=== PATIENT | male | born 1950 | race Caucasian/White ===

== ENCOUNTER 2017-05-13 05:15 | Inpatient (IN) | END 2017-05-17 19:01 | DRG 308 ==

== ENCOUNTER 2017-05-22 13:55 | Inpatient (IN) | END 2017-05-24 11:30 | disposition home or self-care (01) | DRG 308 ==

== ENCOUNTER 2017-06-13 08:13 | Inpatient (IN) | END 2017-07-04 18:50 | DRG 286 ==

== ENCOUNTER 2017-07-08 19:30 | Inpatient (IN) | END 2017-07-28 16:23 | DRG 219 ==

== ENCOUNTER 2017-07-30 14:30 | Inpatient (IN) | END 2017-08-06 19:40 | DRG 313 ==

== ENCOUNTER 2017-08-07 11:00 | Inpatient (IN) | END 2017-10-28 19:00 | DRG 242 ==

== ENCOUNTER 2018-06-21 20:20 | Inpatient (IN) | payer MEDICARE, MEDICAID ==
[~2018-06-21] VITALS: Ht 175.3 cm; Wt 89.9 kg
[~2018-06-21 20:20] MED LIST: ACET-2047 PO; ALPR0.254 PO; APIX5TAB PO; ASCO500C7 PO; BUDE6HFA INHALATION; DULO30CA45 PO; FER325 PO; HYDR-3671 PO; ISOS10TA2 PO; METO25TA4 PO; MULTI PO; NITR0.4T39 SL; ONDA4TAB95 PO; PANT40TA3 PO; SENN-120 PO
--- NOTE | 2018-06-21 20:50 | ERD ---
ER Documentation Chief Complaint Chief Complaint bib pa from long term for trach problem and abd. labs HPI This is a 68-year-old bilateral BKA patient trach dependent who was sent from the nursing facility because of platelet count of 4 and bleeding from his tracheostomy. The patient is able to shake his head yes and no and answer basic questions he tells me he is not in pain and that he does not feel bad. He says he has not had a cough no blood in his stool no hematuria but has been having some blood discharge from his trach ROS All systems reviewed and are negative except as per history of present illness. Medications Home Meds Reported Medications Ondansetron Hcl* (Ondansetron Hcl*) 4 Mg Tablet, 4 MG PO Q4H PRN for NAUSEA AND OR VOMITING, TAB 11/11/17 Budesonide-Formoterol Fumarate* (Symbicort*) 160-4.5 Hfa.aer.ad, 1 PUFF INHALATION BID, #1 EACH 11/11/17 Sennosides* (Senna Lax*) 8.6 Mg Tablet, 1 TAB PO BID, TAB 11/11/17 Multivitamins* (Theragran*) 1 Tab Tab, 1 TAB PO DAILY, TAB 11/11/17 Metoprolol Tartrate* (Lopressor*) 25 Mg Tablet, 25 MG PO BID, #60 TAB 11/11/17 Isosorbide Dinitrate* (Isosorbide Dinitrate*) 10 Mg Tablet, 10 MG PO TID, TAB 11/11/17 Ascorbic Acid* (Vitamin C*) 500 Mg Capsule.sa, 500 MG PO DAILY, CAP 11/11/17 Pantoprazole* (Protonix*) 40 Mg Tablet.dr, 40 MG PO AC BREAKFAST, TAB 08/07/17 Hydralazine Hcl* (Hydralazine Hcl*) 25 Mg Tab, 25 MG PO Q4 PRN for ELEVATED BLO OD PRESSURE, #60 TAB 08/07/17 Apixaban* (Eliquis*) 5 Mg Tablet, 5 MG PO BID, TAB 08/07/17 Nitroglycerin* (Nitrostat*) 0.4 Mg Tab.subl, 0.4 MG SL Q5MIN PRN for CHEST PAIN, BOTTLE 05/19/17 Duloxetine Hcl* (Cymbalta*) 30 Mg Capsule.dr, 30 MG PO DAILY, CAP 05/19/17 Acetaminophen* (Acetaminophen*) 650 Mg Tablet, 650 MG PO Q6H PRN for MILD TO MODERATE PAIN, #30 TAB 03/18/17 Alprazolam* (Alprazolam*) 0.25 Mg Tablet, 0.25 MG PO TID PRN for ANXIETY, TAB 03/18/17 Ferrous Sulfate* (Ferrous Sulfate*) 325 Mg Tabec, 325 MG PO DAILY, TAB 03/18/17 Allergies Allergies: Coded Allergies: ciprofloxacin (Verified Allergy, Mild, ITCHINESS, RASH , 02/27/18) Penicillins (Verified Allergy, Unknown, 02/27/18) garlic (Verified Allergy, Unknown, 02/27/18) STOMACH UPSET morphine (Verified Allergy, Unknown, 02/27/18) povidone-iodine (Verified Allergy, Unknown, RASH, 02/27/18) soap (Verified Allergy, Unknown, RASH, 02/27/18) PMhx/Soc History of Surgery: Yes Anesthesia Reaction: No Hx Neurological Disorder: No Hx Respiratory Disorders: No Hx Cardiac Disorders: Yes Hx Psychiatric Problems: No Hx Miscellaneous Medical Probl: No Hx Alcohol Use: No Hx Substance Use: No Hx Tobacco Use: Yes FmHx Family History: No coronary disease Physical Exam Vitals Vital Signs Date Temp Pulse Resp B/P (MAP) Pulse Ox O2 O2 Flow FiO2 Time Delivery Rate 06/21/18 71 15 124/64 99 Mechanical 21:35 (84) Ventilator 06/21/18 72 15 152/91 98 Mechanical 21:13 (111) Ventilator 06/21/18 70 15 98 40 20:55 06/21/18 97.3 89 19 152/91 100 20:36 (111) Physical Exam Const: Well-developed, well-nourished Head: Atraumatic, normocephalic Eyes: Normal Conjunctiva, PERRLA, EOMI, normal sclera, no nystagmus ENT: Normal External Ears, Nose and Mouth, moist mucus membranes. Neck: Full range of motion. No meningismus, no lymphadenopathy mild erythema to the skin around the tracheostomy, there is blood in the trach that we suctioned out a few cc. Resp: Clear to auscultation bilaterally, no wheezing, rhonchi, rales Cardio: Regular rate and rhythm, no murmurs, S1 S2 present Abd: Soft, non tender x 4, non distended. Normal bowel sounds, no guarding or rebound, no pulsitile abdominal masses or bruits Skin: No petechiae or rashes, no ecchymosis , no maculopapular rash Back: No midline or flank tenderness Ext: No cyanosis, or edema, FROM x 4, normal inspection, neurovascularly intact x 4 Neur: Awake and alert, STR 5/5 x 4, sensation intact x 4, no focal findings, cerebellum intact Psych: Normal Mood and Affect Result Diagram: 06/21/18210406/21/182104 Results 24 hrs Laboratory Tests Test 06/21/18 21:05 White Blood Count 6.5 10^3/ul Red Blood Count 2.92 10^6/ul Hemoglobin 7.5 g/dl Hematocrit 26.1 % Mean Corpuscular Volume 89.4 fl Mean Corpuscular Hemoglobin 25.7 pg Mean Corpuscular Hemoglobin Concent 28.7 g/dl Red Cell Distribution Width 18.4 % Platelet Count 2 10^3/UL Mean Platelet Volume 9.4 fl Immature Granulocytes % 0.800 % Neutrophils % % Segmented Neutrophils % (Manual) 68 % Band Neutrophils % (Manual) 1 % Lymphocytes % % Lymphocytes % (Manual) 17 % Reactive Lymphocytes % (Manual) 2 % Monocytes % % Monocytes % (Manual) 11 % Eosinophils % % Eosinophils % (Manual) 1 % Basophils % % Nucleated Red Blood Cells % 0.0 /100WBC Immature Granulocytes # 0.050 10^3/ul Neutrophils # 10^3/ul Neutrophils # (Manual) 4.4 10^3/ul Band Neutrophils # 0.0 10^3/ul Lymphocytes (Manual) 1.1 10^3/ul Lymphocytes # 10^3/ul Reactive Lymphocytes # 0.1 10^3/ul Monocytes # 10^3/ul Monocytes # (Manual) 0.7 10^3/ul Eosinophils # 10^3/ul Basophils # 10^3/ul Nucleated Red Blood Cells # 10^3/ul Platelet Estimate SIG DECREASED Giant Platelets 1 % Polychromasia 2+ Anisocytosis 1+ Microcytosis 1+ Prothrombin Time 15.8 Sec Prothrombin Time Ratio 1.2 INR International Normalized Ratio 1.25 Activated Partial Thromboplast Time 39.4 Sec Sodium Level 141 mmol/L Potassium Level 4.5 mmol/L Chloride Level 98 mmol/L Carbon Dioxide Level 33 mmol/L Anion Gap 10 Blood Urea Nitrogen 47 mg/dl Creatinine 0.64 mg/dl Est Glomerular Filtrat Rate mL/min > 60 mL/min Glucose Level 91 mg/dl Calcium Level 9.0 mg/dl Total Bilirubin 1.3 mg/dl Direct Bilirubin 0.00 mg/dl Indirect Bilirubin 1.3 mg/dl Aspartate Amino Transf (AST/SGOT) 43 IU/L Alanine Aminotransferase (ALT/SGPT) 14 IU/L Alkaline Phosphatase 176 IU/L B-Type Natriuretic Peptide 42921 PG/ML Total Protein 8.3 g/dl Albumin 3.4 g/dl Globulin 4.90 g/dl Albumin/Globulin Ratio 0.69 Current Medications Medications Dose Sig/Swathi Start Time Status Last (Trade) Ordered Route PRN Stop Time Admin Dose Reason Admin Furosemide 40 mg ONCE ONCE 06/21/18 DC (Lasix) IV 23:00 06/21/18 23:01 Procedures/MDM Ordering MD: MANFRED EDMONDSON DO Location: E/R Room/Bed: PROCEDURE: XR Chest. CLINICAL INDICATION: shortness of breath TECHNIQUE: Single portable view of the chest was obtained COMPARISON: 04/02/18 FINDINGS: There is moderate cardiomegaly. There is severe pulmonary vascular congestion. There are bilateral perihilar and lower lobe increased interstitial changes. There is a tracheostomy tube and left-sided pacemaker in place. There are moderate bilateral pleural effusions. There is no pneumothorax. RPTAT: AA IMPRESSION: Moderate cardiomegaly with severe pulmonary vascular congestion. .James Jeffers MD, MD Date Time Electronically viewed and signed by .James Jeffers MD, on 06/21/2018 21:43 .S/ CC: MANFRED EDMONDSON DO [id number] Platelets were found to be level of 2 which is critical. He was getting be getting 4 rounds of platelets here with 2 packed red blood cells due to hemoglobin of 7.5. He has a very wet chest x-ray with a BNP of 12,700 give him a dose of Lasix here as well. Spoke with Dr. Mcgee will admit to telemetry. Critical Care Time: 35 minutes Treatments/Evaluations: Close monitoring and treatment of unstable vital signs, cardiorespiratory, and neurologic status, while maintaining tight balance of fluid, respiratory, and cardiac interventions. This time includes discussing the case with the patient and the patient's family. This time does not include all procedures stated elsewhere in this record. This time also includes reviewing old records, labs and radiological studies. This time includes examining and re- examining the patient. Additionally, this time also includes arranging care with admitting and consulting physicians. Departure Diagnosis: Primary Impression: Thrombocytopenia Additional Impressions: Anemia Anemia type: unspecified type Qualified Codes: D64.9 - Anemia, unspecified CHF (congestive heart failure) Heart failure type: unspecified Heart failure chronicity: unspecified Qualified Codes: I50.9 - Heart failure, unspecified Condition: MANFRED Ramey DO Jun 21, 2018 20:50
[2018-06-21] MEDS ORDERED: FUROSEMIDE 40 MG INJ IV ONE (23:00)
[2018-06-21] MEDS ORDERED: NACL 0.9% 3 ML SYG IV SCH (23:30)
[2018-06-21] MEDS ORDERED: ONDANSETRON 4 MG INJ IV PRN ×2 (23:30)
[2018-06-21] MEDS ORDERED: ACETAMINOPHEN 325 MG TAB PO PRN ×2 (23:30)
[2018-06-21] MEDS ORDERED: morphine 2 MG INJ IV PRN (23:30)
[2018-06-22] VITALS (20 sets, daily range): BP systolic 137–167; BP diastolic 63–78; PULSE 60–93; RESP 14–23; Ht 175.3 cm; Wt 89.9 kg
[2018-06-22] MEDS: FAMOTIDINE 20 MG INJ IV SCH ×2 (08:56→21:57)
--- NOTE | 2018-06-22 12:28 | HP ---
Date/Time of Note Date/Time of Note DATE: 06/22/18 TIME: 12:25 Assessment/Plan VTE Prophylaxis Pharmacological prophylaxis: NA/contraindicated Pharm contraindication: blood coag disorder Lines/Catheters [facility] Urinary Cath still in place: Yes Reason Cath still needed: skin wounds contaminated by urine Assessment/Plan Hospital Course 1) thrombocytopenia - transfuse - monitor - consider further workup if problem persists 2) anemia - probably secondary to #1 - transfuse - monitor levels 3) respiratory failure - trach still in place 4) diabetes - monitor blood sugar Result Diagram: 06/21/18210406/21/182104 Results 24hrs Laboratory Tests Test 06/21/18 21:05 06/22/18 07:50 White Blood Count 6.5 # Red Blood Count 2.92 L Hemoglobin 7.5 L Hematocrit 26.1 L Mean Corpuscular Volume 89.4 Mean Corpuscular Hemoglobin 25.7 L Mean Corpuscular Hemoglobin Concent 28.7 L Red Cell Distribution Width 18.4 H Platelet Count 2 #*L Mean Platelet Volume 9.4 Immature Granulocytes % 0.800 H Neutrophils % Segmented Neutrophils % (Manual) 68 Band Neutrophils % (Manual) 1 Lymphocytes % Lymphocytes % (Manual) 17 Reactive Lymphocytes % (Manual) 2 H Monocytes % Monocytes % (Manual) 11 Eosinophils % Eosinophils % (Manual) 1 Basophils % Nucleated Red Blood Cells % 0.0 Immature Granulocytes # 0.050 H Neutrophils # Neutrophils # (Manual) 4.4 Band Neutrophils # 0.0 Lymphocytes (Manual) 1.1 Lymphocytes # Reactive Lymphocytes # 0.1 H Monocytes # Monocytes # (Manual) 0.7 Eosinophils # Basophils # Nucleated Red Blood Cells # Platelet Estimate SIG DECREASED Giant Platelets 1 H Polychromasia 2+ Anisocytosis 1+ Microcytosis 1+ Prothrombin Time 15.8 #H Prothrombin Time Ratio 1.2 INR International Normalized Ratio 1.25 Activated Partial Thromboplast Time 39.4 H Sodium Level 141 Potassium Level 4.5 Chloride Level 98 Carbon Dioxide Level 33 H Anion Gap 10 Blood Urea Nitrogen 47 H Creatinine 0.64 Est Glomerular Filtrat Rate mL/min > 60 Glucose Level 91 Calcium Level 9.0 Total Bilirubin 1.3 Direct Bilirubin 0.00 Indirect Bilirubin 1.3 H Aspartate Amino Transf (AST/SGOT) 43 Alanine Aminotransferase (ALT/SGPT) 14 Alkaline Phosphatase 176 H B-Type Natriuretic Peptide 22091 H Total Protein 8.3 H Albumin 3.4 Globulin 4.90 H Albumin/Globulin Ratio 0.69 Bedside Glucose 111 HPI/ROS Admit Date/Time Admit Date/Time Jun 21, 2018 at 23:06 Hx of Present Illness Patient with coronary artery disease, respiratory failure with trach was transferred from [facility] for abnormal labs and tracheal bleeding. Patient was found to have severely low platelets and so was transferred for treatment and further evaluation of thrombocytopenia. PMH/Family/Social Past Medical History Respiratory failure Medical History: coronary artery disease, diabetes Medications Current Medications Ondansetron HCl (Zofran Inj) 4 mg ER BRIDGE PRN IV NAUSEA/VOMITING; Start 06/21/18 at 23:30; Stop 06/22/18 at 23:29 Acetaminophen (Tylenol Tab) 650 mg ER BRIDGE PRN PO .MILD PAIN 1-3 OR TEMP; Start 06/21/18 at 23:30; Stop 06/22/18 at 23:29 IV Flush (NS 3 ml) 3 ml PER PROTOCOL IV ; Start 06/21/18 at 23:30 Ondansetron HCl (Zofran Inj) 4 mg Q6H PRN IV NAUSEA/VOMITING; Start 06/21/18 at 23:30 Acetaminophen (Tylenol Tab) 650 mg Q6H PRN PO .PAIN 1-3 OR TEMP Last administered on 06/22/18at 10:37; Admin Dose 650 MG; Start 06/21/18 at 23:30 Famotidine (Pepcid Iv) 20 mg Q12 IV Last administered on 06/22/18at 08:56; Admin Dose 20 MG; Start 06/22/18 at 09:00 Hydromorphone HCl (Dilaudid) 1 mg Q6H PRN IV SEVERE PAIN LEVEL 7-10; Start 06/22/18 at 10:00 Clonidine (Catapres) 0.1 mg Q6H PRN GTB ELEVATED BLOOD PRESSURE Last administered on 06/22/18at 10:36; Admin Dose 0.1 MG; Start 06/22/18 at 10:00 Coded Allergies: ciprofloxacin (Verified Allergy, Mild, ITCHINESS, RASH , 02/27/18) Penicillins (Verified Allergy, Unknown, 02/27/18) garlic (Verified Allergy, Unknown, 02/27/18) STOMACH UPSET morphine (Verified Allergy, Unknown, 02/27/18) povidone-iodine (Verified Allergy, Unknown, RASH, 02/27/18) soap (Verified Allergy, Unknown, RASH, 02/27/18) Past Surgical History Past Surgical Hx: other Family History Significant Family History: no pertinent family hx Social History Smoking Status: Unknown if ever smoked Exam/Review of Systems Vital Signs Vitals Vital Signs Date Temp Pulse Resp B/P (MAP) Pulse Ox O2 O2 Flow FiO2 Time Delivery Rate 06/22/18 87 12:16 06/22/18 99.5 10:37 06/22/18 16 99 40 09:00 06/22/18 167/78 Mechanical 07:00 (107) Ventilator Exam Constitutional: well developed Head: normocephalic, atraumatic Neck: supple Respiratory: diminished breath sounds Cardiovascular: regular rate and rhythm Gastrointestinal: soft, non-tender Extremities: normal pulses JACKIE SHAVER Jun 22, 2018 12:28
[2018-06-22] MEDS: HYDROmorphONE 1 MG/ML SYG IV PRN (13:35)
[2018-06-22] MEDS: LORAZEPAM 2 MG INJ IV PRN ×2 (18:39→21:58)
[2018-06-23] VITALS (23 sets, daily range): BP systolic 142–174; BP diastolic 59–80; PULSE 69–113; RESP 14–21
[2018-06-23] MEDS: LORAZEPAM 2 MG INJ IV PRN ×4 (02:04→22:45)
[2018-06-23] MEDS: FAMOTIDINE 20 MG INJ IV SCH (09:02)
[2018-06-23] MEDS ORDERED: FUROSEMIDE 20 MG INJ IV ONE (11:00)
[2018-06-23] MEDS ORDERED: METO-429 PO (12:49)
[2018-06-23] MEDS ORDERED: OMEP40CA6 PO (12:49)
[2018-06-23] MEDS ORDERED: NOVO7030 SC (12:49)
[2018-06-23] MEDS ORDERED: ATOR20TA38 PO (12:49)
[2018-06-23] MEDS ORDERED: HYDR-3672 PO (12:49)
[2018-06-23] MEDS ORDERED: TRAM50TA2 PO (12:49)
[2018-06-23] MEDS ORDERED: GABA400C PO (12:49)
--- NOTE | 2018-06-23 13:07 | PN ---
Date/Time of Note Date/Time of Note DATE: 06/23/18 TIME: 13:02 Assessment/Plan VTE [place]axis [place] [facility] [place] 6 [place] [facility] [place] SCD contraindicated: bilateral amputee Pharmacological prophylaxis: NA/contraindicated Pharm contraindication: bleeding, thrombocytopenia Lines/Catheters [facility] Central line still needed: Yes Urinary Cath still in place: Yes Reason Cath still needed: urinary retention Assessment/Plan Hospital Course Patient is a very lethargic but arousable able to answer basic questions, undergoing platelets transfusion, continues on ventilatory support via trach. Assessment/Plan -Severe thrombocytopenia, patient is undergoing platelet transfusion. Dr. Inman is asked to see patient in hematology consultation. -Anemia -Hx of Atrial flutter. Continue metoprolol, hold Eliquis due to bleeding. -Cardiomyopathy with ejection fraction of 40% -Diabetes mellitus. Continue Lantus and NovoLog. 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 -Hx of Stage III sacral decubitus ulcer Further recommendations based on clinical course. Plan of care discussed with Dr. Villatoro. Result Diagram: 06/23/18 0634 06/23/18 0634 Results 24hrs Laboratory Tests Test 06/22/18 14:26 06/23/18 06:34 06/23/18 08:48 White Blood Count 6.6 4.6 #L Red Blood Count 3.20 L 3.40 L Hemoglobin 8.6 L 9.2 L Hematocrit 28.2 L 30.2 L Mean Corpuscular Volume 88.1 88.8 Mean Corpuscular Hemoglobin 26.9 L 27.1 L Mean Corpuscular 30.5 L 30.5 L Hemoglobin Concent Red Cell Distribution Width 16.8 H 16.7 H Platelet Count 2 *L 1 #*L Mean Platelet Volume Immature Granulocytes % 1.100 H 0.900 H Neutrophils % 76.6 Lymphocytes % 12.6 L Monocytes % 8.0 Eosinophils % 1.2 Basophils % 0.5 Nucleated Red Blood Cells % 0.0 0.0 Immature Granulocytes # 0.070 H 0.040 H Neutrophils # 5.1 Lymphocytes # 0.8 Monocytes # 0.5 Eosinophils # 0.1 Basophils # 0.0 Nucleated Red Blood Cells # 0.0 Sodium Level 142 145 H Potassium Level 4.4 4.3 Chloride Level 102 104 Carbon Dioxide Level 31 32 H Anion Gap 9 9 Blood Urea Nitrogen 35 #H 29 H Creatinine 0.70 0.68 Est Glomerular Filtrat > 60 > 60 Rate mL/min Glucose Level 130 169 Hemoglobin A1c 5.1 Calcium Level 8.8 9.2 Total Bilirubin 1.9 H Direct Bilirubin 0.00 Indirect Bilirubin 1.9 H Aspartate Amino 32 Transf (AST/SGOT) Alanine 16 Aminotransferase (ALT/SGPT) Alkaline Phosphatase 154 H Total Protein 7.5 Albumin 3.1 L Globulin 4.40 H Albumin/Globulin Ratio 0.70 Segmented Neutrophils 78 H % (Manual) Band Neutrophils % (Manual) 3 Lymphocytes % (Manual) 11 L Monocytes % (Manual) 4 Eosinophils % (Manual) 2 Basophils % (Manual) 1 Myelocytes % (Manual) 1 H Neutrophils # (Manual) 3.6 Band Neutrophils # 0.1 Lymphocytes (Manual) 0.5 L Monocytes # (Manual) 0.1 L Basophils # (Manual) 0.0 Myelocytes # 0.0 Platelet Estimate SIG DECREASED Giant Platelets 1 H Polychromasia 1+ Anisocytosis 1+ Microcytosis 1+ Macrocytosis 1+ Lab Scanned Report BLOOD TRANSFUSION Exam/Review of Systems Exam Vitals Vital Signs Date Temp Pulse Resp B/P (MAP) Pulse Ox O2 O2 Flow FiO2 Time Delivery Rate 06/23/18 98.3 69 16 145/59 98 12:47 (87) 06/23/18 30 11:34 06/23/18 Mechanical 04:37 Ventilator Intake and Output 06/22/18 06/22/18 06/23/18 1515:00 23:00 07:00 IntakeIntake Total 888 ml 479 ml OutputOutput Total 1050 ml 400 ml BalanceBalance 888 ml -571 ml -400 ml Constitutional: alert, frail Head: normocephalic Neck: supple, other (trach with bloody secretions) Cardiovascular: regular rate and rhythm Gastrointestinal: soft, non-tender, other (GT) Extremities: other (Bilateral BKA) Neurological: lethargic Results Results 24hrs Laboratory Tests Test 06/22/18 14:26 06/23/18 06:34 06/23/18 08:48 White Blood Count 6.6 4.6 #L Red Blood Count 3.20 L 3.40 L Hemoglobin 8.6 L 9.2 L Hematocrit 28.2 L 30.2 L Mean Corpuscular Volume 88.1 88.8 Mean Corpuscular Hemoglobin 26.9 L 27.1 L Mean Corpuscular 30.5 L 30.5 L Hemoglobin Concent Red Cell Distribution Width 16.8 H 16.7 H Platelet Count 2 *L 1 #*L Mean Platelet Volume Immature Granulocytes % 1.100 H 0.900 H Neutrophils % 76.6 Lymphocytes % 12.6 L Monocytes % 8.0 Eosinophils % 1.2 Basophils % 0.5 Nucleated Red Blood Cells % 0.0 0.0 Immature Granulocytes # 0.070 H 0.040 H Neutrophils # 5.1 Lymphocytes # 0.8 Monocytes # 0.5 Eosinophils # 0.1 Basophils # 0.0 Nucleated Red Blood Cells # 0.0 Sodium Level 142 145 H Potassium Level 4.4 4.3 Chloride Level 102 104 Carbon Dioxide Level 31 32 H Anion Gap 9 9 Blood Urea Nitrogen 35 #H 29 H Creatinine 0.70 0.68 Est Glomerular Filtrat > 60 > 60 Rate mL/min Glucose Level 130 169 Hemoglobin A1c 5.1 Calcium Level 8.8 9.2 Total Bilirubin 1.9 H Direct Bilirubin 0.00 Indirect Bilirubin 1.9 H Aspartate Amino 32 Transf (AST/SGOT) Alanine 16 Aminotransferase (ALT/SGPT) Alkaline Phosphatase 154 H Total Protein 7.5 Albumin 3.1 L Globulin 4.40 H Albumin/Globulin Ratio 0.70 Segmented Neutrophils 78 H % (Manual) Band Neutrophils % (Manual) 3 Lymphocytes % (Manual) 11 L Monocytes % (Manual) 4 Eosinophils % (Manual) 2 Basophils % (Manual) 1 Myelocytes % (Manual) 1 H Neutrophils # (Manual) 3.6 Band Neutrophils # 0.1 Lymphocytes (Manual) 0.5 L Monocytes # (Manual) 0.1 L Basophils # (Manual) 0.0 Myelocytes # 0.0 Platelet Estimate SIG DECREASED Giant Platelets 1 H Polychromasia 1+ Anisocytosis 1+ Microcytosis 1+ Macrocytosis 1+ Lab Scanned Report BLOOD TRANSFUSION Medications Medication Current Medications IV Flush (NS 3 ml) 3 ml PER PROTOCOL IV ; Start 06/21/18 at 23:30 Ondansetron HCl (Zofran Inj) 4 mg Q6H PRN IV NAUSEA/VOMITING; Start 06/21/18 at 23:30 Acetaminophen (Tylenol Tab) 650 mg Q6H PRN PO .PAIN 1-3 OR TEMP Last administered on 06/22/18 10:37; Admin Dose 650 MG; Start 06/21/18 at 23:30 Hydromorphone HCl (Dilaudid) 1 mg Q6H PRN IV SEVERE PAIN LEVEL 7-10 Last administered on 06/22/18 13:35; Admin Dose 1 MG; Start 06/22/18 at 10:00 Clonidine (Catapres) 0.1 mg Q6H PRN GTB ELEVATED BLOOD PRESSURE Last administered on 06/23/18 09:35; Admin Dose 0.1 MG; Start 06/22/18 at 10:00 Lorazepam (Ativan) 1 mg Q4 PRN IV ANXIETY Last administered on 06/23/18 09:35; Admin Dose 1 MG; Start 06/22/18 at 18:30 Pantoprazole (Protonix Iv) 40 mg DAILY@06 IV ; Start 06/24/18 at 06:00 Mupirocin (Bactroban) 1 applic BID TOP ; Start 06/23/18 at 21:00; Stop 07/01/18 at 09:00; Status LIDYA SANCHEZ Jun 23, 2018 13:07
--- NOTE | 2018-06-23 14:18 | CONS ---
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 start steroids dexamethasone 40 mg daily x 4 days then transition to 1 mg/kg daily with slow taper IVIG 1 gm /kg daily x 2 days check fibrinogen and monitor coags if does not have appropriate response to above therapy may need to consider re biopsy of bone marrow transfuse to keep plt > 5K check CBC q 8h keep hgb >7 Consultation Date/Type/Reason Admit Date/Time Jun 21, 2018 at 23:06 Initial Consult Date Date/Time of Note DATE: 06/23/18 TIME: 14:18 24 HR Interval Summary Free Text/Dictation Patient with coronary artery disease, respiratory failure with trach was transferred from [facility] for abnormal labs and tracheal bleeding. Patient was found to have severely low platelets and so was transferred for treatment and further evaluation of thrombocytopenia. Of note his plt count an admission was 2K. He had normal plt count during last admission in the 200K range had Bone marrow biopsy in September 2017 showing no obvious pathology but was suggestive of perhaps peripheral plt destruction + TERESE + Hep C ab but negative pcr negative for Hep B h/o negative antiplt antibodies pt currently has completed plt transfusion Exam/Review of Systems Exam Vitals Vital Signs Date Temp Pulse Resp B/P (MAP) Pulse Ox O2 O2 Flow FiO2 Time Delivery Rate 06/23/18 98.3 69 16 145/59 98 12:47 (87) 06/23/18 30 11:34 06/23/18 Mechanical 04:37 Ventilator Intake and Output 06/22/18 06/22/18 06/23/18 1515:00 23:00 07:00 IntakeIntake Total 888 ml 479 ml OutputOutput Total 1050 ml 400 ml BalanceBalance 888 ml -571 ml -400 ml Constitutional: frail Psych: confusion Head: normocephalic, atraumatic ENMT: nl external ears & nose, nl lips & teeth, nl nasal mucosa & septum Respiratory: normal air movement, diminished breath sounds Gastrointestinal: soft, nl liver, spleen, non-tender Results Result Diagram: 06/23/1834 06/23/18 0634 Results 24hrs Laboratory Tests Test 06/22/18 14:26 06/23/18 06:34 06/23/18 08:48 White Blood Count 6.6 4.6 #L Red Blood Count 3.20 L 3.40 L Hemoglobin 8.6 L 9.2 L Hematocrit 28.2 L 30.2 L Mean Corpuscular Volume 88.1 88.8 Mean Corpuscular Hemoglobin 26.9 L 27.1 L Mean Corpuscular 30.5 L 30.5 L Hemoglobin Concent Red Cell Distribution Width 16.8 H 16.7 H Platelet Count 2 *L 1 #*L Mean Platelet Volume Immature Granulocytes % 1.100 H 0.900 H Neutrophils % 76.6 Lymphocytes % 12.6 L Monocytes % 8.0 Eosinophils % 1.2 Basophils % 0.5 Nucleated Red Blood Cells % 0.0 0.0 Immature Granulocytes # 0.070 H 0.040 H Neutrophils # 5.1 Lymphocytes # 0.8 Monocytes # 0.5 Eosinophils # 0.1 Basophils # 0.0 Nucleated Red Blood Cells # 0.0 Sodium Level 142 145 H Potassium Level 4.4 4.3 Chloride Level 102 104 Carbon Dioxide Level 31 32 H Anion Gap 9 9 Blood Urea Nitrogen 35 #H 29 H Creatinine 0.70 0.68 Est Glomerular Filtrat > 60 > 60 Rate mL/min Glucose Level 130 169 Hemoglobin A1c 5.1 Calcium Level 8.8 9.2 Total Bilirubin 1.9 H Direct Bilirubin 0.00 Indirect Bilirubin 1.9 H Aspartate Amino 32 Transf (AST/SGOT) Alanine 16 Aminotransferase (ALT/SGPT) Alkaline Phosphatase 154 H Total Protein 7.5 Albumin 3.1 L Globulin 4.40 H Albumin/Globulin Ratio 0.70 Segmented Neutrophils 78 H % (Manual) Band Neutrophils % (Manual) 3 Lymphocytes % (Manual) 11 L Monocytes % (Manual) 4 Eosinophils % (Manual) 2 Basophils % (Manual) 1 Myelocytes % (Manual) 1 H Neutrophils # (Manual) 3.6 Band Neutrophils # 0.1 Lymphocytes (Manual) 0.5 L Monocytes # (Manual) 0.1 L Basophils # (Manual) 0.0 Myelocytes # 0.0 Platelet Estimate SIG DECREASED Giant Platelets 1 H Polychromasia 1+ Anisocytosis 1+ Microcytosis 1+ Macrocytosis 1+ Lab Scanned Report BLOOD TRANSFUSION Medications Medication Current Medications IV Flush (NS 3 ml) 3 ml PER PROTOCOL IV ; Start 06/21/18 at 23:30 Ondansetron HCl (Zofran Inj) 4 mg Q6H PRN IV NAUSEA/VOMITING; Start 06/21/18 at 23:30 Acetaminophen (Tylenol Tab) 650 mg Q6H PRN PO .PAIN 1-3 OR TEMP Last administered on 06/22/18at 10:37; Admin Dose 650 MG; Start 06/21/18 at 23:30 Hydromorphone HCl (Dilaudid) 1 mg Q6H PRN IV SEVERE PAIN LEVEL 7-10 Last a dministered on 06/22/18at 13:35; Admin Dose 1 MG; Start 06/22/18 at 10:00 Clonidine (Catapres) 0.1 mg Q6H PRN GTB ELEVATED BLOOD PRESSURE Last administered on 06/23/18at 09:35; Admin Dose 0.1 MG; Start 06/22/18 at 10:00 Lorazepam (Ativan) 1 mg Q4 PRN IV ANXIETY Last administered on 06/23/18at 09:35; Admin Dose 1 MG; Start 06/22/18 at 18:30 Pantoprazole (Protonix Iv) 40 mg DAILY@06 IV ; Start 06/24/18 at 06:00 Mupirocin (Bactroban) 1 applic BID TOP ; Start 06/23/18 at 21:00; Stop 07/01/18 at 09:00 BART MONTOYA Jun 23, 2018 14:18
[2018-06-23] MEDS ORDERED: IMMUNE GLOBULIN (HUMAN) 6 GM INJ IV SCH (15:00)
[2018-06-23] MEDS: DEXAMETHASONE 4 MG TAB PO SCH (15:46)
--- NOTE | 2018-06-23 16:09 | PN ---
DATE: 06/23/2018 ADDENDUM: I called the patient's sister, Georgina, and updated her regarding patient's condition, especially sever e thrombocytopenia. I also explained her differential diagnosis, plan of treatment including steroid s and hemoglobin. All questions answered. Dictated By: NOE MINOR MD AB/NTS Conf#: [id number] DID#: [id number] CC: JACKIE SHAVER MD;*EndCC*
[2018-06-23] MEDS ORDERED: METOPROLOL 5 MG INJ IV PRN (20:00)
[2018-06-23] MEDS ORDERED: hydrALAzine 20 MG INJ IV PRN (20:00)
[2018-06-23] MEDS: ATORVASTATIN 20 MG TAB PO SCH (20:27)
[2018-06-23] MEDS: ISOSORBIDE DINITRATE 10 MG TAB PO SCH (20:28)
[2018-06-23] MEDS: FUROSEMIDE 20 MG INJ IV SCH (20:28)
[2018-06-23] MEDS: [UNRECOGNIZED DRUG - OTHER] IVPB SCH (20:33)
--- NOTE | 2018-06-23 20:35 | CONS ---
DATE OF ADMISSION: 06/21/2018 DATE OF CONSULTATION: 06/23/2018 TYPE OF CONSULTATION: Cardiology. REASON FOR CONSULTATION: Hypertension, history of permanent pacemaker, history of AVR. REQUESTING PHYSICIAN: Roberto Villatoro MD HISTORY OF PRESENT ILLNESS: Mr. 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 Upon arrival, temperature of 98.4, blood pressure 152/91, pulse 89, respiratory rate 18, saturating 100%. The patient's labs were notable for white blood cell count of 6.5, hemoglobin 7.5 and platelet count of 2, sodium 141, potassium 4.5, creatinine 0.64, BUN 47, AST 43, ALT 14, INR 1.25. The patient underwent chest x-ray revealing moderate cardiomegaly and keren re pulmonary vascular congestion. The patient has subsequently been admitted to the floor and since admit to the floor, the patient was given a dose of Lasix, treated with Decadron and has been transfu sed with platelets. PAST MEDICAL HISTORY: As above in HPI. MEDICATIONS CURRENTLY IN HOSPITAL: 1. Protonix 40 mg IV daily. 2. Mupirocin. 3. Decadron 4 mg IV daily. 4. Ativan p.r.n. 5. Dilaudid p.r.n. 6. Clonidine p.r.n. ALLERGIES: 1. PENICILLIN. 2. CIPROFLOXACIN. SOCIAL HISTORY: No current tobacco, EtOH or illicit drug use. FAMILY HISTORY: No history of sudden cardiac or early CAD. REVIEW OF SYSTEMS: As above in HPI. CONSTITUTIONAL: No fevers, chills. PULMONARY: No current shortness of breath. CARDIOVASCULAR: No current signs of chest pain with history of AVR, history of CABG. GASTROINTESTINAL: Dysphagia, status post G-tube. GENITOURINARY: Renal failure. PSYCHIATRIC: Possible psych history. NEUROLOGIC: No documented history of CVA. PHYSICAL EXAMINATION VITAL SIGNS: Temperature of 98.4, blood pressure 164/72, pulse 89, respiratory rate 16, satting 92%. GENERAL: The patient is alert, awake, in no acute distress. NECK: Tracheostomy in place. CHEST: Upper airway transmitted rhonchus sounds. HEART: Regular rate and rhythm. Normal S1, S2, I/ systolic murmur, nondisplaced PMI. ABDOMEN: Positive bowel sounds, soft. EXTREMITIES: No significant pitting edema, 1+ pulses bilaterally posterior tibial. LABORATORIES: Most recently from today, sodium 145, potassium 4.3, creatinine 0.68, BUN 29. White b lood cell count 4.6, hemoglobin 9.2, platelet count of 1. INR of 1.2. IMAGING STUDIES: As above in HPI. No further imaging studies for my review at this time. ELECTROCARDIOGRAM: No electrocardiograms for my review at this time. IMPRESSION: 1. Congestive heart failure by chest x-ray, question systolic versus diastolic, could be diastolic b y most recent echo in 07/2017, acute on chronic. 2. Hypertension, uncontrolled. 3. Dyslipidemia. 4. History of aortic valve replacement with a bioprosthesis in 06/2017. 5. History of coronary artery disease, status post coronary artery bypass graft surgery, receiving L BOBBY to LAD in 06/2017. 6. Thrombocytopenia, severe on steroids, question idiopathic thrombocytopenic purpura. 7. Anemia. 8. Diabetes mellitus. 9. Permanent pacemaker. RECOMMENDATIONS: 1. At this time, we would maintain the patient on telemetry monitoring to follow rhythm and rate con trol closely. 2. We would resume the patient's baseline antihypertensives with hydralazine and metoprolol. 3. We will give patient gentle Lasix diuresis. 4. We will transfuse platelets as you are doing. 5. Continue the patient's steroids. 6. Ongoing hematology evaluation of thrombocytopenia. Follow for any bleeding complications. 7. We will hold on any systemic coagulation in the setting of history of paroxysmal atrial fibrillat ion and flutter given severe thrombocytopenia. 8. We will get a 2D echo to reassess patient's ejection fraction, wall motion or any major valve abn ormalities. Thank you for allowing me to take part in the care of this patient. I will continue to follow him ve ry closely with you with further recommendations to be made as the [facility]. Dictated By: RODGER HEMPHILL/KRYSTAL Conf#: [id number] DID#: [id number] CC: JACKIE SHAVER MD;*EndCC*
[2018-06-23] MEDS: MUPIROCIN 2% 22 GM OINT TOP SCH (20:50)
[2018-06-23] MEDS: HYDROmorphONE 1 MG/ML SYG IV PRN (20:50)
[2018-06-23] MEDS: METOPROLOL 50 MG TAB PO SCH (22:45)
[2018-06-24] VITALS (29 sets, daily range): BP systolic 134–194; BP diastolic 62–91; PULSE 65–108; RESP 14–29
[2018-06-24] MEDS: HYDROmorphONE 1 MG/ML SYG IV PRN ×3 (02:41→21:40)
[2018-06-24] MEDS: LORAZEPAM 2 MG INJ IV PRN ×2 (04:19→08:12)
[2018-06-24] MEDS: FUROSEMIDE 20 MG INJ IV SCH ×2 (06:16→09:14)
[2018-06-24] MEDS: METOPROLOL 50 MG TAB PO SCH ×3 (06:16→21:40)
[2018-06-24] MEDS: PANTOPRAZOLE 40 MG INJ IV SCH (06:33)
[2018-06-24] MEDS: ISOSORBIDE DINITRATE 10 MG TAB PO SCH ×3 (09:14→21:43)
[2018-06-24] MEDS: DEXAMETHASONE 4 MG TAB PO SCH (09:14)
[2018-06-24] MEDS: MUPIROCIN 2% 22 GM OINT TOP SCH ×2 (09:15→23:32)
[2018-06-24] MEDS ORDERED: DIPHENHYDRAMINE 50 MG INJ IV ONE (09:30)
[2018-06-24] MEDS: [UNRECOGNIZED DRUG - OTHER] IVPB SCH (10:12)
--- NOTE | 2018-06-24 14:32 | CONS ---
Consult Date/Type/Reason Admit Date/Time Jun 21, 2018 at 23:06 Initial Consult Date Date/Time of Note DATE: 06/24/18 TIME: 14:29 Subjective NO acute events - BP on high side - pt agitated - plt low - no active bleed - will monitor - pacer on place ROS: per nurse - agitated, no F/C/N/V/D Objective Vitals Vital Signs Date Temp Pulse Resp B/P (MAP) Pulse Ox O2 O2 Flow FiO2 Time Delivery Rate 06/24/18 113 29 100 40 13:55 06/24/18 98.9 152/67 12:00 (95) 06/24/18 Mechanical 07:42 Ventilator Intake and Output 06/23/18 06/23/18 06/24/18 1515:00 23:00 07:00 IntakeIntake Total 0 ml 1608 ml OutputOutput Total 1600 ml 900 ml BalanceBalance -1600 ml 708 ml Exam General: WN/WD/NAD, AOx agitatetd HEENT: Unicetric/atraumatic/EOMI (does not follow commands) NECK: trach Lymph: no lymphadenopathy HEART: regular with no S3, II/ systolic murmur at apex, paced LUNGS: Coarse sounds ABD: soft, NT, ND, +BS : Intact Neuro: non focal SKIN: chronic changes EXT: trace edema, restraints Results/Medications Result Diagram: 06/24/1881806/24/18818 Results 24 hrs Laboratory Tests Test 06/23/18 15:54 06/23/18 20:27 06/24/18 00:27 06/24/18 08:19 Fibrinogen 501.0 #H White Blood Count 6.0 # 5.1 Red Blood Count 3.34 L 3.38 L Hemoglobin 9.0 L 9.0 L Hematocrit 29.5 L 30.3 L Mean Corpuscular 88.3 89.6 Volume Mean Corpuscular 26.9 L 26.6 L Hemoglobin Mean Corpuscular 30.5 L 29.7 L Hemoglobin Concent Red Cell 16.6 H 17.0 H Distribution Width Platelet Count 2 #*L 7 #*L Mean Platelet Volume Immature 0.700 H 0.800 H Granulocytes % Neutrophils % 87.8 H Segmented 92 H Neutrophils % (Manual) Band Neutrophils % 4 (Manual) Lymphocytes % 6.7 L Lymphocytes % 4 L (Manual) Monocytes % 4.5 Eosinophils % 0.0 Basophils % 0.2 Nucleated Red 0.0 0.0 Blood Cells % Immature 0.040 H 0.040 H Granulocytes # Neutrophils # 4.5 Neutrophils # 5.5 (Manual) Band Neutrophils # 0.2 Lymphocytes 0.2 L (Manual) Lymphocytes # 0.3 L Monocytes # 0.2 L Eosinophils # 0.0 Basophils # 0.0 Nucleated Red 0.0 Blood Cells # Platelet Estimate SIG DECREASED Giant Platelets 1 H Polychromasia 3+ Poikilocytosis 2+ Anisocytosis 1+ Microcytosis 1+ Troponin I 0.071 0.053 Sodium Level 144 Potassium Level 4.3 Chloride Level 98 Carbon Dioxide 29 Level Anion Gap 17 #H Blood Urea 29 H Nitrogen Creatinine 0.67 Est Glomerular > 60 Filtrat Rate mL/min Glucose Level 352 #H Calcium Level 9.3 Home Meds Reported Medications Tramadol HCl (Tramadol HCl) 50 Mg Tablet, 50 MG PO Q6H PRN for PAIN LEVEL 7-10, #120 TAB 06/23/18 Hydralazine Hcl* (Hydralazine Hcl*) 50 Mg Tab, 50 MG PO Q8 for hypertension, #90 TAB 06/23/18 Gabapentin* (Neurontin*) 400 Mg Capsule, 400 MG PO Q8, #90 CAP 06/23/18 Insulin Isophan/Regular (Humulin 70/30) 100 Units/Ml Susp, 18 UNIT SC Q8, EA 06/23/18 Omeprazole* (Omeprazole*) 40 Mg Capsule.dr, 40 MG PO DAILY, #30 CAP 06/23/18 Metoprolol Tartrate* (Lopressor*) 50 Mg Tab, 50 MG PO Q8, #60 TAB 06/23/18 Atorvastatin Calcium* (Atorvastatin Calcium*) 20 Mg Tablet, 20 MG PO QHS, #30 TAB 06/23/18 Ondansetron Hcl* (Ondansetron Hcl*) 4 Mg Tablet, 4 MG PO Q4H PRN for NAUSEA AND OR VOMITING, TAB 11/11/17 Budesonide-Formoterol Fumarate* (Symbicort*) 160-4.5 Hfa.aer.ad, 1 PUFF INHALATION BID, #1 EACH 11/11/17 Sennosides* (Senna Lax*) 8.6 Mg Tablet, 1 TAB PO BID, TAB 11/11/17 Multivitamins* (Theragran*) 1 Tab Tab, 1 TAB PO DAILY, TAB 11/11/17 Isosorbide Dinitrate* (Isosorbide Dinitrate*) 10 Mg Tablet, 10 MG PO TID, TAB 11/11/17 Ascorbic Acid* (Vitamin C*) 500 Mg Capsule.sa, 500 MG PO DAILY, CAP 11/11/17 Pantoprazole* (Protonix*) 40 Mg Tablet.dr, 40 MG PO AC BREAKFAST, TAB 08/07/17 Apixaban* (Eliquis*) 5 Mg Tablet, 5 MG PO BID, TAB 08/07/17 Nitroglycerin* (Nitrostat*) 0.4 Mg Tab.subl, 0.4 MG SL Q5MIN PRN for CHEST PAIN, BOTTLE 05/19/17 Duloxetine Hcl* (Cymbalta*) 30 Mg Capsule.dr, 30 MG PO DAILY, CAP 05/19/17 Acetaminophen* (Acetaminophen*) 650 Mg Tablet, 650 MG PO Q6H PRN for MILD TO MODERATE PAIN, #30 TAB 03/18/17 Alprazolam* (Alprazolam*) 0.25 Mg Tablet, 0.25 MG PO TID PRN for ANXIETY, TAB 03/18/17 Ferrous Sulfate* (Ferrous Sulfate*) 325 Mg Tabec, 325 MG PO DAILY, TAB 03/18/17 Medications Current Medications IV Flush (NS 3 ml) 3 ml PER PROTOCOL IV ; Start 06/21/18 at 23:30 Ondansetron HCl (Zofran Inj) 4 mg Q6H PRN IV NAUSEA/VOMITING Last administered on 06/24/18at 08:09; Admin Dose 4 MG; Start 06/21/18 at 23:30 Acetaminophen (Tylenol Tab) 650 mg Q6H PRN PO .PAIN 1-3 OR TEMP Last administered on 06/22/18at 10:37; Admin Dose 650 MG; Start 06/21/18 at 23:30 Hydromorphone HCl (Dilaudid) 1 mg Q6H PRN IV SEVERE PAIN LEVEL 7-10 Last administered on 06/24/18at 02:41; Admin Dose 1 MG; Start 06/22/18 at 10:00 Clonidine (Catapres) 0.1 mg Q6H PRN GTB ELEVATED BLOOD PRESSURE Last administered on 06/23/18 09:35; Admin Dose 0.1 MG; Start 06/22/18 at 10:00 Lorazepam (Ativan) 1 mg Q4 PRN IV ANXIETY Last administered on 06/24/18 08:12; Admin Dose 1 MG; Start 06/22/18 at 18:30 Pantoprazole (Protonix Iv) 40 mg DAILY@06 IV Last administered on 06/24/18 06:33; Admin Dose 40 MG; Start 06/24/18 at 06:00 Mupirocin (Bactroban) 1 applic BID TOP Last administered on 06/24/18 09:15; Admin Dose 1 APPLIC; Start 06/23/18 at 21:00; Stop 07/01/18 at 09:00 Dexamethasone (Decadron) 4 mg DAILY PO Last administered on 06/24/18 09:14; Admin Dose 4 MG; Start 06/23/18 at 15:00; Stop 06/26/18 at 09:01 Atorvastatin Calcium (Lipitor) 20 mg QHS PO Last administered on 06/23/18 20:27; Admin Dose 20 MG; Start 06/23/18 at 21:00 Hydralazine HCl (Apresoline) 50 mg Q8 PO Last administered on 06/24/18 14:06; Admin Dose 50 MG; Start 06/23/18 at 22:00 Isosorbide Dinitrate (Isordil) 10 mg TID PO Last administered on 06/24/18 14:06; Admin Dose 10 MG; Start 06/23/18 at 21:00 Metoprolol Tartrate (Lopressor) 50 mg Q8 PO Last administered on 06/24/18 14:06; Admin Dose 50 MG; Start 06/23/18 at 22:00 Hydralazine HCl (Apresoline) 10 mg Q4H PRN IV HR>110 Hold SBP<100 Last administered on 06/24/18 04:19; Admin Dose 10 MG; Start 06/23/18 at 20:00 Furosemide (Lasix) 20 mg BID DIURETICS IV Last administered on 06/24/18 09:14; Admin Dose 20 MG; Start 06/23/18 at 20:00 Metoprolol Tartrate (Lopressor) 5 mg Q4H PRN IV HR>110 Hold SBP<100; Start 06/23/18 at 20:00 Collagenase (Santyl) 1 applic DAILY TOP ; Start 06/25/18 at 09:00 Assessment/Plan Hospital Course (Demo Recall) 1. Congestive heart failure by chest x-ray, question systolic versus diastolic, could be diastolic by most recent echo in 07/2017, acute on chronic - con't gentle diuresis. 2. Hypertension, uncontrolled - with agitation - con't med rx. 3. Dyslipidemia. 4. History of aortic valve replacement with a bioprosthesis in 06/2017. Stable by exam. 5. History of coronary artery disease, status post coronary artery bypass graft surgery, receiving AHUJA to LAD in 06/2017. 6. Thrombocytopenia, severe on steroids, question idiopathic thrombocytopenic purpura. 7. Anemia. 8. Diabetes mellitus. 9. Permanent pacemaker- no evidence of malfunction now. REGINA TOMAS MD Jun 24, 2018 14:32
--- NOTE | 2018-06-24 16:51 | RADRPT ---
Echocardiogram Report Patient Name: MEKHI CALIXTOPatient ID: [id number] : 1950 (68y 5m)Study Date: 06/24/2018 8:24:00 AM Gender: MAccession #: [id number] Tech: [place] Location: Ref.Physician: RODGER ROBERTSON Height(Cm): BSA: Weight(Kg): Quality: Technically Difficult StudyAccount #: Procedures: Echocardiographic Report: Transthoracic echocardiogram with complete 2D, M-Mode, and doppler examination. Indications: Congestive Heart Failure. Measurements: 2D/M Mode Doppler Measurement Value Normal Range Measurement Value Normal Range LVIDd 2D 3.0 [ 4.2 - 5.8 ] cm AV Mean Timbo 1.7 [ 70.0 - 90.0 ] cm/sec LVIDs 2D 2.4 [ 2.5 - 4.0 ] cm AV Mean PG 15.0 [ 2.0 - 4.0 ] mmHg LVPWd 2D 1.3 [ 0.6 - 1.0 ] cm AV VTI 54.5 cm IVSd 2D 1.4 [ 0.6 - 1.0 ] cm LVOT Mean Timbo 1.1 [ 60.0 - 80.0 ] cm/sec AoR Diam 2D 2.2 [ 2.6 - 3.4 ] cm LVOT Mean PG 5.0 [ 1.0 - 3.0 ] mmHg EDV 2D 33.6 [ 62.0 - 150.0 ] ml LVOT Peak Timbo 1.6 [ 70.0 - 110.0 ] cm/sec ESV 2D 20.0 [ 21.0 - 61.0 ] ml LVOT Peak PG 10.0 [ 2.0 - 6.0 ] mmHg EF 2D 40.5 [ 52.0 - 72.0 ] percent LVOT VTI 30.0 [ 20.0 - 30.0 ] cm LA Dimen 2D 4.5 [ 3.0 - 4.0 ] cm MV Peak Timbo 2.3 [ 60.0 - 130.0 ] cm/sec MV Peak PG 20.0 [ 1.0 - 10.0 ] mmHg MV Mean Timbo 1.6 cm/sec MV Mean PG 11.0 mmHg MV VTI 37.1 cm TR Peak Timbo 4.6 [ 100.0 - 280.0 ] cm/sec TR Peak PG 84.0 mmHg RVSP 92.0 [ 10.0 - 36.0 ] mmHg RA Pressure 8.0 mmHg Findings: Left Ventricle: Normal left ventricular systolic function. Normal left ventricular cavity size. Moderate concentric left ventricular hypertrophy. Ejection fraction is visually estimated at 55 %. Abnormal Diastolic Function. Right Ventricle: Normal right ventricular size. Normal right ventricular systolic function. Linear artifact in right ventricle suggestive of catheter, pacer lead, or ICD lead. Left Atrium: There is mild enlargement of left atrium. Right Atrium: The right atrium is normal in size. Mitral Valve: Mitral valve is not well visualized. Moderate mitral leaflet calcification. Moderate mitral annular calcification. Trace mitral regurgitation. Moderate to severe mitral stenosis. Mitral valve Max Velocity 2.25 m/sec. MaxPG 20.00 mmHg. MeanPG 11.00 mmHg. Aortic Valve: Aortic Valve Bio Prosthesis. Aortic valve Max velocity 2.70 m/sec. Max PG 29.00 mmHg. Mean PG 15.00 mmHg. No aortic regurgitation. Tricuspid Valve: Normal appearance of the tricuspid valve. Estimated peak PA systolic pressure 92 mmHg. Pulmonic Valve: Pulmonic valve not well visualized. Pericardium: Normal pericardium with no significant pericardial effusion. Aorta: Normal aortic root. IVC: Inferior vena cava without respiratory collapse, however, patient on ventilator. Conclusions: Normal left ventricular systolic function. Normal left ventricular cavity size. Moderate concentric left ventricular hypertrophy. Ejection fraction is visually estimated at 55 %. Abnormal Diastolic Function. There is mild enlargement of left atrium. Mitral valve is not well visualized. Moderate mitral leaflet calcification. Moderate mitral annular calcification. Trace mitral regurgitation. Moderate to severe mitral stenosis by gradient. Would recommend additional immages of mitral valve for improved assessment.Mitral valve Max Velocity 2.25 m/sec. MaxPG 20.00 mmHg. MeanPG 11.00 mmHg. Aortic Valve Bio Prosthesis. Aortic valve Max velocity 2.70 m/sec. Max PG 29.00 mmHg. Mean PG 15.00 mmHg. No aortic regurgitation. Normal appearance of the tricuspid valve. Estimated peak PA systolic pressure 92 mmHg. Electronically Signed By: Rodger Robertson 2018-06-24 16:50:30 PDT
--- NOTE | 2018-06-24 18:30 | PN ---
Date/Time of Note Date/Time of Note DATE: 06/24/18 TIME: 18:29 Assessment/Plan VTE Prophylaxis Risk score (from [facility] [place])>0 risk: 7 SCD applied (from [facility] [place]): No SCD contraindicated: bilateral amputee Pharmacological prophylaxis: NA/contraindicated Pharm contraindication: bleeding, thrombocytopenia Lines/Catheters IV Catheter Type (from [email or web address] Mid Line Central line still needed: Yes Urinary Cath still in place: Yes Reason Cath still needed: urinary retention Assessment/Plan Hospital Course Platelets increased to 11K, continue current treatment, pt continues on vent, stable VS. Assessment/Plan -Severe thrombocytopenia, s/p platelet transfusion. Possible ITP, continue steroids, IVIG. Dr. Inman is following in hematology consultation. -Anemia, monitor H&H. -Hx of Atrial flutter. Continue metoprolol, hold Eliquis due to bleeding. -Cardiomyopathy with ejection fraction of 40% -Diabetes mellitus. Continue Lantus and NovoLog. 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 -Hx of Stage III sacral decubitus ulcer Further recommendations based on clinical course. Plan of care discussed with Dr. Villatoro. Result Diagram: 06/24/18 1734 06/24/18 0819 Results 24hrs Laboratory Tests Test 06/23/18 20:27 06/24/18 00:27 06/24/18 08:19 06/24/18 14:42 White Blood Count 6.0 # 5.1 Red Blood Count 3.34 L 3.38 L Hemoglobin 9.0 L 9.0 L Hematocrit 29.5 L 30.3 L Mean Corpuscular 88.3 89.6 Volume Mean Corpuscular 26.9 L 26.6 L Hemoglobin Mean Corpuscular 30.5 L 29.7 L Hemoglobin Concent Red Cell 16.6 H 17.0 H Distribution Width Platelet Count 2 #*L 7 #*L Mean Platelet Volume Immature 0.700 H 0.800 H Granulocytes % Neutrophils % 87.8 H Segmented 92 H Neutrophils % (Manual) Band Neutrophils % 4 (Manual) Lymphocytes % 6.7 L Lymphocytes % 4 L (Manual) Monocytes % 4.5 Eosinophils % 0.0 Basophils % 0.2 Nucleated Red 0.0 0.0 Blood Cells % Immature 0.040 H 0.040 H Granulocytes # Neutrophils # 4.5 Neutrophils # 5.5 (Manual) Band Neutrophils # 0.2 Lymphocytes 0.2 L (Manual) Lymphocytes # 0.3 L Monocytes # 0.2 L Eosinophils # 0.0 Basophils # 0.0 Nucleated Red 0.0 Blood Cells # Platelet Estimate SIG DECREASED Giant Platelets 1 H Polychromasia 3+ Poikilocytosis 2+ Anisocytosis 1+ Microcytosis 1+ Troponin I 0.071 0.053 0.055 Sodium Level 144 Potassium Level 4.3 Chloride Level 98 Carbon Dioxide 29 Level Anion Gap 17 #H Blood Urea 29 H Nitrogen Creatinine 0.67 Est Glomerular > 60 Filtrat Rate mL/min Glucose Level 352 #H Calcium Level 9.3 Test 06/24/18 17:34 Platelet Count 11 #*L Exam/Review of Systems Exam Vitals Vital Signs Date Temp Pulse Resp B/P (MAP) Pulse Ox O2 O2 Flow FiO2 Time Delivery Rate 06/24/18 99.0 74 17 153/77 93 18:00 (102) 06/24/18 30 17:34 06/24/18 Mechanical 07:42 Ventilator Intake and Output 06/23/18 06/23/18 06/24/18 1515:00 23:00 07:00 IntakeIntake Total 0 ml 1608 ml OutputOutput Total 1600 ml 900 ml BalanceBalance -1600 ml 708 ml Exam Constitutional: alert, frail Head: normocephalic Neck: supple, other (trach with bloody secretions) Cardiovascular: regular rate and rhythm Gastrointestinal: soft, non-tender, other (GT) Extremities: other (Bilateral BKA) Neurological: lethargic Results Results 24hrs Laboratory Tests Test 06/23/18 20:27 06/24/18 00:27 06/24/18 08:19 06/24/18 14:42 White Blood Count 6.0 # 5.1 Red Blood Count 3.34 L 3.38 L Hemoglobin 9.0 L 9.0 L Hematocrit 29.5 L 30.3 L Mean Corpuscular 88.3 89.6 Volume Mean Corpuscular 26.9 L 26.6 L Hemoglobin Mean Corpuscular 30.5 L 29.7 L Hemoglobin Concent Red Cell 16.6 H 17.0 H Distribution Width Platelet Count 2 #*L 7 #*L Mean Platelet Volume Immature 0.700 H 0.800 H Granulocytes % Neutrophils % 87.8 H Segmented 92 H Neutrophils % (Manual) Band Neutrophils % 4 (Manual) Lymphocytes % 6.7 L Lymphocytes % 4 L (Manual) Monocytes % 4.5 Eosinophils % 0.0 Basophils % 0.2 Nucleated Red 0.0 0.0 Blood Cells % Immature 0.040 H 0.040 H Granulocytes # Neutrophils # 4.5 Neutrophils # 5.5 (Manual) Band Neutrophils # 0.2 Lymphocytes 0.2 L (Manual) Lymphocytes # 0.3 L Monocytes # 0.2 L Eosinophils # 0.0 Basophils # 0.0 Nucleated Red 0.0 Blood Cells # Platelet Estimate SIG DECREASED Giant Platelets 1 H Polychromasia 3+ Poikilocytosis 2+ Anisocytosis 1+ Microcytosis 1+ Troponin I 0.071 0.053 0.055 Sodium Level 144 Potassium Level 4.3 Chloride Level 98 Carbon Dioxide 29 Level Anion Gap 17 #H Blood Urea 29 H Nitrogen Creatinine 0.67 Est Glomerular > 60 Filtrat Rate mL/min Glucose Level 352 #H Calcium Level 9.3 Test 06/24/18 17:34 Platelet Count 11 #*L Medications Medication Current Medications IV Flush (NS 3 ml) 3 ml PER PROTOCOL IV ; Start 06/21/18 at 23:30 Ondansetron HCl (Zofran Inj) 4 mg Q6H PRN IV NAUSEA/VOMITING Last administered on 06/24/18 08:09; Admin Dose 4 MG; Start 06/21/18 at 23:30 Acetaminophen (Tylenol Tab) 650 mg Q6H PRN PO .PAIN 1-3 OR TEMP Last admini stered on 06/22/18 10:37; Admin Dose 650 MG; Start 06/21/18 at 23:30 Hydromorphone HCl (Dilaudid) 1 mg Q6H PRN IV SEVERE PAIN LEVEL 7-10 Last administered on 06/24/18 14:36; Admin Dose 1 MG; Start 06/22/18 at 10:00 Clonidine (Catapres) 0.1 mg Q6H PRN GTB ELEVATED BLOOD PRESSURE Last administered on 06/23/18 09:35; Admin Dose 0.1 MG; Start 06/22/18 at 10:00 Lorazepam (Ativan) 1 mg Q4 PRN IV ANXIETY Last administered on 06/24/18 08:12; Admin Dose 1 MG; Start 06/22/18 at 18:30 Pantoprazole (Protonix Iv) 40 mg DAILY@06 IV Last administered on 06/24/18 06:33; Admin Dose 40 MG; Start 06/24/18 at 06:00 Mupirocin (Bactroban) 1 applic BID TOP Last administered on 06/24/18 09:15; Admin Dose 1 APPLIC; Start 06/23/18 at 21:00; Stop 07/01/18 at 09:00 Dexamethasone (Decadron) 4 mg DAILY PO Last administered on 06/24/18 09:14; Admin Dose 4 MG; Start 06/23/18 at 15:00; Stop 06/26/18 at 09:01 Atorvastatin Calcium (Lipitor) 20 mg QHS PO Last administered on 06/23/18 20:27; Admin Dose 20 MG; Start 06/23/18 at 21:00 Hydralazine HCl (Apresoline) 50 mg Q8 PO Last administered on 06/24/18 14:06; Admin Dose 50 MG; Start 06/23/18 at 22:00 Isosorbide Dinitrate (Isordil) 10 mg TID PO Last administered on 06/24/18 14:06; Admin Dose 10 MG; Start 06/23/18 at 21:00 Metoprolol Tartrate (Lopressor) 50 mg Q8 PO Last administered on 06/24/18 14:06; Admin Dose 50 MG; Start 06/23/18 at 22:00 Hydralazine HCl (Apresoline) 10 mg Q4H PRN IV HR>110 Hold SBP<100 Last administered on 06/24/18 04:19; Admin Dose 10 MG; Start 06/23/18 at 20:00 Furosemide (Lasix) 20 mg BID DIURETICS IV Last administered on 06/24/18 09:14; Admin Dose 20 MG; Start 06/23/18 at 20:00 Metoprolol Tartrate (Lopressor) 5 mg Q4H PRN IV HR>110 Hold SBP<100; Start 06/23/18 at 20:00 Collagenase (Santyl) 1 applic DAILY TOP ; Start 06/25/18 at 09:00 LIDYA DC Jun 24, 2018 18:29
[2018-06-24] MEDS: ATORVASTATIN 20 MG TAB PO SCH (21:43)
[2018-06-25] VITALS (30 sets, daily range): BP systolic 130–172; BP diastolic 62–108; PULSE 60–86; RESP 14–20
[2018-06-25] MEDS: LORAZEPAM 2 MG INJ IV PRN ×2 (02:00→22:18)
[2018-06-25] MEDS: FUROSEMIDE 20 MG INJ IV SCH ×2 (05:33→17:35)
[2018-06-25] MEDS: PANTOPRAZOLE 40 MG INJ IV SCH (05:33)
[2018-06-25] MEDS: METOPROLOL 50 MG TAB PO SCH ×3 (05:34→22:54)
[2018-06-25] MEDS: HYDROmorphONE 1 MG/ML SYG IV PRN (05:35)
[2018-06-25] MEDS: DEXAMETHASONE 4 MG TAB PO SCH (08:50)
[2018-06-25] MEDS: COLLAGENASE 5 GM (UD JAR) TOP SCH (08:51)
[2018-06-25] MEDS: ISOSORBIDE DINITRATE 10 MG TAB PO SCH ×3 (08:51→22:53)
[2018-06-25] MEDS: MUPIROCIN 2% 22 GM OINT TOP SCH ×2 (08:52→22:54)
[2018-06-25] MEDS ORDERED: INSULIN ASPART [NOVOLOG] 3 ML PEN SC ONE (10:30)
[2018-06-25] MEDS: INSULIN ASPART [NOVOLOG] 3 ML PEN SC SCH ×2 (11:59→17:22)
--- NOTE | 2018-06-25 12:12 | CONS ---
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, plt count 25K today -not in DIC, fibrinogen not low -he had a bone marrow biopsy during a prior admission which showed enlarged plt and was possibly suggestive of peripheral destruction of platelets -he has + TERESE -has h/o negative HIT ab -given profound drop concern for ITP cont dexamethasone 40 mg daily x 4 days then transition to 1 mg/kg daily with slow taper (by 10 mg weekly) IVIG 1 gm /kg daily x 2 days, completed 06/25/18 -if does not have appropriate response to above therapy may need to consider re biopsy of bone marrow -transfuse to keep plt > 5K check CBC q 8h keep hgb >7 Consultation Date/Type/Reason Admit Date/Time Jun 21, 2018 at 23:06 Initial Consult Date Date/Time of Note DATE: 06/25/18 TIME: 12:10 24 HR Interval Summary Free Text/Dictation last platelet transfusion was 06/23 today plt count is 25K completes day 2 out of 2 of IVIG today on day #3 of dexamethasone Exam/Review of Systems Exam Vitals Vital Signs Date Temp Pulse Resp B/P (MAP) Pulse Ox O2 O2 Flow FiO2 Time Delivery Rate 06/25/18 98.0 64 18 130/72 94 Mechanical 11:08 (91) Ventilator 06/25/18 40 05:20 Intake and Output 06/24/18 06/24/18 06/25/18 1515:00 23:00 07:00 IntakeIntake Total 850 ml 980 ml OutputOutput Total 400 ml 450 ml BalanceBalance 450 ml 530 ml Constitutional: frail Psych: confusion Head: normocephalic Eyes: nl conjunctiva, EOMI, nl lids, nl sclera, PERRL Neck: other (trach in place) Neurological: lethargic Results Result Diagram: 06/25/18 0745 06/25/18 0745 Results 24hrs Laboratory Tests Test 06/24/18 14:42 06/24/18 17:34 06/25/18 07:45 06/25/18 11:49 Troponin I 0.055 Platelet Count 11 #*L 25 #*L White Blood Count 5.5 Red Blood Count 2.92 L Hemoglobin 7.8 L Hematocrit 26.7 L Mean Corpuscular 91.4 Volume Mean Corpuscular 26.7 L Hemoglobin Mean Corpuscular 29.2 L Hemoglobin Concent Red Cell 16.8 H Distribution Width Mean Platelet Volume 13.4 #H Immature 0.900 H Granulocytes % Neutrophils % 78.8 H Lymphocytes % 7.6 L Monocytes % 12.5 H Eosinophils % 0.0 Basophils % 0.2 Nucleated Red Blood 0.0 Cells % Immature 0.050 H Granulocytes # Neutrophils # 4.3 Lymphocytes # 0.4 L Monocytes # 0.7 Eosinophils # 0.0 Basophils # 0.0 Nucleated Red Blood 0.0 Cells # Sodium Level 142 Potassium Level 4.7 Chloride Level 102 Carbon Dioxide Level 33 H Anion Gap 7 # Blood Urea Nitrogen 52 H Creatinine 0.90 Est Glomerular > 60 Filtrat Rate mL/min Glucose Level 554 #*H Calcium Level 8.8 Bedside Glucose 477 *H Medications Medication Current Medications IV Flush (NS 3 ml) 3 ml PER PROTOCOL IV ; Start 06/21/18 at 23:30 Ondansetron HCl (Zofran Inj) 4 mg Q6H PRN IV NAUSEA/VOMITING Last administered on 06/24/18 08:09; Admin Dose 4 MG; Start 06/21/18 at 23:30 Acetaminophen (Tylenol Tab) 650 mg Q6H PRN PO .PAIN 1-3 OR TEMP Last administered on 06/22/18 10:37; Admin Dose 650 MG; Start 06/21/18 at 23:30 Hydromorphone HCl (Dilaudid) 1 mg Q6H PRN IV SEVERE PAIN LEVEL 7-10 Last administered on 06/25/18 05:35; Admin Dose 1 MG; Start 06/22/18 at 10:00 Clonidine (Catapres) 0.1 mg Q6H PRN GTB ELEVATED BLOOD PRESSURE Last administered on 06/23/18 09:35; Admin Dose 0.1 MG; Start 06/22/18 at 10:00 Lorazepam (Ativan) 1 mg Q4 PRN IV ANXIETY Last administered on 06/25/18 02:00; Admin Dose 1 MG; Start 06/22/18 at 18:30 Pantoprazole (Protonix Iv) 40 mg DAILY@06 IV Last administered on 06/25/18 05:33; Admin Dose 40 MG; Start 06/24/18 at 06:00 Mupirocin (Bactroban) 1 applic BID TOP Last administered on 06/25/18 08:52; Admin Dose 1 APPLIC; Start 06/23/18 at 21:00; Stop 07/01/18 at 09:00 Dexamethasone (Decadron) 4 mg DAILY PO Last administered on 06/25/18 08:50; Admin Dose 4 MG; Start 06/23/18 at 15:00; Stop 06/26/18 at 09:01 Atorvastatin Calcium (Lipitor) 20 mg QHS PO Last administered on 06/24/18 21:43; Admin Dose 20 MG; Start 06/23/18 at 21:00 Hydralazine HCl (Apresoline) 50 mg Q8 PO Last administered on 06/25/18 05:35; Admin Dose 50 MG; Start 06/23/18 at 22:00 Isosorbide Dinitrate (Isordil) 10 mg TID PO Last administered on 06/25/18 08:51; Admin Dose 10 MG; Start 06/23/18 at 21:00 Metoprolol Tartrate (Lopressor) 50 mg Q8 PO Last administered on 06/25/18 05:34; Admin Dose 50 MG; Start 06/23/18 at 22:00 Hydralazine HCl (Apresoline) 10 mg Q4H PRN IV HR>110 Hold SBP<100 Last administered on 06/24/18 04:19; Admin Dose 10 MG; Start 06/23/18 at 20:00 Furosemide (Lasix) 20 mg BID DIURETICS IV Last administered on 06/25/18 05:33; Admin Dose 20 MG; Start 06/23/18 at 20:00 Metoprolol Tartrate (Lopressor) 5 mg Q4H PRN IV HR>110 Hold SBP<100; Start 06/23/18 at 20:00 Collagenase (Santyl) 1 applic DAILY TOP Last administered on 06/25/18 08:51; Admin Dose 1 APPLIC; Start 06/25/18 at 09:00 Insulin Aspart (Novolog Insulin Pen) NOVOLOG *MODERATE* ALGORITHM WITH MEALS BEDTIME SC Last administered on 06/25/18 11:59; Admin Dose 12 UNIT; Start 06/25/18 at 11:50 BART MONTOYA Jun 25, 2018 12:12
[2018-06-25] MEDS ORDERED: INSULIN ISOPHAN SC SCH (14:00)
--- NOTE | 2018-06-25 14:04 | PN ---
Date/Time of Note Date/Time of Note DATE: 06/25/18 TIME: 13:59 Assessment/Plan VTE Prophylaxis Risk score (from [facility] [place])>0 risk: 9 SCD applied (from [facility] [place]): No SCD contraindicated: bilateral amputee Pharmacological prophylaxis: NA/contraindicated Pharm contraindication: thrombocytopenia Lines/Catheters IV Catheter Type (from [facility] Mid Line Central line still needed: Yes Urinary Cath still in place: Yes Reason Cath still needed: urinary retention Assessment/Plan Hospital Course Patient with episode of hyperglycemia, given regular insulin, resume NPH Q8hr, continue Novolog sliding scale every 6 hours. Pt tolerates GT feeding Diabetasourse. Patient is currently on steroids for ITP, platelets 25,000 today, hemoglobin is 7.8. Assessment/Plan -Severe thrombocytopenia, s/p platelet transfusion. Possible ITP, continue steroids, IVIG. Dr. Inman is following in hematology consultation. -Anemia, monitor H&H. -Hx of Atrial flutter. Continue metoprolol, hold Eliquis due to bleeding. -Cardiomyopathy with ejection fraction of 40% -Diabetes mellitus. Continue Lantus and NovoLog. 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 -Hx of Stage III sacral decubitus ulcer Further recommendations based on clinical course. Plan of care discussed with Dr. Villatoro. Result Diagram: 06/25/18 0745 06/25/18 0745 Results 24hrs Laboratory Tests Test 06/24/18 14:42 06/24/18 17:34 06/25/18 07:45 06/25/18 11:49 Troponin I 0.055 Platelet Count 11 #*L 25 #*L White Blood Count 5.5 Red Blood Count 2.92 L Hemoglobin 7.8 L Hematocrit 26.7 L Mean Corpuscular 91.4 Volume Mean Corpuscular 26.7 L Hemoglobin Mean Corpuscular 29.2 L Hemoglobin Concent Red Cell 16.8 H Distribution Width Mean Platelet Volume 13.4 #H Immature 0.900 H Granulocytes % Neutrophils % 78.8 H Lymphocytes % 7.6 L Monocytes % 12.5 H Eosinophils % 0.0 Basophils % 0.2 Nucleated Red Blood 0.0 Cells % Immature 0.050 H Granulocytes # Neutrophils # 4.3 Lymphocytes # 0.4 L Monocytes # 0.7 Eosinophils # 0.0 Basophils # 0.0 Nucleated Red Blood 0.0 Cells # Sodium Level 142 Potassium Level 4.7 Chloride Level 102 Carbon Dioxide Level 33 H Anion Gap 7 # Blood Urea Nitrogen 52 H Creatinine 0.90 Est Glomerular > 60 Filtrat Rate mL/min Glucose Level 554 #*H Calcium Level 8.8 Bedside Glucose 477 *H Exam/Review of Systems Exam Vitals Vital Signs Date Temp Pulse Resp B/P (MAP) Pulse Ox O2 O2 Flow FiO2 Time Delivery Rate 06/25/18 98.0 64 18 130/72 94 12:00 (91) 06/25/18 30 11:24 06/25/18 Mechanical 11:08 Ventilator Intake and Output 06/24/18 06/24/18 06/25/18 1515:00 23:00 07:00 IntakeIntake Total 850 ml 980 ml OutputOutput Total 400 ml 450 ml BalanceBalance 450 ml 530 ml Exam Constitutional: alert, frail Head: normocephalic Neck: supple, other (trach with bloody secretions) Cardiovascular: regular rate and rhythm Gastrointestinal: soft, non-tender, other (GT) Extremities: other (Bilateral BKA) Neurological: lethargic Results Results 24hrs Laboratory Tests Test 06/24/18 14:42 06/24/18 17:34 06/25/18 07:45 06/25/18 11:49 Troponin I 0.055 Platelet Count 11 #*L 25 #*L White Blood Count 5.5 Red Blood Count 2.92 L Hemoglobin 7.8 L Hematocrit 26.7 L Mean Corpuscular 91.4 Volume Mean Corpuscular 26.7 L Hemoglobin Mean Corpuscular 29.2 L Hemoglobin Concent Red Cell 16.8 H Distribution Width Mean Platelet Volume 13.4 #H Immature 0.900 H Granulocytes % Neutrophils % 78.8 H Lymphocytes % 7.6 L Monocytes % 12.5 H Eosinophils % 0.0 Basophils % 0.2 Nucleated Red Blood 0.0 Cells % Immature 0.050 H Granulocytes # Neutrophils # 4.3 Lymphocytes # 0.4 L Monocytes # 0.7 Eosinophils # 0.0 Basophils # 0.0 Nucleated Red Blood 0.0 Cells # Sodium Level 142 Potassium Level 4.7 Chloride Level 102 Carbon Dioxide Level 33 H Anion Gap 7 # Blood Urea Nitrogen 52 H Creatinine 0.90 Est Glomerular > 60 Filtrat Rate mL/min Glucose Level 554 #*H Calcium Level 8.8 Bedside Glucose 477 *H Medications Medication Current Medications IV Flush (NS 3 ml) 3 ml PER PROTOCOL IV ; Start 06/21/18 at 23:30 Ondansetron HCl (Zofran Inj) 4 mg Q6H PRN IV NAUSEA/VOMITING Last administered on 06/24/18 08:09; Admin Dose 4 MG; Start 06/21/18 at 23:30 Acetaminophen (Tylenol Tab) 650 mg Q6H PRN PO .PAIN 1-3 OR TEMP Last administered on 06/22/18 10:37; Admin Dose 650 MG; Start 06/21/18 at 23:30 Hydromorphone HCl (Dilaudid) 1 mg Q6H PRN IV SEVERE PAIN LEVEL 7-10 Last administered on 06/25/18 05:35; Admin Dose 1 MG; Start 06/22/18 at 10:00 Clonidine (Catapres) 0.1 mg Q6H PRN GTB ELEVATED BLOOD PRESSURE Last administered on 06/23/18 09:35; Admin Dose 0.1 MG; Start 06/22/18 at 10:00 Lorazepam (Ativan) 1 mg Q4 PRN IV ANXIETY Last administered on 06/25/18 02:00; Admin Dose 1 MG; Start 06/22/18 at 18:30 Pantoprazole (Protonix Iv) 40 mg DAILY@06 IV Last administered on 06/25/18 05:33; Admin Dose 40 MG; Start 06/24/18 at 06:00 Mupirocin (Bactroban) 1 applic BID TOP Last administered on 06/25/18 08:52; Admin Dose 1 APPLIC; Start 06/23/18 at 21:00; Stop 07/01/18 at 09:00 Dexamethasone (Decadron) 4 mg DAILY PO Last administered on 06/25/18 08:50; Admin Dose 4 MG; Start 06/23/18 at 15:00; Stop 06/26/18 at 09:01 Atorvastatin Calcium (Lipitor) 20 mg QHS PO Last administered on 06/24/18 21:43; Admin Dose 20 MG; Start 06/23/18 at 21:00 Hydralazine HCl (Apresoline) 50 mg Q8 PO Last administered on 06/25/18 05:35; Admin Dose 50 MG; Start 06/23/18 at 22:00 Isosorbide Dinitrate (Isordil) 10 mg TID PO Last administered on 06/25/18 08:51; Admin Dose 10 MG; Start 06/23/18 at 21:00 Metoprolol Tartrate (Lopressor) 50 mg Q8 PO Last administered on 06/25/18 05:34; Admin Dose 50 MG; Start 06/23/18 at 22:00 Hydralazine HCl (Apresoline) 10 mg Q4H PRN IV HR>110 Hold SBP<100 Last administered on 06/24/18 04:19; Admin Dose 10 MG; Start 06/23/18 at 20:00 Furosemide (Lasix) 20 mg BID DIURETICS IV Last administered on 06/25/18 05:33; Admin Dose 20 MG; Start 06/23/18 at 20:00 Metoprolol Tartrate (Lopressor) 5 mg Q4H PRN IV HR>110 Hold SBP<100; Start 06/23/18 at 20:00 Collagenase (Santyl) 1 applic DAILY TOP Last administered on 06/25/18 08:51; Admin Dose 1 APPLIC; Start 06/25/18 at 09:00 Insulin Aspart (Novolog Insulin Pen) NOVOLOG *MODERATE* ALGORITHM WITH MEALS BEDTIME SC Last administered on 06/25/18 11:59; Admin Dose 12 UNIT; Start 06/25/18 at 11:50 LIDYA DC Jun 25, 2018 14:04
--- NOTE | 2018-06-25 17:47 | CONS ---
Assessment/Plan Assessment/Plan Hospital Course (Demo Recall) IMPRESSION: 1. Congestive heart failure by chest x-ray,diastolic,acute on chronic.-EF 55% by echo thus admit, ? MS. AVR functionaing well 2. Hypertension, uncontrolled. 3. Dyslipidemia. 4. History of aortic valve replacement with a bioprosthesis in 06/2017. 5. History of coronary artery disease, status post coronary artery bypass graft surgery, receiving AHUJA to LAD in 06/2017.-neg trop x 3 6. Thrombocytopenia, severe on steroids, question idiopathic thrombocytopenic purpura. 7. Anemia. 8. Diabetes mellitus. 9. Permanent pacemaker. 10. Possible mitral stenosis by echo but did not have significantly prior. Consider reassessment by echo with improved images Recc: -tele -Continue BB/Hydralazine -Contineu lasix diuresis -Continue statin -Continue steroids and follow platelet count closely -Follow for any bleeding complications -No asa or anticoagulation Consultation Date/Type/Reason Admit Date/Time Jun 21, 2018 at 23:06 Initial Consult Date 06/23/18 Type of Consult Cardiology Reason for Consultation CHF Requesting Provider: NOE MINOR MD Date/Time of Note DATE: 06/25/18 TIME: 17:42 Exam/Review of Systems Vital Signs Vitals Vital Signs Date Temp Pulse Resp B/P (MAP) Pulse Ox O2 O2 Flow FiO2 Time Delivery Rate 06/25/18 61 16:01 06/25/18 98.2 16 131/62 94 16:00 (85) 06/25/18 Mechanical 15:06 Ventilator 06/25/18 30 11:24 Intake and Output 06/24/18 06/24/18 06/25/18 1515:00 23:00 07:00 IntakeIntake Total 850 ml 980 ml OutputOutput Total 400 ml 450 ml BalanceBalance 450 ml 530 ml Exam Exam Review of Systems: CONSTITUTIONAL: No fevers, chills. PULMONARY: trached CARDIOVASCULAR: No chest pain/palpitations GASTROINTESTINAL: No nausea/vomiting. GENITOURINARY: No hematuria/dysuria. MUSCULOSKELETAL: No myagias/arthalgias. PSYCHIATRIC: The patient denies depression. NEUROLOGIC: No weakness Constitutional: other (sleeping) Psych: no complaints Head: normocephalic Neck: other (tyrached) Respiratory: diminished breath sounds (at bases/B) Cardiovascular: regular rate and rhythm Gastrointestinal: soft, non-tender Musculoskeletal: muscle tone (normal) Extremities: edema (none) Neurological: other (No focal deficits) Labs Result Diagram: 06/25/18 0745 06/25/18 0745 Results 24hrs Laboratory Tests Test 06/25/18 07:45 06/25/18 11:49 06/25/18 17:16 White Blood Count 5.5 Red Blood Count 2.92 L Hemoglobin 7.8 L Hematocrit 26.7 L Mean Corpuscular Volume 91.4 Mean Corpuscular Hemoglobin 26.7 L Mean Corpuscular Hemoglobin Concent 29.2 L Red Cell Distribution Width 16.8 H Platelet Count 25 #*L Mean Platelet Volume 13.4 #H Immature Granulocytes % 0.900 H Neutrophils % 78.8 H Lymphocytes % 7.6 L Monocytes % 12.5 H Eosinophils % 0.0 Basophils % 0.2 Nucleated Red Blood Cells % 0.0 Immature Granulocytes # 0.050 H Neutrophils # 4.3 Lymphocytes # 0.4 L Monocytes # 0.7 Eosinophils # 0.0 Basophils # 0.0 Nucleated Red Blood Cells # 0.0 Sodium Level 142 Potassium Level 4.7 Chloride Level 102 Carbon Dioxide Level 33 H Anion Gap 7 # Blood Urea Nitrogen 52 H Creatinine 0.90 Est Glomerular Filtrat Rate mL/min > 60 Glucose Level 554 #*H Calcium Level 8.8 Bedside Glucose 477 *H 302 H Medications Medications Current Medications IV Flush (NS 3 ml) 3 ml PER PROTOCOL IV ; Start 06/21/18 at 23:30 Ondansetron HCl (Zofran Inj) 4 mg Q6H PRN IV NAUSEA/VOMITING Last administered on 06/24/18at 08:09; Admin Dose 4 MG; Start 06/21/18 at 23:30 Acetaminophen (Tylenol Tab) 650 mg Q6H PRN PO .PAIN 1-3 OR TEMP Last administered on 06/22/18at 10:37; Admin Dose 650 MG; Start 06/21/18 at 23:30 Hydromorphone HCl (Dilaudid) 1 mg Q6H PRN IV SEVERE PAIN LEVEL 7-10 Last administered on 06/25/18at 05:35; Admin Dose 1 MG; Start 06/22/18 at 10:00 Clonidine (Catapres) 0.1 mg Q6H PRN GTB ELEVATED BLOOD PRESSURE Last administered on 06/23/18 09:35; Admin Dose 0.1 MG; Start 06/22/18 at 10:00 Lorazepam (Ativan) 1 mg Q4 PRN IV ANXIETY Last administered on 06/25/18 02:00; Admin Dose 1 MG; Start 06/22/18 at 18:30 Pantoprazole (Protonix Iv) 40 mg DAILY@06 IV Last administered on 06/25/18 05:33; Admin Dose 40 MG; Start 06/24/18 at 06:00 Mupirocin (Bactroban) 1 applic BID TOP Last administered on 06/25/18 08:52; Admin Dose 1 APPLIC; Start 06/23/18 at 21:00; Stop 07/01/18 at 09:00 Dexamethasone (Decadron) 4 mg DAILY PO Last administered on 06/25/18 08:50; Admin Dose 4 MG; Start 06/23/18 at 15:00; Stop 06/26/18 at 09:01 Atorvastatin Calcium (Lipitor) 20 mg QHS PO Last administered on 06/24/18 21:43; Admin Dose 20 MG; Start 06/23/18 at 21:00 Hydralazine HCl (Apresoline) 50 mg Q8 PO Last administered on 06/25/18 14:07; Admin Dose 50 MG; Start 06/23/18 at 22:00 Isosorbide Dinitrate (Isordil) 10 mg TID PO Last administered on 06/25/18 14:07; Admin Dose 10 MG; Start 06/23/18 at 21:00 Metoprolol Tartrate (Lopressor) 50 mg Q8 PO Last administered on 06/25/18 14:07; Admin Dose 50 MG; Start 06/23/18 at 22:00 Hydralazine HCl (Apresoline) 10 mg Q4H PRN IV HR>110 Hold SBP<100 Last administered on 06/24/18 04:19; Admin Dose 10 MG; Start 06/23/18 at 20:00 Furosemide (Lasix) 20 mg BID DIURETICS IV Last administered on 06/25/18 05:33; Admin Dose 20 MG; Start 06/23/18 at 20:00 Metoprolol Tartrate (Lopressor) 5 mg Q4H PRN IV HR>110 Hold SBP<100; Start 06/23/18 at 20:00 Collagenase (Santyl) 1 applic DAILY TOP Last administered on 06/25/18at 08:51; Admin Dose 1 APPLIC; Start 06/25/18 at 09:00 Insulin Aspart (Novolog Insulin Pen) NOVOLOG *MODERATE* ALGORITHM WITH MEALS BEDTIME SC Last administered on 06/25/18at 17:22; Admin Dose 10 UNIT; Start 06/25/18 at 11:50 Miscellaneous Information 18 unit Q8 SC ; Start 06/25/18 at 14:00; Status UNV Immune Globulin ml @ 0 mls/hr ONCE IV ; Start 06/25/18 at 18:00; Stop 06/26/18 at 17:59 RODGER MIRELES Jun 25, 2018 17:47
[2018-06-25] MEDS ORDERED: IMMUNE GLOBULIN GAMMA 10 GM IV SCH (18:00)
[2018-06-25] MEDS: IMMUN GLOB G(IGG)/PRO/IGA 0-50 40 GM IV SCH (22:44)
[2018-06-25] MEDS: ATORVASTATIN 20 MG TAB PO SCH (22:53)
[2018-06-25] MEDS: INSULIN ASP PROT/ASPART (70/30) PEN SC SCH (23:21)
[2018-06-25] MEDS: Insulin NOVOLOG SS MODERATE Algorithm(NPO/TPN/ENTERAL FEEDS) SC SCH (23:22)
[2018-06-26] VITALS (30 sets, daily range): BP systolic 118–190; BP diastolic 62–90; PULSE 60–89; RESP 14–26
[2018-06-26] MEDS ORDERED: INSULIN ASPART [NOVOLOG] 3 ML PEN SC SCH
[2018-06-26] MEDS: IMMUN GLOB G(IGG)/PRO/IGA 0-50 40 GM IV SCH (00:38)
[2018-06-26] MEDS: HYDROmorphONE 1 MG/ML SYG IV PRN ×3 (02:22→21:15)
[2018-06-26] MEDS: FUROSEMIDE 20 MG INJ IV SCH ×2 (06:03→18:22)
[2018-06-26] MEDS: LORAZEPAM 2 MG INJ IV PRN (06:03)
[2018-06-26] MEDS: PANTOPRAZOLE 40 MG INJ IV SCH (06:03)
[2018-06-26] MEDS: METOPROLOL 50 MG TAB PO SCH ×3 (06:04→22:11)
[2018-06-26] MEDS: INSULIN ASP PROT/ASPART (70/30) PEN SC SCH ×3 (06:43→22:22)
[2018-06-26] MEDS: Insulin NOVOLOG SS MODERATE Algorithm(NPO/TPN/ENTERAL FEEDS) SC SCH ×3 (06:43→18:27)
[2018-06-26] MEDS: DEXAMETHASONE 4 MG TAB PO SCH (08:47)
[2018-06-26] MEDS: COLLAGENASE 5 GM (UD JAR) TOP SCH (08:47)
[2018-06-26] MEDS: ISOSORBIDE DINITRATE 10 MG TAB PO SCH ×3 (08:48→21:14)
[2018-06-26] MEDS: MUPIROCIN 2% 22 GM OINT TOP SCH ×2 (08:48→22:12)
--- NOTE | 2018-06-26 17:14 | PN ---
Date/Time of Note Date/Time of Note DATE: 06/26/18 TIME: 17:13 Assessment/Plan VTE Prophylaxis Risk score (from [facility] [place])>0 risk: 5 SCD applied (from [facility] [place]): No SCD contraindicated: bilateral amputee Pharmacological prophylaxis: NA/contraindicated Pharm contraindication: thrombocytopenia Lines/Catheters IV Catheter Type (from [facility]): Mid Line Central line still needed: Yes Urinary Cath still in place: Yes Reason Cath still needed: urinary retention Assessment/Plan Hospital Course Patient continues on ventilatory support without distress, awake alert, platelets 33, patient tolerates G-tube feeding well. Blood sugar is better controlled, will increase NPH to 20 units. Assessment/Plan -Severe thrombocytopenia, s/p platelet transfusion. Possible ITP, continue steroids, IVIG. Dr. Inman is following in hematology consultation. -Anemia, monitor H&H. -Hx of Atrial flutter. Continue metoprolol, hold Eliquis due to bleeding. -Cardiomyopathy with ejection fraction of 40% -Diabetes mellitus. Continue Lantus and NovoLog. 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 -Hx of Stage III sacral decubitus ulcer Further recommendations based on clinical course. Plan of care discussed with Dr. Villatoro. Result Diagram: 06/26/18 0725 06/26/18 0725 Results 24hrs Laboratory Tests Test 06/25/18 17:16 06/25/18 22:57 06/25/18 23:00 06/26/18 06:19 Bedside Glucose 302 H 349 H 347 H 237 H Test 06/26/18 07:25 06/26/18 11:55 06/26/18 14:09 White Blood Count 5.3 Red Blood Count 2.99 L Hemoglobin 8.0 L Hematocrit 27.5 L Mean Corpuscular 92.0 Volume Mean Corpuscular 26.8 L Hemoglobin Mean Corpuscular 29.1 L Hemoglobin Concent Red Cell 16.5 H Distribution Width Platelet Count 33 #L Mean Platelet Volume 14.0 H Immature 1.100 H Granulocytes % Neutrophils % 77.7 H Lymphocytes % 11.5 L Monocytes % 8.9 Eosinophils % 0.6 Basophils % 0.2 Nucleated Red Blood 0.0 Cells % Immature 0.060 H Granulocytes # Neutrophils # 4.1 Lymphocytes # 0.6 L Monocytes # 0.5 Eosinophils # 0.0 Basophils # 0.0 Nucleated Red Blood 0.0 Cells # Sodium Level 143 Potassium Level 4.0 Chloride Level 101 Carbon Dioxide Level 36 H Anion Gap 6 Blood Urea Nitrogen 58 H Creatinine 1.06 Est Glomerular > 60 Filtrat Rate mL/min Glucose Level 239 #H Calcium Level 8.8 Bedside Glucose 128 147 Exam/Review of Systems Exam Vitals Vital Signs Date Temp Pulse Resp B/P (MAP) Pulse Ox O2 O2 Flow FiO2 Time Delivery Rate 06/26/18 61 16:30 06/26/18 98.3 22 141/62 99 Mechanical 16:00 (88) Ventilator 06/26/18 35 05:38 Intake and Output 06/25/18 06/25/18 06/26/18 1515:00 23:00 07:00 IntakeIntake Total 850 ml 1160 ml OutputOutput Total 550 ml 900 ml BalanceBalance 300 ml 260 ml Exam Constitutional: alert, frail Head: normocephalic Neck: supple, other (trach with bloody secretions) Cardiovascular: regular rate and rhythm Gastrointestinal: soft, non-tender, other (GT) Extremities: other (Bilateral BKA) Neurological: lethargic Results Results 24hrs Laboratory Tests Test 06/25/18 17:16 06/25/18 22:57 06/25/18 23:00 06/26/18 06:19 Bedside Glucose 302 H 349 H 347 H 237 H Test 06/26/18 07:25 06/26/18 11:55 06/26/18 14:09 White Blood Count 5.3 Red Blood Count 2.99 L Hemoglobin 8.0 L Hematocrit 27.5 L Mean Corpuscular 92.0 Volume Mean Corpuscular 26.8 L Hemoglobin Mean Corpuscular 29.1 L Hemoglobin Concent Red Cell 16.5 H Distribution Width Platelet Count 33 #L Mean Platelet Volume 14.0 H Immature 1.100 H Granulocytes % Neutrophils % 77.7 H Lymphocytes % 11.5 L Monocytes % 8.9 Eosinophils % 0.6 Basophils % 0.2 Nucleated Red Blood 0.0 Cells % Immature 0.060 H Granulocytes # Neutrophils # 4.1 Lymphocytes # 0.6 L Monocytes # 0.5 Eosinophils # 0.0 Basophils # 0.0 Nucleated Red Blood 0.0 Cells # Sodium Level 143 Potassium Level 4.0 Chloride Level 101 Carbon Dioxide Level 36 H Anion Gap 6 Blood Urea Nitrogen 58 H Creatinine 1.06 Est Glomerular > 60 Filtrat Rate mL/min Glucose Level 239 #H Calcium Level 8.8 Bedside Glucose 128 147 Medications Medication Current Medications IV Flush (NS 3 ml) 3 ml PER PROTOCOL IV ; Start 06/21/18 at 23:30 Ondansetron HCl (Zofran Inj) 4 mg Q6H PRN IV NAUSEA/VOMITING Last administered on 06/24/18 08:09; Admin Dose 4 MG; Start 06/21/18 at 23:30 Acetaminophen (Tylenol Tab) 650 mg Q6H PRN PO .PAIN 1-3 OR TEMP Last administered on 06/22/18 10:37; Admin Dose 650 MG; Start 06/21/18 at 23:30 Hydromorphone HCl (Dilaudid) 1 mg Q6H PRN IV SEVERE PAIN LEVEL 7-10 Last administered on 06/26/18 10:59; Admin Dose 1 MG; Start 06/22/18 at 10:00 Clonidine (Catapres) 0.1 mg Q6H PRN GTB ELEVATED BLOOD PRESSURE Last administered on 06/26/18 02:35; Admin Dose 0.1 MG; Start 06/22/18 at 10:00 Lorazepam (Ativan) 1 mg Q4 PRN IV ANXIETY Last administered on 06/26/18 06:03; Admin Dose 1 MG; Start 06/22/18 at 18:30 Pantoprazole (Protonix Iv) 40 mg DAILY@06 IV Last administered on 06/26/18 06:03; Admin Dose 40 MG; Start 06/24/18 at 06:00 Mupirocin (Bactroban) 1 applic BID TOP Last administered on 06/26/18 08:48; Admin Dose 1 APPLIC; Start 06/23/18 at 21:00; Stop 07/01/18 at 09:00 Atorvastatin Calcium (Lipitor) 20 mg QHS PO Last administered on 06/25/18 22:53; Admin Dose 20 MG; Start 06/23/18 at 21:00 Hydralazine HCl (Apresoline) 50 mg Q8 PO Last administered on 06/26/18 14:01; Admin Dose 50 MG; Start 06/23/18 at 22:00 Isosorbide Dinitrate (Isordil) 10 mg TID PO Last administered on 06/26/18 14:00; Admin Dose 10 MG; Start 06/23/18 at 21:00 Metoprolol Tartrate (Lopressor) 50 mg Q8 PO Last administered on 06/26/18 14:01; Admin Dose 50 MG; Start 06/23/18 at 22:00 Hydralazine HCl (Apresoline) 10 mg Q4H PRN IV HR>110 Hold SBP<100 Last administered on 06/24/18 04:19; Admin Dose 10 MG; Start 06/23/18 at 20:00 Furosemide (Lasix) 20 mg BID DIURETICS IV Last administered on 06/26/18 06:03; Admin Dose 20 MG; Start 06/23/18 at 20:00 Metoprolol Tartrate (Lopressor) 5 mg Q4H PRN IV HR>110 Hold SBP<100; Start 06/23/18 at 20:00 Collagenase (Santyl) 1 applic DAILY TOP Last administered on 06/26/18 08:47; Admin Dose 1 APPLIC; Start 06/25/18 at 09:00 Insulin Aspart Prota 70%/Aspart 30% (Novolog Mix (70/ 30) Flexpen) 18 unit Q8 SC Last administered on 06/26/18 14:14; Admin Dose 18 UNIT; Start 06/25/18 at 22:00 Insulin Aspart (Novolog Insulin Pen) (Adult SC Insulin - Moder... Q6 SC Last ad ministered on 06/26/18 06:43; Admin Dose 6 UNIT; Start 06/26/18 at 00:00 LIDYA DC Jun 26, 2018 17:13
--- NOTE | 2018-06-26 18:23 | CONS ---
Assessment/Plan Assessment/Plan Hospital Course (Demo Recall) IMPRESSION: 1. Congestive heart failure by chest x-ray,diastolic,acute on chronic.-EF 55% by echo thus admit, ? MS. AVR functionaing well 2. Hypertension, uncontrolled. 3. Dyslipidemia. 4. History of aortic valve replacement with a bioprosthesis in 06/2017. 5. History of coronary artery disease, status post coronary artery bypass graft surgery, receiving AHUJA to LAD in 06/2017.-neg trop x 3 6. Thrombocytopenia, severe on steroids, question idiopathic thrombocytopenic purpura. 7. Anemia. 8. Diabetes mellitus. 9. Permanent pacemaker. 10. Possible mitral stenosis by echo but did not have significantly prior. Consider reassessment by echo with improved images Recc: -tele -Continue BB/Hydralazine -Contineu lasix diuresis and conisder further increase -Continue statin -Continue steroids and follow platelet count closely -Follow for any bleeding complications -No asa or anticoagulation Consultation Date/Type/Reason Admit Date/Time Jun 21, 2018 at 23:06 Initial Consult Date 06/23/18 Type of Consult Cardiology Reason for Consultation CHF Requesting Provider: NOE MINOR MD Date/Time of Note DATE: 06/26/18 TIME: 18:20 Exam/Review of Systems Vital Signs Vitals Vital Signs Date Temp Pulse Resp B/P (MAP) Pulse Ox O2 O2 Flow FiO2 Time Delivery Rate 06/26/18 98.9 89 18 190/73 97 Mechanical 18:19 (112) Ventilator 06/26/18 35 18:07 Intake and Output 06/25/18 06/25/18 06/26/18 1515:00 23:00 07:00 IntakeIntake Total 850 ml 1160 ml OutputOutput Total 550 ml 900 ml BalanceBalance 300 ml 260 ml Exam Exam Review of Systems: CONSTITUTIONAL: No fevers, chills. PULMONARY: trached CARDIOVASCULAR: No obvious chest pain/palpitations GASTROINTESTINAL: No nausea/vomiting. GENITOURINARY: No hematuria/dysuria. MUSCULOSKELETAL: No myagias/arthalgias. PSYCHIATRIC: The patient denies depression. NEUROLOGIC: No focal deficits Constitutional: alert Psych: no complaints Head: normocephalic ENMT: mucosa pink and moist Neck: supple, jvd (10 cm water) Respiratory: diminished breath sounds (at bases/B) Cardiovascular: regular rate and rhythm Gastrointestinal: non-tender Musculoskeletal: muscle weakness (generalized) Extremities: other (bilateral LE amputation) Neurological: other (No focal deficits) Labs Result Diagram: 06/26/1872406/26/18 0725 Results 24hrs Laboratory Tests Test 06/25/18 22:57 06/25/18 23:00 06/26/18 06:19 06/26/18 07:25 Bedside Glucose 349 H 347 H 237 H White Blood Count 5.3 Red Blood Count 2.99 L Hemoglobin 8.0 L Hematocrit 27.5 L Mean Corpuscular 92.0 Volume Mean Corpuscular 26.8 L Hemoglobin Mean Corpuscular 29.1 L Hemoglobin Concent Red Cell 16.5 H Distribution Width Platelet Count 33 #L Mean Platelet Volume 14.0 H Immature 1.100 H Granulocytes % Neutrophils % 77.7 H Lymphocytes % 11.5 L Monocytes % 8.9 Eosinophils % 0.6 Basophils % 0.2 Nucleated Red Blood 0.0 Cells % Immature 0.060 H Granulocytes # Neutrophils # 4.1 Lymphocytes # 0.6 L Monocytes # 0.5 Eosinophils # 0.0 Basophils # 0.0 Nucleated Red Blood 0.0 Cells # Sodium Level 143 Potassium Level 4.0 Chloride Level 101 Carbon Dioxide Level 36 H Anion Gap 6 Blood Urea Nitrogen 58 H Creatinine 1.06 Est Glomerular > 60 Filtrat Rate mL/min Glucose Level 239 #H Calcium Level 8.8 Test 06/26/18 11:55 06/26/18 14:09 Bedside Glucose 128 147 Medications Medications Current Medications IV Flush (NS 3 ml) 3 ml PER PROTOCOL IV ; Start 06/21/18 at 23:30 Ondansetron HCl (Zofran Inj) 4 mg Q6H PRN IV NAUSEA/VOMITING Last administered on 06/24/18at 08:09; Admin Dose 4 MG; Start 06/21/18 at 23:30 Acetaminophen (Tylenol Tab) 650 mg Q6H PRN PO .PAIN 1-3 OR TEMP Last administered on 06/22/18at 10:37; Admin Dose 650 MG; Start 06/21/18 at 23:30 Hydromorphone HCl (Dilaudid) 1 mg Q6H PRN IV SEVERE PAIN LEVEL 7-10 Last administered on 06/26/18at 10:59; Admin Dose 1 MG; Start 06/22/18 at 10:00 Clonidine (Catapres) 0.1 mg Q6H PRN GTB ELEVATED BLOOD PRESSURE Last administered on 06/26/18 02:35; Admin Dose 0.1 MG; Start 06/22/18 at 10:00 Lorazepam (Ativan) 1 mg Q4 PRN IV ANXIETY Last administered on 06/26/18 06:03; Admin Dose 1 MG; Start 06/22/18 at 18:30 Pantoprazole (Protonix Iv) 40 mg DAILY@06 IV Last administered on 06/26/18 06:03; Admin Dose 40 MG; Start 06/24/18 at 06:00 Mupirocin (Bactroban) 1 applic BID TOP Last administered on 06/26/18 08:48; Admin Dose 1 APPLIC; Start 06/23/18 at 21:00; Stop 07/01/18 at 09:00 Atorvastatin Calcium (Lipitor) 20 mg QHS PO Last administered on 06/25/18 22:53; Admin Dose 20 MG; Start 06/23/18 at 21:00 Hydralazine HCl (Apresoline) 50 mg Q8 PO Last administered on 06/26/18 14:01; Admin Dose 50 MG; Start 06/23/18 at 22:00 Isosorbide Dinitrate (Isordil) 10 mg TID PO Last administered on 06/26/18 14:00; Admin Dose 10 MG; Start 06/23/18 at 21:00 Metoprolol Tartrate (Lopressor) 50 mg Q8 PO Last administered on 06/26/18 14:01; Admin Dose 50 MG; Start 06/23/18 at 22:00 Hydralazine HCl (Apresoline) 10 mg Q4H PRN IV HR>110 Hold SBP<100 Last administered on 06/24/18 04:19; Admin Dose 10 MG; Start 06/23/18 at 20:00 Furosemide (Lasix) 20 mg BID DIURETICS IV Last administered on 06/26/18 06:03; Admin Dose 20 MG; Start 06/23/18 at 20:00 Metoprolol Tartrate (Lopressor) 5 mg Q4H PRN IV HR>110 Hold SBP<100; Start 06/23/18 at 20:00 Collagenase (Santyl) 1 applic DAILY TOP Last administered on 3/28/19at 08:47; Admin Dose 1 APPLIC; Start 06/25/18 at 09:00 Insulin Aspart Prota 70%/Aspart 30% (Novolog Mix (70/ 30) Flexpen) 18 unit Q8 SC Last administered on 06/26/18at 14:14; Admin Dose 18 UNIT; Start 06/25/18 at 22:00 Insulin Aspart (Novolog Insulin Pen) (Adult SC Insulin - Moder... Q6 SC Last administered on 06/26/18at 06:43; Admin Dose 6 UNIT; Start 06/26/18 at 00:00 RODGER MIRELES 28, 2019 18:23
[2018-06-26] MEDS: ATORVASTATIN 20 MG TAB PO SCH (21:14)
[2018-06-27] VITALS (29 sets, daily range): BP systolic 121–199; BP diastolic 59–97; PULSE 60–109; RESP 14–30
[2018-06-27] MEDS: Insulin NOVOLOG SS MODERATE Algorithm(NPO/TPN/ENTERAL FEEDS) SC SCH ×4 (01:00→17:47)
[2018-06-27] MEDS: LORAZEPAM 2 MG INJ IV PRN ×3 (01:19→23:24)
[2018-06-27] MEDS: HYDROmorphONE 1 MG/ML SYG IV PRN ×3 (03:52→17:41)
[2018-06-27] MEDS: FUROSEMIDE 20 MG INJ IV SCH ×2 (06:16→17:44)
[2018-06-27] MEDS: METOPROLOL 50 MG TAB PO SCH ×3 (06:16→21:57)
[2018-06-27] MEDS: INSULIN ASP PROT/ASPART (70/30) PEN SC SCH ×3 (06:31→22:24)
[2018-06-27] MEDS: PANTOPRAZOLE 40 MG INJ IV SCH (06:38)
[2018-06-27] MEDS: ISOSORBIDE DINITRATE 10 MG TAB PO SCH ×3 (08:46→21:54)
[2018-06-27] MEDS: MUPIROCIN 2% 22 GM OINT TOP SCH ×2 (08:46→21:56)
[2018-06-27] MEDS: COLLAGENASE 5 GM (UD JAR) TOP SCH (08:47)
--- NOTE | 2018-06-27 15:27 | CONS ---
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, plt count increasing, at 69K today -not in DIC, fibrinogen not low -he had a bone marrow biopsy during a prior admission which showed enlarged plt and was possibly suggestive of peripheral destruction of platelets -he has + TERESE -has h/o negative HIT ab cont dexamethasone 40 mg daily x 4 days then transition to 1 mg/kg daily (today) with slow taper (by 10 mg weekly) IVIG 1 gm /kg daily x 2 days, completed 06/25/18 -if does not have appropriate response to above therapy may need to consider re biopsy of bone marrow or if plt count drops again -transfuse to keep plt > 5K check CBC q 8h keep hgb >7 Consultation Date/Type/Reason Admit Date/Time Jun 21, 2018 at 23:06 Initial Consult Date Requesting Provider: NOE MINOR MD Date/Time of Note DATE: 06/27/18 TIME: 15:26 24 HR Interval Summary Free Text/Dictation plt count much improved no plt transfusion in several days Exam/Review of Systems Exam Vitals Vital Signs Date Temp Pulse Resp B/P (MAP) Pulse Ox O2 O2 Flow FiO2 Time Delivery Rate 06/27/18 98.2 88 18 163/69 96 14:09 (100) 06/27/18 30 13:00 06/26/18 Mechanical 18:19 Ventilator Intake and Output 06/26/18 06/26/18 06/27/18 1515:00 23:00 07:00 IntakeIntake Total 850 ml 850 ml OutputOutput Total 500 ml 1200 ml BalanceBalance 350 ml -350 ml Constitutional: frail Psych: confusion, depression Neck: other (trach in place) Results Result Diagram: 06/27/18 0627 06/27/18 0627 Results 24hrs Laboratory Tests Test 06/26/18 18:20 06/26/18 22:07 06/27/18 00:36 06/27/18 05:41 Bedside Glucose 262 H 238 H 230 H Lab Scanned BLOOD TRANSFUSIO Report N Test 06/27/18 06:11 06/27/18 06:27 06/27/18 12:19 06/27/18 14:24 Bedside Glucose 199 122 148 White Blood Count 8.7 # Red Blood Count 3.75 #L Hemoglobin 10.0 #L Hematocrit 34.1 #L Mean Corpuscular 90.9 Volume Mean Corpuscular 26.7 L Hemoglobin Mean Corpuscular 29.3 L Hemoglobin Concen t Red Cell 17.0 H Distribution Width Platelet Count 69 #L Mean Platelet 12.4 H Volume Immature 1.700 H Granulocytes % Neutrophils % 71.5 Lymphocytes % 18.1 Monocytes % 8.2 Eosinophils % 0.3 Basophils % 0.2 Nucleated Red 0.8 H Blood Cells % Immature 0.150 H Granulocytes # Neutrophils # 6.2 Lymphocytes # 1.6 Monocytes # 0.7 Eosinophils # 0.0 Basophils # 0.0 Nucleated Red 0.1 H Blood Cells # Sodium Level 146 H Potassium Level 4.4 Chloride Level 96 L Carbon Dioxide 42 *H Level Anion Gap 8 Blood Urea 62 H Nitrogen Creatinine 0.74 Est Glomerular > 60 Filtrat Rate mL/min Glucose Level 189 Calcium Level 9.3 Medications Medication Current Medications IV Flush (NS 3 ml) 3 ml PER PROTOCOL IV ; Start 06/21/18 at 23:30 Ondansetron HCl (Zofran Inj) 4 mg Q6H PRN IV NAUSEA/VOMITING Last administered on 06/24/18 08:09; Admin Dose 4 MG; Start 06/21/18 at 23:30 Acetaminophen (Tylenol Tab) 650 mg Q6H PRN PO .PAIN 1-3 OR TEMP Last administered on 06/22/18 10:37; Admin Dose 650 MG; Start 06/21/18 at 23:30 Hydromorphone HCl (Dilaudid) 1 mg Q6H PRN IV SEVERE PAIN LEVEL 7-10 Last administered on 06/27/18 11:18; Admin Dose 1 MG; Start 06/22/18 at 10:00 Clonidine (Catapres) 0.1 mg Q6H PRN GTB ELEVATED BLOOD PRESSURE Last administered on 06/26/18 02:35; Admin Dose 0.1 MG; Start 06/22/18 at 10:00 Lorazepam (Ativan) 1 mg Q4 PRN IV ANXIETY Last administered on 06/27/18 08:49; Admin Dose 1 MG; Start 06/22/18 at 18:30 Pantoprazole (Protonix Iv) 40 mg DAILY@06 IV Last administered on 06/27/18 06:38; Admin Dose 40 MG; Start 06/24/18 at 06:00 Mupirocin (Bactroban) 1 applic BID TOP Last administered on 06/27/18 08:46; Admin Dose 1 APPLIC; Start 06/23/18 at 21:00; Stop 07/01/18 at 09:00 Atorvastatin Calcium (Lipitor) 20 mg QHS PO Last administered on 06/26/18 21:14; Admin Dose 20 MG; Start 06/23/18 at 21:00 Hydralazine HCl (Apresoline) 50 mg Q8 PO Last administered on 06/27/18 14:21; Admin Dose 50 MG; Start 06/23/18 at 22:00 Isosorbide Dinitrate (Isordil) 10 mg TID PO Last administered on 06/27/18 14:22; Admin Dose 10 MG; Start 06/23/18 at 21:00 Metoprolol Tartrate (Lopressor) 50 mg Q8 PO Last administered on 06/27/18 14:22; Admin Dose 50 MG; Start 06/23/18 at 22:00 Hydralazine HCl (Apresoline) 10 mg Q4H PRN IV HR>110 Hold SBP<100 Last administered on 06/24/18 04:19; Admin Dose 10 MG; Start 06/23/18 at 20:00 Furosemide (Lasix) 20 mg BID DIURETICS IV Last administered on 06/27/18 06:16; Admin Dose 20 MG; Start 06/23/18 at 20:00 Metoprolol Tartrate (Lopressor) 5 mg Q4H PRN IV HR>110 Hold SBP<100; Start 06/23/18 at 20:00 Collagenase (Santyl) 1 applic DAILY TOP Last administered on 06/27/18 08:47; Admin Dose 1 APPLIC; Start 06/25/18 at 09:00 Insulin Aspart (Novolog Insulin Pen) (Adult SC Insulin - Moder... Q6 SC Last administered on 06/27/18 06:32; Admin Dose 4 UNIT; Start 06/26/18 at 00:00 Insulin Aspart Prota 70%/Aspart 30% (Novolog Mix (70/ 30) Flexpen) 20 unit Q8 SC Last administered on 06/27/18 14:32; Admin Dose 20 UNIT; Start 06/26/18 at 22:00 BART MONTOYA Jun 27, 2018 15:27
--- NOTE | 2018-06-27 15:31 | CONS ---
Assessment/Plan Assessment/Plan Hospital Course (Demo Recall) IMPRESSION: 1. Congestive heart failure by chest x-ray,diastolic,acute on chronic.-EF 55% by echo thus admit, ? MS. AVR functionaing well 2. Hypertension, uncontrolled. 3. Dyslipidemia. 4. History of aortic valve replacement with a bioprosthesis in 06/2017. 5. History of coronary artery disease, status post coronary artery bypass graft surgery, receiving AHUJA to LAD in 06/2017.-neg trop x 3 6. Thrombocytopenia, severe on steroids, question idiopathic thrombocytopenic purpura. 7. Anemia. 8. Diabetes mellitus. 9. Permanent pacemaker. 10. Possible mitral stenosis by echo but did not have significantly prior. Consider reassessment by echo with improved images Recc: -tele -Continue BB/Hydralazine with slight increase -Contineu lasix diuresis and consider further increase -Continue statin -Continue steroids and follow platelet count closely -Follow for any bleeding complications -No asa or anticoagulation Consultation Date/Type/Reason Admit Date/Time Jun 21, 2018 at 23:06 Initial Consult Date 06/23/18 Type of Consult Cardiology Reason for Consultation CHF Requesting Provider: NOE MINOR MD Date/Time of Note DATE: 06/27/18 TIME: 15:28 Exam/Review of Systems Vital Signs Vitals Vital Signs Date Temp Pulse Resp B/P (MAP) Pulse Ox O2 O2 Flow FiO2 Time Delivery Rate 06/27/18 98.2 88 18 163/69 96 14:09 (100) 06/27/18 30 13:00 06/26/18 Mechanical 18:19 Ventilator Intake and Output 06/26/18 06/26/18 06/27/18 1515:00 23:00 07:00 IntakeIntake Total 850 ml 850 ml OutputOutput Total 500 ml 1200 ml BalanceBalance 350 ml -350 ml Exam Exam Review of Systems: CONSTITUTIONAL: No fevers, chills. PULMONARY: No sob CARDIOVASCULAR: No chest pain/palpitations GASTROINTESTINAL: No nausea/vomiting. GENITOURINARY: No hematuria/dysuria. MUSCULOSKELETAL: No myagias/arthalgias. PSYCHIATRIC: The patient denies depression. NEUROLOGIC: No weakness Constitutional: alert Psych: no complaints Head: normocephalic ENMT: mucosa pink and moist Neck: supple, jvd (9 cm water) Respiratory: diminished breath sounds Cardiovascular: regular rate and rhythm Gastrointestinal: soft, non-tender Musculoskeletal: muscle tone (normal) Extremities: edema (none) Neurological: other (no focal deficits) Labs Result Diagram: 06/27/1862606/27/18626 Results 24hrs Laboratory Tests Test 06/26/18 18:20 06/26/18 22:07 06/27/18 00:36 06/27/18 05:41 Bedside Glucose 262 H 238 H 230 H Lab Scanned BLOOD TRANSFUSIO Report N Test 06/27/18 06:11 06/27/18 06:27 06/27/18 12:19 06/27/18 14:24 Bedside Glucose 199 122 148 White Blood Count 8.7 # Red Blood Count 3.75 #L Hemoglobin 10.0 #L Hematocrit 34.1 #L Mean Corpuscular 90.9 Volume Mean Corpuscular 26.7 L Hemoglobin Mean Corpuscular 29.3 L Hemoglobin Concen t Red Cell 17.0 H Distribution Width Platelet Count 69 #L Mean Platelet 12.4 H Volume Immature 1.700 H Granulocytes % Neutrophils % 71.5 Lymphocytes % 18.1 Monocytes % 8.2 Eosinophils % 0.3 Basophils % 0.2 Nucleated Red 0.8 H Blood Cells % Immature 0.150 H Granulocytes # Neutrophils # 6.2 Lymphocytes # 1.6 Monocytes # 0.7 Eosinophils # 0.0 Basophils # 0.0 Nucleated Red 0.1 H Blood Cells # Sodium Level 146 H Potassium Level 4.4 Chloride Level 96 L Carbon Dioxide 42 *H Level Anion Gap 8 Blood Urea 62 H Nitrogen Creatinine 0.74 Est Glomerular > 60 Filtrat Rate mL/min Glucose Level 189 Calcium Level 9.3 Medications Medications Current Medications IV Flush (NS 3 ml) 3 ml PER PROTOCOL IV ; Start 06/21/18 at 23:30 Ondansetron HCl (Zofran Inj) 4 mg Q6H PRN IV NAUSEA/VOMITING Last administered on 06/24/18at 08:09; Admin Dose 4 MG; Start 06/21/18 at 23:30 Acetaminophen (Tylenol Tab) 650 mg Q6H PRN PO .PAIN 1-3 OR TEMP Last administered on 06/22/18at 10:37; Admin Dose 650 MG; Start 06/21/18 at 23:30 Hydromorphone HCl (Dilaudid) 1 mg Q6H PRN IV SEVERE PAIN LEVEL 7-10 Last administered on 06/27/18 11:18; Admin Dose 1 MG; Start 06/22/18 at 10:00 Clonidine (Catapres) 0.1 mg Q6H PRN GTB ELEVATED BLOOD PRESSURE Last administered on 06/26/18 02:35; Admin Dose 0.1 MG; Start 06/22/18 at 10:00 Lorazepam (Ativan) 1 mg Q4 PRN IV ANXIETY Last administered on 06/27/18 08:49; Admin Dose 1 MG; Start 06/22/18 at 18:30 Pantoprazole (Protonix Iv) 40 mg DAILY@06 IV Last administered on 06/27/18 06:38; Admin Dose 40 MG; Start 06/24/18 at 06:00 Mupirocin (Bactroban) 1 applic BID TOP Last administered on 06/27/18 08:46; Admin Dose 1 APPLIC; Start 06/23/18 at 21:00; Stop 07/01/18 at 09:00 Atorvastatin Calcium (Lipitor) 20 mg QHS PO Last administered on 06/26/18 21:14; Admin Dose 20 MG; Start 06/23/18 at 21:00 Hydralazine HCl (Apresoline) 50 mg Q8 PO Last administered on 06/27/18 14:21; Admin Dose 50 MG; Start 06/23/18 at 22:00 Isosorbide Dinitrate (Isordil) 10 mg TID PO Last administered on 06/27/18 14:22; Admin Dose 10 MG; Start 06/23/18 at 21:00 Metoprolol Tartrate (Lopressor) 50 mg Q8 PO Last administered on 06/27/18 14:22; Admin Dose 50 MG; Start 06/23/18 at 22:00 Hydralazine HCl (Apresoline) 10 mg Q4H PRN IV HR>110 Hold SBP<100 Last administered on 06/24/18 04:19; Admin Dose 10 MG; Start 06/23/18 at 20:00 Furosemide (Lasix) 20 mg BID DIURETICS IV Last administered on 06/27/18 06:16; Admin Dose 20 MG; Start 06/23/18 at 20:00 Metoprolol Tartrate (Lopressor) 5 mg Q4H PRN IV HR>110 Hold SBP<100; Start 06/23/18 at 20:00 Collagenase (Santyl) 1 applic DAILY TOP Last administered on 06/27/18at 08:47; Admin Dose 1 APPLIC; Start 06/25/18 at 09:00 Insulin Aspart (Novolog Insulin Pen) (Adult SC Insulin - Moder... Q6 SC Last administered on 06/27/18at 06:32; Admin Dose 4 UNIT; Start 06/26/18 at 00:00 Insulin Aspart Prota 70%/Aspart 30% (Novolog Mix (70/ 30) Flexpen) 20 unit Q8 SC Last administered on 06/27/18at 14:32; Admin Dose 20 UNIT; Start 06/26/18 at 22:00 RODGER MIRELES Jun 27, 2018 15:31
--- NOTE | 2018-06-27 16:24 | PDOCDIS ---
Discharge Instructions CONDITION [id number] Patient Condition: [id number] Stable HOME CARE INSTRUCTIONS: [id number] Diet Instructions: [id number] ACTIVITY: [id number] Activity Restrictions: [id number] Slowly Increase Activity Rest between Activity Avoid heavy lifting Do not Drive Do not operate Machinery Do not operate Power Tool Avoid Heavy Housework [id number] Bathing Restrictions: Uubic9m Sponge Bath FOLLOW UP/APPOINTMENTS Follow-up Plan - fu with Primary MD x 1 week - call 911 or go to the nearest hospital if symptoms get worse Plan dw dr Villatoro/staff LES TRENT Jun 27, 2018 16:24
--- NOTE | 2018-06-27 16:32 | DS ---
Date/Time of Note Date/Time of Note DATE: 06/27/18 TIME: 16:26 Discharge Summary Admission/Discharge Info Admit Date/Time Jun 21, 2018 at 23:06 Discharge Date/Time Discharge Diagnosis -Severe thrombocytopenia, s/p platelet transfusion. Possible ITP, continue s teroids, IVIG. Dr. Inman is following in hematology consultation. -Anemia, monitor H&H. -Hx of Atrial flutter. Continue metoprolol, hold Eliquis due to bleeding. -Cardiomyopathy with ejection fraction of 40% -Diabetes mellitus. Continue Lantus and NovoLog. 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 -Hx of Stage III sacral decubitus ulcer Further recommendations based on clinical course. Plan of care discussed with Dr. Villatoro. Patient Condition: Stable Hospital Course Patient is a 68 years old male with coronary artery disease, respiratory failure with trach was transferred from SNF for abnormal labs and tracheal bleeding. Patient was found to have severely low platelets and so was transferred for treatment and further evaluation of thrombocytopenia. [facility] transfer when bed is available.dURING ASSESSMENT- nad, denies any chest pain; shortness of bteath. seems comfortable on supplemental oxygen. Constitutional: nad afebrile, alert, frail Head: normocephalic Neck: supple, other (trach with bloody secretions) Cardiovascular: regular rate and rhythm Gastrointestinal: soft, non-tender, other (GT) Extremities: other (Bilateral BKA) Neurological: alert, responsive. Transfer patient to [facility] when bed is available. Cristino Villatoro Home Meds Reported Medications Tramadol HCl (Tramadol HCl) 50 Mg Tablet, 50 MG PO Q6H PRN for PAIN LEVEL 7-10, #120 TAB 06/23/18 Hydralazine Hcl* (Hydralazine Hcl*) 50 Mg Tab, 50 MG PO Q8 for hypertension, #90 TAB 06/23/18 Gabapentin* (Neurontin*) 400 Mg Capsule, 400 MG PO Q8, #90 CAP 06/23/18 Insulin Isophan/Regular (Humulin 70/30) 100 Units/Ml Susp, 18 UNIT SC Q8, EA 06/23/18 Omeprazole* (Omeprazole*) 40 Mg Capsule.dr, 40 MG PO DAILY, #30 CAP 06/23/18 Metoprolol Tartrate* (Lopressor*) 50 Mg Tab, 50 MG PO Q8, #60 TAB 06/23/18 Atorvastatin Calcium* (Atorvastatin Calcium*) 20 Mg Tablet, 20 MG PO QHS, #30 TAB 06/23/18 Ondansetron Hcl* (Ondansetron Hcl*) 4 Mg Tablet, 4 MG PO Q4H PRN for NAUSEA AND OR VOMITING, TAB 11/11/17 Budesonide-Formoterol Fumarate* (Symbicort*) 160-4.5 Hfa.aer.ad, 1 PUFF INHALATION BID, #1 EACH 11/11/17 Sennosides* (Senna Lax*) 8.6 Mg Tablet, 1 TAB PO BID, TAB 11/11/17 Multivitamins* (Theragran*) 1 Tab Tab, 1 TAB PO DAILY, TAB 11/11/17 Isosorbide Dinitrate* (Isosorbide Dinitrate*) 10 Mg Tablet, 10 MG PO TID, TAB 11/11/17 Ascorbic Acid* (Vitamin C*) 500 Mg Capsule.sa, 500 MG PO DAILY, CAP 11/11/17 Pantoprazole* (Protonix*) 40 Mg Tablet.dr, 40 MG PO AC BREAKFAST, TAB 08/07/17 Apixaban* (Eliquis*) 5 Mg Tablet, 5 MG PO BID, TAB 08/07/17 Nitroglycerin* (Nitrostat*) 0.4 Mg Tab.subl, 0.4 MG SL Q5MIN PRN for CHEST PAIN, BOTTLE 05/19/17 Duloxetine Hcl* (Cymbalta*) 30 Mg Capsule.dr, 30 MG PO DAILY, CAP 05/19/17 Acetaminophen* (Acetaminophen*) 650 Mg Tablet, 650 MG PO Q6H PRN for MILD TO MODERATE PAIN, #30 TAB 03/18/17 Alprazolam* (Alprazolam*) 0.25 Mg Tablet, 0.25 MG PO TID PRN for ANXIETY, TAB 03/18/17 Ferrous Sulfate* (Ferrous Sulfate*) 325 Mg Tabec, 325 MG PO DAILY, TAB 03/18/17 Follow-up Plan - fu with Primary x 1 week - call 911 or go to the nearest hospital if symptoms get worse Plan cristino Villatoro/staff Primary Care Provider Roberto Villatoro MD Time spent on discharge: < 30 minutes Pending Labs Laboratory Tests Test 06/26/18 18:20 06/26/18 22:07 06/27/18 00:36 06/27/18 05:41 Bedside 262 238 230 Glucose mg/dL (70-220) mg/dL (70-220) mg/dL (70-220) Lab Scanned BLOOD TRANSFUS Report ION Test 06/27/18 06:11 06/27/18 06:27 06/27/18 12:19 06/27/18 14:24 Bedside 199 122 148 Glucose mg/dL (70-220) mg/dL (70-220) mg/dL (70-220) White Blood 8.7 Count 10^3/ul (4.8-1 0.8) Red Blood 3.75 Count 10^6/ul (4.70- 6.10) Hemoglobin 10.0 g/dl (14.0-18. 0) Hematocrit 34.1 % (42.0-52.0) Mean 90.9 Corpuscular fl (82.0-101.0 Volume ) Mean 26.7 Corpuscular pg (29.0-33.0) Hemoglobin Mean 29.3 Corpuscular g/dl (32.0-37. Hemoglobin Conc 0) ent Red Cell 17.0 Distribution % (11.5-14.5) Width Platelet Count 69 10^3/UL (140-4 15) Mean Platelet 12.4 Volume fl (7.4-10.4) Immature 1.700 Granulocytes % % (0.001-0.429 ) Neutrophils % 71.5 % (39.0-77.0) Lymphocytes % 18.1 % (15.0-51.0) Monocytes % 8.2 % (0.0-11.0) Eosinophils % 0.3 % (0.0-7.0) Basophils % 0.2 % (0.0-2.0) Nucleated Red 0.8 Blood Cells % /100WBC (0.0-0 .0) Immature 0.150 Granulocytes # 10^3/ul (0.0-0 .031) Neutrophils # 6.2 10^3/ul (1.6-7 .5) Lymphocytes # 1.6 10^3/ul (0.8-2 .9) Monocytes # 0.7 10^3/ul (0.3-0 .9) Eosinophils # 0.0 10^3/ul (0.0-0 .5) Basophils # 0.0 10^3/ul (0.0-0 .1) Nucleated Red 0.1 Blood Cells # 10^3/ul (0.0-0 .0) Sodium Level 146 mmol/L (135-14 4) Potassium 4.4 Level mmol/L (3.5-5. 1) Chloride Level 96 mmol/L (97-110 ) Carbon Dioxide 42 Level mmol/L (21-31) Anion Gap 8 (5-13) Blood Urea 62 Nitrogen mg/dl (7-20) Creatinine 0.74 mg/dl (0.61-1. 24) Est Glomerular > 60 Filtrat mL/min (>60) Rate mL/min Glucose Level 189 mg/dl (70-220) Calcium Level 9.3 mg/dl (8.4-10. 2) LES TRENT Jun 27, 2018 16:32
[2018-06-27] MEDS: ATORVASTATIN 20 MG TAB PO SCH (21:54)
[2018-06-28] VITALS (19 sets, daily range): BP systolic 84–169; BP diastolic 43–84; PULSE 60–82; RESP 14–28
[2018-06-28] MEDS: HYDROmorphONE 1 MG/ML SYG IV PRN ×2 (00:46→14:27)
[2018-06-28] MEDS: Insulin NOVOLOG SS MODERATE Algorithm(NPO/TPN/ENTERAL FEEDS) SC SCH ×3 (06:00→12:03)
[2018-06-28] MEDS: PANTOPRAZOLE 40 MG INJ IV SCH (06:09)
[2018-06-28] MEDS: METOPROLOL 50 MG TAB PO SCH ×2 (06:10→13:23)
[2018-06-28] MEDS: FUROSEMIDE 20 MG INJ IV SCH (06:11)
[2018-06-28] MEDS: INSULIN ASP PROT/ASPART (70/30) PEN SC SCH ×2 (06:29→13:46)
[2018-06-28] MEDS: LORAZEPAM 2 MG INJ IV PRN ×2 (08:53→13:23)
[2018-06-28] MEDS: ISOSORBIDE DINITRATE 10 MG TAB PO SCH ×2 (08:53→13:21)
[2018-06-28] MEDS ORDERED: predniSONE 50 MG TAB PO SCH (09:00)
[2018-06-28] MEDS: COLLAGENASE 5 GM (UD JAR) TOP SCH (09:00)
[2018-06-28] MEDS: MUPIROCIN 2% 22 GM OINT TOP SCH (09:07)
--- NOTE | 2018-06-28 12:16 | CONS ---
Consult Date/Type/Reason Admit Date/Time Jun 21, 2018 at 23:06 Initial Consult Date Requesting Provider: NOE MINOR MD Date/Time of Note DATE: 06/28/18 TIME: 12:14 Subjective NO acute events - pt comfortable - rate controlled now. Stable urine output. ROS: No fever, no chills, no nausea, no vomiting, no diarrhea/constipation - + SOB per nurse Objective Vitals Vital Signs Date Temp Pulse Resp B/P (MAP) Pulse Ox O2 O2 Flow FiO2 Time Delivery Rate 06/28/18 98.9 62 16 102/44 99 10:00 (63) 06/28/18 40 05:00 06/26/18 Mechanical 18:19 Ventilator Intake and Output 06/27/18 06/27/18 06/28/18 1414:59 22:59 06:59 IntakeIntake Total 850 ml 650 ml OutputOutput Total 1300 ml 2100 ml BalanceBalance -450 ml -1450 ml Exam General: WN/WD/NAD, AOx comfortable, agitated when awake HEENT: Unicetric/atraumatic/EOMI (does not follow commands) NECK: trach Lymph: no lymphadenopathy HEART: irregular with no S3, II/ systolic murmur at apex, pacer LUNGS: Coarse sounds ABD: soft, NT, ND, +BS : Intact Neuro: non focal SKIN: chronic changes EXT: trace edema Results/Medications Result Diagram: 06/28/18 0615 06/28/18 0615 Results 24 hrs Laboratory Tests Test 06/27/18 12:19 06/27/18 14:24 06/27/18 17:46 06/27/18 22:15 Bedside Glucose 122 148 74 192 Test 06/28/18 00:46 06/28/18 06:15 06/28/18 12:00 Bedside Glucose 138 147 163 White Blood Count 11.5 #H Red Blood Count 3.98 L Hemoglobin 10.7 L Hematocrit 35.6 L Mean Corpuscular 89.4 Volume Mean Corpuscular 26.9 L Hemoglobin Mean Corpuscular 30.1 L Hemoglobin Concent Red Cell 17.6 H Distribution Width Platelet Count 64 L Mean Platelet Volume 12.1 H Immature 1.400 H Granulocytes % Neutrophils % 78.1 H Lymphocytes % 12.5 L Monocytes % 6.4 Eosinophils % 1.3 Basophils % 0.3 Nucleated Red Blood 0.4 H Cells % Immature 0.160 H Granulocytes # Neutrophils # 9.0 H Lymphocytes # 1.4 Monocytes # 0.7 Eosinophils # 0.2 Basophils # 0.0 Nucleated Red Blood 0.1 H Cells # Sodium Level 143 Potassium Level 4.3 Chloride Level 98 Carbon Dioxide Level 39 H Anion Gap 6 Blood Urea Nitrogen 52 H Creatinine 0.65 Est Glomerular > 60 Filtrat Rate mL/min Glucose Level 159 Calcium Level 9.1 Home Meds Reported Medications Tramadol HCl (Tramadol HCl) 50 Mg Tablet, 50 MG PO Q6H PRN for PAIN LEVEL 7-10, #120 TAB 06/23/18 Hydralazine Hcl* (Hydralazine Hcl*) 50 Mg Tab, 50 MG PO Q8 for hypertension, #90 TAB 06/23/18 Gabapentin* (Neurontin*) 400 Mg Capsule, 400 MG PO Q8, #90 CAP 06/23/18 Insulin Isophan/Regular (Humulin 70/30) 100 Units/Ml Susp, 18 UNIT SC Q8, EA 06/23/18 Omeprazole* (Omeprazole*) 40 Mg Capsule.dr, 40 MG PO DAILY, #30 CAP 06/23/18 Metoprolol Tartrate* (Lopressor*) 50 Mg Tab, 50 MG PO Q8, #60 TAB 06/23/18 Atorvastatin Calcium* (Atorvastatin Calcium*) 20 Mg Tablet, 20 MG PO QHS, #30 TAB 06/23/18 Ondansetron Hcl* (Ondansetron Hcl*) 4 Mg Tablet, 4 MG PO Q4H PRN for NAUSEA AND OR VOMITING, TAB 11/11/17 Budesonide-Formoterol Fumarate* (Symbicort*) 160-4.5 Hfa.aer.ad, 1 PUFF INHALATION BID, #1 EACH 11/11/17 Sennosides* (Senna Lax*) 8.6 Mg Tablet, 1 TAB PO BID, TAB 11/11/17 Multivitamins* (Theragran*) 1 Tab Tab, 1 TAB PO DAILY, TAB 11/11/17 Isosorbide Dinitrate* (Isosorbide Dinitrate*) 10 Mg Tablet, 10 MG PO TID, TAB 11/11/17 Ascorbic Acid* (Vitamin C*) 500 Mg Capsule.sa, 500 MG PO DAILY, CAP 11/11/17 Pantoprazole* (Protonix*) 40 Mg Tablet.dr, 40 MG PO AC BREAKFAST, TAB 08/07/17 Apixaban* (Eliquis*) 5 Mg Tablet, 5 MG PO BID, TAB 08/07/17 Nitroglycerin* (Nitrostat*) 0.4 Mg Tab.subl, 0.4 MG SL Q5MIN PRN for CHEST PAIN, BOTTLE 05/19/17 Duloxetine Hcl* (Cymbalta*) 30 Mg Capsule.dr, 30 MG PO DAILY, CAP 05/19/17 Acetaminophen* (Acetaminophen*) 650 Mg Tablet, 650 MG PO Q6H PRN for MILD TO MODERATE PAIN, #30 TAB 03/18/17 Alprazolam* (Alprazolam*) 0.25 Mg Tablet, 0.25 MG PO TID PRN for ANXIETY, TAB 03/18/17 Ferrous Sulfate* (Ferrous Sulfate*) 325 Mg Tabec, 325 MG PO DAILY, TAB 03/18/17 Medications Current Medications IV Flush (NS 3 ml) 3 ml PER PROTOCOL IV ; Start 06/21/18 at 23:30 Ondansetron HCl (Zofran Inj) 4 mg Q6H PRN IV NAUSEA/VOMITING Last administered on 06/24/18 08:09; Admin Dose 4 MG; Start 06/21/18 at 23:30 Acetaminophen (Tylenol Tab) 650 mg Q6H PRN PO .PAIN 1-3 OR TEMP Last administered on 06/22/18 10:37; Admin Dose 650 MG; Start 06/21/18 at 23:30 Hydromorphone HCl (Dilaudid) 1 mg Q6H PRN IV SEVERE PAIN LEVEL 7-10 Last administered on 06/28/18 00:46; Admin Dose 1 MG; Start 06/22/18 at 10:00 Clonidine (Catapres) 0.1 mg Q6H PRN GTB ELEVATED BLOOD PRESSURE Last administered on 06/26/18 02:35; Admin Dose 0.1 MG; Start 06/22/18 at 10:00 Lorazepam (Ativan) 1 mg Q4 PRN IV ANXIETY Last administered on 06/28/18 08:53; Admin Dose 1 MG; Start 06/22/18 at 18:30 Pantoprazole (Protonix Iv) 40 mg DAILY@06 IV Last administered on 06/28/18 06:09; Admin Dose 40 MG; Start 06/24/18 at 06:00 Mupirocin (Bactroban) 1 applic BID TOP Last administered on 06/28/18 09:07; Admin Dose 1 APPLIC; Start 06/23/18 at 21:00; Stop 07/01/18 at 09:00 Atorvastatin Calcium (Lipitor) 20 mg QHS PO Last administered on 06/27/18 21:54; Admin Dose 20 MG; Start 06/23/18 at 21:00 Isosorbide Dinitrate (Isordil) 10 mg TID PO Last administered on 06/28/18 08:53; Admin Dose 10 MG; Start 06/23/18 at 21:00 Metoprolol Tartrate (Lopressor) 50 mg Q8 PO Last administered on 06/28/18 06:10; Admin Dose 50 MG; Start 06/23/18 at 22:00 Hydralazine HCl (Apresoline) 10 mg Q4H PRN IV HR>110 Hold SBP<100 Last administered on 06/24/18 04:19; Admin Dose 10 MG; Start 06/23/18 at 20:00 Furosemide (Lasix) 20 mg BID DIURETICS IV Last administered on 06/28/18 06:11; Admin Dose 20 MG; Start 06/23/18 at 20:00 Metoprolol Tartrate (Lopressor) 5 mg Q4H PRN IV HR>110 Hold SBP<100; Start 06/23/18 at 20:00 Collagenase (Santyl) 1 applic DAILY TOP Last administered on 06/27/18 08:47; Admin Dose 1 APPLIC; Start 06/25/18 at 09:00 Insulin Aspart (Novolog Insulin Pen) (Adult SC Insulin - Moder... Q6 SC Last administered on 06/28/18 12:03; Admin Dose 2 UNIT; Start 06/26/18 at 00:00 Insulin Aspart Prota 70%/Aspart 30% (Novolog Mix (70/ 30) Flexpen) 20 unit Q8 SC Last administered on 06/28/18 06:29; Admin Dose 20 UNIT; Start 06/26/18 at 22:00 Prednisone (Prednisone) 50 mg DAILY PO Last administered on 06/28/18 08:53; Admin Dose 50 MG; Start 3/30/19 at 09:00 Hydralazine HCl (Apresoline) 75 mg Q8 PO Last administered on 06/28/18at 06:10; Admin Dose 75 MG; Start 06/27/18 at 22:00 Assessment/Plan Hospital Course (Demo Recall) 1. Congestive heart failure by chest x-ray, question systolic versus diastolic, could be diastolic by most recent echo in 07/2017, acute on chronic - con't gentle diuresis. Better fluid satus now. 2. Hypertension, uncontrolled - with agitation - con't med rx. Improved with Rx. 3. Dyslipidemia. 4. History of aortic valve replacement with a bioprosthesis in 06/2017. Stable by exam. 5. History of coronary artery disease, status post coronary artery bypass graft surgery, receiving AHUJA to LAD in 06/2017. NO CP now - on meds. 6. Thrombocytopenia, severe on steroids, question idiopathic thrombocytopenic purpura. 7. Anemia H/H 10.7 stable, 8. Diabetes mellitus 9. Permanent pacemaker- no evidence of malfunction now. REGINA TOMAS MD Jun 28, 2018 12:16
--- NOTE | 2018-06-28 15:39 | CONS ---
[facility] HCIS Consult Follow-up Patient Name: Omer Erazo Unit Number: [id number] Date of : 1950 Patient Status: Discharged Inpatient Attending Doctor: Liberty Fofana Edit: MADAI DYSON DO on 07/01/18 @ 13:54 I saw the patient with SENIOR ARCHITECT/DESIGN MANAGER and greed with her assessment and plan. Assessment/Plan Assessment/Plan Assessment/Plan (Daily) 68 yo admitted with tracheal bleeding found to have profoundly low plt count of 1,000 #thrombocytopenia, suspect ITP, plt count trended up to 64K today -not in DIC, fibrinogen not low -he had a bone marrow biopsy during a prior admission which showed enlarged plt and was possibly suggestive of peripheral destruction of platelets -he has + TERESE -has h/o negative HIT ab -given profound drop concern for ITP cont dexamethasone 40 mg daily x 4 days then transition to 1 mg/kg daily with slow taper (by 10 mg weekly) IVIG 1 gm /kg daily x 2 days, completed 06/25/18 -if does not have appropriate response to above therapy may need to consider re biopsy of bone marrow -transfuse to keep plt > 5K -check CBC q 8h -keep hgb >7 Plan for [facility] transfer today. Patient seen in collaboration with Dr Dyson. Consultation Date/Type/Reason Admit Date/Time Jun 21, 2018 at 23:06 Initial Consult Date Type of Consult Oncology Reason for Consultation Thrombocytopenia Requesting Provider: NOE MINOR MD Date/Time of Note DATE: 06/28/18 TIME: 15:39 24 HR Interval Summary Free Text/Dictation Patient seems comfortable; alert; responsive no new issues reported last night dw staff Subjective hx not possible: pt non-verbal Constitutional: requiring O2 Exam/Review of Systems Exam Vitals Vital Signs Date Temp Pulse Resp B/P (MAP) Pulse Ox O2 O2 Flow FiO2 Time Delivery Rate 06/28/18 98.6 78 19 137/63 98 14:14 (87) 06/28/18 40 05:00 06/26/18 Mechanical 18:19 Ventilator Intake and Output 06/27/18 06/27/18 06/28/18 1515:00 23:00 07:00 IntakeIntake Total 850 ml 650 ml OutputOutput Total 1300 ml 2100 ml BalanceBalance -450 ml -1450 ml Constitutional: alert, well developed, non-verbal Psych: nl mood/affect Head: normocephalic Eyes: nl lids, nl sclera ENMT: nl external ears & nose Neck: supple, other (trach intact) Respiratory: clear to auscultation Cardiovascular: nl pulses, other (s1s2) Gastrointestinal: soft, non-tender, other (gt intact; colostomy intact) Extremities: normal pulses, other (sp BKA) Neurological: other (alert/responsive to touch and when called by name) Lymph: nontender Results Result Diagram: 06/28/18 0615 06/28/18 0615 Results 24hrs Laboratory Tests Test 06/27/18 17:46 06/27/18 22:15 06/28/18 00:46 06/28/18 06:15 Bedside Glucose 74 192 138 147 White Blood Count 11.5 #H Red Blood Count 3.98 L Hemoglobin 10.7 L Hematocrit 35.6 L Mean Corpuscular 89.4 Volume Mean Corpuscular 26.9 L Hemoglobin Mean Corpuscular 30.1 L Hemoglobin Concent Red Cell 17.6 H Distribution Width Platelet Count 64 L Mean Platelet Volume 12.1 H Immature 1.400 H Granulocytes % Neutrophils % 78.1 H Lymphocytes % 12.5 L Monocytes % 6.4 Eosinophils % 1.3 Basophils % 0.3 Nucleated Red Blood 0.4 H Cells % Immature 0.160 H Granulocytes # Neutrophils # 9.0 H Lymphocytes # 1.4 Monocytes # 0.7 Eosinophils # 0.2 Basophils # 0.0 Nucleated Red Blood 0.1 H Cells # Sodium Level 143 Potassium Level 4.3 Chloride Level 98 Carbon Dioxide Level 39 H Anion Gap 6 Blood Urea Nitrogen 52 H Creatinine 0.65 Est Glomerular > 60 Filtrat Rate mL/min Glucose Level 159 Calcium Level 9.1 Test 06/28/18 12:00 Bedside Glucose 163 Medications Medication Current Medications IV Flush (NS 3 ml) 3 ml PER PROTOCOL IV ; Start 06/21/18 at 23:30 Ondansetron HCl (Zofran Inj) 4 mg Q6H PRN IV NAUSEA/VOMITING Last administered on 06/24/18 08:09; Admin Dose 4 MG; Start 06/21/18 at 23:30 Acetaminophen (Tylenol Tab) 650 mg Q6H PRN PO .PAIN 1-3 OR TEMP Last administered on 06/22/18 10:37; Admin Dose 650 MG; Start 06/21/18 at 23:30 Hydromorphone HCl (Dilaudid) 1 mg Q6H PRN IV SEVERE PAIN LEVEL 7-10 Last administered on 06/28/18 14:27; Admin Dose 1 MG; Start 06/22/18 at 10:00 Clonidine (Catapres) 0.1 mg Q6H PRN GTB ELEVATED BLOOD PRESSURE Last administered on 06/26/18 02:35; Admin Dose 0.1 MG; Start 06/22/18 at 10:00 Lorazepam (Ativan) 1 mg Q4 PRN IV ANXIETY Last administered on 06/28/18 13:23; Admin Dose 1 MG; Start 06/22/18 at 18:30 Pantoprazole (Protonix Iv) 40 mg DAILY@06 IV Last administered on 06/28/18 06:09; Admin Dose 40 MG; Start 06/24/18 at 06:00 Mupirocin (Bactroban) 1 applic BID TOP Last administered on 06/28/18 09:07; Admin Dose 1 APPLIC; Start 06/23/18 at 21:00; Stop 07/01/18 at 09:00 Atorvastatin Calcium (Lipitor) 20 mg QHS PO Last administered on 06/27/18 21:54; Admin Dose 20 MG; Start 06/23/18 at 21:00 Isosorbide Dinitrate (Isordil) 10 mg TID PO Last administered on 06/28/18 13:21; Admin Dose 10 MG; Start 06/23/18 at 21:00 Metoprolol Tartrate (Lopressor) 50 mg Q8 PO Last administered on 06/28/18 13:23; Admin Dose 50 MG; Start 06/23/18 at 22:00 Hydralazine HCl (Apresoline) 10 mg Q4H PRN IV HR>110 Hold SBP<100 Last administered on 06/24/18 04:19; Admin Dose 10 MG; Start 06/23/18 at 20:00 Furosemide (Lasix) 20 mg BID DIURETICS IV Last administered on 06/28/18 06:11; Admin Dose 20 MG; Start 06/23/18 at 20:00 Metoprolol Tartrate (Lopressor) 5 mg Q4H PRN IV HR>110 Hold SBP<100; Start at 20:00 Collagenase (Santyl) 1 applic DAILY TOP Last administered on 06/27/18 08:47; Admin Dose 1 APPLIC; Start 06/25/18 at 09:00 Insulin Aspart (Novolog Insulin Pen) (Adult SC Insulin - Moder... Q6 SC Last administered on 06/28/18 12:03; Admin Dose 2 UNIT; Start 06/26/18 at 00:00 Insulin Aspart Prota 70%/Aspart 30% (Novolog Mix (70/ 30) Flexpen) 20 unit Q8 SC Last administered on 06/28/18 13:46; Admin Dose 20 UNIT; Start 06/26/18 at 22:00 Prednisone (Prednisone) 50 mg DAILY PO Last administered on 06/28/18 08:53; Admin Dose 50 MG; Start 06/28/18 at 09:00 Hydralazine HCl (Apresoline) 75 mg Q8 PO Last administered on 06/28/18 13:22; Admin Dose 75 MG; Start 06/27/18 at 22:00 LES TRENT Jun 28, 2018 15:39
--- NOTE | 2018-06-28 18:22 | RADRPT ---
Vent Rate: 101 bpm RR Interval: 0 msec WI Interval: 168 msec QRS Duration: 126 msec QT Interval: 394 msec QTC Interval: 510 msec P-R-T [place]: 29 - 37 - 117 degrees Sinus tachycardia Left bundle branch block Abnormal ECG Electronically Signed By: Vignesh Ba
== END 2018-06-28 18:26 | DRG 813 ==
LOC: E/R 20:20 → TEL 23:06
PROVIDERS: ADMIT Internal Medicine; ATTEND Internal Medicine
PROC: 30233R1 Transfusion of Nonautologous Platelets into Peripheral Vein, Percutaneous Approach (ICD-10-PCS; 2018-06-21)
PROC: 5A1955Z Respiratory Ventilation, Greater than 96 Consecutive Hours (ICD-10-PCS; 2018-06-21)
PROC: 30233N1 Transfusion of Nonautologous Red Blood Cells into Peripheral Vein, Percutaneous Approach (ICD-10-PCS; principal; 2018-06-22)
PROC: 30233R1 Transfusion of Nonautologous Platelets into Peripheral Vein, Percutaneous Approach (ICD-10-PCS; 2018-06-22)
DX: D69.3 Immune thrombocytopenic purpura (principal); L89.154 Pressure ulcer of sacral region, stage 4; I50.33 Acute on chronic diastolic (congestive) heart failure; J96.10 Chronic respiratory failure, unspecified whether with hypoxia or hypercapnia; J95.01 Hemorrhage from tracheostomy stoma; I48.92 Unspecified atrial flutter; I42.9 Cardiomyopathy, unspecified; D62 Acute posthemorrhagic anemia; Z99.81 Dependence on supplemental oxygen; I11.0 Hypertensive heart disease with heart failure; I44.1 Atrioventricular block, second degree; E11.9 Type 2 diabetes mellitus without complications; F32.9 Major depressive disorder, single episode, unspecified; I25.10 Atherosclerotic heart disease of native coronary artery without angina pectoris; E78.5 Hyperlipidemia, unspecified; I34.2 Nonrheumatic mitral (valve) stenosis; D69.6 Thrombocytopenia, unspecified; Z79.4 Long term (current) use of insulin; Z95.2 Presence of prosthetic heart valve; Z95.1 Presence of aortocoronary bypass graft; Z89.512 Acquired absence of left leg below knee; Z89.511 Acquired absence of right leg below knee; Z87.891 Personal history of nicotine dependence
CPT/HCPCS: 36415; 36430; 71045; 80048; 80053; 82962; 83036; 83880; 84484; 85025; 85049; 85384; 85610; 85730; 86850; 86900; 86901; 86920; 87081; 92610; 93005; 93306; 94002; 94003; C9113; J0360; J1170; J1200; J1459; J1815; J1817; J1940; J2060; J2405; J7512; P9016; P9035

== ENCOUNTER 2018-07-19 18:40 | Inpatient (IN) | payer MEDICARE, MEDICAID ==
[~2018-07-19] VITALS: Ht 132.1 cm; Wt 86.3 kg
[2018-07-19] VITALS (8 sets, daily range): BP systolic 122–130; BP diastolic 57–60; PULSE 68–75; RESP 15–18
[~2018-07-19 18:40] MED LIST changes: +ATOR20TA38 PO; +GABA400C PO; -HYDR-3671 PO; +HYDR-3672 PO; +METO-429 PO; -METO25TA4 PO; +NOVO7030 SC; +OMEP40CA6 PO; +TRAM50TA2 PO
[2018-07-19] MEDS ORDERED: NACL 0.9% 3 ML SYG IV SCH (19:30)
[2018-07-19] MEDS ORDERED: ACETAMINOPHEN 325 MG TAB PO PRN ×2 (19:30)
[2018-07-19] MEDS ORDERED: ONDANSETRON 4 MG TAB PO PRN (19:30)
[2018-07-19] MEDS ORDERED: NITROGLYCERIN (SL) 0.4 MG TAB SL PRN (19:30)
[2018-07-19] MEDS ORDERED: ONDANSETRON 4 MG INJ IV PRN (19:30)
[2018-07-19] MEDS: ALPRAZOLAM 0.25 MG TAB PO PRN (23:14)
[2018-07-19] MEDS: ISOSORBIDE DINITRATE 10 MG TAB PO SCH (23:15)
[2018-07-19] MEDS: SENNA TAB PO SCH (23:15)
[2018-07-19] MEDS: ATORVASTATIN 20 MG TAB PO SCH (23:15)
[2018-07-19] MEDS: APIXABAN 5 MG TABLET PO SCH (23:15)
[2018-07-19] MEDS: FAMOTIDINE 20 MG INJ IV SCH (23:15)
[2018-07-19] MEDS: GABAPENTIN 400 MG CAP PO SCH (23:16)
[2018-07-19] MEDS: METOPROLOL 50 MG TAB PO SCH (23:16)
[2018-07-19] MEDS: LORAZEPAM 2 MG INJ IV PRN (23:16)
[2018-07-20] VITALS (26 sets, daily range): BP systolic 95–134; BP diastolic 50–65; PULSE 55–63; RESP 14–20
[2018-07-20] MEDS: morphine 2 MG INJ IV PRN (00:05)
[2018-07-20] MEDS: traMADol 50 MG TAB PO PRN ×2 (00:05→20:20)
[2018-07-20] MEDS ORDERED: PENDING SANTYL ORDER FOR WOUND CARE XX PRN (01:30)
[2018-07-20] MEDS: METOPROLOL 50 MG TAB PO SCH ×3 (06:21→22:40)
[2018-07-20] MEDS: PANTOPRAZOLE (EC) 40 MG TAB PO SCH (06:21)
[2018-07-20] MEDS: GABAPENTIN 400 MG CAP PO SCH ×3 (06:22→22:39)
[2018-07-20] MEDS: SENNA TAB PO SCH ×2 (08:42→20:20)
[2018-07-20] MEDS: FAMOTIDINE 20 MG INJ IV SCH ×2 (08:42→20:20)
[2018-07-20] MEDS: ALPRAZOLAM 0.25 MG TAB PO PRN ×2 (08:42→20:19)
[2018-07-20] MEDS: MULTIVITAMINS THERAPEUTIC TAB PO SCH (08:43)
[2018-07-20] MEDS: FERROUS SULFATE (EC) 325 MG TAB PO SCH (08:43)
[2018-07-20] MEDS: ISOSORBIDE DINITRATE 10 MG TAB PO SCH ×3 (08:43→20:19)
[2018-07-20] MEDS: ASCORBIC ACID 500 MG TAB PO SCH (08:43)
[2018-07-20] MEDS: APIXABAN 5 MG TABLET PO SCH ×2 (08:43→20:19)
[2018-07-20] MEDS: DULOXETINE 30 MG CAP DR PO SCH (08:44)
--- NOTE | 2018-07-20 12:23 | HP ---
Date/Time of Note Date/Time of Note DATE: 07/20/18 TIME: 12:20 Assessment/Plan VTE Prophylaxis Risk score (from [facility])>0 risk: 6 SCD applied (from [facility]): No SCD contraindicated: other Pharmacological prophylaxis: NA/contraindicated Pharm contraindication: bleeding Lines/Catheters IV C[facility]ter Type (from [facility] Mid Line Urinary Cath still in place: No Assessment/Plan Hospital Course 1) thrombocytopenia - to have medical treatment to improve his platelet count 2) respiratory failure - continue ventilator 3) coronary artery disease - stable at this point Result Diagram: 07/20/18 0538 07/20/18 0538 Results 24hrs Laboratory Tests Test 07/20/18 05:38 White Blood Count 5.7 # Red Blood Count 2.61 L Hemoglobin 7.2 L Hematocrit 23.5 L Mean Corpuscular Volume 90.0 Mean Corpuscular Hemoglobin 27.6 L Mean Corpuscular Hemoglobin Concent 30.6 L Red Cell Distribution Width 17.9 H Platelet Count 13 *L Mean Platelet Volume Immature Granulocytes % 0.900 H Neutrophils % 80.5 H Lymphocytes % 11.9 L Monocytes % 6.5 Eosinophils % 0.2 Basophils % 0.0 Nucleated Red Blood Cells % 0.9 H Immature Granulocytes # 0.050 H Neutrophils # 4.6 Lymphocytes # 0.7 L Monocytes # 0.4 Eosinophils # 0.0 Basophils # 0.0 Nucleated Red Blood Cells # 0.1 H Sodium Level 142 Potassium Level 4.4 Chloride Level 103 Carbon Dioxide Level 34 H Anion Gap 5 Blood Urea Nitrogen 86 H Creatinine 0.92 Est Glomerular Filtrat Rate mL/min > 60 Glucose Level 137 Hemoglobin A1c 5.6 Calcium Level 9.2 Total Bilirubin 1.5 H Direct Bilirubin 0.00 Indirect Bilirubin 1.5 H Aspartate Amino Transf (AST/SGOT) 53 H Alanine Aminotransferase (ALT/SGPT) 57 Alkaline Phosphatase 132 H Total Protein 6.6 Albumin 2.7 L Globulin 3.90 H Albumin/Globulin Ratio 0.69 HPI/ROS Admit Date/Time Admit Date/Time Jul 19, 2018 at 18:40 Hx of Present Illness Patient with coronary artery disease, s/p bilateral below knee amputation, respiratory failure was previously at [facility] but then transferred to [facility] for care of his respiratory failure. Patient was noted to have worsening thrombocytopenia and so is transferred back for further treatment of his thrombocytopenia. Patient is asymptomatic at this time. PMH/Family/Social Past Medical History Medical History: coronary artery disease, high cholesterol, hypertension Medications Current Medications IV Flush (NS 3 ml) 3 ml PER PROTOCOL IV ; Start 07/19/18 at 19:30 Ondansetron HCl (Zofran Inj) 4 mg Q6H PRN IV NAUSEA/VOMITING; Start 07/19/18 at 19:30 Acetaminophen (Tylenol Tab) 650 mg Q6H PRN PO .PAIN 1-3 OR TEMP Last administered on 07/20/18 10:01; Admin Dose 650 MG; Start 07/19/18 at 19:30 Morphine Sulfate (morphine) 2 mg Q4H PRN IV .PAIN 8-10 Last administered on 07/20/18 00:05; Admin Dose 2 MG; Start 07/19/18 at 19:30 Famotidine (Pepcid Iv) 20 mg Q12 IV Last administered on 07/20/18 08:42; Admin Dose 20 MG; Start 07/19/18 at 21:00 Acetaminophen (Tylenol Tab) 650 mg Q6H PRN PO MILD TO MODERATE PAIN; Start 07/19/18 at 19:30 Alprazolam (Xanax) 0.25 mg TID PRN PO ANXIETY Last administered on 07/20/18 08:42; Admin Dose 0.25 MG; Start 07/19/18 at 19:30 Apixaban (Eliquis) 5 mg BID PO Last administered on 07/20/18 08:43; Admin Dose 5 MG; Start 07/19/18 at 21:00 Ascorbic Acid (Vitamin C) 500 mg DAILY PO Last administered on 07/20/18 08:43; Admin Dose 500 MG; Start 07/20/18 at 09:00 Atorvastatin Calcium (Lipitor) 20 mg QHS PO Last administered on 07/19/18 23:15; Admin Dose 20 MG; Start 07/19/18 at 21:00 Duloxetine HCl (Cymbalta) 30 mg DAILY PO Last administered on 07/20/18 08:44; Admin Dose 30 MG; Start 07/20/18 at 09:00 Ferrous Sulfate (Ferrous Sulfate (Ec)) 325 mg DAILY PO Last administered on 07/20/18 08:43; Admin Dose 325 MG; Start 07/20/18 at 09:00 Gabapentin (Neurontin) 400 mg Q8 PO Last administered on 07/20/18 06:22; Admin Dose 400 MG; Start 07/19/18 at 22:00 Hydralazine HCl (Apresoline) 50 mg Q8 PO Last administered on 07/20/18 06:22; Admin Dose 50 MG; Start 07/19/18 at 22:00 Isosorbide Dinitrate (Isordil) 10 mg TID PO Last administered on 07/20/18 08:43; Admin Dose 10 MG; Start 07/19/18 at 21:00 Metoprolol Tartrate (Lopressor) 50 mg Q8 PO Last administered on 07/20/18 06:21; Admin Dose 50 MG; Start 07/19/18 at 22:00 Multivitamins Therapeutic (Theragran) 1 tab DAILY PO Last administered on 07/20 08:43; Admin Dose 1 TAB; Start 07/20/18 at 09:00 Nitroglycerin (Nitroglycerin (Sl Tab) 0.4 Mg) 1 tab [id number] PRN SL CHEST PAIN; Start 07/19/18 at 19:30 Ondansetron HCl (Zofran Tab) 4 mg Q4H PRN PO NAUSEA AND/OR VOMITING; Start 07/19/18 at 19:30 Pantoprazole (Protonix Tab) 40 mg AC BREAKFAST PO Last administered on 07/20/18 06:21; Admin Dose 40 MG; Start 07/20/18 at 07:00 Senna (Senokot) 1 tab BID PO Last administered on 07/20/18 08:42; Admin Dose 1 TAB; Start 07/19/18 at 21:00 Tramadol HCl (Ultram) 50 mg Q6H PRN PO PAIN LEVEL 4-7 Last administered on 07/20/18 00:05; Admin Dose 50 MG; Start 07/19/18 at 19:30 Lorazepam (Ativan) 1 mg Q4H PRN IV AGITATION/ANXIETY Last administered on 07/19/18 23:16; Admin Dose 1 MG; Start 07/19/18 at 22:30 Miscellaneous Information (Pending Santyl Order For Wound Care) This patient pedro... PRN PRN XX WOUND CARE; Start 07/20/18 at 01:30 Coded Allergies: ciprofloxacin (Verified Allergy, Mild, ITCHINESS, RASH , 02/27/18) Penicillins (Verified Allergy, Unknown, 02/27/18) garlic (Verified Allergy, Unknown, 02/27/18) STOMACH UPSET morphine (Verified Allergy, Unknown, 02/27/18) povidone-iodine (Verified Allergy, Unknown, RASH, 02/27/18) soap (Verified Allergy, Unknown, RASH, 02/27/18) Past Surgical History Past Surgical Hx: other Family History Significant Family History: no pertinent family hx Social History Smoking Status: Unknown if ever smoked Exam/Review of Systems Vital Signs Vitals Vital Signs Date Temp Pulse Resp B/P (MAP) Pulse Ox O2 O2 Flow FiO2 Time Delivery Rate 07/20/18 60 08:00 07/20/18 98.4 20 95/50 (65) 100 Mechanical 07:50 Ventilator 07/20/18 30 05:38 Intake and Output 07/19/18 07/19/18 07/20/18 1515:00 23:00 07:00 IntakeIntake Total 915 ml BalanceBalance 915 ml Exam Constitutional: well developed Head: normocephalic, atraumatic Neck: supple Respiratory: diminished breath sounds Cardiovascular: regular rate and rhythm Gastrointestinal: soft, non-tender Extremities: normal pulses JACKIE SHAVER Jul 20, 2018 12:23
[2018-07-20] MEDS: INSULIN ASPART [NOVOLOG] 3 ML PEN SC SCH ×2 (17:24→20:48)
[2018-07-20] MEDS: ATORVASTATIN 20 MG TAB PO SCH (20:19)
[2018-07-21] VITALS (25 sets, daily range): BP systolic 111–129; BP diastolic 54–66; PULSE 60–90; RESP 13–20
[2018-07-21] MEDS: INSULIN ASPART [NOVOLOG] 3 ML PEN SC SCH ×6 (02:18→21:40)
[2018-07-21] MEDS: PANTOPRAZOLE (EC) 40 MG TAB PO SCH (06:12)
[2018-07-21] MEDS: METOPROLOL 50 MG TAB PO SCH ×3 (06:12→21:37)
[2018-07-21] MEDS: GABAPENTIN 400 MG CAP PO SCH ×3 (06:12→21:36)
[2018-07-21] MEDS: ASCORBIC ACID 500 MG TAB PO SCH (09:02)
[2018-07-21] MEDS: FAMOTIDINE 20 MG INJ IV SCH (09:02)
[2018-07-21] MEDS: SENNA TAB PO SCH ×2 (09:02→21:36)
[2018-07-21] MEDS: FERROUS SULFATE (EC) 325 MG TAB PO SCH (09:02)
[2018-07-21] MEDS: MULTIVITAMINS THERAPEUTIC TAB PO SCH (09:02)
[2018-07-21] MEDS: DULOXETINE 30 MG CAP DR PO SCH (09:02)
[2018-07-21] MEDS: APIXABAN 5 MG TABLET PO SCH (09:02)
[2018-07-21] MEDS: ISOSORBIDE DINITRATE 10 MG TAB PO SCH ×3 (09:03→21:37)
--- NOTE | 2018-07-21 12:34 | CONS ---
DATE OF ADMISSION: 07/19/2018 DATE OF CONSULTATION: 07/21/2018 TYPE OF CONSULTATION: Cardiology. REASON FOR CONSULTATION: Paroxysmal atrial fibrillation and atrial flutter, hypertension, history of CABG, history of aortic valve replacement. REQUESTING PHYSICIAN: Noe Minor MD HISTORY OF PRESENT ILLNESS: Mr. 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 The patient has made some improvement and was transferred to [facility] , but has now been transferred back to [facility] due to ongoing severe thrombocyto penia. PAST MEDICAL HISTORY: As above in HPI. MEDICATIONS CURRENTLY IN HOSPITAL: 1. Insulin. 2. Vitamin C. 3. Cymbalta. 4. Ferrous sulfate. 5. Multivitamins. 6. Protonix. 7. Ativan p.r.n. 8. Neurontin 400 mg p.o. daily. 9. Hydralazine 50 mg p.o. daily. 10. Lopressor 50 mg q.8. 11. Pepcid 20 mg IV q.12. 12. Eliquis 5 mg p.o. b.i.d. 13. Lipitor 20 mg at bedtime. 14. Isordil 10 mg 3 times daily. 15. Zofran p.r.n. 16. Tylenol p.r.n. 17. Xanax p.r.n. ALLERGIES: 1. PENICILLIN. 2. CIPRO. 3. GARLIC. 4. MORPHINE. SOCIAL HISTORY: No current tobacco, EtOH or illicit drug use. FAMILY HISTORY: No history of sudden cardiac or early CAD. REVIEW OF SYSTEMS: As above in HPI. CONSTITUTIONAL: No fevers, chills. PULMONARY: Chronic respiratory failure, status post tracheostomy. GASTROINTESTINAL: Dysphagia, status post G-tube. GENITOURINARY: No hematuria. MUSCULOSKELETAL: Degenerative joint disease. PSYCHIATRIC: Positive psych history. NEUROLOGIC: No documented history of CVA. ENDOCRINE: Diabetes mellitus. PHYSICAL EXAMINATION: VITAL SIGNS: Temperature of 98.3, blood pressure 111/63, pulse 61, respiration 20, satting 92%. GENERAL: The patient is sleeping, but arousable. NECK: Tracheostomy in place. CHEST: Upper airway transmitted rhonchus sounds. HEART: Regular rate and rhythm. Normal S1, S2, I/ systolic murmur, nondisplaced PMI. ABDOMEN: Positive bowel sounds, soft, positive G-tube. EXTREMITIES: Status post bilateral lower extremity amputation. LABORATORY DATA: Most recently from today reveals a white blood cell count of 5.7, hemoglobin 7.2, p latelet count of 13. Sodium 142, potassium 4.4, creatinine 0.9, BUN 86. AST 53, ALT 57. IMAGING STUDIES: As above in HPI. No further imaging studies for my review at this time. ELECTROCARDIOGRAM: No electrocardiograms for my review at this time. IMPRESSION: 1. Permanent pacemaker with proper function at this time, primarily AV pacing. No signs of dysfunct ion at this time. 2. History of paroxysmal atrial fibrillation and atrial flutter, had been off anticoagulation due to severe thrombocytopenia, has been started on anticoagulation, which was stopped at this time due to severe thrombocytopenia. 3. Hypertension. 4. Dyslipidemia. 5. History of aortic valve replacement, bioprosthesis in 06/2017. 6. History of coronary artery disease, status post coronary artery bypass graft surgery in 06/2017 u sing AHUJA to LAD. 7. 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 8. Diabetes mellitus. 9. Dysphagia, status post G-tube. 10. Chronic respiratory failure, status post tracheostomy. RECOMMENDATIONS: 1. At this time, we would maintain the patient on telemetry monitoring to follow rhythm and rate con trol closely. 2. We would check serial EKGs to assess for significant ongoing changes, an EKG in morning, EKG for any complaints of chest pain or change in rhythm. 3. Continue the patient's baseline beta francheska to control heart rate and blood pressure and continu e the patient's hydralazine for control of blood pressure additionally. 4. Continue the patient's statin at this time and adjust it according to fasting lipid panel. 5. Continue patient's antianginal medication, Isordil and follow for recurrent episodes of chest iris n. 6. We will hold the patient's Eliquis at this time in the setting of severe thrombocytopenia. 7. Ongoing treatment and evaluation of the patient's thrombocytopenia per PMD and alternative consul tations including a hematology consultation. Thank you for allowing me to take part in the care of this patient. I will continue to follow him ve ry closely with you with further recommendations to be made as the [facility] Dictated By: RODGER HEMPHILL/KRYSTAL Conf#: [id number] DID#: [id number] CC: NOE MINOR MD;*EndCC*
--- NOTE | 2018-07-21 13:02 | PN ---
Date/Time of Note Date/Time of Note DATE: 07/21/18 TIME: 13:01 Assessment/Plan VTE Prophylaxis [place] [facility] risk: 4 SCD applied [place] [facility] No SCD contraindicated: other Pharmacological prophylaxis: NA/contraindicated Pharm contraindication: blood coag disorder Lines/Catheters IV [facility] (from [facility] Mid Line Urinary Cath still in place: No Assessment/Plan Hospital Course 1) thrombocytopenia - to have medical treatment to improve his platelet count 2) respiratory failure - continue ventilator 3) coronary artery disease - stable at this point Result Diagram: 07/20/1838 07/20/1838 Results 24hrs Laboratory Tests Test 07/20/18 17:07 07/20/18 20:18 07/21/18 02:12 07/21/18 06:09 Bedside Glucose 238 H 199 179 172 Test 07/21/18 07:40 07/21/18 12:51 Bedside Glucose 193 225 H Subjective 24 Hr Interval Summary Free Text/Dictation Patient has no acute complaints Exam/Review of Systems Exam Vitals Vital Signs Date Temp Pulse Resp B/P (MAP) Pulse Ox O2 O2 Flow FiO2 Time Delivery Rate 07/21/18 65 123/58 12:46 (79) 07/21/18 98.3 20 90 12:08 07/21/18 30 11:15 07/21/18 Mechanical 03:38 Ventilator Intake and Output 07/20/18 07/20/18 07/21/18 1515:00 23:00 07:00 IntakeIntake Total 1230 ml 1330 ml OutputOutput Total 403 ml BalanceBalance 1230 ml 927 ml Constitutional: well developed Head: normocephalic, atraumatic Neck: supple Respiratory: diminished breath sounds Cardiovascular: regular rate and rhythm Gastrointestinal: soft, non-tender Extremities: normal pulses Results Results 24hrs Laboratory Tests Test 07/20/18 17:07 07/20/18 20:18 07/21/18 02:12 07/21/18 06:09 Bedside Glucose 238 H 199 179 172 Test 07/21/18 07:40 07/21/18 12:51 Bedside Glucose 193 225 H Medications Medication Current Medications IV Flush (NS 3 ml) 3 ml PER PROTOCOL IV ; Start 07/19/18 at 19:30 Ondansetron HCl (Zofran Inj) 4 mg Q6H PRN IV NAUSEA/VOMITING; Start 07/19/18 at 19:30 Acetaminophen (Tylenol Tab) 650 mg Q6H PRN PO .PAIN 1-3 OR TEMP Last administered on 07/20/18 10:01; Admin Dose 650 MG; Start 07/19/18 at 19:30 Morphine Sulfate (morphine) 2 mg Q4H PRN IV .PAIN 8-10 Last administered on 00:05; Admin Dose 2 MG; Start 07/19/18 at 19:30 Famotidine (Pepcid Iv) 20 mg Q12 IV Last administered on 07/21/18 09:02; Admin Dose 20 MG; Start 07/19/18 at 21:00 Acetaminophen (Tylenol Tab) 650 mg Q6H PRN PO MILD TO MODERATE PAIN; Start 07/19/18 at 19:30 Alprazolam (Xanax) 0.25 mg TID PRN PO ANXIETY Last administered on 07/20/18 20:19; Admin Dose 0.25 MG; Start 07/19/18 at 19:30 Ascorbic Acid (Vitamin C) 500 mg DAILY PO Last administered on 07/21/18 09:02; Admin Dose 500 MG; Start 07/20/18 at 09:00 Atorvastatin Calcium (Lipitor) 20 mg QHS PO Last administered on 07/20/18 20:1 9; Admin Dose 20 MG; Start 07/19/18 at 21:00 Duloxetine HCl (Cymbalta) 30 mg DAILY PO Last administered on 07/21/18 09:02; Admin Dose 30 MG; Start 07/20/18 at 09:00 Ferrous Sulfate (Ferrous Sulfate (Ec)) 325 mg DAILY PO Last administered on 07/21/18 09:02; Admin Dose 325 MG; Start 07/20/18 at 09:00 Gabapentin (Neurontin) 400 mg Q8 PO Last administered on 07/21/18 06:12; Admin Dose 400 MG; Start 07/19/18 at 22:00 Hydralazine HCl (Apresoline) 50 mg Q8 PO Last administered on 07/21/18 06:12; Admin Dose 50 MG; Start 07/19/18 at 22:00 Isosorbide Dinitrate (Isordil) 10 mg TID PO Last administered on 07/21/18 12:47; Admin Dose 10 MG; Start 07/19/18 at 21:00 Metoprolol Tartrate (Lopressor) 50 mg Q8 PO Last administered on 07/21/18 06:12; Admin Dose 50 MG; Start 07/19/18 at 22:00 Multivitamins Therapeutic (Theragran) 1 tab DAILY PO Last administered on 07/21/18 09:02; Admin Dose 1 TAB; Start 07/20/18 at 09:00 Nitroglycerin (Nitroglycerin (Sl Tab) 0.4 Mg) 1 tab [id number] PRN SL CHEST PAIN; Start 07/19/18 at 19:30 Ondansetron HCl (Zofran Tab) 4 mg Q4H PRN PO NAUSEA AND/OR VOMITING; Start 07/19/18 at 19:30 Pantoprazole (Protonix Tab) 40 mg AC BREAKFAST PO Last administered on 07/21/18 06:12; Admin Dose 40 MG; Start 07/20/18 at 07:00 Senna (Senokot) 1 tab BID PO Last administered on 07/21/18 09:02; Admin Dose 1 TAB; Start 07/19/18 at 21:00 Tramadol HCl (Ultram) 50 mg Q6H PRN PO PAIN LEVEL 4-7 Last administered on 07/20/18 20:20; Admin Dose 50 MG; Start 07/19/18 at 19:30 Lorazepam (Ativan) 1 mg Q4H PRN IV AGITATION/ANXIETY Last administered on 07/19/18 23:16; Admin Dose 1 MG; Start 07/19/18 at 22:30 Miscellaneous Information (Pending [facility] Order For Wound Care) This patient pedro... PRN PRN XX WOUND CARE; Start 07/20/18 at 01:30 Insulin Aspart (Novolog Insulin Pen) NOVOLOG *MODERATE* ALGORI... Q4 SC Last administered on 07/21/18 12:59; Admin Dose 6 UNIT; Start 07/20/18 at 17:00 JACKIE SHAVER Jul 21, 2018 13:02
[2018-07-21] MEDS: ATORVASTATIN 20 MG TAB PO SCH (21:36)
[2018-07-22] VITALS (25 sets, daily range): BP systolic 82–122; BP diastolic 45–58; PULSE 60–106; RESP 12–20
[2018-07-22] MEDS: traMADol 50 MG TAB PO PRN (00:20)
[2018-07-22] MEDS: ALPRAZOLAM 0.25 MG TAB PO PRN (00:20)
[2018-07-22] MEDS: INSULIN ASPART [NOVOLOG] 3 ML PEN SC SCH ×8 (00:34→23:33)
[2018-07-22] MEDS: GABAPENTIN 400 MG CAP PO SCH ×3 (06:02→22:37)
[2018-07-22] MEDS: PANTOPRAZOLE (EC) 40 MG TAB PO SCH (06:02)
[2018-07-22] MEDS: METOPROLOL 50 MG TAB PO SCH ×3 (06:02→22:00)
--- NOTE | 2018-07-22 08:39 | CONS ---
Consult Date/Type/Reason Admit Date/Time Jul 19, 2018 at 18:40 Initial Consult Date Date/Time of Note DATE: 07/22/18 TIME: 08:37 Subjective NO acute events - no bleeding - plts low - oncology follows. ROS: No fever, no chills, no nausea, no vomiting, no diarrhea/constipation - per nurse Objective Vitals Vital Signs Date Temp Pulse Resp B/P (MAP) Pulse Ox O2 O2 Flow FiO2 Time Delivery Rate 07/22/18 98.3 60 20 82/45 (57) 97 07:33 07/22/18 40 05:09 07/21/18 Mechanical 03:38 Ventilator Intake and Output 07/21/18 07/21/18 07/22/18 1515:00 23:00 07:00 IntakeIntake Total 1260 ml 1230 ml BalanceBalance 1260 ml 1230 ml Exam General: WN/WD/NAD, AOx comfortable HEENT: Unicetric/atraumatic/EOMI (follows commands) NECK: JVD elevated, no thyromegaly Lymph: no lymphadenopathy HEART: regular with no S3, II/ systolic murmur at apex, pacer L LUNGS: Coarse sounds ABD: soft, NT, ND, +BS : Intact Neuro: non focal SKIN: chronic changes EXT: amputated Results/Medications Result Diagram: 07/22/18 0540 07/20/18 0538 Results 24 hrs Laboratory Tests Test 07/21/18 12:51 07/21/18 16:53 07/21/18 21:31 07/22/18 00:30 Bedside Glucose 225 H 201 209 217 Test 07/22/18 05:37 07/22/18 05:40 Bedside Glucose 115 White Blood Count 6.7 Red Blood Count 2.70 L Hemoglobin 7.6 L Hematocrit 24.2 L Mean Corpuscular 89.6 Volume Mean Corpuscular 28.1 L Hemoglobin Mean Corpuscular 31.4 L Hemoglobin Concent Red Cell 18.1 H Distribution Width Platelet Count 3 #*L Mean Platelet Volume Immature 0.800 H Granulocytes % Neutrophils % Segmented 66 Neutrophils % (Manual) Band Neutrophils % 16 H (Manual) Lymphocytes % Lymphocytes % 11 L (Manual) Reactive 3 H Lymphocytes % (Manual) Monocytes % Monocytes % 4 (Manual) Eosinophils % Basophils % Nucleated Red 0.3 H Blood Cells % Immature 0.050 H Granulocytes # Neutrophils # Neutrophils # 4.5 (Manual) Band Neutrophils # 1.0 H Lymphocytes 0.7 L (Manual) Lymphocytes # Reactive 0.2 H Lymphocytes # Monocytes # Monocytes # 0.2 L (Manual) Eosinophils # Basophils # Nucleated Red Blood Cells # Platelet Estimate SIG DECREASED Giant Platelets 1 H Polychromasia 1+ Poikilocytosis 1+ Anisocytosis 3+ Microcytosis 3+ Home Meds Reported Medications Tramadol HCl (Tramadol HCl) 50 Mg Tablet, 50 MG PO Q6H PRN for PAIN LEVEL 7-10, #120 TAB 06/23/18 Hydralazine Hcl* (Hydralazine Hcl*) 50 Mg Tab, 50 MG PO Q8 for hypertension, #90 TAB 06/23/18 Gabapentin* (Neurontin*) 400 Mg Capsule, 400 MG PO Q8, #90 CAP 06/23/18 Insulin Isophan/Regular (Humulin 70/30) 100 Units/Ml Susp, 18 UNIT SC Q8, EA 06/23/18 Omeprazole* (Omeprazole*) 40 Mg Capsule.dr, 40 MG PO DAILY, #30 CAP 06/23/18 Metoprolol Tartrate* (Lopressor*) 50 Mg Tab, 50 MG PO Q8, #60 TAB 06/23/18 Atorvastatin Calcium* (Atorvastatin Calcium*) 20 Mg Tablet, 20 MG PO QHS, #30 TAB 06/23/18 Ondansetron Hcl* (Ondansetron Hcl*) 4 Mg Tablet, 4 MG PO Q4H PRN for NAUSEA AND OR VOMITING, TAB 11/11/17 Budesonide-Formoterol Fumarate* (Symbicort*) 160-4.5 Hfa.aer.ad, 1 PUFF INHALATION BID, #1 EACH 11/11/17 Sennosides* (Senna Lax*) 8.6 Mg Tablet, 1 TAB PO BID, TAB 11/11/17 Multivitamins* (Theragran*) 1 Tab Tab, 1 TAB PO DAILY, TAB 11/11/17 Isosorbide Dinitrate* (Isosorbide Dinitrate*) 10 Mg Tablet, 10 MG PO TID, TAB 11/11/17 Ascorbic Acid* (Vitamin C*) 500 Mg Capsule.sa, 500 MG PO DAILY, CAP 11/11/17 Pantoprazole* (Protonix*) 40 Mg Tablet.dr, 40 MG PO AC BREAKFAST, TAB 08/07/17 Apixaban* (Eliquis*) 5 Mg Tablet, 5 MG PO BID, TAB 08/07/17 Nitroglycerin* (Nitrostat*) 0.4 Mg Tab.subl, 0.4 MG SL Q5MIN PRN for CHEST PAIN, BOTTLE 05/19/17 Duloxetine Hcl* (Cymbalta*) 30 Mg Capsule.dr, 30 MG PO DAILY, CAP 05/19/17 Acetaminophen* (Acetaminophen*) 650 Mg Tablet, 650 MG PO Q6H PRN for MILD TO MODERATE PAIN, #30 TAB 03/18/17 Alprazolam* (Alprazolam*) 0.25 Mg Tablet, 0.25 MG PO TID PRN for ANXIETY, TAB 03/18/17 Ferrous Sulfate* (Ferrous Sulfate*) 325 Mg Tabec, 325 MG PO DAILY, TAB 03/18/17 Medications Current Medications IV Flush (NS 3 ml) 3 ml PER PROTOCOL IV ; Start 07/19/18 at 19:30 Ondansetron HCl (Zofran Inj) 4 mg Q6H PRN IV NAUSEA/VOMITING; Start 07/19/18 at 19:30 Acetaminophen (Tylenol Tab) 650 mg Q6H PRN PO .PAIN 1-3 OR TEMP Last administered on 07/20/18at 10:01; Admin Dose 650 MG; Start 07/19/18 at 19:30 Morphine Sulfate (morphine) 2 mg Q4H PRN IV .PAIN 8-10 Last administered on 07/20/18at 00:05; Admin Dose 2 MG; Start 07/19/18 at 19:30 Acetaminophen (Tylenol Tab) 650 mg Q6H PRN PO MILD TO MODERATE PAIN; Start 07/19/18 at 19:30 Alprazolam (Xanax) 0.25 mg TID PRN PO ANXIETY Last administered on 07/22/18at 00:20; Admin Dose 0.25 MG; Start 07/19/18 at 19:30 Ascorbic Acid (Vitamin C) 500 mg DAILY PO Last administered on 07/21/18at 09:02; Admin Dose 500 MG; Start 07/20/18 at 09:00 Atorvastatin Calcium (Lipitor) 20 mg QHS PO Last administered on 07/21/18at 21:36; Admin Dose 20 MG; Start 07/19/18 at 21:00 Duloxetine HCl (Cymbalta) 30 mg DAILY PO Last administered on 07/21/18 09:02; Admin Dose 30 MG; Start 07/20/18 at 09:00 Ferrous Sulfate (Ferrous Sulfate (Ec)) 325 mg DAILY PO Last administered on 07/21/18 09:02; Admin Dose 325 MG; Start 07/20/18 at 09:00 Gabapentin (Neurontin) 400 mg Q8 PO Last administered on 07/22/18 06:02; Admin Dose 400 MG; Start 07/19/18 at 22:00 Hydralazine HCl (Apresoline) 50 mg Q8 PO Last administered on 07/21/18 21:37; Admin Dose 50 MG; Start 07/19/18 at 22:00 Isosorbide Dinitrate (Isordil) 10 mg TID PO Last administered on 07/21/18 21:37; Admin Dose 10 MG; Start 07/19/18 at 21:00 Metoprolol Tartrate (Lopressor) 50 mg Q8 PO Last administered on 07/22/18 06:02; Admin Dose 50 MG; Start 07/19/18 at 22:00 Multivitamins Therapeutic (Theragran) 1 tab DAILY PO Last administered on 07/21/18 09:02; Admin Dose 1 TAB; Start 07/20/18 at 09:00 Nitroglycerin (Nitroglycerin (Sl Tab) 0.4 Mg) 1 tab [id number] PRN SL CHEST PAIN; Start 07/19/18 at 19:30 Ondansetron HCl (Zofran Tab) 4 mg Q4H PRN PO NAUSEA AND/OR VOMITING; Start 07/19/18 at 19:30 Pantoprazole (Protonix Tab) 40 mg AC BREAKFAST PO Last administered on 07/22/18 06:02; Admin Dose 40 MG; Start 07/20/18 at 07:00 Senna (Senokot) 1 tab BID PO Last administered on 07/21/18 21:36; Admin Dose 1 TAB; Start 07/19/18 at 21:00 Tramadol HCl (Ultram) 50 mg Q6H PRN PO PAIN LEVEL 4-7 Last administered on 07/22/18 00:20; Admin Dose 50 MG; Start 07/19/18 at 19:30 Lorazepam (Ativan) 1 mg Q4H PRN IV AGITATION/ANXIETY Last administered on 07/19/18at 23:16; Admin Dose 1 MG; Start 07/19/18 at 22:30 [facility]isc[facility] This patient pedro... PRN PRN XX WOUND CARE; Start 07/20/18 at 01:30 Insulin Aspart (Novolog Insulin Pen) NOVOLOG *MODERATE* ALGORI... Q4 SC Last administered on 07/22/18at 00:34; Admin Dose 4 UNIT; Start 07/20/18 at 17:00 Assessment/Plan Hospital Course (Demo Recall) 1. Permanent pacemaker with proper function at this time, primarily AV pacing. No signs of dysfunction at this time - with good fxn now. 2. History of paroxysmal atrial fibrillation and atrial flutter, had been off anticoagulation due to severe thrombocytopenia, has been started on antico agulation, which was stopped at this time due to severe thrombocytopenia. Off anti-coag now. 3. Hypertension - well controlled. 4. Dyslipidemia. 5. History of aortic valve replacement, bioprosthesis in 06/2017- stable by exam. 6. History of coronary artery disease, status post coronary artery bypass graft surgery in 06/2017 using AHUJA to LAD. On meds. 7. 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 8. Diabetes mellitus. 9. Dysphagia, status post G-tube. 10. Chronic respiratory failure, status post tracheostomy- con;t resp Rx. REGINA TOMAS MD Jul 22, 2018 08:39
[2018-07-22] MEDS: ISOSORBIDE DINITRATE 10 MG TAB PO SCH ×3 (09:00→22:37)
[2018-07-22] MEDS: FERROUS SULFATE (EC) 325 MG TAB PO SCH (09:54)
[2018-07-22] MEDS: SENNA TAB PO SCH ×2 (09:54→22:37)
[2018-07-22] MEDS: ASCORBIC ACID 500 MG TAB PO SCH (09:54)
[2018-07-22] MEDS: MULTIVITAMINS THERAPEUTIC TAB PO SCH (09:54)
[2018-07-22] MEDS: DULOXETINE 30 MG CAP DR PO SCH (09:54)
[2018-07-22] MEDS ORDERED: DEXAMETHASONE 10 MG/ML 1 ML INJ IV ONE (10:00)
--- NOTE | 2018-07-22 10:07 | CONS ---
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 Thank you for the opportunity to participate in this patients care A total of 40 minutes of face to face time was spent speaking with the patient, of which greater than 50% was spent in counseling and coordination of care and the detailed question and answer session. Consultation Date/Type/Reason Admit Date/Time Jul 19, 2018 at 18:40 Date of Consultation: Jul 22, 2018 Type of Consult hematology Reason for Consultation ITP Requesting Provider: NOE MINOR MD Date/Time of Note DATE: 07/22/18 TIME: 09:49 Hx of Present Illness Mr Erazo is a 68 yo male with multiple medical problems including coronary artery disease, respiratory failure with trach with history of ITP. During his last admission to [facility] pt was noted to respond well to steroids. He was transferred to [place] after regaining his counts. Bone marrow biopsy in September 2017 showing no obvious pathology but was suggestive of perhaps peripheral plt destruction. PT again has severe thrombocytopenia now with 3K platelets. HE is also c/o headaches. Last admission also revealed: + TERESE + Hep C ab but negative pcr negative for Hep B h/o negative antiplt antibodies Constitutional: poor po, other (weakness) Eyes: no complaints ENT: no complaints Respiratory: no complaints Cardiovascular: no complaints Gastrointestinal: decreased appetite Genitourinary: no complaints Musculoskeletal: bone/joint pain Skin: no complaints Neurologic: headache Endocrine: no complaints Past Medical History Medical History: coronary artery disease, high cholesterol, hypertension Home Meds Reported Medications Tramadol HCl (Tramadol HCl) 50 Mg Tablet, 50 MG PO Q6H PRN for PAIN LEVEL 7-10, #120 TAB 06/23/18 Hydralazine Hcl* (Hydralazine Hcl*) 50 Mg Tab, 50 MG PO Q8 for hypertension, #90 TAB 06/23/18 Gabapentin* (Neurontin*) 400 Mg Capsule, 400 MG PO Q8, #90 CAP 06/23/18 Insulin Isophan/Regular (Humulin 70/30) 100 Units/Ml Susp, 18 UNIT SC Q8, EA 06/23/18 Omeprazole* (Omeprazole*) 40 Mg Capsule.dr, 40 MG PO DAILY, #30 CAP 06/23/18 Metoprolol Tartrate* (Lopressor*) 50 Mg Tab, 50 MG PO Q8, #60 TAB 06/23/18 Atorvastatin Calcium* (Atorvastatin Calcium*) 20 Mg Tablet, 20 MG PO QHS, #30 TAB 06/23/18 Ondansetron Hcl* (Ondansetron Hcl*) 4 Mg Tablet, 4 MG PO Q4H PRN for NAUSEA AND OR VOMITING, TAB 11/11/17 Budesonide-Formoterol Fumarate* (Symbicort*) 160-4.5 Hfa.aer.ad, 1 PUFF INHALATION BID, #1 EACH 11/11/17 Sennosides* (Senna Lax*) 8.6 Mg Tablet, 1 TAB PO BID, TAB 11/11/17 Multivitamins* (Theragran*) 1 Tab Tab, 1 TAB PO DAILY, TAB 11/11/17 Isosorbide Dinitrate* (Isosorbide Dinitrate*) 10 Mg Tablet, 10 MG PO TID, TAB 11/11/17 Ascorbic Acid* (Vitamin C*) 500 Mg Capsule.sa, 500 MG PO DAILY, CAP 11/11/17 Pantoprazole* (Protonix*) 40 Mg Tablet.dr, 40 MG PO AC BREAKFAST, TAB 08/07/17 Apixaban* (Eliquis*) 5 Mg Tablet, 5 MG PO BID, TAB 08/07/17 Nitroglycerin* (Nitrostat*) 0.4 Mg Tab.subl, 0.4 MG SL Q5MIN PRN for CHEST PAIN, BOTTLE 05/19/17 Duloxetine Hcl* (Cymbalta*) 30 Mg Capsule.dr, 30 MG PO DAILY, CAP 05/19/17 Acetaminophen* (Acetaminophen*) 650 Mg Tablet, 650 MG PO Q6H PRN for MILD TO MODERATE PAIN, #30 TAB 03/18/17 Alprazolam* (Alprazolam*) 0.25 Mg Tablet, 0.25 MG PO TID PRN for ANXIETY, TAB 03/18/17 Ferrous Sulfate* (Ferrous Sulfate*) 325 Mg Tabec, 325 MG PO DAILY, TAB 03/18/17 Medications Current Medications IV Flush (NS 3 ml) 3 ml PER PROTOCOL IV ; Start 07/19/18 at 19:30 Ondansetron HCl (Zofran Inj) 4 mg Q6H PRN IV NAUSEA/VOMITING; Start 07/19/18 at 19:30 Acetaminophen (Tylenol Tab) 650 mg Q6H PRN PO .PAIN 1-3 OR TEMP Last administered on 07/20/18at 10:01; Admin Dose 650 MG; Start 07/19/18 at 19:30 Morphine Sulfate (morphine) 2 mg Q4H PRN IV .PAIN 8-10 Last administered on 07/20/18at 00:05; Admin Dose 2 MG; Start 07/19/18 at 19:30 Acetaminophen (Tylenol Tab) 650 mg Q6H PRN PO MILD TO MODERATE PAIN; Start 07/19/18 at 19:30 Alprazolam (Xanax) 0.25 mg TID PRN PO ANXIETY Last administered on 07/22/18 00:20; Admin Dose 0.25 MG; Start 07/19/18 at 19:30 Ascorbic Acid (Vitamin C) 500 mg DAILY PO Last administered on 07/21/18 09:02; Admin Dose 500 MG; Start 07/20/18 at 09:00 Atorvastatin Calcium (Lipitor) 20 mg QHS PO Last administered on 07/21/18at 21:36; Admin Dose 20 MG; Start 07/19/18 at 21:00 Duloxetine HCl (Cymbalta) 30 mg DAILY PO Last administered on 07/21/18 09:02; Admin Dose 30 MG; Start 07/20/18 at 09:00 Ferrous Sulfate (Ferrous Sulfate (Ec)) 325 mg DAILY PO Last administered on 07/21/18 09:02; Admin Dose 325 MG; Start 07/20/18 at 09:00 Gabapentin (Neurontin) 400 mg Q8 PO Last administered on 07/22/18 06:02; Admin Dose 400 MG; Start 07/19/18 at 22:00 Hydralazine HCl (Apresoline) 50 mg Q8 PO Last administered on 07/21/18 21:37; Admin Dose 50 MG; Start 07/19/18 at 22:00 Isosorbide Dinitrate (Isordil) 10 mg TID PO Last administered on 07/21/18 21:37; Admin Dose 10 MG; Start 07/19/18 at 21:00 Metoprolol Tartrate (Lopressor) 50 mg Q8 PO Last administered on 07/22/18 06:02; Admin Dose 50 MG; Start 07/19/18 at 22:00 Multivitamins Therapeutic (Theragran) 1 tab DAILY PO Last administered on 07/21/18 09:02; Admin Dose 1 TAB; Start 07/20/18 at 09:00 Nitroglycerin (Nitroglycerin (Sl Tab) 0.4 Mg) 1 tab [id number] PRN SL CHEST PAIN; Start 07/19/18 at 19:30 Ondansetron HCl (Zofran Tab) 4 mg Q4H PRN PO NAUSEA AND/OR VOMITING; Start 07/19/18 at 19:30 Pantoprazole (Protonix Tab) 40 mg AC BREAKFAST PO Last administered on 07/22/18 06:02; Admin Dose 40 MG; Start 07/20/18 at 07:00 Senna (Senokot) 1 tab BID PO Last administered on 07/21/18 21:36; Admin Dose 1 TAB; Start 07/19/18 at 21:00 Tramadol HCl (Ultram) 50 mg Q6H PRN PO PAIN LEVEL 4-7 Last administered on 07/22/18 00:20; Admin Dose 50 MG; Start 07/19/18 at 19:30 Lorazepam (Ativan) 1 mg Q4H PRN IV AGITATION/ANXIETY Last administered on 07/19/18at 23:16; Admin Dose 1 MG; Start 07/19/18 at 22:30 [facility] This patient pedro... PRN PRN XX WOUND CARE; Start 07/20/18 at 01:30 Insulin Aspart (Novolog Insulin Pen) NOVOLOG *MODERATE* ALGORI... Q4 SC Last administered on 07/22/18at 00:34; Admin Dose 4 UNIT; Start 07/20/18 at 17:00 Immune Globulin (Carimune Nf) 40 gm DAILY IV ; Start 07/23/18 at 09:00; Status UNV Allergies: Coded Allergies: ciprofloxacin (Verified Allergy, Mild, ITCHINESS, RASH , 02/27/18) Penicillins (Verified Allergy, Unknown, 02/27/18) garlic (Verified Allergy, Unknown, 02/27/18) STOMACH UPSET morphine (Verified Allergy, Unknown, 02/27/18) povidone-iodine (Verified Allergy, Unknown, RASH, 02/27/18) soap (Verified Allergy, Unknown, RASH, 02/27/18) Past Surgical History Past Surgical Hx: other Family History Significant Family History: no pertinent family hx Social History Alcohol Use: none Smoking Status: Unknown if ever smoked Drug Use: none Exam/Review of Systems Exam Vitals Vital Signs Date Temp Pulse Resp B/P (MAP) Pulse Ox O2 O2 Flow FiO2 Time Delivery Rate 07/22/18 98.3 60 20 82/45 (57) 97 07:33 07/22/18 40 05:09 07/21/18 Mechanical 03:38 Ventilator Intake and Output 07/21/18 07/21/18 07/22/18 1414:59 22:59 06:59 IntakeIntake Total 1260 ml 1230 ml BalanceBalance 1260 ml 1230 ml Constitutional: alert, oriented, frail Psych: anxiety Head: normocephalic Eyes: nl conjunctiva ENMT: nl external ears & nose Neck: supple Respiratory: clear to auscultation Cardiovascular: regular rate and rhythm Gastrointestinal: soft Musculoskeletal: nl extremities to inspection Extremities: normal pulses Results Result Diagram: 07/22/18 0540 07/20/18 0538 Results 24hrs Laboratory Tests Test 07/21/18 12:51 07/21/18 16:53 07/21/18 21:31 07/22/18 00:30 Bedside Glucose 225 H 201 209 217 Test 07/22/18 05:37 07/22/18 05:40 07/22/18 08:58 Bedside Glucose 115 196 White Blood Count 6.7 Red Blood Count 2.70 L Hemoglobin 7.6 L Hematocrit 24.2 L Mean Corpuscular 89.6 Volume Mean Corpuscular 28.1 L Hemoglobin Mean Corpuscular 31.4 L Hemoglobin Concent Red Cell 18.1 H Distribution Width Platelet Count 3 #*L Mean Platelet Volume Immature 0.800 H Granulocytes % Neutrophils % Segmented 66 Neutrophils % (Manual) Band Neutrophils % 16 H (Manual) Lymphocytes % Lymphocytes % 11 L (Manual) Reactive 3 H Lymphocytes % (Manual) Monocytes % Monocytes % 4 (Manual) Eosinophils % Basophils % Nucleated Red 0.3 H Blood Cells % Immature 0.050 H Granulocytes # Neutrophils # Neutrophils # 4.5 (Manual) Band Neutrophils # 1.0 H Lymphocytes 0.7 L (Manual) Lymphocytes # Reactive 0.2 H Lymphocytes # Monocytes # Monocytes # 0.2 L (Manual) Eosinophils # Basophils # Nucleated Red Blood Cells # Platelet Estimate SIG DECREASED Giant Platelets 1 H Polychromasia 1+ Poikilocytosis 1+ Anisocytosis 3+ Microcytosis 3+ Medications Medication Current Medications IV Flush (NS 3 ml) 3 ml PER PROTOCOL IV ; Start 07/19/18 at 19:30 Ondansetron HCl (Zofran Inj) 4 mg Q6H PRN IV NAUSEA/VOMITING; Start 07/19/18 at 19:30 Acetaminophen (Tylenol Tab) 650 mg Q6H PRN PO .PAIN 1-3 OR TEMP Last administe red on 07/20/18at 10:01; Admin Dose 650 MG; Start 07/19/18 at 19:30 Morphine Sulfate (morphine) 2 mg Q4H PRN IV .PAIN 8-10 Last administered on 07/20/18at 00:05; Admin Dose 2 MG; Start 07/19/18 at 19:30 Acetaminophen (Tylenol Tab) 650 mg Q6H PRN PO MILD TO MODERATE PAIN; Start 07/19/18 at 19:30 Alprazolam (Xanax) 0.25 mg TID PRN PO ANXIETY Last administered on 07/22/18at 00:20; Admin Dose 0.25 MG; Start 07/19/18 at 19:30 Ascorbic Acid (Vitamin C) 500 mg DAILY PO Last administered on 07/21/18 09:02; Admin Dose 500 MG; Start 07/20/18 at 09:00 Atorvastatin Calcium (Lipitor) 20 mg QHS PO Last administered on 07/21/18at 21:36; Admin Dose 20 MG; Start 07/19/18 at 21:00 Duloxetine HCl (Cymbalta) 30 mg DAILY PO Last administered on 07/21/18 09:02; Admin Dose 30 MG; Start 07/20/18 at 09:00 Ferrous Sulfate (Ferrous Sulfate (Ec)) 325 mg DAILY PO Last administered on 07/21/18 09:02; Admin Dose 325 MG; Start 07/20/18 at 09:00 Gabapentin (Neurontin) 400 mg Q8 PO Last administered on 07/22/18 06:02; Admin Dose 400 MG; Start 07/19/18 at 22:00 Hydralazine HCl (Apresoline) 50 mg Q8 PO Last administered on 07/21/18 21:37; Admin Dose 50 MG; Start 07/19/18 at 22:00 Isosorbide Dinitrate (Isordil) 10 mg TID PO Last administered on 07/21/18 21:37; Admin Dose 10 MG; Start 07/19/18 at 21:00 Metoprolol Tartrate (Lopressor) 50 mg Q8 PO Last administered on 07/22/18 06:02; Admin Dose 50 MG; Start 07/19/18 at 22:00 Multivitamins Therapeutic (Theragran) 1 tab DAILY PO Last administered on 09:02; Admin Dose 1 TAB; Start 07/20/18 at 09:00 Nitroglycerin (Nitroglycerin (Sl Tab) 0.4 Mg) 1 tab [id number] PRN SL CHEST PAIN; Start 07/19/18 at 19:30 Ondansetron HCl (Zofran Tab) 4 mg Q4H PRN PO NAUSEA AND/OR VOMITING; Start 07/19/18 at 19:30 Pantoprazole (Protonix Tab) 40 mg AC BREAKFAST PO Last administered on 07/22/18 06:02; Admin Dose 40 MG; Start 07/20/18 at 07:00 Senna (Senokot) 1 tab BID PO Last administered on 07/21/18 21:36; Admin Dose 1 TAB; Start 07/19/18 at 21:00 Tramadol HCl (Ultram) 50 mg Q6H PRN PO PAIN LEVEL 4-7 Last administered on 07/22/18 00:20; Admin Dose 50 MG; Start 07/19/18 at 19:30 Lorazepam (Ativan) 1 mg Q4H PRN IV AGITATION/ANXIETY Last administered on 07/19/18 23:16; Admin Dose 1 MG; Start 07/19/18 at 22:30 Miscellaneous Information (Pending [facility] Order For Wound Care) This patient pedro... PRN PRN XX WOUND CARE; Start 07/20/18 at 01:30 Insulin Aspart (Novolog Insulin Pen) NOVOLOG *MODERATE* ALGORI... Q4 SC Last administered on 07/22/18at 00:34; Admin Dose 4 UNIT; Start 07/20/18 at 17:00 Immune Globulin (Carimune Nf) 40 gm DAILY IV ; Start 07/23/18 at 09:00; Status UNDANIELA JACKSON M.D. Jul 22, 2018 10:01
[2018-07-22] MEDS ORDERED: SOD CHLORIDE 0.9% 250 ML IV ONE (11:00)
--- NOTE | 2018-07-22 11:39 | CONS ---
Assessment/Plan Assessment/Plan Assessment/Plan (Daily) 1. Metabolic alkalosis due to prerenal azotemia 2. acute prerenal azotemia 3. ITP 4. severe thrombocytopenia 5. accelerated HTN Plan: pt seen and examined in tele floor, s/p Hematology evaluaiton, plan is ot rolo IGG today and IV deametbasone followed up by tapering prednisone Continue Hydralazine 50mg PO Q8 hr and MTP 50mg pO Q 8 hr Thanks for consultation , I will continue to follow up Consultation Date/Type/Reason Admit Date/Time Jul 19, 2018 at 18:40 Date of Consultation: Jul 22, 2018 Type of Consult NEPHROLOGY Reason for Consultation metabolic alkalosis, Prerenal azotemia Requesting Provider: NOE MINOR MD Date/Time of Note DATE: 07/22/18 TIME: 11:37 Hx of Present Illness 68 yo male with multiple medical problems including coronary artery disease, respiratory failure with trach with history of ITP. During his last admission to [facility] pt was noted to respond well to steroids. He was transferred to [facility] after regaining his counts. Bone marrow biopsy in September 2017 showing no obvious pat hology but was suggestive of perhaps peripheral plt destruction. PT again has severe thrombocytopenia now with 3K platelets. HE is also c/o headache On labs he was noted to have alkalosis with HCo3 34 and prerenal azotemia, renal pedro sbeen consulted for it.. Constitutional: poor po, other (headache ) Respiratory: cough Cardiovascular: no complaints Gastrointestinal: no complaints Genitourinary: no complaints Musculoskeletal: no complaints Skin: no complaints Neurologic: no complaints Endocrine: no complaints Lymphatic: no complaints Psychological: no complaints Immunologic: no complaints Past Medical History Medical History: coronary artery disease, high cholesterol, hypertension Home Meds Reported Medications Tramadol HCl (Tramadol HCl) 50 Mg Tablet, 50 MG PO Q6H PRN for PAIN LEVEL 7-10, #120 TAB 06/23/18 Hydralazine Hcl* (Hydralazine Hcl*) 50 Mg Tab, 50 MG PO Q8 for hypertension, #90 TAB 06/23/18 Gabapentin* (Neurontin*) 400 Mg Capsule, 400 MG PO Q8, #90 CAP 06/23/18 Insulin Isophan/Regular (Humulin 70/30) 100 Units/Ml Susp, 18 UNIT SC Q8, EA 06/23/18 Omeprazole* (Omeprazole*) 40 Mg Capsule.dr, 40 MG PO DAILY, #30 CAP 06/23/18 Metoprolol Tartrate* (Lopressor*) 50 Mg Tab, 50 MG PO Q8, #60 TAB 06/23/18 Atorvastatin Calcium* (Atorvastatin Calcium*) 20 Mg Tablet, 20 MG PO QHS, #30 TAB 06/23/18 Ondansetron Hcl* (Ondansetron Hcl*) 4 Mg Tablet, 4 MG PO Q4H PRN for NAUSEA AND OR VOMITING, TAB 11/11/17 Budesonide-Formoterol Fumarate* (Symbicort*) 160-4.5 Hfa.aer.ad, 1 PUFF INHALATION BID, #1 EACH 11/11/17 Sennosides* (Senna Lax*) 8.6 Mg Tablet, 1 TAB PO BID, TAB 11/11/17 Multivitamins* (Theragran*) 1 Tab Tab, 1 TAB PO DAILY, TAB 11/11/17 Isosorbide Dinitrate* (Isosorbide Dinitrate*) 10 Mg Tablet, 10 MG PO TID, TAB 11/11/17 Ascorbic Acid* (Vitamin C*) 500 Mg Capsule.sa, 500 MG PO DAILY, CAP 11/11/17 Pantoprazole* (Protonix*) 40 Mg Tablet.dr, 40 MG PO AC BREAKFAST, TAB 08/07/17 Apixaban* (Eliquis*) 5 Mg Tablet, 5 MG PO BID, TAB 08/07/17 Nitroglycerin* (Nitrostat*) 0.4 Mg Tab.subl, 0.4 MG SL Q5MIN PRN for CHEST PAIN, BOTTLE 05/19/17 Duloxetine Hcl* (Cymbalta*) 30 Mg Capsule.dr, 30 MG PO DAILY, CAP 05/19/17 Acetaminophen* (Acetaminophen*) 650 Mg Tablet, 650 MG PO Q6H PRN for MILD TO MODERATE PAIN, #30 TAB 03/18/17 Alprazolam* (Alprazolam*) 0.25 Mg Tablet, 0.25 MG PO TID PRN for ANXIETY, TAB 03/18/17 Ferrous Sulfate* (Ferrous Sulfate*) 325 Mg Tabec, 325 MG PO DAILY, TAB 03/18/17 Medications Current Medications IV Flush (NS 3 ml) 3 ml PER PROTOCOL IV ; Start 07/19/18 at 19:30 Ondansetron HCl (Zofran Inj) 4 mg Q6H PRN IV NAUSEA/VOMITING; Start 07/19/18 at 19:30 Acetaminophen (Tylenol Tab) 650 mg Q6H PRN PO .PAIN 1-3 OR TEMP Last administered on 07/20/18 10:01; Admin Dose 650 MG; Start 07/19/18 at 19:30 Morphine Sulfate (morphine) 2 mg Q4H PRN IV .PAIN 8-10 Last administered on 07/20/18 00:05; Admin Dose 2 MG; Start 07/19/18 at 19:30 Acetaminophen (Tylenol Tab) 650 mg Q6H PRN PO MILD TO MODERATE PAIN; Start 07/19/18 at 19:30 Alprazolam (Xanax) 0.25 mg TID PRN PO ANXIETY Last administered on 07/22/18 00:20; Admin Dose 0.25 MG; Start 07/19/18 at 19:30 Ascorbic Acid (Vitamin C) 500 mg DAILY PO Last administered on 07/22/18 09:54; Admin Dose 500 MG; Start 07/20/18 at 09:00 Atorvastatin Calcium (Lipitor) 20 mg QHS PO Last administered on 07/21/18 21:36; Admin Dose 20 MG; Start 07/19/18 at 21:00 Duloxetine HCl (Cymbalta) 30 mg DAILY PO Last administered on 07/22/18 09:54; Admin Dose 30 MG; Start 07/20/18 at 09:00 Ferrous Sulfate (Ferrous Sulfate (Ec)) 325 mg DAILY PO Last administered on 07/22/18 09:54; Admin Dose 325 MG; Start 07/20/18 at 09:00 Gabapentin (Neurontin) 400 mg Q8 PO Last administered on 07/22/18 06:02; Admin Dose 400 MG; Start 07/19/18 at 22:00 Hydralazine HCl (Apresoline) 50 mg Q8 PO Last administered on 07/21/18 21:37; Admin Dose 50 MG; Start 07/19/18 at 22:00 Isosorbide Dinitrate (Isordil) 10 mg TID PO Last administered on 07/21/18 21:37; Admin Dose 10 MG; Start 07/19/18 at 21:00 Metoprolol Tartrate (Lopressor) 50 mg Q8 PO Last administered on 07/22/18 06:02; Admin Dose 50 MG; Start 07/19/18 at 22:00 Multivitamins Therapeutic (Theragran) 1 tab DAILY PO Last administered on 07/22/18 09:54; Admin Dose 1 TAB; Start 07/20/18 at 09:00 Nitroglycerin (Nitroglycerin (Sl Tab) 0.4 Mg) 1 tab [id number] PRN SL CHEST PAIN; Start 07/19/18 at 19:30 Ondansetron HCl (Zofran Tab) 4 mg Q4H PRN PO NAUSEA AND/OR VOMITING; Start 07/19/18 at 19:30 Pantoprazole (Protonix Tab) 40 mg AC BREAKFAST PO Last administered on 07/22/18 06:02; Admin Dose 40 MG; Start 07/20/18 at 07:00 Senna (Senokot) 1 tab BID PO Last administered on 07/22/18 09:54; Admin Dose 1 TAB; Start 07/19/18 at 21:00 Tramadol HCl (Ultram) 50 mg Q6H PRN PO PAIN LEVEL 4-7 Last administered on 07/22/18 00:20; Admin Dose 50 MG; Start 07/19/18 at 19:30 Lorazepam (Ativan) 1 mg Q4H PRN IV AGITATION/ANXIETY Last administered on 07/19/18at 23:16; Admin Dose 1 MG; Start 07/19/18 at 22:30 Miscellaneous Information (Pending [facility] Order For Wound Care) This patient pedro... PRN PRN XX WOUND CARE; Start 07/20/18 at 01:30 Insulin Aspart (Novolog Insulin Pen) NOVOLOG *MODERATE* ALGORI... Q4 SC Last administered on 07/22/18at 10:25; Admin Dose 4 UNIT; Start 07/20/18 at 17:00 Acetaminophen (Tylenol Liquid) 650 mg Q24H NGT ; Start 07/22/18 at 12:30; Stop 07/23/18 at 12:31 Diphenhydramine HCl (Benadryl) 25 mg Q24H IV ; Start 07/22/18 at 12:30; Stop 07/23/18 at 12:31 Immune Globulin 200 ml @ 0 mls/hr Q24H IV ; Start 07/22/18 at 13:00; Stop 07/23/18 at 13:01 Dexamethasone 40 mg/Sodium Chloride 54 ml @ 108 mls/hr Q24H IV ; Start 07/22/18 at 12:00; Stop 07/25/18 at 12:29 Sodium Chloride 250 ml @ 250 mls/hr Q1H ONCE IV Last administered on 07/22/18at 11:02; Admin Dose 250 MLS/HR; Start 07/22/18 at 11:00; Stop 07/22/18 at 11:59 Allergies: Coded Allergies: ciprofloxacin (Verified Allergy, Mild, ITCHINESS, RASH , 02/27/18) Penicillins (Verified Allergy, Unknown, 02/27/18) garlic (Verified Allergy, Unknown, 02/27/18) STOMACH UPSET morphine (Verified Allergy, Unknown, 02/27/18) povidone-iodine (Verified Allergy, Unknown, RASH, 02/27/18) soap (Verified Allergy, Unknown, RASH, 02/27/18) Past Surgical History Past Surgical Hx: other Social History Alcohol Use: none Smoking Status: Unknown if ever smoked Drug Use: none Exam/Review of Systems Exam Vitals Vital Signs Date Temp Pulse Resp B/P (MAP) Pulse Ox O2 O2 Flow FiO2 Time Delivery Rate 07/22/18 98.0 68 20 106/57 100 11:31 (73) 07/22/18 40 05:09 07/21/18 Mechanical 03:38 Ventilator Intake and Output 07/21/18 07/21/18 07/22/18 1515:00 23:00 07:00 IntakeIntake Total 1260 ml 1230 ml BalanceBalance 1260 ml 1230 ml Constitutional: alert Psych: no complaints Head: normocephalic Eyes: nl conjunctiva ENMT: nl external ears & nose Neck: supple Respiratory: clear to auscultation, normal air movement, diminished breath sounds Cardiovascular: regular rate and rhythm, nl pulses Gastrointestinal: soft, non-tender Musculoskeletal: nl extremities to inspection, muscle weakness, swelling Extremities: normal pulses 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, nl mental status, nl speech, nl strength Skin: nl turgor Lymph: nl lymph nodes Results Result Diagram: 07/22/18 0540 07/20/18 0538 Results 24hrs Laboratory Tests Test 07/21/18 12:51 07/21/18 16:53 07/21/18 21:31 07/22/18 00:30 Bedside Glucose 225 H 201 209 217 Test 07/22/18 05:37 07/22/18 05:40 07/22/18 08:58 07/22/18 11:14 Bedside Glucose 115 196 White Blood Count 6.7 Pending Red Blood Count 2.70 L Pending Hemoglobin 7.6 L Pending Hematocrit 24.2 L Pending Mean Corpuscular 89.6 Pending Volume Mean Corpuscular 28.1 L Pending Hemoglobin Mean Corpuscular 31.4 L Pending Hemoglobin Concent Red Cell 18.1 H Pending Distribution Width Platelet Count 3 #*L Pending Mean Platelet Pending Volume Immature 0.800 H Granulocytes % Neutrophils % Segmented 66 Neutrophils % (Manual) Band Neutrophils % 16 H (Manual) Lymphocytes % Lymphocytes % 11 L (Manual) Reactive 3 H Lymphocytes % (Manual) Monocytes % Monocytes % 4 (Manual) Eosinophils % Basophils % Nucleated Red 0.3 H Blood Cells % Immature 0.050 H Granulocytes # Neutrophils # Neutrophils # 4.5 (Manual) Band Neutrophils # 1.0 H Lymphocytes 0.7 L (Manual) Lymphocytes # Reactive 0.2 H Lymphocytes # Monocytes # Monocytes # 0.2 L (Manual) Eosinophils # Basophils # Nucleated Red Blood Cells # Platelet Estimate SIG DECREASED Giant Platelets 1 H Polychromasia 1+ Poikilocytosis 1+ Anisocytosis 3+ Microcytosis 3+ Medications Medication Current Medications IV Flush (NS 3 ml) 3 ml PER PROTOCOL IV ; Start 07/19/18 at 19:30 Ondansetron HCl (Zofran Inj) 4 mg Q6H PRN IV NAUSEA/VOMITING; Start 07/19/18 at 19:30 Acetaminophen (Tylenol Tab) 650 mg Q6H PRN PO .PAIN 1-3 OR TEMP Last administered on 07/20/18at 10:01; Admin Dose 650 MG; Start 07/19/18 at 19:30 Morphine Sulfate (morphine) 2 mg Q4H PRN IV .PAIN 8-10 Last administered on 07/20/18at 00:05; Admin Dose 2 MG; Start 07/19/18 at 19:30 Acetaminophen (Tylenol Tab) 650 mg Q6H PRN PO MILD TO MODERATE PAIN; Start 07/19/18 at 19:30 Alprazolam (Xanax) 0.25 mg TID PRN PO ANXIETY Last administered on 07/22/18 00:20; Admin Dose 0.25 MG; Start 07/19/18 at 19:30 Ascorbic Acid (Vitamin C) 500 mg DAILY PO Last administered on 07/22/18 09:54; Admin Dose 500 MG; Start 07/20/18 at 09:00 Atorvastatin Calcium (Lipitor) 20 mg QHS PO Last administered on 07/21/18 21:36; Admin Dose 20 MG; Start 07/19/18 at 21:00 Duloxetine HCl (Cymbalta) 30 mg DAILY PO Last administered on 07/22/18 09:54; Admin Dose 30 MG; Start 07/20/18 at 09:00 Ferrous Sulfate (Ferrous Sulfate (Ec)) 325 mg DAILY PO Last administered on 07/22/18 09:54; Admin Dose 325 MG; Start 07/20/18 at 09:00 Gabapentin (Neurontin) 400 mg Q8 PO Last administered on 07/22/18 06:02; Admin Dose 400 MG; Start 07/19/18 at 22:00 Hydralazine HCl (Apresoline) 50 mg Q8 PO Last administered on 07/21/18 21:37; Admin Dose 50 MG; Start 07/19/18 at 22:00 Isosorbide Dinitrate (Isordil) 10 mg TID PO Last administered on 07/21/18 21:37; Admin Dose 10 MG; Start 07/19/18 at 21:00 Metoprolol Tartrate (Lopressor) 50 mg Q8 PO Last administered on 07/22/18 06:02; Admin Dose 50 MG; Start 07/19/18 at 22:00 Multivitamins Therapeutic (Theragran) 1 tab DAILY PO Last administered on 07/22/18 09:54; Admin Dose 1 TAB; Start 07/20/18 at 09:00 Nitroglycerin (Nitroglycerin (Sl Tab) 0.4 Mg) 1 tab [id number] PRN SL CHEST PAIN; Start 07/19/18 at 19:30 Ondansetron HCl (Zofran Tab) 4 mg Q4H PRN PO NAUSEA AND/OR VOMITING; Start 07/19/18 at 19:30 Pantoprazole (Protonix Tab) 40 mg AC BREAKFAST PO Last administered on 07/22/18 06:02; Admin Dose 40 MG; Start 07/20/18 at 07:00 Senna (Senokot) 1 tab BID PO Last administered on 07/22/18 09:54; Admin Dose 1 TAB; Start 07/19/18 at 21:00 Tramadol HCl (Ultram) 50 mg Q6H PRN PO PAIN LEVEL 4-7 Last administered on 07/22/18at 00:20; Admin Dose 50 MG; Start 07/19/18 at 19:30 Lorazepam (Ativan) 1 mg Q4H PRN IV AGITATION/ANXIETY Last administered on 07/19/18 23:16; Admin Dose 1 MG; Start 07/19/18 at 22:30 Miscellaneous Information (Pending [facility] Order For Wound Care) This patient pedro... PRN PRN XX WOUND CARE; Start 07/20/18 at 01:30 Insulin Aspart (Novolog Insulin Pen) NOVOLOG *MODERATE* ALGORI... Q4 SC Last administered on 07/22/18at 10:25; Admin Dose 4 UNIT; Start 07/20/18 at 17:00 Acetaminophen (Tylenol Liquid) 650 mg Q24H NGT ; Start 07/22/18 at 12:30; Stop 07/23/18 at 12:31 Diphenhydramine HCl (Benadryl) 25 mg Q24H IV ; Start 07/22/18 at 12:30; Stop 07/23/18 at 12:31 Immune Globulin 200 ml @ 0 mls/hr Q24H IV ; Start 07/22/18 at 13:00; Stop 07/23/18 at 13:01 Dexamethasone 40 mg/Sodium Chloride 54 ml @ 108 mls/hr Q24H IV ; Start 07/22/18 at 12:00; Stop 07/25/18 at 12:29 Sodium Chloride 250 ml @ 250 mls/hr Q1H ONCE IV Last administered on 07/22/18at 11:02; Admin Dose 250 MLS/HR; Start 07/22/18 at 11:00; Stop 07/22/18 at 11:59 OCTAVIO BOX MD Jul 22, 2018 11:39
[2018-07-22] MEDS: SOD CHLORIDE 0.9% IV SCH (12:02)
[2018-07-22] MEDS: DEXAMETHASONE IV SCH (12:02)
[2018-07-22] MEDS: LORAZEPAM 2 MG INJ IV PRN (12:55)
[2018-07-22] MEDS ORDERED: IMMUN GLOB G(IGG) 10% 200 ML IV SCH (13:00)
[2018-07-22] MEDS: DIPHENHYDRAMINE 50 MG INJ IV SCH (15:16)
[2018-07-22] MEDS: ACETAMINOPHEN 650MG/20.3ML CUP NGT SCH (15:16)
[2018-07-22] MEDS: ATORVASTATIN 20 MG TAB PO SCH (22:37)
[2018-07-22] MEDS: INSULIN GLARGINE [LANTus] (100 UNITS/ML) SYG SC SCH (22:54)
[2018-07-23] VITALS (26 sets, daily range): BP systolic 90–128; BP diastolic 57–81; PULSE 53–116; RESP 11–26
[2018-07-23] MEDS: INSULIN ASPART [NOVOLOG] 3 ML PEN SC SCH ×8 (02:59→22:55)
[2018-07-23] MEDS: GABAPENTIN 400 MG CAP PO SCH ×3 (06:04→22:12)
[2018-07-23] MEDS: METOPROLOL 50 MG TAB PO SCH ×3 (06:04→22:12)
[2018-07-23] MEDS: PANTOPRAZOLE (EC) 40 MG TAB PO SCH (06:07)
[2018-07-23] MEDS ORDERED: IMMUNE GLOBULIN (HUMAN) 6 GM INJ IV SCH (09:00)
[2018-07-23] MEDS: SENNA TAB PO SCH ×2 (10:49→22:10)
[2018-07-23] MEDS: ASCORBIC ACID 500 MG TAB PO SCH (10:50)
[2018-07-23] MEDS: MULTIVITAMINS THERAPEUTIC TAB PO SCH (10:50)
[2018-07-23] MEDS: DULOXETINE 30 MG CAP DR PO SCH (10:50)
[2018-07-23] MEDS: FERROUS SULFATE (EC) 325 MG TAB PO SCH (10:50)
[2018-07-23] MEDS: ISOSORBIDE DINITRATE 10 MG TAB PO SCH ×3 (10:52→22:11)
--- NOTE | 2018-07-23 12:02 | CONS ---
Assessment/Plan Assessment/Plan Assessment/Plan (Daily) 1. Metabolic alkalosis due to prerenal azotemia 2. acute prerenal azotemia 3. ITP 4. severe thrombocytopenia 5. accelerated HTN Plan: Continue Hydralazine 50mg PO Q8 hr and MTP 50mg pO Q 8 hr BUN/Cr normal, HCo3 improved to 30 will follow up Consultation Date/Type/Reason Admit Date/Time Jul 19, 2018 at 18:40 Initial Consult Date 07/22/18 Type of Consult NEPHROLOGY Requesting Provider: NOE MINOR MD Date/Time of Note DATE: 07/23/18 TIME: 12:02 Exam/Review of Systems Exam Vitals Vital Signs Date Temp Pulse Resp B/P (MAP) Pulse Ox O2 O2 Flow FiO2 Time Delivery Rate 07/23/18 98.0 78 20 128/66 100 11:03 (86) 07/23/18 35 05:47 07/21/18 Mechanical 03:38 Ventilator Intake and Output 07/22/18 07/22/18 07/23/18 1515:00 23:00 07:00 IntakeIntake Total 54 ml 1450 ml BalanceBalance 54 ml 1450 ml Exam Constitutional: alert, awake Respiratory: clear to auscultation, normal air movement, diminished breath sounds Cardiovascular: regular rate and rhythm, nl pulses Gastrointestinal: soft, non-tender Musculoskeletal: nl extremities to inspection, muscle weakness, swelling Extremities: normal pulses 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 intact, nl mental status, nl speech, nl strength Skin: nl turgor Lymph: nl lymph nodes Results Result Diagram: 07/23/18 0543 07/23/18 0543 Results 24hrs Laboratory Tests Test 07/22/18 12:04 07/22/18 13:34 07/22/18 15:27 07/22/18 17:28 Blood Gas Blood arterial Specimen Source Arterial Blood 07/22/2018 1:10: Date Drawn 52 PM Arterial Blood 7.513 H pH (Temp corrected) Arterial Blood 41.4 pCO2 (Temp correct) Arterial Blood 118.2 H pO2 (Temp corrected) Arterial Blood 32.5 H HCO3 Arterial Blood 8.8 H Base Excess Arterial Blood 98.1 H Oxygen Saturatio n Edwardo Test ACCEPTAB Arterial Blood Right Radial Gas Puncture Site Arterial 0.4 Blood Carboxyhem oglobin Arterial Blood 0.4 Methemoglobin Blood Gas A-a O2 119.4 H Differential Oxyhemoglobin 97.3 Percent Blood Gas 37.0 Temperature Blood Gas VENT - AC Modality FiO2 40.0 Blood Gas CM Notified Whom Blood Gas 07/22/2018 1:17: Notified Time 02 PM Bedside Glucose 280 H 283 H 285 H Test 07/22/18 22:20 07/23/18 02:34 07/23/18 05:43 07/23/18 06:00 Bedside Glucose 277 H 344 H 301 H White Blood 4.3 #L Count Red Blood Count 2.77 L Hemoglobin 7.7 L Hematocrit 24.8 L Mean Corpuscular 89.5 Volume Mean Corpuscular 27.8 L Hemoglobin Mean Corpuscular 31.0 L Hemoglobin Mary nt Red Cell 17.3 H Distribution Width Platelet Count 11 #*L Mean Platelet Volume Immature 0.500 H Granulocytes % Neutrophils % Segmented 80 H Neutrophils % (Manual) Band Neutrophils 17 H % (Manual) Lymphocytes % Lymphocytes % 2 L (Manual) Monocytes % Monocytes % 1 (Manual) Eosinophils % Basophils % Nucleated Red 0.0 Blood Cells % Immature 0.020 Granulocytes # Neutrophils # Neutrophils # 3.5 (Manual) Band Neutrophils 0.7 H # Lymphocytes 0.0 L (Manual) Lymphocytes # Monocytes # Monocytes # 0.0 L (Manual) Eosinophils # Basophils # Nucleated Red Blood Cells # Platelet SIG DECREASED Estimate Polychromasia 1+ Anisocytosis 2+ Microcytosis 1+ Sodium Level 137 Potassium Level 4.6 Chloride Level 98 Carbon Dioxide 30 Level Anion Gap 9 Blood Urea 93 H Nitrogen Creatinine 0.89 Est Glomerular > 60 Filtrat Rate mL/min Glucose Level 281 H Calcium Level 7.9 L Medications Medication Current Medications IV Flush (NS 3 ml) 3 ml PER PROTOCOL IV ; Start 07/19/18 at 19:30 Ondansetron HCl (Zofran Inj) 4 mg Q6H PRN IV NAUSEA/VOMITING; Start 07/19/18 at 19:30 Acetaminophen (Tylenol Tab) 650 mg Q6H PRN PO .PAIN 1-3 OR TEMP Last administered on 07/20/18at 10:01; Admin Dose 650 MG; Start 07/19/18 at 19:30 Morphine Sulfate (morphine) 2 mg Q4H PRN IV .PAIN 8-10 Last administered on 07/20/18at 00:05; Admin Dose 2 MG; Start 07/19/18 at 19:30 Acetaminophen (Tylenol Tab) 650 mg Q6H PRN PO MILD TO MODERATE PAIN; Start 07/19/18 at 19:30 Ascorbic Acid (Vitamin C) 500 mg DAILY PO Last administered on 07/23/18 10:50; Admin Dose 500 MG; Start 07/20/18 at 09:00 Atorvastatin Calcium (Lipitor) 20 mg QHS PO Last administered on 07/22/18 22:37; Admin Dose 20 MG; Start 07/19/18 at 21:00 Duloxetine HCl (Cymbalta) 30 mg DAILY PO Last administered on 07/23/18 10:50; Admin Dose 30 MG; Start 07/20/18 at 09:00 Ferrous Sulfate (Ferrous Sulfate (Ec)) 325 mg DAILY PO Last administered on 07/23/18 10:50; Admin Dose 325 MG; Start 07/20/18 at 09:00 Gabapentin (Neurontin) 400 mg Q8 PO Last administered on 07/23/18 06:04; Admin Dose 400 MG; Start 07/19/18 at 22:00 Hydralazine HCl (Apresoline) 50 mg Q8 PO Last administered on 07/23/18 06:04; Admin Dose 50 MG; Start 07/19/18 at 22:00 Isosorbide Dinitrate (Isordil) 10 mg TID PO Last administered on 07/23/18 10:52; Admin Dose 10 MG; Start 07/19/18 at 21:00 Metoprolol Tartrate (Lopressor) 50 mg Q8 PO Last administered on 07/23/18 06:04; Admin Dose 50 MG; Start 07/19/18 at 22:00 Multivitamins Therapeutic (Theragran) 1 tab DAILY PO Last administered on 07/23/18 10:50; Admin Dose 1 TAB; Start 07/20/18 at 09:00 Nitroglycerin (Nitroglycerin (Sl Tab) 0.4 Mg) 1 tab [id number] PRN SL CHEST PAIN; Start 07/19/18 at 19:30 Ondansetron HCl (Zofran Tab) 4 mg Q4H PRN PO NAUSEA AND/OR VOMITING; Start 07/19/18 at 19:30 Pantoprazole (Protonix Tab) 40 mg AC BREAKFAST PO Last administered on 4/24/19at 06:07; Admin Dose 40 MG; Start 07/20/18 at 07:00 Senna (Senokot) 1 tab BID PO Last administered on 07/23/18 10:49; Admin Dose 1 TAB; Start 07/19/18 at 21:00 Tramadol HCl (Ultram) 50 mg Q6H PRN PO PAIN LEVEL 4-7 Last administered on 07/22/18 00:20; Admin Dose 50 MG; Start 07/19/18 at 19:30 Miscellaneous Information (Pending [facility] Order For Wound Care) This patient pedro... PRN PRN XX WOUND CARE; Start 07/20/18 at 01:30 Insulin Aspart (Novolog Insulin Pen) NOVOLOG *MODERATE* ALGORI... Q4 SC Last administered on 07/23/18 11:09; Admin Dose 6 UNIT; Start 07/20/18 at 17:00 Acetaminophen (Tylenol Liquid) 650 mg Q24H NGT Last administered on 07/22/18 15:16; Admin Dose 650 MG; Start 07/22/18 at 12:30; Stop 07/23/18 at 12:31 Diphenhydramine HCl (Benadryl) 25 mg Q24H IV Last administered on 07/22/18 15:16; Admin Dose 25 MG; Start 07/22/18 at 12:30; Stop 07/23/18 at 12:31 Dexamethasone 40 mg/Sodium Chloride 54 ml @ 108 mls/hr Q24H IV Last administered on 07/22/18at 12:02; Admin Dose 108 MLS/HR; Start 07/22/18 at 12:00; Stop 07/25/18 at 12:29 Insulin Glargine (Lantus) 10 units DAILY@2000 SC Last administered on 07/22/18at 22:54; Admin Dose 10 UNITS; Start 07/22/18 at 20:00 Insulin Aspart (Novolog Insulin Pen) 10 unit BID SC Last administered on 07/23/18at 11:08; Admin Dose 10 UNIT; Start 07/22/18 at 14:00 Lorazepam (Ativan) 0.5 mg Q6 PRN IV AGITATION/ANXIETY; Start 07/22/18 at 17:00 Immune Globulin 400 ml @ 0 mls/hr Q24H IV ; Start 07/23/18 at 13:00; Stop 07/23/18 at 13:01 OCTAVIO BOX MD Jul 23, 2018 12:02
[2018-07-23] MEDS ORDERED: IMMUNE GLOBUL G/GLY/IGA AVG 46 400 ML IV SCH (13:00)
[2018-07-23] MEDS ORDERED: IMMUN GLOB 10% IV SCH (13:00)
--- NOTE | 2018-07-23 13:13 | CONS ---
Assessment/Plan Assessment/Plan Hospital Course (Demo Recall) #ITP -diagnosed during the last admission, he had response to steroids and bone marrow bx consistent with peripheral destruction -past labs reveal + TERESE, negative HIT ab -given his platelet count of only 3K , he was started on Dexamethasone 40mg IV x 4 days to be followed by a slow prednisone steroid taper, once dex completed transition to Prednisone 1mg/kg daily with slow taper -will also given IVIG 40 grams x 2 days -if patient does not respond will need to consider a course of Rituxan therapy, or other tx such as promacta or n plate Consultation Date/Type/Reason Admit Date/Time Jul 19, 2018 at 18:40 Initial Consult Date 07/22/18 Requesting Provider: NOE MINOR MD Date/Time of Note DATE: 07/23/18 TIME: 13:13 24 HR Interval Summary Free Text/Dictation plt count up to 11K today Exam/Review of Systems Exam Vitals Vital Signs Date Temp Pulse Resp B/P (MAP) Pulse Ox O2 O2 Flow FiO2 Time Delivery Rate 07/23/18 98 12:45 07/23/18 98.0 20 128/66 100 11:03 (86) 07/23/18 35 05:47 07/21/18 Mechanical 03:38 Ventilator Intake and Output 07/22/18 07/22/18 07/23/18 1515:00 23:00 07:00 IntakeIntake Total 54 ml 1450 ml BalanceBalance 54 ml 1450 ml Results Result Diagram: 07/23/18 0543 07/23/18 0543 Results 24hrs Laboratory Tests Test 07/22/18 13:34 07/22/18 15:27 07/22/18 17:28 07/22/18 22:20 Bedside Glucose 280 H 283 H 285 H 277 H Test 07/23/18 02:34 07/23/18 05:43 07/23/18 06:00 07/23/18 11:01 Bedside Glucose 344 H 301 H 253 H White Blood Count 4.3 #L Red Blood Count 2.77 L Hemoglobin 7.7 L Hematocrit 24.8 L Mean Corpuscular 89.5 Volume Mean Corpuscular 27.8 L Hemoglobin Mean Corpuscular 31.0 L Hemoglobin Concent Red Cell 17.3 H Distribution Width Platelet Count 11 #*L Mean Platelet Volume Immature 0.500 H Granulocytes % Neutrophils % Segmented 80 H Neutrophils % (Manual) Band Neutrophils % 17 H (Manual) Lymphocytes % Lymphocytes % 2 L (Manual) Monocytes % Monocytes % 1 (Manual) Eosinophils % Basophils % Nucleated Red 0.0 Blood Cells % Immature 0.020 Granulocytes # Neutrophils # Neutrophils # 3.5 (Manual) Band Neutrophils # 0.7 H Lymphocytes 0.0 L (Manual) Lymphocytes # Monocytes # Monocytes # 0.0 L (Manual) Eosinophils # Basophils # Nucleated Red Blood Cells # Platelet Estimate SIG DECREASED Polychromasia 1+ Anisocytosis 2+ Microcytosis 1+ Sodium Level 137 Potassium Level 4.6 Chloride Level 98 Carbon Dioxide 30 Level Anion Gap 9 Blood Urea 93 H Nitrogen Creatinine 0.89 Est Glomerular > 60 Filtrat Rate mL/min Glucose Level 281 H Calcium Level 7.9 L Medications Medication Current Medications IV Flush (NS 3 ml) 3 ml PER PROTOCOL IV ; Start 07/19/18 at 19:30 Ondansetron HCl (Zofran Inj) 4 mg Q6H PRN IV NAUSEA/VOMITING; Start 07/19/18 at 19:30 Acetaminophen (Tylenol Tab) 650 mg Q6H PRN PO .PAIN 1-3 OR TEMP Last administered on 07/20/18 10:01; Admin Dose 650 MG; Start 07/19/18 at 19:30 Morphine Sulfate (morphine) 2 mg Q4H PRN IV .PAIN 8-10 Last administered on 07/20/18at 00:05; Admin Dose 2 MG; Start 07/19/18 at 19:30 Acetaminophen (Tylenol Tab) 650 mg Q6H PRN PO MILD TO MODERATE PAIN; Start 07/19/18 at 19:30 Ascorbic Acid (Vitamin C) 500 mg DAILY PO Last administered on 07/23/18 10:50; Admin Dose 500 MG; Start 07/20/18 at 09:00 Atorvastatin Calcium (Lipitor) 20 mg QHS PO Last administered on 07/22/18 22:37; Admin Dose 20 MG; Start 07/19/18 at 21:00 Duloxetine HCl (Cymbalta) 30 mg DAILY PO Last administered on 07/23/18 10:50; Admin Dose 30 MG; Start 07/20/18 at 09:00 Ferrous Sulfate (Ferrous Sulfate (Ec)) 325 mg DAILY PO Last administered on 07/23/18 10:50; Admin Dose 325 MG; Start 07/20/18 at 09:00 Gabapentin (Neurontin) 400 mg Q8 PO Last administered on 07/23/18 06:04; Admin Dose 400 MG; Start 07/19/18 at 22:00 Hydralazine HCl (Apresoline) 50 mg Q8 PO Last administered on 07/23/18 06:04; Admin Dose 50 MG; Start 07/19/18 at 22:00 Isosorbide Dinitrate (Isordil) 10 mg TID PO Last administered on 07/23/18 10:52; Admin Dose 10 MG; Start 07/19/18 at 21:00 Metoprolol Tartrate (Lopressor) 50 mg Q8 PO Last administered on 07/23/18 06:04; Admin Dose 50 MG; Start 07/19/18 at 22:00 Multivitamins Therapeutic (Theragran) 1 tab DAILY PO Last administered on 07/23/18 10:50; Admin Dose 1 TAB; Start 07/20/18 at 09:00 Nitroglycerin (Nitroglycerin (Sl Tab) 0.4 Mg) 1 tab [id number] PRN SL CHEST PAIN; Start 07/19/18 at 19:30 Ondansetron HCl (Zofran Tab) 4 mg Q4H PRN PO NAUSEA AND/OR VOMITING; Start 07/19/18 at 19:30 Pantoprazole (Protonix Tab) 40 mg AC BREAKFAST PO Last administered on 07/23/18 06:07; Admin Dose 40 MG; Start 07/20/18 at 07:00 Senna (Senokot) 1 tab BID PO Last administered on 07/23/18 10:49; Admin Dose 1 TAB; Start 07/19/18 at 21:00 Tramadol HCl (Ultram) 50 mg Q6H PRN PO PAIN LEVEL 4-7 Last administered on 07/22/18 00:20; Admin Dose 50 MG; Start 07/19/18 at 19:30 Miscellaneous Information (Pending [facility] Order For Wound Care) This patient pedro... PRN PRN XX WOUND CARE; Start 07/20/18 at 01:30 Insulin Aspart (Novolog Insulin Pen) NOVOLOG *MODERATE* ALGORI... Q4 SC Last administered on 07/23/18 11:09; Admin Dose 6 UNIT; Start 07/20/18 at 17:00 Dexamethasone 40 mg/Sodium Chloride 54 ml @ 108 mls/hr Q24H IV Last administered on 07/22/18at 12:02; Admin Dose 108 MLS/HR; Start 07/22/18 at 12:00; Stop 07/25/18 at 12:29 Insulin Glargine (Lantus) 10 units DAILY@2000 SC Last administered on 07/22/18at 22:54; Admin Dose 10 UNITS; Start 07/22/18 at 20:00 Insulin Aspart (Novolog Insulin Pen) 10 unit BID SC Last administered on 07/23/18at 11:08; Admin Dose 10 UNIT; Start 07/22/18 at 14:00 Lorazepam (Ativan) 0.5 mg Q6 PRN IV AGITATION/ANXIETY; Start 07/22/18 at 17:00 BART MONTOYA Jul 23, 2018 13:13
[2018-07-23] MEDS: ACETAMINOPHEN 650MG/20.3ML CUP NGT SCH (13:20)
[2018-07-23] MEDS: DIPHENHYDRAMINE 50 MG INJ IV SCH (13:20)
--- NOTE | 2018-07-23 13:57 | CONS ---
DATE OF ADMISSION: 07/19/2018 DATE OF CONSULTATION: TYPE OF CONSULTATION: Pulmonary. REASON FOR CONSULTATION: Ventilator management. Thank you, Dr. Villatoro, for this consultation. HISTORY OF PRESENT ILLNESS: This is a 68-year-old vent-dependent respiratory failure patient transfe rred from [facility] facility for low platelets, anemia and significant thrombocytopenia. PAST MEDICAL HISTORY: Includes ITP, vent-dependent respiratory failure, dysphagia with G-tube, coron laurie artery disease with pacemaker placement. MEDICATIONS: Per chart. ALLERGIES 1. PENICILLIN. 2. CIPRO. 3. MORPHINE. SOCIAL HISTORY: Nonsmoker, no alcohol, no history of drug use. FAMILY HISTORY: Noncontributory. SYSTEMS REVIEW: A 12-point review of systems was negative other than that mentioned above. PHYSICAL EXAMINATION: GENERAL: Chronically ill appearing gentleman, appears comfortable at rest, in no acute distress. VITAL SIGNS: Currently afebrile, pulse is 78, blood pressure 128/66, O2 saturation 96%, FiO2 of 35%. NECK: Supple. Trach site is clean and intact. CARDIAC: S1, S2. No added sounds or murmurs. CHEST: Diminished air entry bilaterally. ABDOMEN: Soft, nontender. No guarding or rebound. EXTREMITIES: No cyanosis, clubbing or edema. NEUROLOGIC: Generalized weakness. LABORATORY DATA: White count 4.6, hemoglobin 7.7, platelets of 11. Chemistry within normal limits. IMPRESSION AND PLAN: 1. Ventilator-dependent respiratory failure. 2. 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 3. Dysphagia with G-tube. PLAN: 1. Continue steroids for immunosuppressive therapy for peripheral platelet destruction. 2. Continue vent support. 3. Tube feeding as tolerated. 4. Cardiac recommendations. Dictated By: AMOS CLEMENTS MD SV/NTS Conf#: [id number] DID#: [id number] CC: NOE VILLATORO MD;*EndCC*
[2018-07-23] MEDS: SOD CHLORIDE 0.9% IV SCH (14:19)
[2018-07-23] MEDS: DEXAMETHASONE IV SCH (14:19)
--- NOTE | 2018-07-23 15:29 | CONS ---
Assessment/Plan Assessment/Plan Hospital Course (Demo Recall) IMPRESSION: 1. Permanent pacemaker with proper function at this time, primarily AV pacing. No signs of dysfunction at this time. 2. History of paroxysmal atrial fibrillation and atrial flutter, had been off anticoagulation due to severe thrombocytopenia, has been started on anticoagulation, which was stopped at this time due to severe thrombocytopenia. 3. Hypertension. 4. Dyslipidemia. 5. History of aortic valve replacement, bioprosthesis in 06/2017. 6. History of coronary artery disease, status post coronary artery bypass graft surgery in 06/2017 using AHUJA to LAD. 7. 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 8. Diabetes mellitus. 9. Dysphagia, status post G-tube. 10. Chronic respiratory failure, status post tracheostomy. Recc: -Tele -Continue BB/hydralazine -Continue isordil -Holding antiplatelet/anticoagulation secondary to severe thrombocytopenia -Continue statin -Follow volume status closely Consultation Date/Type/Reason Admit Date/Time Jul 19, 2018 at 18:40 Initial Consult Date 07/22/18 Type of Consult Cardiology Reason for Consultation CHF Requesting Provider: NOE MINOR MD Date/Time of Note DATE: 07/23/18 TIME: 15:25 Exam/Review of Systems Vital Signs Vitals Vital Signs Date Temp Pulse Resp B/P (MAP) Pulse Ox O2 O2 Flow FiO2 Time Delivery Rate 07/23/18 98 12:45 07/23/18 98.0 20 128/66 100 11:03 (86) 07/23/18 35 05:47 07/21/18 Mechanical 03:38 Ventilator Intake and Output 07/22/18 07/22/18 07/23/18 1515:00 23:00 07:00 IntakeIntake Total 54 ml 1450 ml BalanceBalance 54 ml 1450 ml Exam Exam Review of Systems: CONSTITUTIONAL: No fevers, chills. PULMONARY: No sob CARDIOVASCULAR: No chest pain/palpitations GASTROINTESTINAL: No nausea/vomiting. GENITOURINARY: No hematuria/dysuria. MUSCULOSKELETAL: No myagias/arthalgias. PSYCHIATRIC: The patient denies depression. NEUROLOGIC: lethargic Constitutional: other (sleeping, arousable) Psych: no complaints Head: normocephalic ENMT: mucosa pink and moist Neck: supple, jvd (9 cm water), other (trached) Respiratory: other (upper airway rhocherous sounds) Cardiovascular: regular rate and rhythm Gastrointestinal: soft, non-tender Musculoskeletal: muscle tone (normal) Extremities: edema (none) Labs Result Diagram: 07/23/18 0543 07/23/18 0543 Results 24hrs Laboratory Tests Test 07/22/18 15:27 07/22/18 17:28 07/22/18 22:20 07/23/18 02:34 Bedside Glucose 283 H 285 H 277 H 344 H Test 07/23/18 05:43 07/23/18 06:00 07/23/18 11:01 07/23/18 13:19 White Blood Count 4.3 #L Red Blood Count 2.77 L Hemoglobin 7.7 L Hematocrit 24.8 L Mean Corpuscular 89.5 Volume Mean Corpuscular 27.8 L Hemoglobin Mean Corpuscular 31.0 L Hemoglobin Concent Red Cell 17.3 H Distribution Width Platelet Count 11 #*L Mean Platelet Volume Immature 0.500 H Granulocytes % Neutrophils % Segmented 80 H Neutrophils % (Manual) Band Neutrophils % 17 H (Manual) Lymphocytes % Lymphocytes % 2 L (Manual) Monocytes % Monocytes % 1 (Manual) Eosinophils % Basophils % Nucleated Red 0.0 Blood Cells % Immature 0.020 Granulocytes # Neutrophils # Neutrophils # 3.5 (Manual) Band Neutrophils # 0.7 H Lymphocytes 0.0 L (Manual) Lymphocytes # Monocytes # Monocytes # 0.0 L (Manual) Eosinophils # Basophils # Nucleated Red Blood Cells # Platelet Estimate SIG DECREASED Polychromasia 1+ Anisocytosis 2+ Microcytosis 1+ Sodium Level 137 Potassium Level 4.6 Chloride Level 98 Carbon Dioxide 30 Level Anion Gap 9 Blood Urea 93 H Nitrogen Creatinine 0.89 Est Glomerular > 60 Filtrat Rate mL/min Glucose Level 281 H Calcium Level 7.9 L Bedside Glucose 301 H 253 H 245 H Medications Medications Current Medications IV Flush (NS 3 ml) 3 ml PER PROTOCOL IV ; Start 07/19/18 at 19:30 Ondansetron HCl (Zofran Inj) 4 mg Q6H PRN IV NAUSEA/VOMITING; Start 07/19/18 at 19:30 Acetaminophen (Tylenol Tab) 650 mg Q6H PRN PO .PAIN 1-3 OR TEMP Last administered on 07/20/18at 10:01; Admin Dose 650 MG; Start 07/19/18 at 19:30 Morphine Sulfate (morphine) 2 mg Q4H PRN IV .PAIN 8-10 Last administered on 07/20/18 00:05; Admin Dose 2 MG; Start 07/19/18 at 19:30 Acetaminophen (Tylenol Tab) 650 mg Q6H PRN PO MILD TO MODERATE PAIN; Start 07/19/18 at 19:30 Ascorbic Acid (Vitamin C) 500 mg DAILY PO Last administered on 07/23/18 10:50; Admin Dose 500 MG; Start 07/20/18 at 09:00 Atorvastatin Calcium (Lipitor) 20 mg QHS PO Last administered on 07/22/18 22:37; Admin Dose 20 MG; Start 07/19/18 at 21:00 Duloxetine HCl (Cymbalta) 30 mg DAILY PO Last administered on 07/23/18 10:50; Admin Dose 30 MG; Start 07/20/18 at 09:00 Ferrous Sulfate (Ferrous Sulfate (Ec)) 325 mg DAILY PO Last administered on 07/23/18 10:50; Admin Dose 325 MG; Start 07/20/18 at 09:00 Gabapentin (Neurontin) 400 mg Q8 PO Last administered on 07/23/18 13:21; Admin Dose 400 MG; Start 07/19/18 at 22:00 Hydralazine HCl (Apresoline) 50 mg Q8 PO Last administered on 07/23/18 13:22; Admin Dose 50 MG; Start 07/19/18 at 22:00 Isosorbide Dinitrate (Isordil) 10 mg TID PO Last administered on 07/23/18 13:21; Admin Dose 10 MG; Start 07/19/18 at 21:00 Metoprolol Tartrate (Lopressor) 50 mg Q8 PO Last administered on 07/23/18 13:21; Admin Dose 50 MG; Start 07/19/18 at 22:00 Multivitamins Therapeutic (Theragran) 1 tab DAILY PO Last administered on 07/23/18 10:50; Admin Dose 1 TAB; Start 07/20/18 at 09:00 Nitroglycerin (Nitroglycerin (Sl Tab) 0.4 Mg) 1 tab [id number] PRN SL CHEST PAIN; Start 07/19/18 at 19:30 Ondansetron HCl (Zofran Tab) 4 mg Q4H PRN PO NAUSEA AND/OR VOMITING; Start 07/19/18 at 19:30 Pantoprazole (Protonix Tab) 40 mg AC BREAKFAST PO Last administered on 07/23/18 06:07; Admin Dose 40 MG; Start 07/20/18 at 07:00 Senna (Senokot) 1 tab BID PO Last administered on 07/23/18 10:49; Admin Dose 1 TAB; Start 07/19/18 at 21:00 Tramadol HCl (Ultram) 50 mg Q6H PRN PO PAIN LEVEL 4-7 Last administered on 07/22/18 00:20; Admin Dose 50 MG; Start 07/19/18 at 19:30 Miscellaneous Information (Pending [facility] Order For Wound Care) This patient pedro... PRN PRN XX WOUND CARE; Start 07/20/18 at 01:30 Insulin Aspart (Novolog Insulin Pen) NOVOLOG *MODERATE* ALGORI... Q4 SC Last administered on 07/23/18at 13:55; Admin Dose 6 UNIT; Start 07/20/18 at 17:00 Dexamethasone 40 mg/Sodium Chloride 54 ml @ 108 mls/hr Q24H IV Last administered on 07/23/18 14:19; Admin Dose 108 MLS/HR; Start 07/22/18 at 12:00; Stop 07/25/18 at 12:29 Insulin Glargine (Lantus) 10 units DAILY@2000 SC Last administered on 07/22/18at 22:54; Admin Dose 10 UNITS; Start 07/22/18 at 20:00 Insulin Aspart (Novolog Insulin Pen) 10 unit BID SC Last administered on 07/23/18at 11:08; Admin Dose 10 UNIT; Start 07/22/18 at 14:00 Lorazepam (Ativan) 0.5 mg Q6 PRN IV AGITATION/ANXIETY; Start 07/22/18 at 17:00 Immune Globulin 400 ml @ 0 mls/hr Q24H IV ; Start 07/23/18 at 13:00; Stop at 16:00 RODGER MIRELES Jul 23, 2018 15:29
--- NOTE | 2018-07-23 18:31 | PN ---
Date/Time of Note Date/Time of Note DATE: 07/23/18 TIME: 18:25 Assessment/Plan VTE Prophylaxis Risk score (from [facility])>0 risk: 7 SCD applied (from [facility]): No SCD contraindicated: other Pharmacological prophylaxis: other Pharm contraindication: other Lines/Catheters IV C[facility]ter Type (from [facility] Mid Line Central line still needed: Yes Urinary Cath still in place: No Assessment/Plan Assessment/Plan -Severe thrombocytopenia secondary to ITP; platelets 3 - s/p Decadron and IVIG. Pt continued on Prednisone. - per hematology consultation. -VDRF with tracheostomy on 02/19/18. - per pulmonary - Azotemia - cardiology consult appreciated - monitor renal functions -Hx of Atrial fibrillation and atrial flutter. - unable to tolerate anticoagulation due to severe thrombocytopenia. 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 BS elevated - Continue Lantus and NovoLog. - per Endo consult -Anemia, monitor H&H. - Dysphagia -SP PEG placement on 02/19/18. -Colostomy -Bilateral BKA -Major depressive disorder -Hx of Stage III sacral decubitus ulcer Further recommendations based on clinical course. Plan of care discussed with Dr. Villatoro. Result Diagram: 07/23/1843 07/23/18 0543 Results 24hrs Laboratory Tests Test 07/22/18 22:20 07/23/18 02:34 07/23/18 05:43 07/23/18 06:00 Bedside Glucose 277 H 344 H 301 H White Blood Count 4.3 #L Red Blood Count 2.77 L Hemoglobin 7.7 L Hematocrit 24.8 L Mean Corpuscular 89.5 Volume Mean Corpuscular 27.8 L Hemoglobin Mean Corpuscular 31.0 L Hemoglobin Concent Red Cell 17.3 H Distribution Width Platelet Count 11 #*L Mean Platelet Volume Immature 0.500 H Granulocytes % Neutrophils % Segmented 80 H Neutrophils % (Manual) Band Neutrophils % 17 H (Manual) Lymphocytes % Lymphocytes % 2 L (Manual) Monocytes % Monocytes % 1 (Manual) Eosinophils % Basophils % Nucleated Red 0.0 Blood Cells % Immature 0.020 Granulocytes # Neutrophils # Neutrophils # 3.5 (Manual) Band Neutrophils # 0.7 H Lymphocytes 0.0 L (Manual) Lymphocytes # Monocytes # Monocytes # 0.0 L (Manual) Eosinophils # Basophils # Nucleated Red Blood Cells # Platelet Estimate SIG DECREASED Polychromasia 1+ Anisocytosis 2+ Microcytosis 1+ Sodium Level 137 Potassium Level 4.6 Chloride Level 98 Carbon Dioxide 30 Level Anion Gap 9 Blood Urea 93 H Nitrogen Creatinine 0.89 Est Glomerular > 60 Filtrat Rate mL/min Glucose Level 281 H Calcium Level 7.9 L Test 07/23/18 11:01 07/23/18 13:19 07/23/18 17:48 Bedside Glucose 253 H 245 H 241 H Subjective 24 Hr Interval Summary Free Text/Dictation 07/22/2018 Entry -Afebrile - Hypotensive On IV bolos Subjective hx not possible: pt non-verbal Constitutional: requiring O2 Musculoskeletal: other Exam/Review of Systems Exam Vitals Vital Signs Date Temp Pulse Resp B/P (MAP) Pulse Ox O2 O2 Flow FiO2 Time Delivery Rate 07/23/18 98.2 101 20 105/77 100 17:55 (86) 07/23/18 30 17:44 07/21/18 Mechanical 03:38 Ventilator Intake and Output 07/22/18 07/22/18 07/23/18 1515:00 23:00 07:00 IntakeIntake Total 54 ml 1450 ml BalanceBalance 54 ml 1450 ml Constitutional: alert, non-verbal, frail Psych: nl mood/affect Eyes: nl lids, nl sclera ENMT: nl external ears & nose Neck: non-tender Respiratory: diminished breath sounds Cardiovascular: nl pulses, other (s1s2) Gastrointestinal: soft, non-tender, other (gt intact; colostomy intact) Musculoskeletal: muscle weakness, other (ALHAJI BKA) Neurological: confused Skin: other (decub) Lymph: nontender Results Results 24hrs Laboratory Tests Test 07/22/18 22:20 07/23/18 02:34 07/23/18 05:43 07/23/18 06:00 Bedside Glucose 277 H 344 H 301 H White Blood Count 4.3 #L Red Blood Count 2.77 L Hemoglobin 7.7 L Hematocrit 24.8 L Mean Corpuscular 89.5 Volume Mean Corpuscular 27.8 L Hemoglobin Mean Corpuscular 31.0 L Hemoglobin Concent Red Cell 17.3 H Distribution Width Platelet Count 11 #*L Mean Platelet Volume Immature 0.500 H Granulocytes % Neutrophils % Segmented 80 H Neutrophils % (Manual) Band Neutrophils % 17 H (Manual) Lymphocytes % Lymphocytes % 2 L (Manual) Monocytes % Monocytes % 1 (Manual) Eosinophils % Basophils % Nucleated Red 0.0 Blood Cells % Immature 0.020 Granulocytes # Neutrophils # Neutrophils # 3.5 (Manual) Band Neutrophils # 0.7 H Lymphocytes 0.0 L (Manual) Lymphocytes # Monocytes # Monocytes # 0.0 L (Manual) Eosinophils # Basophils # Nucleated Red Blood Cells # Platelet Estimate SIG DECREASED Polychromasia 1+ Anisocytosis 2+ Microcytosis 1+ Sodium Level 137 Potassium Level 4.6 Chloride Level 98 Carbon Dioxide 30 Level Anion Gap 9 Blood Urea 93 H Nitrogen Creatinine 0.89 Est Glomerular > 60 Filtrat Rate mL/min Glucose Level 281 H Calcium Level 7.9 L Test 07/23/18 11:01 07/23/18 13:19 07/23/18 17:48 Bedside Glucose 253 H 245 H 241 H Medications Medication Current Medications IV Flush (NS 3 ml) 3 ml PER PROTOCOL IV ; Start 07/19/18 at 19:30 Ondansetron HCl (Zofran Inj) 4 mg Q6H PRN IV NAUSEA/VOMITING; Start 07/19/18 at 19:30 Acetaminophen (Tylenol Tab) 650 mg Q6H PRN PO .PAIN 1-3 OR TEMP Last administered on 07/20/18at 10:01; Admin Dose 650 MG; Start 07/19/18 at 19:30 Morphine Sulfate (morphine) 2 mg Q4H PRN IV .PAIN 8-10 Last administered on 07/20/18at 00:05; Admin Dose 2 MG; Start 07/19/18 at 19:30 Acetaminophen (Tylenol Tab) 650 mg Q6H PRN PO MILD TO MODERATE PAIN; Start 07/19/18 at 19:30 Ascorbic Acid (Vitamin C) 500 mg DAILY PO Last administered on 07/23/18at 10:50; Admin Dose 500 MG; Start 07/20/18 at 09:00 Atorvastatin Calcium (Lipitor) 20 mg QHS PO Last administered on 07/22/18at 22:37; Admin Dose 20 MG; Start 07/19/18 at 21:00 Duloxetine HCl (Cymbalta) 30 mg DAILY PO Last administered on 07/23/18 10:50; Admin Dose 30 MG; Start 07/20/18 at 09:00 Ferrous Sulfate (Ferrous Sulfate (Ec)) 325 mg DAILY PO Last administered on 07/23/18 10:50; Admin Dose 325 MG; Start 07/20/18 at 09:00 Gabapentin (Neurontin) 400 mg Q8 PO Last administered on 07/23/18 13:21; Admin Dose 400 MG; Start 07/19/18 at 22:00 Hydralazine HCl (Apresoline) 50 mg Q8 PO Last administered on 07/23/18 13:22; Admin Dose 50 MG; Start 07/19/18 at 22:00 Isosorbide Dinitrate (Isordil) 10 mg TID PO Last administered on 07/23/18 13:21; Admin Dose 10 MG; Start 07/19/18 at 21:00 Metoprolol Tartrate (Lopressor) 50 mg Q8 PO Last administered on 07/23/18 13:21; Admin Dose 50 MG; Start 07/19/18 at 22:00 Multivitamins Therapeutic (Theragran) 1 tab DAILY PO Last administered on 07/23/18 10:50; Admin Dose 1 TAB; Start 07/20/18 at 09:00 Nitroglycerin (Nitroglycerin (Sl Tab) 0.4 Mg) 1 tab [id number] PRN SL CHEST PAIN; Start 07/19/18 at 19:30 Ondansetron HCl (Zofran Tab) 4 mg Q4H PRN PO NAUSEA AND/OR VOMITING; Start at 19:30 Pantoprazole (Protonix Tab) 40 mg AC BREAKFAST PO Last administered on 07/23/18 06:07; Admin Dose 40 MG; Start 07/20/18 at 07:00 Senna (Senokot) 1 tab BID PO Last administered on 07/23/18 10:49; Admin Dose 1 TAB; Start 07/19/18 at 21:00 Tramadol HCl (Ultram) 50 mg Q6H PRN PO PAIN LEVEL 4-7 Last administered on 07/22/18 00:20; Admin Dose 50 MG; Start 07/19/18 at 19:30 [facility] This patient pedro... PRN PRN XX WOUND CARE; Start 07/20/18 at 01:30 Insulin Aspart (Novolog Insulin Pen) NOVOLOG *MODERATE* ALGORI... Q4 SC Last administered on 07/23/18at 18:07; Admin Dose 6 UNIT; Start 07/20/18 at 17:00 Dexamethasone 40 mg/Sodium Chloride 54 ml @ 108 mls/hr Q24H IV Last administered on 07/23/18at 14:19; Admin Dose 108 MLS/HR; Start 07/22/18 at 12:00; Stop 07/25/18 at 12:29 Insulin Glargine (Lantus) 10 units DAILY@2000 SC Last administered on 07/22/18at 22:54; Admin Dose 10 UNITS; Start 07/22/18 at 20:00 Insulin Aspart (Novolog Insulin Pen) 10 unit BID SC Last administered on 07/23/18at 11:08; Admin Dose 10 UNIT; Start 07/22/18 at 14:00 Lorazepam (Ativan) 0.5 mg Q6 PRN IV AGITATION/ANXIETY; Start 07/22/18 at 17:00 Insulin Human NPH (Humulin N) 12 unit DAILY SC ; Start 07/24/18 at 12:00; Stop 07/26/18 at 11:59; Status LES WILLIAMSON Jul 23, 2018 18:31
--- NOTE | 2018-07-23 18:34 | PN ---
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 Pt continued on Prednisone. - per hematology consultation. -VDRF with tracheostomy on 02/19/18. - per pulmonary - Azotemia - cardiology consult appreciated - monitor renal functions -Hx of Atrial fibrillation and atrial flutter. - unable to tolerate anticoagulation due to severe thrombocytopenia. 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 BS elevated - Continue Lantus and NovoLog. - per Endo consult -Anemia, monitor H&H. - Dysphagia -SP PEG placement on 02/19/18. -Colostomy -Bilateral BKA -Major depressive disorder -Hx of Stage III sacral decubitus ulcer Further recommendations based on clinical course. Plan of care discussed with Dr. Villatoro. Result Diagram: 07/23/18 0543 07/23/18 0543 Results 24hrs Laboratory Tests Test 07/22/18 22:20 07/23/18 02:34 07/23/18 05:43 07/23/18 06:00 Bedside Glucose 277 H 344 H 301 H White Blood Count 4.3 #L Red Blood Count 2.77 L Hemoglobin 7.7 L Hematocrit 24.8 L Mean Corpuscular 89.5 Volume Mean Corpuscular 27.8 L Hemoglobin Mean Corpuscular 31.0 L Hemoglobin Concent Red Cell 17.3 H Distribution Width Platelet Count 11 #*L Mean Platelet Volume Immature 0.500 H Granulocytes % Neutrophils % Segmented 80 H Neutrophils % (Manual) Band Neutrophils % 17 H (Manual) Lymphocytes % Lymphocytes % 2 L (Manual) Monocytes % Monocytes % 1 (Manual) Eosinophils % Basophils % Nucleated Red 0.0 Blood Cells % Immature 0.020 Granulocytes # Neutrophils # Neutrophils # 3.5 (Manual) Band Neutrophils # 0.7 H Lymphocytes 0.0 L (Manual) Lymphocytes # Monocytes # Monocytes # 0.0 L (Manual) Eosinophils # Basophils # Nucleated Red Blood Cells # Platelet Estimate SIG DECREASED Polychromasia 1+ Anisocytosis 2+ Microcytosis 1+ Sodium Level 137 Potassium Level 4.6 Chloride Level 98 Carbon Dioxide 30 Level Anion Gap 9 Blood Urea 93 H Nitrogen Creatinine 0.89 Est Glomerular > 60 Filtrat Rate mL/min Glucose Level 281 H Calcium Level 7.9 L Test 07/23/18 11:01 07/23/18 13:19 07/23/18 17:48 Bedside Glucose 253 H 245 H 241 H Subjective 24 Hr Interval Summary Free Text/Dictation - NAD - afebrile -SBP 101 - lethargic - no new events reported last night Subjective hx not possible: pt non-verbal Constitutional: requiring IVF, requiring O2 Exam/Review of Systems Exam Vitals Vital Signs Date Temp Pulse Resp B/P (MAP) Pulse Ox O2 O2 Flow FiO2 Time Delivery Rate 07/23/18 98.2 101 20 105/77 100 17:55 (86) 07/23/18 30 17:44 07/21/18 Mechanical 03:38 Ventilator Intake and Output 07/22/18 07/22/18 07/23/18 1515:00 23:00 07:00 IntakeIntake Total 54 ml 1450 ml BalanceBalance 54 ml 1450 ml Constitutional: alert, non-verbal, frail Psych: nl mood/affect Eyes: nl lids, nl sclera ENMT: nl external ears & nose Neck: non-tender Respiratory: diminished breath sounds Cardiovascular: nl pulses, other (s1s2) Gastrointestinal: soft, non-tender, other (gt intact; colstomy intact) Musculoskeletal: muscle weakness, other (sp George BKA) Extremities: normal pulses Neurological: confused Skin: other (DECUB) Results Results 24hrs Laboratory Tests Test 07/22/18 22:20 07/23/18 02:34 07/23/18 05:43 07/23/18 06:00 Bedside Glucose 277 H 344 H 301 H White Blood Count 4.3 #L Red Blood Count 2.77 L Hemoglobin 7.7 L Hematocrit 24.8 L Mean Corpuscular 89.5 Volume Mean Corpuscular 27.8 L Hemoglobin Mean Corpuscular 31.0 L Hemoglobin Concent Red Cell 17.3 H Distribution Width Platelet Count 11 #*L Mean Platelet Volume Immature 0.500 H Granulocytes % Neutrophils % Segmented 80 H Neutrophils % (Manual) Band Neutrophils % 17 H (Manual) Lymphocytes % Lymphocytes % 2 L (Manual) Monocytes % Monocytes % 1 (Manual) Eosinophils % Basophils % Nucleated Red 0.0 Blood Cells % Immature 0.020 Granulocytes # Neutrophils # Neutrophils # 3.5 (Manual) Band Neutrophils # 0.7 H Lymphocytes 0.0 L (Manual) Lymphocytes # Monocytes # Monocytes # 0.0 L (Manual) Eosinophils # Basophils # Nucleated Red Blood Cells # Platelet Estimate SIG DECREASED Polychromasia 1+ Anisocytosis 2+ Microcytosis 1+ Sodium Level 137 Potassium Level 4.6 Chloride Level 98 Carbon Dioxide 30 Level Anion Gap 9 Blood Urea 93 H Nitrogen Creatinine 0.89 Est Glomerular > 60 Filtrat Rate mL/min Glucose Level 281 H Calcium Level 7.9 L Test 07/23/18 11:01 07/23/18 13:19 07/23/18 17:48 Bedside Glucose 253 H 245 H 241 H Medications Medication Current Medications IV Flush (NS 3 ml) 3 ml PER PROTOCOL IV ; Start 07/19/18 at 19:30 Ondansetron HCl (Zofran Inj) 4 mg Q6H PRN IV NAUSEA/VOMITING; Start 07/19/18 at 19:30 Acetaminophen (Tylenol Tab) 650 mg Q6H PRN PO .PAIN 1-3 OR TEMP Last administered on 07/20/18at 10:01; Admin Dose 650 MG; Start 07/19/18 at 19:30 Morphine Sulfate (morphine) 2 mg Q4H PRN IV .PAIN 8-10 Last administered on 07/20/18at 00:05; Admin Dose 2 MG; Start 07/19/18 at 19:30 Acetaminophen (Tylenol Tab) 650 mg Q6H PRN PO MILD TO MODERATE PAIN; Start 07/19/18 at 19:30 Ascorbic Acid (Vitamin C) 500 mg DAILY PO Last administered on 07/23/18at 10:50; Admin Dose 500 MG; Start 07/20/18 at 09:00 Atorvastatin Calcium (Lipitor) 20 mg QHS PO Last administered on 07/22/18at 22:37; Admin Dose 20 MG; Start 07/19/18 at 21:00 Duloxetine HCl (Cymbalta) 30 mg DAILY PO Last administered on 07/23/18 10:50; Admin Dose 30 MG; Start 07/20/18 at 09:00 Ferrous Sulfate (Ferrous Sulfate (Ec)) 325 mg DAILY PO Last administered on 07/23/18 10:50; Admin Dose 325 MG; Start 07/20/18 at 09:00 Gabapentin (Neurontin) 400 mg Q8 PO Last administered on 07/23/18 13:21; Admin Dose 400 MG; Start 07/19/18 at 22:00 Hydralazine HCl (Apresoline) 50 mg Q8 PO Last administered on 07/23/18 13:22; Admin Dose 50 MG; Start 07/19/18 at 22:00 Isosorbide Dinitrate (Isordil) 10 mg TID PO Last administered on 07/23/18 13:21; Admin Dose 10 MG; Start 07/19/18 at 21:00 Metoprolol Tartrate (Lopressor) 50 mg Q8 PO Last administered on 07/23/18 13:21; Admin Dose 50 MG; Start 07/19/18 at 22:00 Multivitamins Therapeutic (Theragran) 1 tab DAILY PO Last administered on 07/23/18 10:50; Admin Dose 1 TAB; Start 07/20/18 at 09:00 Nitroglycerin (Nitroglycerin (Sl Tab) 0.4 Mg) 1 tab [id number] PRN SL CHEST PAIN; Start 07/19/18 at 19:30 Ondansetron HCl (Zofran Tab) 4 mg Q4H PRN PO NAUSEA AND/OR VOMITING; Start 07/19/18 at 19:30 Pantoprazole (Protonix Tab) 40 mg AC BREAKFAST PO Last administered on 07/23/18 06:07; Admin Dose 40 MG; Start 07/20/18 at 07:00 Senna (Senokot) 1 tab BID PO Last administered on 07/23/18 10:49; Admin Dose 1 TAB; Start 07/19/18 at 21:00 Tramadol HCl (Ultram) 50 mg Q6H PRN PO PAIN LEVEL 4-7 Last administered on 07/22/18 00:20; Admin Dose 50 MG; Start 07/19/18 at 19:30 [facility] This patient pedro... PRN PRN XX WOUND CARE; Start 07/20/18 at 01:30 Insulin Aspart (Novolog Insulin Pen) NOVOLOG *MODERATE* ALGORI... Q4 SC Last administered on 07/23/18at 18:07; Admin Dose 6 UNIT; Start 07/20/18 at 17:00 Dexamethasone 40 mg/Sodium Chloride 54 ml @ 108 mls/hr Q24H IV Last a dministered on 07/23/18at 14:19; Admin Dose 108 MLS/HR; Start 07/22/18 at 12:00; Stop 07/25/18 at 12:29 Insulin Glargine (Lantus) 10 units DAILY@2000 SC Last administered on 07/22/18at 22:54; Admin Dose 10 UNITS; Start 07/22/18 at 20:00 Insulin Aspart (Novolog Insulin Pen) 10 unit BID SC Last administered on 07/23/18at 11:08; Admin Dose 10 UNIT; Start 07/22/18 at 14:00 Lorazepam (Ativan) 0.5 mg Q6 PRN IV AGITATION/ANXIETY; Start 07/22/18 at 17:00 Insulin Human NPH (Humulin N) 12 unit DAILY SC ; Start 07/24/18 at 12:00; Stop 07/26/18 at 11:59; Status LES WILLIAMSON Jul 23, 2018 18:34
--- NOTE | 2018-07-23 18:36 | PN ---
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 - Pt continued on Prednisone. - per hematology consultation. -VDRF with tracheostomy on 02/19/18. - per pulmonary - Azotemia - cardiology consult appreciated - monitor renal functions -Hx of Atrial fibrillation and atrial flutter. - unable to tolerate anticoagulation due to severe thrombocytopenia. 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 BS elevated - Continue Lantus and NovoLog. - per Endo consult -Anemia, monitor H&H. - Dysphagia -SP PEG placement on 02/19/18. -Colostomy -Bilateral BKA -Major depressive disorder -Hx of Stage III sacral decubitus ulcer Further recommendations based on clinical course. Plan of care discussed with Dr. Villatoro. - NAD - afebrile -SBP 101 - lethargic - no new events reported last night Result Diagram: 07/23/18 0543 07/23/18 0543 Results 24hrs Laboratory Tests Test 07/22/18 22:20 07/23/18 02:34 07/23/18 05:43 07/23/18 06:00 Bedside Glucose 277 H 344 H 301 H White Blood Count 4.3 #L Red Blood Count 2.77 L Hemoglobin 7.7 L Hematocrit 24.8 L Mean Corpuscular 89.5 Volume Mean Corpuscular 27.8 L Hemoglobin Mean Corpuscular 31.0 L Hemoglobin Concent Red Cell 17.3 H Distribution Width Platelet Count 11 #*L Mean Platelet Volume Immature 0.500 H Granulocytes % Neutrophils % Segmented 80 H Neutrophils % (Manual) Band Neutrophils % 17 H (Manual) Lymphocytes % Lymphocytes % 2 L (Manual) Monocytes % Monocytes % 1 (Manual) Eosinophils % Basophils % Nucleated Red 0.0 Blood Cells % Immature 0.020 Granulocytes # Neutrophils # Neutrophils # 3.5 (Manual) Band Neutrophils # 0.7 H Lymphocytes 0.0 L (Manual) Lymphocytes # Monocytes # Monocytes # 0.0 L (Manual) Eosinophils # Basophils # Nucleated Red Blood Cells # Platelet Estimate SIG DECREASED Polychromasia 1+ Anisocytosis 2+ Microcytosis 1+ Sodium Level 137 Potassium Level 4.6 Chloride Level 98 Carbon Dioxide 30 Level Anion Gap 9 Blood Urea 93 H Nitrogen Creatinine 0.89 Est Glomerular > 60 Filtrat Rate mL/min Glucose Level 281 H Calcium Level 7.9 L Test 07/23/18 11:01 07/23/18 13:19 07/23/18 17:48 Bedside Glucose 253 H 245 H 241 H Subjective 24 Hr Interval Summary Subjective hx not possible: pt non-verbal Exam/Review of Systems Exam Vitals Vital Signs Date Temp Pulse Resp B/P (MAP) Pulse Ox O2 O2 Flow FiO2 Time Delivery Rate 07/23/18 98.2 101 20 105/77 100 17:55 (86) 07/23/18 30 17:44 07/21/18 Mechanical 03:38 Ventilator Intake and Output 07/22/18 07/22/18 07/23/18 1515:00 23:00 07:00 IntakeIntake Total 54 ml 1450 ml BalanceBalance 54 ml 1450 ml Constitutional: alert, non-verbal, frail Psych: nl mood/affect Eyes: nl lids, nl sclera ENMT: nl external ears & nose Respiratory: diminished breath sounds (bilaterally at bases) Cardiovascular: nl pulses, other (s1s2) Gastrointestinal: soft, non-tender Musculoskeletal: muscle weakness, other (Bilateral BKA) Extremities: edema Neurological: confused Skin: other (decub) Results Results 24hrs Laboratory Tests Test 07/22/18 22:20 07/23/18 02:34 07/23/18 05:43 07/23/18 06:00 Bedside Glucose 277 H 344 H 301 H White Blood Count 4.3 #L Red Blood Count 2.77 L Hemoglobin 7.7 L Hematocrit 24.8 L Mean Corpuscular 89.5 Volume Mean Corpuscular 27.8 L Hemoglobin Mean Corpuscular 31.0 L Hemoglobin Concent Red Cell 17.3 H Distribution Width Platelet Count 11 #*L Mean Platelet Volume Immature 0.500 H Granulocytes % Neutrophils % Segmented 80 H Neutrophils % (Manual) Band Neutrophils % 17 H (Manual) Lymphocytes % Lymphocytes % 2 L (Manual) Monocytes % Monocytes % 1 (Manual) Eosinophils % Basophils % Nucleated Red 0.0 Blood Cells % Immature 0.020 Granulocytes # Neutrophils # Neutrophils # 3.5 (Manual) Band Neutrophils # 0.7 H Lymphocytes 0.0 L (Manual) Lymphocytes # Monocytes # Monocytes # 0.0 L (Manual) Eosinophils # Basophils # Nucleated Red Blood Cells # Platelet Estimate SIG DECREASED Polychromasia 1+ Anisocytosis 2+ Microcytosis 1+ Sodium Level 137 Potassium Level 4.6 Chloride Level 98 Carbon Dioxide 30 Level Anion Gap 9 Blood Urea 93 H Nitrogen Creatinine 0.89 Est Glomerular > 60 Filtrat Rate mL/min Glucose Level 281 H Calcium Level 7.9 L Test 07/23/18 11:01 07/23/18 13:19 07/23/18 17:48 Bedside Glucose 253 H 245 H 241 H Medications Medication Current Medications IV Flush (NS 3 ml) 3 ml PER PROTOCOL IV ; Start 07/19/18 at 19:30 Ondansetron HCl (Zofran Inj) 4 mg Q6H PRN IV NAUSEA/VOMITING; Start 07/19/18 at 19:30 Acetaminophen (Tylenol Tab) 650 mg Q6H PRN PO .PAIN 1-3 OR TEMP Last administered on 07/20/18at 10:01; Admin Dose 650 MG; Start 07/19/18 at 19:30 Morphine Sulfate (morphine) 2 mg Q4H PRN IV .PAIN 8-10 Last administered on 07/20/18at 00:05; Admin Dose 2 MG; Start 07/19/18 at 19:30 Acetaminophen (Tylenol Tab) 650 mg Q6H PRN PO MILD TO MODERATE PAIN; Start 07/19/18 at 19:30 Ascorbic Acid (Vitamin C) 500 mg DAILY PO Last administered on 07/23/18at 10:50; Admin Dose 500 MG; Start 07/20/18 at 09:00 Atorvastatin Calcium (Lipitor) 20 mg QHS PO Last administered on 07/22/18at 22:37; Admin Dose 20 MG; Start 07/19/18 at 21:00 Duloxetine HCl (Cymbalta) 30 mg DAILY PO Last administered on 07/23/18at 10:50; Admin Dose 30 MG; Start 07/20/18 at 09:00 Ferrous Sulfate (Ferrous Sulfate (Ec)) 325 mg DAILY PO Last administered on 07/23/18 10:50; Admin Dose 325 MG; Start 07/20/18 at 09:00 Gabapentin (Neurontin) 400 mg Q8 PO Last administered on 07/23/18 13:21; Admin Dose 400 MG; Start 07/19/18 at 22:00 Hydralazine HCl (Apresoline) 50 mg Q8 PO Last administered on 07/23/18 13:22; Admin Dose 50 MG; Start 07/19/18 at 22:00 Isosorbide Dinitrate (Isordil) 10 mg TID PO Last administered on 07/23/18 13:21; Admin Dose 10 MG; Start 07/19/18 at 21:00 Metoprolol Tartrate (Lopressor) 50 mg Q8 PO Last administered on 07/23/18 13:21; Admin Dose 50 MG; Start 07/19/18 at 22:00 Multivitamins Therapeutic (Theragran) 1 tab DAILY PO Last administered on 07/23/18 10:50; Admin Dose 1 TAB; Start 07/20/18 at 09:00 Nitroglycerin (Nitroglycerin (Sl Tab) 0.4 Mg) 1 tab [id number] PRN SL CHEST PAIN; Start 07/19/18 at 19:30 Ondansetron HCl (Zofran Tab) 4 mg Q4H PRN PO NAUSEA AND/OR VOMITING; Start 07/19/18 at 19:30 Pantoprazole (Protonix Tab) 40 mg AC BREAKFAST PO Last administered on 07/23/18 06:07; Admin Dose 40 MG; Start 07/20/18 at 07:00 Senna (Senokot) 1 tab BID PO Last administered on 07/23/18 10:49; Admin Dose 1 TAB; Start 07/19/18 at 21:00 Tramadol HCl (Ultram) 50 mg Q6H PRN PO PAIN LEVEL 4-7 Last administered on 07/22/18 00:20; Admin Dose 50 MG; Start 07/19/18 at 19:30 Miscellaneous Information (Pending [facility] Order For Wound Care) This patient pedro... PRN PRN XX WOUND CARE; Start 07/20/18 at 01:30 Insulin Aspart (Novolog Insulin Pen) NOVOLOG *MODERATE* ALGORI... Q4 SC Last administered on 07/23/18at 18:07; Admin Dose 6 UNIT; Start 07/20/18 at 17:00 Dexamethasone 40 mg/Sodium Chloride 54 ml @ 108 mls/hr Q24H IV Last administe red on 07/23/18at 14:19; Admin Dose 108 MLS/HR; Start 07/22/18 at 12:00; Stop 07/25/18 at 12:29 Insulin Glargine (Lantus) 10 units DAILY@2000 SC Last administered on 07/22/18at 22:54; Admin Dose 10 UNITS; Start 07/22/18 at 20:00 Insulin Aspart (Novolog Insulin Pen) 10 unit BID SC Last administered on 07/23/18at 11:08; Admin Dose 10 UNIT; Start 07/22/18 at 14:00 Lorazepam (Ativan) 0.5 mg Q6 PRN IV AGITATION/ANXIETY; Start 07/22/18 at 17:00 Insulin Human NPH (Humulin N) 12 unit DAILY SC ; Start 07/24/18 at 12:00; Stop 07/26/18 at 11:59; Status LES WILLIAMSON Jul 23, 2018 18:36
[2018-07-23] MEDS: ATORVASTATIN 20 MG TAB PO SCH (22:11)
[2018-07-23] MEDS: INSULIN GLARGINE [LANTus] (100 UNITS/ML) SYG SC SCH (22:56)
[2018-07-24] VITALS (23 sets, daily range): BP systolic 114–139; BP diastolic 63–89; PULSE 73–109; RESP 12–27
[2018-07-24] MEDS: INSULIN ASPART [NOVOLOG] 3 ML PEN SC SCH ×8 (02:12→22:33)
[2018-07-24] MEDS: GABAPENTIN 400 MG CAP PO SCH ×3 (06:12→22:09)
[2018-07-24] MEDS: PANTOPRAZOLE (EC) 40 MG TAB PO SCH (06:12)
[2018-07-24] MEDS: METOPROLOL 50 MG TAB PO SCH ×3 (06:12→22:13)
[2018-07-24] MEDS: DULOXETINE 30 MG CAP DR PO SCH (08:46)
[2018-07-24] MEDS: ASCORBIC ACID 500 MG TAB PO SCH (08:46)
[2018-07-24] MEDS: ISOSORBIDE DINITRATE 10 MG TAB PO SCH ×3 (08:47→22:11)
[2018-07-24] MEDS: FERROUS SULFATE (EC) 325 MG TAB PO SCH (08:47)
[2018-07-24] MEDS: MULTIVITAMINS THERAPEUTIC TAB PO SCH (08:47)
[2018-07-24] MEDS: SENNA TAB PO SCH ×2 (08:47→22:09)
[2018-07-24] MEDS: morphine 2 MG INJ IV PRN ×2 (08:52→23:31)
--- NOTE | 2018-07-24 10:57 | CONS ---
Assessment/Plan Assessment/Plan Assessment/Plan (Daily) 1. Metabolic alkalosis due to prerenal azotemia 2. acute prerenal azotemia 3. ITP 4. severe thrombocytopenia 5. accelerated HTN Plan: Continue Hydralazine 50mg PO Q8 hr and MTP 50mg pO Q 8 hr BUN/Cr normal, HCo3 improved to 30 will follow up Consultation Date/Type/Reason Admit Date/Time Jul 19, 2018 at 18:40 Initial Consult Date 07/22/18 Type of Consult NEPHROLOGY Requesting Provider: NOE MINOR MD Date/Time of Note DATE: 07/24/18 TIME: 10:57 Exam/Review of Systems Exam Vitals Vital Signs Date Temp Pulse Resp B/P (MAP) Pulse Ox O2 O2 Flow FiO2 Time Delivery Rate 07/24/18 92 17 94 30 09:26 07/24/18 98.6 129/89 07:18 (102) 07/21/18 Mechanical 03:38 Ventilator Intake and Output 07/23/18 07/23/18 07/24/18 1515:00 23:00 07:00 IntakeIntake Total 1530 ml OutputOutput Total 450 ml BalanceBalance 1080 ml Results Result Diagram: 07/23/18 0543 07/23/18 0543 Results 24hrs Laboratory Tests Test 07/23/18 11:01 07/23/18 13:19 07/23/18 17:48 07/23/18 22:08 Bedside Glucose 253 H 245 H 241 H 316 H Test 07/24/18 01:55 07/24/18 06:15 07/24/18 08:56 Bedside Glucose 317 H 266 H 234 H Medications Medication Current Medications IV Flush (NS 3 ml) 3 ml PER PROTOCOL IV ; Start 07/19/18 at 19:30 Ondansetron HCl (Zofran Inj) 4 mg Q6H PRN IV NAUSEA/VOMITING; Start 07/19/18 at 19:30 Acetaminophen (Tylenol Tab) 650 mg Q6H PRN PO .PAIN 1-3 OR TEMP Last administered on 07/20/18at 10:01; Admin Dose 650 MG; Start 07/19/18 at 19:30 Morphine Sulfate (morphine) 2 mg Q4H PRN IV .PAIN 8-10 Last administered on at 08:52; Admin Dose 2 MG; Start 07/19/18 at 19:30 Acetaminophen (Tylenol Tab) 650 mg Q6H PRN PO MILD TO MODERATE PAIN; Start 07/19/18 at 19:30 Ascorbic Acid (Vitamin C) 500 mg DAILY PO Last administered on 07/24/18 08:46; Admin Dose 500 MG; Start 07/20/18 at 09:00 Atorvastatin Calcium (Lipitor) 20 mg QHS PO Last administered on 07/23/18 22:11; Admin Dose 20 MG; Start 07/19/18 at 21:00 Duloxetine HCl (Cymbalta) 30 mg DAILY PO Last administered on 07/24/18 08:46; Admin Dose 30 MG; Start 07/20/18 at 09:00 Ferrous Sulfate (Ferrous Sulfate (Ec)) 325 mg DAILY PO Last administered on 08:47; Admin Dose 325 MG; Start 07/20/18 at 09:00 Gabapentin (Neurontin) 400 mg Q8 PO Last administered on 07/24/18 06:12; Admin Dose 400 MG; Start 07/19/18 at 22:00 Hydralazine HCl (Apresoline) 50 mg Q8 PO Last administered on 07/24/18 06:12; Admin Dose 50 MG; Start 07/19/18 at 22:00 Isosorbide Dinitrate (Isordil) 10 mg TID PO Last administered on 07/24/18 08:47; Admin Dose 10 MG; Start 07/19/18 at 21:00 Metoprolol Tartrate (Lopressor) 50 mg Q8 PO Last administered on 07/24/18 06:12; Admin Dose 50 MG; Start 07/19/18 at 22:00 Multivitamins Therapeutic (Theragran) 1 tab DAILY PO Last administered on 07/24/18 08:47; Admin Dose 1 TAB; Start 07/20/18 at 09:00 Nitroglycerin (Nitroglycerin (Sl Tab) 0.4 Mg) 1 tab [id number] PRN SL CHEST PAIN; Start 07/19/18 at 19:30 Ondansetron HCl (Zofran Tab) 4 mg Q4H PRN PO NAUSEA AND/OR VOMITING; Start 07/19/18 at 19:30 Pantoprazole (Protonix Tab) 40 mg AC BREAKFAST PO Last administered on 4/25/19at 06:12; Admin Dose 40 MG; Start 07/20/18 at 07:00 Senna (Senokot) 1 tab BID PO Last administered on 07/24/18at 08:47; Admin Dose 1 TAB; Start 07/19/18 at 21:00 Tramadol HCl (Ultram) 50 mg Q6H PRN PO PAIN LEVEL 4-7 Last administered on 07/22/18at 00:20; Admin Dose 50 MG; Start 07/19/18 at 19:30 [facility] This patient pedro... PRN PRN XX WOUND CARE; Start 07/20/18 at 01:30 Insulin Aspart (Novolog Insulin Pen) NOVOLOG *MODERATE* ALGORI... Q4 SC Last administered on 07/24/18at 09:07; Admin Dose 6 UNIT; Start 07/20/18 at 17:00 Dexamethasone 40 mg/Sodium Chloride 54 ml @ 108 mls/hr Q24H IV Last administered on 07/23/18at 14:19; Admin Dose 108 MLS/HR; Start 07/22/18 at 12:00; Stop 07/25/18 at 12:29 Insulin Glargine (Lantus) 10 units DAILY@2000 SC Last administered on 07/23/18at 22:56; Admin Dose 10 UNITS; Start 07/22/18 at 20:00 Insulin Aspart (Novolog Insulin Pen) 10 unit BID SC Last administered on 07/24/18at 09:07; Admin Dose 10 UNIT; Start 07/22/18 at 14:00 Lorazepam (Ativan) 0.5 mg Q6 PRN IV AGITATION/ANXIETY; Start 07/22/18 at 17:00 Insulin Human NPH (Humulin N) 12 unit Q24H SC ; Start 07/24/18 at 12:00; Stop 07/25/18 at 12:29 OCTAVIO BOX MD Jul 24, 2018 10:57
--- NOTE | 2018-07-24 11:22 | CONS ---
Consult Date/Type/Reason Admit Date/Time Jul 19, 2018 at 18:40 Initial Consult Date 07/22/18 Type of Consult Pulmonary Requesting Provider: NOE MINOR MD Date/Time of Note DATE: 07/24/18 TIME: 11:21 Subjective Patient comfortable this morning no respiratory distress Objective Vital Signs Date Temp Pulse Resp B/P (MAP) Pulse Ox O2 O2 Flow FiO2 Time Delivery Rate 07/24/18 89 14 95 30 11:18 07/24/18 98.0 114/67 11:12 (83) 07/21/18 Mechanical 03:38 Ventilator Intake and Output 07/23/18 07/23/18 07/24/18 1515:00 23:00 07:00 IntakeIntake Total 1530 ml OutputOutput Total 450 ml BalanceBalance 1080 ml Exam PHYSICAL EXAMINATION: GENERAL: Chronically ill appearing gentleman, appears comfortable at rest, in no acute distress. VITAL SIGNS: NECK: Supple. Trach site is clean and intact. CARDIAC: S1, S2. No added sounds or murmurs. CHEST: Diminished air entry bilaterally. ABDOMEN: Soft, nontender. No guarding or rebound. EXTREMITIES: No cyanosis, clubbing or edema. NEUROLOGIC: Generalized weakness. Vent Setting Ventilator Support Mode: AC Fraction of Inspired Oxygen pe: 30 Positive End Expiratory Pressu: 5.0 Results/Medications Result Diagram: 07/23/18 0543 07/23/18 0543 Results 24 hrs Laboratory Tests Test 07/23/18 13:19 07/23/18 17:48 07/23/18 22:08 07/24/18 01:55 Bedside Glucose 245 H 241 H 316 H 317 H Test 07/24/18 06:15 07/24/18 08:56 Bedside Glucose 266 H 234 H Medications Current Medications IV Flush (NS 3 ml) 3 ml PER PROTOCOL IV ; Start 07/19/18 at 19:30 Ondansetron HCl (Zofran Inj) 4 mg Q6H PRN IV NAUSEA/VOMITING; Start 07/19/18 at 19:30 Acetaminophen (Tylenol Tab) 650 mg Q6H PRN PO .PAIN 1-3 OR TEMP Last administered on 07/20/18at 10:01; Admin Dose 650 MG; Start 07/19/18 at 19:30 Morphine Sulfate (morphine) 2 mg Q4H PRN IV .PAIN 8-10 Last administered on 07/24/18 08:52; Admin Dose 2 MG; Start 07/19/18 at 19:30 Acetaminophen (Tylenol Tab) 650 mg Q6H PRN PO MILD TO MODERATE PAIN; Start 07/19/18 at 19:30 Ascorbic Acid (Vitamin C) 500 mg DAILY PO Last administered on 07/24/18 08:46; Admin Dose 500 MG; Start 07/20/18 at 09:00 Atorvastatin Calcium (Lipitor) 20 mg QHS PO Last administered on 07/23/18 22:11; Admin Dose 20 MG; Start 07/19/18 at 21:00 Duloxetine HCl (Cymbalta) 30 mg DAILY PO Last administered on 07/24/18 08:46; Admin Dose 30 MG; Start 07/20/18 at 09:00 Ferrous Sulfate (Ferrous Sulfate (Ec)) 325 mg DAILY PO Last administered on 07/24/18 08:47; Admin Dose 325 MG; Start 07/20/18 at 09:00 Gabapentin (Neurontin) 400 mg Q8 PO Last administered on 07/24/18 06:12; Admin Dose 400 MG; Start 07/19/18 at 22:00 Hydralazine HCl (Apresoline) 50 mg Q8 PO Last administered on 07/24/18 06:12; Admin Dose 50 MG; Start 07/19/18 at 22:00 Isosorbide Dinitrate (Isordil) 10 mg TID PO Last administered on 07/24/18 08:47; Admin Dose 10 MG; Start 07/19/18 at 21:00 Metoprolol Tartrate (Lopressor) 50 mg Q8 PO Last administered on 07/24/18 06:12; Admin Dose 50 MG; Start 07/19/18 at 22:00 Multivitamins Therapeutic (Theragran) 1 tab DAILY PO Last administered on 07/24/18 08:47; Admin Dose 1 TAB; Start 07/20/18 at 09:00 Nitroglycerin (Nitroglycerin (Sl Tab) 0.4 Mg) 1 tab [id number] PRN SL CHEST PAIN; Start 07/19/18 at 19:30 Ondansetron HCl (Zofran Tab) 4 mg Q4H PRN PO NAUSEA AND/OR VOMITING; Start 07/19/18 at 19:30 Pantoprazole (Protonix Tab) 40 mg AC BREAKFAST PO Last administered on 07/24/18 06:12; Admin Dose 40 MG; Start 07/20/18 at 07:00 Senna (Senokot) 1 tab BID PO Last administered on 07/24/18 08:47; Admin Dose 1 TAB; Start 07/19/18 at 21:00 Tramadol HCl (Ultram) 50 mg Q6H PRN PO PAIN LEVEL 4-7 Last administered on 07/22/18 00:20; Admin Dose 50 MG; Start 07/19/18 at 19:30 [facility]isc[facility] This patient pedro... PRN PRN XX WOUND CARE; Start 07/20/18 at 01:30 Insulin Aspart (Novolog Insulin Pen) NOVOLOG *MODERATE* ALGORI... Q4 SC Last administered on 07/24/18 09:07; Admin Dose 6 UNIT; Start 07/20/18 at 17:00 Dexamethasone 40 mg/Sodium Chloride 54 ml @ 108 mls/hr Q24H IV Last administered on 07/23/18 14:19; Admin Dose 108 MLS/HR; Start 07/22/18 at 12:00; Stop 07/25/18 at 12:29 Insulin Glargine (Lantus) 10 units DAILY@2000 SC Last administered on 07/23/18at 22:56; Admin Dose 10 UNITS; Start 07/22/18 at 20:00 Insulin Aspart (Novolog Insulin Pen) 10 unit BID SC Last administered on 07/24/18 09:07; Admin Dose 10 UNIT; Start 07/22/18 at 14:00 Lorazepam (Ativan) 0.5 mg Q6 PRN IV AGITATION/ANXIETY; Start 07/22/18 at 17:00 Insulin Human NPH (Humulin N) 12 unit Q24H SC ; Start 07/24/18 at 12:00; Stop 07/25/18 at 12:29 Assessment/Plan Hospital Course (Demo Recall) IMPRESSION AND PLAN: 1. Ventilator-dependent respiratory failure. 2. 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 3. Dysphagia with G-tube. 4. Anemia no active GI bleeding PLAN: 1. Continue steroids for immunosuppressive therapy for peripheral platelet destruction. Hematology oncology recommendations 2. Continue vent support. 3. Tube feeding as tolerated. 4. Cardiac recommendations. AMOS CLEMENTS MD, [facility] Jul 24, 2018 11:22
--- NOTE | 2018-07-24 12:22 | CONS ---
Assessment/Plan Assessment/Plan Hospital Course (Demo Recall) IMPRESSION: 1. Permanent pacemaker with proper function at this time, primarily AV pacing. No signs of dysfunction at this time. 2. History of paroxysmal atrial fibrillation and atrial flutter, had been off anticoagulation due to severe thrombocytopenia, has been started on anticoagulation, which was stopped at this time due to severe thrombocytopenia. 3. Hypertension. 4. Dyslipidemia. 5. History of aortic valve replacement, bioprosthesis in 06/2017. 6. History of coronary artery disease, status post coronary artery bypass graft surgery in 06/2017 using AHUJA to LAD. 7. 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 8. Diabetes mellitus. 9. Dysphagia, status post G-tube. 10. Chronic respiratory failure, status post tracheostomy. Recc: -Tele -Continue BB/hydralazine -Continue isordil -Holding antiplatelet/anticoagulation secondary to severe thrombocytopenia -Continue statin -Follow volume status closely Consultation Date/Type/Reason Admit Date/Time Jul 19, 2018 at 18:40 Initial Consult Date 07/22/18 Type of Consult Cardiology Reason for Consultation AF Requesting Provider: NOE MINOR MD Date/Time of Note DATE: 07/24/18 TIME: 12:18 Exam/Review of Systems Vital Signs Vitals Vital Signs Date Temp Pulse Resp B/P (MAP) Pulse Ox O2 O2 Flow FiO2 Time Delivery Rate 07/24/18 89 14 95 30 11:18 07/24/18 98.0 114/67 11:12 (83) 07/21/18 Mechanical 03:38 Ventilator Intake and Output 07/23/18 07/23/18 07/24/18 1515:00 23:00 07:00 IntakeIntake Total 1530 ml OutputOutput Total 450 ml BalanceBalance 1080 ml Exam Exam Review of Systems: CONSTITUTIONAL: No fevers, chills. PULMONARY: No sob CARDIOVASCULAR: No chest pain/palpitations GASTROINTESTINAL: No nausea/vomiting. GENITOURINARY: No hematuria/dysuria. MUSCULOSKELETAL: No myagias/arthalgias. PSYCHIATRIC: The patient denies depression. NEUROLOGIC: No weakness Constitutional: alert Psych: no complaints Head: normocephalic ENMT: mucosa pink and moist Neck: supple, jvd (9 cm water) Respiratory: diminished breath sounds Cardiovascular: regular rate and rhythm Gastrointestinal: soft, non-tender Musculoskeletal: muscle tone (normal) Extremities: edema (none) Labs Result Diagram: 07/23/18 0543 07/23/18 0543 Results 24hrs Laboratory Tests Test 07/23/18 13:19 07/23/18 17:48 07/23/18 22:08 07/24/18 01:55 Bedside Glucose 245 H 241 H 316 H 317 H Test 07/24/18 06:15 07/24/18 08:56 Bedside Glucose 266 H 234 H Medications Medications Current Medications IV Flush (NS 3 ml) 3 ml PER PROTOCOL IV ; Start 07/19/18 at 19:30 Ondansetron HCl (Zofran Inj) 4 mg Q6H PRN IV NAUSEA/VOMITING; Start 07/19/18 at 19:30 Acetaminophen (Tylenol Tab) 650 mg Q6H PRN PO .PAIN 1-3 OR TEMP Last administered on 07/20/18 10:01; Admin Dose 650 MG; Start 07/19/18 at 19:30 Morphine Sulfate (morphine) 2 mg Q4H PRN IV .PAIN 8-10 Last administered on 07/24/18 08:52; Admin Dose 2 MG; Start 07/19/18 at 19:30 Acetaminophen (Tylenol Tab) 650 mg Q6H PRN PO MILD TO MODERATE PAIN; Start 07/19/18 at 19:30 Ascorbic Acid (Vitamin C) 500 mg DAILY PO Last administered on 07/24/18 08:46; Admin Dose 500 MG; Start 07/20/18 at 09:00 Atorvastatin Calcium (Lipitor) 20 mg QHS PO Last administered on 07/23/18 22:11; Admin Dose 20 MG; Start 07/19/18 at 21:00 Duloxetine HCl (Cymbalta) 30 mg DAILY PO Last administered on 07/24/18 08:46; Admin Dose 30 MG; Start 07/20/18 at 09:00 Ferrous Sulfate (Ferrous Sulfate (Ec)) 325 mg DAILY PO Last administered on 07/24/18 08:47; Admin Dose 325 MG; Start 07/20/18 at 09:00 Gabapentin (Neurontin) 400 mg Q8 PO Last administered on 07/24/18 06:12; Admin Dose 400 MG; Start 07/19/18 at 22:00 Hydralazine HCl (Apresoline) 50 mg Q8 PO Last administered on 07/24/18 06:12; Admin Dose 50 MG; Start 07/19/18 at 22:00 Isosorbide Dinitrate (Isordil) 10 mg TID PO Last administered on 07/24/18 08:47; Admin Dose 10 MG; Start 07/19/18 at 21:00 Metoprolol Tartrate (Lopressor) 50 mg Q8 PO Last administered on 07/24/18 06:12; Admin Dose 50 MG; Start 07/19/18 at 22:00 Multivitamins Therapeutic (Theragran) 1 tab DAILY PO Last administered on 07/24/18 08:47; Admin Dose 1 TAB; Start 07/20/18 at 09:00 Nitroglycerin (Nitroglycerin (Sl Tab) 0.4 Mg) 1 tab [id number] PRN SL CHEST PAIN; Start 07/19/18 at 19:30 Ondansetron HCl (Zofran Tab) 4 mg Q4H PRN PO NAUSEA AND/OR VOMITING; Start 07/19/18 at 19:30 Pantoprazole (Protonix Tab) 40 mg AC BREAKFAST PO Last administered on 07/24/18 06:12; Admin Dose 40 MG; Start 07/20/18 at 07:00 Senna (Senokot) 1 tab BID PO Last administered on 07/24/18 08:47; Admin Dose 1 TAB; Start 07/19/18 at 21:00 Tramadol HCl (Ultram) 50 mg Q6H PRN PO PAIN LEVEL 4-7 Last administered on 07/22/18 00:20; Admin Dose 50 MG; Start 07/19/18 at 19:30 Miscellaneous Information (Pending [facility] Order For Wound Care) This patient pedro... PRN PRN XX WOUND CARE; Start 07/20/18 at 01:30 Insulin Aspart (Novolog Insulin Pen) NOVOLOG *MODERATE* ALGORI... Q4 SC Last administered on 07/24/18 09:07; Admin Dose 6 UNIT; Start 07/20/18 at 17:00 Dexamethasone 40 mg/Sodium Chloride 54 ml @ 108 mls/hr Q24H IV Last administered on 07/23/18 14:19; Admin Dose 108 MLS/HR; Start 07/22/18 at 12:00; Stop 07/25/18 at 12:29 Insulin Glargine (Lantus) 10 units DAILY@2000 SC Last administered on 07/23/18at 22:56; Admin Dose 10 UNITS; Start 07/22/18 at 20:00 Insulin Aspart (Novolog Insulin Pen) 10 unit BID SC Last administered on 07/24/18at 09:07; Admin Dose 10 UNIT; Start 07/22/18 at 14:00 Lorazepam (Ativan) 0.5 mg Q6 PRN IV AGITATION/ANXIETY; Start 07/22/18 at 17:00 Insulin Human NPH (Humulin N) 12 unit Q24H SC ; Start 07/24/18 at 12:00; Stop 07/25/18 at 12:29 RODGER MIRELES Jul 24, 2018 12:21
[2018-07-24] MEDS: SOD CHLORIDE 0.9% IV SCH (12:48)
[2018-07-24] MEDS: DEXAMETHASONE IV SCH (12:48)
[2018-07-24] MEDS: NPH, HUMAN INSULIN ISOPHANE 3ML VIAL SC SCH (13:15)
--- NOTE | 2018-07-24 18:11 | CONS ---
Assessment/Plan Assessment/Plan Problems: (1) Diabetes mellitus type 2 with complications Status: Chronic Comment: His blood sugar had risen up with usage of the Decadron. I went ahead and did the protocol using NPH insulin simultaneously with the steroids which is bringing the sugars down nicely. Once the Decadron is done the NPH will be done and go back to his routine protocol which was controlling him quite well. Qualifiers: Qualified Codes: E11.8 - Type 2 diabetes mellitus with unspecified complications; Z79.4 - senior living (current) use of insulin Consultation Date/Type/Reason Admit Date/Time Jul 19, 2018 at 18:40 Date of Consultation: Jul 24, 2018 Type of Consult Endocrine Reason for Consultation Beatties mellitus type II out of control since on high-dose Decadron for ITP Requesting Provider: LES TRENT Date/Time of Note DATE: 07/24/18 TIME: 18:06 Hx of Present Illness 68-year-old single male who has been inpatient at either [facility] or [facility] for over 12 months. He has redeveloped a recurrence of ITP requiring admission [facility] for severe thrombocytopenia without major bleeding disorder. Placed on high- dose dexamethasone which is surrounded sugar control off. I actually saw him yesterday and wrote orders to deal with that as of that time. Patient recalls who I am. Respiratory: no complaints Cardiovascular: chest pain (Post sternotomy chest wall pain) Gastrointestinal: no complaints Endocrine: no complaints Past Medical History Medical History: coronary artery disease, diabetes (Diabetes mellitus type 2), high cholesterol, hypertension, renal disease (History of acute kidney injury presently dehydrated), other (See the problem list) Home Meds Reported Medications Tramadol HCl (Tramadol HCl) 50 Mg Tablet, 50 MG PO Q6H PRN for PAIN LEVEL 7-10, #120 TAB 06/23/18 Hydralazine Hcl* (Hydralazine Hcl*) 50 Mg Tab, 50 MG PO Q8 for hypertension, #90 TAB 06/23/18 Gabapentin* (Neurontin*) 400 Mg Capsule, 400 MG PO Q8, #90 CAP 06/23/18 Insulin Isophan/Regular (Humulin 70/30) 100 Units/Ml Susp, 18 UNIT SC Q8, EA 06/23/18 Omeprazole* (Omeprazole*) 40 Mg Capsule.dr, 40 MG PO DAILY, #30 CAP 06/23/18 Metoprolol Tartrate* (Lopressor*) 50 Mg Tab, 50 MG PO Q8, #60 TAB 06/23/18 Atorvastatin Calcium* (Atorvastatin Calcium*) 20 Mg Tablet, 20 MG PO QHS, #30 TAB 06/23/18 Ondansetron Hcl* (Ondansetron Hcl*) 4 Mg Tablet, 4 MG PO Q4H PRN for NAUSEA AND OR VOMITING, TAB 11/11/17 Budesonide-Formoterol Fumarate* (Symbicort*) 160-4.5 Hfa.aer.ad, 1 PUFF INHALATION BID, #1 EACH 11/11/17 Sennosides* (Senna Lax*) 8.6 Mg Tablet, 1 TAB PO BID, TAB 11/11/17 Multivitamins* (Theragran*) 1 Tab Tab, 1 TAB PO DAILY, TAB 11/11/17 Isosorbide Dinitrate* (Isosorbide Dinitrate*) 10 Mg Tablet, 10 MG PO TID, TAB 11/11/17 Ascorbic Acid* (Vitamin C*) 500 Mg Capsule.sa, 500 MG PO DAILY, CAP 11/11/17 Pantoprazole* (Protonix*) 40 Mg Tablet.dr, 40 MG PO AC BREAKFAST, TAB 08/07/17 Apixaban* (Eliquis*) 5 Mg Tablet, 5 MG PO BID, TAB 08/07/17 Nitroglycerin* (Nitrostat*) 0.4 Mg Tab.subl, 0.4 MG SL Q5MIN PRN for CHEST PAIN, BOTTLE 05/19/17 Duloxetine Hcl* (Cymbalta*) 30 Mg Capsule.dr, 30 MG PO DAILY, CAP 05/19/17 Acetaminophen* (Acetaminophen*) 650 Mg Tablet, 650 MG PO Q6H PRN for MILD TO MODERATE PAIN, #30 TAB 03/18/17 Alprazolam* (Alprazolam*) 0.25 Mg Tablet, 0.25 MG PO TID PRN for ANXIETY, TAB 03/18/17 Ferrous Sulfate* (Ferrous Sulfate*) 325 Mg Tabec, 325 MG PO DAILY, TAB 03/18/17 Medications Current Medications IV Flush (NS 3 ml) 3 ml PER PROTOCOL IV ; Start 07/19/18 at 19:30 Ondansetron HCl (Zofran Inj) 4 mg Q6H PRN IV NAUSEA/VOMITING; Start 07/19/18 at 19:30 Acetaminophen (Tylenol Tab) 650 mg Q6H PRN PO .PAIN 1-3 OR TEMP Last administered on 07/20/18 10:01; Admin Dose 650 MG; Start 07/19/18 at 19:30 Morphine Sulfate (morphine) 2 mg Q4H PRN IV .PAIN 8-10 Last administered on 07/24/18 08:52; Admin Dose 2 MG; Start 07/19/18 at 19:30 Acetaminophen (Tylenol Tab) 650 mg Q6H PRN PO MILD TO MODERATE PAIN; Start 07/19/18 at 19:30 Ascorbic Acid (Vitamin C) 500 mg DAILY PO Last administered on 07/24/18 08:46; Admin Dose 500 MG; Start 07/20/18 at 09:00 Atorvastatin Calcium (Lipitor) 20 mg QHS PO Last administered on 07/23/18 22:11; Admin Dose 20 MG; Start 07/19/18 at 21:00 Duloxetine HCl (Cymbalta) 30 mg DAILY PO Last administered on 07/24/18 08:46; Admin Dose 30 MG; Start 07/20/18 at 09:00 Ferrous Sulfate (Ferrous Sulfate (Ec)) 325 mg DAILY PO Last administered on 07/24/18 08:47; Admin Dose 325 MG; Start 07/20/18 at 09:00 Gabapentin (Neurontin) 400 mg Q8 PO Last administered on 07/24/18 16:33; Admin Dose 400 MG; Start 07/19/18 at 22:00 Hydralazine HCl (Apresoline) 50 mg Q8 PO Last administered on 07/24/18 06:12; Admin Dose 50 MG; Start 07/19/18 at 22:00 Isosorbide Dinitrate (Isordil) 10 mg TID PO Last administered on 07/24/18 12:49; Admin Dose 10 MG; Start 07/19/18 at 21:00 Metoprolol Tartrate (Lopressor) 50 mg Q8 PO Last administered on 07/24/18 16:33; Admin Dose 50 MG; Start 07/19/18 at 22:00 Multivitamins Therapeutic (Theragran) 1 tab DAILY PO Last administered on 07/24/18 08:47; Admin Dose 1 TAB; Start 07/20/18 at 09:00 Nitroglycerin (Nitroglycerin (Sl Tab) 0.4 Mg) 1 tab [id number] PRN SL CHEST PAIN; Start 07/19/18 at 19:30 Ondansetron HCl (Zofran Tab) 4 mg Q4H PRN PO NAUSEA AND/OR VOMITING; Start 07/19/18 at 19:30 Pantoprazole (Protonix Tab) 40 mg AC BREAKFAST PO Last administered on 07/24 06:12; Admin Dose 40 MG; Start 07/20/18 at 07:00 Senna (Senokot) 1 tab BID PO Last administered on 07/24/18 08:47; Admin Dose 1 TAB; Start 07/19/18 at 21:00 Tramadol HCl (Ultram) 50 mg Q6H PRN PO PAIN LEVEL 4-7 Last administered on 07/22/18 00:20; Admin Dose 50 MG; Start 07/19/18 at 19:30 [facility] This patient pedro... PRN PRN XX WOUND CARE; Start 07/20/18 at 01:30 Insulin Aspart (Novolog Insulin Pen) NOVOLOG *MODERATE* ALGORI... Q4 SC Last administered on 07/24/18 16:45; Admin Dose 4 UNIT; Start 07/20/18 at 17:00 Dexamethasone 40 mg/Sodium Chloride 54 ml @ 108 mls/hr Q24H IV Last administered on 07/24/18 12:48; Admin Dose 108 MLS/HR; Start 07/22/18 at 12:00; Stop 07/25/18 at 12:29 Insulin Glargine (Lantus) 10 units DAILY@2000 SC Last administered on 07/23/18 22:56; Admin Dose 10 UNITS; Start 07/22/18 at 20:00 Insulin Aspart (Novolog Insulin Pen) 10 unit BID SC Last administered on 07/24/18 09:07; Admin Dose 10 UNIT; Start 07/22/18 at 14:00 Lorazepam (Ativan) 0.5 mg Q6 PRN IV AGITATION/ANXIETY; Start 07/22/18 at 17:00 Insulin Human NPH (Humulin N) 12 unit Q24H SC Last administered on 4/25/19at 13:15; Admin Dose 12 UNIT; Start 07/24/18 at 12:00; Stop 07/25/18 at 12:29 Allergies: Coded Allergies: ciprofloxacin (Verified Allergy, Mild, ITCHINESS, RASH , 02/27/18) Penicillins (Verified Allergy, Unknown, 02/27/18) garlic (Verified Allergy, Unknown, 02/27/18) STOMACH UPSET linagliptin (Verified Allergy, Unknown, pancreatitis, 07/24/18) morphine (Verified Allergy, Unknown, 02/27/18) povidone-iodine (Verified Allergy, Unknown, RASH, 02/27/18) soap (Verified Allergy, Unknown, RASH, 02/27/18) Past Surgical History Past Surgical Hx: coronary bypass surgery, other (Status post bilateral BKA) Family History Significant Family History: diabetes, hypertension Social History Alcohol Use: none Smoking Status: Unknown if ever smoked Drug Use: none Exam/Review of Systems Exam Vitals Vital Signs Date Temp Pulse Resp B/P (MAP) Pulse Ox O2 O2 Flow FiO2 Time Delivery Rate 07/24/18 98 14 92 30 16:46 07/24/18 99.0 116/66 15:46 (83) 07/21/18 Mechanical 03:38 Ventilator Intake and Output 07/23/18 07/23/18 07/24/18 1515:00 23:00 07:00 IntakeIntake Total 1530 ml OutputOutput Total 450 ml BalanceBalance 1080 ml Constitutional: alert, oriented Neck: supple, non-tender Respiratory: clear to auscultation, normal air movement Cardiovascular: nl pulses Gastrointestinal: soft, nl liver, spleen, non-tender Extremities: other (Bilateral BKA) Results Result Diagram: 07/23/18 0543 07/23/18 0543 Results 24hrs Laboratory Tests Test 07/23/18 22:08 07/24/18 01:55 07/24/18 06:15 07/24/18 08:56 Bedside Glucose 316 H 317 H 266 H 234 H Test 07/24/18 13:01 07/24/18 16:42 Bedside Glucose 181 183 Medications Medication Current Medications IV Flush (NS 3 ml) 3 ml PER PROTOCOL IV ; Start 07/19/18 at 19:30 Ondansetron HCl (Zofran Inj) 4 mg Q6H PRN IV NAUSEA/VOMITING; Start 07/19/18 at 19:30 Acetaminophen (Tylenol Tab) 650 mg Q6H PRN PO .PAIN 1-3 OR TEMP Last administered on 07/20/18 10:01; Admin Dose 650 MG; Start 07/19/18 at 19:30 Morphine Sulfate (morphine) 2 mg Q4H PRN IV .PAIN 8-10 Last administered on 07/24/18 08:52; Admin Dose 2 MG; Start 07/19/18 at 19:30 Acetaminophen (Tylenol Tab) 650 mg Q6H PRN PO MILD TO MODERATE PAIN; Start 07/19/18 at 19:30 Ascorbic Acid (Vitamin C) 500 mg DAILY PO Last administered on 07/24/18 08:46; Admin Dose 500 MG; Start 07/20/18 at 09:00 Atorvastatin Calcium (Lipitor) 20 mg QHS PO Last administered on 07/23/18 22:11; Admin Dose 20 MG; Start 07/19/18 at 21:00 Duloxetine HCl (Cymbalta) 30 mg DAILY PO Last administered on 07/24/18 08:46; Admin Dose 30 MG; Start 07/20/18 at 09:00 Ferrous Sulfate (Ferrous Sulfate (Ec)) 325 mg DAILY PO Last administered on 07/24/18 08:47; Admin Dose 325 MG; Start 07/20/18 at 09:00 Gabapentin (Neurontin) 400 mg Q8 PO Last administered on 07/24/18 16:33; Admin Dose 400 MG; Start 07/19/18 at 22:00 Hydralazine HCl (Apresoline) 50 mg Q8 PO Last administered on 07/24/18 06:12; Admin Dose 50 MG; Start 07/19/18 at 22:00 Isosorbide Dinitrate (Isordil) 10 mg TID PO Last administered on 07/24/18 12:49; Admin Dose 10 MG; Start 07/19/18 at 21:00 Metoprolol Tartrate (Lopressor) 50 mg Q8 PO Last administered on 07/24/18 16:33; Admin Dose 50 MG; Start 07/19/18 at 22:00 Multivitamins Therapeutic (Theragran) 1 tab DAILY PO Last administered on 07/24/18 08:47; Admin Dose 1 TAB; Start 07/20/18 at 09:00 Nitroglycerin (Nitroglycerin (Sl Tab) 0.4 Mg) 1 tab [id number] PRN SL CHEST PAIN; Start 07/19/18 at 19:30 Ondansetron HCl (Zofran Tab) 4 mg Q4H PRN PO NAUSEA AND/OR VOMITING; Start 07/19/18 at 19:30 Pantoprazole (Protonix Tab) 40 mg AC BREAKFAST PO Last administered on 07/24/18 06:12; Admin Dose 40 MG; Start 07/20/18 at 07:00 Senna (Senokot) 1 tab BID PO Last administered on 07/24/18 08:47; Admin Dose 1 TAB; Start 07/19/18 at 21:00 Tramadol HCl (Ultram) 50 mg Q6H PRN PO PAIN LEVEL 4-7 Last administered on 07/22/18 00:20; Admin Dose 50 MG; Start 07/19/18 at 19:30 Miscellaneous Information (Pending [facility] Order For Wound Care) This patient pedro... PRN PRN XX WOUND CARE; Start 07/20/18 at 01:30 Insulin Aspart (Novolog Insulin Pen) NOVOLOG *MODERATE* ALGORI... Q4 SC Last administered on 07/24/18 16:45; Admin Dose 4 UNIT; Start 07/20/18 at 17:00 Dexamethasone 40 mg/Sodium Chloride 54 ml @ 108 mls/hr Q24H IV Last administered on 07/24/18 12:48; Admin Dose 108 MLS/HR; Start 07/22/18 at 12:00; Stop 07/25/18 at 12:29 Insulin Glargine (Lantus) 10 units DAILY@2000 SC Last administered on 07/23/18 22:56; Admin Dose 10 UNITS; Start 07/22/18 at 20:00 Insulin Aspart (Novolog Insulin Pen) 10 unit BID SC Last administered on 07/24/18 09:07; Admin Dose 10 UNIT; Start 07/22/18 at 14:00 Lorazepam (Ativan) 0.5 mg Q6 PRN IV AGITATION/ANXIETY; Start 07/22/18 at 17:00 Insulin Human NPH (Humulin N) 12 unit Q24H SC Last administered on 07/24/18 13:15; Admin Dose 12 UNIT; Start 07/24/18 at 12:00; Stop 07/25/18 at 12:29 DORIAN ACOSTA MD Jul 24, 2018 18:11
--- NOTE | 2018-07-24 20:31 | PN ---
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 Pt continued on Prednisone. - per hematology consultation. -VDRF with tracheostomy on 02/19/18. - per pulmonary - Azotemia - nephro consult appreciated - monitor renal functions -Hx of Atrial fibrillation and atrial flutter. - unable to tolerate anticoagulation due to severe thrombocytopenia. 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 BS elevated - Continue Lantus and NovoLog. - per Endo consult -Anemia, monitor H&H. - Dysphagia -SP PEG placement on 02/19/18. -Colostomy -Bilateral BKA -Major depressive disorder -Hx of Stage III sacral decubitus ulcer Further recommendations based on clinical course. Plan of care discussed with Dr. Villatoro. - NAD - afebrile -SBP 101 - lethargic - no new events reported last night Result Diagram: 07/23/18 0543 07/23/18 0543 Results 24hrs Laboratory Tests Test 07/23/18 22:08 07/24/18 01:55 07/24/18 06:15 07/24/18 08:56 Bedside Glucose 316 H 317 H 266 H 234 H Test 07/24/18 13:01 07/24/18 16:42 Bedside Glucose 181 183 Subjective 24 Hr Interval Summary Free Text/Dictation NAD No new events reported last night Subjective hx not possible: pt non-verbal Constitutional: requiring O2 Exam/Review of Systems Exam Vitals Vital Signs Date Temp Pulse Resp B/P (MAP) Pulse Ox O2 O2 Flow FiO2 Time Delivery Rate 07/24/18 98.4 102 18 127/73 98 19:42 (91) 07/24/18 30 16:46 07/21/18 Mechanical 03:38 Ventilator Intake and Output 07/23/18 07/23/18 07/24/18 1515:00 23:00 07:00 IntakeIntake Total 1530 ml OutputOutput Total 450 ml BalanceBalance 1080 ml Constitutional: well developed, non-verbal Psych: nl mood/affect Eyes: nl lids, nl sclera ENMT: nl external ears & nose Respiratory: clear to auscultation Cardiovascular: nl pulses Gastrointestinal: soft, non-tender, other (gt/colostomy) Musculoskeletal: muscle weakness, range of motion, other Neurological: confused Skin: other (decubs) Results Results 24hrs Laboratory Tests Test 07/23/18 22:08 07/24/18 01:55 07/24/18 06:15 07/24/18 08:56 Bedside Glucose 316 H 317 H 266 H 234 H Test 07/24/18 13:01 07/24/18 16:42 Bedside Glucose 181 183 Medications Medication Current Medications IV Flush (NS 3 ml) 3 ml PER PROTOCOL IV ; Start 07/19/18 at 19:30 Ondansetron HCl (Zofran Inj) 4 mg Q6H PRN IV NAUSEA/VOMITING; Start 07/19/18 at 19:30 Acetaminophen (Tylenol Tab) 650 mg Q6H PRN PO .PAIN 1-3 OR TEMP Last administered on 07/20/18at 10:01; Admin Dose 650 MG; Start 07/19/18 at 19:30 Morphine Sulfate (morphine) 2 mg Q4H PRN IV .PAIN 8-10 Last administered on 07/24/18at 08:52; Admin Dose 2 MG; Start 07/19/18 at 19:30 Acetaminophen (Tylenol Tab) 650 mg Q6H PRN PO MILD TO MODERATE PAIN; Start 07/19/18 at 19:30 Ascorbic Acid (Vitamin C) 500 mg DAILY PO Last administered on 07/24/18 08:46; Admin Dose 500 MG; Start 07/20/18 at 09:00 Atorvastatin Calcium (Lipitor) 20 mg QHS PO Last administered on 07/23/18 22:11; Admin Dose 20 MG; Start 07/19/18 at 21:00 Duloxetine HCl (Cymbalta) 30 mg DAILY PO Last administered on 07/24/18 08:46; Admin Dose 30 MG; Start 07/20/18 at 09:00 Ferrous Sulfate (Ferrous Sulfate (Ec)) 325 mg DAILY PO Last administered on 07/24/18 08:47; Admin Dose 325 MG; Start 07/20/18 at 09:00 Gabapentin (Neurontin) 400 mg Q8 PO Last administered on 07/24/18 16:33; Admin Dose 400 MG; Start 07/19/18 at 22:00 Hydralazine HCl (Apresoline) 50 mg Q8 PO Last administered on 07/24/18 06:12; Admin Dose 50 MG; Start 07/19/18 at 22:00 Isosorbide Dinitrate (Isordil) 10 mg TID PO Last administered on 07/24/18 12:49; Admin Dose 10 MG; Start 07/19/18 at 21:00 Metoprolol Tartrate (Lopressor) 50 mg Q8 PO Last administered on 07/24/18 16:33; Admin Dose 50 MG; Start 07/19/18 at 22:00 Multivitamins Therapeutic (Theragran) 1 tab DAILY PO Last administered on 07/24/18 08:47; Admin Dose 1 TAB; Start 07/20/18 at 09:00 Nitroglycerin (Nitroglycerin (Sl Tab) 0.4 Mg) 1 tab [id number] PRN SL CHEST PAIN; Start 07/19/18 at 19:30 Ondansetron HCl (Zofran Tab) 4 mg Q4H PRN PO NAUSEA AND/OR VOMITING; Start 07/19/18 at 19:30 Pantoprazole (Protonix Tab) 40 mg AC BREAKFAST PO Last administered on 07/24/18 06:12; Admin Dose 40 MG; Start 07/20/18 at 07:00 Senna (Senokot) 1 tab BID PO Last administered on 07/24/18 08:47; Admin Dose 1 TAB; Start 07/19/18 at 21:00 Tramadol HCl (Ultram) 50 mg Q6H PRN PO PAIN LEVEL 4-7 Last administered on 07/22/18 00:20; Admin Dose 50 MG; Start 07/19/18 at 19:30 [facility] This patient pedro... PRN PRN XX WOUND CARE; Start 07/20/18 at 01:30 Insulin Aspart (Novolog Insulin Pen) NOVOLOG *MODERATE* ALGORI... Q4 SC Last administered on 07/24/18 16:45; Admin Dose 4 UNIT; Start 07/20/18 at 17:00 Dexamethasone 40 mg/Sodium Chloride 54 ml @ 108 mls/hr Q24H IV Last administered on 07/24/18 12:48; Admin Dose 108 MLS/HR; Start 07/22/18 at 12:00; Stop 07/25/18 at 12:29 Insulin Glargine (Lantus) 10 units DAILY@2000 SC Last administered on 07/23/18 22:56; Admin Dose 10 UNITS; Start 07/22/18 at 20:00 Insulin Aspart (Novolog Insulin Pen) 10 unit BID SC Last administered on 07/24/18 09:07; Admin Dose 10 UNIT; Start 07/22/18 at 14:00 Lorazepam (Ativan) 0.5 mg Q6 PRN IV AGITATION/ANXIETY; Start 07/22/18 at 17:00 Insulin Human NPH (Humulin N) 12 unit Q24H SC Last administered on 07/24/18at 13:15; Admin Dose 12 UNIT; Start 07/24/18 at 12:00; Stop 07/25/18 at 12:29 LES TRENT Jul 24, 2018 20:31
[2018-07-24] MEDS: ATORVASTATIN 20 MG TAB PO SCH (22:09)
[2018-07-24] MEDS: INSULIN GLARGINE [LANTus] (100 UNITS/ML) SYG SC SCH (22:32)
[2018-07-25] VITALS (23 sets, daily range): BP systolic 114–130; BP diastolic 61–79; PULSE 58–104; RESP 14–21
[2018-07-25] MEDS: INSULIN ASPART [NOVOLOG] 3 ML PEN SC SCH ×7 (01:39→22:01)
[2018-07-25] MEDS: METOPROLOL 50 MG TAB PO SCH ×3 (05:36→21:51)
[2018-07-25] MEDS: GABAPENTIN 400 MG CAP PO SCH ×3 (05:36→21:50)
[2018-07-25] MEDS: LANSOPRAZOLE 30 MG CAP GTB SCH (05:36)
[2018-07-25] MEDS: ASCORBIC ACID 500 MG TAB PO SCH (09:08)
[2018-07-25] MEDS: MULTIVITAMINS THERAPEUTIC TAB PO SCH (09:09)
[2018-07-25] MEDS: DULOXETINE 30 MG CAP DR PO SCH (09:09)
[2018-07-25] MEDS: SENNA TAB PO SCH ×2 (09:09→21:50)
[2018-07-25] MEDS: ISOSORBIDE DINITRATE 10 MG TAB PO SCH ×3 (09:09→21:50)
[2018-07-25] MEDS: FERROUS SULFATE (EC) 325 MG TAB PO SCH (09:09)
--- NOTE | 2018-07-25 11:40 | CONS ---
Consult Date/Type/Reason Admit Date/Time Jul 19, 2018 at 18:40 Initial Consult Date 07/22/18 Type of Consult Pulmonary Requesting Provider: LES TRENT Date/Time of Note DATE: 07/25/18 TIME: 11:40 Subjective Patient stable this morning no respiratory distress Objective Vital Signs Date Temp Pulse Resp B/P (MAP) Pulse Ox O2 O2 Flow FiO2 Time Delivery Rate 07/25/18 80 17 98 30 09:17 07/25/18 98.1 130/61 Mechanical 08:02 (84) Ventilator Intake and Output 07/24/18 07/24/18 07/25/18 1414:59 22:59 06:59 IntakeIntake Total 1230 ml 940 ml BalanceBalance 1230 ml 940 ml Exam PHYSICAL EXAMINATION: GENERAL: Chronically ill appearing gentleman, appears comfortable at rest, in no acute distress. VITAL SIGNS: NECK: Supple. Trach site is clean and intact. CARDIAC: S1, S2. No added sounds or murmurs. CHEST: Diminished air entry bilaterally. ABDOMEN: Soft, nontender. No guarding or rebound. EXTREMITIES: No cyanosis, clubbing or edema. NEUROLOGIC: Generalized weakness. Vent Setting Ventilator Support Mode: AC Fraction of Inspired Oxygen pe: 30 Positive End Expiratory Pressu: 5.0 Results/Medications Result Diagram: 07/25/18 0550 07/25/18 0550 Results 24 hrs Laboratory Tests Test 07/24/18 13:01 07/24/18 16:42 07/24/18 22:07 07/25/18 01:33 Bedside Glucose 181 183 220 232 H Test 07/25/18 05:34 07/25/18 05:50 07/25/18 07:54 Bedside Glucose 257 H 291 H White Blood Count 7.6 # Red Blood Count 2.79 L Hemoglobin 7.6 L Hematocrit 24.3 L Mean Corpuscular 87.1 Volume Mean Corpuscular 27.2 L Hemoglobin Mean Corpuscular 31.3 L Hemoglobin Concent Red Cell 17.2 H Distribution Width Platelet Count 33 #L Mean Platelet 13.7 #H Volume Immature 1.000 H Granulocytes % Neutrophils % Segmented 76 Neutrophils % (Manual) Band Neutrophils % 13 H (Manual) Lymphocytes % Lymphocytes % 8 L (Manual) Monocytes % Monocytes % 2 (Manual) Eosinophils % Basophils % Myelocytes % 1 H (Manual) Nucleated Red 3 H Blood Cells % Immature 0.080 H Granulocytes # Neutrophils # Neutrophils # 5.8 (Manual) Band Neutrophils # 0.9 H Lymphocytes 0.6 L (Manual) Lymphocytes # Monocytes # Monocytes # 0.1 L (Manual) Eosinophils # Basophils # Myelocytes # 0.0 Nucleated Red Blood Cells # Platelet Estimate SIG DECREASED Giant Platelets 1 H Polychromasia 2+ Hypochromasia 1+ Anisocytosis 2+ Microcytosis 2+ Sodium Level 137 Potassium Level 5.2 H Chloride Level 97 Carbon Dioxide 32 H Level Anion Gap 8 Blood Urea 92 H Nitrogen Creatinine 0.97 Est Glomerular > 60 Filtrat Rate mL/min Glucose Level 245 H Calcium Level 8.3 L Medications Current Medications IV Flush (NS 3 ml) 3 ml PER PROTOCOL IV ; Start 07/19/18 at 19:30 Ondansetron HCl (Zofran Inj) 4 mg Q6H PRN IV NAUSEA/VOMITING; Start 07/19/18 at 19:30 Acetaminophen (Tylenol Tab) 650 mg Q6H PRN PO .PAIN 1-3 OR TEMP Last administered on 07/20/18 10:01; Admin Dose 650 MG; Start 07/19/18 at 19:30 Morphine Sulfate (morphine) 2 mg Q4H PRN IV .PAIN 8-10 Last administered on 07/24/18 23:31; Admin Dose 2 MG; Start 07/19/18 at 19:30 Acetaminophen (Tylenol Tab) 650 mg Q6H PRN PO MILD TO MODERATE PAIN; Start 07/19/18 at 19:30 Ascorbic Acid (Vitamin C) 500 mg DAILY PO Last administered on 07/25/18 09:08; Admin Dose 500 MG; Start 07/20/18 at 09:00 Atorvastatin Calcium (Lipitor) 20 mg QHS PO Last administered on 07/24/18 22:09; Admin Dose 20 MG; Start 07/19/18 at 21:00 Duloxetine HCl (Cymbalta) 30 mg DAILY PO Last administered on 07/25/18 09:09; Admin Dose 30 MG; Start 07/20/18 at 09:00 Ferrous Sulfate (Ferrous Sulfate (Ec)) 325 mg DAILY PO Last administered on 07/25/18 09:09; Admin Dose 325 MG; Start 07/20/18 at 09:00 Gabapentin (Neurontin) 400 mg Q8 PO Last administered on 07/25/18 05:36; Admin Dose 400 MG; Start 07/19/18 at 22:00 Hydralazine HCl (Apresoline) 50 mg Q8 PO Last administered on 07/25/18 05:36; Admin Dose 50 MG; Start 07/19/18 at 22:00 Isosorbide Dinitrate (Isordil) 10 mg TID PO Last administered on 07/25/18 09:09; Admin Dose 10 MG; Start 07/19/18 at 21:00 Metoprolol Tartrate (Lopressor) 50 mg Q8 PO Last administered on 07/25/18 05:36; Admin Dose 50 MG; Start 07/19/18 at 22:00 Multivitamins Therapeutic (Theragran) 1 tab DAILY PO Last administered on 07/25/18 09:09; Admin Dose 1 TAB; Start 07/20/18 at 09:00 Nitroglycerin (Nitroglycerin (Sl Tab) 0.4 Mg) 1 tab [id number] PRN SL CHEST PAIN; Start 07/19/18 at 19:30 Ondansetron HCl (Zofran Tab) 4 mg Q4H PRN PO NAUSEA AND/OR VOMITING; Start 07/19/18 at 19:30 Senna (Senokot) 1 tab BID PO Last administered on 07/25/18 09:09; Admin Dose 1 TAB; Start 07/19/18 at 21:00 Tramadol HCl (Ultram) 50 mg Q6H PRN PO PAIN LEVEL 4-7 Last administered on 07/22/18 00:20; Admin Dose 50 MG; Start 07/19/18 at 19:30 Miscellaneous Information (Pending [facility] Order For Wound Care) This patient pedro... PRN PRN XX WOUND CARE; Start 07/20/18 at 01:30 Insulin Aspart (Novolog Insulin Pen) NOVOLOG *MODERATE* ALGORI... Q4 SC Last administered on 07/25/18 08:02; Admin Dose 8 UNIT; Start 07/20/18 at 17:00 Dexamethasone 40 mg/Sodium Chloride 54 ml @ 108 mls/hr Q24H IV Last administered on 07/24/18 12:48; Admin Dose 108 MLS/HR; Start 07/22/18 at 12:00; Stop 07/25/18 at 12:29 Insulin Glargine (Lantus) 10 units DAILY@2000 SC Last administered on 07/24/18at 22:32; Admin Dose 10 UNITS; Start 07/22/18 at 20:00 Insulin Aspart (Novolog Insulin Pen) 10 unit BID SC Last administered on at 08:02; Admin Dose 10 UNIT; Start 07/22/18 at 14:00 Lorazepam (Ativan) 0.5 mg Q6 PRN IV AGITATION/ANXIETY; Start 07/22/18 at 17:00 Insulin Human NPH (Humulin N) 12 unit Q24H SC Last administered on 07/24/18at 13:15; Admin Dose 12 UNIT; Start 07/24/18 at 12:00; Stop 07/25/18 at 12:29 Lansoprazole (Prevacid) 30 mg DAILY@06 GTB Last administered on 07/25/18at 05:36; Admin Dose 30 MG; Start 07/25/18 at 06:00 Assessment/Plan Hospital Course (Demo Recall) IMPRESSION AND PLAN: 1. Ventilator-dependent respiratory failure. 2. 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 3. Dysphagia with G-tube. 4. Anemia no active GI bleeding PLAN: 1. Continue steroids for immunosuppressive therapy for peripheral platelet destruction. Hematology oncology recommendations 2. Continue vent support. 3. Tube feeding as tolerated. 4. Cardiac recommendations. AMOS CLEMENTS MD, [facility] Jul 25, 2018 11:40
[2018-07-25] MEDS: NPH, HUMAN INSULIN ISOPHANE 3ML VIAL SC SCH (12:00)
--- NOTE | 2018-07-25 13:29 | CONS ---
Assessment/Plan Assessment/Plan Assessment/Plan (Daily) 1. Metabolic alkalosis due to prerenal azotemia 2. acute prerenal azotemia 3. ITP 4. severe thrombocytopenia 5. accelerated HTN Plan: Continue Hydralazine 50mg PO Q8 hr and MTP 50mg pO Q 8 hr K 5.2, BUN/Cr 92/0.97, kayexalate 15 gram PO x 1 dose now will follow up Consultation Date/Type/Reason Admit Date/Time Jul 19, 2018 at 18:40 Initial Consult Date 07/22/18 Type of Consult NEPHROLOGY Requesting Provider: LES TRENT Date/Time of Note DATE: 07/25/18 TIME: 13:29 24 HR Interval Summary Free Text/Dictation K 5.2, BUN/Cr 92/0.97, BP stable Exam/Review of Systems Exam Vitals Vital Signs Date Temp Pulse Resp B/P (MAP) Pulse Ox O2 O2 Flow FiO2 Time Delivery Rate 07/25/18 60 12:45 07/25/18 98.7 16 127/67 100 Mechanical 11:59 (87) Ventilator 07/25/18 30 11:15 Intake and Output 07/24/18 07/24/18 07/25/18 1515:00 23:00 07:00 IntakeIntake Total 1230 ml 940 ml BalanceBalance 1230 ml 940 ml Exam Constitutional: alert, awake Respiratory: clear to auscultation, normal air movement, diminished breath sounds Cardiovascular: regular rate and rhythm, nl pulses Gastrointestinal: soft, non-tender Musculoskeletal: nl extremities to inspection, muscle weakness, swelling Extremities: normal pulses Neurological: LOG PREPARER II-XII intact, nl mental status, nl speech, nl strength Skin: nl turgor Lymph: nl lymph nodes Results Result Diagram: 07/25/18 0550 07/25/18 0550 Results 24hrs Laboratory Tests Test 07/24/18 16:42 07/24/18 22:07 07/25/18 01:33 07/25/18 05:34 Bedside Glucose 183 220 232 H 257 H Test 07/25/18 05:50 07/25/18 07:54 White Blood Count 7.6 # Red Blood Count 2.79 L Hemoglobin 7.6 L Hematocrit 24.3 L Mean Corpuscular 87.1 Volume Mean Corpuscular 27.2 L Hemoglobin Mean Corpuscular 31.3 L Hemoglobin Concent Red Cell 17.2 H Distribution Width Platelet Count 33 #L Mean Platelet 13.7 #H Volume Immature 1.000 H Granulocytes % Neutrophils % Segmented 76 Neutrophils % (Manual) Band Neutrophils % 13 H (Manual) Lymphocytes % Lymphocytes % 8 L (Manual) Monocytes % Monocytes % 2 (Manual) Eosinophils % Basophils % Myelocytes % 1 H (Manual) Nucleated Red 3 H Blood Cells % Immature 0.080 H Granulocytes # Neutrophils # Neutrophils # 5.8 (Manual) Band Neutrophils # 0.9 H Lymphocytes 0.6 L (Manual) Lymphocytes # Monocytes # Monocytes # 0.1 L (Manual) Eosinophils # Basophils # Myelocytes # 0.0 Nucleated Red Blood Cells # Platelet Estimate SIG DECREASED Giant Platelets 1 H Polychromasia 2+ Hypochromasia 1+ Anisocytosis 2+ Microcytosis 2+ Sodium Level 137 Potassium Level 5.2 H Chloride Level 97 Carbon Dioxide 32 H Level Anion Gap 8 Blood Urea 92 H Nitrogen Creatinine 0.97 Est Glomerular > 60 Filtrat Rate mL/min Glucose Level 245 H Calcium Level 8.3 L Bedside Glucose 291 H Medications Medication Current Medications IV Flush (NS 3 ml) 3 ml PER PROTOCOL IV ; Start 07/19/18 at 19:30 Ondansetron HCl (Zofran Inj) 4 mg Q6H PRN IV NAUSEA/VOMITING; Start 07/19/18 at 19:30 Acetaminophen (Tylenol Tab) 650 mg Q6H PRN PO .PAIN 1-3 OR TEMP Last administered on 07/20/18at 10:01; Admin Dose 650 MG; Start 07/19/18 at 19:30 Morphine Sulfate (morphine) 2 mg Q4H PRN IV .PAIN 8-10 Last administered on 07/24/18at 23:31; Admin Dose 2 MG; Start 07/19/18 at 19:30 Acetaminophen (Tylenol Tab) 650 mg Q6H PRN PO MILD TO MODERATE PAIN; Start 07/19/18 at 19:30 Ascorbic Acid (Vitamin C) 500 mg DAILY PO Last administered on 07/25/18at 09:08; Admin Dose 500 MG; Start 07/20/18 at 09:00 Atorvastatin Calcium (Lipitor) 20 mg QHS PO Last administered on 07/24/18at 22:09; Admin Dose 20 MG; Start 07/19/18 at 21:00 Duloxetine HCl (Cymbalta) 30 mg DAILY PO Last administered on 07/25/18 09:09; Admin Dose 30 MG; Start 07/20/18 at 09:00 Ferrous Sulfate (Ferrous Sulfate (Ec)) 325 mg DAILY PO Last administered on 07/25/18 09:09; Admin Dose 325 MG; Start 07/20/18 at 09:00 Gabapentin (Neurontin) 400 mg Q8 PO Last administered on 07/25/18 05:36; Admin Dose 400 MG; Start 07/19/18 at 22:00 Hydralazine HCl (Apresoline) 50 mg Q8 PO Last administered on 07/25/18 05:36; Admin Dose 50 MG; Start 07/19/18 at 22:00 Isosorbide Dinitrate (Isordil) 10 mg TID PO Last administered on 07/25/18 09:09; Admin Dose 10 MG; Start 07/19/18 at 21:00 Metoprolol Tartrate (Lopressor) 50 mg Q8 PO Last administered on 07/25/18 05:36; Admin Dose 50 MG; Start 07/19/18 at 22:00 Multivitamins Therapeutic (Theragran) 1 tab DAILY PO Last administered on 07/25/18 09:09; Admin Dose 1 TAB; Start 07/20/18 at 09:00 Nitroglycerin (Nitroglycerin (Sl Tab) 0.4 Mg) 1 tab [id number] PRN SL CHEST PAIN; Start 07/19/18 at 19:30 Ondansetron HCl (Zofran Tab) 4 mg Q4H PRN PO NAUSEA AND/OR VOMITING; Start 07/19/18 at 19:30 Senna (Senokot) 1 tab BID PO Last administered on 07/25/18 09:09; Admin Dose 1 TAB; Start 07/19/18 at 21:00 Tramadol HCl (Ultram) 50 mg Q6H PRN PO PAIN LEVEL 4-7 Last administered on 07/22/18 00:20; Admin Dose 50 MG; Start 07/19/18 at 19:30 [facility] This patient pedro... PRN PRN XX WOUND CARE; Start 07/20/18 at 01:30 Insulin Aspart (Novolog Insulin Pen) NOVOLOG *MODERATE* ALGORI... Q4 SC Last administered on 07/25/18at 08:02; Admin Dose 8 UNIT; Start 07/20/18 at 17:00 Insulin Glargine (Lantus) 10 units DAILY@2000 SC Last administered on 07/24/18at 22:32; Admin Dose 10 UNITS; Start 07/22/18 at 20:00 Insulin Aspart (Novolog Insulin Pen) 10 unit BID SC Last administered on 07/25/18at 08:02; Admin Dose 10 UNIT; Start 07/22/18 at 14:00 Lorazepam (Ativan) 0.5 mg Q6 PRN IV AGITATION/ANXIETY; Start 07/22/18 at 17:00 Lansoprazole (Prevacid) 30 mg DAILY@06 GTB Last administered on 07/25/18at 05:36; Admin Dose 30 MG; Start 07/25/18 at 06:00 OCTAVIO BOX MD Jul 25, 2018 13:29
[2018-07-25] MEDS ORDERED: NA POLYST SULFON 15 GM/60 ML BTL PO ONE (13:30)
--- NOTE | 2018-07-25 13:41 | CONS ---
Assessment/Plan Assessment/Plan Hospital Course (Demo Recall) IMPRESSION: 1. Permanent pacemaker with proper function at this time, primarily AV pacing. No signs of dysfunction at this time. 2. History of paroxysmal atrial fibrillation and atrial flutter, had been off anticoagulation due to severe thrombocytopenia, has been started on anticoagulation, which was stopped at this time due to severe thrombocytopenia. 3. Hypertension. 4. Dyslipidemia. 5. History of aortic valve replacement, bioprosthesis in 06/2017. 6. History of coronary artery disease, status post coronary artery bypass graft surgery in 06/2017 using AHUJA to LAD. 7. 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 8. Diabetes mellitus. 9. Dysphagia, status post G-tube. 10. Chronic respiratory failure, status post tracheostomy. Recc: -Tele -Continue BB/hydralazine -Continue isordil -Holding antiplatelet/anticoagulation secondary to severe thrombocytopenia -Continue statin -Follow volume status closely Consultation Date/Type/Reason Admit Date/Time Jul 19, 2018 at 18:40 Initial Consult Date 07/22/18 Type of Consult Cardiology Reason for Consultation cardiomyopathy Requesting Provider: LES TRENT Date/Time of Note DATE: 07/25/18 TIME: 13:39 Exam/Review of Systems Vital Signs Vitals Vital Signs Date Temp Pulse Resp B/P (MAP) Pulse Ox O2 O2 Flow FiO2 Time Delivery Rate 07/25/18 80 15 98 30 13:27 07/25/18 98.7 127/67 Mechanical 11:59 (87) Ventilator Intake and Output 07/24/18 07/24/18 07/25/18 1515:00 23:00 07:00 IntakeIntake Total 1230 ml 940 ml BalanceBalance 1230 ml 940 ml Exam Exam Review of Systems: CONSTITUTIONAL: No fevers, chills. PULMONARY: No sob CARDIOVASCULAR: No chest pain/palpitations GASTROINTESTINAL: No nausea/vomiting. GENITOURINARY: No hematuria/dysuria. MUSCULOSKELETAL: No myagias/arthalgias. PSYCHIATRIC: The patient denies depression. NEUROLOGIC: No weakness Constitutional: alert Psych: no complaints Head: normocephalic ENMT: mucosa pink and moist Neck: supple, jvd (9 cm water) Respiratory: diminished breath sounds Cardiovascular: regular rate and rhythm Gastrointestinal: soft, non-tender Musculoskeletal: muscle tone (normal) Extremities: edema (none) Neurological: other (No focal deficits) Labs Result Diagram: 07/25/18 0550 07/25/18 0550 Results 24hrs Laboratory Tests Test 07/24/18 16:42 07/24/18 22:07 07/25/18 01:33 07/25/18 05:34 Bedside Glucose 183 220 232 H 257 H Test 07/25/18 05:50 07/25/18 07:54 White Blood Count 7.6 # Red Blood Count 2.79 L Hemoglobin 7.6 L Hematocrit 24.3 L Mean Corpuscular 87.1 Volume Mean Corpuscular 27.2 L Hemoglobin Mean Corpuscular 31.3 L Hemoglobin Concent Red Cell 17.2 H Distribution Width Platelet Count 33 #L Mean Platelet 13.7 #H Volume Immature 1.000 H Granulocytes % Neutrophils % Segmented 76 Neutrophils % (Manual) Band Neutrophils % 13 H (Manual) Lymphocytes % Lymphocytes % 8 L (Manual) Monocytes % Monocytes % 2 (Manual) Eosinophils % Basophils % Myelocytes % 1 H (Manual) Nucleated Red 3 H Blood Cells % Immature 0.080 H Granulocytes # Neutrophils # Neutrophils # 5.8 (Manual) Band Neutrophils # 0.9 H Lymphocytes 0.6 L (Manual) Lymphocytes # Monocytes # Monocytes # 0.1 L (Manual) Eosinophils # Basophils # Myelocytes # 0.0 Nucleated Red Blood Cells # Platelet Estimate SIG DECREASED Giant Platelets 1 H Polychromasia 2+ Hypochromasia 1+ Anisocytosis 2+ Microcytosis 2+ Sodium Level 137 Potassium Level 5.2 H Chloride Level 97 Carbon Dioxide 32 H Level Anion Gap 8 Blood Urea 92 H Nitrogen Creatinine 0.97 Est Glomerular > 60 Filtrat Rate mL/min Glucose Level 245 H Calcium Level 8.3 L Bedside Glucose 291 H Medications Medications Current Medications IV Flush (NS 3 ml) 3 ml PER PROTOCOL IV ; Start 07/19/18 at 19:30 Ondansetron HCl (Zofran Inj) 4 mg Q6H PRN IV NAUSEA/VOMITING; Start 07/19/18 at 19:30 Acetaminophen (Tylenol Tab) 650 mg Q6H PRN PO .PAIN 1-3 OR TEMP Last administered on 07/20/18at 10:01; Admin Dose 650 MG; Start 07/19/18 at 19:30 Morphine Sulfate (morphine) 2 mg Q4H PRN IV .PAIN 8-10 Last administered on 23:31; Admin Dose 2 MG; Start 07/19/18 at 19:30 Acetaminophen (Tylenol Tab) 650 mg Q6H PRN PO MILD TO MODERATE PAIN; Start 07/19/18 at 19:30 Ascorbic Acid (Vitamin C) 500 mg DAILY PO Last administered on 07/25/18 09:08; Admin Dose 500 MG; Start 07/20/18 at 09:00 Atorvastatin Calcium (Lipitor) 20 mg QHS PO Last administered on 07/24/18 22:09; Admin Dose 20 MG; Start 07/19/18 at 21:00 Duloxetine HCl (Cymbalta) 30 mg DAILY PO Last administered on 07/25/18 09:09; Admin Dose 30 MG; Start 07/20/18 at 09:00 Ferrous Sulfate (Ferrous Sulfate (Ec)) 325 mg DAILY PO Last administered on 09:09; Admin Dose 325 MG; Start 07/20/18 at 09:00 Gabapentin (Neurontin) 400 mg Q8 PO Last administered on 07/25/18 05:36; Admin Dose 400 MG; Start 07/19/18 at 22:00 Hydralazine HCl (Apresoline) 50 mg Q8 PO Last administered on 07/25/18 05:36; Admin Dose 50 MG; Start 07/19/18 at 22:00 Isosorbide Dinitrate (Isordil) 10 mg TID PO Last administered on 07/25/18 09:09; Admin Dose 10 MG; Start 07/19/18 at 21:00 Metoprolol Tartrate (Lopressor) 50 mg Q8 PO Last administered on 07/25/18 05:36; Admin Dose 50 MG; Start 07/19/18 at 22:00 Multivitamins Therapeutic (Theragran) 1 tab DAILY PO Last administered on 07/25/18 09:09; Admin Dose 1 TAB; Start 07/20/18 at 09:00 Nitroglycerin (Nitroglycerin (Sl Tab) 0.4 Mg) 1 tab [id number] PRN SL CHEST PAIN; Start 07/19/18 at 19:30 Ondansetron HCl (Zofran Tab) 4 mg Q4H PRN PO NAUSEA AND/OR VOMITING; Start 07/19/18 at 19:30 Senna (Senokot) 1 tab BID PO Last administered on 07/25/18at 09:09; Admin Dose 1 TAB; Start 07/19/18 at 21:00 Tramadol HCl (Ultram) 50 mg Q6H PRN PO PAIN LEVEL 4-7 Last administered on 07/22/18at 00:20; Admin Dose 50 MG; Start 07/19/18 at 19:30 Miscellaneous Information (Pending Santyl Order For Wound Care) This patient pedro... PRN PRN XX WOUND CARE; Start 07/20/18 at 01:30 Insulin Aspart (Novolog Insulin Pen) NOVOLOG *MODERATE* ALGORI... Q4 SC Last administered on 07/25/18at 08:02; Admin Dose 8 UNIT; Start 07/20/18 at 17:00 Insulin Glargine (Lantus) 10 units DAILY@2000 SC Last administered on 07/24/18at 22:32; Admin Dose 10 UNITS; Start 07/22/18 at 20:00 Insulin Aspart (Novolog Insulin Pen) 10 unit BID SC Last administered on 07/25/18at 08:02; Admin Dose 10 UNIT; Start 07/22/18 at 14:00 Lorazepam (Ativan) 0.5 mg Q6 PRN IV AGITATION/ANXIETY; Start 07/22/18 at 17:00 Lansoprazole (Prevacid) 30 mg DAILY@06 GTB Last administered on 07/25/18at 05:36; Admin Dose 30 MG; Start 07/25/18 at 06:00 RODGER MIRELES Jul 25, 2018 13:41
--- NOTE | 2018-07-25 13:55 | CONS ---
Assessment/Plan Assessment/Plan Hospital Course (Demo Recall) #ITP -diagnosed during the last admission, he had response to steroids and bone marrow bx consistent with peripheral destruction -past labs reveal + TERESE, negative HIT ab -given his platelet count of only 3K , he was started on Dexamethasone 40mg IV x 4 days to be followed by a slow prednisone steroid taper, once dex completed transition to Prednisone 1mg/kg daily with slow taper. plt count at 33K, start prednisone 80 mg daily tomorrow, will taper slowly as plt count allows -has been given IVIG 40 grams x 2 days -if patient does not respond will need to consider a course of Rituxan therapy, or other tx such as promacta or n plate Consultation Date/Type/Reason Admit Date/Time Jul 19, 2018 at 18:40 Initial Consult Date 07/22/18 Requesting Provider: LES TRENT Date/Time of Note DATE: 07/25/18 TIME: 13:55 24 HR Interval Summary Free Text/Dictation resting comfortably Exam/Review of Systems Exam Vitals Vital Signs Date Temp Pulse Resp B/P (MAP) Pulse Ox O2 O2 Flow FiO2 Time Delivery Rate 07/25/18 80 15 98 30 13:27 07/25/18 98.7 127/67 Mechanical 11:59 (87) Ventilator Intake and Output 07/24/18 07/24/18 07/25/18 1515:00 23:00 07:00 IntakeIntake Total 1230 ml 940 ml BalanceBalance 1230 ml 940 ml Constitutional: frail Psych: no complaints, nl mood/affect Head: normocephalic, atraumatic Neck: other (trach) Results Result Diagram: 07/25/18 0550 07/25/18 0550 Results 24hrs Laboratory Tests Test 07/24/18 16:42 07/24/18 22:07 07/25/18 01:33 07/25/18 05:34 Bedside Glucose 183 220 232 H 257 H Test 07/25/18 05:50 07/25/18 07:54 White Blood Count 7.6 # Red Blood Count 2.79 L Hemoglobin 7.6 L Hematocrit 24.3 L Mean Corpuscular 87.1 Volume Mean Corpuscular 27.2 L Hemoglobin Mean Corpuscular 31.3 L Hemoglobin Concent Red Cell 17.2 H Distribution Width Platelet Count 33 #L Mean Platelet 13.7 #H Volume Immature 1.000 H Granulocytes % Neutrophils % Segmented 76 Neutrophils % (Manual) Band Neutrophils % 13 H (Manual) Lymphocytes % Lymphocytes % 8 L (Manual) Monocytes % Monocytes % 2 (Manual) Eosinophils % Basophils % Myelocytes % 1 H (Manual) Nucleated Red 3 H Blood Cells % Immature 0.080 H Granulocytes # Neutrophils # Neutrophils # 5.8 (Manual) Band Neutrophils # 0.9 H Lymphocytes 0.6 L (Manual) Lymphocytes # Monocytes # Monocytes # 0.1 L (Manual) Eosinophils # Basophils # Myelocytes # 0.0 Nucleated Red Blood Cells # Platelet Estimate SIG DECREASED Giant Platelets 1 H Polychromasia 2+ Hypochromasia 1+ Anisocytosis 2+ Microcytosis 2+ Sodium Level 137 Potassium Level 5.2 H Chloride Level 97 Carbon Dioxide 32 H Level Anion Gap 8 Blood Urea 92 H Nitrogen Creatinine 0.97 Est Glomerular > 60 Filtrat Rate mL/min Glucose Level 245 H Calcium Level 8.3 L Bedside Glucose 291 H Medications Medication Current Medications IV Flush (NS 3 ml) 3 ml PER PROTOCOL IV ; Start 07/19/18 at 19:30 Ondansetron HCl (Zofran Inj) 4 mg Q6H PRN IV NAUSEA/VOMITING; Start 07/19/18 at 19:30 Acetaminophen (Tylenol Tab) 650 mg Q6H PRN PO .PAIN 1-3 OR TEMP Last administered on 07/20/18at 10:01; Admin Dose 650 MG; Start 07/19/18 at 19:30 Morphine Sulfate (morphine) 2 mg Q4H PRN IV .PAIN 8-10 Last administered on 07/24/18at 23:31; Admin Dose 2 MG; Start 07/19/18 at 19:30 Acetaminophen (Tylenol Tab) 650 mg Q6H PRN PO MILD TO MODERATE PAIN; Start 07/19/18 at 19:30 Ascorbic Acid (Vitamin C) 500 mg DAILY PO Last administered on 07/25/18 09:08; Admin Dose 500 MG; Start 07/20/18 at 09:00 Atorvastatin Calcium (Lipitor) 20 mg QHS PO Last administered on 07/24/18 22:09; Admin Dose 20 MG; Start 07/19/18 at 21:00 Duloxetine HCl (Cymbalta) 30 mg DAILY PO Last administered on 07/25/18 09:09; Admin Dose 30 MG; Start 07/20/18 at 09:00 Ferrous Sulfate (Ferrous Sulfate (Ec)) 325 mg DAILY PO Last administered on 07/25/18 09:09; Admin Dose 325 MG; Start 07/20/18 at 09:00 Gabapentin (Neurontin) 400 mg Q8 PO Last administered on 07/25/18 05:36; Admin Dose 400 MG; Start 07/19/18 at 22:00 Hydralazine HCl (Apresoline) 50 mg Q8 PO Last administered on 07/25/18 05:36; Admin Dose 50 MG; Start 07/19/18 at 22:00 Isosorbide Dinitrate (Isordil) 10 mg TID PO Last administered on 07/25/18 09:09; Admin Dose 10 MG; Start 07/19/18 at 21:00 Metoprolol Tartrate (Lopressor) 50 mg Q8 PO Last administered on 07/25/18 05:36; Admin Dose 50 MG; Start 07/19/18 at 22:00 Multivitamins Therapeutic (Theragran) 1 tab DAILY PO Last administered on 07/25/18 09:09; Admin Dose 1 TAB; Start 07/20/18 at 09:00 Nitroglycerin (Nitroglycerin (Sl Tab) 0.4 Mg) 1 tab [id number] PRN SL CHEST PAIN; Start 07/19/18 at 19:30 Ondansetron HCl (Zofran Tab) 4 mg Q4H PRN PO NAUSEA AND/OR VOMITING; Start at 19:30 Senna (Senokot) 1 tab BID PO Last administered on 07/25/18 09:09; Admin Dose 1 TAB; Start 07/19/18 at 21:00 Tramadol HCl (Ultram) 50 mg Q6H PRN PO PAIN LEVEL 4-7 Last administered on 07/22/18 00:20; Admin Dose 50 MG; Start 07/19/18 at 19:30 Miscellaneous Information (Pending Santyl Order For Wound Care) This patient pedro... PRN PRN XX WOUND CARE; Start 07/20/18 at 01:30 Insulin Aspart (Novolog Insulin Pen) NOVOLOG *MODERATE* ALGORI... Q4 SC Last administered on 07/25/18 08:02; Admin Dose 8 UNIT; Start 07/20/18 at 17:00 Insulin Glargine (Lantus) 10 units DAILY@2000 SC Last administered on 07/24/18at 22:32; Admin Dose 10 UNITS; Start 07/22/18 at 20:00 Insulin Aspart (Novolog Insulin Pen) 10 unit BID SC Last administered on 07/25/18at 08:02; Admin Dose 10 UNIT; Start 07/22/18 at 14:00 Lorazepam (Ativan) 0.5 mg Q6 PRN IV AGITATION/ANXIETY; Start 07/22/18 at 17:00 Lansoprazole (Prevacid) 30 mg DAILY@06 GTB Last administered on 07/25/18at 05:36; Admin Dose 30 MG; Start 07/25/18 at 06:00 BART MONTOYA Jul 25, 2018 13:55
[2018-07-25] MEDS: SOD CHLORIDE 0.9% IV SCH (13:59)
[2018-07-25] MEDS: DEXAMETHASONE IV SCH (13:59)
--- NOTE | 2018-07-25 14:03 | PN ---
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 Pt continued on Prednisone. - per hematology consultation. -VDRF with tracheostomy on 02/19/18. - per pulmonary - Azotemia - per nephro - monitor renal functions -Hx of Atrial fibrillation and atrial flutter. - unable to tolerate anticoagulation due to severe thrombocytopenia. 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 BS elevated - Continue Lantus and NovoLog. - per Endo consult -Anemia, monitor H&H. - Dysphagia -SP PEG placement on 02/19/18. -Colostomy -Bilateral BKA -Major depressive disorder -Hx of Stage III sacral decubitus ulcer Further recommendations based on clinical course. Plan of care discussed with Dr. Villatoro. - NAD - afebrile -SBP 101 - lethargic - no new events reported last night Result Diagram: 07/25/18 0550 07/25/18 0550 Results 24hrs Laboratory Tests Test 07/24/18 16:42 07/24/18 22:07 07/25/18 01:33 07/25/18 05:34 Bedside Glucose 183 220 232 H 257 H Test 07/25/18 05:50 07/25/18 07:54 White Blood Count 7.6 # Red Blood Count 2.79 L Hemoglobin 7.6 L Hematocrit 24.3 L Mean Corpuscular 87.1 Volume Mean Corpuscular 27.2 L Hemoglobin Mean Corpuscular 31.3 L Hemoglobin Concent Red Cell 17.2 H Distribution Width Platelet Count 33 #L Mean Platelet 13.7 #H Volume Immature 1.000 H Granulocytes % Neutrophils % Segmented 76 Neutrophils % (Manual) Band Neutrophils % 13 H (Manual) Lymphocytes % Lymphocytes % 8 L (Manual) Monocytes % Monocytes % 2 (Manual) Eosinophils % Basophils % Myelocytes % 1 H (Manual) Nucleated Red 3 H Blood Cells % Immature 0.080 H Granulocytes # Neutrophils # Neutrophils # 5.8 (Manual) Band Neutrophils # 0.9 H Lymphocytes 0.6 L (Manual) Lymphocytes # Monocytes # Monocytes # 0.1 L (Manual) Eosinophils # Basophils # Myelocytes # 0.0 Nucleated Red Blood Cells # Platelet Estimate SIG DECREASED Giant Platelets 1 H Polychromasia 2+ Hypochromasia 1+ Anisocytosis 2+ Microcytosis 2+ Sodium Level 137 Potassium Level 5.2 H Chloride Level 97 Carbon Dioxide 32 H Level Anion Gap 8 Blood Urea 92 H Nitrogen Creatinine 0.97 Est Glomerular > 60 Filtrat Rate mL/min Glucose Level 245 H Calcium Level 8.3 L Bedside Glucose 291 H Subjective 24 Hr Interval Summary Free Text/Dictation NAD - Hyperkalemia- sp Kayexalate; fu BMP am No new event reported last night dw staff Subjective hx not possible: pt non-verbal Constitutional: requiring O2 Exam/Review of Systems Exam Vitals Vital Signs Date Temp Pulse Resp B/P (MAP) Pulse Ox O2 O2 Flow FiO2 Time Delivery Rate 07/25/18 80 15 98 30 13:27 07/25/18 98.7 127/67 Mechanical 11:59 (87) Ventilator Intake and Output 07/24/18 07/24/18 07/25/18 1515:00 23:00 07:00 IntakeIntake Total 1230 ml 940 ml BalanceBalance 1230 ml 940 ml Constitutional: alert, non-verbal Psych: nl mood/affect Eyes: nl lids, nl sclera ENMT: nl external ears & nose Neck: other (trach inatct) Respiratory: clear to auscultation, other Cardiovascular: nl pulses, other Gastrointestinal: soft, non-tender, other (gt intact/colostomy intact) Musculoskeletal: other (Bilateral BKA) Extremities: normal pulses Neurological: confused Skin: other (decub) Results Results 24hrs Laboratory Tests Test 07/24/18 16:42 07/24/18 22:07 07/25/18 01:33 07/25/18 05:34 Bedside Glucose 183 220 232 H 257 H Test 07/25/18 05:50 07/25/18 07:54 White Blood Count 7.6 # Red Blood Count 2.79 L Hemoglobin 7.6 L Hematocrit 24.3 L Mean Corpuscular 87.1 Volume Mean Corpuscular 27.2 L Hemoglobin Mean Corpuscular 31.3 L Hemoglobin Concent Red Cell 17.2 H Distribution Width Platelet Count 33 #L Mean Platelet 13.7 #H Volume Immature 1.000 H Granulocytes % Neutrophils % Segmented 76 Neutrophils % (Manual) Band Neutrophils % 13 H (Manual) Lymphocytes % Lymphocytes % 8 L (Manual) Monocytes % Monocytes % 2 (Manual) Eosinophils % Basophils % Myelocytes % 1 H (Manual) Nucleated Red 3 H Blood Cells % Immature 0.080 H Granulocytes # Neutrophils # Neutrophils # 5.8 (Manual) Band Neutrophils # 0.9 H Lymphocytes 0.6 L (Manual) Lymphocytes # Monocytes # Monocytes # 0.1 L (Manual) Eosinophils # Basophils # Myelocytes # 0.0 Nucleated Red Blood Cells # Platelet Estimate SIG DECREASED Giant Platelets 1 H Polychromasia 2+ Hypochromasia 1+ Anisocytosis 2+ Microcytosis 2+ Sodium Level 137 Potassium Level 5.2 H Chloride Level 97 Carbon Dioxide 32 H Level Anion Gap 8 Blood Urea 92 H Nitrogen Creatinine 0.97 Est Glomerular > 60 Filtrat Rate mL/min Glucose Level 245 H Calcium Level 8.3 L Bedside Glucose 291 H Medications Medication Current Medications IV Flush (NS 3 ml) 3 ml PER PROTOCOL IV ; Start 07/19/18 at 19:30 Ondansetron HCl (Zofran Inj) 4 mg Q6H PRN IV NAUSEA/VOMITING; Start 07/19/18 at 19:30 Acetaminophen (Tylenol Tab) 650 mg Q6H PRN PO .PAIN 1-3 OR TEMP Last administered on 07/20/18at 10:01; Admin Dose 650 MG; Start 07/19/18 at 19:30 Morphine Sulfate (morphine) 2 mg Q4H PRN IV .PAIN 8-10 Last administered on 07/24/18at 23:31; Admin Dose 2 MG; Start 07/19/18 at 19:30 Acetaminophen (Tylenol Tab) 650 mg Q6H PRN PO MILD TO MODERATE PAIN; Start 07/19/18 at 19:30 Ascorbic Acid (Vitamin C) 500 mg DAILY PO Last administered on 07/25/18 09:08; Admin Dose 500 MG; Start 07/20/18 at 09:00 Atorvastatin Calcium (Lipitor) 20 mg QHS PO Last administered on 07/24/18 22:09; Admin Dose 20 MG; Start 07/19/18 at 21:00 Duloxetine HCl (Cymbalta) 30 mg DAILY PO Last administered on 07/25/18 09:09; Admin Dose 30 MG; Start 07/20/18 at 09:00 Ferrous Sulfate (Ferrous Sulfate (Ec)) 325 mg DAILY PO Last administered on 07/25/18 09:09; Admin Dose 325 MG; Start 07/20/18 at 09:00 Gabapentin (Neurontin) 400 mg Q8 PO Last administered on 07/25/18 05:36; Admin Dose 400 MG; Start 07/19/18 at 22:00 Hydralazine HCl (Apresoline) 50 mg Q8 PO Last administered on 07/25/18 05:36; Admin Dose 50 MG; Start 07/19/18 at 22:00 Isosorbide Dinitrate (Isordil) 10 mg TID PO Last administered on 07/25/18 09:09; Admin Dose 10 MG; Start 07/19/18 at 21:00 Metoprolol Tartrate (Lopressor) 50 mg Q8 PO Last administered on 07/25/18 05:36; Admin Dose 50 MG; Start 07/19/18 at 22:00 Multivitamins Therapeutic (Theragran) 1 tab DAILY PO Last administered on 07/25/18 09:09; Admin Dose 1 TAB; Start 07/20/18 at 09:00 Nitroglycerin (Nitroglycerin (Sl Tab) 0.4 Mg) 1 tab [id number] PRN SL CHEST PAIN; Start 07/19/18 at 19:30 Ondansetron HCl (Zofran Tab) 4 mg Q4H PRN PO NAUSEA AND/OR VOMITING; Start 07/19/18 at 19:30 Senna (Senokot) 1 tab BID PO Last administered on 07/25/18 09:09; Admin Dose 1 TAB; Start 07/19/18 at 21:00 Tramadol HCl (Ultram) 50 mg Q6H PRN PO PAIN LEVEL 4-7 Last administered on 07/22/18 00:20; Admin Dose 50 MG; Start 07/19/18 at 19:30 Miscellaneous Information (Pending Santyl Order For Wound Care) This patient pedro... PRN PRN XX WOUND CARE; Start 07/20/18 at 01:30 Insulin Aspart (Novolog Insulin Pen) NOVOLOG *MODERATE* ALGORI... Q4 SC Last administered on 07/25/18at 08:02; Admin Dose 8 UNIT; Start 07/20/18 at 17:00 Insulin Glargine (Lantus) 10 units DAILY@2000 SC Last administered on 07/24/18at 22:32; Admin Dose 10 UNITS; Start 07/22/18 at 20:00 Insulin Aspart (Novolog Insulin Pen) 10 unit BID SC Last administered on 07/25/18at 08:02; Admin Dose 10 UNIT; Start 07/22/18 at 14:00 Lorazepam (Ativan) 0.5 mg Q6 PRN IV AGITATION/ANXIETY; Start 07/22/18 at 17:00 Lansoprazole (Prevacid) 30 mg DAILY@06 GTB Last administered on 07/25/18at 05:36; Admin Dose 30 MG; Start 07/25/18 at 06:00 LES TRENT Jul 25, 2018 14:03
--- NOTE | 2018-07-25 15:05 | CONS ---
Assessment/Plan Assessment/Plan Problems: (1) Diabetes mellitus type 2 with complications Status: Chronic Comment: As he is on continuous tube feeding I am going to go ahead and split up the longer acting insulin so we can get better control. Will fine-tune this to control Qualifiers: Diabetes mellitus lobsterman insulin use: with lobsterman use Qualified Codes: E11.8 - Type 2 diabetes mellitus with unspecified complications; Z79.4 - alf (current) use of insulin Consultation Date/Type/Reason Admit Date/Time Jul 19, 2018 at 18:40 Initial Consult Date 07/24/18 Type of Consult Endocrine Reason for Consultation Decelerations type II on continuous percutaneous endoscopic G-tube feedings Requesting Provider: LES TRENT Date/Time of Note DATE: 07/25/18 TIME: 15:04 24 HR Interval Summary Free Text/Dictation Patient more awake and alert today. Extremely depressed Constitutional: no complaints Detailed Summary Respiratory: no complaints Cardiovascular: no complaints Psychological: depression Exam/Review of Systems Exam Vitals Vital Signs Date Temp Pulse Resp B/P (MAP) Pulse Ox O2 O2 Flow FiO2 Time Delivery Rate 07/25/18 80 15 98 30 13:27 07/25/18 98.7 127/67 Mechanical 11:59 (87) Ventilator Intake and Output 07/24/18 07/24/18 07/25/18 1414:59 22:59 06:59 IntakeIntake Total 1230 ml 940 ml BalanceBalance 1230 ml 940 ml Constitutional: alert, oriented Cardiovascular: regular rate and rhythm, nl pulses Results Result Diagram: 07/25/18 0550 07/25/18 0550 Results 24hrs Laboratory Tests Test 07/24/18 16:42 07/24/18 22:07 07/25/18 01:33 07/25/18 05:34 Bedside Glucose 183 220 232 H 257 H Test 07/25/18 05:50 07/25/18 07:54 07/25/18 14:15 White Blood Count 7.6 # Red Blood Count 2.79 L Hemoglobin 7.6 L Hematocrit 24.3 L Mean Corpuscular 87.1 Volume Mean Corpuscular 27.2 L Hemoglobin Mean Corpuscular 31.3 L Hemoglobin Concent Red Cell 17.2 H Distribution Width Platelet Count 33 #L Mean Platelet 13.7 #H Volume Immature 1.000 H Granulocytes % Neutrophils % Segmented 76 Neutrophils % (Manual) Band Neutrophils % 13 H (Manual) Lymphocytes % Lymphocytes % 8 L (Manual) Monocytes % Monocytes % 2 (Manual) Eosinophils % Basophils % Myelocytes % 1 H (Manual) Nucleated Red 3 H Blood Cells % Immature 0.080 H Granulocytes # Neutrophils # Neutrophils # 5.8 (Manual) Band Neutrophils # 0.9 H Lymphocytes 0.6 L (Manual) Lymphocytes # Monocytes # Monocytes # 0.1 L (Manual) Eosinophils # Basophils # Myelocytes # 0.0 Nucleated Red Blood Cells # Platelet Estimate SIG DECREASED Giant Platelets 1 H Polychromasia 2+ Hypochromasia 1+ Anisocytosis 2+ Microcytosis 2+ Sodium Level 137 Potassium Level 5.2 H Chloride Level 97 Carbon Dioxide 32 H Level Anion Gap 8 Blood Urea 92 H Nitrogen Creatinine 0.97 Est Glomerular > 60 Filtrat Rate mL/min Glucose Level 245 H Calcium Level 8.3 L Bedside Glucose 291 H 253 H Medications Medication Current Medications IV Flush (NS 3 ml) 3 ml PER PROTOCOL IV ; Start 07/19/18 at 19:30 Ondansetron HCl (Zofran Inj) 4 mg Q6H PRN IV NAUSEA/VOMITING; Start 07/19/18 at 19:30 Acetaminophen (Tylenol Tab) 650 mg Q6H PRN PO .PAIN 1-3 OR TEMP Last administered on 07/20/18at 10:01; Admin Dose 650 MG; Start 07/19/18 at 19:30 Morphine Sulfate (morphine) 2 mg Q4H PRN IV .PAIN 8-10 Last administered on 07/24/18at 23:31; Admin Dose 2 MG; Start 07/19/18 at 19:30 Acetaminophen (Tylenol Tab) 650 mg Q6H PRN PO MILD TO MODERATE PAIN; Start 07/19/18 at 19:30 Ascorbic Acid (Vitamin C) 500 mg DAILY PO Last administered on 07/25/18 09:08; Admin Dose 500 MG; Start 07/20/18 at 09:00 Atorvastatin Calcium (Lipitor) 20 mg QHS PO Last administered on 07/24/18 22:09; Admin Dose 20 MG; Start 07/19/18 at 21:00 Duloxetine HCl (Cymbalta) 30 mg DAILY PO Last administered on 07/25/18 09:09; Admin Dose 30 MG; Start 07/20/18 at 09:00 Ferrous Sulfate (Ferrous Sulfate (Ec)) 325 mg DAILY PO Last administered on 07/25/18 09:09; Admin Dose 325 MG; Start 07/20/18 at 09:00 Gabapentin (Neurontin) 400 mg Q8 PO Last administered on 07/25/18 14:19; Admin Dose 400 MG; Start 07/19/18 at 22:00 Hydralazine HCl (Apresoline) 50 mg Q8 PO Last administered on 07/25/18 14:19; Admin Dose 50 MG; Start 07/19/18 at 22:00 Isosorbide Dinitrate (Isordil) 10 mg TID PO Last administered on 07/25/18 14:20; Admin Dose 10 MG; Start 07/19/18 at 21:00 Metoprolol Tartrate (Lopressor) 50 mg Q8 PO Last administered on 07/25/18 14:20; Admin Dose 50 MG; Start 07/19/18 at 22:00 Multivitamins Therapeutic (Theragran) 1 tab DAILY PO Last administered on 07/25/18 09:09; Admin Dose 1 TAB; Start 07/20/18 at 09:00 Nitroglycerin (Nitroglycerin (Sl Tab) 0.4 Mg) 1 tab [id number] PRN SL CHEST PAIN; Start 07/19/18 at 19:30 Ondansetron HCl (Zofran Tab) 4 mg Q4H PRN PO NAUSEA AND/OR VOMITING; Start 07/19/18 at 19:30 Senna (Senokot) 1 tab BID PO Last administered on 07/25/18 09:09; Admin Dose 1 TAB; Start 07/19/18 at 21:00 Tramadol HCl (Ultram) 50 mg Q6H PRN PO PAIN LEVEL 4-7 Last administered on 07/22/18 00:20; Admin Dose 50 MG; Start 07/19/18 at 19:30 Miscellaneous Information (Pending [facility] Order For Wound Care) This patient pedro... PRN PRN XX WOUND CARE; Start 07/20/18 at 01:30 Insulin Aspart (Novolog Insulin Pen) NOVOLOG *MODERATE* ALGORI... Q4 SC Last administered on 07/25/18 14:19; Admin Dose 6 UNIT; Start 07/20/18 at 17:00 Insulin Glargine (Lantus) 10 units DAILY@2000 SC Last administered on 07/24/18at 22:32; Admin Dose 10 UNITS; Start 07/22/18 at 20:00 Insulin Aspart (Novolog Insulin Pen) 10 unit BID SC Last administered on 07/25/18at 08:02; Admin Dose 10 UNIT; Start 07/22/18 at 14:00 Lorazepam (Ativan) 0.5 mg Q6 PRN IV AGITATION/ANXIETY; Start 07/22/18 at 17:00 Lansoprazole (Prevacid) 30 mg DAILY@06 GTB Last administered on 07/25/18at 05:36; Admin Dose 30 MG; Start 07/25/18 at 06:00 DORIAN ACOSTA MD Jul 25, 2018 15:05
[2018-07-25] MEDS: ATORVASTATIN 20 MG TAB PO SCH (21:50)
[2018-07-25] MEDS: INSULIN GLARGINE [LANTus] (100 UNITS/ML) SYG SC SCH (22:02)
[2018-07-25] MEDS: morphine 2 MG INJ IV PRN (23:10)
[2018-07-26] VITALS (23 sets, daily range): BP systolic 93–119; BP diastolic 53–62; PULSE 60–65; RESP 13–20
[2018-07-26] MEDS: INSULIN ASPART [NOVOLOG] 3 ML PEN SC SCH ×6 (02:29→21:05)
[2018-07-26] MEDS: METOPROLOL 50 MG TAB PO SCH ×3 (05:56→21:45)
[2018-07-26] MEDS: LANSOPRAZOLE 30 MG CAP GTB SCH (05:56)
[2018-07-26] MEDS: GABAPENTIN 400 MG CAP PO SCH ×3 (05:57→21:45)
[2018-07-26] MEDS: LORAZEPAM 2 MG INJ IV PRN ×2 (06:10→14:26)
[2018-07-26] MEDS ORDERED: predniSONE 20 MG TAB PO SCH ×2 (09:00)
[2018-07-26] MEDS: DULOXETINE 30 MG CAP DR PO SCH (09:15)
[2018-07-26] MEDS: SENNA TAB PO SCH ×2 (09:17→20:36)
[2018-07-26] MEDS: ISOSORBIDE DINITRATE 10 MG TAB PO SCH ×3 (09:18→20:37)
[2018-07-26] MEDS: ASCORBIC ACID 500 MG TAB PO SCH (09:18)
[2018-07-26] MEDS: MULTIVITAMINS THERAPEUTIC TAB PO SCH (09:18)
[2018-07-26] MEDS: FERROUS SULFATE (EC) 325 MG TAB PO SCH (09:19)
[2018-07-26] MEDS: INSULIN GLARGINE [LANTus] (100 UNITS/ML) SYG SC SCH ×2 (09:28→21:05)
--- NOTE | 2018-07-26 09:55 | CONS ---
Consult Date/Type/Reason Admit Date/Time Jul 19, 2018 at 18:40 Initial Consult Date Requesting Provider: LES TRENT Date/Time of Note DATE: 07/26/18 TIME: 09:53 Subjective NO acute events - VS stable - no active bleeding noted. ROS: No fever, no chills, no nausea, no vomiting, no diarrhea/constipation No recent weight changes No chest pain, no PND, no orthopnea - chronic SOB No dizziness, blurred vision No thirst, no heat or cold intolerance Objective Vitals Vital Signs Date Temp Pulse Resp B/P (MAP) Pulse Ox O2 O2 Flow FiO2 Time Delivery Rate 07/26/18 85 16 99 30 09:25 07/26/18 97.4 100/53 Trach 08:09 (69) Collar Intake and Output 07/25/18 07/25/18 07/26/18 1515:00 23:00 07:00 IntakeIntake Total 100 ml 1050 ml BalanceBalance 100 ml 1050 ml Exam General: WN/WD/NAD, AOx comfortable HEENT: Unicetric/atraumatic/EOMI (does not follow commands) NECK: trach Lymph: no lymphadenopathy HEART: regular with no S3, II/ systolic murmur at apex, pacer LUNGS: Coarse sounds ABD: soft, NT, ND, +BS : Intact Neuro: non focal SKIN: chronic changes EXT: amputated Results/Medications Result Diagram: 07/26/18 0607/26/18602 Results 24 hrs Laboratory Tests Test 07/25/18 14:15 07/25/18 17:44 07/25/18 21:49 07/26/18 00:58 Bedside Glucose 253 H 257 H 290 H 256 H Test 07/26/18 05:55 07/26/18 06:03 07/26/18 09:16 Bedside Glucose 262 H 217 White Blood Count 7.1 Red Blood Count 3.03 L Hemoglobin 8.3 L Hematocrit 26.4 L Mean Corpuscular 87.1 Volume Mean Corpuscular 27.4 L Hemoglobin Mean Corpuscular 31.4 L Hemoglobin Concent Red Cell 17.2 H Distribution Width Platelet Count 36 L Mean Platelet Volume 13.0 H Immature 1.600 H Granulocytes % Neutrophils % 80.9 H Lymphocytes % 12.6 L Monocytes % 4.5 Eosinophils % 0.3 Basophils % 0.1 Nucleated Red Blood 3.2 H Cells % Immature 0.110 H Granulocytes # Neutrophils # 5.7 Lymphocytes # 0.9 Monocytes # 0.3 Eosinophils # 0.0 Basophils # 0.0 Nucleated Red Blood 0.2 H Cells # Sodium Level 136 Potassium Level 4.1 Chloride Level 95 L Carbon Dioxide Level 33 H Anion Gap 8 Blood Urea Nitrogen 100 H Creatinine 1.01 Est Glomerular > 60 Filtrat Rate mL/min Glucose Level 222 H Calcium Level 8.5 Home Meds Reported Medications Tramadol HCl (Tramadol HCl) 50 Mg Tablet, 50 MG PO Q6H PRN for PAIN LEVEL 7-10, #120 TAB 06/23/18 Hydralazine Hcl* (Hydralazine Hcl*) 50 Mg Tab, 50 MG PO Q8 for hypertension, #90 TAB 06/23/18 Gabapentin* (Neurontin*) 400 Mg Capsule, 400 MG PO Q8, #90 CAP 06/23/18 Insulin Isophan/Regular (Humulin 70/30) 100 Units/Ml Susp, 18 UNIT SC Q8, EA 06/23/18 Omeprazole* (Omeprazole*) 40 Mg Capsule.dr, 40 MG PO DAILY, #30 CAP 06/23/18 Metoprolol Tartrate* (Lopressor*) 50 Mg Tab, 50 MG PO Q8, #60 TAB 06/23/18 Atorvastatin Calcium* (Atorvastatin Calcium*) 20 Mg Tablet, 20 MG PO QHS, #30 TAB 06/23/18 Ondansetron Hcl* (Ondansetron Hcl*) 4 Mg Tablet, 4 MG PO Q4H PRN for NAUSEA AND OR VOMITING, TAB 11/11/17 Budesonide-Formoterol Fumarate* (Symbicort*) 160-4.5 Hfa.aer.ad, 1 PUFF INHALATION BID, #1 EACH 11/11/17 Sennosides* (Senna Lax*) 8.6 Mg Tablet, 1 TAB PO BID, TAB 11/11/17 Multivitamins* (Theragran*) 1 Tab Tab, 1 TAB PO DAILY, TAB 11/11/17 Isosorbide Dinitrate* (Isosorbide Dinitrate*) 10 Mg Tablet, 10 MG PO TID, TAB 11/11/17 Ascorbic Acid* (Vitamin C*) 500 Mg Capsule.sa, 500 MG PO DAILY, CAP 11/11/17 Pantoprazole* (Protonix*) 40 Mg Tablet.dr, 40 MG PO AC BREAKFAST, TAB 08/07/17 Apixaban* (Eliquis*) 5 Mg Tablet, 5 MG PO BID, TAB 08/07/17 Nitroglycerin* (Nitrostat*) 0.4 Mg Tab.subl, 0.4 MG SL Q5MIN PRN for CHEST PAIN, BOTTLE 05/19/17 Duloxetine Hcl* (Cymbalta*) 30 Mg Capsule.dr, 30 MG PO DAILY, CAP 05/19/17 Acetaminophen* (Acetaminophen*) 650 Mg Tablet, 650 MG PO Q6H PRN for MILD TO MODERATE PAIN, #30 TAB 03/18/17 Alprazolam* (Alprazolam*) 0.25 Mg Tablet, 0.25 MG PO TID PRN for ANXIETY, TAB 03/18/17 Ferrous Sulfate* (Ferrous Sulfate*) 325 Mg Tabec, 325 MG PO DAILY, TAB 03/18/17 Medications Current Medications IV Flush (NS 3 ml) 3 ml PER PROTOCOL IV ; Start 07/19/18 at 19:30 Ondansetron HCl (Zofran Inj) 4 mg Q6H PRN IV NAUSEA/VOMITING; Start 07/19/18 at 19:30 Acetaminophen (Tylenol Tab) 650 mg Q6H PRN PO .PAIN 1-3 OR TEMP Last administered on 07/20/18at 10:01; Admin Dose 650 MG; Start 07/19/18 at 19:30 Morphine Sulfate (morphine) 2 mg Q4H PRN IV .PAIN 8-10 Last administered on 07/25/18at 23:10; Admin Dose 2 MG; Start 07/19/18 at 19:30 Acetaminophen (Tylenol Tab) 650 mg Q6H PRN PO MILD TO MODERATE PAIN; Start 07/19/18 at 19:30 Ascorbic Acid (Vitamin C) 500 mg DAILY PO Last administered on 07/26/18at 09:18; Admin Dose 500 MG; Start 07/20/18 at 09:00 Atorvastatin Calcium (Lipitor) 20 mg QHS PO Last administered on 07/25/18at 21:50; Admin Dose 20 MG; Start 07/19/18 at 21:00 Duloxetine HCl (Cymbalta) 30 mg DAILY PO Last administered on 07/26/18at 09:15; Admin Dose 30 MG; Start 07/20/18 at 09:00 Ferrous Sulfate (Ferrous Sulfate (Ec)) 325 mg DAILY PO Last administered on 07/26/18 09:19; Admin Dose 325 MG; Start 07/20/18 at 09:00; Stop 08/19/18 at 08:59 Gabapentin (Neurontin) 400 mg Q8 PO Last administered on 07/26/18 05:57; Admin Dose 400 MG; Start 07/19/18 at 22:00 Hydralazine HCl (Apresoline) 50 mg Q8 PO Last administered on 07/26/18 05:56; Admin Dose 50 MG; Start 07/19/18 at 22:00 Isosorbide Dinitrate (Isordil) 10 mg TID PO Last administered on 07/26/18 09:18; Admin Dose 10 MG; Start 07/19/18 at 21:00 Metoprolol Tartrate (Lopressor) 50 mg Q8 PO Last administered on 07/26/18 05:56; Admin Dose 50 MG; Start 07/19/18 at 22:00 Multivitamins Therapeutic (Theragran) 1 tab DAILY PO Last administered on 07/26/18 09:18; Admin Dose 1 TAB; Start 07/20/18 at 09:00 Nitroglycerin (Nitroglycerin (Sl Tab) 0.4 Mg) 1 tab [id number] PRN SL CHEST PAIN; Start 07/19/18 at 19:30 Ondansetron HCl (Zofran Tab) 4 mg Q4H PRN PO NAUSEA AND/OR VOMITING; Start 07/19/18 at 19:30 Senna (Senokot) 1 tab BID PO Last administered on 07/26/18 09:17; Admin Dose 1 TAB; Start 07/19/18 at 21:00 Tramadol HCl (Ultram) 50 mg Q6H PRN PO PAIN LEVEL 4-7 Last administered on 07/22/18 00:20; Admin Dose 50 MG; Start 07/19/18 at 19:30 Miscellaneous Information (Pending [facility] Order For Wound Care) This patient pedro... PRN PRN XX WOUND CARE; Start 07/20/18 at 01:30 Insulin Aspart (Novolog Insulin Pen) NOVOLOG *MODERATE* ALGORI... Q4 SC Last administered on 07/26/18 09:28; Admin Dose 4 UNIT; Start 07/20/18 at 17:00 Lorazepam (Ativan) 0.5 mg Q6 PRN IV AGITATION/ANXIETY Last administered on 07/26/18 06:10; Admin Dose 0.5 MG; Start 07/22/18 at 17:00 Lansoprazole (Prevacid) 30 mg DAILY@06 GTB Last administered on 07/26/18 05:56; Admin Dose 30 MG; Start 07/25/18 at 06:00 Insulin Glargine (Lantus) 12 units BID SC Last administered on 07/26/18 09:28; Admin Dose 12 UNITS; Start 07/25/18 at 21:00 Prednisone (Prednisone) 80 mg DAILY PO Last administered on 07/26/18 09:18; Admin Dose 80 MG; Start 07/26/18 at 09:00 Assessment/Plan Hospital Course (Demo Recall) 1. Permanent pacemaker with proper function at this time, primarily AV pacing. No signs of dysfunction at this time - with good fxn now. Paced at times. 2. History of paroxysmal atrial fibrillation and atrial flutter, had been off anticoagulation due to severe thrombocytopenia, has been started on anticoagulation, which was stopped at this time due to severe thrombocytopenia. Off anti-coag now. Plts higher. 3. Hypertension - well controlled. Contrlled. 4. Dyslipidemia. 5. History of aortic valve replacement, bioprosthesis in 06/2017- stable by exam. 6. History of coronary artery disease, status post coronary artery bypass graft surgery in 06/2017 using AHUJA to LAD. On meds. 7. 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 8. Diabetes mellitus. 9. Dysphagia, status post G-tube. On feeds - at goal. 10. Chronic respiratory failure, status post tracheostomy- con;t resp Rx. REGINA TOMAS MD Jul 26, 2018 09:55
--- NOTE | 2018-07-26 14:23 | CONS ---
Assessment/Plan Assessment/Plan Problems: (1) Diabetes mellitus type 2 with complications Status: Chronic Comment: Blood sugar still bit up but I am going to adjust his insulins to bring this under better control. Please note with his history of pancreatitis DPP 4 inhibitors and GLP-1 drugs are not appropriate Qualifiers: Diabetes mellitus custodial insulin use: with watermelon inspector use Qualified Codes: E11.8 - Type 2 diabetes mellitus with unspecified complications; Z79.4 - watermelon inspector (current) use of insulin Consultation Date/Type/Reason Admit Date/Time Jul 19, 2018 at 18:40 Initial Consult Date 07/24/18 Type of Consult Endocrine Reason for Consultation Diabetes mellitus type 2 with multiple complications; coronary artery disease; pacemaker; severe depression Requesting Provider: LES TRENT Date/Time of Note DATE: 07/26/18 TIME: 14:22 24 HR Interval Summary Free Text/Dictation Patient is awake and alert Constitutional: no complaints Detailed Summary Endocrine: no complaints Exam/Review of Systems Exam Vitals Vital Signs Date Temp Pulse Resp B/P (MAP) Pulse Ox O2 O2 Flow FiO2 Time Delivery Rate 07/26/18 80 17 99 30 12:55 07/26/18 97.6 119/62 Trach 11:52 (81) Collar Intake and Output 07/25/18 07/25/18 07/26/18 1414:59 22:59 06:59 IntakeIntake Total 100 ml 1050 ml BalanceBalance 100 ml 1050 ml Constitutional: alert Respiratory: clear to auscultation, normal air movement Cardiovascular: nl pulses Gastrointestinal: soft, nl liver, spleen, non-tender Results Result Diagram: 07/26/18 0603 07/26/18 0603 Results 24hrs Laboratory Tests Test 07/25/18 17:44 07/25/18 21:49 07/26/18 00:58 07/26/18 05:55 Bedside Glucose 257 H 290 H 256 H 262 H Test 07/26/18 06:03 07/26/18 09:16 07/26/18 13:32 White Blood Count 7.1 Red Blood Count 3.03 L Hemoglobin 8.3 L Hematocrit 26.4 L Mean Corpuscular 87.1 Volume Mean Corpuscular 27.4 L Hemoglobin Mean Corpuscular 31.4 L Hemoglobin Concent Red Cell 17.2 H Distribution Width Platelet Count 36 L Mean Platelet Volume 13.0 H Immature 1.600 H Granulocytes % Neutrophils % 80.9 H Lymphocytes % 12.6 L Monocytes % 4.5 Eosinophils % 0.3 Basophils % 0.1 Nucleated Red Blood 3.2 H Cells % Immature 0.110 H Granulocytes # Neutrophils # 5.7 Lymphocytes # 0.9 Monocytes # 0.3 Eosinophils # 0.0 Basophils # 0.0 Nucleated Red Blood 0.2 H Cells # Sodium Level 136 Potassium Level 4.1 Chloride Level 95 L Carbon Dioxide Level 33 H Anion Gap 8 Blood Urea Nitrogen 100 H Creatinine 1.01 Est Glomerular > 60 Filtrat Rate mL/min Glucose Level 222 H Calcium Level 8.5 Bedside Glucose 217 226 H Medications Medication Current Medications IV Flush (NS 3 ml) 3 ml PER PROTOCOL IV ; Start 07/19/18 at 19:30 Ondansetron HCl (Zofran Inj) 4 mg Q6H PRN IV NAUSEA/VOMITING; Start 07/19/18 at 19:30 Acetaminophen (Tylenol Tab) 650 mg Q6H PRN PO .PAIN 1-3 OR TEMP Last administered on 07/20/18at 10:01; Admin Dose 650 MG; Start 07/19/18 at 19:30 Morphine Sulfate (morphine) 2 mg Q4H PRN IV .PAIN 8-10 Last administered on 07/25/18at 23:10; Admin Dose 2 MG; Start 07/19/18 at 19:30 Acetaminophen (Tylenol Tab) 650 mg Q6H PRN PO MILD TO MODERATE PAIN; Start 07/19/18 at 19:30 Ascorbic Acid (Vitamin C) 500 mg DAILY PO Last administered on 07/26/18 09:18; Admin Dose 500 MG; Start 07/20/18 at 09:00 Atorvastatin Calcium (Lipitor) 20 mg QHS PO Last administered on 07/25/18 21:50; Admin Dose 20 MG; Start 07/19/18 at 21:00 Duloxetine HCl (Cymbalta) 30 mg DAILY PO Last administered on 07/26/18 09:15; Admin Dose 30 MG; Start 07/20/18 at 09:00 Ferrous Sulfate (Ferrous Sulfate (Ec)) 325 mg DAILY PO Last administered on 07/26/18 09:19; Admin Dose 325 MG; Start 07/20/18 at 09:00; Stop 08/19/18 at 08:59 Gabapentin (Neurontin) 400 mg Q8 PO Last administered on 07/26/18 13:34; Admin Dose 400 MG; Start 07/19/18 at 22:00 Hydralazine HCl (Apresoline) 50 mg Q8 PO Last administered on 07/26/18 13:35; Admin Dose 50 MG; Start 07/19/18 at 22:00 Isosorbide Dinitrate (Isordil) 10 mg TID PO Last administered on 07/26/18 13:35; Admin Dose 10 MG; Start 07/19/18 at 21:00 Metoprolol Tartrate (Lopressor) 50 mg Q8 PO Last administered on 07/26/18 13: 34; Admin Dose 50 MG; Start 07/19/18 at 22:00 Multivitamins Therapeutic (Theragran) 1 tab DAILY PO Last administered on 07/26/18 09:18; Admin Dose 1 TAB; Start 07/20/18 at 09:00 Nitroglycerin (Nitroglycerin (Sl Tab) 0.4 Mg) 1 tab [id number] PRN SL CHEST PAIN; Start 07/19/18 at 19:30 Ondansetron HCl (Zofran Tab) 4 mg Q4H PRN PO NAUSEA AND/OR VOMITING; Start 07/19/18 at 19:30 Senna (Senokot) 1 tab BID PO Last administered on 07/26/18 09:17; Admin Dose 1 TAB; Start 07/19/18 at 21:00 Tramadol HCl (Ultram) 50 mg Q6H PRN PO PAIN LEVEL 4-7 Last administered on 07/22/18 00:20; Admin Dose 50 MG; Start 07/19/18 at 19:30 Miscellaneous Information (Pending [facility] Order For Wound Care) This patient pedro... PRN PRN XX WOUND CARE; Start 07/20/18 at 01:30 Insulin Aspart (Novolog Insulin Pen) NOVOLOG *MODERATE* ALGORI... Q4 SC Last administered on 07/26/18 13:42; Admin Dose 6 UNIT; Start 07/20/18 at 17:00 Lorazepam (Ativan) 0.5 mg Q6 PRN IV AGITATION/ANXIETY Last administered on 07/26/18 06:10; Admin Dose 0.5 MG; Start 07/22/18 at 17:00 Lansoprazole (Prevacid) 30 mg DAILY@06 GTB Last administered on 07/26/18at 05:56; Admin Dose 30 MG; Start 07/25/18 at 06:00 Prednisone (Prednisone) 80 mg DAILY PO Last administered on 07/26/18at 09:18; Admin Dose 80 MG; Start 07/26/18 at 09:00 Insulin Glargine (Lantus) 16 units BID SC ; Start 07/26/18 at 21:00 Insulin Glargine (Lantus) 4 units ONCE ONCE SC ; Start 07/26/18 at 14:30; Stop 07/26/18 at 14:31 DORIAN ACOSTA MD Jul 26, 2018 14:23
[2018-07-26] MEDS ORDERED: INSULIN GLARGINE [LANTus] (100 UNITS/ML) SYG SC ONE (14:30)
--- NOTE | 2018-07-26 15:50 | PN ---
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 Pt continued on Prednisone. - per hematology consultation. -VDRF with tracheostomy on 02/19/18. - per pulmonary - Azotemia - per nephro consult - monitor renal functions -Hx of Atrial fibrillation and atrial flutter. - unable to tolerate anticoagulation due to severe thrombocytopenia. 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 BS elevated - Continue Lantus and NovoLog. - per Endo consult -Anemia, monitor H&H. - Dysphagia -SP PEG placement on 02/19/18. -Colostomy -Bilateral BKA -Major depressive disorder -Hx of Stage III sacral decubitus ulcer Further recommendations based on clinical course. Plan of care discussed with Dr. Villatoro. Result Diagram: 07/26/18 0603 07/26/18 0603 Results 24hrs Laboratory Tests Test 07/25/18 17:44 07/25/18 21:49 07/26/18 00:58 07/26/18 05:55 Bedside Glucose 257 H 290 H 256 H 262 H Test 07/26/18 06:03 07/26/18 09:16 07/26/18 13:32 White Blood Count 7.1 Red Blood Count 3.03 L Hemoglobin 8.3 L Hematocrit 26.4 L Mean Corpuscular 87.1 Volume Mean Corpuscular 27.4 L Hemoglobin Mean Corpuscular 31.4 L Hemoglobin Concent Red Cell 17.2 H Distribution Width Platelet Count 36 L Mean Platelet Volume 13.0 H Immature 1.600 H Granulocytes % Neutrophils % 80.9 H Lymphocytes % 12.6 L Monocytes % 4.5 Eosinophils % 0.3 Basophils % 0.1 Nucleated Red Blood 3.2 H Cells % Immature 0.110 H Granulocytes # Neutrophils # 5.7 Lymphocytes # 0.9 Monocytes # 0.3 Eosinophils # 0.0 Basophils # 0.0 Nucleated Red Blood 0.2 H Cells # Sodium Level 136 Potassium Level 4.1 Chloride Level 95 L Carbon Dioxide Level 33 H Anion Gap 8 Blood Urea Nitrogen 100 H Creatinine 1.01 Est Glomerular > 60 Filtrat Rate mL/min Glucose Level 222 H Calcium Level 8.5 Bedside Glucose 217 226 H Exam/Review of Systems Exam Vitals Vital Signs Date Temp Pulse Resp B/P (MAP) Pulse Ox O2 O2 Flow FiO2 Time Delivery Rate 07/26/18 80 17 99 30 12:55 07/26/18 97.6 119/62 Trach 11:52 (81) Collar Intake and Output 07/25/18 07/25/18 07/26/18 1515:00 23:00 07:00 IntakeIntake Total 100 ml 1050 ml BalanceBalance 100 ml 1050 ml Constitutional: non-verbal, frail Psych: nl mood/affect Eyes: nl lids, nl sclera ENMT: nl external ears & nose Neck: non-tender, other (trach intact) Respiratory: clear to auscultation Cardiovascular: nl pulses, other (s1s2) Gastrointestinal: soft, non-tender, other (GT /colostomy intact) Musculoskeletal: other (george BKA) Extremities: other (George BKA) Neurological: confused, lethargic Results Results 24hrs Laboratory Tests Test 07/25/18 17:44 07/25/18 21:49 07/26/18 00:58 07/26/18 05:55 Bedside Glucose 257 H 290 H 256 H 262 H Test 07/26/18 06:03 07/26/18 09:16 07/26/18 13:32 White Blood Count 7.1 Red Blood Count 3.03 L Hemoglobin 8.3 L Hematocrit 26.4 L Mean Corpuscular 87.1 Volume Mean Corpuscular 27.4 L Hemoglobin Mean Corpuscular 31.4 L Hemoglobin Concent Red Cell 17.2 H Distribution Width Platelet Count 36 L Mean Platelet Volume 13.0 H Immature 1.600 H Granulocytes % Neutrophils % 80.9 H Lymphocytes % 12.6 L Monocytes % 4.5 Eosinophils % 0.3 Basophils % 0.1 Nucleated Red Blood 3.2 H Cells % Immature 0.110 H Granulocytes # Neutrophils # 5.7 Lymphocytes # 0.9 Monocytes # 0.3 Eosinophils # 0.0 Basophils # 0.0 Nucleated Red Blood 0.2 H Cells # Sodium Level 136 Potassium Level 4.1 Chloride Level 95 L Carbon Dioxide Level 33 H Anion Gap 8 Blood Urea Nitrogen 100 H Creatinine 1.01 Est Glomerular > 60 Filtrat Rate mL/min Glucose Level 222 H Calcium Level 8.5 Bedside Glucose 217 226 H Medications Medication Current Medications IV Flush (NS 3 ml) 3 ml PER PROTOCOL IV ; Start 07/19/18 at 19:30 Ondansetron HCl (Zofran Inj) 4 mg Q6H PRN IV NAUSEA/VOMITING; Start 07/19/18 at 19:30 Acetaminophen (Tylenol Tab) 650 mg Q6H PRN PO .PAIN 1-3 OR TEMP Last administered on 07/20/18 10:01; Admin Dose 650 MG; Start 07/19/18 at 19:30 Morphine Sulfate (morphine) 2 mg Q4H PRN IV .PAIN 8-10 Last administered on 07/25/18at 23:10; Admin Dose 2 MG; Start 07/19/18 at 19:30 Acetaminophen (Tylenol Tab) 650 mg Q6H PRN PO MILD TO MODERATE PAIN; Start 07/19/18 at 19:30 Ascorbic Acid (Vitamin C) 500 mg DAILY PO Last administered on 07/26/18 09:18; Admin Dose 500 MG; Start 07/20/18 at 09:00 Atorvastatin Calcium (Lipitor) 20 mg QHS PO Last administered on 07/25/18at 21:50; Admin Dose 20 MG; Start 07/19/18 at 21:00 Duloxetine HCl (Cymbalta) 30 mg DAILY PO Last administered on 07/26/18 09:15; Admin Dose 30 MG; Start 07/20/18 at 09:00 Ferrous Sulfate (Ferrous Sulfate (Ec)) 325 mg DAILY PO Last administered on 07/26/18 09:19; Admin Dose 325 MG; Start 07/20/18 at 09:00; Stop 08/19/18 at 08:59 Gabapentin (Neurontin) 400 mg Q8 PO Last administered on 07/26/18at 13:34; Admin Dose 400 MG; Start 07/19/18 at 22:00 Hydralazine HCl (Apresoline) 50 mg Q8 PO Last administered on 07/26/18 13:35; Admin Dose 50 MG; Start 07/19/18 at 22:00 Isosorbide Dinitrate (Isordil) 10 mg TID PO Last administered on 07/26/18 13:35; Admin Dose 10 MG; Start 07/19/18 at 21:00 Metoprolol Tartrate (Lopressor) 50 mg Q8 PO Last administered on 07/26/18 13:34; Admin Dose 50 MG; Start 07/19/18 at 22:00 Multivitamins Therapeutic (Theragran) 1 tab DAILY PO Last administered on 07/26/18 09:18; Admin Dose 1 TAB; Start 07/20/18 at 09:00 Nitroglycerin (Nitroglycerin (Sl Tab) 0.4 Mg) 1 tab [id number] PRN SL CHEST PAIN; Start 07/19/18 at 19:30 Ondansetron HCl (Zofran Tab) 4 mg Q4H PRN PO NAUSEA AND/OR VOMITING; Start 07/19/18 at 19:30 Senna (Senokot) 1 tab BID PO Last administered on 07/26/18 09:17; Admin Dose 1 TAB; Start 07/19/18 at 21:00 Tramadol HCl (Ultram) 50 mg Q6H PRN PO PAIN LEVEL 4-7 Last administered on 07/22/18 00:20; Admin Dose 50 MG; Start 07/19/18 at 19:30 Miscellaneous Information (Pending [facility] Order For Wound Care) This patient pedro... PRN PRN XX WOUND CARE; Start 07/20/18 at 01:30 Insulin Aspart (Novolog Insulin Pen) NOVOLOG *MODERATE* ALGORI... Q4 SC Last administered on 07/26/18 13:42; Admin Dose 6 UNIT; Start 07/20/18 at 17:00 Lorazepam (Ativan) 0.5 mg Q6 PRN IV AGITATION/ANXIETY Last administered on 07/26/18 14:26; Admin Dose 0.5 MG; Start 07/22/18 at 17:00 Lansoprazole (Prevacid) 30 mg DAILY@06 GTB Last administered on 07/26/18 05:56; Admin Dose 30 MG; Start 07/25/18 at 06:00 Prednisone (Prednisone) 80 mg DAILY PO Last administered on 07/26/18at 09:18; Admin Dose 80 MG; Start 07/26/18 at 09:00 Insulin Glargine (Lantus) 16 units BID SC ; Start 07/26/18 at 21:00 Insulin Human NPH (Humulin N) 10 unit DAILY@0900 SC ; Start 07/27/18 at 09:00 LES TRENT Jul 26, 2018 15:50
--- NOTE | 2018-07-26 16:35 | CONS ---
Consult Date/Type/Reason Admit Date/Time Jul 19, 2018 at 18:40 Initial Consult Date 07/24/18 Requesting Provider: LES TRENT Date/Time of Note DATE: 07/26/18 TIME: 16:33 Subjective No events overnight. Objective Vitals Vital Signs Date Temp Pulse Resp B/P (MAP) Pulse Ox O2 O2 Flow FiO2 Time Delivery Rate 07/26/18 97.6 60 14 93/53 (66) 96 Trach 15:48 Collar 07/26/18 30 15:45 Intake and Output 07/25/18 07/25/18 07/26/18 1515:00 23:00 07:00 IntakeIntake Total 100 ml 1050 ml BalanceBalance 100 ml 1050 ml Exam NECK: Supple. Trach site is clean and intact. CARDIAC: S1, S2. No added sounds or murmurs. CHEST: Diminished air entry bilaterally. ABDOMEN: Soft, nontender. No guarding or rebound. EXTREMITIES: No cyanosis, clubbing or edema. NEUROLOGIC: Generalized weakness. Results/Medications Result Diagram: 07/26/18 0607/26/18 0603 Results 24 hrs Laboratory Tests Test 07/25/18 17:44 07/25/18 21:49 07/26/18 00:58 07/26/18 05:55 Bedside Glucose 257 H 290 H 256 H 262 H Test 07/26/18 06:03 07/26/18 09:16 07/26/18 13:32 07/26/18 16:19 White Blood Count 7.1 Red Blood Count 3.03 L Hemoglobin 8.3 L Hematocrit 26.4 L Mean Corpuscular 87.1 Volume Mean Corpuscular 27.4 L Hemoglobin Mean Corpuscular 31.4 L Hemoglobin Concent Red Cell 17.2 H Distribution Width Platelet Count 36 L Mean Platelet Volume 13.0 H Immature 1.600 H Granulocytes % Neutrophils % 80.9 H Lymphocytes % 12.6 L Monocytes % 4.5 Eosinophils % 0.3 Basophils % 0.1 Nucleated Red Blood 3.2 H Cells % Immature 0.110 H Granulocytes # Neutrophils # 5.7 Lymphocytes # 0.9 Monocytes # 0.3 Eosinophils # 0.0 Basophils # 0.0 Nucleated Red Blood 0.2 H Cells # Sodium Level 136 Potassium Level 4.1 Chloride Level 95 L Carbon Dioxide Level 33 H Anion Gap 8 Blood Urea Nitrogen 100 H Creatinine 1.01 Est Glomerular > 60 Filtrat Rate mL/min Glucose Level 222 H Calcium Level 8.5 Bedside Glucose 217 226 H 237 H Home Meds Reported Medications Tramadol HCl (Tramadol HCl) 50 Mg Tablet, 50 MG PO Q6H PRN for PAIN LEVEL 7-10, #120 TAB 06/23/18 Hydralazine Hcl* (Hydralazine Hcl*) 50 Mg Tab, 50 MG PO Q8 for hypertension, #90 TAB 06/23/18 Gabapentin* (Neurontin*) 400 Mg Capsule, 400 MG PO Q8, #90 CAP 06/23/18 Insulin Isophan/Regular (Humulin 70/30) 100 Units/Ml Susp, 18 UNIT SC Q8, EA 06/23/18 Omeprazole* (Omeprazole*) 40 Mg Capsule.dr, 40 MG PO DAILY, #30 CAP 06/23/18 Metoprolol Tartrate* (Lopressor*) 50 Mg Tab, 50 MG PO Q8, #60 TAB 06/23/18 Atorvastatin Calcium* (Atorvastatin Calcium*) 20 Mg Tablet, 20 MG PO QHS, #30 TAB 06/23/18 Ondansetron Hcl* (Ondansetron Hcl*) 4 Mg Tablet, 4 MG PO Q4H PRN for NAUSEA AND OR VOMITING, TAB 11/11/17 Budesonide-Formoterol Fumarate* (Symbicort*) 160-4.5 Hfa.aer.ad, 1 PUFF INHALATION BID, #1 EACH 11/11/17 Sennosides* (Senna Lax*) 8.6 Mg Tablet, 1 TAB PO BID, TAB 11/11/17 Multivitamins* (Theragran*) 1 Tab Tab, 1 TAB PO DAILY, TAB 11/11/17 Isosorbide Dinitrate* (Isosorbide Dinitrate*) 10 Mg Tablet, 10 MG PO TID, TAB 11/11/17 Ascorbic Acid* (Vitamin C*) 500 Mg Capsule.sa, 500 MG PO DAILY, CAP 11/11/17 Pantoprazole* (Protonix*) 40 Mg Tablet.dr, 40 MG PO AC BREAKFAST, TAB 08/07/17 Apixaban* (Eliquis*) 5 Mg Tablet, 5 MG PO BID, TAB 08/07/17 Nitroglycerin* (Nitrostat*) 0.4 Mg Tab.subl, 0.4 MG SL Q5MIN PRN for CHEST PAIN, BOTTLE 05/19/17 Duloxetine Hcl* (Cymbalta*) 30 Mg Capsule.dr, 30 MG PO DAILY, CAP 05/19/17 Acetaminophen* (Acetaminophen*) 650 Mg Tablet, 650 MG PO Q6H PRN for MILD TO MODERATE PAIN, #30 TAB 03/18/17 Alprazolam* (Alprazolam*) 0.25 Mg Tablet, 0.25 MG PO TID PRN for ANXIETY, TAB 03/18/17 Ferrous Sulfate* (Ferrous Sulfate*) 325 Mg Tabec, 325 MG PO DAILY, TAB 03/18/17 Medications Current Medications IV Flush (NS 3 ml) 3 ml PER PROTOCOL IV ; Start 07/19/18 at 19:30 Ondansetron HCl (Zofran Inj) 4 mg Q6H PRN IV NAUSEA/VOMITING; Start 07/19/18 at 19:30 Acetaminophen (Tylenol Tab) 650 mg Q6H PRN PO .PAIN 1-3 OR TEMP Last administered on 07/20/18at 10:01; Admin Dose 650 MG; Start 07/19/18 at 19:30 Morphine Sulfate (morphine) 2 mg Q4H PRN IV .PAIN 8-10 Last administered on 07/25/18at 23:10; Admin Dose 2 MG; Start 07/19/18 at 19:30 Acetaminophen (Tylenol Tab) 650 mg Q6H PRN PO MILD TO MODERATE PAIN; Start 07/19/18 at 19:30 Ascorbic Acid (Vitamin C) 500 mg DAILY PO Last administered on 07/26/18 09:18; Admin Dose 500 MG; Start 07/20/18 at 09:00 Atorvastatin Calcium (Lipitor) 20 mg QHS PO Last administered on 07/25/18at 21:50; Admin Dose 20 MG; Start 07/19/18 at 21:00 Duloxetine HCl (Cymbalta) 30 mg DAILY PO Last administered on 07/26/18at 09:15; Admin Dose 30 MG; Start 07/20/18 at 09:00 Ferrous Sulfate (Ferrous Sulfate (Ec)) 325 mg DAILY PO Last administered on 07/26/18 09:19; Admin Dose 325 MG; Start 07/20/18 at 09:00; Stop 08/19/18 at 08:59 Gabapentin (Neurontin) 400 mg Q8 PO Last administered on 07/26/18 13:34; Admin Dose 400 MG; Start 07/19/18 at 22:00 Hydralazine HCl (Apresoline) 50 mg Q8 PO Last administered on 07/26/18 13:35; Admin Dose 50 MG; Start 07/19/18 at 22:00 Isosorbide Dinitrate (Isordil) 10 mg TID PO Last administered on 07/26/18 13:35; Admin Dose 10 MG; Start 07/19/18 at 21:00 Metoprolol Tartrate (Lopressor) 50 mg Q8 PO Last administered on 07/26/18 13:34; Admin Dose 50 MG; Start 07/19/18 at 22:00 Multivitamins Therapeutic (Theragran) 1 tab DAILY PO Last administered on 07/26/18 09:18; Admin Dose 1 TAB; Start 07/20/18 at 09:00 Nitroglycerin (Nitroglycerin (Sl Tab) 0.4 Mg) 1 tab [id number] PRN SL CHEST PAIN; Start 07/19/18 at 19:30 Ondansetron HCl (Zofran Tab) 4 mg Q4H PRN PO NAUSEA AND/OR VOMITING; Start 07/19/18 at 19:30 Senna (Senokot) 1 tab BID PO Last administered on 07/26/18 09:17; Admin Dose 1 TAB; Start 07/19/18 at 21:00 Tramadol HCl (Ultram) 50 mg Q6H PRN PO PAIN LEVEL 4-7 Last administered on 07/22/18 00:20; Admin Dose 50 MG; Start 07/19/18 at 19:30 Miscellaneous Information (Pending [facility]) This patient pedro... PRN PRN XX WOUND CARE; Start 07/20/18 at 01:30 Insulin Aspart (Novolog Insulin Pen) NOVOLOG *MODERATE* ALGORI... Q4 SC Last administered on 07/26/18 16:25; Admin Dose 6 UNIT; Start 07/20/18 at 17:00 Lorazepam (Ativan) 0.5 mg Q6 PRN IV AGITATION/ANXIETY Last administered on 07/26/18 14:26; Admin Dose 0.5 MG; Start 4/23/19 at 17:00 Lansoprazole (Prevacid) 30 mg DAILY@06 GTB Last administered on 07/26/18at 05:56; Admin Dose 30 MG; Start 07/25/18 at 06:00 Prednisone (Prednisone) 80 mg DAILY PO Last administered on 07/26/18at 09:18; Admin Dose 80 MG; Start 07/26/18 at 09:00 Insulin Glargine (Lantus) 16 units BID SC ; Start 07/26/18 at 21:00 Insulin Human NPH (Humulin N) 10 unit DAILY@0900 SC ; Start 07/27/18 at 09:00 Assessment/Plan Assessment/Plan (Daily) IMP: 1. Ventilator-dependent respiratory failure. 2. 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 3. Dysphagia with G-tube. 4. Anemia no active GI bleeding 5. s/p pacer PLAN: 1. Vent support 2. BDs/CPT 3. TF/Free H20 UTE GOODE MD Jul 26, 2018 16:35
--- NOTE | 2018-07-26 16:47 | CONS ---
Assessment/Plan Assessment/Plan Assessment/Plan (Daily) 68 yo admitted with tracheal bleeding found to have profoundly low plt count #ITP -plt improved to 36 without any bleeding or bruising. -Patient is on 80 mg prednisone daily and then will have a slow taper. He completed dexamethasone 40 mg x 4 days along with IVIG 40 grams x 2 days. -as evidenced by past response to steroids and bone marrow bx consistent with peripheral destruction -past labs reveal + TERESE, negative HIT ab -if patient does not respond will need to consider a course of Rituxan therapy, but he seems to be responding. #Headache CT head was done on 07/22 and was negative. Thank you to Dr. Villatoro for allowing us to follow this patient. Consultation Date/Type/Reason Admit Date/Time Jul 19, 2018 at 18:40 Initial Consult Date 07/24/18 Type of Consult hematology/oncology Requesting Provider: LES TRENT Date/Time of Note DATE: 07/26/18 TIME: 16:45 24 HR Interval Summary Free Text/Dictation Mr Erazo is a 68 yo male with multiple medical problems including coronary artery disease, respiratory failure with trach with history of ITP. During his last admission to [facility] pt was noted to respond well to steroids. He was transferred to [place] after regaining his counts. Bone marrow biopsy in September 2017 showing no obvious pathology but was suggestive of perhaps peripheral plt destruction. PT again has severe thrombocytopenia now with 3K platelets. He is also c/o headaches. Last admission also revealed: + TERESE + Hep C ab but negative pcr negative for Hep B h/o negative antiplt antibodies Constitutional: no complaints, improved Exam/Review of Systems Exam Vitals Vital Signs Date Temp Pulse Resp B/P (MAP) Pulse Ox O2 O2 Flow FiO2 Time Delivery Rate 07/26/18 97.6 60 14 93/53 (66) 96 Trach 15:48 Collar 07/26/18 30 15:45 Intake and Output 07/25/18 07/25/18 07/26/18 1515:00 23:00 07:00 IntakeIntake Total 100 ml 1050 ml BalanceBalance 100 ml 1050 ml Constitutional: alert, oriented, well developed Psych: no complaints, nl mood/affect Head: normocephalic, atraumatic Eyes: nl conjunctiva, EOMI, nl lids, nl sclera, PERRL ENMT: nl external ears & nose, nl lips & teeth, nl nasal mucosa & septum Neck: supple, non-tender Respiratory: clear to auscultation, normal air movement Cardiovascular: regular rate and rhythm, nl pulses Gastrointestinal: soft, nl liver, spleen, non-tender Musculoskeletal: nl extremities to inspection, nl gait and stance Extremities: normal pulses Neurological: INSPECTOR QUALITY ASSURANCE II-XII intact, nl mental status, nl speech, nl strength Skin: nl turgor; No rash or lesions Lymph: nl lymph nodes Results Result Diagram: 07/26/18 0603 07/26/18 0603 Results 24hrs Laboratory Tests Test 07/25/18 17:44 07/25/18 21:49 07/26/18 00:58 07/26/18 05:55 Bedside Glucose 257 H 290 H 256 H 262 H Test 07/26/18 06:03 07/26/18 09:16 07/26/18 13:32 07/26/18 16:19 White Blood Count 7.1 Red Blood Count 3.03 L Hemoglobin 8.3 L Hematocrit 26.4 L Mean Corpuscular 87.1 Volume Mean Corpuscular 27.4 L Hemoglobin Mean Corpuscular 31.4 L Hemoglobin Concent Red Cell 17.2 H Distribution Width Platelet Count 36 L Mean Platelet Volume 13.0 H Immature 1.600 H Granulocytes % Neutrophils % 80.9 H Lymphocytes % 12.6 L Monocytes % 4.5 Eosinophils % 0.3 Basophils % 0.1 Nucleated Red Blood 3.2 H Cells % Immature 0.110 H Granulocytes # Neutrophils # 5.7 Lymphocytes # 0.9 Monocytes # 0.3 Eosinophils # 0.0 Basophils # 0.0 Nucleated Red Blood 0.2 H Cells # Sodium Level 136 Potassium Level 4.1 Chloride Level 95 L Carbon Dioxide Level 33 H Anion Gap 8 Blood Urea Nitrogen 100 H Creatinine 1.01 Est Glomerular > 60 Filtrat Rate mL/min Glucose Level 222 H Calcium Level 8.5 Bedside Glucose 217 226 H 237 H Medications Medication Current Medications IV Flush (NS 3 ml) 3 ml PER PROTOCOL IV ; Start 07/19/18 at 19:30 Ondansetron HCl (Zofran Inj) 4 mg Q6H PRN IV NAUSEA/VOMITING; Start 07/19/18 at 19:30 Acetaminophen (Tylenol Tab) 650 mg Q6H PRN PO .PAIN 1-3 OR TEMP Last administered on 07/20/18 10:01; Admin Dose 650 MG; Start 07/19/18 at 19:30 Morphine Sulfate (morphine) 2 mg Q4H PRN IV .PAIN 8-10 Last administered on 07/25/18 23:10; Admin Dose 2 MG; Start 07/19/18 at 19:30 Acetaminophen (Tylenol Tab) 650 mg Q6H PRN PO MILD TO MODERATE PAIN; Start 07/19/18 at 19:30 Ascorbic Acid (Vitamin C) 500 mg DAILY PO Last administered on 07/26/18 09:18; Admin Dose 500 MG; Start 07/20/18 at 09:00 Atorvastatin Calcium (Lipitor) 20 mg QHS PO Last administered on 07/25/18 21:50; Admin Dose 20 MG; Start 07/19/18 at 21:00 Duloxetine HCl (Cymbalta) 30 mg DAILY PO Last administered on 07/26/18 09:15; Admin Dose 30 MG; Start 07/20/18 at 09:00 Ferrous Sulfate (Ferrous Sulfate (Ec)) 325 mg DAILY PO Last administered on 07/26/18 09:19; Admin Dose 325 MG; Start 07/20/18 at 09:00; Stop 08/19/18 at 08:59 Gabapentin (Neurontin) 400 mg Q8 PO Last administered on 07/26/18 13:34; Admin Dose 400 MG; Start 07/19/18 at 22:00 Hydralazine HCl (Apresoline) 50 mg Q8 PO Last administered on 07/26/18 13:35; Admin Dose 50 MG; Start 07/19/18 at 22:00 Isosorbide Dinitrate (Isordil) 10 mg TID PO Last administered on 07/26/18 13:35; Admin Dose 10 MG; Start 07/19/18 at 21:00 Metoprolol Tartrate (Lopressor) 50 mg Q8 PO Last administered on 07/26/18 13:34; Admin Dose 50 MG; Start 07/19/18 at 22:00 Multivitamins Therapeutic (Theragran) 1 tab DAILY PO Last administered on 07/26/18 09:18; Admin Dose 1 TAB; Start 07/20/18 at 09:00 Nitroglycerin (Nitroglycerin (Sl Tab) 0.4 Mg) 1 tab [id number] PRN SL CHEST PAIN; Start 07/19/18 at 19:30 Ondansetron HCl (Zofran Tab) 4 mg Q4H PRN PO NAUSEA AND/OR VOMITING; Start 07/19/18 at 19:30 Senna (Senokot) 1 tab BID PO Last administered on 07/26/18 09:17; Admin Dose 1 TAB; Start 07/19/18 at 21:00 Tramadol HCl (Ultram) 50 mg Q6H PRN PO PAIN LEVEL 4-7 Last administered on 07/22/18at 00:20; Admin Dose 50 MG; Start 07/19/18 at 19:30 Miscellaneous Information (Pending [facility] Order For Wound Care) This patient pedro... PRN PRN XX WOUND CARE; Start 07/20/18 at 01:30 Insulin Aspart (Novolog Insulin Pen) NOVOLOG *MODERATE* ALGORI... Q4 SC Last administered on 07/26/18 16:25; Admin Dose 6 UNIT; Start 07/20/18 at 17:00 Lorazepam (Ativan) 0.5 mg Q6 PRN IV AGITATION/ANXIETY Last administered on 07/26/18 14:26; Admin Dose 0.5 MG; Start 07/22/18 at 17:00 Lansoprazole (Prevacid) 30 mg DAILY@06 GTB Last administered on 07/26/18at 05:56; Admin Dose 30 MG; Start 07/25/18 at 06:00 Prednisone (Prednisone) 80 mg DAILY PO Last administered on 07/26/18at 09:18; Admin Dose 80 MG; Start 07/26/18 at 09:00 Insulin Glargine (Lantus) 16 units BID SC ; Start 07/26/18 at 21:00 Insulin Human NPH (Humulin N) 10 unit DAILY@0900 SC ; Start 07/27/18 at 09:00 MADAI DYSON DO Jul 26, 2018 16:47
--- NOTE | 2018-07-26 18:54 | CONS ---
Assessment/Plan Assessment/Plan Assessment/Plan (Daily) 1. Metabolic alkalosis due to prerenal azotemia 2. acute prerenal azotemia 3. ITP 4. severe thrombocytopenia 5. accelerated HTN Plan: Continue Hydralazine 50mg PO Q8 hr and MTP 50mg pO Q 8 hr BUN rising to 100, Cr 1.01, HCo3 33, likely prerenal, will give IVF + IV albumin will follow up Consultation Date/Type/Reason Admit Date/Time Jul 19, 2018 at 18:40 Initial Consult Date 07/22/18 Type of Consult NEPHROLOGY Requesting Provider: LES TRENT Date/Time of Note DATE: 07/26/18 TIME: 18:54 Exam/Review of Systems Exam Vitals Vital Signs Date Temp Pulse Resp B/P (MAP) Pulse Ox O2 O2 Flow FiO2 Time Delivery Rate 07/26/18 88 14 98 30 17:25 07/26/18 97.6 93/53 (66) Trach 15:48 Collar Intake and Output 07/25/18 07/25/18 07/26/18 1414:59 22:59 06:59 IntakeIntake Total 100 ml 1050 ml BalanceBalance 100 ml 1050 ml Exam Constitutional: alert, awake Respiratory: clear to auscultation, normal air movement, diminished breath sounds Cardiovascular: regular rate and rhythm, nl pulses Gastrointestinal: soft, non-tender Musculoskeletal: nl extremities to inspection, muscle weakness, swelling Extremities: normal pulses Neurological: 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 intact, nl mental status, nl speech, nl strength Skin: nl turgor Lymph: nl lymph nodes Results Result Diagram: 07/26/18 0603 07/26/18 0603 Results 24hrs Laboratory Tests Test 07/25/18 21:49 07/26/18 00:58 07/26/18 05:55 07/26/18 06:03 Bedside Glucose 290 H 256 H 262 H White Blood Count 7.1 Red Blood Count 3.03 L Hemoglobin 8.3 L Hematocrit 26.4 L Mean Corpuscular 87.1 Volume Mean Corpuscular 27.4 L Hemoglobin Mean Corpuscular 31.4 L Hemoglobin Concent Red Cell 17.2 H Distribution Width Platelet Count 36 L Mean Platelet Volume 13.0 H Immature 1.600 H Granulocytes % Neutrophils % 80.9 H Lymphocytes % 12.6 L Monocytes % 4.5 Eosinophils % 0.3 Basophils % 0.1 Nucleated Red Blood 3.2 H Cells % Immature 0.110 H Granulocytes # Neutrophils # 5.7 Lymphocytes # 0.9 Monocytes # 0.3 Eosinophils # 0.0 Basophils # 0.0 Nucleated Red Blood 0.2 H Cells # Sodium Level 136 Potassium Level 4.1 Chloride Level 95 L Carbon Dioxide Level 33 H Anion Gap 8 Blood Urea Nitrogen 100 H Creatinine 1.01 Est Glomerular > 60 Filtrat Rate mL/min Glucose Level 222 H Calcium Level 8.5 Test 07/26/18 09:16 07/26/18 13:32 07/26/18 16:19 Bedside Glucose 217 226 H 237 H Medications Medication Current Medications IV Flush (NS 3 ml) 3 ml PER PROTOCOL IV ; Start 07/19/18 at 19:30 Ondansetron HCl (Zofran Inj) 4 mg Q6H PRN IV NAUSEA/VOMITING; Start 07/19/18 at 19:30 Acetaminophen (Tylenol Tab) 650 mg Q6H PRN PO .PAIN 1-3 OR TEMP Last administered on 07/20/18at 10:01; Admin Dose 650 MG; Start 07/19/18 at 19:30 Morphine Sulfate (morphine) 2 mg Q4H PRN IV .PAIN 8-10 Last administered on 07/25/18at 23:10; Admin Dose 2 MG; Start 07/19/18 at 19:30 Acetaminophen (Tylenol Tab) 650 mg Q6H PRN PO MILD TO MODERATE PAIN; Start 07/19/18 at 19:30 Ascorbic Acid (Vitamin C) 500 mg DAILY PO Last administered on 07/26/18at 09:18; Admin Dose 500 MG; Start 07/20/18 at 09:00 Atorvastatin Calcium (Lipitor) 20 mg QHS PO Last administered on 07/25/18at 21:50; Admin Dose 20 MG; Start 07/19/18 at 21:00 Duloxetine HCl (Cymbalta) 30 mg DAILY PO Last administered on 07/26/18at 09:15; Admin Dose 30 MG; Start 07/20/18 at 09:00 Ferrous Sulfate (Ferrous Sulfate (Ec)) 325 mg DAILY PO Last administered on 07/26/18 09:19; Admin Dose 325 MG; Start 07/20/18 at 09:00; Stop 08/19/18 at 0 8:59 Gabapentin (Neurontin) 400 mg Q8 PO Last administered on 07/26/18 13:34; Admin Dose 400 MG; Start 07/19/18 at 22:00 Hydralazine HCl (Apresoline) 50 mg Q8 PO Last administered on 07/26/18 13:35; Admin Dose 50 MG; Start 07/19/18 at 22:00 Isosorbide Dinitrate (Isordil) 10 mg TID PO Last administered on 07/26/18 13:35; Admin Dose 10 MG; Start 07/19/18 at 21:00 Metoprolol Tartrate (Lopressor) 50 mg Q8 PO Last administered on 07/26/18 13:34; Admin Dose 50 MG; Start 07/19/18 at 22:00 Multivitamins Therapeutic (Theragran) 1 tab DAILY PO Last administered on 07/26/18 09:18; Admin Dose 1 TAB; Start 07/20/18 at 09:00 Nitroglycerin (Nitroglycerin (Sl Tab) 0.4 Mg) 1 tab [id number] PRN SL CHEST PAIN; Start 07/19/18 at 19:30 Ondansetron HCl (Zofran Tab) 4 mg Q4H PRN PO NAUSEA AND/OR VOMITING; Start 07/19/18 at 19:30 Senna (Senokot) 1 tab BID PO Last administered on 07/26/18 09:17; Admin Dose 1 TAB; Start 07/19/18 at 21:00 Tramadol HCl (Ultram) 50 mg Q6H PRN PO PAIN LEVEL 4-7 Last administered on 07/22/18 00:20; Admin Dose 50 MG; Start 07/19/18 at 19:30 [facility]isc[facility] This patient pedro... PRN PRN XX WOUND CARE; Start 07/20/18 at 01:30 Insulin Aspart (Novolog Insulin Pen) NOVOLOG *MODERATE* ALGORI... Q4 SC Last administered on 07/26/18 16:25; Admin Dose 6 UNIT; Start 07/20/18 at 17:00 Lorazepam (Ativan) 0.5 mg Q6 PRN IV AGITATION/ANXIETY Last administered on 07/26/18 14:26; Admin Dose 0.5 MG; Start 07/22/18 at 17:00 Lansoprazole (Prevacid) 30 mg DAILY@06 GTB Last administered on 07/26/18at 05:56; Admin Dose 30 MG; Start 07/25/18 at 06:00 Prednisone (Prednisone) 80 mg DAILY PO Last administered on 07/26/18at 09:18; Admin Dose 80 MG; Start 07/26/18 at 09:00 Insulin Glargine (Lantus) 16 units BID SC ; Start 07/26/18 at 21:00 Insulin Human NPH (Humulin N) 10 unit DAILY@0900 SC ; Start 07/27/18 at 09:00 OCTAVIO BOX MD Jul 26, 2018 18:54
[2018-07-26] MEDS: ATORVASTATIN 20 MG TAB PO SCH (20:36)
[2018-07-26] MEDS: morphine 2 MG INJ IV PRN (22:58)
[2018-07-27] VITALS (24 sets, daily range): BP systolic 107–127; BP diastolic 56–74; PULSE 58–78; RESP 14–22
[2018-07-27] MEDS: INSULIN ASPART [NOVOLOG] 3 ML PEN SC SCH ×6 (00:10→21:12)
[2018-07-27] MEDS: LANSOPRAZOLE 30 MG CAP GTB SCH (05:50)
[2018-07-27] MEDS: GABAPENTIN 400 MG CAP PO SCH (05:50)
[2018-07-27] MEDS: METOPROLOL 50 MG TAB PO SCH (05:52)
[2018-07-27] MEDS: FERROUS SULFATE (EC) 325 MG TAB PO SCH (08:45)
[2018-07-27] MEDS ORDERED: ACETAMINOPHEN 325 MG TAB GTB PRN (09:00)
[2018-07-27] MEDS ORDERED: NPH, HUMAN INSULIN ISOPHANE 3ML VIAL SC SCH (09:00)
[2018-07-27] MEDS ORDERED: GLUCOSE GEL 15 GRAM TUBE PO PRN ×2 (09:00)
[2018-07-27] MEDS ORDERED: DEXTROSE 50% 50 ML SYRINGE IV PRN ×2 (09:00)
[2018-07-27] MEDS ORDERED: ONDANSETRON 4 MG TAB GTB PRN (09:00)
[2018-07-27] MEDS ORDERED: traMADol 50 MG TAB GTB PRN (09:00)
[2018-07-27] MEDS ORDERED: GLUCOSE GEL 15 GRAM TUBE BUCCAL PRN (09:00)
[2018-07-27] MEDS ORDERED: predniSONE 20 MG TAB GTB SCH (09:00)
[2018-07-27] MEDS ORDERED: GLUCAGON 1 MG INJ IM PRN (09:00)
[2018-07-27] MEDS: INSULIN GLARGINE [LANTus] (100 UNITS/ML) SYG SC SCH ×2 (09:02→21:13)
[2018-07-27] MEDS: SENNA TAB GTB SCH ×2 (09:37→20:51)
[2018-07-27] MEDS: ASCORBIC ACID 500 MG TAB GTB SCH (09:38)
[2018-07-27] MEDS: ISOSORBIDE DINITRATE 10 MG TAB GTB SCH ×3 (09:38→21:18)
[2018-07-27] MEDS: DULOXETINE 30 MG CAP DR GTB SCH (09:38)
[2018-07-27] MEDS: MULTIVITAMINS 30 ML CUP GTB SCH (09:40)
--- NOTE | 2018-07-27 13:05 | CONS ---
Assessment/Plan Assessment/Plan Assessment/Plan (Daily) 1. Uremia with BUN rising to 100, Cr normal 3. ITP 4. severe thrombocytopenia 5. accelerated HTN 6. VDRF s/p Tracheostomy 7. Dysphagia S/p G tube Plan: Continue Hydralazine 50mg PO Q8 hr and MTP 50mg pO Q 8 hr BUN rising to 100, Cr 1.01, HCo3 33, decrease prednisone to 40mg NGTube daily,m plan is to taper it next 2-3 days IVF NS at 50 cc/hr x 1 liter then stop will follow up Consultation Date/Type/Reason Admit Date/Time Jul 19, 2018 at 18:40 Initial Consult Date 07/22/18 Type of Consult NEPHROLOGY Requesting Provider: LES TRENT Date/Time of Note DATE: 07/27/18 TIME: 13:03 24 HR Interval Summary Free Text/Dictation BUN rising to 100, Cr 1.01- pt is on high dose prednisone 80mg daily, BP stable Exam/Review of Systems Exam Vitals Vital Signs Date Temp Pulse Resp B/P (MAP) Pulse Ox O2 O2 Flow FiO2 Time Delivery Rate 07/27/18 60 12:26 07/27/18 98.0 20 121/61 99 11:51 (81) 07/27/18 30 11:25 07/27/18 Mechanical 00:00 Ventilator Intake and Output 07/26/18 07/26/18 07/27/18 1515:00 23:00 07:00 IntakeIntake Total 1230 ml 1230 ml BalanceBalance 1230 ml 1230 ml Exam Constitutional: alert, awake + tracheostomy Respiratory: clear to auscultation, normal air movement, diminished breath sounds Cardiovascular: regular rate and rhythm, nl pulses Gastrointestinal: soft, non-tender, + g tube in place Musculoskeletal: nl extremities to inspection, muscle weakness, swelling Extremities: normal pulses Neurological: SKI PRODUCTION SUPERVISOR II-XII intact, nl mental status, nl speech, nl strength Results Result Diagram: 07/26/18 0603 07/26/18 0603 Results 24hrs Laboratory Tests Test 07/26/18 13:32 07/26/18 16:19 07/26/18 20:36 07/26/18 23:56 Bedside Glucose 226 H 237 H 292 H 295 H Test 07/27/18 05:50 07/27/18 08:54 Bedside Glucose 289 H 301 H Medications Medication Current Medications IV Flush (NS 3 ml) 3 ml PER PROTOCOL IV ; Start 07/19/18 at 19:30 Ondansetron HCl (Zofran Inj) 4 mg Q6H PRN IV NAUSEA/VOMITING; Start 07/19/18 at 19:30 Morphine Sulfate (morphine) 2 mg Q4H PRN IV .PAIN 8-10 Last administered on 07/26/18at 22:58; Admin Dose 2 MG; Start 07/19/18 at 19:30 Ferrous Sulfate (Ferrous Sulfate (Ec)) 325 mg DAILY PO Last administered on 07/26/18 09:19; Admin Dose 325 MG; Start 07/20/18 at 09:00; Stop 08/19/18 at 08:59 Nitroglycerin (Nitroglycerin (Sl Tab) 0.4 Mg) 1 tab [id number] PRN SL CHEST PAIN; Start 07/19/18 at 19:30 [facility] This patient pedro... PRN PRN XX WOUND CARE; Start 07/20/18 at 01:30 Insulin Aspart (Novolog Insulin Pen) NOVOLOG *MODERATE* ALGORI... Q4 SC Last administered on 07/27/18at 09:03; Admin Dose 10 UNIT; Start 07/20/18 at 17:00 Lorazepam (Ativan) 0.5 mg Q6 PRN IV AGITATION/ANXIETY Last administered on 07/26/18at 14:26; Admin Dose 0.5 MG; Start 07/22/18 at 17:00 Lansoprazole (Prevacid) 30 mg DAILY@06 GTB Last administered on 07/27/18at 05:50; Admin Dose 30 MG; Start 07/25/18 at 06:00 Insulin Glargine (Lantus) 16 units BID SC Last administered on 07/27/18at 09:02; Admin Dose 16 UNITS; Start 07/26/18 at 21:00 Insulin Human NPH (Humulin N) 10 unit DAILY@0900 SC Last administered on 07/27/18at 09:40; Admin Dose 10 UNIT; Start 07/27/18 at 09:00 Acetaminophen (Tylenol Tab) 650 mg Q6H PRN GTB .PAIN 1-3 OR TEMP; Start 07/27/18 at 09:00 Acetaminophen (Tylenol Tab) 650 mg Q6H PRN GTB MILD TO MODERATE PAIN; Start 07/27/18 at 09:00 Ascorbic Acid (Vitamin C) 500 mg DAILY GTB Last administered on 07/27/18at 09: 38; Admin Dose 500 MG; Start 07/27/18 at 09:00 Atorvastatin Calcium (Lipitor) 20 mg QHS GTB ; Start 07/27/18 at 21:00 Duloxetine HCl (Cymbalta) 30 mg DAILY GTB Last administered on 07/27/18at 09:38; Admin Dose 30 MG; Start 07/27/18 at 09:00 Gabapentin (Neurontin) 400 mg Q8 GTB ; Start 07/27/18 at 14:00 Hydralazine HCl (Apresoline) 50 mg Q8 GTB ; Start 07/27/18 at 14:00 Isosorbide Dinitrate (Isordil) 10 mg TID GTB Last administered on 07/27/18at 09:38; Admin Dose 10 MG; Start 07/27/18 at 09:00 Metoprolol Tartrate (Lopressor) 50 mg Q8 GTB ; Start 07/27/18 at 14:00 Multivitamins (Multivitamin) 30 ml DAILY GTB Last administered on 07/27/18at 09:40; Admin Dose 30 ML; Start 07/27/18 at 09:00 Ondansetron HCl (Zofran Tab) 4 mg Q4H PRN GTB NAUSEA AND/OR VOMITING; Start 07/27/18 at 09:00 Prednisone (Prednisone) 80 mg DAILY GTB Last administered on 07/27/18at 09:38; Admin Dose 80 MG; Start 07/27/18 at 09:00 Senna (Senokot) 1 tab BID GTB Last administered on 07/27/18at 09:37; Admin Dose 1 TAB; Start 07/27/18 at 09:00 Tramadol HCl (Ultram) 50 mg Q6H PRN GTB PAIN LEVEL 4-7; Start 07/27/18 at 09:00 Miscellaneous Information 1 ea NOTE XX ; Start 07/27/18 at 09:00 Glucose (Glutose) 15 gm Q15M PRN PO DECREASED GLUCOSE; Start 07/27/18 at 09:00 Glucose (Glutose) 22.5 gm Q15M PRN PO DECREASED GLUCOSE; Start 07/27/18 at 09:00 Dextrose (D50w Syringe) 25 ml Q15M PRN IV DECREASED GLUCOSE; Start 07/27/18 at 09:00 Dextrose (D50w Syringe) 50 ml Q15M PRN IV DECREASED GLUCOSE; Start 07/27/18 at 09:00 Glucagon (Glucagen) 1 mg Q15M PRN IM DECREASED GLUCOSE; Start 07/27/18 at 09:00 Glucose (Glutose) 15 gm Q15M PRN BUCCAL DECREASED GLUCOSE; Start 07/27/18 at 09:00 OCTAVIO BOX MD Jul 27, 2018 13:05
[2018-07-27] MEDS: GABAPENTIN 400 MG CAP GTB SCH ×2 (13:20→21:33)
[2018-07-27] MEDS: METOPROLOL 50 MG TAB GTB SCH ×2 (13:20→21:33)
[2018-07-27] MEDS ORDERED: SOD CHLORIDE 0.9% 1,000 ML IV SCH (13:30)
--- NOTE | 2018-07-27 13:38 | CONS ---
Assessment/Plan Assessment/Plan Problems: (1) Diabetes mellitus type 2 with complications Status: Chronic Comment: Sugars are a little bit elevated. Please note that the dosage of the glucocorticoid was suggested by nephrology. I am going to continue the NPH insulin given simultaneously with this to try and bring him under control. 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 Qualified Codes: E11.8 - Type 2 diabetes mellitus with unspecified complications; Z79.4 - exterminator (current) use of insulin Consultation Date/Type/Reason Admit Date/Time Jul 19, 2018 at 18:40 Initial Consult Date 07/24/18 Type of Consult Endocrine Reason for Consultation Diabetes mellitus type 2 with hyperglycemia due to exogenous glucocorticoid therapy for ITP Requesting Provider: LES TRENT Date/Time of Note DATE: 07/27/18 TIME: 13:37 24 HR Interval Summary Constitutional: no complaints Detailed Summary Neurologic: no complaints Endocrine: no complaints Exam/Review of Systems Exam Vitals Vital Signs Date Temp Pulse Resp B/P (MAP) Pulse Ox O2 O2 Flow FiO2 Time Delivery Rate 07/27/18 63 14 95 30 13:27 07/27/18 98.0 121/61 11:51 (81) 07/27/18 Mechanical 00:00 Ventilator Intake and Output 07/26/18 07/26/18 07/27/18 1515:00 23:00 07:00 IntakeIntake Total 1230 ml 1230 ml BalanceBalance 1230 ml 1230 ml Constitutional: alert Respiratory: clear to auscultation, normal air movement Cardiovascular: regular rate and rhythm, nl pulses Results Result Diagram: 07/26/18 0603 07/26/18 0603 Results 24hrs Laboratory Tests Test 07/26/18 16:19 07/26/18 20:36 07/26/18 23:56 07/27/18 05:50 Bedside Glucose 237 H 292 H 295 H 289 H Test 07/27/18 08:54 07/27/18 13:19 Bedside Glucose 301 H 254 H Medications Medication Current Medications IV Flush (NS 3 ml) 3 ml PER PROTOCOL IV ; Start 07/19/18 at 19:30 Ondansetron HCl (Zofran Inj) 4 mg Q6H PRN IV NAUSEA/VOMITING; Start 07/19/18 at 19:30 Morphine Sulfate (morphine) 2 mg Q4H PRN IV .PAIN 8-10 Last administered on 07/26/18at 22:58; Admin Dose 2 MG; Start 07/19/18 at 19:30 Ferrous Sulfate (Ferrous Sulfate (Ec)) 325 mg DAILY PO Last administered on at 09:19; Admin Dose 325 MG; Start 07/20/18 at 09:00; Stop 08/19/18 at 08:59 Nitroglycerin (Nitroglycerin (Sl Tab) 0.4 Mg) 1 tab [id number] PRN SL CHEST PAIN; Start 07/19/18 at 19:30 Miscellaneous Information (Pending [facility] Order For Wound Care) This patient pedro... PRN PRN XX WOUND CARE; Start 07/20/18 at 01:30 Insulin Aspart (Novolog Insulin Pen) NOVOLOG *MODERATE* ALGORI... Q4 SC Last administered on 07/27/18at 13:28; Admin Dose 6 UNIT; Start 07/20/18 at 17:00 Lorazepam (Ativan) 0.5 mg Q6 PRN IV AGITATION/ANXIETY Last administered on 07/26/18at 14:26; Admin Dose 0.5 MG; Start 07/22/18 at 17:00 Lansoprazole (Prevacid) 30 mg DAILY@06 GTB Last administered on 07/27/18at 05:50; Admin Dose 30 MG; Start 07/25/18 at 06:00 Insulin Glargine (Lantus) 16 units BID SC Last administered on 07/27/18at 09:02; Admin Dose 16 UNITS; Start 07/26/18 at 21:00 Insulin Human NPH (Humulin N) 10 unit DAILY@0900 SC Last administered on 07/27/18at 09:40; Admin Dose 10 UNIT; Start 07/27/18 at 09:00 Acetaminophen (Tylenol Tab) 650 mg Q6H PRN GTB .PAIN 1-3 OR TEMP; Start 07/27/18 at 09:00 Acetaminophen (Tylenol Tab) 650 mg Q6H PRN GTB MILD TO MODERATE PAIN; Start 07/27/18 at 09:00 Ascorbic Acid (Vitamin C) 500 mg DAILY GTB Last administered on 07/27/18at 09:38; Admin Dose 500 MG; Start 07/27/18 at 09:00 Atorvastatin Calcium (Lipitor) 20 mg QHS GTB ; Start 07/27/18 at 21:00 Duloxetine HCl (Cymbalta) 30 mg DAILY GTB Last administered on 07/27/18at 09:38; Admin Dose 30 MG; Start 07/27/18 at 09:00 Gabapentin (Neurontin) 400 mg Q8 GTB Last administered on 07/27/18at 13:20; Admin Dose 400 MG; Start 07/27/18 at 14:00 Hydralazine HCl (Apresoline) 50 mg Q8 GTB Last administered on 07/27/18at 13:20; Admin Dose 50 MG; Start 07/27/18 at 14:00 Isosorbide Dinitrate (Isordil) 10 mg TID GTB Last administered on 07/27/18at 13:20; Admin Dose 10 MG; Start 07/27/18 at 09:00 Metoprolol Tartrate (Lopressor) 50 mg Q8 GTB Last administered on 07/27/18at 13:20; Admin Dose 50 MG; Start 07/27/18 at 14:00 Multivitamins (Multivitamin) 30 ml DAILY GTB Last administered on 07/27/18at 09:40; Admin Dose 30 ML; Start 07/27/18 at 09:00 Ondansetron HCl (Zofran Tab) 4 mg Q4H PRN GTB NAUSEA AND/OR VOMITING; Start 07/27/18 at 09:00 Senna (Senokot) 1 tab BID GTB Last administered on 07/27/18at 09:37; Admin Dose 1 TAB; Start 07/27/18 at 09:00 Tramadol HCl (Ultram) 50 mg Q6H PRN GTB PAIN LEVEL 4-7; Start 07/27/18 at 09:00 Miscellaneous Information 1 ea NOTE XX ; Start 07/27/18 at 09:00 Glucose (Glutose) 15 gm Q15M PRN PO DECREASED GLUCOSE; Start 07/27/18 at 09:00 Glucose (Glutose) 22.5 gm Q15M PRN PO DECREASED GLUCOSE; Start 07/27/18 at 09:00 Dextrose (D50w Syringe) 25 ml Q15M PRN IV DECREASED GLUCOSE; Start 07/27/18 at 09:00 Dextrose (D50w Syringe) 50 ml Q15M PRN IV DECREASED GLUCOSE; Start 4/28/19 at 09:00 Glucagon (Glucagen) 1 mg Q15M PRN IM DECREASED GLUCOSE; Start 07/27/18 at 09:00 Glucose (Glutose) 15 gm Q15M PRN BUCCAL DECREASED GLUCOSE; Start 07/27/18 at 09:00 Prednisone (Prednisone) 40 mg DAILY GTB ; Start 07/28/18 at 09:00; Status UNV Sodium Chloride 1,000 ml @ 50 mls/hr Q20H IV ; Start 07/27/18 at 13:30; Status UNV DORIAN ACOSTA MD Jul 27, 2018 13:38
--- NOTE | 2018-07-27 13:49 | PN ---
Date/Time of Note Date/Time of Note DATE: 07/27/18 TIME: 13:48 Assessment/Plan VTE Prophylaxis Risk score (from Ns)>0 risk: 6 SCD applied (from [facility]): No SCD contraindicated: other Pharmacological prophylaxis: other Pharm contraindication: other Lines/Catheters IV C[facility]ter Type [facility]from [facility] Mid Line Central line still needed: Yes Urinary Cath still in place: No Assessment/Plan Assessment/Plan - Hyperkalemia- resolved - Severe thrombocytopenia secondary to ITP; platelets 11 - s/p Decadron and IVIG. Pt continued on Prednisone. - per hematology consultation. -VDRF with tracheostomy on 02/19/18. - per pulmonary - Azotemia - per nephro consult - monitor renal functions -Hx of Atrial fibrillation and atrial flutter. - unable to tolerate anticoagulation due to severe thrombocytopenia. 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 BS elevated - Continue Lantus and NovoLog. - per Endo consult -Anemia, monitor H&H. - Dysphagia -SP PEG placement on 02/19/18. -Colostomy -Bilateral BKA -Major depressive disorder -Hx of Stage III sacral decubitus ulcer Further recommendations based on clinical course. Plan of care discussed with Dr. Villatoro. Result Diagram: 07/26/18 0603 07/26/18 0603 Results 24hrs Laboratory Tests Test 07/26/18 16:19 07/26/18 20:36 07/26/18 23:56 07/27/18 05:50 Bedside Glucose 237 H 292 H 295 H 289 H Test 07/27/18 08:54 07/27/18 13:19 Bedside Glucose 301 H 254 H Subjective 24 Hr Interval Summary Free Text/Dictation - NAD - afebrile - VSS - lethargic - no new events reported last night -sister at bed side; from [facility]- all Qs answered Subjective hx not possible: pt non-verbal Constitutional: requiring O2 Exam/Review of Systems Exam Vitals Vital Signs Date Temp Pulse Resp B/P (MAP) Pulse Ox O2 O2 Flow FiO2 Time Delivery Rate 07/27/18 63 14 95 30 13:27 07/27/18 98.0 121/61 11:51 (81) 07/27/18 Mechanical 00:00 Ventilator Intake and Output 07/26/18 07/26/18 07/27/18 1515:00 23:00 07:00 IntakeIntake Total 1230 ml 1230 ml BalanceBalance 1230 ml 1230 ml Constitutional: alert, non-verbal Psych: nl mood/affect Eyes: nl lids, nl sclera ENMT: nl external ears & nose Neck: other (trach intact) Respiratory: diminished breath sounds, other Cardiovascular: nl pulses, other (s1s2) Gastrointestinal: soft, other (GT/Colostomy intact) Musculoskeletal: muscle weakness, range of motion, other (George BKA) Extremities: edema Neurological: confused Skin: other (decub) Results Results 24hrs Laboratory Tests Test 07/26/18 16:19 07/26/18 20:36 07/26/18 23:56 07/27/18 05:50 Bedside Glucose 237 H 292 H 295 H 289 H Test 07/27/18 08:54 07/27/18 13:19 Bedside Glucose 301 H 254 H Medications Medication Current Medications IV Flush (NS 3 ml) 3 ml PER PROTOCOL IV ; Start 07/19/18 at 19:30 Ondansetron HCl (Zofran Inj) 4 mg Q6H PRN IV NAUSEA/VOMITING; Start 07/19/18 at 19:30 Morphine Sulfate (morphine) 2 mg Q4H PRN IV .PAIN 8-10 Last administered on 07/26/18at 22:58; Admin Dose 2 MG; Start 07/19/18 at 19:30 Ferrous Sulfate (Ferrous Sulfate (Ec)) 325 mg DAILY PO Last administered on 07/26/18at 09:19; Admin Dose 325 MG; Start 07/20/18 at 09:00; Stop 08/19/18 at 08:59 Nitroglycerin (Nitroglycerin (Sl Tab) 0.4 Mg) 1 tab [id number] PRN SL CHEST PAIN; Start 07/19/18 at 19:30 Miscellaneous Information [facility] This patient pedro... PRN PRN XX WOUND CARE; Start 07/20/18 at 01:30 Insulin Aspart (Novolog Insulin Pen) NOVOLOG *MODERATE* ALGORI... Q4 SC Last administered on 07/27/18 13:28; Admin Dose 6 UNIT; Start 07/20/18 at 17:00 Lorazepam (Ativan) 0.5 mg Q6 PRN IV AGITATION/ANXIETY Last administered on 07/26/18 14:26; Admin Dose 0.5 MG; Start 07/22/18 at 17:00 Lansoprazole (Prevacid) 30 mg DAILY@06 GTB Last administered on 07/27/18 05 :50; Admin Dose 30 MG; Start 07/25/18 at 06:00 Insulin Glargine (Lantus) 16 units BID SC Last administered on 07/27/18 09:02; Admin Dose 16 UNITS; Start 07/26/18 at 21:00 Acetaminophen (Tylenol Tab) 650 mg Q6H PRN GTB .PAIN 1-3 OR TEMP; Start 07/27/18 at 09:00 Acetaminophen (Tylenol Tab) 650 mg Q6H PRN GTB MILD TO MODERATE PAIN; Start 07/27/18 at 09:00 Ascorbic Acid (Vitamin C) 500 mg DAILY GTB Last administered on 07/27/18 09:38; Admin Dose 500 MG; Start 07/27/18 at 09:00 Atorvastatin Calcium (Lipitor) 20 mg QHS GTB ; Start 07/27/18 at 21:00 Duloxetine HCl (Cymbalta) 30 mg DAILY GTB Last administered on 07/27/18 09:38; Admin Dose 30 MG; Start 07/27/18 at 09:00 Gabapentin (Neurontin) 400 mg Q8 GTB Last administered on 07/27/18 13:20; Admin Dose 400 MG; Start 07/27/18 at 14:00 Hydralazine HCl (Apresoline) 50 mg Q8 GTB Last administered on 07/27/18 13:20; Admin Dose 50 MG; Start 07/27/18 at 14:00 Isosorbide Dinitrate (Isordil) 10 mg TID GTB Last administered on 07/27/18 13: 20; Admin Dose 10 MG; Start 07/27/18 at 09:00 Metoprolol Tartrate (Lopressor) 50 mg Q8 GTB Last administered on 07/27/18 13:20; Admin Dose 50 MG; Start 07/27/18 at 14:00 Multivitamins (Multivitamin) 30 ml DAILY GTB Last administered on 07/27/18at 09:40; Admin Dose 30 ML; Start 07/27/18 at 09:00 Ondansetron HCl (Zofran Tab) 4 mg Q4H PRN GTB NAUSEA AND/OR VOMITING; Start 07/27/18 at 09:00 Senna (Senokot) 1 tab BID GTB Last administered on 07/27/18at 09:37; Admin Dose 1 TAB; Start 07/27/18 at 09:00 Tramadol HCl (Ultram) 50 mg Q6H PRN GTB PAIN LEVEL 4-7; Start 07/27/18 at 09:00 Miscellaneous Information 1 ea NOTE XX ; Start 07/27/18 at 09:00 Glucose (Glutose) 15 gm Q15M PRN PO DECREASED GLUCOSE; Start 07/27/18 at 09:00 Glucose (Glutose) 22.5 gm Q15M PRN PO DECREASED GLUCOSE; Start 07/27/18 at 09:00 Dextrose (D50w Syringe) 25 ml Q15M PRN IV DECREASED GLUCOSE; Start 07/27/18 at 09:00 Dextrose (D50w Syringe) 50 ml Q15M PRN IV DECREASED GLUCOSE; Start 07/27/18 at 09:00 Glucagon (Glucagen) 1 mg Q15M PRN IM DECREASED GLUCOSE; Start 07/27/18 at 09:00 Glucose (Glutose) 15 gm Q15M PRN BUCCAL DECREASED GLUCOSE; Start 07/27/18 at 09:00 Prednisone (Prednisone) 40 mg DAILY GTB ; Start 07/28/18 at 09:00; Status UNV Sodium Chloride 1,000 ml @ 50 mls/hr Q20H IV Last administered on 07/27/18at 13:46; Admin Dose 50 MLS/HR; Start 07/27/18 at 13:30; Stop 07/28/18 at 09:29 Insulin Human NPH (Humulin N) 14 unit DAILY@0900 SC ; Start 07/28/18 at 09:00 LES TRENT Jul 27, 2018 13:49
--- NOTE | 2018-07-27 14:18 | CONS ---
Consult Date/Type/Reason Admit Date/Time Jul 19, 2018 at 18:40 Initial Consult Date Requesting Provider: LES TRENT Date/Time of Note DATE: 07/27/18 TIME: 14:16 Subjective NO acute events - pt comfortable - in good fluid status - con't to monitor. Sister at bedside - happy with care. ROS: No fever, no chills, no nausea, no vomiting, no diarrhea/constipation No recent weight changes No chest pain, no PND, no orthopnea - chronic SOB, pain controlled. No dizziness, blurred vision No thirst, no heat or cold intolerance Objective Vitals Vital Signs Date Temp Pulse Resp B/P (MAP) Pulse Ox O2 O2 Flow FiO2 Time Delivery Rate 07/27/18 63 14 95 30 13:27 07/27/18 98.0 121/61 11:51 (81) 07/27/18 Mechanical 00:00 Ventilator Intake and Output 07/26/18 07/26/18 07/27/18 1414:59 22:59 06:59 IntakeIntake Total 1230 ml 1230 ml BalanceBalance 1230 ml 1230 ml Exam General: WN/WD/NAD, AOx 3 HEENT: Unicetric/atraumatic/EOMI ( follow commands) NECK: trach Lymph: no lymphadenopathy HEART: regular with no S3, II/ systolic murmur at apex, pacer, AVR LUNGS: Coarse sounds ABD: soft, NT, ND, +BS : Intact Neuro: non focal SKIN: chronic changes EXT: amputated Results/Medications Result Diagram: 07/26/18 0603 07/26/18 0603 Results 24 hrs Laboratory Tests Test 07/26/18 16:19 07/26/18 20:36 07/26/18 23:56 07/27/18 05:50 Bedside Glucose 237 H 292 H 295 H 289 H Test 07/27/18 08:54 07/27/18 13:19 Bedside Glucose 301 H 254 H Home Meds Reported Medications Tramadol HCl (Tramadol HCl) 50 Mg Tablet, 50 MG PO Q6H PRN for PAIN LEVEL 7-10, #120 TAB 06/23/18 Hydralazine Hcl* (Hydralazine Hcl*) 50 Mg Tab, 50 MG PO Q8 for hypertension, #90 TAB 06/23/18 Gabapentin* (Neurontin*) 400 Mg Capsule, 400 MG PO Q8, #90 CAP 06/23/18 Insulin Isophan/Regular (Humulin 70/30) 100 Units/Ml Susp, 18 UNIT SC Q8, EA 06/23/18 Omeprazole* (Omeprazole*) 40 Mg Capsule.dr, 40 MG PO DAILY, #30 CAP 06/23/18 Metoprolol Tartrate* (Lopressor*) 50 Mg Tab, 50 MG PO Q8, #60 TAB 06/23/18 Atorvastatin Calcium* (Atorvastatin Calcium*) 20 Mg Tablet, 20 MG PO QHS, #30 TAB 06/23/18 Ondansetron Hcl* (Ondansetron Hcl*) 4 Mg Tablet, 4 MG PO Q4H PRN for NAUSEA AND OR VOMITING, TAB 11/11/17 Budesonide-Formoterol Fumarate* (Symbicort*) 160-4.5 Hfa.aer.ad, 1 PUFF INHALATION BID, #1 EACH 11/11/17 Sennosides* (Senna Lax*) 8.6 Mg Tablet, 1 TAB PO BID, TAB 11/11/17 Multivitamins* (Theragran*) 1 Tab Tab, 1 TAB PO DAILY, TAB 11/11/17 Isosorbide Dinitrate* (Isosorbide Dinitrate*) 10 Mg Tablet, 10 MG PO TID, TAB 11/11/17 Ascorbic Acid* (Vitamin C*) 500 Mg Capsule.sa, 500 MG PO DAILY, CAP 11/11/17 Pantoprazole* (Protonix*) 40 Mg Tablet.dr, 40 MG PO AC BREAKFAST, TAB 08/07/17 Apixaban* (Eliquis*) 5 Mg Tablet, 5 MG PO BID, TAB 08/07/17 Nitroglycerin* (Nitrostat*) 0.4 Mg Tab.subl, 0.4 MG SL Q5MIN PRN for CHEST PAIN, BOTTLE 05/19/17 Duloxetine Hcl* (Cymbalta*) 30 Mg Capsule.dr, 30 MG PO DAILY, CAP 05/19/17 Acetaminophen* (Acetaminophen*) 650 Mg Tablet, 650 MG PO Q6H PRN for MILD TO MODERATE PAIN, #30 TAB 03/18/17 Alprazolam* (Alprazolam*) 0.25 Mg Tablet, 0.25 MG PO TID PRN for ANXIETY, TAB 03/18/17 Ferrous Sulfate* (Ferrous Sulfate*) 325 Mg Tabec, 325 MG PO DAILY, TAB 03/18/17 Medications Current Medications IV Flush (NS 3 ml) 3 ml PER PROTOCOL IV ; Start 07/19/18 at 19:30 Ondansetron HCl (Zofran Inj) 4 mg Q6H PRN IV NAUSEA/VOMITING; Start 07/19/18 at 19:30 Morphine Sulfate (morphine) 2 mg Q4H PRN IV .PAIN 8-10 Last administered on 07/26/18at 22:58; Admin Dose 2 MG; Start 07/19/18 at 19:30 Ferrous Sulfate (Ferrous Sulfate (Ec)) 325 mg DAILY PO Last administered on 07/26/18at 09:19; Admin Dose 325 MG; Start 07/20/18 at 09:00; Stop 08/19/18 at 08:59 Nitroglycerin (Nitroglycerin (Sl Tab) 0.4 Mg) 1 tab [id number] PRN SL CHEST PAIN; Start 07/19/18 at 19:30 [facility]isc[facility] This patient pedro... PRN PRN XX WOUND CARE; Start 07/20/18 at 01:30 Insulin Aspart (Novolog Insulin Pen) NOVOLOG *MODERATE* ALGORI... Q4 SC Last administered on 07/27/18at 13:28; Admin Dose 6 UNIT; Start 07/20/18 at 17:00 Lorazepam (Ativan) 0.5 mg Q6 PRN IV AGITATION/ANXIETY Last administered on 07/26/18at 14:26; Admin Dose 0.5 MG; Start 07/22/18 at 17:00 Lansoprazole (Prevacid) 30 mg DAILY@06 GTB Last administered on 07/27/18at 05:50; Admin Dose 30 MG; Start 07/25/18 at 06:00 Insulin Glargine (Lantus) 16 units BID SC Last administered on 07/27/18at 09:02; Admin Dose 16 UNITS; Start 07/26/18 at 21:00 Acetaminophen (Tylenol Tab) 650 mg Q6H PRN GTB .PAIN 1-3 OR TEMP; Start 07/27/18 at 09:00 Acetaminophen (Tylenol Tab) 650 mg Q6H PRN GTB MILD TO MODERATE PAIN; Start 07/27/18 at 09:00 Ascorbic Acid (Vitamin C) 500 mg DAILY GTB Last administered on 07/27/18at 09:38; Admin Dose 500 MG; Start 07/27/18 at 09:00 Atorvastatin Calcium (Lipitor) 20 mg QHS GTB ; Start 07/27/18 at 21:00 Duloxetine HCl (Cymbalta) 30 mg DAILY GTB Last administered on 07/27/18 09:38; Admin Dose 30 MG; Start 07/27/18 at 09:00 Gabapentin (Neurontin) 400 mg Q8 GTB Last administered on 07/27/18 13:20; Admin Dose 400 MG; Start 07/27/18 at 14:00 Hydralazine HCl (Apresoline) 50 mg Q8 GTB Last administered on 07/27/18 13:20; Admin Dose 50 MG; Start 07/27/18 at 14:00 Isosorbide Dinitrate (Isordil) 10 mg TID GTB Last administered on 07/27/18 13:20; Admin Dose 10 MG; Start 07/27/18 at 09:00 Metoprolol Tartrate (Lopressor) 50 mg Q8 GTB Last administered on 07/27/18 13:20; Admin Dose 50 MG; Start 07/27/18 at 14:00 Multivitamins (Multivitamin) 30 ml DAILY GTB Last administered on 07/27/18at 09:40; Admin Dose 30 ML; Start 07/27/18 at 09:00 Ondansetron HCl (Zofran Tab) 4 mg Q4H PRN GTB NAUSEA AND/OR VOMITING; Start 07/27/18 at 09:00 Senna (Senokot) 1 tab BID GTB Last administered on 07/27/18at 09:37; Admin Dose 1 TAB; Start 07/27/18 at 09:00 Tramadol HCl (Ultram) 50 mg Q6H PRN GTB PAIN LEVEL 4-7; Start 07/27/18 at 09:00 Miscellaneous Information 1 ea NOTE XX ; Start 07/27/18 at 09:00 Glucose (Glutose) 15 gm Q15M PRN PO DECREASED GLUCOSE; Start 07/27/18 at 09:00 Glucose (Glutose) 22.5 gm Q15M PRN PO DECREASED GLUCOSE; Start 07/27/18 at 09:00 Dextrose (D50w Syringe) 25 ml Q15M PRN IV DECREASED GLUCOSE; Start 07/27/18 at 09:00 Dextrose (D50w Syringe) 50 ml Q15M PRN IV DECREASED GLUCOSE; Start 07/27/18 at 09:00 Glucagon (Glucagen) 1 mg Q15M PRN IM DECREASED GLUCOSE; Start 07/27/18 at 09:00 Glucose (Glutose) 15 gm Q15M PRN BUCCAL DECREASED GLUCOSE; Start 07/27/18 at 09:00 Prednisone (Prednisone) 40 mg DAILY GTB ; Start 07/28/18 at 09:00 Sodium Chloride 1,000 ml @ 50 mls/hr Q20H IV Last administered on 07/27/18at 13:46; Admin Dose 50 MLS/HR; Start 07/27/18 at 13:30; Stop 07/28/18 at 09:29 Insulin Human NPH (Humulin N) 14 unit DAILY@0900 SC ; Start 07/28/18 at 09:00 Assessment/Plan Hospital Course (Demo Recall) 1. Permanent pacemaker with proper function at this time, primarily AV pacing. No signs of dysfunction at this time - with good fxn now. Paced at times. Stable. 2. History of paroxysmal atrial fibrillation and atrial flutter, had been off anticoagulation due to severe thrombocytopenia, has been started on anticoagu lation, which was stopped at this time due to severe thrombocytopenia. Off anti- coag now. Plts higher. No active bleeding now - plt improved. 3. Hypertension - well controlled. Controlled - will follow clinically. 4. Dyslipidemia. 5. History of aortic valve replacement, bioprosthesis in 06/2017- stable by exam. Stable. 6. History of coronary artery disease, status post coronary artery bypass graft surgery in 06/2017 using AHUJA to LAD. On meds. 7. 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 8. Diabetes mellitus. 9. Dysphagia, status post G-tube. On feeds - at goal. 10. Chronic respiratory failure, status post tracheostomy- con;t resp Rx. REGINA TOMAS MD Jul 27, 2018 14:18
--- NOTE | 2018-07-27 15:41 | CONS ---
Consult Date/Type/Reason Admit Date/Time Jul 19, 2018 at 18:40 Initial Consult Date 07/24/18 Type of Consultation: Pulm Requesting Provider: LES TRENT Date/Time of Note DATE: 07/27/18 TIME: 15:39 Subjective Episodic dyspnea noted. Objective Vitals Vital Signs Date Temp Pulse Resp B/P (MAP) Pulse Ox O2 O2 Flow FiO2 Time Delivery Rate 07/27/18 63 14 95 30 13:27 07/27/18 98.0 121/61 11:51 (81) 07/27/18 Mechanical 00:00 Ventilator Intake and Output 07/26/18 07/26/18 07/27/18 1515:00 23:00 07:00 IntakeIntake Total 1230 ml 1230 ml BalanceBalance 1230 ml 1230 ml Exam NECK: Supple. Trach site is clean and intact. CARDIAC: S1, S2. No added sounds or murmurs. CHEST: Diminished air entry bilaterally. ABDOMEN: Soft, nontender. No guarding or rebound. EXTREMITIES: No cyanosis, clubbing or edema. NEUROLOGIC: Generalized weakness. Results/Medications Result Diagram: 07/26/18 0603 07/26/18 0603 Results 24 hrs Laboratory Tests Test 07/26/18 16:19 07/26/18 20:36 07/26/18 23:56 07/27/18 05:50 Bedside Glucose 237 H 292 H 295 H 289 H Test 07/27/18 08:54 07/27/18 13:19 Bedside Glucose 301 H 254 H Home Meds Reported Medications Tramadol HCl (Tramadol HCl) 50 Mg Tablet, 50 MG PO Q6H PRN for PAIN LEVEL 7-10, #120 TAB 06/23/18 Hydralazine Hcl* (Hydralazine Hcl*) 50 Mg Tab, 50 MG PO Q8 for hypertension, #90 TAB 06/23/18 Gabapentin* (Neurontin*) 400 Mg Capsule, 400 MG PO Q8, #90 CAP 06/23/18 Insulin Isophan/Regular (Humulin 70/30) 100 Units/Ml Susp, 18 UNIT SC Q8, EA 06/23/18 Omeprazole* (Omeprazole*) 40 Mg Capsule.dr, 40 MG PO DAILY, #30 CAP 06/23/18 Metoprolol Tartrate* (Lopressor*) 50 Mg Tab, 50 MG PO Q8, #60 TAB 06/23/18 Atorvastatin Calcium* (Atorvastatin Calcium*) 20 Mg Tablet, 20 MG PO QHS, #30 TAB 06/23/18 Ondansetron Hcl* (Ondansetron Hcl*) 4 Mg Tablet, 4 MG PO Q4H PRN for NAUSEA AND OR VOMITING, TAB 11/11/17 Budesonide-Formoterol Fumarate* (Symbicort*) 160-4.5 Hfa.aer.ad, 1 PUFF INHALATION BID, #1 EACH 11/11/17 Sennosides* (Senna Lax*) 8.6 Mg Tablet, 1 TAB PO BID, TAB 11/11/17 Multivitamins* (Theragran*) 1 Tab Tab, 1 TAB PO DAILY, TAB 11/11/17 Isosorbide Dinitrate* (Isosorbide Dinitrate*) 10 Mg Tablet, 10 MG PO TID, TAB 11/11/17 Ascorbic Acid* (Vitamin C*) 500 Mg Capsule.sa, 500 MG PO DAILY, CAP 11/11/17 Pantoprazole* (Protonix*) 40 Mg Tablet.dr, 40 MG PO AC BREAKFAST, TAB 08/07/17 Apixaban* (Eliquis*) 5 Mg Tablet, 5 MG PO BID, TAB 08/07/17 Nitroglycerin* (Nitrostat*) 0.4 Mg Tab.subl, 0.4 MG SL Q5MIN PRN for CHEST PAIN, BOTTLE 05/19/17 Duloxetine Hcl* (Cymbalta*) 30 Mg Capsule.dr, 30 MG PO DAILY, CAP 05/19/17 Acetaminophen* (Acetaminophen*) 650 Mg Tablet, 650 MG PO Q6H PRN for MILD TO MODERATE PAIN, #30 TAB 03/18/17 Alprazolam* (Alprazolam*) 0.25 Mg Tablet, 0.25 MG PO TID PRN for ANXIETY, TAB 03/18/17 Ferrous Sulfate* (Ferrous Sulfate*) 325 Mg Tabec, 325 MG PO DAILY, TAB 03/18/17 Medications Current Medications IV Flush (NS 3 ml) 3 ml PER PROTOCOL IV ; Start 07/19/18 at 19:30 Ondansetron HCl (Zofran Inj) 4 mg Q6H PRN IV NAUSEA/VOMITING; Start 07/19/18 at 19:30 Morphine Sulfate (morphine) 2 mg Q4H PRN IV .PAIN 8-10 Last administered on 07/26/18at 22:58; Admin Dose 2 MG; Start 07/19/18 at 19:30 Ferrous Sulfate (Ferrous Sulfate (Ec)) 325 mg DAILY PO Last administered on 07/26/18 09:19; Admin Dose 325 MG; Start 07/20/18 at 09:00; Stop 08/19/18 at 08:59 Nitroglycerin (Nitroglycerin (Sl Tab) 0.4 Mg) 1 tab [id number] PRN SL CHEST PAIN; Start 07/19/18 at 19:30 Miscellaneous Information (Pending [facility] Order For Wound Care) This patient pedro... PRN PRN XX WOUND CARE; Start 07/20/18 at 01:30 Insulin Aspart (Novolog Insulin Pen) NOVOLOG *MODERATE* ALGORI... Q4 SC Last administered on 07/27/18 13:28; Admin Dose 6 UNIT; Start 07/20/18 at 17:00 Lorazepam (Ativan) 0.5 mg Q6 PRN IV AGITATION/ANXIETY Last administered on 07/26/18at 14:26; Admin Dose 0.5 MG; Start 07/22/18 at 17:00 Lansoprazole (Prevacid) 30 mg DAILY@06 GTB Last administered on 07/27/18at 05:50; Admin Dose 30 MG; Start 07/25/18 at 06:00 Insulin Glargine (Lantus) 16 units BID SC Last administered on 07/27/18at 09:02; Admin Dose 16 UNITS; Start 07/26/18 at 21:00 Acetaminophen (Tylenol Tab) 650 mg Q6H PRN GTB .PAIN 1-3 OR TEMP; Start 07/27/18 at 09:00 Acetaminophen (Tylenol Tab) 650 mg Q6H PRN GTB MILD TO MODERATE PAIN; Start 07/27/18 at 09:00 Ascorbic Acid (Vitamin C) 500 mg DAILY GTB Last administered on 07/27/18 09:38; Admin Dose 500 MG; Start 07/27/18 at 09:00 Atorvastatin Calcium (Lipitor) 20 mg QHS GTB ; Start 07/27/18 at 21:00 Duloxetine HCl (Cymbalta) 30 mg DAILY GTB Last administered on 07/27/18 09:38; Admin Dose 30 MG; Start 07/27/18 at 09:00 Gabapentin (Neurontin) 400 mg Q8 GTB Last administered on 07/27/18 13:20; Admin Dose 400 MG; Start 07/27/18 at 14:00 Hydralazine HCl (Apresoline) 50 mg Q8 GTB Last administered on 07/27/18 13:20; Admin Dose 50 MG; Start 07/27/18 at 14:00 Isosorbide Dinitrate (Isordil) 10 mg TID GTB Last administered on 07/27/18 13:20; Admin Dose 10 MG; Start 07/27/18 at 09:00 Metoprolol Tartrate (Lopressor) 50 mg Q8 GTB Last administered on 07/27/18 13:20; Admin Dose 50 MG; Start 07/27/18 at 14:00 Multivitamins (Multivitamin) 30 ml DAILY GTB Last administered on 07/27/18at 09:40; Admin Dose 30 ML; Start 07/27/18 at 09:00 Ondansetron HCl (Zofran Tab) 4 mg Q4H PRN GTB NAUSEA AND/OR VOMITING; Start at 09:00 Senna (Senokot) 1 tab BID GTB Last administered on 07/27/18at 09:37; Admin Dose 1 TAB; Start 07/27/18 at 09:00 Tramadol HCl (Ultram) 50 mg Q6H PRN GTB PAIN LEVEL 4-7; Start 07/27/18 at 09:00 Miscellaneous Information 1 ea NOTE XX ; Start 07/27/18 at 09:00 Glucose (Glutose) 15 gm Q15M PRN PO DECREASED GLUCOSE; Start 07/27/18 at 09:00 Glucose (Glutose) 22.5 gm Q15M PRN PO DECREASED GLUCOSE; Start 07/27/18 at 09:00 Dextrose (D50w Syringe) 25 ml Q15M PRN IV DECREASED GLUCOSE; Start 07/27/18 at 09:00 Dextrose (D50w Syringe) 50 ml Q15M PRN IV DECREASED GLUCOSE; Start 07/27/18 at 09:00 Glucagon (Glucagen) 1 mg Q15M PRN IM DECREASED GLUCOSE; Start 07/27/18 at 09:00 Glucose (Glutose) 15 gm Q15M PRN BUCCAL DECREASED GLUCOSE; Start 07/27/18 at 09:00 Prednisone (Prednisone) 40 mg DAILY GTB ; Start 07/28/18 at 09:00 Sodium Chloride 1,000 ml @ 50 mls/hr Q20H IV Last administered on 07/27/18at 13:46; Admin Dose 50 MLS/HR; Start 07/27/18 at 13:30; Stop 07/28/18 at 09:29 Insulin Human NPH (Humulin N) 14 unit DAILY@0900 SC ; Start 07/28/18 at 09:00 Assessment/Plan Assessment/Plan (Daily) IMP: 1. Ventilator-dependent respiratory failure. 2. 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 3. Dysphagia with G-tube. 4. Anemia no active GI bleeding 5. s/p pacer RECS: 1. Vent support 2. BDs/CPT 3. TF/Free H20 4. Am CXR UTE GOODE MD Jul 27, 2018 15:41
[2018-07-27] MEDS: LORAZEPAM 2 MG INJ IV PRN (16:02)
[2018-07-27] MEDS: ATORVASTATIN 20 MG TAB GTB SCH (20:51)
[2018-07-28] VITALS (22 sets, daily range): BP systolic 109–158; BP diastolic 58–76; PULSE 58–61; RESP 14–28
[2018-07-28] MEDS: LORAZEPAM 2 MG INJ IV PRN ×3 (00:50→20:15)
[2018-07-28] MEDS: INSULIN ASPART [NOVOLOG] 3 ML PEN SC SCH ×6 (00:54→20:25)
[2018-07-28] MEDS: LANSOPRAZOLE 30 MG CAP GTB SCH (06:14)
[2018-07-28] MEDS: GABAPENTIN 400 MG CAP GTB SCH ×3 (06:14→21:44)
[2018-07-28] MEDS: METOPROLOL 50 MG TAB GTB SCH ×3 (06:15→21:44)
[2018-07-28] MEDS: morphine 2 MG INJ IV PRN ×2 (06:20→23:03)
[2018-07-28] MEDS: ASCORBIC ACID 500 MG TAB GTB SCH (08:46)
[2018-07-28] MEDS: MULTIVITAMINS 30 ML CUP GTB SCH (08:46)
[2018-07-28] MEDS: predniSONE 20 MG TAB GTB SCH (08:46)
[2018-07-28] MEDS: FERROUS SULFATE (EC) 325 MG TAB PO SCH (08:47)
[2018-07-28] MEDS: SENNA TAB GTB SCH ×2 (08:47→20:14)
[2018-07-28] MEDS: DULOXETINE 30 MG CAP DR GTB SCH (08:47)
[2018-07-28] MEDS: ISOSORBIDE DINITRATE 10 MG TAB GTB SCH ×3 (08:47→20:14)
[2018-07-28] MEDS: INSULIN GLARGINE [LANTus] (100 UNITS/ML) SYG SC SCH ×2 (08:54→20:25)
[2018-07-28] MEDS ORDERED: NPH, HUMAN INSULIN ISOPHANE 3ML VIAL SC SCH (09:00)
--- NOTE | 2018-07-28 11:38 | CONS ---
Assessment/Plan Assessment/Plan Hospital Course (Demo Recall) IMPRESSION: 1. Permanent pacemaker with proper function at this time, primarily AV pacing. No signs of dysfunction at this time. 2. History of paroxysmal atrial fibrillation and atrial flutter, had been off anticoagulation due to severe thrombocytopenia, has been started on anticoagulation, which was stopped at this time due to severe thrombocytopenia. 3. Hypertension. 4. Dyslipidemia. 5. History of aortic valve replacement, bioprosthesis in 06/2017. 6. History of coronary artery disease, status post coronary artery bypass graft surgery in 06/2017 using AHUJA to LAD. 7. 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 8. Diabetes mellitus. 9. Dysphagia, status post G-tube. 10. Chronic respiratory failure, status post tracheostomy. Recc: -Tele -Continue BB/hydralazine -Continue isordil -Holding antiplatelet/anticoagulation secondary to severe thrombocytopenia -Continue statin -Follow volume status closely with significantly increased BUN -Continue steroids Consultation Date/Type/Reason Admit Date/Time Jul 19, 2018 at 18:40 Initial Consult Date 07/22/18 Type of Consult Cardiology Reason for Consultation cardiomyopathy Requesting Provider: LES TRENT Date/Time of Note DATE: 07/28/18 TIME: 11:35 Exam/Review of Systems Vital Signs Vitals Vital Signs Date Temp Pulse Resp B/P (MAP) Pulse Ox O2 O2 Flow FiO2 Time Delivery Rate 07/28/18 97.4 58 28 115/58 98 Trach 11:28 (77) Collar 07/28/18 30 09:15 Intake and Output 07/27/18 07/27/18 07/28/18 1515:00 23:00 07:00 IntakeIntake Total 1230 ml BalanceBalance 1230 ml Exam Exam Review of Systems: CONSTITUTIONAL: No fevers, chills. PULMONARY: trached CARDIOVASCULAR: No chest pain/palpitations GASTROINTESTINAL: No nausea/vomiting. GENITOURINARY: No hematuria/dysuria. MUSCULOSKELETAL: No myagias/arthalgias. PSYCHIATRIC: The patient denies depression. NEUROLOGIC: encephalopathic Constitutional: alert Psych: no complaints Head: normocephalic ENMT: mucosa pink and moist Neck: supple, jvd (9 cm water) Respiratory: diminished breath sounds (at bases/B) Cardiovascular: regular rate and rhythm Gastrointestinal: soft, non-tender Musculoskeletal: muscle weakness (mild generalized) Extremities: edema (none) Neurological: other (No focal deficits) Labs Result Diagram: 07/26/18 0603 07/26/18 0603 Results 24hrs Laboratory Tests Test 07/27/18 13:19 07/27/18 16:05 07/27/18 20:55 07/28/18 00:15 Bedside Glucose 254 H 264 H 260 H 265 H Test 07/28/18 04:45 07/28/18 08:46 Bedside Glucose 227 H 202 Medications Medications Current Medications IV Flush (NS 3 ml) 3 ml PER PROTOCOL IV ; Start 07/19/18 at 19:30 Ondansetron HCl (Zofran Inj) 4 mg Q6H PRN IV NAUSEA/VOMITING; Start 07/19/18 at 19:30 Morphine Sulfate (morphine) 2 mg Q4H PRN IV .PAIN 8-10 Last administered on 07/28/18at 06:20; Admin Dose 2 MG; Start 07/19/18 at 19:30 Ferrous Sulfate (Ferrous Sulfate (Ec)) 325 mg DAILY PO Last administered on 07/28/18at 08:47; Admin Dose 325 MG; Start 07/20/18 at 09:00; Stop 08/19/18 at 08:59 Nitroglycerin (Nitroglycerin (Sl Tab) 0.4 Mg) 1 tab [id number] PRN SL CHEST PAIN; Start 07/19/18 at 19:30 Miscellaneous Information (Pending [facility] Order For Wound Care) This patient pedro... PRN PRN XX WOUND CARE; Start 07/20/18 at 01:30 Insulin Aspart (Novolog Insulin Pen) NOVOLOG *MODERATE* ALGORI... Q4 SC Last administered on 07/28/18at 08:54; Admin Dose 4 UNIT; Start 07/20/18 at 17:00 Lorazepam (Ativan) 0.5 mg Q6 PRN IV AGITATION/ANXIETY Last administered on 07/28/18at 00:50; Admin Dose 0.5 MG; Start 07/22/18 at 17:00 Lansoprazole (Prevacid) 30 mg DAILY@06 GTB Last administered on 07/28/18at 06:14; Admin Dose 30 MG; Start 07/25/18 at 06:00 Insulin Glargine (Lantus) 16 units BID SC Last administered on 07/28/18 08:54; Admin Dose 16 UNITS; Start 07/26/18 at 21:00 Acetaminophen (Tylenol Tab) 650 mg Q6H PRN GTB .PAIN 1-3 OR TEMP; Start 07/27/18 at 09:00 Acetaminophen (Tylenol Tab) 650 mg Q6H PRN GTB MILD TO MODERATE PAIN; Start 07/27/18 at 09:00 Ascorbic Acid (Vitamin C) 500 mg DAILY GTB Last administered on 07/28/18 08: 46; Admin Dose 500 MG; Start 07/27/18 at 09:00 Atorvastatin Calcium (Lipitor) 20 mg QHS GTB Last administered on 07/27/18 20:51; Admin Dose 20 MG; Start 07/27/18 at 21:00 Duloxetine HCl (Cymbalta) 30 mg DAILY GTB Last administered on 07/28/18 08:47; Admin Dose 30 MG; Start 07/27/18 at 09:00 Gabapentin (Neurontin) 400 mg Q8 GTB Last administered on 07/28/18 06:14; Admin Dose 400 MG; Start 07/27/18 at 14:00 Hydralazine HCl (Apresoline) 50 mg Q8 GTB Last administered on 07/28/18 06:15; Admin Dose 50 MG; Start 07/27/18 at 14:00 Isosorbide Dinitrate (Isordil) 10 mg TID GTB Last administered on 07/28/18 08:47; Admin Dose 10 MG; Start 07/27/18 at 09:00 Metoprolol Tartrate (Lopressor) 50 mg Q8 GTB Last administered on 07/28/18 06:15; Admin Dose 50 MG; Start 07/27/18 at 14:00 Multivitamins (Multivitamin) 30 ml DAILY GTB Last administered on 07/28/18 08:46; Admin Dose 30 ML; Start 07/27/18 at 09:00 Ondansetron HCl (Zofran Tab) 4 mg Q4H PRN GTB NAUSEA AND/OR VOMITING; Start 07/27/18 at 09:00 Senna (Senokot) 1 tab BID GTB Last administered on 07/28/18 08:47; Admin Dose 1 TAB; Start 07/27/18 at 09:00 Tramadol HCl (Ultram) 50 mg Q6H PRN GTB PAIN LEVEL 4-7; Start 07/27/18 at 09:00 Miscellaneous Information 1 ea NOTE XX ; Start 07/27/18 at 09:00 Glucose (Glutose) 15 gm Q15M PRN PO DECREASED GLUCOSE; Start 07/27/18 at 09:00 Glucose (Glutose) 22.5 gm Q15M PRN PO DECREASED GLUCOSE; Start 07/27/18 at 09:00 Dextrose (D50w Syringe) 25 ml Q15M PRN IV DECREASED GLUCOSE; Start 07/27/18 at 09:00 Dextrose (D50w Syringe) 50 ml Q15M PRN IV DECREASED GLUCOSE; Start 07/27/18 at 09:00 Glucagon (Glucagen) 1 mg Q15M PRN IM DECREASED GLUCOSE; Start 07/27/18 at 09:00 Glucose (Glutose) 15 gm Q15M PRN BUCCAL DECREASED GLUCOSE; Start 07/27/18 at 09:00 Prednisone (Prednisone) 40 mg DAILY GTB Last administered on 07/28/18at 08:46; Admin Dose 40 MG; Start 07/28/18 at 09:00 Insulin Human NPH (Humulin N) 14 unit DAILY@0900 SC Last administered on 07/28/18at 11:11; Admin Dose 14 UNIT; Start 07/28/18 at 09:00 RODGER MIRELES Jul 28, 2018 11:38
--- NOTE | 2018-07-28 11:54 | CONS ---
Consult Date/Type/Reason Admit Date/Time Jul 19, 2018 at 18:40 Initial Consult Date 07/22/18 Type of Consult Pulmonary Requesting Provider: LES TRENT Date/Time of Note DATE: 07/28/18 TIME: 11:53 Subjective Patient comfortable. No respiratory distress. Objective Vital Signs Date Temp Pulse Resp B/P (MAP) Pulse Ox O2 O2 Flow FiO2 Time Delivery Rate 07/28/18 97.4 58 28 115/58 98 Trach 11:28 (77) Collar 07/28/18 30 09:15 Intake and Output 07/27/18 07/27/18 07/28/18 1414:59 22:59 06:59 IntakeIntake Total 1230 ml BalanceBalance 1230 ml Exam NECK: Supple. Trach site is clean and intact. CARDIAC: S1, S2. No added sounds or murmurs. CHEST: Diminished air entry bilaterally. ABDOMEN: Soft, nontender. No guarding or rebound. EXTREMITIES: No cyanosis, clubbing or edema. NEUROLOGIC: Generalized weakness. Vent Setting Ventilator Support Mode: AC Fraction of Inspired Oxygen pe: 30 Positive End Expiratory Pressu: 5.0 Results/Medications Result Diagram: 07/26/18 0603 07/26/18 0603 Results 24 hrs Laboratory Tests Test 07/27/18 13:19 07/27/18 16:05 07/27/18 20:55 07/28/18 00:15 Bedside Glucose 254 H 264 H 260 H 265 H Test 07/28/18 04:45 07/28/18 08:46 Bedside Glucose 227 H 202 Medications Current Medications IV Flush (NS 3 ml) 3 ml PER PROTOCOL IV ; Start 07/19/18 at 19:30 Ondansetron HCl (Zofran Inj) 4 mg Q6H PRN IV NAUSEA/VOMITING; Start 07/19/18 at 19:30 Morphine Sulfate (morphine) 2 mg Q4H PRN IV .PAIN 8-10 Last administered on 07/28/18at 06:20; Admin Dose 2 MG; Start 07/19/18 at 19:30 Ferrous Sulfate (Ferrous Sulfate (Ec)) 325 mg DAILY PO Last administered on 07/28/18at 08:47; Admin Dose 325 MG; Start 07/20/18 at 09:00; Stop 08/19/18 at 08:59 Nitroglycerin (Nitroglycerin (Sl Tab) 0.4 Mg) 1 tab [id number] PRN SL CHEST PAIN; Start 07/19/18 at 19:30 Miscellaneous Information (Pending Santyl Order For Wound Care) This patient pedro... PRN PRN XX WOUND CARE; Start 07/20/18 at 01:30 Insulin Aspart (Novolog Insulin Pen) NOVOLOG *MODERATE* ALGORI... Q4 SC Last administered on 07/28/18 08:54; Admin Dose 4 UNIT; Start 07/20/18 at 17:00 Lorazepam (Ativan) 0.5 mg Q6 PRN IV AGITATION/ANXIETY Last administered on 07/28/18at 00:50; Admin Dose 0.5 MG; Start 07/22/18 at 17:00 Lansoprazole (Prevacid) 30 mg DAILY@06 GTB Last administered on 07/28/18 06:14; Admin Dose 30 MG; Start 07/25/18 at 06:00 Insulin Glargine (Lantus) 16 units BID SC Last administered on 07/28/18 08:54; Admin Dose 16 UNITS; Start 07/26/18 at 21:00 Acetaminophen (Tylenol Tab) 650 mg Q6H PRN GTB .PAIN 1-3 OR TEMP; Start 07/27/18 at 09:00 Acetaminophen (Tylenol Tab) 650 mg Q6H PRN GTB MILD TO MODERATE PAIN; Start 07/27/18 at 09:00 Ascorbic Acid (Vitamin C) 500 mg DAILY GTB Last administered on 07/28/18 08:46; Admin Dose 500 MG; Start 07/27/18 at 09:00 Atorvastatin Calcium (Lipitor) 20 mg QHS GTB Last administered on 07/27/18at 20:51; Admin Dose 20 MG; Start 07/27/18 at 21:00 Duloxetine HCl (Cymbalta) 30 mg DAILY GTB Last administered on 07/28/18 08:47; Admin Dose 30 MG; Start 07/27/18 at 09:00 Gabapentin (Neurontin) 400 mg Q8 GTB Last administered on 07/28/18 06:14; Admin Dose 400 MG; Start 07/27/18 at 14:00 Hydralazine HCl (Apresoline) 50 mg Q8 GTB Last administered on 4/29/19at 06:15; Admin Dose 50 MG; Start 07/27/18 at 14:00 Isosorbide Dinitrate (Isordil) 10 mg TID GTB Last administered on 07/28/18at 08:47; Admin Dose 10 MG; Start 07/27/18 at 09:00 Metoprolol Tartrate (Lopressor) 50 mg Q8 GTB Last administered on 07/28/18at 06:15; Admin Dose 50 MG; Start 07/27/18 at 14:00 Multivitamins (Multivitamin) 30 ml DAILY GTB Last administered on 07/28/18at 08:46; Admin Dose 30 ML; Start 07/27/18 at 09:00 Ondansetron HCl (Zofran Tab) 4 mg Q4H PRN GTB NAUSEA AND/OR VOMITING; Start 07/27/18 at 09:00 Senna (Senokot) 1 tab BID GTB Last administered on 07/28/18at 08:47; Admin Dose 1 TAB; Start 07/27/18 at 09:00 Tramadol HCl (Ultram) 50 mg Q6H PRN GTB PAIN LEVEL 4-7; Start 07/27/18 at 09:00 Miscellaneous Information 1 ea NOTE XX ; Start 07/27/18 at 09:00 Glucose (Glutose) 15 gm Q15M PRN PO DECREASED GLUCOSE; Start 07/27/18 at 09:00 Glucose (Glutose) 22.5 gm Q15M PRN PO DECREASED GLUCOSE; Start 07/27/18 at 09:00 Dextrose (D50w Syringe) 25 ml Q15M PRN IV DECREASED GLUCOSE; Start 07/27/18 at 09:00 Dextrose (D50w Syringe) 50 ml Q15M PRN IV DECREASED GLUCOSE; Start 07/27/18 at 09:00 Glucagon (Glucagen) 1 mg Q15M PRN IM DECREASED GLUCOSE; Start 07/27/18 at 09:00 Glucose (Glutose) 15 gm Q15M PRN BUCCAL DECREASED GLUCOSE; Start 07/27/18 at 09:00 Prednisone (Prednisone) 40 mg DAILY GTB Last administered on 07/28/18at 08:46; Admin Dose 40 MG; Start 07/28/18 at 09:00 Insulin Human NPH (Humulin N) 14 unit DAILY@0900 SC Last administered on 07/28/18at 11:11; Admin Dose 14 UNIT; Start 07/28/18 at 09:00 Assessment/Plan Hospital Course (Demo Recall) IMPRESSION AND PLAN: 1. Ventilator-dependent respiratory failure.Moderate right pleural effusion. 2. 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 3. Dysphagia with G-tube. 4. Anemia no active GI bleeding PLAN: 1. Continue hematology oncology recommendations for thrombocytopenia. 2. Continue vent support. Right thoracentesis following CBC and platelet count adequate. 3. Tube feeding as tolerated. 4. Cardiac recommendations. AMOS CLEMENTS MD, [facility] Jul 28, 2018 11:54
--- NOTE | 2018-07-28 13:45 | CONS ---
Assessment/Plan Assessment/Plan Hospital Course (Demo Recall) #ITP -diagnosed during the last admission, he had response to steroids and bone marrow bx consistent with peripheral destruction -past labs reveal + TERESE, negative HIT ab -given his platelet count of only 3K , he was started on Dexamethasone 40mg IV x 4 days to be followed by a slow prednisone steroid taper, as dex completed transitioned to Prednisone 1mg/kg daily with slow taper. plt count at 47K, today CBC ordered and pending continue rednisone 80 mg daily (started on saturday), will taper slowly as plt count allows -has been given IVIG 40 grams x 2 days -if patient does not respond will need to consider a course of Rituxan therapy, or other tx such as promacta or n plate Consultation Date/Type/Reason Admit Date/Time Jul 19, 2018 at 18:40 Initial Consult Date 07/22/18 Requesting Provider: LES TRENT Date/Time of Note DATE: 07/28/18 TIME: 13:45 24 HR Interval Summary Free Text/Dictation no new events, plt increased Exam/Review of Systems Exam Vitals Vital Signs Date Temp Pulse Resp B/P (MAP) Pulse Ox O2 O2 Flow FiO2 Time Delivery Rate 07/28/18 61 23 98 30 13:00 07/28/18 97.4 115/58 Trach 11:28 (77) Collar Intake and Output 07/27/18 07/27/18 07/28/18 1515:00 23:00 07:00 IntakeIntake Total 1230 ml BalanceBalance 1230 ml Constitutional: frail Results Result Diagram: 07/26/18 0603 07/26/18 0603 Results 24hrs Laboratory Tests Test 07/27/18 16:05 07/27/18 20:55 07/28/18 00:15 07/28/18 04:45 Bedside Glucose 264 H 260 H 265 H 227 H Test 07/28/18 08:46 07/28/18 13:06 Bedside Glucose 202 239 H Medications Medication Current Medications IV Flush (NS 3 ml) 3 ml PER PROTOCOL IV ; Start 07/19/18 at 19:30 Ondansetron HCl (Zofran Inj) 4 mg Q6H PRN IV NAUSEA/VOMITING; Start 07/19/18 at 19:30 Morphine Sulfate (morphine) 2 mg Q4H PRN IV .PAIN 8-10 Last administered on 07/28/18 06:20; Admin Dose 2 MG; Start 07/19/18 at 19:30 Ferrous Sulfate (Ferrous Sulfate (Ec)) 325 mg DAILY PO Last administered on 07/28/18 08:47; Admin Dose 325 MG; Start 07/20/18 at 09:00; Stop 08/19/18 at 08:59 Nitroglycerin (Nitroglycerin (Sl Tab) 0.4 Mg) 1 tab [id number] PRN SL CHEST PAIN; Start 07/19/18 at 19:30 Miscellaneous Information (Pending Santyl Order For Wound Care) This patient pedro... PRN PRN XX WOUND CARE; Start 07/20/18 at 01:30 Insulin Aspart (Novolog Insulin Pen) NOVOLOG *MODERATE* ALGORI... Q4 SC Last administered on 07/28/18 13:14; Admin Dose 6 UNIT; Start 07/20/18 at 17:00 Lorazepam (Ativan) 0.5 mg Q6 PRN IV AGITATION/ANXIETY Last administered on 07/28/18 00:50; Admin Dose 0.5 MG; Start 07/22/18 at 17:00 Lansoprazole (Prevacid) 30 mg DAILY@06 GTB Last administered on 07/28/18 06:14; Admin Dose 30 MG; Start 07/25/18 at 06:00 Insulin Glargine (Lantus) 16 units BID SC Last administered on 07/28/18 08:54; Admin Dose 16 UNITS; Start 07/26/18 at 21:00 Acetaminophen (Tylenol Tab) 650 mg Q6H PRN GTB .PAIN 1-3 OR TEMP; Start 07/27/18 at 09:00 Acetaminophen (Tylenol Tab) 650 mg Q6H PRN GTB MILD TO MODERATE PAIN; Start 07/27/18 at 09:00 Ascorbic Acid (Vitamin C) 500 mg DAILY GTB Last administered on 07/28/18 08:46; Admin Dose 500 MG; Start 07/27/18 at 09:00 Atorvastatin Calcium (Lipitor) 20 mg QHS GTB Last administered on 07/27/18 20:51; Admin Dose 20 MG; Start 07/27/18 at 21:00 Duloxetine HCl (Cymbalta) 30 mg DAILY GTB Last administered on 07/28/18 08:47; Admin Dose 30 MG; Start 07/27/18 at 09:00 Gabapentin (Neurontin) 400 mg Q8 GTB Last administered on 07/28/18 13:07; Admin Dose 400 MG; Start 07/27/18 at 14:00 Hydralazine HCl (Apresoline) 50 mg Q8 GTB Last administered on 07/28/18 13:07; Admin Dose 50 MG; Start 07/27/18 at 14:00 Isosorbide Dinitrate (Isordil) 10 mg TID GTB Last administered on 07/28/18 13:07; Admin Dose 10 MG; Start 07/27/18 at 09:00 Metoprolol Tartrate (Lopressor) 50 mg Q8 GTB Last administered on 07/28/18 13:07; Admin Dose 50 MG; Start 07/27/18 at 14:00 Multivitamins (Multivitamin) 30 ml DAILY GTB Last administered on 07/28/18 08:46; Admin Dose 30 ML; Start 07/27/18 at 09:00 Ondansetron HCl (Zofran Tab) 4 mg Q4H PRN GTB NAUSEA AND/OR VOMITING; Start 07/27/18 at 09:00 Senna (Senokot) 1 tab BID GTB Last administered on 07/28/18 08:47; Admin Dose 1 TAB; Start 07/27/18 at 09:00 Tramadol HCl (Ultram) 50 mg Q6H PRN GTB PAIN LEVEL 4-7; Start 07/27/18 at 09:00 Miscellaneous Information 1 ea NOTE XX ; Start 07/27/18 at 09:00 Glucose (Glutose) 15 gm Q15M PRN PO DECREASED GLUCOSE; Start 07/27/18 at 09:00 Glucose (Glutose) 22.5 gm Q15M PRN PO DECREASED GLUCOSE; Start 07/27/18 at 09:00 Dextrose (D50w Syringe) 25 ml Q15M PRN IV DECREASED GLUCOSE; Start 07/27/18 at 09:00 Dextrose (D50w Syringe) 50 ml Q15M PRN IV DECREASED GLUCOSE; Start 07/27/18 at 09:00 Glucagon (Glucagen) 1 mg Q15M PRN IM DECREASED GLUCOSE; Start 07/27/18 at 09:00 Glucose (Glutose) 15 gm Q15M PRN BUCCAL DECREASED GLUCOSE; Start 07/27/18 at 09:00 Prednisone (Prednisone) 40 mg DAILY GTB Last administered on 07/28/18at 08:46; Admin Dose 40 MG; Start 07/28/18 at 09:00 Insulin Human NPH (Humulin N) 14 unit DAILY@0900 SC Last administered on 07/28/18at 11:11; Admin Dose 14 UNIT; Start 07/28/18 at 09:00 BART MONTOYA Jul 28, 2018 13:45
--- NOTE | 2018-07-28 15:46 | CONS ---
Assessment/Plan Assessment/Plan Assessment/Plan (Daily) 1. Uremia with BUN rising to 100, Cr normal 3. ITP 4. severe thrombocytopenia 5. accelerated HTN 6. VDRF s/p Tracheostomy 7. Dysphagia S/p G tube Plan: Continue Hydralazine 50mg PO Q8 hr and MTP 50mg pO Q 8 hr BUN rising to 100, Cr 1.01, HCo3 33, decrease prednisone to 40mg NGTube daily,m plan is to taper it next 2-3 days IVF NS at 50 cc/hr x 1 liter then stop will follow up Consultation Date/Type/Reason Admit Date/Time Jul 19, 2018 at 18:40 Initial Consult Date 07/22/18 Type of Consult NEPHROLOGY Requesting Provider: LES TRENT Date/Time of Note DATE: 07/28/18 TIME: 15:46 Exam/Review of Systems Exam Vitals Vital Signs Date Temp Pulse Resp B/P (MAP) Pulse Ox O2 O2 Flow FiO2 Time Delivery Rate 07/28/18 97.6 60 14 136/75 96 Trach 15:44 (95) Collar 07/28/18 30 13:00 Intake and Output 07/27/18 07/27/18 07/28/18 1515:00 23:00 07:00 IntakeIntake Total 1230 ml BalanceBalance 1230 ml Results Result Diagram: 07/28/18 1356 07/26/18 0603 Results 24hrs Laboratory Tests Test 07/27/18 16:05 07/27/18 20:55 07/28/18 00:15 07/28/18 04:45 Bedside Glucose 264 H 260 H 265 H 227 H Test 07/28/18 08:46 07/28/18 13:06 07/28/18 13:56 Bedside Glucose 202 239 H White Blood Count 9.5 # Red Blood Count 3.16 L Hemoglobin 8.6 L Hematocrit 27.7 L Mean Corpuscular 87.7 Volume Mean Corpuscular 27.2 L Hemoglobin Mean Corpuscular 31.0 L Hemoglobin Concent Red Cell 18.6 H Distribution Width Platelet Count 47 #L Mean Platelet Volume Immature 2.200 H Granulocytes % Neutrophils % 86.4 H Lymphocytes % 8.1 L Monocytes % 3.0 Eosinophils % 0.0 Basophils % 0.3 Nucleated Red Blood 2.4 H Cells % Immature 0.210 H Granulocytes # Neutrophils # 8.2 H Lymphocytes # 0.8 Monocytes # 0.3 Eosinophils # 0.0 Basophils # 0.0 Nucleated Red Blood 0.2 H Cells # Medications Medication Current Medications IV Flush (NS 3 ml) 3 ml PER PROTOCOL IV ; Start 07/19/18 at 19:30 Ondansetron HCl (Zofran Inj) 4 mg Q6H PRN IV NAUSEA/VOMITING; Start 07/19/18 at 19:30 Morphine Sulfate (morphine) 2 mg Q4H PRN IV .PAIN 8-10 Last administered on 07/28/18at 06:20; Admin Dose 2 MG; Start 07/19/18 at 19:30 Ferrous Sulfate (Ferrous Sulfate (Ec)) 325 mg DAILY PO Last administered on 07/28/18at 08:47; Admin Dose 325 MG; Start 07/20/18 at 09:00; Stop 08/19/18 at 08:59 Nitroglycerin (Nitroglycerin (Sl Tab) 0.4 Mg) 1 tab [id number] PRN SL CHEST PAIN; Start 07/19/18 at 19:30 Miscellaneous Information (Pending [facility] Order For Wound Care) This patient pedro... PRN PRN XX WOUND CARE; Start 07/20/18 at 01:30 Insulin Aspart (Novolog Insulin Pen) NOVOLOG *MODERATE* ALGORI... Q4 SC Last administered on 07/28/18at 13:14; Admin Dose 6 UNIT; Start 07/20/18 at 17:00 Lorazepam (Ativan) 0.5 mg Q6 PRN IV AGITATION/ANXIETY Last administered on 07/28/18at 13:50; Admin Dose 0.5 MG; Start 07/22/18 at 17:00 Lansoprazole (Prevacid) 30 mg DAILY@06 GTB Last administered on 07/28/18at 06:14; Admin Dose 30 MG; Start 07/25/18 at 06:00 Insulin Glargine (Lantus) 16 units BID SC Last administered on 07/28/18at 08:54; Admin Dose 16 UNITS; Start 07/26/18 at 21:00 Acetaminophen (Tylenol Tab) 650 mg Q6H PRN GTB .PAIN 1-3 OR TEMP; Start 07/27/18 at 09:00 Acetaminophen (Tylenol Tab) 650 mg Q6H PRN GTB MILD TO MODERATE PAIN; Start 07/27/18 at 09:00 Ascorbic Acid (Vitamin C) 500 mg DAILY GTB Last administered on 07/28/18 08:46; Admin Dose 500 MG; Start 07/27/18 at 09:00 Atorvastatin Calcium (Lipitor) 20 mg QHS GTB Last administered on 07/27/18 20:51; Admin Dose 20 MG; Start 07/27/18 at 21:00 Duloxetine HCl (Cymbalta) 30 mg DAILY GTB Last administered on 07/28/18 08:47; Admin Dose 30 MG; Start 07/27/18 at 09:00 Gabapentin (Neurontin) 400 mg Q8 GTB Last administered on 07/28/18 13:07; Admin Dose 400 MG; Start 07/27/18 at 14:00 Hydralazine HCl (Apresoline) 50 mg Q8 GTB Last administered on 07/28/18 13:07; Admin Dose 50 MG; Start 07/27/18 at 14:00 Isosorbide Dinitrate (Isordil) 10 mg TID GTB Last administered on 07/28/18 13:07; Admin Dose 10 MG; Start 07/27/18 at 09:00 Metoprolol Tartrate (Lopressor) 50 mg Q8 GTB Last administered on 07/28/18 13:07; Admin Dose 50 MG; Start 07/27/18 at 14:00 Multivitamins (Multivitamin) 30 ml DAILY GTB Last administered on 07/28/18 08:46; Admin Dose 30 ML; Start 07/27/18 at 09:00 Ondansetron HCl (Zofran Tab) 4 mg Q4H PRN GTB NAUSEA AND/OR VOMITING; Start 07/27/18 at 09:00 Senna (Senokot) 1 tab BID GTB Last administered on 07/28/18 08:47; Admin Dose 1 TAB; Start 07/27/18 at 09:00 Tramadol HCl (Ultram) 50 mg Q6H PRN GTB PAIN LEVEL 4-7; Start 07/27/18 at 09:00 Miscellaneous Information 1 ea NOTE XX ; Start 07/27/18 at 09:00 Glucose (Glutose) 15 gm Q15M PRN PO DECREASED GLUCOSE; Start 07/27/18 at 09:00 Glucose (Glutose) 22.5 gm Q15M PRN PO DECREASED GLUCOSE; Start 07/27/18 at 09:00 Dextrose (D50w Syringe) 25 ml Q15M PRN IV DECREASED GLUCOSE; Start 07/27/18 at 09:00 Dextrose (D50w Syringe) 50 ml Q15M PRN IV DECREASED GLUCOSE; Start 07/27/18 at 09:00 Glucagon (Glucagen) 1 mg Q15M PRN IM DECREASED GLUCOSE; Start 07/27/18 at 09:00 Glucose (Glutose) 15 gm Q15M PRN BUCCAL DECREASED GLUCOSE; Start 07/27/18 at 09:00 Prednisone (Prednisone) 40 mg DAILY GTB Last administered on 07/28/18at 08:46; Admin Dose 40 MG; Start 07/28/18 at 09:00 Insulin Human NPH (Humulin N) 14 unit DAILY@0900 SC Last administered on 07/28/18at 11:11; Admin Dose 14 UNIT; Start 07/28/18 at 09:00 OCTAVIO BOX MD Jul 28, 2018 15:46
--- NOTE | 2018-07-28 17:08 | CONS ---
Assessment/Plan Assessment/Plan Problems: (1) Diabetes mellitus type 2 with complications Status: Chronic Comment: Sugars are still up. Please note that the steroid dosage was lowered by 1 of the other consultants from 80 down to 40. I am going to then adjust the insulin dose to try and cover bit better. 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 Consultation Date/Type/Reason Admit Date/Time Jul 19, 2018 at 18:40 Initial Consult Date 07/24/18 Type of Consult Endocrine Reason for Consultation Diabetes mellitus type II with steroid-induced hyperglycemia. ITP. Chronic respiratory failure with tracheostomy. Requesting Provider: LES TRENT Date/Time of Note DATE: 07/28/18 TIME: 17:06 24 HR Interval Summary Free Text/Dictation No changes Exam/Review of Systems Exam Vitals Vital Signs Date Temp Pulse Resp B/P (MAP) Pulse Ox O2 O2 Flow FiO2 Time Delivery Rate 07/28/18 97.6 60 14 136/75 96 Trach 15:44 (95) Collar 07/28/18 30 15:23 Intake and Output 07/27/18 07/27/18 07/28/18 1515:00 23:00 07:00 IntakeIntake Total 1230 ml BalanceBalance 1230 ml Exam No change in exam Results Result Diagram: 07/28/18 1356 07/26/18 0603 Results 24hrs Laboratory Tests Test 07/27/18 20:55 07/28/18 00:15 07/28/18 04:45 07/28/18 08:46 Bedside Glucose 260 H 265 H 227 H 202 Test 07/28/18 13:06 07/28/18 13:56 Bedside Glucose 239 H White Blood Count 9.5 # Red Blood Count 3.16 L Hemoglobin 8.6 L Hematocrit 27.7 L Mean Corpuscular 87.7 Volume Mean Corpuscular 27.2 L Hemoglobin Mean Corpuscular 31.0 L Hemoglobin Concent Red Cell 18.6 H Distribution Width Platelet Count 47 #L Mean Platelet Volume Immature 2.200 H Granulocytes % Neutrophils % 86.4 H Lymphocytes % 8.1 L Monocytes % 3.0 Eosinophils % 0.0 Basophils % 0.3 Nucleated Red Blood 2.4 H Cells % Immature 0.210 H Granulocytes # Neutrophils # 8.2 H Lymphocytes # 0.8 Monocytes # 0.3 Eosinophils # 0.0 Basophils # 0.0 Nucleated Red Blood 0.2 H Cells # Medications Medication Current Medications IV Flush (NS 3 ml) 3 ml PER PROTOCOL IV ; Start 07/19/18 at 19:30 Ondansetron HCl (Zofran Inj) 4 mg Q6H PRN IV NAUSEA/VOMITING; Start 07/19/18 at 19:30 Morphine Sulfate (morphine) 2 mg Q4H PRN IV .PAIN 8-10 Last administered on 07/28/18at 06:20; Admin Dose 2 MG; Start 07/19/18 at 19:30 Ferrous Sulfate (Ferrous Sulfate (Ec)) 325 mg DAILY PO Last administered on 07/28/18at 08:47; Admin Dose 325 MG; Start 07/20/18 at 09:00; Stop 08/19/18 at 08:59 Nitroglycerin (Nitroglycerin (Sl Tab) 0.4 Mg) 1 tab [id number] PRN SL CHEST PAIN; Start 07/19/18 at 19:30 Miscellaneous Information (Pending [facility] Order For Wound Care) This patient pedro... PRN PRN XX WOUND CARE; Start 07/20/18 at 01:30 Insulin Aspart (Novolog Insulin Pen) NOVOLOG *MODERATE* ALGORI... Q4 SC Last administered on 07/28/18at 13:14; Admin Dose 6 UNIT; Start 07/20/18 at 17:00 Lorazepam (Ativan) 0.5 mg Q6 PRN IV AGITATION/ANXIETY Last administered on 07/28/18at 13:50; Admin Dose 0.5 MG; Start 07/22/18 at 17:00 Lansoprazole (Prevacid) 30 mg DAILY@06 GTB Last administered on 07/28/18at 06:14; Admin Dose 30 MG; Start 07/25/18 at 06:00 Insulin Glargine (Lantus) 16 units BID SC Last administered on 07/28/18at 08:54; Admin Dose 16 UNITS; Start 07/26/18 at 21:00 Acetaminophen (Tylenol Tab) 650 mg Q6H PRN GTB .PAIN 1-3 OR TEMP; Start 07/27/18 at 09:00 Acetaminophen (Tylenol Tab) 650 mg Q6H PRN GTB MILD TO MODERATE PAIN; Start 07/27/18 at 09:00 Ascorbic Acid (Vitamin C) 500 mg DAILY GTB Last administered on 07/28/18 08:46; Admin Dose 500 MG; Start 07/27/18 at 09:00 Atorvastatin Calcium (Lipitor) 20 mg QHS GTB Last administered on 07/27/18 20:51; Admin Dose 20 MG; Start 07/27/18 at 21:00 Duloxetine HCl (Cymbalta) 30 mg DAILY GTB Last administered on 07/28/18 08:47; Admin Dose 30 MG; Start 07/27/18 at 09:00 Gabapentin (Neurontin) 400 mg Q8 GTB Last administered on 07/28/18 13:07; Admin Dose 400 MG; Start 07/27/18 at 14:00 Hydralazine HCl (Apresoline) 50 mg Q8 GTB Last administered on 07/28/18 13:07; Admin Dose 50 MG; Start 07/27/18 at 14:00 Isosorbide Dinitrate (Isordil) 10 mg TID GTB Last administered on 07/28/18 13 :07; Admin Dose 10 MG; Start 07/27/18 at 09:00 Metoprolol Tartrate (Lopressor) 50 mg Q8 GTB Last administered on 07/28/18 13:07; Admin Dose 50 MG; Start 07/27/18 at 14:00 Multivitamins (Multivitamin) 30 ml DAILY GTB Last administered on 07/28/18 08:46; Admin Dose 30 ML; Start 07/27/18 at 09:00 Ondansetron HCl (Zofran Tab) 4 mg Q4H PRN GTB NAUSEA AND/OR VOMITING; Start 07/27/18 at 09:00 Senna (Senokot) 1 tab BID GTB Last administered on 07/28/18 08:47; Admin Dose 1 TAB; Start 07/27/18 at 09:00 Tramadol HCl (Ultram) 50 mg Q6H PRN GTB PAIN LEVEL 4-7; Start 07/27/18 at 09:00 Miscellaneous Information 1 ea NOTE XX ; Start 07/27/18 at 09:00 Glucose (Glutose) 15 gm Q15M PRN PO DECREASED GLUCOSE; Start 07/27/18 at 09:00 Glucose (Glutose) 22.5 gm Q15M PRN PO DECREASED GLUCOSE; Start 07/27/18 at 09:00 Dextrose (D50w Syringe) 25 ml Q15M PRN IV DECREASED GLUCOSE; Start 07/27/18 at 09:00 Dextrose (D50w Syringe) 50 ml Q15M PRN IV DECREASED GLUCOSE; Start 07/27/18 at 09:00 Glucagon (Glucagen) 1 mg Q15M PRN IM DECREASED GLUCOSE; Start 07/27/18 at 09:00 Glucose (Glutose) 15 gm Q15M PRN BUCCAL DECREASED GLUCOSE; Start 07/27/18 at 09:00 Prednisone (Prednisone) 40 mg DAILY GTB Last administered on 07/28/18at 08:46; Admin Dose 40 MG; Start 07/28/18 at 09:00 Insulin Human NPH (Humulin N) 14 unit DAILY@0900 SC Last administered on 07/28/18at 11:11; Admin Dose 14 UNIT; Start 07/28/18 at 09:00 DORIAN ACOSTA MD Jul 28, 2018 17:08
[2018-07-28] MEDS ORDERED: INSULIN GLARGINE [LANTus] (100 UNITS/ML) SYG SC ONE (17:30)
[2018-07-28] MEDS: ATORVASTATIN 20 MG TAB GTB SCH (20:14)
[2018-07-29] VITALS (21 sets, daily range): BP systolic 93–148; BP diastolic 51–76; PULSE 59–68; RESP 14–24
[2018-07-29] MEDS: INSULIN ASPART [NOVOLOG] 3 ML PEN SC SCH ×6 (00:51→21:00)
[2018-07-29] MEDS: LORAZEPAM 2 MG INJ IV PRN (02:58)
[2018-07-29] MEDS: METOPROLOL 50 MG TAB GTB SCH ×3 (05:34→21:58)
[2018-07-29] MEDS: GABAPENTIN 400 MG CAP GTB SCH ×3 (05:34→21:57)
[2018-07-29] MEDS: LANSOPRAZOLE 30 MG CAP GTB SCH (05:34)
--- NOTE | 2018-07-29 06:16 | PN ---
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 Pt continued on Prednisone. - per hematology consultation. -VDRF with tracheostomy on 02/19/18. - per pulmonary - Azotemia - per nephro consult - monitor renal functions -Hx of Atrial fibrillation and atrial flutter. - unable to tolerate anticoagulation due to severe thrombocytopenia. 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 BS elevated - Continue Lantus and NovoLog. - per Endo consult -Anemia, monitor H&H. - Dysphagia -SP PEG placement on 02/19/18. -Colostomy -Bilateral BKA -Major depressive disorder -Hx of Stage III sacral decubitus ulcer Further recommendations based on clinical course. Plan of care discussed with Dr. Villatoro. Result Diagram: 07/28/18 1356 07/26/18 0603 Results 24hrs Laboratory Tests Test 07/28/18 08:46 07/28/18 13:06 07/28/18 13:56 07/28/18 16:49 Bedside Glucose 202 239 H White Blood Count 9.5 # Red Blood Count 3.16 L Hemoglobin 8.6 L Hematocrit 27.7 L Mean Corpuscular 87.7 Volume Mean Corpuscular 27.2 L Hemoglobin Mean Corpuscular 31.0 L Hemoglobin Concent Red Cell 18.6 H Distribution Width Platelet Count 47 #L Mean Platelet Volume Immature 2.200 H Granulocytes % Neutrophils % 86.4 H Lymphocytes % 8.1 L Monocytes % 3.0 Eosinophils % 0.0 Basophils % 0.3 Nucleated Red Blood 2.4 H Cells % Immature 0.210 H Granulocytes # Neutrophils # 8.2 H Lymphocytes # 0.8 Monocytes # 0.3 Eosinophils # 0.0 Basophils # 0.0 Nucleated Red Blood 0.2 H Cells # Prothrombin Time 15.6 H Prothrombin Time 1.2 Ratio INR International 1.23 Normalized Ratio Activated 27.1 Partial Thromboplast Time Test 07/28/18 17:16 07/28/18 20:13 07/29/18 00:47 07/29/18 04:40 Bedside Glucose 218 202 148 111 Subjective 24 Hr Interval Summary Free Text/Dictation - NAD - afebrile - VSS - lethargic - no new events reported last night Subjective hx not possible: pt non-verbal Constitutional: requiring IVF, requiring O2 Exam/Review of Systems Exam Vitals Vital Signs Date Temp Pulse Resp B/P (MAP) Pulse Ox O2 O2 Flow FiO2 Time Delivery Rate 07/29/18 60 04:47 07/29/18 97.9 18 122/60 96 04:00 (80) 07/29/18 35 03:02 07/28/18 Trach 15:44 Collar Intake and Output 07/28/18 07/28/18 07/29/18 1515:00 23:00 07:00 IntakeIntake Total 1230 ml 1230 ml BalanceBalance 1230 ml 1230 ml Constitutional: alert, non-verbal Psych: nl mood/affect Eyes: nl lids, nl sclera ENMT: nl external ears & nose Respiratory: clear to auscultation Cardiovascular: nl pulses, other (s1s2) Gastrointestinal: soft, other (gt/colostomy intact) Musculoskeletal: muscle weakness, range of motion Extremities: other (George BKA) Neurological: confused Results Results 24hrs Laboratory Tests Test 07/28/18 08:46 07/28/18 13:06 07/28/18 13:56 07/28/18 16:49 Bedside Glucose 202 239 H White Blood Count 9.5 # Red Blood Count 3.16 L Hemoglobin 8.6 L Hematocrit 27.7 L Mean Corpuscular 87.7 Volume Mean Corpuscular 27.2 L Hemoglobin Mean Corpuscular 31.0 L Hemoglobin Concent Red Cell 18.6 H Distribution Width Platelet Count 47 #L Mean Platelet Volume Immature 2.200 H Granulocytes % Neutrophils % 86.4 H Lymphocytes % 8.1 L Monocytes % 3.0 Eosinophils % 0.0 Basophils % 0.3 Nucleated Red Blood 2.4 H Cells % Immature 0.210 H Granulocytes # Neutrophils # 8.2 H Lymphocytes # 0.8 Monocytes # 0.3 Eosinophils # 0.0 Basophils # 0.0 Nucleated Red Blood 0.2 H Cells # Prothrombin Time 15.6 H Prothrombin Time 1.2 Ratio INR International 1.23 Normalized Ratio Activated 27.1 Partial Thromboplast Time Test 07/28/18 17:16 07/28/18 20:13 07/29/18 00:47 07/29/18 04:40 Bedside Glucose 218 202 148 111 Medications Medication Current Medications IV Flush (NS 3 ml) 3 ml PER PROTOCOL IV ; Start 07/19/18 at 19:30 Ondansetron HCl (Zofran Inj) 4 mg Q6H PRN IV NAUSEA/VOMITING; Start 07/19/18 at 19:30 Morphine Sulfate (morphine) 2 mg Q4H PRN IV .PAIN 8-10 Last administered on 07/28/18at 23:03; Admin Dose 2 MG; Start 07/19/18 at 19:30 Ferrous Sulfate (Ferrous Sulfate (Ec)) 325 mg DAILY PO Last administered on 07/28/18at 08:47; Admin Dose 325 MG; Start 07/20/18 at 09:00; Stop 08/19/18 at 08:59 Nitroglycerin (Nitroglycerin (Sl Tab) 0.4 Mg) 1 tab [id number] PRN SL CHEST PAIN; Start 07/19/18 at 19:30 Miscellaneous Information (Pending [facility] Order For Wound Care) This patient pedro... PRN PRN XX WOUND CARE; Start 07/20/18 at 01:30 Insulin Aspart (Novolog Insulin Pen) NOVOLOG *MODERATE* ALGORI... Q4 SC Last administered on 07/29/18at 00:51; Admin Dose 2 UNIT; Start 07/20/18 at 17:00 Lorazepam (Ativan) 0.5 mg Q6 PRN IV AGITATION/ANXIETY Last administered on 07/29/18at 02:58; Admin Dose 0.5 MG; Start 07/22/18 at 17:00 Lansoprazole (Prevacid) 30 mg DAILY@06 GTB Last administered on 07/29/18at 05:34; Admin Dose 30 MG; Start 07/25/18 at 06:00 Insulin Glargine (Lantus) 16 units BID SC Last administered on 07/28/18 20:25; Admin Dose 16 UNITS; Start 07/26/18 at 21:00 Acetaminophen (Tylenol Tab) 650 mg Q6H PRN GTB .PAIN 1-3 OR TEMP; Start 07/27/18 at 09:00 Acetaminophen (Tylenol Tab) 650 mg Q6H PRN GTB MILD TO MODERATE PAIN; Start 07/27/18 at 09:00 Ascorbic Acid (Vitamin C) 500 mg DAILY GTB Last administered on 07/28/18 08:46; Admin Dose 500 MG; Start 07/27/18 at 09:00 Atorvastatin Calcium (Lipitor) 20 mg QHS GTB Last administered on 07/28/18 20:14; Admin Dose 20 MG; Start 07/27/18 at 21:00 Duloxetine HCl (Cymbalta) 30 mg DAILY GTB Last administered on 07/28/18 08:47; Admin Dose 30 MG; Start 07/27/18 at 09:00 Gabapentin (Neurontin) 400 mg Q8 GTB Last administered on 07/29/18 05:34; Admin Dose 400 MG; Start 07/27/18 at 14:00 Hydralazine HCl (Apresoline) 50 mg Q8 GTB Last administered on 07/29/18 05:34; Admin Dose 50 MG; Start 07/27/18 at 14:00 Isosorbide Dinitrate (Isordil) 10 mg TID GTB Last administered on 07/28/18 20:14; Admin Dose 10 MG; Start 07/27/18 at 09:00 Metoprolol Tartrate (Lopressor) 50 mg Q8 GTB Last administered on 07/29/18 05:34; Admin Dose 50 MG; Start 07/27/18 at 14:00 Multivitamins (Multivitamin) 30 ml DAILY GTB Last administered on 07/28/18 08:46; Admin Dose 30 ML; Start 07/27/18 at 09:00 Ondansetron HCl (Zofran Tab) 4 mg Q4H PRN GTB NAUSEA AND/OR VOMITING; Start 07/27/18 at 09:00 Senna (Senokot) 1 tab BID GTB Last administered on 07/28/18 20:14; Admin Dose 1 TAB; Start 4/28/19 at 09:00 Tramadol HCl (Ultram) 50 mg Q6H PRN GTB PAIN LEVEL 4-7; Start 07/27/18 at 09:00 Miscellaneous Information 1 ea NOTE XX ; Start 07/27/18 at 09:00 Glucose (Glutose) 15 gm Q15M PRN PO DECREASED GLUCOSE; Start 07/27/18 at 09:00 Glucose (Glutose) 22.5 gm Q15M PRN PO DECREASED GLUCOSE; Start 07/27/18 at 09:00 Dextrose (D50w Syringe) 25 ml Q15M PRN IV DECREASED GLUCOSE; Start 07/27/18 at 09:00 Dextrose (D50w Syringe) 50 ml Q15M PRN IV DECREASED GLUCOSE; Start 07/27/18 at 09:00 Glucagon (Glucagen) 1 mg Q15M PRN IM DECREASED GLUCOSE; Start 07/27/18 at 09:00 Glucose (Glutose) 15 gm Q15M PRN BUCCAL DECREASED GLUCOSE; Start 07/27/18 at 09:00 Prednisone (Prednisone) 40 mg DAILY GTB Last administered on 07/28/18at 08:46; Admin Dose 40 MG; Start 07/28/18 at 09:00 Insulin Human NPH (Humulin N) 18 unit DAILY@0900 SC ; Start 07/29/18 at 09:00 LES TRENT Jul 29, 2018 06:16
[2018-07-29] MEDS: ASCORBIC ACID 500 MG TAB GTB SCH (08:27)
[2018-07-29] MEDS: DULOXETINE 30 MG CAP DR GTB SCH (08:27)
[2018-07-29] MEDS: predniSONE 20 MG TAB GTB SCH (08:28)
[2018-07-29] MEDS: ISOSORBIDE DINITRATE 10 MG TAB GTB SCH ×3 (08:28→21:57)
[2018-07-29] MEDS: MULTIVITAMINS 30 ML CUP GTB SCH (08:28)
[2018-07-29] MEDS: FERROUS SULFATE (EC) 325 MG TAB PO SCH (08:28)
[2018-07-29] MEDS: SENNA TAB GTB SCH ×2 (08:28→21:58)
[2018-07-29] MEDS: INSULIN GLARGINE [LANTus] (100 UNITS/ML) SYG SC SCH ×2 (08:35→22:03)
[2018-07-29] MEDS: NPH, HUMAN INSULIN ISOPHANE 3ML VIAL SC SCH (08:35)
--- NOTE | 2018-07-29 13:34 | CONS ---
Consult Date/Type/Reason Admit Date/Time Jul 19, 2018 at 18:40 Initial Consult Date Type of Consultation: Pulm Requesting Provider: LES TRENT Date/Time of Note DATE: 07/29/18 TIME: 13:31 Subjective No acute events - pt comfortable - paced now, will follow clinically ROS: No fever, no chills, no nausea, no vomiting, no diarrhea/constipation No recent weight changes No chest pain, no PND, no orthopnea - chronic SOB No dizziness, blurred vision No thirst, no heat or cold intolerance Objective Vitals Vital Signs Date Temp Pulse Resp B/P (MAP) Pulse Ox O2 O2 Flow FiO2 Time Delivery Rate 07/29/18 60 14 95 30 11:45 07/29/18 97.4 93/51 (65) 11:35 07/28/18 Trach 15:44 Collar Intake and Output 07/28/18 07/28/18 07/29/18 1414:59 22:59 06:59 IntakeIntake Total 1230 ml 1230 ml 1230 ml BalanceBalance 1230 ml 1230 ml 1230 ml Exam General: WN/WD/NAD, AOx 2-3 HEENT: Unicetric/atraumatic/EOMI (does not follow commands) NECK: JVD elevated, no thyromegaly Lymph: no lymphadenopathy HEART: regular with no S3, II/ systolic murmur at apex, pacer LUNGS: Coarse sounds ABD: soft, NT, ND, +BS : Intact Neuro: non focal SKIN: chronic changes EXT: amputated Results/Medications Result Diagram: 07/29/18 0610 07/29/18 0610 Results 24 hrs Laboratory Tests Test 07/28/18 13:56 07/28/18 16:49 07/28/18 17:16 07/28/18 20:13 White Blood Count 9.5 # Red Blood Count 3.16 L Hemoglobin 8.6 L Hematocrit 27.7 L Mean Corpuscular 87.7 Volume Mean Corpuscular 27.2 L Hemoglobin Mean Corpuscular 31.0 L Hemoglobin Concent Red Cell 18.6 H Distribution Width Platelet Count 47 #L Mean Platelet Volume Immature 2.200 H Granulocytes % Neutrophils % 86.4 H Lymphocytes % 8.1 L Monocytes % 3.0 Eosinophils % 0.0 Basophils % 0.3 Nucleated Red 2.4 H Blood Cells % Immature 0.210 H Granulocytes # Neutrophils # 8.2 H Lymphocytes # 0.8 Monocytes # 0.3 Eosinophils # 0.0 Basophils # 0.0 Nucleated Red 0.2 H Blood Cells # Prothrombin Time 15.6 H Prothrombin Time 1.2 Ratio INR International 1.23 Normalized Ratio Activated 27.[address] Time Bedside Glucose 218 202 Test 07/29/18 00:47 07/29/18 04:40 07/29/18 06:10 07/29/18 08:27 Bedside Glucose 148 111 133 White Blood Count 8.1 Red Blood Count 3.27 L Hemoglobin 8.9 L Hematocrit 28.1 L Mean Corpuscular 85.9 Volume Mean Corpuscular 27.2 L Hemoglobin Mean Corpuscular 31.7 L Hemoglobin Concent Red Cell 19.6 H Distribution Width Platelet Count 37 #L Mean Platelet 13.3 H Volume Immature 0.900 H Granulocytes % Neutrophils % Segmented 67 Neutrophils % (Manual) Band Neutrophils % 21 H (Manual) Lymphocytes % Lymphocytes % 11 L (Manual) Monocytes % Monocytes % 1 (Manual) Eosinophils % Basophils % Myelocytes % 1 H (Manual) Nucleated Red 2 H Blood Cells % Immature 0.070 H Granulocytes # Neutrophils # Neutrophils # 5.6 (Manual) Band Neutrophils # 1.7 H Lymphocytes 0.8 (Manual) Lymphocytes # Monocytes # Monocytes # 0.0 L (Manual) Eosinophils # Basophils # Myelocytes # 0.0 Nucleated Red Blood Cells # Platelet Estimate SIG DECREASED Giant Platelets 1 H Polychromasia 3+ Poikilocytosis 1+ Anisocytosis 3+ Microcytosis 3+ Tear Drop Cells 1+ Sodium Level 134 L Potassium Level 4.3 Chloride Level 94 L Carbon Dioxide 33 H Level Anion Gap 7 Blood Urea 96 H Nitrogen Creatinine 0.77 Est Glomerular > 60 Filtrat Rate mL/min Glucose Level 96 Calcium Level 8.5 Phosphorus Level 3.6 Magnesium Level 3.3 H Test 07/29/18 13:14 Bedside Glucose 156 Home Meds Reported Medications Tramadol HCl (Tramadol HCl) 50 Mg Tablet, 50 MG PO Q6H PRN for PAIN LEVEL 7-10, #120 TAB 06/23/18 Hydralazine Hcl* (Hydralazine Hcl*) 50 Mg Tab, 50 MG PO Q8 for hypertension, #90 TAB 06/23/18 Gabapentin* (Neurontin*) 400 Mg Capsule, 400 MG PO Q8, #90 CAP 06/23/18 Insulin Isophan/Regular (Humulin 70/30) 100 Units/Ml Susp, 18 UNIT SC Q8, EA 06/23/18 Omeprazole* (Omeprazole*) 40 Mg Capsule.dr, 40 MG PO DAILY, #30 CAP 06/23/18 Metoprolol Tartrate* (Lopressor*) 50 Mg Tab, 50 MG PO Q8, #60 TAB 06/23/18 Atorvastatin Calcium* (Atorvastatin Calcium*) 20 Mg Tablet, 20 MG PO QHS, #30 TAB 06/23/18 Ondansetron Hcl* (Ondansetron Hcl*) 4 Mg Tablet, 4 MG PO Q4H PRN for NAUSEA AND OR VOMITING, TAB 11/11/17 Budesonide-Formoterol Fumarate* (Symbicort*) 160-4.5 Hfa.aer.ad, 1 PUFF INHALATION BID, #1 EACH 11/11/17 Sennosides* (Senna Lax*) 8.6 Mg Tablet, 1 TAB PO BID, TAB 11/11/17 Multivitamins* (Theragran*) 1 Tab Tab, 1 TAB PO DAILY, TAB 11/11/17 Isosorbide Dinitrate* (Isosorbide Dinitrate*) 10 Mg Tablet, 10 MG PO TID, TAB 11/11/17 Ascorbic Acid* (Vitamin C*) 500 Mg Capsule.sa, 500 MG PO DAILY, CAP 11/11/17 Pantoprazole* (Protonix*) 40 Mg Tablet.dr, 40 MG PO AC BREAKFAST, TAB 08/07/17 Apixaban* (Eliquis*) 5 Mg Tablet, 5 MG PO BID, TAB 08/07/17 Nitroglycerin* (Nitrostat*) 0.4 Mg Tab.subl, 0.4 MG SL Q5MIN PRN for CHEST PAIN, BOTTLE 05/19/17 Duloxetine Hcl* (Cymbalta*) 30 Mg Capsule.dr, 30 MG PO DAILY, CAP 05/19/17 Acetaminophen* (Acetaminophen*) 650 Mg Tablet, 650 MG PO Q6H PRN for MILD TO MODERATE PAIN, #30 TAB 03/18/17 Alprazolam* (Alprazolam*) 0.25 Mg Tablet, 0.25 MG PO TID PRN for ANXIETY, TAB 03/18/17 Ferrous Sulfate* (Ferrous Sulfate*) 325 Mg Tabec, 325 MG PO DAILY, TAB 03/18/17 Medications Current Medications IV Flush (NS 3 ml) 3 ml PER PROTOCOL IV ; Start 07/19/18 at 19:30 Ondansetron HCl (Zofran Inj) 4 mg Q6H PRN IV NAUSEA/VOMITING; Start 07/19/18 at 19:30 Morphine Sulfate (morphine) 2 mg Q4H PRN IV .PAIN 8-10 Last administered on 07/28/18at 23:03; Admin Dose 2 MG; Start 07/19/18 at 19:30 Ferrous Sulfate (Ferrous Sulfate (Ec)) 325 mg DAILY PO Last administered on 07/29/18 08:28; Admin Dose 325 MG; Start 07/20/18 at 09:00; Stop 08/19/18 at 08:59 Nitroglycerin (Nitroglycerin (Sl Tab) 0.4 Mg) 1 tab [id number] PRN SL CHEST PAIN; Start 07/19/18 at 19:30 Miscellaneous Information ([facility] This patient pedro... PRN PRN XX WOUND CARE; Start 07/20/18 at 01:30 Insulin Aspart (Novolog Insulin Pen) NOVOLOG *MODERATE* ALGORI... Q4 SC Last administered on 07/29/18at 13:19; Admin Dose 2 UNIT; Start 07/20/18 at 17:00 Lorazepam (Ativan) 0.5 mg Q6 PRN IV AGITATION/ANXIETY Last administered on 07/29/18at 02:58; Admin Dose 0.5 MG; Start 07/22/18 at 17:00 Lansoprazole (Prevacid) 30 mg DAILY@06 GTB Last administered on 07/29/18at 0 5:34; Admin Dose 30 MG; Start 07/25/18 at 06:00 Insulin Glargine (Lantus) 16 units BID SC Last administered on 07/29/18at 08:35; Admin Dose 16 UNITS; Start 07/26/18 at 21:00 Acetaminophen (Tylenol Tab) 650 mg Q6H PRN GTB .PAIN 1-3 OR TEMP; Start 07/27/18 at 09:00 Acetaminophen (Tylenol Tab) 650 mg Q6H PRN GTB MILD TO MODERATE PAIN; Start 07/27/18 at 09:00 Ascorbic Acid (Vitamin C) 500 mg DAILY GTB Last administered on 07/29/18 08:27; Admin Dose 500 MG; Start 07/27/18 at 09:00 Atorvastatin Calcium (Lipitor) 20 mg QHS GTB Last administered on 07/28/18 20:14; Admin Dose 20 MG; Start 07/27/18 at 21:00 Duloxetine HCl (Cymbalta) 30 mg DAILY GTB Last administered on 07/29/18 08:27; Admin Dose 30 MG; Start 07/27/18 at 09:00 Gabapentin (Neurontin) 400 mg Q8 GTB Last administered on 07/29/18 13:13; Admin Dose 400 MG; Start 07/27/18 at 14:00 Hydralazine HCl (Apresoline) 50 mg Q8 GTB Last administered on 07/29/18 05:34; Admin Dose 50 MG; Start 07/27/18 at 14:00 Isosorbide Dinitrate (Isordil) 10 mg TID GTB Last administered on 07/29/18 08:28; Admin Dose 10 MG; Start 07/27/18 at 09:00 Metoprolol Tartrate (Lopressor) 50 mg Q8 GTB Last administered on 07/29/18 05:34; Admin Dose 50 MG; Start 07/27/18 at 14:00 Multivitamins (Multivitamin) 30 ml DAILY GTB Last administered on 07/29/18 08:28; Admin Dose 30 ML; Start 07/27/18 at 09:00 Ondansetron HCl (Zofran Tab) 4 mg Q4H PRN GTB NAUSEA AND/OR VOMITING; Start 07/27/18 at 09:00 Senna (Senokot) 1 tab BID GTB Last administered on 07/29/18 08:28; Admin Dose 1 TAB; Start 07/27/18 at 09:00 Tramadol HCl (Ultram) 50 mg Q6H PRN GTB PAIN LEVEL 4-7; Start 07/27/18 at 09:00 Miscellaneous Information 1 ea NOTE XX ; Start 07/27/18 at 09:00 Glucose (Glutose) 15 gm Q15M PRN PO DECREASED GLUCOSE; Start 07/27/18 at 09:00 Glucose (Glutose) 22.5 gm Q15M PRN PO DECREASED GLUCOSE; Start 07/27/18 at 09:00 Dextrose (D50w Syringe) 25 ml Q15M PRN IV DECREASED GLUCOSE; Start 07/27/18 at 09:00 Dextrose (D50w Syringe) 50 ml Q15M PRN IV DECREASED GLUCOSE; Start 07/27/18 at 09:00 Glucagon (Glucagen) 1 mg Q15M PRN IM DECREASED GLUCOSE; Start 07/27/18 at 09:00 Glucose (Glutose) 15 gm Q15M PRN BUCCAL DECREASED GLUCOSE; Start 07/27/18 at 0 9:00 Prednisone (Prednisone) 40 mg DAILY GTB Last administered on 07/29/18at 08:28; Admin Dose 40 MG; Start 07/28/18 at 09:00 Insulin Human NPH (Humulin N) 18 unit DAILY@0900 SC Last administered on 07/29/18at 08:35; Admin Dose 18 UNIT; Start 07/29/18 at 09:00 Assessment/Plan Hospital Course (Demo Recall) 1. Permanent pacemaker with proper function at this time, primarily AV pacing. No signs of dysfunction at this time - with good fxn now. Paced at times. Stabl e. Good fxn now. 2. History of paroxysmal atrial fibrillation and atrial flutter, had been off anticoagulation due to severe thrombocytopenia, has been started on anticoagulation, which was stopped at this time due to severe thrombocytopenia. Off anti-coag now. Plts higher. No active bleeding now - plt improved. NO bleeding now. 3. Hypertension - well controlled. Controlled - will follow clinically. 4. Dyslipidemia. 5. History of aortic valve replacement, bioprosthesis in 06/2017- stable by exam. Stable by exam - unchaged. 6. History of coronary artery disease, status post coronary artery bypass graft surgery in 06/2017 using AHUJA to LAD. On meds. 7. 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 8. Diabetes mellitus. 9. Dysphagia, status post G-tube. On feeds - at goal. 10. Chronic respiratory failure, status post tracheostomy- con;t resp Rx. REGINA TOMAS MD Jul 29, 2018 13:34
--- NOTE | 2018-07-29 13:47 | CONS ---
Assessment/Plan Assessment/Plan Hospital Course (Demo Recall) #ITP -platelets ok at 37 today -diagnosed during the last admission, he had response to steroids and bone marrow bx consistent with peripheral destruction -past labs reveal + TERESE, negative HIT ab -given his platelet count of only 3K , he was started on Dexamethasone 40mg IV x 4 days to be followed by a slow prednisone steroid taper, as dex completed transitioned to Prednisone 1mg/kg daily with slow taper. plt count at 47K, today CBC ordered and pending continue prednisone 80 mg daily (started on saturday), will taper slowly as plt count allows -has been given IVIG 40 grams x 2 days -if patient does not respond will need to consider a course of Rituxan therapy, or other tx such as promacta or n plate Consultation Date/Type/Reason Admit Date/Time Jul 19, 2018 at 18:40 Initial Consult Date 07/24/18 Type of Consult hematology Reason for Consultation ITP Requesting Provider: LES TRENT Date/Time of Note DATE: 07/29/18 TIME: 13:46 24 HR Interval Summary Free Text/Dictation no acute overnight events Exam/Review of Systems Exam Vitals Vital Signs Date Temp Pulse Resp B/P (MAP) Pulse Ox O2 O2 Flow FiO2 Time Delivery Rate 07/29/18 60 14 95 30 11:45 07/29/18 97.4 93/51 (65) 11:35 07/28/18 Trach 15:44 Collar Intake and Output 07/28/18 07/28/18 07/29/18 1515:00 23:00 07:00 IntakeIntake Total 1230 ml 1230 ml 1230 ml BalanceBalance 1230 ml 1230 ml 1230 ml Constitutional: alert, oriented Psych: no complaints Head: normocephalic Eyes: nl conjunctiva ENMT: nl external ears & nose Neck: supple Respiratory: clear to auscultation Cardiovascular: regular rate and rhythm Gastrointestinal: soft Musculoskeletal: nl extremities to inspection Extremities: normal pulses Results Result Diagram: 07/29/18 0610 07/29/18 0610 Results 24hrs Laboratory Tests Test 07/28/18 13:56 07/28/18 16:49 07/28/18 17:16 07/28/18 20:13 White Blood Count 9.5 # Red Blood Count 3.16 L Hemoglobin 8.6 L Hematocrit 27.7 L Mean Corpuscular 87.7 Volume Mean Corpuscular 27.2 L Hemoglobin Mean Corpuscular 31.0 L Hemoglobin Concent Red Cell 18.6 H Distribution Width Platelet Count 47 #L Mean Platelet Volume Immature 2.200 H Granulocytes % Neutrophils % 86.4 H Lymphocytes % 8.1 L Monocytes % 3.0 Eosinophils % 0.0 Basophils % 0.3 Nucleated Red 2.4 H Blood Cells % Immature 0.210 H Granulocytes # Neutrophils # 8.2 H Lymphocytes # 0.8 Monocytes # 0.3 Eosinophils # 0.0 Basophils # 0.0 Nucleated Red 0.2 H Blood Cells # Prothrombin Time 15.6 H Prothrombin Time 1.2 Ratio INR International 1.23 Normalized Ratio Activated 27.[address] Time Bedside Glucose 218 202 Test 07/29/18 00:47 07/29/18 04:40 07/29/18 06:10 07/29/18 08:27 Bedside Glucose 148 111 133 White Blood Count 8.1 Red Blood Count 3.27 L Hemoglobin 8.9 L Hematocrit 28.1 L Mean Corpuscular 85.9 Volume Mean Corpuscular 27.2 L Hemoglobin Mean Corpuscular 31.7 L Hemoglobin Concent Red Cell 19.6 H Distribution Width Platelet Count 37 #L Mean Platelet 13.3 H Volume Immature 0.900 H Granulocytes % Neutrophils % Segmented 67 Neutrophils % (Manual) Band Neutrophils % 21 H (Manual) Lymphocytes % Lymphocytes % 11 L (Manual) Monocytes % Monocytes % 1 (Manual) Eosinophils % Basophils % Myelocytes % 1 H (Manual) Nucleated Red 2 H Blood Cells % Immature 0.070 H Granulocytes # Neutrophils # Neutrophils # 5.6 (Manual) Band Neutrophils # 1.7 H Lymphocytes 0.8 (Manual) Lymphocytes # Monocytes # Monocytes # 0.0 L (Manual) Eosinophils # Basophils # Myelocytes # 0.0 Nucleated Red Blood Cells # Platelet Estimate SIG DECREASED Giant Platelets 1 H Polychromasia 3+ Poikilocytosis 1+ Anisocytosis 3+ Microcytosis 3+ Tear Drop Cells 1+ Sodium Level 134 L Potassium Level 4.3 Chloride Level 94 L Carbon Dioxide 33 H Level Anion Gap 7 Blood Urea 96 H Nitrogen Creatinine 0.77 Est Glomerular > 60 Filtrat Rate mL/min Glucose Level 96 Calcium Level 8.5 Phosphorus Level 3.6 Magnesium Level 3.3 H Test 07/29/18 13:14 Bedside Glucose 156 Medications Medication Current Medications IV Flush (NS 3 ml) 3 ml PER PROTOCOL IV ; Start 07/19/18 at 19:30 Ondansetron HCl (Zofran Inj) 4 mg Q6H PRN IV NAUSEA/VOMITING; Start 07/19/18 at 19:30 Morphine Sulfate (morphine) 2 mg Q4H PRN IV .PAIN 8-10 Last administered on 07/28/18 23:03; Admin Dose 2 MG; Start 07/19/18 at 19:30 Ferrous Sulfate (Ferrous Sulfate (Ec)) 325 mg DAILY PO Last administered on 07/29/18 08:28; Admin Dose 325 MG; Start 07/20/18 at 09:00; Stop 08/19/18 at 08:59 Nitroglycerin (Nitroglycerin (Sl Tab) 0.4 Mg) 1 tab [id number] PRN SL CHEST PAIN; Start 07/19/18 at 19:30 Miscellaneous Information (Pending [facility] Order For Wound Care) This patient pedro... PRN PRN XX WOUND CARE; Start 07/20/18 at 01:30 Insulin Aspart (Novolog Insulin Pen) NOVOLOG *MODERATE* ALGORI... Q4 SC Last administered on 07/29/18at 13:19; Admin Dose 2 UNIT; Start 07/20/18 at 17:00 Lorazepam (Ativan) 0.5 mg Q6 PRN IV AGITATION/ANXIETY Last administered on 07/29/18at 02:58; Admin Dose 0.5 MG; Start 07/22/18 at 17:00 Lansoprazole (Prevacid) 30 mg DAILY@06 GTB Last administered on 07/29/18at 05:34; Admin Dose 30 MG; Start 07/25/18 at 06:00 Insulin Glargine (Lantus) 16 units BID SC Last administered on 07/29/18 08:35; Admin Dose 16 UNITS; Start 07/26/18 at 21:00 Acetaminophen (Tylenol Tab) 650 mg Q6H PRN GTB .PAIN 1-3 OR TEMP; Start 07/27/18 at 09:00 Acetaminophen (Tylenol Tab) 650 mg Q6H PRN GTB MILD TO MODERATE PAIN; Start 07/27/18 at 09:00 Ascorbic Acid (Vitamin C) 500 mg DAILY GTB Last administered on 07/29/18 08:27; Admin Dose 500 MG; Start 07/27/18 at 09:00 Atorvastatin Calcium (Lipitor) 20 mg QHS GTB Last administered on 07/28/18 20:14; Admin Dose 20 MG; Start 07/27/18 at 21:00 Duloxetine HCl (Cymbalta) 30 mg DAILY GTB Last administered on 07/29/18 08:27; Admin Dose 30 MG; Start 07/27/18 at 09:00 Gabapentin (Neurontin) 400 mg Q8 GTB Last administered on 07/29/18 13:13; Admin Dose 400 MG; Start 07/27/18 at 14:00 Hydralazine HCl (Apresoline) 50 mg Q8 GTB Last administered on 07/29/18 05:34; Admin Dose 50 MG; Start 07/27/18 at 14:00 Isosorbide Dinitrate (Isordil) 10 mg TID GTB Last administered on 07/29/18 08:28; Admin Dose 10 MG; Start 07/27/18 at 09:00 Metoprolol Tartrate (Lopressor) 50 mg Q8 GTB Last administered on 07/29/18 05:34; Admin Dose 50 MG; Start 07/27/18 at 14:00 Multivitamins (Multivitamin) 30 ml DAILY GTB Last administered on 07/29/18 08:28; Admin Dose 30 ML; Start 07/27/18 at 09:00 Ondansetron HCl (Zofran Tab) 4 mg Q4H PRN GTB NAUSEA AND/OR VOMITING; Start 07/27/18 at 09:00 Senna (Senokot) 1 tab BID GTB Last administered on 07/29/18 08:28; Admin Dose 1 TAB; Start 07/27/18 at 09:00 Tramadol HCl (Ultram) 50 mg Q6H PRN GTB PAIN LEVEL 4-7; Start 07/27/18 at 09:00 Miscellaneous Information 1 ea NOTE XX ; Start 07/27/18 at 09:00 Glucose (Glutose) 15 gm Q15M PRN PO DECREASED GLUCOSE; Start 07/27/18 at 09:00 Glucose (Glutose) 22.5 gm Q15M PRN PO DECREASED GLUCOSE; Start 07/27/18 at 09:00 Dextrose (D50w Syringe) 25 ml Q15M PRN IV DECREASED GLUCOSE; Start 07/27/18 at 09:00 Dextrose (D50w Syringe) 50 ml Q15M PRN IV DECREASED GLUCOSE; Start 07/27/18 at 09:00 Glucagon (Glucagen) 1 mg Q15M PRN IM DECREASED GLUCOSE; Start 07/27/18 at 09:00 Glucose (Glutose) 15 gm Q15M PRN BUCCAL DECREASED GLUCOSE; Start 07/27/18 at 09:00 Prednisone (Prednisone) 40 mg DAILY GTB Last administered on 07/29/18at 08:28; Admin Dose 40 MG; Start 07/28/18 at 09:00 Insulin Human NPH (Humulin N) 18 unit DAILY@0900 SC Last administered on 07/29/18at 08:35; Admin Dose 18 UNIT; Start 07/29/18 at 09:00 DANIELA RAPP M.D. Jul 29, 2018 13:47
--- NOTE | 2018-07-29 13:49 | CONS ---
Consult Date/Type/Reason Admit Date/Time Jul 19, 2018 at 18:40 Initial Consult Date 07/22/18 Type of Consult Pulmonary Requesting Provider: LES TRENT Date/Time of Note DATE: 07/29/18 TIME: 13:48 Subjective Patient stable this morning. No respiratory distress. Unable to perform thoracentesis given the low platelet count. Objective Vital Signs Date Temp Pulse Resp B/P (MAP) Pulse Ox O2 O2 Flow FiO2 Time Delivery Rate 07/29/18 60 14 95 30 11:45 07/29/18 97.4 93/51 (65) 11:35 07/28/18 Trach 15:44 Collar Intake and Output 07/28/18 07/28/18 07/29/18 1414:59 22:59 06:59 IntakeIntake Total 1230 ml 1230 ml 1230 ml BalanceBalance 1230 ml 1230 ml 1230 ml Exam NECK: Supple. Trach site is clean and intact. CARDIAC: S1, S2. No added sounds or murmurs. CHEST: Diminished air entry bilaterally. ABDOMEN: Soft, nontender. No guarding or rebound. EXTREMITIES: No cyanosis, clubbing or edema. NEUROLOGIC: Generalized weakness. Vent Setting Ventilator Support Mode: AC Fraction of Inspired Oxygen pe: 30 Positive End Expiratory Pressu: 5.0 Results/Medications Result Diagram: 07/29/18 0610 07/29/18 0610 Results 24 hrs Laboratory Tests Test 07/28/18 13:56 07/28/18 16:49 07/28/18 17:16 07/28/18 20:13 White Blood Count 9.5 # Red Blood Count 3.16 L Hemoglobin 8.6 L Hematocrit 27.7 L Mean Corpuscular 87.7 Volume Mean Corpuscular 27.2 L Hemoglobin Mean Corpuscular 31.0 L Hemoglobin Concent Red Cell 18.6 H Distribution Width Platelet Count 47 #L Mean Platelet Volume Immature 2.200 H Granulocytes % Neutrophils % 86.4 H Lymphocytes % 8.1 L Monocytes % 3.0 Eosinophils % 0.0 Basophils % 0.3 Nucleated Red 2.4 H Blood Cells % Immature 0.210 H Granulocytes # Neutrophils # 8.2 H Lymphocytes # 0.8 Monocytes # 0.3 Eosinophils # 0.0 Basophils # 0.0 Nucleated Red 0.2 H Blood Cells # Prothrombin Time 15.6 H Prothrombin Time 1.2 Ratio INR International 1.23 Normalized Ratio Activated 27.[address] Time Bedside Glucose 218 202 Test 07/29/18 00:47 07/29/18 04:40 07/29/18 06:10 07/29/18 08:27 Bedside Glucose 148 111 133 White Blood Count 8.1 Red Blood Count 3.27 L Hemoglobin 8.9 L Hematocrit 28.1 L Mean Corpuscular 85.9 Volume Mean Corpuscular 27.2 L Hemoglobin Mean Corpuscular 31.7 L Hemoglobin Concent Red Cell 19.6 H Distribution Width Platelet Count 37 #L Mean Platelet 13.3 H Volume Immature 0.900 H Granulocytes % Neutrophils % Segmented 67 Neutrophils % (Manual) Band Neutrophils % 21 H (Manual) Lymphocytes % Lymphocytes % 11 L (Manual) Monocytes % Monocytes % 1 (Manual) Eosinophils % Basophils % Myelocytes % 1 H (Manual) Nucleated Red 2 H Blood Cells % Immature 0.070 H Granulocytes # Neutrophils # Neutrophils # 5.6 (Manual) Band Neutrophils # 1.7 H Lymphocytes 0.8 (Manual) Lymphocytes # Monocytes # Monocytes # 0.0 L (Manual) Eosinophils # Basophils # Myelocytes # 0.0 Nucleated Red Blood Cells # Platelet Estimate SIG DECREASED Giant Platelets 1 H Polychromasia 3+ Poikilocytosis 1+ Anisocytosis 3+ Microcytosis 3+ Tear Drop Cells 1+ Sodium Level 134 L Potassium Level 4.3 Chloride Level 94 L Carbon Dioxide 33 H Level Anion Gap 7 Blood Urea 96 H Nitrogen Creatinine 0.77 Est Glomerular > 60 Filtrat Rate mL/min Glucose Level 96 Calcium Level 8.5 Phosphorus Level 3.6 Magnesium Level 3.3 H Test 07/29/18 13:14 Bedside Glucose 156 Medications Current Medications IV Flush (NS 3 ml) 3 ml PER PROTOCOL IV ; Start 07/19/18 at 19:30 Ondansetron HCl (Zofran Inj) 4 mg Q6H PRN IV NAUSEA/VOMITING; Start 07/19/18 at 19:30 Morphine Sulfate (morphine) 2 mg Q4H PRN IV .PAIN 8-10 Last administered on 07/28/18at 23:03; Admin Dose 2 MG; Start 07/19/18 at 19:30 Ferrous Sulfate (Ferrous Sulfate (Ec)) 325 mg DAILY PO Last administered on 07/29/18at 08:28; Admin Dose 325 MG; Start 07/20/18 at 09:00; Stop 08/19/18 at 08:59 Nitroglycerin (Nitroglycerin (Sl Tab) 0.4 Mg) 1 tab [id number] PRN SL CHEST PAIN; Start 07/19/18 at 19:30 Miscellaneous Information (Pending [facility] Order For Wound Care) This patient pedro... PRN PRN XX WOUND CARE; Start 07/20/18 at 01:30 Insulin Aspart (Novolog Insulin Pen) NOVOLOG *MODERATE* ALGORI... Q4 SC Last administered on 07/29/18 13:19; Admin Dose 2 UNIT; Start 07/20/18 at 17:00 Lorazepam (Ativan) 0.5 mg Q6 PRN IV AGITATION/ANXIETY Last administered on 07/29/18at 02:58; Admin Dose 0.5 MG; Start 07/22/18 at 17:00 Lansoprazole (Prevacid) 30 mg DAILY@06 GTB Last administered on 07/29/18 05:34; Admin Dose 30 MG; Start 07/25/18 at 06:00 Insulin Glargine (Lantus) 16 units BID SC Last administered on 07/29/18 08:35; Admin Dose 16 UNITS; Start 07/26/18 at 21:00 Acetaminophen (Tylenol Tab) 650 mg Q6H PRN GTB .PAIN 1-3 OR TEMP; Start 07/27/18 at 09:00 Acetaminophen (Tylenol Tab) 650 mg Q6H PRN GTB MILD TO MODERATE PAIN; Start 07/27/18 at 09:00 Ascorbic Acid (Vitamin C) 500 mg DAILY GTB Last administered on 07/29/18 08:27; Admin Dose 500 MG; Start 07/27/18 at 09:00 Atorvastatin Calcium (Lipitor) 20 mg QHS GTB Last administered on 07/28/18 20:14; Admin Dose 20 MG; Start 07/27/18 at 21:00 Duloxetine HCl (Cymbalta) 30 mg DAILY GTB Last administered on 07/29/18 08:27; Admin Dose 30 MG; Start 07/27/18 at 09:00 Gabapentin (Neurontin) 400 mg Q8 GTB Last administered on 07/29/18 13:13; Admin Dose 400 MG; Start 07/27/18 at 14:00 Hydralazine HCl (Apresoline) 50 mg Q8 GTB Last administered on 07/29/18 05:34; Admin Dose 50 MG; Start 07/27/18 at 14:00 Isosorbide Dinitrate (Isordil) 10 mg TID GTB Last administered on 07/29/18 08:28; Admin Dose 10 MG; Start 07/27/18 at 09:00 Metoprolol Tartrate (Lopressor) 50 mg Q8 GTB Last administered on 07/29/18 05:34; Admin Dose 50 MG; Start 07/27/18 at 14:00 Multivitamins (Multivitamin) 30 ml DAILY GTB Last administered on 07/29/18 08:28; Admin Dose 30 ML; Start 07/27/18 at 09:00 Ondansetron HCl (Zofran Tab) 4 mg Q4H PRN GTB NAUSEA AND/OR VOMITING; Start 07/27/18 at 09:00 Senna (Senokot) 1 tab BID GTB Last administered on 07/29/18 08:28; Admin Dose 1 TAB; Start 07/27/18 at 09:00 Tramadol HCl (Ultram) 50 mg Q6H PRN GTB PAIN LEVEL 4-7; Start 07/27/18 at 09:00 Miscellaneous Information 1 ea NOTE XX ; Start 07/27/18 at 09:00 Glucose (Glutose) 15 gm Q15M PRN PO DECREASED GLUCOSE; Start 07/27/18 at 09:00 Glucose (Glutose) 22.5 gm Q15M PRN PO DECREASED GLUCOSE; Start 07/27/18 at 09:00 Dextrose (D50w Syringe) 25 ml Q15M PRN IV DECREASED GLUCOSE; Start 07/27/18 at 09:00 Dextrose (D50w Syringe) 50 ml Q15M PRN IV DECREASED GLUCOSE; Start 07/27/18 at 09:00 Glucagon (Glucagen) 1 mg Q15M PRN IM DECREASED GLUCOSE; Start 07/27/18 at 09:00 Glucose (Glutose) 15 gm Q15M PRN BUCCAL DECREASED GLUCOSE; Start 07/27/18 at 09:00 Prednisone (Prednisone) 40 mg DAILY GTB Last administered on 07/29/18 08:28; Admin Dose 40 MG; Start 07/28/18 at 09:00 Insulin Human NPH (Humulin N) 18 unit DAILY@0900 SC Last administered on 07/29/18at 08:35; Admin Dose 18 UNIT; Start 07/29/18 at 09:00 Assessment/Plan Hospital Course (Demo Recall) IMPRESSION AND PLAN: 1. Ventilator-dependent respiratory failure.Moderate right pleural effusion. 2. 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 3. Dysphagia with G-tube. 4. Anemia no active GI bleeding PLAN: 1. Continue hematology oncology recommendations for thrombocytopenia. 2. Hold off on thoracentesis until platelet count improves. Not urgent as patient is currently clinically stable. 3. Tube feeding as tolerated. 4. Cardiac recommendations. Consider transfer to [facility] or snf facility. AMOS CLEMENTS MD, [facility] Jul 29, 2018 13:49
--- NOTE | 2018-07-29 16:42 | CONS ---
Assessment/Plan Assessment/Plan Assessment/Plan (Daily) 1. Uremia with BUN rising to 100, Cr normal 3. ITP 4. severe thrombocytopenia 5. accelerated HTN 6. VDRF s/p Tracheostomy 7. Dysphagia S/p G tube Plan: Continue Hydralazine 50mg PO Q8 hr and MTP 50mg pO Q 8 hr Na 134, BUN/Cr 96/0.77, BP stable - Decrease prednisone to 20mg NGtube po daily pulmonary following, thoracentesis as per pulmonary plan will follow up Consultation Date/Type/Reason Admit Date/Time Jul 19, 2018 at 18:40 Initial Consult Date 07/22/18 Type of Consult NEPHROLOGY Requesting Provider: LES TRENT Date/Time of Note DATE: 07/29/18 TIME: 16:42 24 HR Interval Summary Free Text/Dictation Na 134, BUN/Cr 96/0.77, BP stable Exam/Review of Systems Exam Vitals Vital Signs Date Temp Pulse Resp B/P (MAP) Pulse Ox O2 O2 Flow FiO2 Time Delivery Rate 07/29/18 97.5 62 17 114/56 94 15:44 (75) 07/29/18 30 15:25 07/28/18 Trach 15:44 Collar Intake and Output 07/28/18 07/28/18 07/29/18 1515:00 23:00 07:00 IntakeIntake Total 1230 ml 1230 ml 1230 ml BalanceBalance 1230 ml 1230 ml 1230 ml Exam Constitutional: alert, awake + tracheostomy Respiratory: clear to auscultation, normal air movement, diminished breath sounds Cardiovascular: regular rate and rhythm, nl pulses Gastrointestinal: soft, non-tender, + g tube in place Musculoskeletal: nl extremities to inspection, muscle weakness, swelling Extremities: normal pulses Neurological: non focal, Results Result Diagram: 07/29/18 0610 07/29/18 0610 Results 24hrs Laboratory Tests Test 07/28/18 16:49 07/28/18 17:16 07/28/18 20:13 07/29/18 00:47 Prothrombin Time 15.6 H Prothrombin Time 1.2 Ratio INR International 1.23 Normalized Ratio Activated 27.[address] Time Bedside Glucose 218 202 148 Test 07/29/18 04:40 07/29/18 06:10 07/29/18 08:27 07/29/18 13:14 Bedside Glucose 111 133 156 White Blood Count 8.1 Red Blood Count 3.27 L Hemoglobin 8.9 L Hematocrit 28.1 L Mean Corpuscular 85.9 Volume Mean Corpuscular 27.2 L Hemoglobin Mean Corpuscular 31.7 L Hemoglobin Concent Red Cell 19.6 H Distribution Width Platelet Count 37 #L Mean Platelet 13.3 H Volume Immature 0.900 H Granulocytes % Neutrophils % Segmented 67 Neutrophils % (Manual) Band Neutrophils % 21 H (Manual) Lymphocytes % Lymphocytes % 11 L (Manual) Monocytes % Monocytes % 1 (Manual) Eosinophils % Basophils % Myelocytes % 1 H (Manual) Nucleated Red 2 H Blood Cells % Immature 0.070 H Granulocytes # Neutrophils # Neutrophils # 5.6 (Manual) Band Neutrophils # 1.7 H Lymphocytes 0.8 (Manual) Lymphocytes # Monocytes # Monocytes # 0.0 L (Manual) Eosinophils # Basophils # Myelocytes # 0.0 Nucleated Red Blood Cells # Platelet Estimate SIG DECREASED Giant Platelets 1 H Polychromasia 3+ Poikilocytosis 1+ Anisocytosis 3+ Microcytosis 3+ Tear Drop Cells 1+ Sodium Level 134 L Potassium Level 4.3 Chloride Level 94 L Carbon Dioxide 33 H Level Anion Gap 7 Blood Urea 96 H Nitrogen Creatinine 0.77 Est Glomerular > 60 Filtrat Rate mL/min Glucose Level 96 Calcium Level 8.5 Phosphorus Level 3.6 Magnesium Level 3.3 H Test 07/29/18 16:35 Bedside Glucose 130 Medications Medication Current Medications IV Flush (NS 3 ml) 3 ml PER PROTOCOL IV ; Start 07/19/18 at 19:30 Ondansetron HCl (Zofran Inj) 4 mg Q6H PRN IV NAUSEA/VOMITING; Start 07/19/18 at 19:30 Morphine Sulfate (morphine) 2 mg Q4H PRN IV .PAIN 8-10 Last administered on 07/28/18at 23:03; Admin Dose 2 MG; Start 07/19/18 at 19:30 Ferrous Sulfate (Ferrous Sulfate (Ec)) 325 mg DAILY PO Last administered on 07/29/18at 08:28; Admin Dose 325 MG; Start 07/20/18 at 09:00; Stop 08/19/18 at 08:59 Nitroglycerin (Nitroglycerin (Sl Tab) 0.4 Mg) 1 tab [id number] PRN SL CHEST PAIN; Start 07/19/18 at 19:30 Miscellaneous Information (Pending [facility] Order For Wound Care) This patient pedro... PRN PRN XX WOUND CARE; Start 07/20/18 at 01:30 Insulin Aspart (Novolog Insulin Pen) NOVOLOG *MODERATE* ALGORI... Q4 SC Last administered on 07/29/18 13:19; Admin Dose 2 UNIT; Start 07/20/18 at 17:00 Lorazepam (Ativan) 0.5 mg Q6 PRN IV AGITATION/ANXIETY Last administered on 07/29/18at 02:58; Admin Dose 0.5 MG; Start 07/22/18 at 17:00 Lansoprazole (Prevacid) 30 mg DAILY@06 GTB Last administered on 07/29/18 05:34; Admin Dose 30 MG; Start 07/25/18 at 06:00 Insulin Glargine (Lantus) 16 units BID SC Last administered on 07/29/18 08:35; Admin Dose 16 UNITS; Start 07/26/18 at 21:00 Acetaminophen (Tylenol Tab) 650 mg Q6H PRN GTB .PAIN 1-3 OR TEMP; Start 07/27/18 at 09:00 Acetaminophen (Tylenol Tab) 650 mg Q6H PRN GTB MILD TO MODERATE PAIN; Start 07/27/18 at 09:00 Ascorbic Acid (Vitamin C) 500 mg DAILY GTB Last administered on 07/29/18 08:27; Admin Dose 500 MG; Start 07/27/18 at 09:00 Atorvastatin Calcium (Lipitor) 20 mg QHS GTB Last administered on 07/28/18 20:14; Admin Dose 20 MG; Start 07/27/18 at 21:00 Duloxetine HCl (Cymbalta) 30 mg DAILY GTB Last administered on 07/29/18 08:27; Admin Dose 30 MG; Start 07/27/18 at 09:00 Gabapentin (Neurontin) 400 mg Q8 GTB Last administered on 07/29/18 13:13; Admin Dose 400 MG; Start 07/27/18 at 14:00 Hydralazine HCl (Apresoline) 50 mg Q8 GTB Last administered on 07/29/18 05:34; Admin Dose 50 MG; Start 07/27/18 at 14:00 Isosorbide Dinitrate (Isordil) 10 mg TID GTB Last administered on 07/29/18 08:28; Admin Dose 10 MG; Start 07/27/18 at 09:00 Metoprolol Tartrate (Lopressor) 50 mg Q8 GTB Last administered on 07/29/18 05:34; Admin Dose 50 MG; Start 07/27/18 at 14:00 Multivitamins (Multivitamin) 30 ml DAILY GTB Last administered on 07/29/18 08:28; Admin Dose 30 ML; Start 07/27/18 at 09:00 Ondansetron HCl (Zofran Tab) 4 mg Q4H PRN GTB NAUSEA AND/OR VOMITING; Start 07/27/18 at 09:00 Senna (Senokot) 1 tab BID GTB Last administered on 07/29/18 08:28; Admin Dose 1 TAB; Start 07/27/18 at 09:00 Tramadol HCl (Ultram) 50 mg Q6H PRN GTB PAIN LEVEL 4-7; Start 07/27/18 at 09:00 Miscellaneous Information 1 ea NOTE XX ; Start 07/27/18 at 09:00 Glucose (Glutose) 15 gm Q15M PRN PO DECREASED GLUCOSE; Start 07/27/18 at 09:00 Glucose (Glutose) 22.5 gm Q15M PRN PO DECREASED GLUCOSE; Start 07/27/18 at 09:00 Dextrose (D50w Syringe) 25 ml Q15M PRN IV DECREASED GLUCOSE; Start 07/27/18 at 09:00 Dextrose (D50w Syringe) 50 ml Q15M PRN IV DECREASED GLUCOSE; Start 07/27/18 at 09:00 Glucagon (Glucagen) 1 mg Q15M PRN IM DECREASED GLUCOSE; Start 07/27/18 at 09:00 Glucose (Glutose) 15 gm Q15M PRN BUCCAL DECREASED GLUCOSE; Start 07/27/18 at 09:00 Prednisone (Prednisone) 40 mg DAILY GTB Last administered on 07/29/18 08:28; Admin Dose 40 MG; Start 07/28/18 at 09:00 Insulin Human NPH (Humulin N) 18 unit DAILY@0900 SC Last administered on 08:35; Admin Dose 18 UNIT; Start 07/29/18 at 09:00 OCTAVIO BOX MD Jul 29, 2018 16:42
--- NOTE | 2018-07-29 17:24 | CONS ---
Assessment/Plan Assessment/Plan Problems: (1) Diabetes mellitus, type 2 Status: Chronic Comment: Improved glycemic control with current changes to insulin regimen. Will monitor closely as patient at risk for hypoglycemic episodes given decrease in corticosteroid dose. Assessment/Plan (Daily) Continue current insulin regimen. Consultation Date/Type/Reason Admit Date/Time Jul 19, 2018 at 18:40 Initial Consult Date 07/24/18 Type of Consult Endocrine Reason for Consultation Diabetes Mellitus Type 2 on Corticosteroids Requesting Provider: LES TRENT Date/Time of Note DATE: 07/29/18 TIME: 17:15 24 HR Interval Summary Free Text/Dictation No hypoglycemic events past 24 hours despite decrease in steroid dose. Exam/Review of Systems Exam Vitals Vital Signs Date Temp Pulse Resp B/P (MAP) Pulse Ox O2 O2 Flow FiO2 Time Delivery Rate 07/29/18 97.5 62 17 114/56 94 15:44 (75) 07/29/18 30 15:25 07/28/18 Trach 15:44 Collar Intake and Output 07/28/18 07/28/18 07/29/18 1515:00 23:00 07:00 IntakeIntake Total 1230 ml 1230 ml 1230 ml BalanceBalance 1230 ml 1230 ml 1230 ml Exam POC glucose levels reviewed Results Result Diagram: 07/29/18 0610 07/29/18 0610 Results 24hrs Laboratory Tests Test 07/28/18 17:16 07/28/18 20:13 07/29/18 00:47 07/29/18 04:40 Bedside Glucose 218 202 148 111 Test 07/29/18 06:10 07/29/18 08:27 07/29/18 13:14 07/29/18 16:35 White Blood Count 8.1 Red Blood Count 3.27 L Hemoglobin 8.9 L Hematocrit 28.1 L Mean Corpuscular 85.9 Volume Mean Corpuscular 27.2 L Hemoglobin Mean Corpuscular 31.7 L Hemoglobin Concent Red Cell 19.6 H Distribution Width Platelet Count 37 #L Mean Platelet 13.3 H Volume Immature 0.900 H Granulocytes % Neutrophils % Segmented 67 Neutrophils % (Manual) Band Neutrophils % 21 H (Manual) Lymphocytes % Lymphocytes % 11 L (Manual) Monocytes % Monocytes % 1 (Manual) Eosinophils % Basophils % Myelocytes % 1 H (Manual) Nucleated Red 2 H Blood Cells % Immature 0.070 H Granulocytes # Neutrophils # Neutrophils # 5.6 (Manual) Band Neutrophils # 1.7 H Lymphocytes 0.8 (Manual) Lymphocytes # Monocytes # Monocytes # 0.0 L (Manual) Eosinophils # Basophils # Myelocytes # 0.0 Nucleated Red Blood Cells # Platelet Estimate SIG DECREASED Giant Platelets 1 H Polychromasia 3+ Poikilocytosis 1+ Anisocytosis 3+ Microcytosis 3+ Tear Drop Cells 1+ Sodium Level 134 L Potassium Level 4.3 Chloride Level 94 L Carbon Dioxide 33 H Level Anion Gap 7 Blood Urea 96 H Nitrogen Creatinine 0.77 Est Glomerular > 60 Filtrat Rate mL/min Glucose Level 96 Calcium Level 8.5 Phosphorus Level 3.6 Magnesium Level 3.3 H Bedside Glucose 133 156 130 Medications Medication Current Medications IV Flush (NS 3 ml) 3 ml PER PROTOCOL IV ; Start 07/19/18 at 19:30 Ondansetron HCl (Zofran Inj) 4 mg Q6H PRN IV NAUSEA/VOMITING; Start 07/19/18 at 19:30 Morphine Sulfate (morphine) 2 mg Q4H PRN IV .PAIN 8-10 Last administered on 07/28/18at 23:03; Admin Dose 2 MG; Start 07/19/18 at 19:30 Ferrous Sulfate (Ferrous Sulfate (Ec)) 325 mg DAILY PO Last administered on 07/29/18at 08:28; Admin Dose 325 MG; Start 07/20/18 at 09:00; Stop 08/19/18 at 08:59 Nitroglycerin (Nitroglycerin (Sl Tab) 0.4 Mg) 1 tab [id number] PRN SL CHEST PAIN; Start 07/19/18 at 19:30 [facility] This patient pedro... PRN PRN XX WOUND CARE; Start 07/20/18 at 01:30 Insulin Aspart (Novolog Insulin Pen) NOVOLOG *MODERATE* ALGORI... Q4 SC Last administered on 07/29/18at 13:19; Admin Dose 2 UNIT; Start 07/20/18 at 17:00 Lorazepam (Ativan) 0.5 mg Q6 PRN IV AGITATION/ANXIETY Last administered on 07/29/18at 02:58; Admin Dose 0.5 MG; Start 07/22/18 at 17:00 Lansoprazole (Prevacid) 30 mg DAILY@06 GTB Last administered on 07/29/18 05: 34; Admin Dose 30 MG; Start 07/25/18 at 06:00 Insulin Glargine (Lantus) 16 units BID SC Last administered on 07/29/18 08:35; Admin Dose 16 UNITS; Start 07/26/18 at 21:00 Acetaminophen (Tylenol Tab) 650 mg Q6H PRN GTB .PAIN 1-3 OR TEMP; Start 07/27/18 at 09:00 Acetaminophen (Tylenol Tab) 650 mg Q6H PRN GTB MILD TO MODERATE PAIN; Start 07/27/18 at 09:00 Ascorbic Acid (Vitamin C) 500 mg DAILY GTB Last administered on 07/29/18 08:27; Admin Dose 500 MG; Start 07/27/18 at 09:00 Atorvastatin Calcium (Lipitor) 20 mg QHS GTB Last administered on 07/28/18 20:14; Admin Dose 20 MG; Start 07/27/18 at 21:00 Duloxetine HCl (Cymbalta) 30 mg DAILY GTB Last administered on 07/29/18 08:27; Admin Dose 30 MG; Start 07/27/18 at 09:00 Gabapentin (Neurontin) 400 mg Q8 GTB Last administered on 07/29/18 13:13; Admin Dose 400 MG; Start 07/27/18 at 14:00 Hydralazine HCl (Apresoline) 50 mg Q8 GTB Last administered on 07/29/18 05:34; Admin Dose 50 MG; Start 07/27/18 at 14:00 Isosorbide Dinitrate (Isordil) 10 mg TID GTB Last administered on 07/29/18 08:28; Admin Dose 10 MG; Start 07/27/18 at 09:00 Metoprolol Tartrate (Lopressor) 50 mg Q8 GTB Last administered on 07/29/18 05:34; Admin Dose 50 MG; Start 07/27/18 at 14:00 Multivitamins (Multivitamin) 30 ml DAILY GTB Last administered on 07/29/18 08:28; Admin Dose 30 ML; Start 07/27/18 at 09:00 Ondansetron HCl (Zofran Tab) 4 mg Q4H PRN GTB NAUSEA AND/OR VOMITING; Start 07/27/18 at 09:00 Senna (Senokot) 1 tab BID GTB Last administered on 07/29/18at 08:28; Admin Dose 1 TAB; Start 07/27/18 at 09:00 Tramadol HCl (Ultram) 50 mg Q6H PRN GTB PAIN LEVEL 4-7; Start 07/27/18 at 09:00 Miscellaneous Information 1 ea NOTE XX ; Start 07/27/18 at 09:00 Glucose (Glutose) 15 gm Q15M PRN PO DECREASED GLUCOSE; Start 07/27/18 at 09:00 Glucose (Glutose) 22.5 gm Q15M PRN PO DECREASED GLUCOSE; Start 07/27/18 at 09:00 Dextrose (D50w Syringe) 25 ml Q15M PRN IV DECREASED GLUCOSE; Start 07/27/18 at 09:00 Dextrose (D50w Syringe) 50 ml Q15M PRN IV DECREASED GLUCOSE; Start 07/27/18 at 09:00 Glucagon (Glucagen) 1 mg Q15M PRN IM DECREASED GLUCOSE; Start 07/27/18 at 09:00 Glucose (Glutose) 15 gm Q15M PRN BUCCAL DECREASED GLUCOSE; Start 07/27/18 at 09:00 Prednisone (Prednisone) 40 mg DAILY GTB Last administered on 07/29/18at 08:28; Admin Dose 40 MG; Start 07/28/18 at 09:00 Insulin Human NPH (Humulin N) 18 unit DAILY@0900 SC Last administered on at 08:35; Admin Dose 18 UNIT; Start 07/29/18 at 09:00 PAMELLA ANDERSON MD Jul 29, 2018 17:24
[2018-07-29] MEDS: ATORVASTATIN 20 MG TAB GTB SCH (21:57)
[2018-07-30] VITALS (24 sets, daily range): BP systolic 101–135; BP diastolic 49–75; PULSE 60–71; RESP 15–23
[2018-07-30] MEDS: INSULIN ASPART [NOVOLOG] 3 ML PEN SC SCH ×6 (01:00→21:22)
--- NOTE | 2018-07-30 04:57 | PN ---
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 Pt continued on Prednisone. - per hematology consultation. -VDRF with tracheostomy on 02/19/18. - per pulmonary - Azotemia - per nephro consult - monitor renal functions -Hx of Atrial fibrillation and atrial flutter. - unable to tolerate anticoagulation due to severe thrombocytopenia. 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 BS elevated - Continue Lantus and NovoLog. - per Endo consult -Anemia, monitor H&H. - Dysphagia -SP PEG placement on 02/19/18. -Colostomy -Bilateral BKA -Major depressive disorder -Hx of Stage III sacral decubitus ulcer Further recommendations based on clinical course. Plan of care discussed with Dr. Villatoro. Result Diagram: 07/29/18 0610 07/29/18 0610 Results 24hrs Laboratory Tests Test 07/29/18 06:10 07/29/18 08:27 07/29/18 13:14 07/29/18 16:35 White Blood Count 8.1 Red Blood Count 3.27 L Hemoglobin 8.9 L Hematocrit 28.1 L Mean Corpuscular 85.9 Volume Mean Corpuscular 27.2 L Hemoglobin Mean Corpuscular 31.7 L Hemoglobin Concent Red Cell 19.6 H Distribution Width Platelet Count 37 #L Mean Platelet 13.3 H Volume Immature 0.900 H Granulocytes % Neutrophils % Segmented 67 Neutrophils % (Manual) Band Neutrophils % 21 H (Manual) Lymphocytes % Lymphocytes % 11 L (Manual) Monocytes % Monocytes % 1 (Manual) Eosinophils % Basophils % Myelocytes % 1 H (Manual) Nucleated Red 2 H Blood Cells % Immature 0.070 H Granulocytes # Neutrophils # Neutrophils # 5.6 (Manual) Band Neutrophils # 1.7 H Lymphocytes 0.8 (Manual) Lymphocytes # Monocytes # Monocytes # 0.0 L (Manual) Eosinophils # Basophils # Myelocytes # 0.0 Nucleated Red Blood Cells # Platelet Estimate SIG DECREASED Giant Platelets 1 H Polychromasia 3+ Poikilocytosis 1+ Anisocytosis 3+ Microcytosis 3+ Tear Drop Cells 1+ Sodium Level 134 L Potassium Level 4.3 Chloride Level 94 L Carbon Dioxide 33 H Level Anion Gap 7 Blood Urea 96 H Nitrogen Creatinine 0.77 Est Glomerular > 60 Filtrat Rate mL/min Glucose Level 96 Calcium Level 8.5 Phosphorus Level 3.6 Magnesium Level 3.3 H Bedside Glucose 133 156 130 Test 07/29/18 22:00 07/30/18 01:19 Bedside Glucose 124 117 Subjective 24 Hr Interval Summary Free Text/Dictation - NAD - afebrile - VSS - lethargic - no new events reported last night Subjective hx not possible: pt non-verbal Constitutional: requiring O2 Exam/Review of Systems Exam Vitals Vital Signs Date Temp Pulse Resp B/P (MAP) Pulse Ox O2 O2 Flow FiO2 Time Delivery Rate 07/30/18 60 01:57 07/30/18 17 98 35 01:42 07/30/18 97.8 118/51 00:25 (73) 07/28/18 Trach 15:44 Collar Intake and Output 07/29/18 07/29/18 07/30/18 1414:59 22:59 06:59 IntakeIntake Total 1240 ml BalanceBalance 1240 ml Constitutional: non-verbal, frail Psych: nl mood/affect Eyes: nl lids, nl sclera ENMT: nl external ears & nose Neck: other (trach intact) Respiratory: clear to auscultation Cardiovascular: nl pulses, other (s1s2) Gastrointestinal: soft, other (gt intact, colostomy noted) Musculoskeletal: muscle weakness, range of motion Extremities: other (renae BKA) Neurological: confused Skin: other (decub) Results Results 24hrs Laboratory Tests Test 07/29/18 06:10 07/29/18 08:27 07/29/18 13:14 07/29/18 16:35 White Blood Count 8.1 Red Blood Count 3.27 L Hemoglobin 8.9 L Hematocrit 28.1 L Mean Corpuscular 85.9 Volume Mean Corpuscular 27.2 L Hemoglobin Mean Corpuscular 31.7 L Hemoglobin Concent Red Cell 19.6 H Distribution Width Platelet Count 37 #L Mean Platelet 13.3 H Volume Immature 0.900 H Granulocytes % Neutrophils % Segmented 67 Neutrophils % (Manual) Band Neutrophils % 21 H (Manual) Lymphocytes % Lymphocytes % 11 L (Manual) Monocytes % Monocytes % 1 (Manual) Eosinophils % Basophils % Myelocytes % 1 H (Manual) Nucleated Red 2 H Blood Cells % Immature 0.070 H Granulocytes # Neutrophils # Neutrophils # 5.6 (Manual) Band Neutrophils # 1.7 H Lymphocytes 0.8 (Manual) Lymphocytes # Monocytes # Monocytes # 0.0 L (Manual) Eosinophils # Basophils # Myelocytes # 0.0 Nucleated Red Blood Cells # Platelet Estimate SIG DECREASED Giant Platelets 1 H Polychromasia 3+ Poikilocytosis 1+ Anisocytosis 3+ Microcytosis 3+ Tear Drop Cells 1+ Sodium Level 134 L Potassium Level 4.3 Chloride Level 94 L Carbon Dioxide 33 H Level Anion Gap 7 Blood Urea 96 H Nitrogen Creatinine 0.77 Est Glomerular > 60 Filtrat Rate mL/min Glucose Level 96 Calcium Level 8.5 Phosphorus Level 3.6 Magnesium Level 3.3 H Bedside Glucose 133 156 130 Test 07/29/18 22:00 07/30/18 01:19 Bedside Glucose 124 117 Medications Medication Current Medications IV Flush (NS 3 ml) 3 ml PER PROTOCOL IV ; Start 07/19/18 at 19:30 Ondansetron HCl (Zofran Inj) 4 mg Q6H PRN IV NAUSEA/VOMITING; Start 07/19/18 at 19:30 Morphine Sulfate (morphine) 2 mg Q4H PRN IV .PAIN 8-10 Last administered on 07/28/18at 23:03; Admin Dose 2 MG; Start 07/19/18 at 19:30 Ferrous Sulfate (Ferrous Sulfate (Ec)) 325 mg DAILY PO Last administered on 07/29/18at 08:28; Admin Dose 325 MG; Start 07/20/18 at 09:00; Stop 08/19/18 at 08:59 Nitroglycerin (Nitroglycerin (Sl Tab) 0.4 Mg) 1 tab [id number] PRN SL CHEST PAIN; Start 07/19/18 at 19:30 Miscellaneous Information (Pending [facility] Order For Wound Care) This patient pedro... PRN PRN XX WOUND CARE; Start 07/20/18 at 01:30 Insulin Aspart (Novolog Insulin Pen) NOVOLOG *MODERATE* ALGORI... Q4 SC Last administered on 07/29/18 13:19; Admin Dose 2 UNIT; Start 07/20/18 at 17:00 Lorazepam (Ativan) 0.5 mg Q6 PRN IV AGITATION/ANXIETY Last administered on 07/29/18 02:58; Admin Dose 0.5 MG; Start 07/22/18 at 17:00 Lansoprazole (Prevacid) 30 mg DAILY@06 GTB Last administered on 07/29/18 05:34; Admin Dose 30 MG; Start 07/25/18 at 06:00 Insulin Glargine (Lantus) 16 units BID SC Last administered on 07/29/18 22:03; Admin Dose 16 UNITS; Start 07/26/18 at 21:00 Acetaminophen (Tylenol Tab) 650 mg Q6H PRN GTB .PAIN 1-3 OR TEMP; Start 07/27/18 at 09:00 Acetaminophen (Tylenol Tab) 650 mg Q6H PRN GTB MILD TO MODERATE PAIN; Start 07/27/18 at 09:00 Ascorbic Acid (Vitamin C) 500 mg DAILY GTB Last administered on 07/29/18 08:27; Admin Dose 500 MG; Start 07/27/18 at 09:00 Atorvastatin Calcium (Lipitor) 20 mg QHS GTB Last administered on 07/29/18 21:57; Admin Dose 20 MG; Start 07/27/18 at 21:00 Duloxetine HCl (Cymbalta) 30 mg DAILY GTB Last administered on 07/29/18 08:27; Admin Dose 30 MG; Start 07/27/18 at 09:00 Gabapentin (Neurontin) 400 mg Q8 GTB Last administered on 07/29/18 21:57; Admin Dose 400 MG; Start 07/27/18 at 14:00 Hydralazine HCl (Apresoline) 50 mg Q8 GTB Last administered on 07/29/18 21:57; Admin Dose 50 MG; Start 07/27/18 at 14:00 Isosorbide Dinitrate (Isordil) 10 mg TID GTB Last administered on 07/29/18at 21:57; Admin Dose 10 MG; Start 07/27/18 at 09:00 Metoprolol Tartrate (Lopressor) 50 mg Q8 GTB Last administered on 07/29/18 21:58; Admin Dose 50 MG; Start 07/27/18 at 14:00 Multivitamins (Multivitamin) 30 ml DAILY GTB Last administered on 07/29/18 08:28; Admin Dose 30 ML; Start 07/27/18 at 09:00 Ondansetron HCl (Zofran Tab) 4 mg Q4H PRN GTB NAUSEA AND/OR VOMITING; Start 07/27/18 at 09:00 Senna (Senokot) 1 tab BID GTB Last administered on 07/29/18 21:58; Admin Dose 1 TAB; Start 07/27/18 at 09:00 Tramadol HCl (Ultram) 50 mg Q6H PRN GTB PAIN LEVEL 4-7; Start 07/27/18 at 09:00 Miscellaneous Information 1 ea NOTE XX ; Start 07/27/18 at 09:00 Glucose (Glutose) 15 gm Q15M PRN PO DECREASED GLUCOSE; Start 07/27/18 at 09:00 Glucose (Glutose) 22.5 gm Q15M PRN PO DECREASED GLUCOSE; Start 07/27/18 at 09:00 Dextrose (D50w Syringe) 25 ml Q15M PRN IV DECREASED GLUCOSE; Start 07/27/18 at 09:00 Dextrose (D50w Syringe) 50 ml Q15M PRN IV DECREASED GLUCOSE; Start 07/27/18 at 09:00 Glucagon (Glucagen) 1 mg Q15M PRN IM DECREASED GLUCOSE; Start 07/27/18 at 09:00 Glucose (Glutose) 15 gm Q15M PRN BUCCAL DECREASED GLUCOSE; Start 07/27/18 at 09:00 Insulin Human NPH (Humulin N) 18 unit DAILY@0900 SC Last administered on 07/29/18at 08:35; Admin Dose 18 UNIT; Start 07/29/18 at 09:00 Prednisone (Prednisone) 20 mg DAILY GTB ; Start 07/30/18 at 09:00 LES TRENT July 30, 2018 04:57
--- NOTE | 2018-07-30 04:58 | PN ---
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 Pt continued on Prednisone. - per hematology consultation. -VDRF with tracheostomy on 02/19/18. - per pulmonary - Azotemia - per nephro consult - monitor renal functions -Hx of Atrial fibrillation and atrial flutter. - unable to tolerate anticoagulation due to severe thrombocytopenia. 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 BS elevated - Continue Lantus and NovoLog. - per Endo consult -Anemia, monitor H&H. - Dysphagia -SP PEG placement on 02/19/18. -Colostomy -Bilateral BKA -Major depressive disorder -Hx of Stage III sacral decubitus ulcer Further recommendations based on clinical course. Plan of care discussed with Dr. Villatoro. Result Diagram: 07/29/18 0610 07/29/18 0610 Results 24hrs Laboratory Tests Test 07/29/18 06:10 07/29/18 08:27 07/29/18 13:14 07/29/18 16:35 White Blood Count 8.1 Red Blood Count 3.27 L Hemoglobin 8.9 L Hematocrit 28.1 L Mean Corpuscular 85.9 Volume Mean Corpuscular 27.2 L Hemoglobin Mean Corpuscular 31.7 L Hemoglobin Concent Red Cell 19.6 H Distribution Width Platelet Count 37 #L Mean Platelet 13.3 H Volume Immature 0.900 H Granulocytes % Neutrophils % Segmented 67 Neutrophils % (Manual) Band Neutrophils % 21 H (Manual) Lymphocytes % Lymphocytes % 11 L (Manual) Monocytes % Monocytes % 1 (Manual) Eosinophils % Basophils % Myelocytes % 1 H (Manual) Nucleated Red 2 H Blood Cells % Immature 0.070 H Granulocytes # Neutrophils # Neutrophils # 5.6 (Manual) Band Neutrophils # 1.7 H Lymphocytes 0.8 (Manual) Lymphocytes # Monocytes # Monocytes # 0.0 L (Manual) Eosinophils # Basophils # Myelocytes # 0.0 Nucleated Red Blood Cells # Platelet Estimate SIG DECREASED Giant Platelets 1 H Polychromasia 3+ Poikilocytosis 1+ Anisocytosis 3+ Microcytosis 3+ Tear Drop Cells 1+ Sodium Level 134 L Potassium Level 4.3 Chloride Level 94 L Carbon Dioxide 33 H Level Anion Gap 7 Blood Urea 96 H Nitrogen Creatinine 0.77 Est Glomerular > 60 Filtrat Rate mL/min Glucose Level 96 Calcium Level 8.5 Phosphorus Level 3.6 Magnesium Level 3.3 H Bedside Glucose 133 156 130 Test 07/29/18 22:00 07/30/18 01:19 Bedside Glucose 124 117 Subjective 24 Hr Interval Summary Free Text/Dictation 07/28/2018 entry Subjective hx not possible: pt non-verbal Constitutional: requiring O2 Exam/Review of Systems Exam Vitals Vital Signs Date Temp Pulse Resp B/P (MAP) Pulse Ox O2 O2 Flow FiO2 Time Delivery Rate 07/30/18 60 01:57 07/30/18 17 98 35 01:42 07/30/18 97.8 118/51 00:25 (73) 07/28/18 Trach 15:44 Collar Intake and Output 07/29/18 07/29/18 07/30/18 1414:59 22:59 06:59 IntakeIntake Total 1240 ml BalanceBalance 1240 ml Constitutional: non-verbal Psych: nl mood/affect Eyes: nl lids, nl sclera ENMT: nl external ears & nose Neck: other (trach intact) Respiratory: clear to auscultation Cardiovascular: nl pulses, other (s1s2) Gastrointestinal: soft, non-tender Musculoskeletal: muscle weakness, range of motion Extremities: other (renae BKA) Neurological: confused Skin: other (DECUB) Results Results 24hrs Laboratory Tests Test 07/29/18 06:10 07/29/18 08:27 07/29/18 13:14 07/29/18 16:35 White Blood Count 8.1 Red Blood Count 3.27 L Hemoglobin 8.9 L Hematocrit 28.1 L Mean Corpuscular 85.9 Volume Mean Corpuscular 27.2 L Hemoglobin Mean Corpuscular 31.7 L Hemoglobin Concent Red Cell 19.6 H Distribution Width Platelet Count 37 #L Mean Platelet 13.3 H Volume Immature 0.900 H Granulocytes % Neutrophils % Segmented 67 Neutrophils % (Manual) Band Neutrophils % 21 H (Manual) Lymphocytes % Lymphocytes % 11 L (Manual) Monocytes % Monocytes % 1 (Manual) Eosinophils % Basophils % Myelocytes % 1 H (Manual) Nucleated Red 2 H Blood Cells % Immature 0.070 H Granulocytes # Neutrophils # Neutrophils # 5.6 (Manual) Band Neutrophils # 1.7 H Lymphocytes 0.8 (Manual) Lymphocytes # Monocytes # Monocytes # 0.0 L (Manual) Eosinophils # Basophils # Myelocytes # 0.0 Nucleated Red Blood Cells # Platelet Estimate SIG DECREASED Giant Platelets 1 H Polychromasia 3+ Poikilocytosis 1+ Anisocytosis 3+ Microcytosis 3+ Tear Drop Cells 1+ Sodium Level 134 L Potassium Level 4.3 Chloride Level 94 L Carbon Dioxide 33 H Level Anion Gap 7 Blood Urea 96 H Nitrogen Creatinine 0.77 Est Glomerular > 60 Filtrat Rate mL/min Glucose Level 96 Calcium Level 8.5 Phosphorus Level 3.6 Magnesium Level 3.3 H Bedside Glucose 133 156 130 Test 07/29/18 22:00 07/30/18 01:19 Bedside Glucose 124 117 Medications Medication Current Medications IV Flush (NS 3 ml) 3 ml PER PROTOCOL IV ; Start 07/19/18 at 19:30 Ondansetron HCl (Zofran Inj) 4 mg Q6H PRN IV NAUSEA/VOMITING; Start 07/19/18 at 19:30 Morphine Sulfate (morphine) 2 mg Q4H PRN IV .PAIN 8-10 Last administered on 07/28/18at 23:03; Admin Dose 2 MG; Start 07/19/18 at 19:30 Ferrous Sulfate (Ferrous Sulfate (Ec)) 325 mg DAILY PO Last administered on 07/29/18at 08:28; Admin Dose 325 MG; Start 07/20/18 at 09:00; Stop 08/19/18 at 08:59 Nitroglycerin (Nitroglycerin (Sl Tab) 0.4 Mg) 1 tab [id number] PRN SL CHEST PAIN; Start 07/19/18 at 19:30 [facility] This patient pedro... PRN PRN XX WOUND CARE; Start 07/20/18 at 01:30 Insulin Aspart (Novolog Insulin Pen) NOVOLOG *MODERATE* ALGORI... Q4 SC Last administered on 07/29/18 13:19; Admin Dose 2 UNIT; Start 07/20/18 at 17:00 Lorazepam (Ativan) 0.5 mg Q6 PRN IV AGITATION/ANXIETY Last administered on 07/29/18 02:58; Admin Dose 0.5 MG; Start 07/22/18 at 17:00 Lansoprazole (Prevacid) 30 mg DAILY@06 GTB Last administered on 07/29/18 05:34; Admin Dose 30 MG; Start 07/25/18 at 06:00 Insulin Glargine (Lantus) 16 units BID SC Last administered on 07/29/18 22:03; Admin Dose 16 UNITS; Start 07/26/18 at 21:00 Acetaminophen (Tylenol Tab) 650 mg Q6H PRN GTB .PAIN 1-3 OR TEMP; Start 07/27/18 at 09:00 Acetaminophen (Tylenol Tab) 650 mg Q6H PRN GTB MILD TO MODERATE PAIN; Start 07/27/18 at 09:00 Ascorbic Acid (Vitamin C) 500 mg DAILY GTB Last administered on 07/29/18 08:27; Admin Dose 500 MG; Start 07/27/18 at 09:00 Atorvastatin Calcium (Lipitor) 20 mg QHS GTB Last administered on 07/29/18 21:57; Admin Dose 20 MG; Start 07/27/18 at 21:00 Duloxetine HCl (Cymbalta) 30 mg DAILY GTB Last administered on 07/29/18 08:27; Admin Dose 30 MG; Start 07/27/18 at 09:00 Gabapentin (Neurontin) 400 mg Q8 GTB Last administered on 07/29/18 21:57; Admin Dose 400 MG; Start 07/27/18 at 14:00 Hydralazine HCl (Apresoline) 50 mg Q8 GTB Last administered on 07/29/18 21:57; Admin Dose 50 MG; Start 07/27/18 at 14:00 Isosorbide Dinitrate (Isordil) 10 mg TID GTB Last administered on 07/29/18 21:57; Admin Dose 10 MG; Start 07/27/18 at 09:00 Metoprolol Tartrate (Lopressor) 50 mg Q8 GTB Last administered on 07/29/18at 21:58; Admin Dose 50 MG; Start 07/27/18 at 14:00 Multivitamins (Multivitamin) 30 ml DAILY GTB Last administered on 07/29/18at 08:28; Admin Dose 30 ML; Start 07/27/18 at 09:00 Ondansetron HCl (Zofran Tab) 4 mg Q4H PRN GTB NAUSEA AND/OR VOMITING; Start 07/27/18 at 09:00 Senna (Senokot) 1 tab BID GTB Last administered on 07/29/18at 21:58; Admin Dose 1 TAB; Start 07/27/18 at 09:00 Tramadol HCl (Ultram) 50 mg Q6H PRN GTB PAIN LEVEL 4-7; Start 07/27/18 at 09:00 Miscellaneous Information 1 ea NOTE XX ; Start 07/27/18 at 09:00 Glucose (Glutose) 15 gm Q15M PRN PO DECREASED GLUCOSE; Start 07/27/18 at 09:00 Glucose (Glutose) 22.5 gm Q15M PRN PO DECREASED GLUCOSE; Start 07/27/18 at 09:00 Dextrose (D50w Syringe) 25 ml Q15M PRN IV DECREASED GLUCOSE; Start 07/27/18 at 09:00 Dextrose (D50w Syringe) 50 ml Q15M PRN IV DECREASED GLUCOSE; Start 07/27/18 at 09:00 Glucagon (Glucagen) 1 mg Q15M PRN IM DECREASED GLUCOSE; Start 07/27/18 at 09:00 Glucose (Glutose) 15 gm Q15M PRN BUCCAL DECREASED GLUCOSE; Start 07/27/18 at 09:00 Insulin Human NPH (Humulin N) 18 unit DAILY@0900 SC Last administered on 07/29/18at 08:35; Admin Dose 18 UNIT; Start 07/29/18 at 09:00 Prednisone (Prednisone) 20 mg DAILY GTB ; Start 07/30/18 at 09:00 LES TRENT July 30, 2018 04:58
[2018-07-30] MEDS: METOPROLOL 50 MG TAB GTB SCH ×3 (05:26→21:20)
[2018-07-30] MEDS: GABAPENTIN 400 MG CAP GTB SCH ×3 (05:26→21:20)
[2018-07-30] MEDS: LANSOPRAZOLE 30 MG CAP GTB SCH (05:30)
[2018-07-30] MEDS: LORAZEPAM 2 MG INJ IV PRN (05:31)
[2018-07-30] MEDS: INSULIN GLARGINE [LANTus] (100 UNITS/ML) SYG SC SCH ×2 (09:27→21:25)
[2018-07-30] MEDS: NPH, HUMAN INSULIN ISOPHANE 3ML VIAL SC SCH (09:27)
[2018-07-30] MEDS: ASCORBIC ACID 500 MG TAB GTB SCH (09:28)
[2018-07-30] MEDS: SENNA TAB GTB SCH ×2 (09:28→21:19)
[2018-07-30] MEDS: DULOXETINE 30 MG CAP DR GTB SCH (09:28)
[2018-07-30] MEDS: MULTIVITAMINS 30 ML CUP GTB SCH (09:28)
[2018-07-30] MEDS: FERROUS SULFATE (EC) 325 MG TAB PO SCH (09:28)
[2018-07-30] MEDS: predniSONE 20 MG TAB GTB SCH (09:28)
[2018-07-30] MEDS: ISOSORBIDE DINITRATE 10 MG TAB GTB SCH ×3 (09:43→21:19)
--- NOTE | 2018-07-30 10:06 | CONS ---
Assessment/Plan Assessment/Plan Assessment/Plan (Daily) 1. Uremia with BUN rising to 100, Cr normal 3. ITP 4. severe thrombocytopenia 5. accelerated HTN 6. VDRF s/p Tracheostomy 7. Dysphagia S/p G tube Plan: Continue Hydralazine 50mg PO Q8 hr and MTP 50mg pO Q 8 hr Na 133, BUN/Cr 87/0.75 BP stable - prednisone to 20mg NGtube po daily pulmonary following, thoracentesis as per pulmonary plan will follow up Consultation Date/Type/Reason Admit Date/Time Jul 19, 2018 at 18:40 Initial Consult Date 07/22/18 Type of Consult NEPHROLOGY Requesting Provider: LES TRENT Date/Time of Note DATE: 07/30/18 TIME: 10:05 Exam/Review of Systems Exam Vitals Vital Signs Date Temp Pulse Resp B/P (MAP) Pulse Ox O2 O2 Flow FiO2 Time Delivery Rate 07/30/18 64 09:14 07/30/18 16 96 35 08:43 07/30/18 99.4 105/51 07:49 (69) 07/28/18 Trach 15:44 Collar Intake and Output 07/29/18 07/29/18 07/30/18 1515:00 23:00 07:00 IntakeIntake Total 1240 ml 1240 ml BalanceBalance 1240 ml 1240 ml Exam Constitutional: alert, awake + tracheostomy Respiratory: clear to auscultation, normal air movement, diminished breath sounds Cardiovascular: regular rate and rhythm, nl pulses Gastrointestinal: soft, non-tender, + g tube in place Musculoskeletal: nl extremities to inspection, muscle weakness, swelling Extremities: normal pulses Neurological: non focal, Results Result Diagram: 07/30/18 0540 07/30/18 0540 Results 24hrs Laboratory Tests Test 07/29/18 13:14 07/29/18 16:35 07/29/18 22:00 07/30/18 01:19 Bedside Glucose 156 130 124 117 Test 07/30/18 05:40 07/30/18 07:49 White Blood Count 8.7 Red Blood Count 2.92 L Hemoglobin 8.0 L Hematocrit 25.4 L Mean Corpuscular 87.0 Volume Mean Corpuscular 27.4 L Hemoglobin Mean Corpuscular 31.5 L Hemoglobin Concent Red Cell 19.5 H Distribution Width Platelet Count 36 L Mean Platelet 13.0 H Volume Immature 0.900 H Granulocytes % Neutrophils % Segmented 61 Neutrophils % (Manual) Band Neutrophils % 22 H (Manual) Lymphocytes % Lymphocytes % 14 L (Manual) Monocytes % Monocytes % 2 (Manual) Eosinophils % Eosinophils % 1 (Manual) Basophils % Nucleated Red Blood 2 H Cells % Immature 0.080 H Granulocytes # Neutrophils # Neutrophils # 5.5 (Manual) Band Neutrophils # 1.9 H Lymphocytes 1.2 (Manual) Lymphocytes # Monocytes # Monocytes # 0.1 L (Manual) Eosinophils # Basophils # Nucleated Red Blood Cells # Platelet Estimate SIG DECREASED Polychromasia 3+ Poikilocytosis 1+ Anisocytosis 2+ Microcytosis 2+ Spherocytes 1+ Sodium Level 133 L Potassium Level 4.7 Chloride Level 92 L Carbon Dioxide 36 H Level Anion Gap 5 Blood Urea Nitrogen 87 H Creatinine 0.75 Est Glomerular > 60 Filtrat Rate mL/min Glucose Level 123 Bedside Glucose 160 146 Calcium Level 8.0 L Medications Medication Current Medications IV Flush (NS 3 ml) 3 ml PER PROTOCOL IV ; Start 07/19/18 at 19:30 Ondansetron HCl (Zofran Inj) 4 mg Q6H PRN IV NAUSEA/VOMITING; Start 07/19/18 at 19:30 Morphine Sulfate (morphine) 2 mg Q4H PRN IV .PAIN 8-10 Last administered on 07/28/18at 23:03; Admin Dose 2 MG; Start 07/19/18 at 19:30 Ferrous Sulfate (Ferrous Sulfate (Ec)) 325 mg DAILY PO Last administered on 07/30/18at 09:28; Admin Dose 325 MG; Start 07/20/18 at 09:00; Stop 08/19/18 at 08:59 Nitroglycerin (Nitroglycerin (Sl Tab) 0.4 Mg) 1 tab [id number] PRN SL CHEST PAIN; Start 07/19/18 at 19:30 Miscellaneous Information [facility] This patient pedro... PRN PRN XX WOUND CARE; Start 07/20/18 at 01:30 Insulin Aspart (Novolog Insulin Pen) NOVOLOG *MODERATE* ALGORI... Q4 SC Last administered on 07/30/18at 09:27; Admin Dose 2 UNIT; Start 07/20/18 at 17:00 Lorazepam (Ativan) 0.5 mg Q6 PRN IV AGITATION/ANXIETY Last administered on 07/30/18 05:31; Admin Dose 0.5 MG; Start 07/22/18 at 17:00 Lansoprazole (Prevacid) 30 mg DAILY@06 GTB Last administered on 07/30/18 05:30; Admin Dose 30 MG; Start 07/25/18 at 06:00 Insulin Glargine (Lantus) 16 units BID SC Last administered on 07/30/18 09:27; Admin Dose 16 UNITS; Start 07/26/18 at 21:00 Acetaminophen (Tylenol Tab) 650 mg Q6H PRN GTB .PAIN 1-3 OR TEMP; Start 07/27/18 at 09:00 Acetaminophen (Tylenol Tab) 650 mg Q6H PRN GTB MILD TO MODERATE PAIN; Start 07/27/18 at 09:00 Ascorbic Acid (Vitamin C) 500 mg DAILY GTB Last administered on 07/30/18 09:28; Admin Dose 500 MG; Start 07/27/18 at 09:00 Atorvastatin Calcium (Lipitor) 20 mg QHS GTB Last administered on 07/29/18 21:57; Admin Dose 20 MG; Start 07/27/18 at 21:00 Duloxetine HCl (Cymbalta) 30 mg DAILY GTB Last administered on 07/30/18 09:28; Admin Dose 30 MG; Start 07/27/18 at 09:00 Gabapentin (Neurontin) 400 mg Q8 GTB Last administered on 07/30/18 05:26; Admin Dose 400 MG; Start 07/27/18 at 14:00 Hydralazine HCl (Apresoline) 50 mg Q8 GTB Last administered on 07/30/18 05:26; Admin Dose 50 MG; Start 07/27/18 at 14:00 Isosorbide Dinitrate (Isordil) 10 mg TID GTB Last administered on 07/30/18 09:43; Admin Dose 10 MG; Start 07/27/18 at 09:00 Metoprolol Tartrate (Lopressor) 50 mg Q8 GTB Last administered on 07/30/18 05:26; Admin Dose 50 MG; Start 07/27/18 at 14:00 Multivitamins (Multivitamin) 30 ml DAILY GTB Last administered on 5/1/19at 09:28; Admin Dose 30 ML; Start 07/27/18 at 09:00 Ondansetron HCl (Zofran Tab) 4 mg Q4H PRN GTB NAUSEA AND/OR VOMITING; Start 07/27/18 at 09:00 Senna (Senokot) 1 tab BID GTB Last administered on 07/30/18at 09:28; Admin Dose 1 TAB; Start 07/27/18 at 09:00 Tramadol HCl (Ultram) 50 mg Q6H PRN GTB PAIN LEVEL 4-7; Start 07/27/18 at 09:00 Miscellaneous Information 1 ea NOTE XX ; Start 07/27/18 at 09:00 Glucose (Glutose) 15 gm Q15M PRN PO DECREASED GLUCOSE; Start 07/27/18 at 09:00 Glucose (Glutose) 22.5 gm Q15M PRN PO DECREASED GLUCOSE; Start 07/27/18 at 09:00 Dextrose (D50w Syringe) 25 ml Q15M PRN IV DECREASED GLUCOSE; Start 07/27/18 at 09:00 Dextrose (D50w Syringe) 50 ml Q15M PRN IV DECREASED GLUCOSE; Start 07/27/18 at 09:00 Glucagon (Glucagen) 1 mg Q15M PRN IM DECREASED GLUCOSE; Start 07/27/18 at 09:00 Glucose (Glutose) 15 gm Q15M PRN BUCCAL DECREASED GLUCOSE; Start 07/27/18 at 09:00 Insulin Human NPH (Humulin N) 18 unit DAILY@0900 SC Last administered on 07/30/18at 09:27; Admin Dose 18 UNIT; Start 07/29/18 at 09:00 Prednisone (Prednisone) 20 mg DAILY GTB Last administered on 07/30/18at 09:28; Admin Dose 20 MG; Start 07/30/18 at 09:00 OCTAVIO BOX MD July 30, 2018 10:06
--- NOTE | 2018-07-30 10:18 | CONS ---
Assessment/Plan Assessment/Plan Problems: (1) Diabetes mellitus type 2 with complications Status: Chronic Comment: Good glycemic control overall on current dose of insulin, but decrease in prednisone dose from 40mg to 20mg increases his risk for hypoglycemia. 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 Requesting Provider: LES TRENT Date/Time of Note DATE: 07/30/18 TIME: 10:13 24 HR Interval Summary Free Text/Dictation No hypoglycemic events past 24 hours Exam/Review of Systems Exam Vitals Vital Signs Date Temp Pulse Resp B/P (MAP) Pulse Ox O2 O2 Flow FiO2 Time Delivery Rate 07/30/18 64 09:14 07/30/18 16 96 35 08:43 07/30/18 99.4 105/51 07:49 (69) 07/28/18 Trach 15:44 Collar Intake and Output 07/29/18 07/29/18 07/30/18 1414:59 22:59 06:59 IntakeIntake Total 1240 ml 1240 ml BalanceBalance 1240 ml 1240 ml Constitutional: other (awake) Neck: other (tracheostomy) Respiratory: other (coarse breath sounds) Cardiovascular: regular rate and rhythm Extremities: other (Bilateral BKA) Results Result Diagram: 07/30/18 0540 07/30/18 0540 Results 24hrs Laboratory Tests Test 07/29/18 13:14 07/29/18 16:35 07/29/18 22:00 07/30/18 01:19 Bedside Glucose 156 130 124 117 Test 07/30/18 05:40 07/30/18 07:49 White Blood Count 8.7 Red Blood Count 2.92 L Hemoglobin 8.0 L Hematocrit 25.4 L Mean Corpuscular 87.0 Volume Mean Corpuscular 27.4 L Hemoglobin Mean Corpuscular 31.5 L Hemoglobin Concent Red Cell 19.5 H Distribution Width Platelet Count 36 L Mean Platelet 13.0 H Volume Immature 0.900 H Granulocytes % Neutrophils % Segmented 61 Neutrophils % (Manual) Band Neutrophils % 22 H (Manual) Lymphocytes % Lymphocytes % 14 L (Manual) Monocytes % Monocytes % 2 (Manual) Eosinophils % Eosinophils % 1 (Manual) Basophils % Nucleated Red Blood 2 H Cells % Immature 0.080 H Granulocytes # Neutrophils # Neutrophils # 5.5 (Manual) Band Neutrophils # 1.9 H Lymphocytes 1.2 (Manual) Lymphocytes # Monocytes # Monocytes # 0.1 L (Manual) Eosinophils # Basophils # Nucleated Red Blood Cells # Platelet Estimate SIG DECREASED Polychromasia 3+ Poikilocytosis 1+ Anisocytosis 2+ Microcytosis 2+ Spherocytes 1+ Sodium Level 133 L Potassium Level 4.7 Chloride Level 92 L Carbon Dioxide 36 H Level Anion Gap 5 Blood Urea Nitrogen 87 H Creatinine 0.75 Est Glomerular > 60 Filtrat Rate mL/min Glucose Level 123 Bedside Glucose 160 146 Calcium Level 8.0 L Medications Medication Current Medications IV Flush (NS 3 ml) 3 ml PER PROTOCOL IV ; Start 07/19/18 at 19:30 Ondansetron HCl (Zofran Inj) 4 mg Q6H PRN IV NAUSEA/VOMITING; Start 07/19/18 at 19:30 Morphine Sulfate (morphine) 2 mg Q4H PRN IV .PAIN 8-10 Last administered on 07/28/18at 23:03; Admin Dose 2 MG; Start 07/19/18 at 19:30 Ferrous Sulfate (Ferrous Sulfate (Ec)) 325 mg DAILY PO Last administered on 07/30/18at 09:28; Admin Dose 325 MG; Start 07/20/18 at 09:00; Stop 08/19/18 at 08:59 Nitroglycerin (Nitroglycerin (Sl Tab) 0.4 Mg) 1 tab [id number] PRN SL CHEST PAIN; Start 07/19/18 at 19:30 Miscellaneous Information (Pending [facility] Order For Wound Care) This patient pedro... PRN PRN XX WOUND CARE; Start 07/20/18 at 01:30 Insulin Aspart (Novolog Insulin Pen) NOVOLOG *MODERATE* ALGORI... Q4 SC Last administered on 07/30/18at 09:27; Admin Dose 2 UNIT; Start 07/20/18 at 17:00 Lorazepam (Ativan) 0.5 mg Q6 PRN IV AGITATION/ANXIETY Last administered on 07/30/18at 05:31; Admin Dose 0.5 MG; Start 07/22/18 at 17:00 Lansoprazole (Prevacid) 30 mg DAILY@06 GTB Last administered on 07/30/18 05:30; Admin Dose 30 MG; Start 07/25/18 at 06:00 Insulin Glargine (Lantus) 16 units BID SC Last administered on 07/30/18 09:27; Admin Dose 16 UNITS; Start 07/26/18 at 21:00 Acetaminophen (Tylenol Tab) 650 mg Q6H PRN GTB .PAIN 1-3 OR TEMP; Start 07/27/18 at 09:00 Acetaminophen (Tylenol Tab) 650 mg Q6H PRN GTB MILD TO MODERATE PAIN; Start 07/27/18 at 09:00 Ascorbic Acid (Vitamin C) 500 mg DAILY GTB Last administered on 07/30/18 09:28; Admin Dose 500 MG; Start 07/27/18 at 09:00 Atorvastatin Calcium (Lipitor) 20 mg QHS GTB Last administered on 07/29/18 21:57; Admin Dose 20 MG; Start 07/27/18 at 21:00 Duloxetine HCl (Cymbalta) 30 mg DAILY GTB Last administered on 07/30/18 09:28; Admin Dose 30 MG; Start 07/27/18 at 09:00 Gabapentin (Neurontin) 400 mg Q8 GTB Last administered on 07/30/18 05:26; Admin Dose 400 MG; Start 07/27/18 at 14:00 Hydralazine HCl (Apresoline) 50 mg Q8 GTB Last administered on 07/30/18 05:26; Admin Dose 50 MG; Start 07/27/18 at 14:00 Isosorbide Dinitrate (Isordil) 10 mg TID GTB Last administered on 07/30/18 09:43; Admin Dose 10 MG; Start 07/27/18 at 09:00 Metoprolol Tartrate (Lopressor) 50 mg Q8 GTB Last administered on 07/30/18 05:26; Admin Dose 50 MG; Start 07/27/18 at 14:00 Multivitamins (Multivitamin) 30 ml DAILY GTB Last administered on 07/30/18 09:28; Admin Dose 30 ML; Start 07/27/18 at 09:00 Ondansetron HCl (Zofran Tab) 4 mg Q4H PRN GTB NAUSEA AND/OR VOMITING; Start 07/27/18 at 09:00 Senna (Senokot) 1 tab BID GTB Last administered on 07/30/18at 09:28; Admin Dose 1 TAB; Start 07/27/18 at 09:00 Tramadol HCl (Ultram) 50 mg Q6H PRN GTB PAIN LEVEL 4-7; Start 07/27/18 at 09:00 Miscellaneous Information 1 ea NOTE XX ; Start 07/27/18 at 09:00 Glucose (Glutose) 15 gm Q15M PRN PO DECREASED GLUCOSE; Start 07/27/18 at 09:00 Glucose (Glutose) 22.5 gm Q15M PRN PO DECREASED GLUCOSE; Start 07/27/18 at 09:00 Dextrose (D50w Syringe) 25 ml Q15M PRN IV DECREASED GLUCOSE; Start 07/27/18 at 09:00 Dextrose (D50w Syringe) 50 ml Q15M PRN IV DECREASED GLUCOSE; Start 07/27/18 at 09:00 Glucagon (Glucagen) 1 mg Q15M PRN IM DECREASED GLUCOSE; Start 07/27/18 at 09:00 Glucose (Glutose) 15 gm Q15M PRN BUCCAL DECREASED GLUCOSE; Start 07/27/18 at 09:00 Insulin Human NPH (Humulin N) 18 unit DAILY@0900 SC Last administered on 07/30/18at 09:27; Admin Dose 18 UNIT; Start 07/29/18 at 09:00 Prednisone (Prednisone) 20 mg DAILY GTB Last administered on 07/30/18at 09:28; Admin Dose 20 MG; Start 07/30/18 at 09:00 PAMELLA ANDERSON MD July 30, 2018 10:18
--- NOTE | 2018-07-30 11:27 | CONS ---
Consult Date/Type/Reason Admit Date/Time Jul 19, 2018 at 18:40 Initial Consult Date 07/22/18 Type of Consult Pulmonary Requesting Provider: LES TRENT Date/Time of Note DATE: 07/30/18 TIME: 11:24 Subjective Patient appears comfortable this morning no respiratory distress Objective Vital Signs Date Temp Pulse Resp B/P (MAP) Pulse Ox O2 O2 Flow FiO2 Time Delivery Rate 07/30/18 64 09:14 07/30/18 16 96 35 08:43 07/30/18 99.4 105/51 07:49 (69) 07/28/18 Trach 15:44 Collar Intake and Output 07/29/18 07/29/18 07/30/18 1515:00 23:00 07:00 IntakeIntake Total 1240 ml 1240 ml BalanceBalance 1240 ml 1240 ml Exam NECK: Supple. Trach site is clean and intact. CARDIAC: S1, S2. No added sounds or murmurs. CHEST: Diminished air entry bilaterally. ABDOMEN: Soft, nontender. No guarding or rebound. EXTREMITIES: No cyanosis, clubbing or edema. NEUROLOGIC: Generalized weakness. Vent Setting Ventilator Support Mode: AC Fraction of Inspired Oxygen pe: 35 Positive End Expiratory Pressu: 5.0 Results/Medications Result Diagram: 07/30/18 0540 07/30/18 0540 Results 24 hrs Laboratory Tests Test 07/29/18 13:14 07/29/18 16:35 07/29/18 22:00 07/30/18 01:19 Bedside Glucose 156 130 124 117 Test 07/30/18 05:40 07/30/18 07:49 White Blood Count 8.7 Red Blood Count 2.92 L Hemoglobin 8.0 L Hematocrit 25.4 L Mean Corpuscular 87.0 Volume Mean Corpuscular 27.4 L Hemoglobin Mean Corpuscular 31.5 L Hemoglobin Concent Red Cell 19.5 H Distribution Width Platelet Count 36 L Mean Platelet 13.0 H Volume Immature 0.900 H Granulocytes % Neutrophils % Segmented 61 Neutrophils % (Manual) Band Neutrophils % 22 H (Manual) Lymphocytes % Lymphocytes % 14 L (Manual) Monocytes % Monocytes % 2 (Manual) Eosinophils % Eosinophils % 1 (Manual) Basophils % Nucleated Red Blood 2 H Cells % Immature 0.080 H Granulocytes # Neutrophils # Neutrophils # 5.5 (Manual) Band Neutrophils # 1.9 H Lymphocytes 1.2 (Manual) Lymphocytes # Monocytes # Monocytes # 0.1 L (Manual) Eosinophils # Basophils # Nucleated Red Blood Cells # Platelet Estimate SIG DECREASED Polychromasia 3+ Poikilocytosis 1+ Anisocytosis 2+ Microcytosis 2+ Spherocytes 1+ Sodium Level 133 L Potassium Level 4.7 Chloride Level 92 L Carbon Dioxide 36 H Level Anion Gap 5 Blood Urea Nitrogen 87 H Creatinine 0.75 Est Glomerular > 60 Filtrat Rate mL/min Glucose Level 123 Bedside Glucose 160 146 Calcium Level 8.0 L Medications Current Medications IV Flush (NS 3 ml) 3 ml PER PROTOCOL IV ; Start 07/19/18 at 19:30 Ondansetron HCl (Zofran Inj) 4 mg Q6H PRN IV NAUSEA/VOMITING; Start 07/19/18 at 19:30 Morphine Sulfate (morphine) 2 mg Q4H PRN IV .PAIN 8-10 Last administered on 07/28/18at 23:03; Admin Dose 2 MG; Start 07/19/18 at 19:30 Ferrous Sulfate (Ferrous Sulfate (Ec)) 325 mg DAILY PO Last administered on 07/30/18at 09:28; Admin Dose 325 MG; Start 07/20/18 at 09:00; Stop 08/19/18 at 08:59 Nitroglycerin (Nitroglycerin (Sl Tab) 0.4 Mg) 1 tab [id number] PRN SL CHEST PAIN; Start 07/19/18 at 19:30 Miscellaneous Information (Pending [facility] Order For Wound Care) This patient pedro... PRN PRN XX WOUND CARE; Start 07/20/18 at 01:30 Insulin Aspart (Novolog Insulin Pen) NOVOLOG *MODERATE* ALGORI... Q4 SC Last administered on 07/30/18at 09:27; Admin Dose 2 UNIT; Start 07/20/18 at 17:00 Lorazepam (Ativan) 0.5 mg Q6 PRN IV AGITATION/ANXIETY Last administered on 07/30/18at 05:31; Admin Dose 0.5 MG; Start 07/22/18 at 17:00 Lansoprazole (Prevacid) 30 mg DAILY@06 GTB Last administered on 07/30/18at 05:30; Admin Dose 30 MG; Start 07/25/18 at 06:00 Insulin Glargine (Lantus) 16 units BID SC Last administered on 07/30/18 09:27; Admin Dose 16 UNITS; Start 07/26/18 at 21:00 Acetaminophen (Tylenol Tab) 650 mg Q6H PRN GTB .PAIN 1-3 OR TEMP; Start 07/27/18 at 09:00 Acetaminophen (Tylenol Tab) 650 mg Q6H PRN GTB MILD TO MODERATE PAIN; Start 07/27/18 at 09:00 Ascorbic Acid (Vitamin C) 500 mg DAILY GTB Last administered on 07/30/18 09:28; Admin Dose 500 MG; Start 07/27/18 at 09:00 Atorvastatin Calcium (Lipitor) 20 mg QHS GTB Last administered on 07/29/18 21:57; Admin Dose 20 MG; Start 07/27/18 at 21:00 Duloxetine HCl (Cymbalta) 30 mg DAILY GTB Last administered on 07/30/18 09:28; Admin Dose 30 MG; Start 07/27/18 at 09:00 Gabapentin (Neurontin) 400 mg Q8 GTB Last administered on 07/30/18 05:26; Admin Dose 400 MG; Start 07/27/18 at 14:00 Hydralazine HCl (Apresoline) 50 mg Q8 GTB Last administered on 07/30/18 05:26; Admin Dose 50 MG; Start 07/27/18 at 14:00 Isosorbide Dinitrate (Isordil) 10 mg TID GTB Last administered on 07/30/18 09:43; Admin Dose 10 MG; Start 07/27/18 at 09:00 Metoprolol Tartrate (Lopressor) 50 mg Q8 GTB Last administered on 07/30/18 05:26; Admin Dose 50 MG; Start 07/27/18 at 14:00 Multivitamins (Multivitamin) 30 ml DAILY GTB Last administered on 07/30/18 09:28; Admin Dose 30 ML; Start 07/27/18 at 09:00 Ondansetron HCl (Zofran Tab) 4 mg Q4H PRN GTB NAUSEA AND/OR VOMITING; Start 07/27/18 at 09:00 Senna (Senokot) 1 tab BID GTB Last administered on 07/30/18 09:28; Admin Dose 1 TAB; Start 07/27/18 at 09:00 Tramadol HCl (Ultram) 50 mg Q6H PRN GTB PAIN LEVEL 4-7; Start 07/27/18 at 09:00 Miscellaneous Information 1 ea NOTE XX ; Start 07/27/18 at 09:00 Glucose (Glutose) 15 gm Q15M PRN PO DECREASED GLUCOSE; Start 07/27/18 at 09:00 Glucose (Glutose) 22.5 gm Q15M PRN PO DECREASED GLUCOSE; Start 07/27/18 at 09:00 Dextrose (D50w Syringe) 25 ml Q15M PRN IV DECREASED GLUCOSE; Start 07/27/18 at 09:00 Dextrose (D50w Syringe) 50 ml Q15M PRN IV DECREASED GLUCOSE; Start 07/27/18 at 09:00 Glucagon (Glucagen) 1 mg Q15M PRN IM DECREASED GLUCOSE; Start 07/27/18 at 09:00 Glucose (Glutose) 15 gm Q15M PRN BUCCAL DECREASED GLUCOSE; Start 07/27/18 at 09:00 Insulin Human NPH (Humulin N) 18 unit DAILY@0900 SC Last administered on 07/30/18at 09:27; Admin Dose 18 UNIT; Start 07/29/18 at 09:00 Prednisone (Prednisone) 20 mg DAILY GTB Last administered on 07/30/18at 09:28; Admin Dose 20 MG; Start 07/30/18 at 09:00 Assessment/Plan Hospital Course (Demo Recall) IMPRESSION AND PLAN: 1. Ventilator-dependent respiratory failure.Moderate right pleural effusion. 2. 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 3. Dysphagia with G-tube. 4. Anemia no active GI bleeding PLAN: 1. Continue hematology oncology recommendations for thrombocytopenia. 2. Hold off on thoracentesis until platelet count improves. Not urgent as patient is currently clinically stable. 3. Tube feeding as tolerated. 4. Cardiac recommendations. Consider transfer to [place] or senior care facility. AMOS CLEMENTS MD, [facility] July 30, 2018 11:27
--- NOTE | 2018-07-30 12:39 | CONS ---
Assessment/Plan Assessment/Plan Hospital Course (Demo Recall) #ITP -diagnosed during the last admission, he had response to steroids and bone marrow bx consistent with peripheral destruction -past labs reveal + TERESE, negative HIT ab -given his platelet count of only 3K at admission , he was started on Dexamethasone 40mg IV x 4 days to be followed by a slow prednisone steroid taper, as dex completed transitioned to Prednisone 1mg/kg daily with slow taper. plt count at 37K, today CBC ordered and pending continue prednisone 80 mg daily (started on saturday), will taper slowly as plt count allows -has been given IVIG 40 grams x 2 days -if patient does not respond will need to consider a course of Rituxan therapy, or other tx such as promacta or n plate Consultation Date/Type/Reason Admit Date/Time Jul 19, 2018 at 18:40 Initial Consult Date 07/22/18 Requesting Provider: LES TRENT Date/Time of Note DATE: 07/30/18 TIME: 12:39 24 HR Interval Summary Free Text/Dictation resting comfortablyu Exam/Review of Systems Exam Vitals Vital Signs Date Temp Pulse Resp B/P (MAP) Pulse Ox O2 O2 Flow FiO2 Time Delivery Rate 07/30/18 98.1 61 16 101/49 99 11:31 (66) 07/30/18 35 08:43 07/28/18 Trach 15:44 Collar Intake and Output 07/29/18 07/29/18 07/30/18 1515:00 23:00 07:00 IntakeIntake Total 1240 ml 1240 ml BalanceBalance 1240 ml 1240 ml Results Result Diagram: 07/30/18 0540 07/30/18 0540 Results 24hrs Laboratory Tests Test 07/29/18 13:14 07/29/18 16:35 07/29/18 22:00 07/30/18 01:19 Bedside Glucose 156 130 124 117 Test 07/30/18 05:40 07/30/18 07:49 White Blood Count 8.7 Red Blood Count 2.92 L Hemoglobin 8.0 L Hematocrit 25.4 L Mean Corpuscular 87.0 Volume Mean Corpuscular 27.4 L Hemoglobin Mean Corpuscular 31.5 L Hemoglobin Concent Red Cell 19.5 H Distribution Width Platelet Count 36 L Mean Platelet 13.0 H Volume Immature 0.900 H Granulocytes % Neutrophils % Segmented 61 Neutrophils % (Manual) Band Neutrophils % 22 H (Manual) Lymphocytes % Lymphocytes % 14 L (Manual) Monocytes % Monocytes % 2 (Manual) Eosinophils % Eosinophils % 1 (Manual) Basophils % Nucleated Red Blood 2 H Cells % Immature 0.080 H Granulocytes # Neutrophils # Neutrophils # 5.5 (Manual) Band Neutrophils # 1.9 H Lymphocytes 1.2 (Manual) Lymphocytes # Monocytes # Monocytes # 0.1 L (Manual) Eosinophils # Basophils # Nucleated Red Blood Cells # Platelet Estimate SIG DECREASED Polychromasia 3+ Poikilocytosis 1+ Anisocytosis 2+ Microcytosis 2+ Spherocytes 1+ Sodium Level 133 L Potassium Level 4.7 Chloride Level 92 L Carbon Dioxide 36 H Level Anion Gap 5 Blood Urea Nitrogen 87 H Creatinine 0.75 Est Glomerular > 60 Filtrat Rate mL/min Glucose Level 123 Bedside Glucose 160 146 Calcium Level 8.0 L Medications Medication Current Medications IV Flush (NS 3 ml) 3 ml PER PROTOCOL IV ; Start 07/19/18 at 19:30 Ondansetron HCl (Zofran Inj) 4 mg Q6H PRN IV NAUSEA/VOMITING; Start 07/19/18 at 19:30 Morphine Sulfate (morphine) 2 mg Q4H PRN IV .PAIN 8-10 Last administered on 07/28/18at 23:03; Admin Dose 2 MG; Start 07/19/18 at 19:30 Ferrous Sulfate (Ferrous Sulfate (Ec)) 325 mg DAILY PO Last administered on 07/30/18at 09:28; Admin Dose 325 MG; Start 07/20/18 at 09:00; Stop 08/19/18 at 08:59 Nitroglycerin (Nitroglycerin (Sl Tab) 0.4 Mg) 1 tab [id number] PRN SL CHEST PAIN; Start 07/19/18 at 19:30 Miscellaneous Information (Pending [facility] Order For Wound Care) This patient pedro... PRN PRN XX WOUND CARE; Start 07/20/18 at 01:30 Insulin Aspart (Novolog Insulin Pen) NOVOLOG *MODERATE* ALGORI... Q4 SC Last administered on 07/30/18at 09:27; Admin Dose 2 UNIT; Start 07/20/18 at 17:00 Lorazepam (Ativan) 0.5 mg Q6 PRN IV AGITATION/ANXIETY Last administered on 5/1/19at 05:31; Admin Dose 0.5 MG; Start 07/22/18 at 17:00 Lansoprazole (Prevacid) 30 mg DAILY@06 GTB Last administered on 07/30/18 05:30; Admin Dose 30 MG; Start 07/25/18 at 06:00 Insulin Glargine (Lantus) 16 units BID SC Last administered on 07/30/18 09:27; Admin Dose 16 UNITS; Start 07/26/18 at 21:00 Acetaminophen (Tylenol Tab) 650 mg Q6H PRN GTB .PAIN 1-3 OR TEMP; Start 07/27/18 at 09:00 Acetaminophen (Tylenol Tab) 650 mg Q6H PRN GTB MILD TO MODERATE PAIN; Start 07/27/18 at 09:00 Ascorbic Acid (Vitamin C) 500 mg DAILY GTB Last administered on 07/30/18 09:28; Admin Dose 500 MG; Start 07/27/18 at 09:00 Atorvastatin Calcium (Lipitor) 20 mg QHS GTB Last administered on 07/29/18 21:57; Admin Dose 20 MG; Start 07/27/18 at 21:00 Duloxetine HCl (Cymbalta) 30 mg DAILY GTB Last administered on 07/30/18 09:28; Admin Dose 30 MG; Start 07/27/18 at 09:00 Gabapentin (Neurontin) 400 mg Q8 GTB Last administered on 07/30/18 05:26; Admin Dose 400 MG; Start 07/27/18 at 14:00 Hydralazine HCl (Apresoline) 50 mg Q8 GTB Last administered on 07/30/18 05:26; Admin Dose 50 MG; Start 07/27/18 at 14:00 Isosorbide Dinitrate (Isordil) 10 mg TID GTB Last administered on 07/30/18 09:43; Admin Dose 10 MG; Start 07/27/18 at 09:00 Metoprolol Tartrate (Lopressor) 50 mg Q8 GTB Last administered on 07/30/18 05:26; Admin Dose 50 MG; Start 07/27/18 at 14:00 Multivitamins (Multivitamin) 30 ml DAILY GTB Last administered on 07/30/18 09:28; Admin Dose 30 ML; Start 07/27/18 at 09:00 Ondansetron HCl (Zofran Tab) 4 mg Q4H PRN GTB NAUSEA AND/OR VOMITING; Start 07/27/18 at 09:00 Senna (Senokot) 1 tab BID GTB Last administered on 07/30/18at 09:28; Admin Dose 1 TAB; Start 07/27/18 at 09:00 Tramadol HCl (Ultram) 50 mg Q6H PRN GTB PAIN LEVEL 4-7; Start 07/27/18 at 09:00 Miscellaneous Information 1 ea NOTE XX ; Start 07/27/18 at 09:00 Glucose (Glutose) 15 gm Q15M PRN PO DECREASED GLUCOSE; Start 07/27/18 at 09:00 Glucose (Glutose) 22.5 gm Q15M PRN PO DECREASED GLUCOSE; Start 07/27/18 at 09 :00 Dextrose (D50w Syringe) 25 ml Q15M PRN IV DECREASED GLUCOSE; Start 07/27/18 at 09:00 Dextrose (D50w Syringe) 50 ml Q15M PRN IV DECREASED GLUCOSE; Start 07/27/18 at 09:00 Glucagon (Glucagen) 1 mg Q15M PRN IM DECREASED GLUCOSE; Start 07/27/18 at 09:00 Glucose (Glutose) 15 gm Q15M PRN BUCCAL DECREASED GLUCOSE; Start 07/27/18 at 09:00 Insulin Human NPH (Humulin N) 18 unit DAILY@0900 SC Last administered on 07/30/18at 09:27; Admin Dose 18 UNIT; Start 07/29/18 at 09:00 Prednisone (Prednisone) 20 mg DAILY GTB Last administered on 07/30/18at 09:28; Admin Dose 20 MG; Start 07/30/18 at 09:00 BART MONTOYA July 30, 2018 12:39
[2018-07-30] MEDS: morphine 2 MG INJ IV PRN ×2 (14:09→21:19)
--- NOTE | 2018-07-30 14:38 | CONS ---
Assessment/Plan Assessment/Plan Hospital Course (Demo Recall) IMPRESSION: 1. Permanent pacemaker with proper function at this time, primarily AV pacing. No signs of dysfunction at this time. 2. History of paroxysmal atrial fibrillation and atrial flutter, had been off anticoagulation due to severe thrombocytopenia, has been started on anticoagulation, which was stopped at this time due to severe thrombocytopenia. 3. Hypertension. 4. Dyslipidemia. 5. History of aortic valve replacement, bioprosthesis in 06/2017. 6. History of coronary artery disease, status post coronary artery bypass graft surgery in 06/2017 using AHUJA to LAD. 7. 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 8. Diabetes mellitus. 9. Dysphagia, status post G-tube. 10. Chronic respiratory failure, status post tracheostomy. 11.Thrombocytopenia-mild improvement Recc: -Tele -Continue BB/hydralazine -Continue isordil -Holding antiplatelet/anticoagulation secondary to severe thrombocytopenia -Continue statin -Follow volume status closely with ongoing but improving increased BUN -Continue steroids Consultation Date/Type/Reason Admit Date/Time Jul 19, 2018 at 18:40 Initial Consult Date 07/22/18 Type of Consult Cardiology Reason for Consultation CHF/AVR Requesting Provider: LES TRENT Date/Time of Note DATE: 07/30/18 TIME: 14:35 Exam/Review of Systems Vital Signs Vitals Vital Signs Date Temp Pulse Resp B/P (MAP) Pulse Ox O2 O2 Flow FiO2 Time Delivery Rate 07/30/18 77 19 99 35 14:04 07/30/18 133/75 13:52 (94) 07/30/18 98.1 11:31 07/28/18 Trach 15:44 Collar Intake and Output 07/29/18 07/29/18 07/30/18 1414:59 22:59 06:59 IntakeIntake Total 1240 ml 1240 ml BalanceBalance 1240 ml 1240 ml Exam Exam Review of Systems: CONSTITUTIONAL: No fevers, chills. PULMONARY: trached CARDIOVASCULAR: No chest pain/palpitations GASTROINTESTINAL:s/p G tube GENITOURINARY: No hematuria/dysuria. MUSCULOSKELETAL: No myagias/arthalgias. PSYCHIATRIC: The patient denies depression. NEUROLOGIC: No weakness Constitutional: other (sleeping, arousable) Psych: no complaints Head: normocephalic ENMT: mucosa pink and moist Neck: supple, jvd Respiratory: clear to auscultation Cardiovascular: regular rate and rhythm Gastrointestinal: soft, non-tender Musculoskeletal: muscle weakness Extremities: edema (none) Neurological: other (No focal deficits) Labs Result Diagram: 07/30/18 0540 07/30/18 0540 Results 24hrs Laboratory Tests Test 07/29/18 16:35 07/29/18 22:00 07/30/18 01:19 07/30/18 05:40 Bedside Glucose 130 124 117 160 White Blood Count 8.7 Red Blood Count 2.92 L Hemoglobin 8.0 L Hematocrit 25.4 L Mean Corpuscular 87.0 Volume Mean Corpuscular 27.4 L Hemoglobin Mean Corpuscular 31.5 L Hemoglobin Concent Red Cell 19.5 H Distribution Width Platelet Count 36 L Mean Platelet 13.0 H Volume Immature 0.900 H Granulocytes % Neutrophils % Segmented 61 Neutrophils % (Manual) Band Neutrophils % 22 H (Manual) Lymphocytes % Lymphocytes % 14 L (Manual) Monocytes % Monocytes % 2 (Manual) Eosinophils % Eosinophils % 1 (Manual) Basophils % Nucleated Red Blood 2 H Cells % Immature 0.080 H Granulocytes # Neutrophils # Neutrophils # 5.5 (Manual) Band Neutrophils # 1.9 H Lymphocytes 1.2 (Manual) Lymphocytes # Monocytes # Monocytes # 0.1 L (Manual) Eosinophils # Basophils # Nucleated Red Blood Cells # Platelet Estimate SIG DECREASED Polychromasia 3+ Poikilocytosis 1+ Anisocytosis 2+ Microcytosis 2+ Spherocytes 1+ Sodium Level 133 L Potassium Level 4.7 Chloride Level 92 L Carbon Dioxide 36 H Level Anion Gap 5 Blood Urea Nitrogen 87 H Creatinine 0.75 Est Glomerular > 60 Filtrat Rate mL/min Glucose Level 123 Calcium Level 8.0 L Test 07/30/18 07:49 07/30/18 12:53 Bedside Glucose 146 196 Medications Medications Current Medications IV Flush (NS 3 ml) 3 ml PER PROTOCOL IV ; Start 07/19/18 at 19:30 Ondansetron HCl (Zofran Inj) 4 mg Q6H PRN IV NAUSEA/VOMITING; Start 07/19/18 at 19:30 Morphine Sulfate (morphine) 2 mg Q4H PRN IV .PAIN 8-10 Last administered on 07/30/18at 14:09; Admin Dose 2 MG; Start 07/19/18 at 19:30 Ferrous Sulfate (Ferrous Sulfate (Ec)) 325 mg DAILY PO Last administered on 07/30/18 09:28; Admin Dose 325 MG; Start 07/20/18 at 09:00; Stop 08/19/18 at 08:59 Nitroglycerin (Nitroglycerin (Sl Tab) 0.4 Mg) 1 tab [id number] PRN SL CHEST PAIN; Start 07/19/18 at 19:30 Miscellaneous Information (Pending [facility] Order For Wound Care) This patient pedro... PRN PRN XX WOUND CARE; Start 07/20/18 at 01:30 Insulin Aspart (Novolog Insulin Pen) NOVOLOG *MODERATE* ALGORI... Q4 SC Last administered on 07/30/18 12:55; Admin Dose 4 UNIT; Start 07/20/18 at 17:00 Lorazepam (Ativan) 0.5 mg Q6 PRN IV AGITATION/ANXIETY Last administered on 07/30/18 05:31; Admin Dose 0.5 MG; Start 07/22/18 at 17:00 Lansoprazole (Prevacid) 30 mg DAILY@06 GTB Last administered on 07/30/18 05:30; Admin Dose 30 MG; Start 07/25/18 at 06:00 Insulin Glargine (Lantus) 16 units BID SC Last administered on 07/30/18 09:27; Admin Dose 16 UNITS; Start 07/26/18 at 21:00 Acetaminophen (Tylenol Tab) 650 mg Q6H PRN GTB .PAIN 1-3 OR TEMP; Start at 09:00 Acetaminophen (Tylenol Tab) 650 mg Q6H PRN GTB MILD TO MODERATE PAIN; Start 07/27/18 at 09:00 Ascorbic Acid (Vitamin C) 500 mg DAILY GTB Last administered on 07/30/18 09:28; Admin Dose 500 MG; Start 07/27/18 at 09:00 Atorvastatin Calcium (Lipitor) 20 mg QHS GTB Last administered on 07/29/18at 21:57; Admin Dose 20 MG; Start 07/27/18 at 21:00 Duloxetine HCl (Cymbalta) 30 mg DAILY GTB Last administered on 07/30/18 09:28; Admin Dose 30 MG; Start 07/27/18 at 09:00 Gabapentin (Neurontin) 400 mg Q8 GTB Last administered on 07/30/18 13:52; Admin Dose 400 MG; Start 07/27/18 at 14:00 Hydralazine HCl (Apresoline) 50 mg Q8 GTB Last administered on 07/30/18 13:52; Admin Dose 50 MG; Start 07/27/18 at 14:00 Isosorbide Dinitrate (Isordil) 10 mg TID GTB Last administered on 07/30/18at 12 :55; Admin Dose 10 MG; Start 07/27/18 at 09:00 Metoprolol Tartrate (Lopressor) 50 mg Q8 GTB Last administered on 07/30/18 13:51; Admin Dose 50 MG; Start 07/27/18 at 14:00 Multivitamins (Multivitamin) 30 ml DAILY GTB Last administered on 07/30/18 09:28; Admin Dose 30 ML; Start 07/27/18 at 09:00 Ondansetron HCl (Zofran Tab) 4 mg Q4H PRN GTB NAUSEA AND/OR VOMITING; Start 07/27/18 at 09:00 Senna (Senokot) 1 tab BID GTB Last administered on 07/30/18 09:28; Admin Dose 1 TAB; Start 07/27/18 at 09:00 Tramadol HCl (Ultram) 50 mg Q6H PRN GTB PAIN LEVEL 4-7; Start 07/27/18 at 09:00 Miscellaneous Information 1 ea NOTE XX ; Start 07/27/18 at 09:00 Glucose (Glutose) 15 gm Q15M PRN PO DECREASED GLUCOSE; Start 07/27/18 at 09:00 Glucose (Glutose) 22.5 gm Q15M PRN PO DECREASED GLUCOSE; Start 07/27/18 at 09:00 Dextrose (D50w Syringe) 25 ml Q15M PRN IV DECREASED GLUCOSE; Start 07/27/18 at 09:00 Dextrose (D50w Syringe) 50 ml Q15M PRN IV DECREASED GLUCOSE; Start 07/27/18 at 09:00 Glucagon (Glucagen) 1 mg Q15M PRN IM DECREASED GLUCOSE; Start 07/27/18 at 09:00 Glucose (Glutose) 15 gm Q15M PRN BUCCAL DECREASED GLUCOSE; Start 07/27/18 at 09:00 Insulin Human NPH (Humulin N) 18 unit DAILY@0900 SC Last administered on 07/30/18at 09:27; Admin Dose 18 UNIT; Start 07/29/18 at 09:00 Prednisone (Prednisone) 20 mg DAILY GTB Last administered on 07/30/18at 09:28; Admin Dose 20 MG; Start 07/30/18 at 09:00 RODGER MIRELES July 30, 2018 14:38
[2018-07-30] MEDS: ATORVASTATIN 20 MG TAB GTB SCH (21:19)
[2018-07-31] VITALS (24 sets, daily range): BP systolic 112–134; BP diastolic 53–65; PULSE 60–75; RESP 14–25
[2018-07-31] MEDS: INSULIN ASPART [NOVOLOG] 3 ML PEN SC SCH ×4 (01:45→17:40)
[2018-07-31] MEDS: LANSOPRAZOLE 30 MG CAP GTB SCH (05:15)
[2018-07-31] MEDS: GABAPENTIN 400 MG CAP GTB SCH ×3 (05:15→21:44)
[2018-07-31] MEDS: METOPROLOL 50 MG TAB GTB SCH ×3 (05:16→21:45)
[2018-07-31] MEDS: INSULIN GLARGINE [LANTus] (100 UNITS/ML) SYG SC SCH ×2 (08:14→21:50)
[2018-07-31] MEDS: NPH, HUMAN INSULIN ISOPHANE 3ML VIAL SC SCH (08:15)
[2018-07-31] MEDS: ASCORBIC ACID 500 MG TAB GTB SCH (08:58)
[2018-07-31] MEDS: predniSONE 20 MG TAB GTB SCH (08:58)
[2018-07-31] MEDS: FERROUS SULFATE (EC) 325 MG TAB PO SCH (08:58)
[2018-07-31] MEDS: DULOXETINE 30 MG CAP DR GTB SCH (08:58)
[2018-07-31] MEDS: MULTIVITAMINS 30 ML CUP GTB SCH (08:58)
[2018-07-31] MEDS: ISOSORBIDE DINITRATE 10 MG TAB GTB SCH ×3 (08:58→21:45)
[2018-07-31] MEDS: SENNA TAB GTB SCH ×2 (08:58→21:44)
--- NOTE | 2018-07-31 11:19 | PN ---
Date/Time of Note Date/Time of Note DATE: 07/31/18 TIME: 11:18 Assessment/Plan VTE Prophylaxis Risk score (from Ns)>0 risk: 5 SCD applied (from [facility] [place]): No SCD contraindicated: other Pharmacological prophylaxis: other Pharm contraindication: other Lines/Catheters [facility]from [facility] Mid Line Central line still needed: Yes Urinary Cath still in place: No Assessment/Plan Assessment/Plan - Severe thrombocytopenia secondary to ITP; platelets 34 - s/p Decadron and IVIG. Pt continued on Prednisone. - per hematology consultation. -VDRF with tracheostomy on 02/19/18. - per pulmonary - Azotemia - per nephro consult - monitor renal functions -Hx of Atrial fibrillation and atrial flutter. - unable to tolerate anticoagulation due to severe thrombocytopenia. 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 BS elevated - Continue Lantus and NovoLog. - per Endo consult -Anemia,- Hgb 7.5 - monitor H&H. - Dysphagia -SP PEG placement on 02/19/18. -Colostomy -Bilateral BKA -Major depressive disorder -Hx of Stage III sacral decubitus ulcer Further recommendations based on clinical course. Plan of care discussed with Dr. Villatoro. Result Diagram: 07/31/18 0719 07/31/18 0538 Results 24hrs Laboratory Tests Test 07/30/18 12:53 07/30/18 17:16 07/30/18 21:17 07/31/18 01:40 Bedside Glucose 196 199 239 H 203 Test 07/31/18 05:02 07/31/18 05:38 07/31/18 07:19 07/31/18 08:06 Bedside Glucose 169 194 Sodium Level 135 Potassium Level 4.5 Chloride Level 92 L Carbon Dioxide Level 38 H Anion Gap 5 Blood Urea Nitrogen 77 H Creatinine 0.72 Est Glomerular Filtrat > 60 Rate mL/min Glucose Level 161 Calcium Level 8.5 White Blood Count 6.2 # Red Blood Count 2.79 L Hemoglobin 7.5 L Hematocrit 24.7 L Mean Corpuscular Volume 88.5 Mean Corpuscular 26.9 L Hemoglobin Mean Corpuscular 30.4 L Hemoglobin Concent Red Cell Distribution 19.3 H Width Platelet Count 34 L Mean Platelet Volume 14.1 H Immature Granulocytes % 1.000 H Neutrophils % 87.4 H Lymphocytes % 6.3 L Monocytes % 4.9 Eosinophils % 0.2 Basophils % 0.2 Nucleated Red Blood 1.8 H Cells % Immature Granulocytes # 0.060 H Neutrophils # 5.4 Lymphocytes # 0.4 L Monocytes # 0.3 Eosinophils # 0.0 Basophils # 0.0 Nucleated Red Blood 0.1 H Cells # Subjective 24 Hr Interval Summary Subjective hx not possible: pt non-verbal Exam/Review of Systems Exam Vitals Vital Signs Date Temp Pulse Resp B/P (MAP) Pulse Ox O2 O2 Flow FiO2 Time Delivery Rate 07/31/18 98.1 62 16 125/65 99 Mechanical 11:05 (85) Ventilator 07/31/18 35 09:44 Intake and Output 07/30/18 07/30/18 07/31/18 1515:00 23:00 07:00 IntakeIntake Total 1230 ml 1230 ml OutputOutput Total 300 ml BalanceBalance 1230 ml 930 ml Constitutional: non-verbal, frail Psych: nl mood/affect Eyes: nl lids, nl sclera ENMT: nl external ears & nose Neck: non-tender Respiratory: clear to auscultation, diminished breath sounds, other (bilateral at bases) Cardiovascular: nl pulses, other (s1s2) Gastrointestinal: soft, other (gt intact; colostomy intact) Musculoskeletal: muscle weakness Extremities: other (renae ka) Neurological: confused Skin: other (decub) Results Results 24hrs Laboratory Tests Test 07/30/18 12:53 07/30/18 17:16 07/30/18 21:17 07/31/18 01:40 Bedside Glucose 196 199 239 H 203 Test 07/31/18 05:02 07/31/18 05:38 07/31/18 07:19 07/31/18 08:06 Bedside Glucose 169 194 Sodium Level 135 Potassium Level 4.5 Chloride Level 92 L Carbon Dioxide Level 38 H Anion Gap 5 Blood Urea Nitrogen 77 H Creatinine 0.72 Est Glomerular Filtrat > 60 Rate mL/min Glucose Level 161 Calcium Level 8.5 White Blood Count 6.2 # Red Blood Count 2.79 L Hemoglobin 7.5 L Hematocrit 24.7 L Mean Corpuscular Volume 88.5 Mean Corpuscular 26.9 L Hemoglobin Mean Corpuscular 30.4 L Hemoglobin Concent Red Cell Distribution 19.3 H Width Platelet Count 34 L Mean Platelet Volume 14.1 H Immature Granulocytes % 1.000 H Neutrophils % 87.4 H Lymphocytes % 6.3 L Monocytes % 4.9 Eosinophils % 0.2 Basophils % 0.2 Nucleated Red Blood 1.8 H Cells % Immature Granulocytes # 0.060 H Neutrophils # 5.4 Lymphocytes # 0.4 L Monocytes # 0.3 Eosinophils # 0.0 Basophils # 0.0 Nucleated Red Blood 0.1 H Cells # Medications Medication Current Medications IV Flush (NS 3 ml) 3 ml PER PROTOCOL IV ; Start 07/19/18 at 19:30 Ondansetron HCl (Zofran Inj) 4 mg Q6H PRN IV NAUSEA/VOMITING; Start 07/19/18 at 19:30 Morphine Sulfate (morphine) 2 mg Q4H PRN IV .PAIN 8-10 Last administered on 07/30/18at 21:19; Admin Dose 2 MG; Start 07/19/18 at 19:30 Ferrous Sulfate (Ferrous Sulfate (Ec)) 325 mg DAILY PO Last administered on 07/31/18at 08:58; Admin Dose 325 MG; Start 07/20/18 at 09:00; Stop 08/19/18 at 08:59 Nitroglycerin (Nitroglycerin (Sl Tab) 0.4 Mg) 1 tab [id number] PRN SL CHEST PAIN; Start 07/19/18 at 19:30 Miscellaneous Information (Pending [facility] Order For Wound Care) This patient pedro... PRN PRN XX WOUND CARE; Start 07/20/18 at 01:30 Insulin Aspart (Novolog Insulin Pen) NOVOLOG *MODERATE* ALGORI... Q4 SC Last administered on 07/31/18 08:15; Admin Dose 4 UNIT; Start 07/20/18 at 17:00 Lorazepam (Ativan) 0.5 mg Q6 PRN IV AGITATION/ANXIETY Last administered on 07/30/18 05:31; Admin Dose 0.5 MG; Start 07/22/18 at 17:00 Lansoprazole (Prevacid) 30 mg DAILY@06 GTB Last administered on 07/31/18at 05:15; Admin Dose 30 MG; Start 07/25/18 at 06:00 Insulin Glargine (Lantus) 16 units BID SC Last administered on 07/31/18 08:14; Admin Dose 16 UNITS; Start 07/26/18 at 21:00 Acetaminophen (Tylenol Tab) 650 mg Q6H PRN GTB .PAIN 1-3 OR TEMP; Start 07/27/18 at 09:00 Acetaminophen (Tylenol Tab) 650 mg Q6H PRN GTB MILD TO MODERATE PAIN; Start 07/27/18 at 09:00 Ascorbic Acid (Vitamin C) 500 mg DAILY GTB Last administered on 07/31/18 08:58; Admin Dose 500 MG; Start 07/27/18 at 09:00 Atorvastatin Calcium (Lipitor) 20 mg QHS GTB Last administered on 07/30/18 21:1 9; Admin Dose 20 MG; Start 07/27/18 at 21:00 Duloxetine HCl (Cymbalta) 30 mg DAILY GTB Last administered on 07/31/18 08:58; Admin Dose 30 MG; Start 07/27/18 at 09:00 Gabapentin (Neurontin) 400 mg Q8 GTB Last administered on 07/31/18 05:15; Admin Dose 400 MG; Start 07/27/18 at 14:00 Hydralazine HCl (Apresoline) 50 mg Q8 GTB Last administered on 07/31/18 05:16; Admin Dose 50 MG; Start 07/27/18 at 14:00 Isosorbide Dinitrate (Isordil) 10 mg TID GTB Last administered on 07/31/18 08:58; Admin Dose 10 MG; Start 07/27/18 at 09:00 Metoprolol Tartrate (Lopressor) 50 mg Q8 GTB Last administered on 07/31/18 05:16; Admin Dose 50 MG; Start 07/27/18 at 14:00 Multivitamins (Multivitamin) 30 ml DAILY GTB Last administered on 07/31/18 08:58; Admin Dose 30 ML; Start 07/27/18 at 09:00 Ondansetron HCl (Zofran Tab) 4 mg Q4H PRN GTB NAUSEA AND/OR VOMITING; Start 07/27/18 at 09:00 Senna (Senokot) 1 tab BID GTB Last administered on 07/31/18at 08:58; Admin Dose 1 TAB; Start 07/27/18 at 09:00 Tramadol HCl (Ultram) 50 mg Q6H PRN GTB PAIN LEVEL 4-7; Start 07/27/18 at 09:00 Miscellaneous Information 1 ea NOTE XX ; Start 07/27/18 at 09:00 Glucose (Glutose) 15 gm Q15M PRN PO DECREASED GLUCOSE; Start 07/27/18 at 09:00 Glucose (Glutose) 22.5 gm Q15M PRN PO DECREASED GLUCOSE; Start 07/27/18 at 09:00 Dextrose (D50w Syringe) 25 ml Q15M PRN IV DECREASED GLUCOSE; Start 07/27/18 at 09:00 Dextrose (D50w Syringe) 50 ml Q15M PRN IV DECREASED GLUCOSE; Start 07/27/18 at 09:00 Glucagon (Glucagen) 1 mg Q15M PRN IM DECREASED GLUCOSE; Start 07/27/18 at 09:00 Glucose (Glutose) 15 gm Q15M PRN BUCCAL DECREASED GLUCOSE; Start 07/27/18 at 09:00 Insulin Human NPH (Humulin N) 18 unit DAILY@0900 SC Last administered on 07/31/18at 08:15; Admin Dose 18 UNIT; Start 07/29/18 at 09:00 Prednisone (Prednisone) 20 mg DAILY GTB Last administered on 07/31/18at 08:58; Admin Dose 20 MG; Start 07/30/18 at 09:00 LES TRENT July 31, 2018 11:19
--- NOTE | 2018-07-31 12:13 | CONS ---
Assessment/Plan Assessment/Plan Assessment/Plan (Daily) Ventilator setting; AC of 14, tidal volume 500, PEEP of 5, 35% FiO2. Assessment and recommendations; 1. 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 2. CHF with pleural effusions. 3. History of cardiac arrhythmia. 4. Prior CABG. 5. History of colostomy. 6. History of bilateral below-knee amputations. Continue with supportive care. Consider discharge to rehab center. Consultation Date/Type/Reason Admit Date/Time Jul 19, 2018 at 18:40 Initial Consult Date 07/24/18 Type of Consult Pulmonary Reason for Consultation Patient's condition is stable. Remains awake and fairly responsive. Has remained hemodynamically stable. General exam; elderly male, on ventilator via tracheostomy currently in no distress. Requesting Provider: LES TRENT Date/Time of Note DATE: 07/31/18 TIME: 12:11 Exam/Review of Systems Exam Vitals Vital Signs Date Temp Pulse Resp B/P (MAP) Pulse Ox O2 O2 Flow FiO2 Time Delivery Rate 07/31/18 73 25 100 35 11:36 07/31/18 98.1 125/65 Mechanical 11:05 (85) Ventilator Intake and Output 07/30/18 07/30/18 07/31/18 1515:00 23:00 07:00 IntakeIntake Total 1230 ml 1230 ml OutputOutput Total 300 ml BalanceBalance 1230 ml 930 ml Exam H EENT exam; supple neck, positive JVD. No lymphadenopathy. Midline trachea. No thyromegaly. Tracheostomy in place. Patient is edentulous. Chest exam; diminished breath sounds bilaterally. There is a well-healed sterna l scar. Pacemaker in place. S1-S2 audible, no murmurs. Abdomen exam; soft, G-tube placed. Colostomy in place. Bowel sounds audible. Extremity exam; bilateral below-knee amputation. 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 Results Result Diagram: 07/31/18 0719 07/31/18 0538 Results 24hrs Laboratory Tests Test 07/30/18 12:53 07/30/18 17:16 07/30/18 21:17 07/31/18 01:40 Bedside Glucose 196 199 239 H 203 Test 07/31/18 05:02 07/31/18 05:38 07/31/18 07:19 07/31/18 08:06 Bedside Glucose 169 194 Sodium Level 135 Potassium Level 4.5 Chloride Level 92 L Carbon Dioxide Level 38 H Anion Gap 5 Blood Urea Nitrogen 77 H Creatinine 0.72 Est Glomerular Filtrat > 60 Rate mL/min Glucose Level 161 Calcium Level 8.5 White Blood Count 6.2 # Red Blood Count 2.79 L Hemoglobin 7.5 L Hematocrit 24.7 L Mean Corpuscular Volume 88.5 Mean Corpuscular 26.9 L Hemoglobin Mean Corpuscular 30.4 L Hemoglobin Concent Red Cell Distribution 19.3 H Width Platelet Count 34 L Mean Platelet Volume 14.1 H Immature Granulocytes % 1.000 H Neutrophils % 87.4 H Lymphocytes % 6.3 L Monocytes % 4.9 Eosinophils % 0.2 Basophils % 0.2 Nucleated Red Blood 1.8 H Cells % Immature Granulocytes # 0.060 H Neutrophils # 5.4 Lymphocytes # 0.4 L Monocytes # 0.3 Eosinophils # 0.0 Basophils # 0.0 Nucleated Red Blood 0.1 H Cells # Medications Medication Current Medications IV Flush (NS 3 ml) 3 ml PER PROTOCOL IV ; Start 07/19/18 at 19:30 Ondansetron HCl (Zofran Inj) 4 mg Q6H PRN IV NAUSEA/VOMITING; Start 07/19/18 at 19:30 Morphine Sulfate (morphine) 2 mg Q4H PRN IV .PAIN 8-10 Last administered on 07/30at 21:19; Admin Dose 2 MG; Start 07/19/18 at 19:30 Ferrous Sulfate (Ferrous Sulfate (Ec)) 325 mg DAILY PO Last administered on 07/31/18at 08:58; Admin Dose 325 MG; Start 07/20/18 at 09:00; Stop 08/19/18 at 08:59 Nitroglycerin (Nitroglycerin (Sl Tab) 0.4 Mg) 1 tab [id number] PRN SL CHEST PAIN; Start 07/19/18 at 19:30 Miscellaneous Information [facility] This patient pedro... PRN PRN XX WOUND CARE; Start 07/20/18 at 01:30 Insulin Aspart (Novolog Insulin Pen) NOVOLOG *MODERATE* ALGORI... Q4 SC Last administered on 07/31/18at 08:15; Admin Dose 4 UNIT; Start 07/20/18 at 17:00 Lorazepam (Ativan) 0.5 mg Q6 PRN IV AGITATION/ANXIETY Last administered on 07/30/18 05:31; Admin Dose 0.5 MG; Start 07/22/18 at 17:00 Lansoprazole (Prevacid) 30 mg DAILY@06 GTB Last administered on 07/31/18 05:15; Admin Dose 30 MG; Start 07/25/18 at 06:00 Insulin Glargine (Lantus) 16 units BID SC Last administered on 07/31/18 08:14; Admin Dose 16 UNITS; Start 07/26/18 at 21:00 Acetaminophen (Tylenol Tab) 650 mg Q6H PRN GTB .PAIN 1-3 OR TEMP; Start 07/27/18 at 09:00 Acetaminophen (Tylenol Tab) 650 mg Q6H PRN GTB MILD TO MODERATE PAIN; Start 07/27/18 at 09:00 Ascorbic Acid (Vitamin C) 500 mg DAILY GTB Last administered on 07/31/18 08:58; Admin Dose 500 MG; Start 07/27/18 at 09:00 Atorvastatin Calcium (Lipitor) 20 mg QHS GTB Last administered on 07/30/18 21:19; Admin Dose 20 MG; Start 07/27/18 at 21:00 Duloxetine HCl (Cymbalta) 30 mg DAILY GTB Last administered on 07/31/18 08:58; Admin Dose 30 MG; Start 07/27/18 at 09:00 Gabapentin (Neurontin) 400 mg Q8 GTB Last administered on 07/31/18 05:15; Admin Dose 400 MG; Start 07/27/18 at 14:00 Hydralazine HCl (Apresoline) 50 mg Q8 GTB Last administered on 07/31/18 05:16; Admin Dose 50 MG; Start 07/27/18 at 14:00 Isosorbide Dinitrate (Isordil) 10 mg TID GTB Last administered on 07/31/18 08:58; Admin Dose 10 MG; Start 07/27/18 at 09:00 Metoprolol Tartrate (Lopressor) 50 mg Q8 GTB Last administered on 07/31/18 05:16; Admin Dose 50 MG; Start 07/27/18 at 14:00 Multivitamins (Multivitamin) 30 ml DAILY GTB Last administered on 07/31/18 08:58; Admin Dose 30 ML; Start 07/27/18 at 09:00 Ondansetron HCl (Zofran Tab) 4 mg Q4H PRN GTB NAUSEA AND/OR VOMITING; Start 07/27/18 at 09:00 Senna (Senokot) 1 tab BID GTB Last administered on 07/31/18 08:58; Admin Dose 1 TAB; Start 07/27/18 at 09:00 Tramadol HCl (Ultram) 50 mg Q6H PRN GTB PAIN LEVEL 4-7; Start 07/27/18 at 09:00 Miscellaneous Information 1 ea NOTE XX ; Start 07/27/18 at 09:00 Glucose (Glutose) 15 gm Q15M PRN PO DECREASED GLUCOSE; Start 07/27/18 at 09:00 Glucose (Glutose) 22.5 gm Q15M PRN PO DECREASED GLUCOSE; Start 07/27/18 at 09:00 Dextrose (D50w Syringe) 25 ml Q15M PRN IV DECREASED GLUCOSE; Start 07/27/18 at 09:00 Dextrose (D50w Syringe) 50 ml Q15M PRN IV DECREASED GLUCOSE; Start 07/27/18 at 09:00 Glucagon (Glucagen) 1 mg Q15M PRN IM DECREASED GLUCOSE; Start 07/27/18 at 09:00 Glucose (Glutose) 15 gm Q15M PRN BUCCAL DECREASED GLUCOSE; Start 07/27/18 at 09:00 Insulin Human NPH (Humulin N) 18 unit DAILY@0900 SC Last administered on 07/31/18 08:15; Admin Dose 18 UNIT; Start 07/29/18 at 09:00 Prednisone (Prednisone) 20 mg DAILY GTB Last administered on 07/31/18 08:58; Admin Dose 20 MG; Start 07/30/18 at 09:00 MESHA GERARD July 31, 2018 12:13
--- NOTE | 2018-07-31 12:14 | CONS ---
Assessment/Plan Assessment/Plan Hospital Course (Demo Recall) IMPRESSION: 1. Permanent pacemaker with proper function at this time, primarily AV pacing. No signs of dysfunction at this time. 2. History of paroxysmal atrial fibrillation and atrial flutter, had been off anticoagulation due to severe thrombocytopenia, has been started on anticoagulation, which was stopped at this time due to severe thrombocytopenia. 3. Hypertension. 4. Dyslipidemia. 5. History of aortic valve replacement, bioprosthesis in 06/2017. 6. History of coronary artery disease, status post coronary artery bypass graft surgery in 06/2017 using AHUJA to LAD. 7. 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 8. Diabetes mellitus. 9. Dysphagia, status post G-tube. 10. Chronic respiratory failure, status post tracheostomy. 11.Thrombocytopenia-still severely depressed Recc: -Tele -Continue BB/hydralazine -Continue isordil -Holding antiplatelet/anticoagulation secondary to severe thrombocytopenia -Continue statin -Follow volume status closely with ongoing but improving increased BUN -Continue steroids/IVIG and follow plt count closely Consultation Date/Type/Reason Admit Date/Time Jul 19, 2018 at 18:40 Initial Consult Date 07/22/18 Type of Consult Cardiology Reason for Consultation CHF Requesting Provider: LES TRENT Date/Time of Note DATE: 07/31/18 TIME: 12:11 Exam/Review of Systems Vital Signs Vitals Vital Signs Date Temp Pulse Resp B/P (MAP) Pulse Ox O2 O2 Flow FiO2 Time Delivery Rate 07/31/18 73 25 100 35 11:36 07/31/18 98.1 125/65 Mechanical 11:05 (85) Ventilator Intake and Output 07/30/18 07/30/18 07/31/18 1515:00 23:00 07:00 IntakeIntake Total 1230 ml 1230 ml OutputOutput Total 300 ml BalanceBalance 1230 ml 930 ml Exam Exam Review of Systems: CONSTITUTIONAL: No fevers, chills. PULMONARY: No sob CARDIOVASCULAR: No chest pain/palpitations GASTROINTESTINAL: No nausea/vomiting. GENITOURINARY: No hematuria/dysuria. MUSCULOSKELETAL: No myagias/arthalgias. PSYCHIATRIC: The patient denies depression. NEUROLOGIC: No weakness Constitutional: other (sleeping) Head: normocephalic ENMT: other (trached) Neck: supple, jvd (9 cm water) Respiratory: diminished breath sounds (at bases/B) Cardiovascular: regular rate and rhythm Gastrointestinal: soft, non-tender Musculoskeletal: muscle weakness (genertalized) Extremities: other (bilateral LE amputation) Neurological: other (No focal deficits) Labs Result Diagram: 07/31/18 0719 07/31/18 0538 Results 24hrs Laboratory Tests Test 07/30/18 12:53 07/30/18 17:16 07/30/18 21:17 07/31/18 01:40 Bedside Glucose 196 199 239 H 203 Test 07/31/18 05:02 07/31/18 05:38 07/31/18 07:19 07/31/18 08:06 Bedside Glucose 169 194 Sodium Level 135 Potassium Level 4.5 Chloride Level 92 L Carbon Dioxide Level 38 H Anion Gap 5 Blood Urea Nitrogen 77 H Creatinine 0.72 Est Glomerular Filtrat > 60 Rate mL/min Glucose Level 161 Calcium Level 8.5 White Blood Count 6.2 # Red Blood Count 2.79 L Hemoglobin 7.5 L Hematocrit 24.7 L Mean Corpuscular Volume 88.5 Mean Corpuscular 26.9 L Hemoglobin Mean Corpuscular 30.4 L Hemoglobin Concent Red Cell Distribution 19.3 H Width Platelet Count 34 L Mean Platelet Volume 14.1 H Immature Granulocytes % 1.000 H Neutrophils % 87.4 H Lymphocytes % 6.3 L Monocytes % 4.9 Eosinophils % 0.2 Basophils % 0.2 Nucleated Red Blood 1.8 H Cells % Immature Granulocytes # 0.060 H Neutrophils # 5.4 Lymphocytes # 0.4 L Monocytes # 0.3 Eosinophils # 0.0 Basophils # 0.0 Nucleated Red Blood 0.1 H Cells # Medications Medications Current Medications IV Flush (NS 3 ml) 3 ml PER PROTOCOL IV ; Start 07/19/18 at 19:30 Ondansetron HCl (Zofran Inj) 4 mg Q6H PRN IV NAUSEA/VOMITING; Start 07/19/18 at 19:30 Morphine Sulfate (morphine) 2 mg Q4H PRN IV .PAIN 8-10 Last administered on 07/30/18at 21:19; Admin Dose 2 MG; Start 07/19/18 at 19:30 Ferrous Sulfate (Ferrous Sulfate (Ec)) 325 mg DAILY PO Last administered on 07/31at 08:58; Admin Dose 325 MG; Start 07/20/18 at 09:00; Stop 08/19/18 at 08:59 Nitroglycerin (Nitroglycerin (Sl Tab) 0.4 Mg) 1 tab [id number] PRN SL CHEST PAIN; Start 07/19/18 at 19:30 [facility] This patient pedro... PRN PRN XX WOUND CARE; Start 07/20/18 at 01:30 Insulin Aspart (Novolog Insulin Pen) NOVOLOG *MODERATE* ALGORI... Q4 SC Last administered on 07/31/18 08:15; Admin Dose 4 UNIT; Start 07/20/18 at 17:00 Lorazepam (Ativan) 0.5 mg Q6 PRN IV AGITATION/ANXIETY Last administered on 07/30/18 05:31; Admin Dose 0.5 MG; Start 07/22/18 at 17:00 Lansoprazole (Prevacid) 30 mg DAILY@06 GTB Last administered on 07/31/18 05:15; Admin Dose 30 MG; Start 07/25/18 at 06:00 Insulin Glargine (Lantus) 16 units BID SC Last administered on 07/31/18 08:14; Admin Dose 16 UNITS; Start 07/26/18 at 21:00 Acetaminophen (Tylenol Tab) 650 mg Q6H PRN GTB .PAIN 1-3 OR TEMP; Start 07/27/18 at 09:00 Acetaminophen (Tylenol Tab) 650 mg Q6H PRN GTB MILD TO MODERATE PAIN; Start 07/27/18 at 09:00 Ascorbic Acid (Vitamin C) 500 mg DAILY GTB Last administered on 07/31/18at 08:58; Admin Dose 500 MG; Start 07/27/18 at 09:00 Atorvastatin Calcium (Lipitor) 20 mg QHS GTB Last administered on 07/30/18 21:19; Admin Dose 20 MG; Start 07/27/18 at 21:00 Duloxetine HCl (Cymbalta) 30 mg DAILY GTB Last administered on 07/31/18 08:58; Admin Dose 30 MG; Start 07/27/18 at 09:00 Gabapentin (Neurontin) 400 mg Q8 GTB Last administered on 07/31/18 05:15; Admin Dose 400 MG; Start 07/27/18 at 14:00 Hydralazine HCl (Apresoline) 50 mg Q8 GTB Last administered on 07/31/18 05:16; Admin Dose 50 MG; Start 07/27/18 at 14:00 Isosorbide Dinitrate (Isordil) 10 mg TID GTB Last administered on 07/31/18 08:58; Admin Dose 10 MG; Start 07/27/18 at 09:00 Metoprolol Tartrate (Lopressor) 50 mg Q8 GTB Last administered on 07/31/18 05:16; Admin Dose 50 MG; Start 07/27/18 at 14:00 Multivitamins (Multivitamin) 30 ml DAILY GTB Last administered on 07/31/18 08:58; Admin Dose 30 ML; Start 07/27/18 at 09:00 Ondansetron HCl (Zofran Tab) 4 mg Q4H PRN GTB NAUSEA AND/OR VOMITING; Start 07/27/18 at 09:00 Senna (Senokot) 1 tab BID GTB Last administered on 07/31/18 08:58; Admin Dose 1 TAB; Start 07/27/18 at 09:00 Tramadol HCl (Ultram) 50 mg Q6H PRN GTB PAIN LEVEL 4-7; Start 07/27/18 at 09:00 Miscellaneous Information 1 ea NOTE XX ; Start 07/27/18 at 09:00 Glucose (Glutose) 15 gm Q15M PRN PO DECREASED GLUCOSE; Start 07/27/18 at 09:00 Glucose (Glutose) 22.5 gm Q15M PRN PO DECREASED GLUCOSE; Start 07/27/18 at 09:00 Dextrose (D50w Syringe) 25 ml Q15M PRN IV DECREASED GLUCOSE; Start 07/27/18 at 09:00 Dextrose (D50w Syringe) 50 ml Q15M PRN IV DECREASED GLUCOSE; Start 07/27/18 at 09:00 Glucagon (Glucagen) 1 mg Q15M PRN IM DECREASED GLUCOSE; Start 07/27/18 at 09:00 Glucose (Glutose) 15 gm Q15M PRN BUCCAL DECREASED GLUCOSE; Start 07/27/18 at 09:00 Insulin Human NPH (Humulin N) 18 unit DAILY@0900 SC Last administered on 07/31/18 08:15; Admin Dose 18 UNIT; Start 07/29/18 at 09:00 Prednisone (Prednisone) 20 mg DAILY GTB Last administered on 07/31/18at 08:58; Admin Dose 20 MG; Start 07/30/18 at 09:00 RODGER MIRELES July 31, 2018 12:14
--- NOTE | 2018-07-31 18:08 | CONS ---
Assessment/Plan Assessment/Plan Hospital Course (Demo Recall) #ITP -platelets ok at 34 today -diagnosed during the last admission, he had response to steroids and bone marrow bx consistent with peripheral destruction -past labs reveal + TERESE, negative HIT ab -given his platelet count of only 3K , he was started on Dexamethasone 40mg IV x 4 days to be followed by a slow prednisone steroid taper, as dex completed transitioned to Prednisone 1mg/kg daily with slow taper. plt count at 47K, today CBC ordered and pending continue prednisone 80 mg daily (started on Saturday), will taper slowly as plt count allows -has been given IVIG 40 grams x 2 days -if patient does not respond will need to consider a course of Rituxan therapy, or other tx such as promacta or n plate Consultation Date/Type/Reason Admit Date/Time Jul 19, 2018 at 18:40 Initial Consult Date 07/24/18 Type of Consult hematology Reason for Consultation ITP Requesting Provider: LES TRENT Date/Time of Note DATE: 07/31/18 TIME: 18:06 24 HR Interval Summary Free Text/Dictation no acute overnight events Exam/Review of Systems Exam Vitals Vital Signs Date Temp Pulse Resp B/P (MAP) Pulse Ox O2 O2 Flow FiO2 Time Delivery Rate 07/31/18 65 14 98 35 17:43 07/31/18 98.3 112/61 Mechanical 15:19 (78) Ventilator Intake and Output 07/30/18 07/30/18 07/31/18 1515:00 23:00 07:00 IntakeIntake Total 1230 ml 1230 ml OutputOutput Total 300 ml BalanceBalance 1230 ml 930 ml Constitutional: non-verbal Psych: confusion Head: normocephalic ENMT: other Neck: other (trach in place) Respiratory: clear to auscultation Cardiovascular: regular rate and rhythm Gastrointestinal: soft Musculoskeletal: nl extremities to inspection Results Result Diagram: 07/31/18 0719 07/31/18 0538 Results 24hrs Laboratory Tests Test 07/30/18 21:17 07/31/18 01:40 07/31/18 05:02 07/31/18 05:38 Bedside Glucose 239 H 203 169 Sodium Level 135 Potassium Level 4.5 Chloride Level 92 L Carbon Dioxide Level 38 H Anion Gap 5 Blood Urea Nitrogen 77 H Creatinine 0.72 Est Glomerular Filtrat > 60 Rate mL/min Glucose Level 161 Calcium Level 8.5 Test 07/31/18 07:19 07/31/18 08:06 07/31/18 17:30 White Blood Count 6.2 # Red Blood Count 2.79 L Hemoglobin 7.5 L Hematocrit 24.7 L Mean Corpuscular Volume 88.5 Mean Corpuscular 26.9 L Hemoglobin Mean Corpuscular 30.4 L Hemoglobin Concent Red Cell Distribution 19.3 H Width Platelet Count 34 L Mean Platelet Volume 14.1 H Immature Granulocytes % 1.000 H Neutrophils % 87.4 H Lymphocytes % 6.3 L Monocytes % 4.9 Eosinophils % 0.2 Basophils % 0.2 Nucleated Red Blood 1.8 H Cells % Immature Granulocytes # 0.060 H Neutrophils # 5.4 Lymphocytes # 0.4 L Monocytes # 0.3 Eosinophils # 0.0 Basophils # 0.0 Nucleated Red Blood 0.1 H Cells # Bedside Glucose 194 311 H Medications Medication Current Medications IV Flush (NS 3 ml) 3 ml PER PROTOCOL IV ; Start 07/19/18 at 19:30 Ondansetron HCl (Zofran Inj) 4 mg Q6H PRN IV NAUSEA/VOMITING; Start 07/19/18 at 19:30 Morphine Sulfate (morphine) 2 mg Q4H PRN IV .PAIN 8-10 Last administered on 07/30/18at 21:19; Admin Dose 2 MG; Start 07/19/18 at 19:30 Ferrous Sulfate (Ferrous Sulfate (Ec)) 325 mg DAILY PO Last administered on 07/31/18at 08:58; Admin Dose 325 MG; Start 07/20/18 at 09:00; Stop 08/19/18 at 08:59 Nitroglycerin (Nitroglycerin (Sl Tab) 0.4 Mg) 1 tab [id number] PRN SL CHEST PAIN; Start 07/19/18 at 19:30 Miscellaneous Information [facility] This patient pedro... PRN PRN XX WOUND CARE; Start 07/20/18 at 01:30 Lorazepam (Ativan) 0.5 mg Q6 PRN IV AGITATION/ANXIETY Last administered on 07/30/18at 05:31; Admin Dose 0.5 MG; Start 07/22/18 at 17:00 Lansoprazole (Prevacid) 30 mg DAILY@06 GTB Last administered on 07/31/18 05:15; Admin Dose 30 MG; Start 07/25/18 at 06:00 Insulin Glargine (Lantus) 16 units BID SC Last administered on 07/31/18 08:14; Admin Dose 16 UNITS; Start 07/26/18 at 21:00 Acetaminophen (Tylenol Tab) 650 mg Q6H PRN GTB .PAIN 1-3 OR TEMP; Start 07/27/18 at 09:00 Acetaminophen (Tylenol Tab) 650 mg Q6H PRN GTB MILD TO MODERATE PAIN; Start 07/27/18 at 09:00 Ascorbic Acid (Vitamin C) 500 mg DAILY GTB Last administered on 07/31/18 08:58; Admin Dose 500 MG; Start 07/27/18 at 09:00 Atorvastatin Calcium (Lipitor) 20 mg QHS GTB Last administered on 07/30/18 21:19; Admin Dose 20 MG; Start 07/27/18 at 21:00 Duloxetine HCl (Cymbalta) 30 mg DAILY GTB Last administered on 07/31/18 08:58; Admin Dose 30 MG; Start 07/27/18 at 09:00 Gabapentin (Neurontin) 400 mg Q8 GTB Last administered on 07/31/18 13:17; Admin Dose 400 MG; Start 07/27/18 at 14:00 Hydralazine HCl (Apresoline) 50 mg Q8 GTB Last administered on 07/31/18 13:17; Admin Dose 50 MG; Start 07/27/18 at 14:00 Isosorbide Dinitrate (Isordil) 10 mg TID GTB Last administered on 07/31/18 13:17; Admin Dose 10 MG; Start 07/27/18 at 09:00 Metoprolol Tartrate (Lopressor) 50 mg Q8 GTB Last administered on 07/31/18 13:17; Admin Dose 50 MG; Start 07/27/18 at 14:00 Multivitamins (Multivitamin) 30 ml DAILY GTB Last administered on 07/31/18 08:58; Admin Dose 30 ML; Start 07/27/18 at 09:00 Ondansetron HCl (Zofran Tab) 4 mg Q4H PRN GTB NAUSEA AND/OR VOMITING; Start 07/27/18 at 09:00 Senna (Senokot) 1 tab BID GTB Last administered on 07/31/18 08:58; Admin Dose 1 TAB; Start 07/27/18 at 09:00 Tramadol HCl (Ultram) 50 mg Q6H PRN GTB PAIN LEVEL 4-7; Start 07/27/18 at 09:00 Miscellaneous Information 1 ea NOTE XX ; Start 07/27/18 at 09:00 Glucose (Glutose) 15 gm Q15M PRN PO DECREASED GLUCOSE; Start 07/27/18 at 09:00 Glucose (Glutose) 22.5 gm Q15M PRN PO DECREASED GLUCOSE; Start 07/27/18 at 09:00 Dextrose (D50w Syringe) 25 ml Q15M PRN IV DECREASED GLUCOSE; Start 07/27/18 at 09:00 Dextrose (D50w Syringe) 50 ml Q15M PRN IV DECREASED GLUCOSE; Start 07/27/18 at 09:00 Glucagon (Glucagen) 1 mg Q15M PRN IM DECREASED GLUCOSE; Start 07/27/18 at 09:00 Glucose (Glutose) 15 gm Q15M PRN BUCCAL DECREASED GLUCOSE; Start 07/27/18 at 09:00 Insulin Human NPH (Humulin N) 18 unit DAILY@0900 SC Last administered on 07/31/18at 08:15; Admin Dose 18 UNIT; Start 07/29/18 at 09:00 Prednisone (Prednisone) 20 mg DAILY GTB Last administered on 07/31/18at 08:58; Admin Dose 20 MG; Start 07/30/18 at 09:00 Insulin Aspart (Novolog Insulin Pen) NOVOLOG *MODERATE* ALGORI... Q6 SC Last administered on 07/31/18at 17:40; Admin Dose 10 UNIT; Start 07/31/18 at 18:00 DANIELA RAPP M.D. July 31, 2018 18:08
--- NOTE | 2018-07-31 18:44 | CONS ---
Assessment/Plan Assessment/Plan Assessment/Plan (Daily) 1. Uremia with BUN rising to 100, Cr normal 3. ITP 4. severe thrombocytopenia 5. accelerated HTN 6. VDRF s/p Tracheostomy 7. Dysphagia S/p G tube Plan: Continue Hydralazine 50mg PO Q8 hr and MTP 50mg pO Q 8 hr Na 133, BUN/Cr 77/0.7 BP stable - prednisone to 10mg NGtube po daily pulmonary following, thoracentesis as per pulmonary plan will follow up Consultation Date/Type/Reason Admit Date/Time Jul 19, 2018 at 18:40 Initial Consult Date 07/22/18 Type of Consult NEPHROLOGY Requesting Provider: LES TRENT Date/Time of Note DATE: 07/31/18 TIME: 18:44 Exam/Review of Systems Exam Vitals Vital Signs Date Temp Pulse Resp B/P (MAP) Pulse Ox O2 O2 Flow FiO2 Time Delivery Rate 07/31/18 65 14 98 35 17:43 07/31/18 98.3 112/61 Mechanical 15:19 (78) Ventilator Intake and Output 07/30/18 07/30/18 07/31/18 1515:00 23:00 07:00 IntakeIntake Total 1230 ml 1230 ml OutputOutput Total 300 ml BalanceBalance 1230 ml 930 ml Results Result Diagram: 07/31/18 0719 07/31/18 0538 Results 24hrs Laboratory Tests Test 07/30/18 21:17 07/31/18 01:40 07/31/18 05:02 07/31/18 05:38 Bedside Glucose 239 H 203 169 Sodium Level 135 Potassium Level 4.5 Chloride Level 92 L Carbon Dioxide Level 38 H Anion Gap 5 Blood Urea Nitrogen 77 H Creatinine 0.72 Est Glomerular Filtrat > 60 Rate mL/min Glucose Level 161 Calcium Level 8.5 Test 07/31/18 07:19 07/31/18 08:06 07/31/18 17:30 White Blood Count 6.2 # Red Blood Count 2.79 L Hemoglobin 7.5 L Hematocrit 24.7 L Mean Corpuscular Volume 88.5 Mean Corpuscular 26.9 L Hemoglobin Mean Corpuscular 30.4 L Hemoglobin Concent Red Cell Distribution 19.3 H Width Platelet Count 34 L Mean Platelet Volume 14.1 H Immature Granulocytes % 1.000 H Neutrophils % 87.4 H Lymphocytes % 6.3 L Monocytes % 4.9 Eosinophils % 0.2 Basophils % 0.2 Nucleated Red Blood 1.8 H Cells % Immature Granulocytes # 0.060 H Neutrophils # 5.4 Lymphocytes # 0.4 L Monocytes # 0.3 Eosinophils # 0.0 Basophils # 0.0 Nucleated Red Blood 0.1 H Cells # Bedside Glucose 194 311 H Medications Medication Current Medications IV Flush (NS 3 ml) 3 ml PER PROTOCOL IV ; Start 07/19/18 at 19:30 Ondansetron HCl (Zofran Inj) 4 mg Q6H PRN IV NAUSEA/VOMITING; Start 07/19/18 at 19:30 Morphine Sulfate (morphine) 2 mg Q4H PRN IV .PAIN 8-10 Last administered on 07/30/18at 21:19; Admin Dose 2 MG; Start 07/19/18 at 19:30 Ferrous Sulfate (Ferrous Sulfate (Ec)) 325 mg DAILY PO Last administered on 07/31/18at 08:58; Admin Dose 325 MG; Start 07/20/18 at 09:00; Stop 08/19/18 at 08:59 Nitroglycerin (Nitroglycerin (Sl Tab) 0.4 Mg) 1 tab [id number] PRN SL CHEST PAIN; Start 07/19/18 at 19:30 Miscellaneous Information (Pending [facility] Order For Wound Care) This patient pedro... PRN PRN XX WOUND CARE; Start 07/20/18 at 01:30 Lorazepam (Ativan) 0.5 mg Q6 PRN IV AGITATION/ANXIETY Last administered on 07/30/18at 05:31; Admin Dose 0.5 MG; Start 07/22/18 at 17:00 Lansoprazole (Prevacid) 30 mg DAILY@06 GTB Last administered on 07/31/18at 05:15; Admin Dose 30 MG; Start 07/25/18 at 06:00 Insulin Glargine (Lantus) 16 units BID SC Last administered on 07/31/18at 08:14; Admin Dose 16 UNITS; Start 07/26/18 at 21:00 Acetaminophen (Tylenol Tab) 650 mg Q6H PRN GTB .PAIN 1-3 OR TEMP; Start 07/27/18 at 09:00 Acetaminophen (Tylenol Tab) 650 mg Q6H PRN GTB MILD TO MODERATE PAIN; Start 07/27/18 at 09:00 Ascorbic Acid (Vitamin C) 500 mg DAILY GTB Last administered on 07/31/18 08:58; Admin Dose 500 MG; Start 07/27/18 at 09:00 Atorvastatin Calcium (Lipitor) 20 mg QHS GTB Last administered on 07/30/18 21:19; Admin Dose 20 MG; Start 07/27/18 at 21:00 Duloxetine HCl (Cymbalta) 30 mg DAILY GTB Last administered on 07/31/18 08:58; Admin Dose 30 MG; Start 07/27/18 at 09:00 Gabapentin (Neurontin) 400 mg Q8 GTB Last administered on 07/31/18 13:17; Admin Dose 400 MG; Start 07/27/18 at 14:00 Hydralazine HCl (Apresoline) 50 mg Q8 GTB Last administered on 07/31/18 13:17; Admin Dose 50 MG; Start 07/27/18 at 14:00 Isosorbide Dinitrate (Isordil) 10 mg TID GTB Last administered on 07/31/18 13:17; Admin Dose 10 MG; Start 07/27/18 at 09:00 Metoprolol Tartrate (Lopressor) 50 mg Q8 GTB Last administered on 07/31/18 13:17; Admin Dose 50 MG; Start 07/27/18 at 14:00 Multivitamins (Multivitamin) 30 ml DAILY GTB Last administered on 07/31/18 08:58; Admin Dose 30 ML; Start 07/27/18 at 09:00 Ondansetron HCl (Zofran Tab) 4 mg Q4H PRN GTB NAUSEA AND/OR VOMITING; Start 07/27/18 at 09:00 Senna (Senokot) 1 tab BID GTB Last administered on 07/31/18 08:58; Admin Dose 1 TAB; Start 07/27/18 at 09:00 Tramadol HCl (Ultram) 50 mg Q6H PRN GTB PAIN LEVEL 4-7; Start 07/27/18 at 09:00 Miscellaneous Information 1 ea NOTE XX ; Start 07/27/18 at 09:00 Glucose (Glutose) 15 gm Q15M PRN PO DECREASED GLUCOSE; Start 07/27/18 at 09:00 Glucose (Glutose) 22.5 gm Q15M PRN PO DECREASED GLUCOSE; Start 07/27/18 at 09:00 Dextrose (D50w Syringe) 25 ml Q15M PRN IV DECREASED GLUCOSE; Start 07/27/18 at 09:00 Dextrose (D50w Syringe) 50 ml Q15M PRN IV DECREASED GLUCOSE; Start 07/27/18 at 09:00 Glucagon (Glucagen) 1 mg Q15M PRN IM DECREASED GLUCOSE; Start 07/27/18 at 09:00 Glucose (Glutose) 15 gm Q15M PRN BUCCAL DECREASED GLUCOSE; Start 07/27/18 at 09:00 Insulin Human NPH (Humulin N) 18 unit DAILY@0900 SC Last administered on 07/31/18at 08:15; Admin Dose 18 UNIT; Start 07/29/18 at 09:00 Prednisone (Prednisone) 20 mg DAILY GTB Last administered on 07/31/18at 08:58; Admin Dose 20 MG; Start 07/30/18 at 09:00 Insulin Aspart (Novolog Insulin Pen) NOVOLOG *MODERATE* ALGORI... Q6 SC Last administered on 07/31/18at 17:40; Admin Dose 10 UNIT; Start 07/31/18 at 18:00 OCTAVIO BOX MD July 31, 2018 18:44
[2018-07-31] MEDS: ATORVASTATIN 20 MG TAB GTB SCH (21:44)
[2018-08-01] VITALS (25 sets, daily range): BP systolic 105–125; BP diastolic 53–62; PULSE 59–68; RESP 14–19
[2018-08-01] MEDS: INSULIN ASPART [NOVOLOG] 3 ML PEN SC SCH ×4 (00:46→17:49)
[2018-08-01] MEDS: GABAPENTIN 400 MG CAP GTB SCH ×3 (06:38→21:30)
[2018-08-01] MEDS: LANSOPRAZOLE 30 MG CAP GTB SCH (06:38)
[2018-08-01] MEDS: METOPROLOL 50 MG TAB GTB SCH ×3 (06:40→21:31)
[2018-08-01] MEDS: MULTIVITAMINS 30 ML CUP GTB SCH (08:58)
[2018-08-01] MEDS: DULOXETINE 30 MG CAP DR GTB SCH (08:58)
[2018-08-01] MEDS: ISOSORBIDE DINITRATE 10 MG TAB GTB SCH ×3 (08:59→21:30)
[2018-08-01] MEDS: predniSONE 10 MG TAB GTB SCH (08:59)
[2018-08-01] MEDS: SENNA TAB GTB SCH ×2 (08:59→21:30)
[2018-08-01] MEDS: FERROUS SULFATE (EC) 325 MG TAB PO SCH (08:59)
[2018-08-01] MEDS: ASCORBIC ACID 500 MG TAB GTB SCH (08:59)
[2018-08-01] MEDS: NPH, HUMAN INSULIN ISOPHANE 3ML VIAL SC SCH (09:01)
[2018-08-01] MEDS: INSULIN GLARGINE [LANTus] (100 UNITS/ML) SYG SC SCH ×2 (09:01→21:35)
[2018-08-01] MEDS: ACETAMINOPHEN 325 MG TAB GTB PRN (09:06)
--- NOTE | 2018-08-01 09:37 | PN ---
Date/Time of Note Date/Time of Note DATE: 08/01/18 TIME: 09:36 Assessment/Plan VTE Prophylaxis Risk score (from Ns)>0 risk: 6 [place] [facility] [place] [facility]CD contraindicated: other Pharmacological prophylaxis: other Pharm contraindication: other Lines/Catheters [facility]ter Type (from [facility] Mid Line Central line still needed: Yes Urinary Cath still in place: No Assessment/Plan Assessment/Plan - Hyperkalemia- resolved - Severe thrombocytopenia secondary to ITP; platelets 47 - s/p Decadron and IVIG. Pt continued on Prednisone. - per hematology consultation. -VDRF with tracheostomy on 02/19/18. - per pulmonary - Azotemia - per nephro consult - monitor renal functions -Hx of Atrial fibrillation and atrial flutter. - unable to tolerate anticoagulation due to severe thrombocytopenia. 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 BS elevated - Continue Lantus and NovoLog. - per Endo consult -Anemia, monitor H&H. - Dysphagia -SP PEG placement on 02/19/18. -Colostomy -Bilateral BKA -Major depressive disorder -Hx of Stage III sacral decubitus ulcer Further recommendations based on clinical course. Plan of care discussed with Dr. Villatoro. Result Diagram: 08/01/18 0505 08/01/18 0504 Results 24hrs Laboratory Tests Test 07/31/18 17:30 07/31/18 21:48 08/01/18 00:43 08/01/18 05:04 Bedside Glucose 311 H 249 H 249 H Sodium Level 135 Potassium Level 4.2 Chloride Level 92 L Carbon Dioxide Level 39 H Anion Gap 4 L Blood Urea Nitrogen 64 H Creatinine 0.78 Est Glomerular Filtrat > 60 Rate mL/min Glucose Level 156 Calcium Level 8.0 L Test 08/01/18 05:05 08/01/18 06:42 08/01/18 08:57 White Blood Count 5.2 Red Blood Count 2.55 L Hemoglobin 6.9 *L Hematocrit 22.7 L Mean Corpuscular Volume 89.0 Mean Corpuscular 27.1 L Hemoglobin Mean Corpuscular 30.4 L Hemoglobin Concent Red Cell Distribution 19.0 H Width Platelet Count 33 L Mean Platelet Volume 12.3 H Immature Granulocytes % 1.100 H Neutrophils % 78.9 H Lymphocytes % 11.5 L Monocytes % 7.7 Eosinophils % 0.6 Basophils % 0.2 Nucleated Red Blood 0.6 H Cells % Immature Granulocytes # 0.060 H Neutrophils # 4.1 Lymphocytes # 0.6 L Monocytes # 0.4 Eosinophils # 0.0 Basophils # 0.0 Nucleated Red Blood 0.0 Cells # Bedside Glucose 166 152 Subjective 24 Hr Interval Summary Free Text/Dictation nad afebrile lab pending dw staff Subjective hx not possible: pt non-verbal Constitutional: requiring O2 Exam/Review of Systems Exam Vitals Vital Signs Date Temp Pulse Resp B/P (MAP) Pulse Ox O2 O2 Flow FiO2 Time Delivery Rate 08/01/18 100.1 09:06 08/01/18 62 08:00 08/01/18 18 111/56 97 [place] 07:08 (74) l Ventilato r 08/01/18 35 05:38 Intake and Output 07/31/18 07/31/18 08/01/18 1515:00 23:00 07:00 IntakeIntake Total 1230 ml 1230 ml OutputOutput Total 880 ml 400 ml BalanceBalance 350 ml 830 ml Constitutional: alert, non-verbal, frail Psych: nl mood/affect Eyes: nl lids, nl sclera ENMT: nl external ears & nose Respiratory: diminished breath sounds (bilaterl at bases) Cardiovascular: regular rate and rhythm, other (s1s2) Gastrointestinal: soft, other (gt intact; colostomy intact) Musculoskeletal: other (renae BKA) Neurological: confused Skin: other (decub) Results Results 24hrs Laboratory Tests Test 07/31/18 17:30 07/31/18 21:48 08/01/18 00:43 08/01/18 05:04 Bedside Glucose 311 H 249 H 249 H Sodium Level 135 Potassium Level 4.2 Chloride Level 92 L Carbon Dioxide Level 39 H Anion Gap 4 L Blood Urea Nitrogen 64 H Creatinine 0.78 Est Glomerular Filtrat > 60 Rate mL/min Glucose Level 156 Calcium Level 8.0 L Test 08/01/18 05:05 08/01/18 06:42 08/01/18 08:57 White Blood Count 5.2 Red Blood Count 2.55 L Hemoglobin 6.9 *L Hematocrit 22.7 L Mean Corpuscular Volume 89.0 Mean Corpuscular 27.1 L Hemoglobin Mean Corpuscular 30.4 L Hemoglobin Concent Red Cell Distribution 19.0 H Width Platelet Count 33 L Mean Platelet Volume 12.3 H Immature Granulocytes % 1.100 H Neutrophils % 78.9 H Lymphocytes % 11.5 L Monocytes % 7.7 Eosinophils % 0.6 Basophils % 0.2 Nucleated Red Blood 0.6 H Cells % Immature Granulocytes # 0.060 H Neutrophils # 4.1 Lymphocytes # 0.6 L Monocytes # 0.4 Eosinophils # 0.0 Basophils # 0.0 Nucleated Red Blood 0.0 Cells # Bedside Glucose 166 152 Medications Medication Current Medications IV Flush (NS 3 ml) 3 ml PER PROTOCOL IV ; Start 07/19/18 at 19:30 Ondansetron HCl (Zofran Inj) 4 mg Q6H PRN IV NAUSEA/VOMITING; Start 07/19/18 at 19:30 Morphine Sulfate (morphine) 2 mg Q4H PRN IV .PAIN 8-10 Last administered on 07/30/18at 21:19; Admin Dose 2 MG; Start 07/19/18 at 19:30 Ferrous Sulfate (Ferrous Sulfate (Ec)) 325 mg DAILY PO Last administered on 08/01/18at 08:59; Admin Dose 325 MG; Start 07/20/18 at 09:00; Stop 08/19/18 at 08:59 Nitroglycerin (Nitroglycerin (Sl Tab) 0.4 Mg) 1 tab [id number] PRN SL CHEST PAIN; Start 07/19/18 at 19:30 Miscellaneous Information (Pending [facility] Order For Wound Care) This patient pedro... PRN PRN XX WOUND CARE; Start 07/20/18 at 01:30 Lorazepam (Ativan) 0.5 mg Q6 PRN IV AGITATION/ANXIETY Last administered on 07/30/18at 05:31; Admin Dose 0.5 MG; Start 07/22/18 at 17:00 Lansoprazole (Prevacid) 30 mg DAILY@06 GTB Last administered on 08/01/18at 06:38; Admin Dose 30 MG; Start 07/25/18 at 06:00 Insulin Glargine (Lantus) 16 units BID SC Last administered on 08/01/18 09:01; Admin Dose 16 UNITS; Start 07/26/18 at 21:00 Acetaminophen (Tylenol Tab) 650 mg Q6H PRN GTB .PAIN 1-3 OR TEMP Last adm inistered on 08/01/18 09:06; Admin Dose 650 MG; Start 07/27/18 at 09:00 Acetaminophen (Tylenol Tab) 650 mg Q6H PRN GTB MILD TO MODERATE PAIN; Start 07/27/18 at 09:00 Ascorbic Acid (Vitamin C) 500 mg DAILY GTB Last administered on 08/01/18 08:59; Admin Dose 500 MG; Start 07/27/18 at 09:00 Atorvastatin Calcium (Lipitor) 20 mg QHS GTB Last administered on 07/31/18 21:44; Admin Dose 20 MG; Start 07/27/18 at 21:00 Duloxetine HCl (Cymbalta) 30 mg DAILY GTB Last administered on 08/01/18 08:58; Admin Dose 30 MG; Start 07/27/18 at 09:00 Gabapentin (Neurontin) 400 mg Q8 GTB Last administered on 08/01/18 06:38; Admin Dose 400 MG; Start 07/27/18 at 14:00 Hydralazine HCl (Apresoline) 50 mg Q8 GTB Last administered on 08/01/18 06:39; Admin Dose 50 MG; Start 07/27/18 at 14:00 Isosorbide Dinitrate (Isordil) 10 mg TID GTB Last administered on 08/01/18 08:59; Admin Dose 10 MG; Start 07/27/18 at 09:00 Metoprolol Tartrate (Lopressor) 50 mg Q8 GTB Last administered on 08/01/18 06:40; Admin Dose 50 MG; Start 07/27/18 at 14:00 Multivitamins (Multivitamin) 30 ml DAILY GTB Last administered on 08/01/18 08:58; Admin Dose 30 ML; Start 07/27/18 at 09:00 Ondansetron HCl (Zofran Tab) 4 mg Q4H PRN GTB NAUSEA AND/OR VOMITING; Start 07/27/18 at 09:00 Senna (Senokot) 1 tab BID GTB Last administered on 08/01/18 08:59; Admin Dose 1 TAB; Start 07/27/18 at 09:00 Tramadol HCl (Ultram) 50 mg Q6H PRN GTB PAIN LEVEL 4-7; Start 07/27/18 at 09:00 Miscellaneous Information 1 ea NOTE XX ; Start 07/27/18 at 09:00 Glucose (Glutose) 15 gm Q15M PRN PO DECREASED GLUCOSE; Start 07/27/18 at 09:00 Glucose (Glutose) 22.5 gm Q15M PRN PO DECREASED GLUCOSE; Start 07/27/18 at 09:00 Dextrose (D50w Syringe) 25 ml Q15M PRN IV DECREASED GLUCOSE; Start 07/27/18 at 09:00 Dextrose (D50w Syringe) 50 ml Q15M PRN IV DECREASED GLUCOSE; Start 07/27/18 at 09:00 Glucagon (Glucagen) 1 mg Q15M PRN IM DECREASED GLUCOSE; Start 07/27/18 at 09:00 Glucose (Glutose) 15 gm Q15M PRN BUCCAL DECREASED GLUCOSE; Start 07/27/18 at 09:00 Insulin Human NPH (Humulin N) 18 unit DAILY@0900 SC Last administered on 08/01/18 09:01; Admin Dose 18 UNIT; Start 07/29/18 at 09:00 Insulin Aspart (Novolog Insulin Pen) NOVOLOG *MODERATE* ALGORI... Q6 SC Last administered on 08/01/18at 06:44; Admin Dose 2 UNIT; Start 07/31/18 at 18:00 Prednisone (Prednisone) 10 mg DAILY GTB Last administered on 08/01/18 08:59; Admin Dose 10 MG; Start 08/01/18 at 09:00 LES TRENT August 01, 2018 09:37
--- NOTE | 2018-08-01 11:47 | CONS ---
Assessment/Plan Assessment/Plan Assessment/Plan (Daily) Ventilator setting; assist control of 14, tidal volume 500, PEEP of 5, 35% FiO2. Assessment and recommendations; 1. Patient with history of VDRF admitted for pneumonia status post treatment. 2. CHF. 3. History of colostomy and bilateral below knee operations. 4. Prior CABG. 5. Recurrent anemia. Continue current supportive care. Transfuse blood. Monitor H&H. Consultation Date/Type/Reason Admit Date/Time Jul 19, 2018 at 18:40 Initial Consult Date 07/24/18 Type of Consult Pulmonary Requesting Provider: LES TRENT Date/Time of Note DATE: 08/01/18 TIME: 11:45 24 HR Interval Summary Free Text/Dictation Patient's condition is stable. Has remained hemodynamically stable. General exam; elderly male, on ventilator via tracheostomy, currently no distress. Exam/Review of Systems Exam Vitals Vital Signs Date Temp Pulse Resp B/P (MAP) Pulse Ox O2 O2 Flow FiO2 Time Delivery Rate 08/01/18 98.9 66 18 125/62 98 Mechanical 11:33 (83) Ventilator 08/01/18 30 09:15 Intake and Output 07/31/18 07/31/18 08/01/18 1515:00 23:00 07:00 IntakeIntake Total 1230 ml 1230 ml OutputOutput Total 880 ml 400 ml BalanceBalance 350 ml 830 ml Exam HEENT exam; supple neck, no lymphadenopathy. Positive JVD. No neck masses. Patient is edentulous. Tracheostomy in place. Insertion site is clean. Chest exam; diminished breath sounds bilaterally. S1-S2 audible, no murmurs. Regular rhythm. Abdomen exam; soft, no organomegaly. G-tube in place. Colostomy in place. Bowel sounds audible. Abdomen is mildly protuberant. Extremity exam; bilateral below-knee amputations. [employer] exam; no focal deficit. Results Result Diagram: 08/01/18 0505 08/01/18 0504 Results 24hrs Laboratory Tests Test 07/31/18 17:30 07/31/18 21:48 08/01/18 00:43 08/01/18 05:04 Bedside Glucose 311 H 249 H 249 H Sodium Level 135 Potassium Level 4.2 Chloride Level 92 L Carbon Dioxide Level 39 H Anion Gap 4 L Blood Urea Nitrogen 64 H Creatinine 0.78 Est Glomerular Filtrat > 60 Rate mL/min Glucose Level 156 Calcium Level 8.0 L Test 08/01/18 05:05 08/01/18 06:42 08/01/18 08:57 White Blood Count 5.2 Red Blood Count 2.55 L Hemoglobin 6.9 *L Hematocrit 22.7 L Mean Corpuscular Volume 89.0 Mean Corpuscular 27.1 L Hemoglobin Mean Corpuscular 30.4 L Hemoglobin Concent Red Cell Distribution 19.0 H Width Platelet Count 33 L Mean Platelet Volume 12.3 H Immature Granulocytes % 1.100 H Neutrophils % 78.9 H Lymphocytes % 11.5 L Monocytes % 7.7 Eosinophils % 0.6 Basophils % 0.2 Nucleated Red Blood 0.6 H Cells % Immature Granulocytes # 0.060 H Neutrophils # 4.1 Lymphocytes # 0.6 L Monocytes # 0.4 Eosinophils # 0.0 Basophils # 0.0 Nucleated Red Blood 0.0 Cells # Bedside Glucose 166 152 Medications Medication Current Medications IV Flush (NS 3 ml) 3 ml PER PROTOCOL IV ; Start 07/19/18 at 19:30 Ondansetron HCl (Zofran Inj) 4 mg Q6H PRN IV NAUSEA/VOMITING; Start 07/19/18 at 19:30 Morphine Sulfate (morphine) 2 mg Q4H PRN IV .PAIN 8-10 Last administered on 07/30/18at 21:19; Admin Dose 2 MG; Start 07/19/18 at 19:30 Ferrous Sulfate (Ferrous Sulfate (Ec)) 325 mg DAILY PO Last administered on 08/01/18at 08:59; Admin Dose 325 MG; Start 07/20/18 at 09:00; Stop 08/19/18 at 08:59 Nitroglycerin (Nitroglycerin (Sl Tab) 0.4 Mg) 1 tab [id number] PRN SL CHEST PAIN; Start 07/19/18 at 19:30 Miscellaneous Information (Pending [facility] Order For Wound Care) This patient pedro... PRN PRN XX WOUND CARE; Start 07/20/18 at 01:30 Lorazepam (Ativan) 0.5 mg Q6 PRN IV AGITATION/ANXIETY Last administered on 07/30/18at 05:31; Admin Dose 0.5 MG; Start 07/22/18 at 17:00 Lansoprazole (Prevacid) 30 mg DAILY@06 GTB Last administered on 08/01/18 06:38; Admin Dose 30 MG; Start 07/25/18 at 06:00 Insulin Glargine (Lantus) 16 units BID SC Last administered on 08/01/18 09:01; Admin Dose 16 UNITS; Start 07/26/18 at 21:00 Acetaminophen (Tylenol Tab) 650 mg Q6H PRN GTB .PAIN 1-3 OR TEMP Last administered on 08/01/18 09:06; Admin Dose 650 MG; Start 07/27/18 at 09:00 Acetaminophen (Tylenol Tab) 650 mg Q6H PRN GTB MILD TO MODERATE PAIN; Start 07/27/18 at 09:00 Ascorbic Acid (Vitamin C) 500 mg DAILY GTB Last administered on 08/01/18 08:59; Admin Dose 500 MG; Start 07/27/18 at 09:00 Atorvastatin Calcium (Lipitor) 20 mg QHS GTB Last administered on 07/31/18 21:44; Admin Dose 20 MG; Start 07/27/18 at 21:00 Duloxetine HCl (Cymbalta) 30 mg DAILY GTB Last administered on 08/01/18 08:58; Admin Dose 30 MG; Start 07/27/18 at 09:00 Gabapentin (Neurontin) 400 mg Q8 GTB Last administered on 08/01/18 06:38; Admin Dose 400 MG; Start 07/27/18 at 14:00 Hydralazine HCl (Apresoline) 50 mg Q8 GTB Last administered on 08/01/18 06:39; Admin Dose 50 MG; Start 07/27/18 at 14:00 Isosorbide Dinitrate (Isordil) 10 mg TID GTB Last administered on 08/01/18 08:59; Admin Dose 10 MG; Start 07/27/18 at 09:00 Metoprolol Tartrate (Lopressor) 50 mg Q8 GTB Last administered on 08/01/18 06:40; Admin Dose 50 MG; Start 07/27/18 at 14:00 Multivitamins (Multivitamin) 30 ml DAILY GTB Last administered on 08/01/18 08:58; Admin Dose 30 ML; Start 07/27/18 at 09:00 Ondansetron HCl (Zofran Tab) 4 mg Q4H PRN GTB NAUSEA AND/OR VOMITING; Start 07/27/18 at 09:00 Senna (Senokot) 1 tab BID GTB Last administered on 08/01/18 08:59; Admin Dose 1 TAB; Start 07/27/18 at 09:00 Tramadol HCl (Ultram) 50 mg Q6H PRN GTB PAIN LEVEL 4-7; Start 07/27/18 at 09:00 Miscellaneous Information 1 ea NOTE XX ; Start 07/27/18 at 09:00 Glucose (Glutose) 15 gm Q15M PRN PO DECREASED GLUCOSE; Start 07/27/18 at 09:00 Glucose (Glutose) 22.5 gm Q15M PRN PO DECREASED GLUCOSE; Start 07/27/18 at 09:00 Dextrose (D50w Syringe) 25 ml Q15M PRN IV DECREASED GLUCOSE; Start 07/27/18 at 09:00 Dextrose (D50w Syringe) 50 ml Q15M PRN IV DECREASED GLUCOSE; Start 07/27/18 at 09:00 Glucagon (Glucagen) 1 mg Q15M PRN IM DECREASED GLUCOSE; Start 07/27/18 at 09:00 Glucose (Glutose) 15 gm Q15M PRN BUCCAL DECREASED GLUCOSE; Start 07/27/18 at 09:00 Insulin Human NPH (Humulin N) 18 unit DAILY@0900 SC Last administered on 08/01/18at 09:01; Admin Dose 18 UNIT; Start 07/29/18 at 09:00 Insulin Aspart (Novolog Insulin Pen) NOVOLOG *MODERATE* ALGORI... Q6 SC Last administered on 08/01/18 06:44; Admin Dose 2 UNIT; Start 07/31/18 at 18:00 Prednisone (Prednisone) 10 mg DAILY GTB Last administered on 08/01/18 08:59; Admin Dose 10 MG; Start 08/01/18 at 09:00 MESHA GERARD August 01, 2018 11:47
--- NOTE | 2018-08-01 13:28 | CONS ---
Assessment/Plan Assessment/Plan Hospital Course (Demo Recall) IMPRESSION: 1. Permanent pacemaker with proper function at this time, primarily AV pacing. No signs of dysfunction at this time. 2. History of paroxysmal atrial fibrillation and atrial flutter, had been off anticoagulation due to severe thrombocytopenia, has been started on anticoagulation, which was stopped at this time due to severe thrombocytopenia. 3. Hypertension. 4. Dyslipidemia. 5. History of aortic valve replacement, bioprosthesis in 06/2017. 6. History of coronary artery disease, status post coronary artery bypass graft surgery in 06/2017 using AHUJA to LAD. 7. 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 8. Diabetes mellitus. 9. Dysphagia, status post G-tube. 10. Chronic respiratory failure, status post tracheostomy. 11.Thrombocytopenia-still severely depressed 12. anemia-acute worsening Recc: -Tele -Continue BB/hydralazine -Continue isordil -Holding antiplatelet/anticoagulation secondary to severe thrombocytopenia -Continue statin -Follow volume status closely with ongoing but improving increased BUN -Continue steroids/IVIG and follow plt count closely -transfuse PRBC's Consultation Date/Type/Reason Admit Date/Time Jul 19, 2018 at 18:40 Initial Consult Date 07/22/18 Type of Consult Cardiology Reason for Consultation AVR Requesting Provider: LES TRENT Date/Time of Note DATE: 08/01/18 TIME: 13:25 Exam/Review of Systems Vital Signs Vitals Vital Signs Date Temp Pulse Resp B/P (MAP) Pulse Ox O2 O2 Flow FiO2 Time Delivery Rate 08/01/18 60 12:00 08/01/18 98.9 18 125/62 98 Mechanical 11:33 (83) Ventilator 08/01/18 30 09:15 Intake and Output 07/31/18 07/31/18 08/01/18 1515:00 23:00 07:00 IntakeIntake Total 1230 ml 1230 ml OutputOutput Total 880 ml 400 ml BalanceBalance 350 ml 830 ml Exam Exam Review of Systems: CONSTITUTIONAL: No fevers, chills. PULMONARY: No sob CARDIOVASCULAR: No chest pain/palpitations GASTROINTESTINAL: No nausea/vomiting. GENITOURINARY: No hematuria/dysuria. MUSCULOSKELETAL: No myagias/arthalgias. PSYCHIATRIC: The patient denies depression. NEUROLOGIC: lethargic somewhat Constitutional: alert Psych: no complaints Head: normocephalic ENMT: mucosa pink and moist Neck: supple, jvd (9 cm water) Respiratory: diminished breath sounds (at bases/B) Cardiovascular: regular rate and rhythm Gastrointestinal: soft, non-tender Musculoskeletal: muscle weakness (mild generalized) Extremities: other (BIlateral LE amputation) Neurological: other (No focal deficits) Labs Result Diagram: 08/01/18 0505 08/01/18 0504 Results 24hrs Laboratory Tests Test 07/31/18 17:30 07/31/18 21:48 08/01/18 00:43 08/01/18 05:04 Bedside Glucose 311 H 249 H 249 H Sodium Level 135 Potassium Level 4.2 Chloride Level 92 L Carbon Dioxide Level 39 H Anion Gap 4 L Blood Urea Nitrogen 64 H Creatinine 0.78 Est Glomerular Filtrat > 60 Rate mL/min Glucose Level 156 Calcium Level 8.0 L Test 08/01/18 05:05 08/01/18 06:42 08/01/18 08:57 08/01/18 12:01 White Blood Count 5.2 Red Blood Count 2.55 L Hemoglobin 6.9 *L Hematocrit 22.7 L Mean Corpuscular Volume 89.0 Mean Corpuscular 27.1 L Hemoglobin Mean Corpuscular 30.4 L Hemoglobin Concent Red Cell Distribution 19.0 H Width Platelet Count 33 L Mean Platelet Volume 12.3 H Immature Granulocytes % 1.100 H Neutrophils % 78.9 H Lymphocytes % 11.5 L Monocytes % 7.7 Eosinophils % 0.6 Basophils % 0.2 Nucleated Red Blood 0.6 H Cells % Immature Granulocytes # 0.060 H Neutrophils # 4.1 Lymphocytes # 0.6 L Monocytes # 0.4 Eosinophils # 0.0 Basophils # 0.0 Nucleated Red Blood 0.0 Cells # Bedside Glucose 166 152 151 Medications Medications Current Medications IV Flush (NS 3 ml) 3 ml PER PROTOCOL IV ; Start 07/19/18 at 19:30 Ondansetron HCl (Zofran Inj) 4 mg Q6H PRN IV NAUSEA/VOMITING; Start 07/19/18 at 19:30 Morphine Sulfate (morphine) 2 mg Q4H PRN IV .PAIN 8-10 Last administered on 07/30/18at 21:19; Admin Dose 2 MG; Start 07/19/18 at 19:30 Ferrous Sulfate (Ferrous Sulfate (Ec)) 325 mg DAILY PO Last administered on 08/01/18 08:59; Admin Dose 325 MG; Start 07/20/18 at 09:00; Stop 08/19/18 at 08 :59 Nitroglycerin (Nitroglycerin (Sl Tab) 0.4 Mg) 1 tab [id number] PRN SL CHEST PAIN; Start 07/19/18 at 19:30 Miscellaneous Information (Pending [facility] Order For Wound Care) This patient pedro... PRN PRN XX WOUND CARE; Start 07/20/18 at 01:30 Lorazepam (Ativan) 0.5 mg Q6 PRN IV AGITATION/ANXIETY Last administered on 07/30/18 05:31; Admin Dose 0.5 MG; Start 07/22/18 at 17:00 Lansoprazole (Prevacid) 30 mg DAILY@06 GTB Last administered on 08/01/18 06:38; Admin Dose 30 MG; Start 07/25/18 at 06:00 Insulin Glargine (Lantus) 16 units BID SC Last administered on 08/01/18 09:01; Admin Dose 16 UNITS; Start 07/26/18 at 21:00 Acetaminophen (Tylenol Tab) 650 mg Q6H PRN GTB .PAIN 1-3 OR TEMP Last admini stered on 08/01/18 09:06; Admin Dose 650 MG; Start 07/27/18 at 09:00 Acetaminophen (Tylenol Tab) 650 mg Q6H PRN GTB MILD TO MODERATE PAIN; Start 07/27/18 at 09:00 Ascorbic Acid (Vitamin C) 500 mg DAILY GTB Last administered on 08/01/18 08:59; Admin Dose 500 MG; Start 07/27/18 at 09:00 Atorvastatin Calcium (Lipitor) 20 mg QHS GTB Last administered on 07/31/18 21:44; Admin Dose 20 MG; Start 07/27/18 at 21:00 Duloxetine HCl (Cymbalta) 30 mg DAILY GTB Last administered on 08/01/18 08:58; Admin Dose 30 MG; Start 07/27/18 at 09:00 Gabapentin (Neurontin) 400 mg Q8 GTB Last administered on 08/01/18 13:03; Admin Dose 400 MG; Start 07/27/18 at 14:00 Hydralazine HCl (Apresoline) 50 mg Q8 GTB Last administered on 08/01/18 06:39; Admin Dose 50 MG; Start 07/27/18 at 14:00 Isosorbide Dinitrate (Isordil) 10 mg TID GTB Last administered on 08/01/18at 13:16; Admin Dose 10 MG; Start 07/27/18 at 09:00 Metoprolol Tartrate (Lopressor) 50 mg Q8 GTB Last administered on 08/01/18at 06:40; Admin Dose 50 MG; Start 07/27/18 at 14:00 Multivitamins (Multivitamin) 30 ml DAILY GTB Last administered on 08/01/18 08:58; Admin Dose 30 ML; Start 07/27/18 at 09:00 Ondansetron HCl (Zofran Tab) 4 mg Q4H PRN GTB NAUSEA AND/OR VOMITING; Start 07/27/18 at 09:00 Senna (Senokot) 1 tab BID GTB Last administered on 08/01/18at 08:59; Admin Dose 1 TAB; Start 07/27/18 at 09:00 Tramadol HCl (Ultram) 50 mg Q6H PRN GTB PAIN LEVEL 4-7; Start 07/27/18 at 09:00 Miscellaneous Information 1 ea NOTE XX ; Start 07/27/18 at 09:00 Glucose (Glutose) 15 gm Q15M PRN PO DECREASED GLUCOSE; Start 07/27/18 at 09:00 Glucose (Glutose) 22.5 gm Q15M PRN PO DECREASED GLUCOSE; Start 07/27/18 at 09:00 Dextrose (D50w Syringe) 25 ml Q15M PRN IV DECREASED GLUCOSE; Start 07/27/18 at 09:00 Dextrose (D50w Syringe) 50 ml Q15M PRN IV DECREASED GLUCOSE; Start 07/27/18 at 09:00 Glucagon (Glucagen) 1 mg Q15M PRN IM DECREASED GLUCOSE; Start 07/27/18 at 09:00 Glucose (Glutose) 15 gm Q15M PRN BUCCAL DECREASED GLUCOSE; Start 07/27/18 at 09:00 Insulin Human NPH (Humulin N) 18 unit DAILY@0900 SC Last administered on 08/01/18at 09:01; Admin Dose 18 UNIT; Start 07/29/18 at 09:00 Insulin Aspart (Novolog Insulin Pen) NOVOLOG *MODERATE* ALGORI... Q6 SC Last administered on 08/01/18at 12:11; Admin Dose 2 UNIT; Start 07/31/18 at 18:00 Prednisone (Prednisone) 10 mg DAILY GTB Last administered on 08/01/18at 08:59; Admin Dose 10 MG; Start 08/01/18 at 09:00 RODGER MIRELES August 01, 2018 13:28
--- NOTE | 2018-08-01 14:58 | CONS ---
Assessment/Plan Assessment/Plan Hospital Course (Demo Recall) Type 2 DM -patient on prednisone taper, currently at 10mg daily in AM, will decrease NPH from 18 units to 10 units in AM to avoid hypoglycemia -continue Lantus 16 units BID -continue moderate dose novolog correction scale Q6H -check FS Q6H -will monitor FS and adjust regimen accordingly. Consultation Date/Type/Reason Admit Date/Time Jul 19, 2018 at 18:40 Initial Consult Date 07/24/18 Requesting Provider: LES TRENT Date/Time of Note DATE: 08/01/18 TIME: 14:55 24 HR Interval Summary Free Text/Dictation Patient seen and examined at bedside. He remains on TF x24 hours and overall FS readings are in target range. He is currently on prednisone 10mg via PEG in AM Exam/Review of Systems Exam Vitals Vital Signs Date Temp Pulse Resp B/P (MAP) Pulse Ox O2 O2 Flow FiO2 Time Delivery Rate 08/01/18 60 12:00 08/01/18 98.9 18 125/62 98 Mechanical 11:33 (83) Ventilator 08/01/18 30 09:15 Intake and Output 07/31/18 07/31/18 08/01/18 1515:00 23:00 07:00 IntakeIntake Total 1230 ml 1230 ml OutputOutput Total 880 ml 400 ml BalanceBalance 350 ml 830 ml Exam General: Sleeping in bed, not in acute distress. Skin appropriate for ethnicity HENT: Normocephalic, atraumatic. Trach intact Respiratory: Coarse vented breath sounds b/l, Breath sounds are equal, Symmetrical chest wall expansion. Cardiovascular: S1, S2. No edema in b/l thighs Gastrointestinal: Soft, PEG intact, normal bowel sounds. Integumentary: Warm to touch. B/l below knee amputation. Bruise in left upper extremity Neurologic: Opens eyes and moves upper extremities spontaneously Results Result Diagram: 08/01/18 0505 08/01/18 0504 Results 24hrs Laboratory Tests Test 07/31/18 17:30 07/31/18 21:48 08/01/18 00:43 08/01/18 05:04 Bedside Glucose 311 H 249 H 249 H Sodium Level 135 Potassium Level 4.2 Chloride Level 92 L Carbon Dioxide Level 39 H Anion Gap 4 L Blood Urea Nitrogen 64 H Creatinine 0.78 Est Glomerular Filtrat > 60 Rate mL/min Glucose Level 156 Calcium Level 8.0 L Test 08/01/18 05:05 08/01/18 06:42 08/01/18 08:57 08/01/18 12:01 White Blood Count 5.2 Red Blood Count 2.55 L Hemoglobin 6.9 *L Hematocrit 22.7 L Mean Corpuscular Volume 89.0 Mean Corpuscular 27.1 L Hemoglobin Mean Corpuscular 30.4 L Hemoglobin Concent Red Cell Distribution 19.0 H Width Platelet Count 33 L Mean Platelet Volume 12.3 H Immature Granulocytes % 1.100 H Neutrophils % 78.9 H Lymphocytes % 11.5 L Monocytes % 7.7 Eosinophils % 0.6 Basophils % 0.2 Nucleated Red Blood 0.6 H Cells % Immature Granulocytes # 0.060 H Neutrophils # 4.1 Lymphocytes # 0.6 L Monocytes # 0.4 Eosinophils # 0.0 Basophils # 0.0 Nucleated Red Blood 0.0 Cells # Bedside Glucose 166 152 151 Medications Medication Current Medications IV Flush (NS 3 ml) 3 ml PER PROTOCOL IV ; Start 07/19/18 at 19:30 Ondansetron HCl (Zofran Inj) 4 mg Q6H PRN IV NAUSEA/VOMITING; Start 07/19/18 at 19:30 Morphine Sulfate (morphine) 2 mg Q4H PRN IV .PAIN 8-10 Last administered on 07/30/18at 21:19; Admin Dose 2 MG; Start 07/19/18 at 19:30 Ferrous Sulfate (Ferrous Sulfate (Ec)) 325 mg DAILY PO Last administered on 08/01/18at 08:59; Admin Dose 325 MG; Start 07/20/18 at 09:00; Stop 08/19/18 at 08:59 Nitroglycerin (Nitroglycerin (Sl Tab) 0.4 Mg) 1 tab [id number] PRN SL CHEST PAIN; Start 07/19/18 at 19:30 Miscellaneous Information (Pending [facility] Order For Wound Care) This patient pedro... PRN PRN XX WOUND CARE; Start 07/20/18 at 01:30 Lorazepam (Ativan) 0.5 mg Q6 PRN IV AGITATION/ANXIETY Last administered on 07/30/18at 05:31; Admin Dose 0.5 MG; Start 07/22/18 at 17:00 Lansoprazole (Prevacid) 30 mg DAILY@06 GTB Last administered on 08/01/18 06:38; Admin Dose 30 MG; Start 07/25/18 at 06:00 Insulin Glargine (Lantus) 16 units BID SC Last administered on 08/01/18 09:01; Admin Dose 16 UNITS; Start 07/26/18 at 21:00 Acetaminophen (Tylenol Tab) 650 mg Q6H PRN GTB .PAIN 1-3 OR TEMP Last administered on 08/01/18 09:06; Admin Dose 650 MG; Start 07/27/18 at 09:00 Acetaminophen (Tylenol Tab) 650 mg Q6H PRN GTB MILD TO MODERATE PAIN; Start 07/27/18 at 09:00 Ascorbic Acid (Vitamin C) 500 mg DAILY GTB Last administered on 08/01/18 08:59; Admin Dose 500 MG; Start 07/27/18 at 09:00 Atorvastatin Calcium (Lipitor) 20 mg QHS GTB Last administered on 07/31/18 21:44; Admin Dose 20 MG; Start 07/27/18 at 21:00 Duloxetine HCl (Cymbalta) 30 mg DAILY GTB Last administered on 08/01/18 08:58; Admin Dose 30 MG; Start 07/27/18 at 09:00 Gabapentin (Neurontin) 400 mg Q8 GTB Last administered on 08/01/18 13:03; Admin Dose 400 MG; Start 07/27/18 at 14:00 Hydralazine HCl (Apresoline) 50 mg Q8 GTB Last administered on 08/01/18 06:39; Admin Dose 50 MG; Start 07/27/18 at 14:00 Isosorbide Dinitrate (Isordil) 10 mg TID GTB Last administered on 08/01/18 13:16; Admin Dose 10 MG; Start 07/27/18 at 09:00 Metoprolol Tartrate (Lopressor) 50 mg Q8 GTB Last administered on 08/01/18 06:40; Admin Dose 50 MG; Start 07/27/18 at 14:00 Multivitamins (Multivitamin) 30 ml DAILY GTB Last administered on 08/01/18 08:58; Admin Dose 30 ML; Start 07/27/18 at 09:00 Ondansetron HCl (Zofran Tab) 4 mg Q4H PRN GTB NAUSEA AND/OR VOMITING; Start 07/27/18 at 09:00 Senna (Senokot) 1 tab BID GTB Last administered on 08/01/18 08:59; Admin Dose 1 TAB; Start 07/27/18 at 09:00 Tramadol HCl (Ultram) 50 mg Q6H PRN GTB PAIN LEVEL 4-7; Start 07/27/18 at 09:00 Miscellaneous Information 1 ea NOTE XX ; Start 07/27/18 at 09:00 Glucose (Glutose) 15 gm Q15M PRN PO DECREASED GLUCOSE; Start 07/27/18 at 09:00 Glucose (Glutose) 22.5 gm Q15M PRN PO DECREASED GLUCOSE; Start 07/27/18 at 09:00 Dextrose (D50w Syringe) 25 ml Q15M PRN IV DECREASED GLUCOSE; Start 07/27/18 at 09:00 Dextrose (D50w Syringe) 50 ml Q15M PRN IV DECREASED GLUCOSE; Start 07/27/18 at 09:00 Glucagon (Glucagen) 1 mg Q15M PRN IM DECREASED GLUCOSE; Start 07/27/18 at 09:00 Glucose (Glutose) 15 gm Q15M PRN BUCCAL DECREASED GLUCOSE; Start 07/27/18 at 09:00 Insulin Human NPH (Humulin N) 18 unit DAILY@0900 SC Last administered on 08/01/18at 09:01; Admin Dose 18 UNIT; Start 07/29/18 at 09:00 Insulin Aspart (Novolog Insulin Pen) NOVOLOG *MODERATE* ALGORI... Q6 SC Last administered on 08/01/18at 12:11; Admin Dose 2 UNIT; Start 07/31/18 at 18:00 Prednisone (Prednisone) 10 mg DAILY GTB Last administered on 08/01/18 08:59; Admin Dose 10 MG; Start 08/01/18 at 09:00 LEON NATION MD August 01, 2018 14:58
--- NOTE | 2018-08-01 14:59 | CONS ---
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 plt count at 37K, prednisone 80 mg daily (started on saturday), will taper slowly as plt count allows, decrease to 70 mg -has been given IVIG 40 grams x 2 days -plt count is stable but he is on high doses of steroids, will likely give promacta if plt count doesnt improve. His plt count in Apr was >200, since dx of ITP has been highest bout 60K, still low but in a safe range will most likely consider promacta as it is the easiest to administer and he has had so many complications, he would likely do better at a more stable plt count Consultation Date/Type/Reason Admit Date/Time Jul 19, 2018 at 18:40 Initial Consult Date 07/22/18 Requesting Provider: LES TRENT Date/Time of Note DATE: 08/01/18 TIME: 14:56 24 HR Interval Summary Free Text/Dictation plt count basically stable Exam/Review of Systems Exam Vitals Vital Signs Date Temp Pulse Resp B/P (MAP) Pulse Ox O2 O2 Flow FiO2 Time Delivery Rate 08/01/18 60 12:00 08/01/18 98.9 18 125/62 98 Mechanical 11:33 (83) Ventilator 08/01/18 30 09:15 Intake and Output 07/31/18 07/31/18 08/01/18 1515:00 23:00 07:00 IntakeIntake Total 1230 ml 1230 ml OutputOutput Total 880 ml 400 ml BalanceBalance 350 ml 830 ml Results Result Diagram: 08/01/18 0505 08/01/18 0504 Results 24hrs Laboratory Tests Test 07/31/18 17:30 07/31/18 21:48 08/01/18 00:43 08/01/18 05:04 Bedside Glucose 311 H 249 H 249 H Sodium Level 135 Potassium Level 4.2 Chloride Level 92 L Carbon Dioxide Level 39 H Anion Gap 4 L Blood Urea Nitrogen 64 H Creatinine 0.78 Est Glomerular Filtrat > 60 Rate mL/min Glucose Level 156 Calcium Level 8.0 L Test 08/01/18 05:05 08/01/18 06:42 08/01/18 08:57 08/01/18 12:01 White Blood Count 5.2 Red Blood Count 2.55 L Hemoglobin 6.9 *L Hematocrit 22.7 L Mean Corpuscular Volume 89.0 Mean Corpuscular 27.1 L Hemoglobin Mean Corpuscular 30.4 L Hemoglobin Concent Red Cell Distribution 19.0 H Width Platelet Count 33 L Mean Platelet Volume 12.3 H Immature Granulocytes % 1.100 H Neutrophils % 78.9 H Lymphocytes % 11.5 L Monocytes % 7.7 Eosinophils % 0.6 Basophils % 0.2 Nucleated Red Blood 0.6 H Cells % Immature Granulocytes # 0.060 H Neutrophils # 4.1 Lymphocytes # 0.6 L Monocytes # 0.4 Eosinophils # 0.0 Basophils # 0.0 Nucleated Red Blood 0.0 Cells # Bedside Glucose 166 152 151 Medications Medication Current Medications IV Flush (NS 3 ml) 3 ml PER PROTOCOL IV ; Start 07/19/18 at 19:30 Ondansetron HCl (Zofran Inj) 4 mg Q6H PRN IV NAUSEA/VOMITING; Start 07/19/18 at 19:30 Morphine Sulfate (morphine) 2 mg Q4H PRN IV .PAIN 8-10 Last administered on 07/30/18at 21:19; Admin Dose 2 MG; Start 07/19/18 at 19:30 Ferrous Sulfate (Ferrous Sulfate (Ec)) 325 mg DAILY PO Last administered on 08/01/18at 08:59; Admin Dose 325 MG; Start 07/20/18 at 09:00; Stop 08/19/18 at 08:59 Nitroglycerin (Nitroglycerin (Sl Tab) 0.4 Mg) 1 tab [id number] PRN SL CHEST PAIN; Start 07/19/18 at 19:30 [facility] This patient pedro... PRN PRN XX WOUND CARE; Start 07/20/18 at 01:30 Lorazepam (Ativan) 0.5 mg Q6 PRN IV AGITATION/ANXIETY Last administered on 07/30/18at 05:31; Admin Dose 0.5 MG; Start 07/22/18 at 17:00 Lansoprazole (Prevacid) 30 mg DAILY@06 GTB Last administered on 08/01/18 06:38; Admin Dose 30 MG; Start 07/25/18 at 06:00 Insulin Glargine (Lantus) 16 units BID SC Last administered on 08/01/18 09:01; Admin Dose 16 UNITS; Start 07/26/18 at 21:00 Acetaminophen (Tylenol Tab) 650 mg Q6H PRN GTB .PAIN 1-3 OR TEMP Last administered on 08/01/18 09:06; Admin Dose 650 MG; Start 07/27/18 at 09:00 Acetaminophen (Tylenol Tab) 650 mg Q6H PRN GTB MILD TO MODERATE PAIN; Start 07/27/18 at 09:00 Ascorbic Acid (Vitamin C) 500 mg DAILY GTB Last administered on 08/01/18 08:59; Admin Dose 500 MG; Start 07/27/18 at 09:00 Atorvastatin Calcium (Lipitor) 20 mg QHS GTB Last administered on 07/31/18 21:44; Admin Dose 20 MG; Start 07/27/18 at 21:00 Duloxetine HCl (Cymbalta) 30 mg DAILY GTB Last administered on 08/01/18 08:58; Admin Dose 30 MG; Start 07/27/18 at 09:00 Gabapentin (Neurontin) 400 mg Q8 GTB Last administered on 08/01/18 13:03; Admin Dose 400 MG; Start 07/27/18 at 14:00 Hydralazine HCl (Apresoline) 50 mg Q8 GTB Last administered on 08/01/18 06:39; Admin Dose 50 MG; Start 07/27/18 at 14:00 Isosorbide Dinitrate (Isordil) 10 mg TID GTB Last administered on 08/01/18 13:16; Admin Dose 10 MG; Start 07/27/18 at 09:00 Metoprolol Tartrate (Lopressor) 50 mg Q8 GTB Last administered on 08/01/18 06:40; Admin Dose 50 MG; Start 07/27/18 at 14:00 Multivitamins (Multivitamin) 30 ml DAILY GTB Last administered on 08/01/18 08:58; Admin Dose 30 ML; Start 07/27/18 at 09:00 Ondansetron HCl (Zofran Tab) 4 mg Q4H PRN GTB NAUSEA AND/OR VOMITING; Start 07/27/18 at 09:00 Senna (Senokot) 1 tab BID GTB Last administered on 08/01/18 08:59; Admin Dose 1 TAB; Start 07/27/18 at 09:00 Tramadol HCl (Ultram) 50 mg Q6H PRN GTB PAIN LEVEL 4-7; Start 07/27/18 at 09:00 Miscellaneous Information 1 ea NOTE XX ; Start 07/27/18 at 09:00 Glucose (Glutose) 15 gm Q15M PRN PO DECREASED GLUCOSE; Start 07/27/18 at 09:00 Glucose (Glutose) 22.5 gm Q15M PRN PO DECREASED GLUCOSE; Start 07/27/18 at 09:00 Dextrose (D50w Syringe) 25 ml Q15M PRN IV DECREASED GLUCOSE; Start 07/27/18 at 09:00 Dextrose (D50w Syringe) 50 ml Q15M PRN IV DECREASED GLUCOSE; Start 07/27/18 at 09:00 Glucagon (Glucagen) 1 mg Q15M PRN IM DECREASED GLUCOSE; Start 07/27/18 at 09:00 Glucose (Glutose) 15 gm Q15M PRN BUCCAL DECREASED GLUCOSE; Start 07/27/18 at 09:00 Insulin Human NPH (Humulin N) 18 unit DAILY@0900 SC Last administered on 08/01/18 09:01; Admin Dose 18 UNIT; Start 07/29/18 at 09:00 Insulin Aspart (Novolog Insulin Pen) NOVOLOG *MODERATE* ALGORI... Q6 SC Last administered on 08/01/18at 12:11; Admin Dose 2 UNIT; Start 07/31/18 at 18:00 Prednisone (Prednisone) 10 mg DAILY GTB Last administered on 08/01/18 08:59; Admin Dose 10 MG; Start 08/01/18 at 09:00 BART MONTOYA August 01, 2018 14:59
--- NOTE | 2018-08-01 18:13 | CONS ---
Assessment/Plan Assessment/Plan Assessment/Plan (Daily) 1. Uremia with BUN rising to 100, Cr normal 3. ITP 4. severe thrombocytopenia 5. accelerated HTN 6. VDRF s/p Tracheostomy 7. Dysphagia S/p G tube Plan: Continue Hydralazine 50mg PO Q8 hr and MTP 50mg pO Q 8 hr Na 135, BUN/Cr 64/0.78 BP stable - prednisone 10mg NGtube po daily - plan is to d/c it on Saturday will follow up Consultation Date/Type/Reason Admit Date/Time Jul 19, 2018 at 18:40 Initial Consult Date 07/22/18 Type of Consult NEPHROLOGY Requesting Provider: LES TRENT Date/Time of Note DATE: 08/01/18 TIME: 18:13 Exam/Review of Systems Exam Vitals Vital Signs Date Temp Pulse Resp B/P (MAP) Pulse Ox O2 O2 Flow FiO2 Time Delivery Rate 08/01/18 67 16 100 35 16:55 08/01/18 98.5 107/59 Mechanical 15:28 (75) Ventilator Intake and Output 07/31/18 07/31/18 08/01/18 1515:00 23:00 07:00 IntakeIntake Total 1230 ml 1230 ml OutputOutput Total 880 ml 400 ml BalanceBalance 350 ml 830 ml Exam Constitutional: alert, awake + tracheostomy Respiratory: clear to auscultation, normal air movement, diminished breath sounds Cardiovascular: regular rate and rhythm, nl pulses Gastrointestinal: soft, non-tender, + g tube in place Musculoskeletal: nl extremities to inspection, muscle weakness, swelling Extremities: normal pulses Neurological: non focal, Results Result Diagram: 08/01/18 0505 08/01/18 0504 Results 24hrs Laboratory Tests Test 07/31/18 21:48 08/01/18 00:43 08/01/18 05:04 08/01/18 05:05 Bedside Glucose 249 H 249 H Sodium Level 135 Potassium Level 4.2 Chloride Level 92 L Carbon Dioxide Level 39 H Anion Gap 4 L Blood Urea Nitrogen 64 H Creatinine 0.78 Est Glomerular Filtrat > 60 Rate mL/min Glucose Level 156 Calcium Level 8.0 L White Blood Count 5.2 Red Blood Count 2.55 L Hemoglobin 6.9 *L Hematocrit 22.7 L Mean Corpuscular Volume 89.0 Mean Corpuscular 27.1 L Hemoglobin Mean Corpuscular 30.4 L Hemoglobin Concent Red Cell Distribution 19.0 H Width Platelet Count 33 L Mean Platelet Volume 12.3 H Immature Granulocytes % 1.100 H Neutrophils % 78.9 H Lymphocytes % 11.5 L Monocytes % 7.7 Eosinophils % 0.6 Basophils % 0.2 Nucleated Red Blood 0.6 H Cells % Immature Granulocytes # 0.060 H Neutrophils # 4.1 Lymphocytes # 0.6 L Monocytes # 0.4 Eosinophils # 0.0 Basophils # 0.0 Nucleated Red Blood 0.0 Cells # Test 08/01/18 06:42 08/01/18 08:57 08/01/18 12:01 08/01/18 17:36 Bedside Glucose 166 152 151 181 Medications Medication Current Medications IV Flush (NS 3 ml) 3 ml PER PROTOCOL IV ; Start 07/19/18 at 19:30 Ondansetron HCl (Zofran Inj) 4 mg Q6H PRN IV NAUSEA/VOMITING; Start 07/19/18 at 19:30 Morphine Sulfate (morphine) 2 mg Q4H PRN IV .PAIN 8-10 Last administered on 07/30/18at 21:19; Admin Dose 2 MG; Start 07/19/18 at 19:30 Ferrous Sulfate (Ferrous Sulfate (Ec)) 325 mg DAILY PO Last administered on 08/01/18at 08:59; Admin Dose 325 MG; Start 07/20/18 at 09:00; Stop 08/19/18 at 08:59 Nitroglycerin (Nitroglycerin (Sl Tab) 0.4 Mg) 1 tab [id number] PRN SL CHEST PAIN; Start 07/19/18 at 19:30 Miscellaneous Information (Pending Santyl Order For Wound Care) This patient pedro... PRN PRN XX WOUND CARE; Start 07/20/18 at 01:30 Lorazepam (Ativan) 0.5 mg Q6 PRN IV AGITATION/ANXIETY Last administered on 07/30/18at 05:31; Admin Dose 0.5 MG; Start 07/22/18 at 17:00 Lansoprazole (Prevacid) 30 mg DAILY@06 GTB Last administered on 08/01/18at 06:38; Admin Dose 30 MG; Start 07/25/18 at 06:00 Insulin Glargine (Lantus) 16 units BID SC Last administered on 08/01/18 09:01; Admin Dose 16 UNITS; Start 07/26/18 at 21:00 Acetaminophen (Tylenol Tab) 650 mg Q6H PRN GTB .PAIN 1-3 OR TEMP Last administered on 08/01/18 09:06; Admin Dose 650 MG; Start 07/27/18 at 09:00 Acetaminophen (Tylenol Tab) 650 mg Q6H PRN GTB MILD TO MODERATE PAIN; Start 07/27/18 at 09:00 Ascorbic Acid (Vitamin C) 500 mg DAILY GTB Last administered on 08/01/18 08:59; Admin Dose 500 MG; Start 07/27/18 at 09:00 Atorvastatin Calcium (Lipitor) 20 mg QHS GTB Last administered on 07/31/18 21:44; Admin Dose 20 MG; Start 07/27/18 at 21:00 Duloxetine HCl (Cymbalta) 30 mg DAILY GTB Last administered on 08/01/18 08:58; Admin Dose 30 MG; Start 07/27/18 at 09:00 Gabapentin (Neurontin) 400 mg Q8 GTB Last administered on 08/01/18 13:03; Admin Dose 400 MG; Start 07/27/18 at 14:00 Hydralazine HCl (Apresoline) 50 mg Q8 GTB Last administered on 08/01/18 06:39; Admin Dose 50 MG; Start 07/27/18 at 14:00 Isosorbide Dinitrate (Isordil) 10 mg TID GTB Last administered on 08/01/18 13:16; Admin Dose 10 MG; Start 07/27/18 at 09:00 Metoprolol Tartrate (Lopressor) 50 mg Q8 GTB Last administered on 08/01/18 06:40; Admin Dose 50 MG; Start 07/27/18 at 14:00 Multivitamins (Multivitamin) 30 ml DAILY GTB Last administered on 08/01/18 08:58; Admin Dose 30 ML; Start 07/27/18 at 09:00 Ondansetron HCl (Zofran Tab) 4 mg Q4H PRN GTB NAUSEA AND/OR VOMITING; Start 07/27/18 at 09:00 Senna (Senokot) 1 tab BID GTB Last administered on 08/01/18 08:59; Admin Dose 1 TAB; Start 07/27/18 at 09:00 Tramadol HCl (Ultram) 50 mg Q6H PRN GTB PAIN LEVEL 4-7; Start 07/27/18 at 09:00 Miscellaneous Information 1 ea NOTE XX ; Start 07/27/18 at 09:00 Glucose (Glutose) 15 gm Q15M PRN PO DECREASED GLUCOSE; Start 07/27/18 at 09:00 Glucose (Glutose) 22.5 gm Q15M PRN PO DECREASED GLUCOSE; Start 07/27/18 at 09:00 Dextrose (D50w Syringe) 25 ml Q15M PRN IV DECREASED GLUCOSE; Start 07/27/18 at 09:00 Dextrose (D50w Syringe) 50 ml Q15M PRN IV DECREASED GLUCOSE; Start 07/27/18 at 09:00 Glucagon (Glucagen) 1 mg Q15M PRN IM DECREASED GLUCOSE; Start 07/27/18 at 09:00 Glucose (Glutose) 15 gm Q15M PRN BUCCAL DECREASED GLUCOSE; Start 07/27/18 at 09:00 Insulin Aspart (Novolog Insulin Pen) NOVOLOG *MODERATE* ALGORI... Q6 SC Last administered on 08/01/18at 17:49; Admin Dose 4 UNIT; Start 07/31/18 at 18:00 Prednisone (Prednisone) 10 mg DAILY GTB Last administered on 08/01/18at 08:59; Admin Dose 10 MG; Start 08/01/18 at 09:00 Insulin Human NPH (Humulin N) 10 unit DAILY@0900 SC ; Start 08/02/18 at 09:00 OCTAVIO BOX MD August 01, 2018 18:13
[2018-08-01] MEDS: ATORVASTATIN 20 MG TAB GTB SCH (21:30)
[2018-08-02] VITALS (20 sets, daily range): BP systolic 113–136; BP diastolic 6–64; PULSE 60–72; RESP 14–22
[2018-08-02] MEDS: INSULIN ASPART [NOVOLOG] 3 ML PEN SC SCH ×4 (00:26→17:23)
[2018-08-02] MEDS: LANSOPRAZOLE 30 MG CAP GTB SCH (06:19)
[2018-08-02] MEDS: GABAPENTIN 400 MG CAP GTB SCH ×3 (06:19→22:23)
[2018-08-02] MEDS: METOPROLOL 50 MG TAB GTB SCH ×3 (06:20→22:23)
--- NOTE | 2018-08-02 06:55 | CONS ---
Assessment/Plan Assessment/Plan Problems: (1) Diabetes mellitus, type 2 Status: Chronic Comment: Despite weaning of prednisone to 10 mg daily, BG continues to be elevated in evenings. Plan was to decrease NPH from 18 to 10 units today but pt. rec'ed 18 yesterday w/ prednisone 10 mg and this was inadequate. Will increase lantus from 16 q12 to 18 q12 and increase NPH to 20 units qam w/ prednisone and monitor BG. Consultation Date/Type/Reason Admit Date/Time Jul 19, 2018 at 18:40 Initial Consult Date 07/24/18 Type of Consult Endocrinology Reason for Consultation T2DM management Requesting Provider: LES TRENT Date/Time of Note DATE: 08/02/18 TIME: 06:52 24 HR Interval Summary Subjective hx not possible: pt non-verbal Exam/Review of Systems Exam Vitals VS - Last 72 Hours, by Label Date Temp Pulse Resp B/P (MAP) Pulse Ox O2 O2 Flow FiO2 Time Delivery Rate 08/02/18 67 15 100 35 04:55 08/02/18 99.1 69 18 129/64 97 04:00 (85) 08/02/18 67 04:00 08/02/18 65 14 97 35 03:07 08/02/18 65 16 100 35 01:02 08/02/18 62 00:00 08/01/18 98.7 65 18 105/55 98 23:55 (72) 08/01/18 64 15 100 35 23:03 08/01/18 30 21:40 08/01/18 67 15 99 35 20:48 08/01/18 68 20:00 08/01/18 98.9 68 18 106/55 99 19:50 (72) 08/01/18 62 14 98 35 19:02 08/01/18 67 16 100 35 16:55 08/01/18 60 16:00 08/01/18 98.5 59 18 107/59 97 [employer] 15:28 (75) l Ventilato r 08/01/18 66 18 100 35 15:22 08/01/18 60 14 100 35 13:20 08/01/18 60 12:00 08/01/18 98.9 66 18 125/62 98 [employer] 11:33 (83) l Ventilato r 08/01/18 98 19 100 35 11:30 08/01/18 99.8 10:29 08/01/18 69 19 100 35 09:47 08/01/18 30 09:15 08/01/18 100.1 09:06 08/01/18 63 18 100 35 08:30 08/01/18 62 08:00 08/01/18 100.5 67 18 111/56 97 [employer] 07:08 (74) l Ventilato r 08/01/18 78 14 100 35 05:38 08/01/18 98.4 63 18 107/54 98 04:16 (71) 08/01/18 66 04:00 08/01/18 75 14 100 35 03:47 08/01/18 69 14 100 35 01:35 08/01/18 98.5 61 18 114/53 99 00:23 (73) 08/01/18 60 00:00 07/31/18 75 14 100 35 23:49 07/31/18 30 21:50 07/31/18 72 14 100 35 21:47 07/31/18 70 20:00 07/31/18 98.0 68 18 134/53 99 19:48 (80) 07/31/18 76 14 100 35 19:45 07/31/18 65 14 98 35 17:43 07/31/18 66 17:02 07/31/18 66 14 100 35 15:55 07/31/18 98.3 75 18 112/61 98 [employer] 15:19 (78) l Ventilato r 07/31/18 71 14:28 07/31/18 76 14 100 35 13:25 07/31/18 73 25 100 35 11:36 07/31/18 98.1 62 16 125/65 99 [employer] 11:05 (85) l Ventilato r 07/31/18 76 15 100 35 09:44 07/31/18 60 08:30 07/31/18 98.0 68 18 134/53 99 07:45 (80) 07/31/18 66 20 100 35 07:45 07/31/18 98.5 60 18 118/57 97 [employer] 07:09 (77) l Ventilato r 07/31/18 75 15 100 35 05:27 07/31/18 98.4 68 18 133/59 98 04:31 (83) 07/31/18 75 04:00 07/31/18 70 15 100 35 03:45 07/31/18 69 01:35 07/31/18 81 15 100 35 01:30 07/31/18 98.6 68 18 118/65 98 00:49 (82) 07/30/18 78 15 100 35 23:25 07/30/18 65 15 100 35 21:45 07/30/18 30 20:00 07/30/18 64 20:00 07/30/18 88 15 100 35 19:30 07/30/18 97.5 64 18 126/56 98 19:29 (79) 07/30/18 65 22 100 35 17:47 07/30/18 63 16:45 07/30/18 62 23 100 35 15:59 07/30/18 98.6 63 16 135/73 95 15:30 (93) 07/30/18 77 19 99 35 14:04 07/30/18 133/75 13:52 (94) 07/30/18 66 12:45 07/30/18 98.1 61 16 101/49 99 11:31 (66) 07/30/18 64 09:14 07/30/18 63 16 96 35 08:43 07/30/18 99.4 62 17 105/51 91 07:49 (69) 07/30/18 60 17 98 35 07:00 Vital Signs Date Temp Pulse Resp B/P (MAP) Pulse Ox O2 O2 Flow FiO2 Time Delivery Rate 08/02/18 67 15 100 35 04:55 08/02/18 99.1 129/64 04:00 (85) 08/01/18 Mechanical 15:28 Ventilator Intake and Output 08/01/18 08/01/18 08/02/18 1515:00 23:00 07:00 IntakeIntake Total 1230 ml OutputOutput Total 950 ml BalanceBalance 280 ml Constitutional: non-verbal, frail, obese; No alert Respiratory: clear to auscultation, normal air movement Cardiovascular: regular rate and rhythm; No edema, No murmurs/extra sounds, No rub Gastrointestinal: soft, nl liver, spleen, non-tender, bowel sounds; No mass, No rebound or guarding Musculoskeletal: 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) Extremities: No cyanosis, No clubbing, No edema Neurological: unresponsive Additional Comments Bedside Glucose - 72 Hours Test 07/30/18 07:49 07/30/18 12:53 07/30/18 17:16 07/30/18 21:17 Bedside 146 196 199 239 Glucose mg/dL (70-220) mg/dL (70-220) mg/dL (70-220) mg/dL (70-220) H Test 07/31/18 01:40 07/31/18 05:02 07/31/18 08:06 07/31/18 17:30 Bedside 203 169 194 311 Glucose mg/dL (70-220) mg/dL (70-220) mg/dL (70-220) mg/dL (70-220) H Test 07/31/18 21:48 08/01/18 00:43 08/01/18 06:42 08/01/18 08:57 Bedside 249 249 166 152 Glucose mg/dL (70-220) mg/dL (70-220) mg/dL (70-220) mg/dL (70-220) H H Test 08/01/18 12:01 08/01/18 17:36 08/01/18 21:33 08/02/18 00:23 Bedside 151 181 224 236 Glucose mg/dL (70-220) mg/dL (70-220) mg/dL (70-220) mg/dL (70-220) H H Test 08/02/18 06:26 Bedside 189 Glucose mg/dL (70-220) Results Result Diagram: 08/01/18 0505 08/01/18 0504 Results 24hrs Laboratory Tests Test 08/01/18 08:57 08/01/18 12:01 08/01/18 17:36 08/01/18 21:33 Bedside Glucose 152 151 181 224 H Test 08/02/18 00:23 08/02/18 05:28 08/02/18 06:26 Bedside Glucose 236 H 189 White Blood Count Pending Red Blood Count Pending Hemoglobin Pending Hematocrit Pending Mean Corpuscular Volume Pending Mean Corpuscular Pending Hemoglobin Mean Corpuscular Pending Hemoglobin Concent Red Cell Distribution Pending Width Platelet Count Pending Mean Platelet Volume Pending Medications Medication Current Medications IV Flush (NS 3 ml) 3 ml PER PROTOCOL IV ; Start 07/19/18 at 19:30 Ondansetron HCl (Zofran Inj) 4 mg Q6H PRN IV NAUSEA/VOMITING; Start 07/19/18 at 19:30 Morphine Sulfate (morphine) 2 mg Q4H PRN IV .PAIN 8-10 Last administered on 07/30/18 21:19; Admin Dose 2 MG; Start 07/19/18 at 19:30 Ferrous Sulfate (Ferrous Sulfate (Ec)) 325 mg DAILY PO Last administered on 08/01/18 08:59; Admin Dose 325 MG; Start 07/20/18 at 09:00; Stop 08/19/18 at 08:59 Nitroglycerin (Nitroglycerin (Sl Tab) 0.4 Mg) 1 tab [id number] PRN SL CHEST PAIN; Start 07/19/18 at 19:30 Miscellaneous Information (Pending Santyl Order For Wound Care) This patient pedro... PRN PRN XX WOUND CARE; Start 07/20/18 at 01:30 Lorazepam (Ativan) 0.5 mg Q6 PRN IV AGITATION/ANXIETY Last administered on 07/30/18 05:31; Admin Dose 0.5 MG; Start 07/22/18 at 17:00 Lansoprazole (Prevacid) 30 mg DAILY@06 GTB Last administered on 08/02/18 06:19; Admin Dose 30 MG; Start 07/25/18 at 06:00 Acetaminophen (Tylenol Tab) 650 mg Q6H PRN GTB .PAIN 1-3 OR TEMP Last administered on 08/01/18 09:06; Admin Dose 650 MG; Start 07/27/18 at 09:00 Acetaminophen (Tylenol Tab) 650 mg Q6H PRN GTB MILD TO MODERATE PAIN; Start 07/27/18 at 09:00 Ascorbic Acid (Vitamin C) 500 mg DAILY GTB Last administered on 08/01/18 08:59; Admin Dose 500 MG; Start 07/27/18 at 09:00 Atorvastatin Calcium (Lipitor) 20 mg QHS GTB Last administered on 08/01/18 21:30; Admin Dose 20 MG; Start 07/27/18 at 21:00 Duloxetine HCl (Cymbalta) 30 mg DAILY GTB Last administered on 08/01/18 08:58; Admin Dose 30 MG; Start 07/27/18 at 09:00 Gabapentin (Neurontin) 400 mg Q8 GTB Last administered on 08/02/18 06:19; Admin Dose 400 MG; Start 07/27/18 at 14:00 Hydralazine HCl (Apresoline) 50 mg Q8 GTB Last administered on 08/02/18 06:20; Admin Dose 50 MG; Start 07/27/18 at 14:00 Isosorbide Dinitrate (Isordil) 10 mg TID GTB Last administered on 08/01/18 21:30; Admin Dose 10 MG; Start 07/27/18 at 09:00 Metoprolol Tartrate (Lopressor) 50 mg Q8 GTB Last administered on 08/02/18 06:20; Admin Dose 50 MG; Start 07/27/18 at 14:00 Multivitamins (Multivitamin) 30 ml DAILY GTB Last administered on 08/01/18 08:58; Admin Dose 30 ML; Start 07/27/18 at 09:00 Ondansetron HCl (Zofran Tab) 4 mg Q4H PRN GTB NAUSEA AND/OR VOMITING; Start 07/27/18 at 09:00 Senna (Senokot) 1 tab BID GTB Last administered on 08/01/18 21:30; Admin Dose 1 TAB; Start 07/27/18 at 09:00 Tramadol HCl (Ultram) 50 mg Q6H PRN GTB PAIN LEVEL 4-7; Start 07/27/18 at 09:00 Miscellaneous Information 1 ea NOTE XX ; Start 07/27/18 at 09:00 Glucose (Glutose) 15 gm Q15M PRN PO DECREASED GLUCOSE; Start 07/27/18 at 09:00 Glucose (Glutose) 22.5 gm Q15M PRN PO DECREASED GLUCOSE; Start 07/27/18 at 09:00 Dextrose (D50w Syringe) 25 ml Q15M PRN IV DECREASED GLUCOSE; Start 07/27/18 at 09:00 Dextrose (D50w Syringe) 50 ml Q15M PRN IV DECREASED GLUCOSE; Start 07/27/18 at 09:00 Glucagon (Glucagen) 1 mg Q15M PRN IM DECREASED GLUCOSE; Start 07/27/18 at 09:00 Glucose (Glutose) 15 gm Q15M PRN BUCCAL DECREASED GLUCOSE; Start 07/27/18 at 09:00 Insulin Aspart (Novolog Insulin Pen) NOVOLOG *MODERATE* ALGORI... Q6 SC Last administered on 5/4/19at 06:30; Admin Dose 4 UNIT; Start 07/31/18 at 18:00 Prednisone (Prednisone) 10 mg DAILY GTB Last administered on 08/01/18at 08:59; Admin Dose 10 MG; Start 08/01/18 at 09:00 Insulin Glargine (Lantus) 18 units BID SC ; Start 08/02/18 at 09:00 Insulin Human NPH (Humulin N) 20 unit DAILY@0900 SC ; Start 08/02/18 at 09:00 MILKA ROTH MD August 02, 2018 06:55
--- NOTE | 2018-08-02 08:09 | CONS ---
Assessment/Plan Assessment/Plan Assessment/Plan (Daily) 1. Uremia with BUN rising to 100, Cr normal 3. ITP 4. severe thrombocytopenia 5. accelerated HTN 6. VDRF s/p Tracheostomy 7. Dysphagia S/p G tube Plan: Continue Hydralazine 50mg PO Q8 hr and MTP 50mg pO Q 8 hr Na 135, BUN/Cr 64/0.78 BP stable - prednisone 10mg NGtube po daily - plan is to d/c it on Saturday will follow up Consultation Date/Type/Reason Admit Date/Time Jul 19, 2018 at 18:40 Initial Consult Date 07/22/18 Type of Consult NEPHROLOGY Requesting Provider: LES TRENT Date/Time of Note DATE: 08/02/18 TIME: 08:09 Exam/Review of Systems Exam Vitals Vital Signs Date Temp Pulse Resp B/P (MAP) Pulse Ox O2 O2 Flow FiO2 Time Delivery Rate 08/02/18 99.1 65 20 124/61 99 07:58 (82) 08/02/18 35 07:10 08/01/18 Mechanical 15:28 Ventilator Intake and Output 08/01/18 08/01/18 08/02/18 1515:00 23:00 07:00 IntakeIntake Total 1230 ml OutputOutput Total 950 ml BalanceBalance 280 ml Exam Constitutional: alert, awake + tracheostomy Respiratory: clear to auscultation, normal air movement, diminished breath sounds Cardiovascular: regular rate and rhythm, nl pulses Gastrointestinal: soft, non-tender, + g tube in place Musculoskeletal: nl extremities to inspection, muscle weakness, swelling Extremities: normal pulses Neurological: non focal, Results Result Diagram: 08/02/18 0528 08/02/18 0528 Results 24hrs Laboratory Tests Test 08/01/18 08:57 08/01/18 12:01 08/01/18 17:36 08/01/18 21:33 Bedside Glucose 152 151 181 224 H Test 08/02/18 00:23 08/02/18 05:28 08/02/18 06:26 08/02/18 07:58 Bedside Glucose 236 H 189 192 White Blood Count 5.7 Red Blood Count 2.99 L Hemoglobin 8.1 L Hematocrit 26.1 L Mean Corpuscular Volume 87.3 Mean Corpuscular 27.1 L Hemoglobin Mean Corpuscular 31.0 L Hemoglobin Concent Red Cell Distribution 18.3 H Width Platelet Count 31 L Mean Platelet Volume 13.0 H Immature Granulocytes % 1.100 H Neutrophils % 80.5 H Lymphocytes % 10.7 L Monocytes % 7.0 Eosinophils % 0.5 Basophils % 0.2 Nucleated Red Blood 0.5 H Cells % Immature Granulocytes # 0.060 H Neutrophils # 4.6 Lymphocytes # 0.6 L Monocytes # 0.4 Eosinophils # 0.0 Basophils # 0.0 Nucleated Red Blood 0.0 Cells # Sodium Level 136 Potassium Level 3.9 Chloride Level 93 L Carbon Dioxide Level 37 H Anion Gap 6 Blood Urea Nitrogen 62 H Creatinine 0.80 Est Glomerular Filtrat > 60 Rate mL/min Glucose Level 183 Calcium Level 8.3 L Medications Medication Current Medications IV Flush (NS 3 ml) 3 ml PER PROTOCOL IV ; Start 07/19/18 at 19:30 Ondansetron HCl (Zofran Inj) 4 mg Q6H PRN IV NAUSEA/VOMITING; Start 07/19/18 at 19:30 Morphine Sulfate (morphine) 2 mg Q4H PRN IV .PAIN 8-10 Last administered on 07/30/18at 21:19; Admin Dose 2 MG; Start 07/19/18 at 19:30 Ferrous Sulfate (Ferrous Sulfate (Ec)) 325 mg DAILY PO Last administered on 08/01/18at 08:59; Admin Dose 325 MG; Start 07/20/18 at 09:00; Stop 08/19/18 at 08:59 Nitroglycerin (Nitroglycerin (Sl Tab) 0.4 Mg) 1 tab [id number] PRN SL CHEST PAIN; Start 07/19/18 at 19:30 Miscellaneous Information (Pending Santyl Order For Wound Care) This patient pedro... PRN PRN XX WOUND CARE; Start 07/20/18 at 01:30 Lorazepam (Ativan) 0.5 mg Q6 PRN IV AGITATION/ANXIETY Last administered on 07/30/18at 05:31; Admin Dose 0.5 MG; Start 07/22/18 at 17:00 Lansoprazole (Prevacid) 30 mg DAILY@06 GTB Last administered on 08/02/18at 06:19; Admin Dose 30 MG; Start 07/25/18 at 06:00 Acetaminophen (Tylenol Tab) 650 mg Q6H PRN GTB .PAIN 1-3 OR TEMP Last administered on 08/01/18 09:06; Admin Dose 650 MG; Start 07/27/18 at 09:00 Acetaminophen (Tylenol Tab) 650 mg Q6H PRN GTB MILD TO MODERATE PAIN; Start 07/27/18 at 09:00 Ascorbic Acid (Vitamin C) 500 mg DAILY GTB Last administered on 08/01/18 08:59; Admin Dose 500 MG; Start 07/27/18 at 09:00 Atorvastatin Calcium (Lipitor) 20 mg QHS GTB Last administered on 08/01/18 21:30; Admin Dose 20 MG; Start 07/27/18 at 21:00 Duloxetine HCl (Cymbalta) 30 mg DAILY GTB Last administered on 08/01/18 08:58; Admin Dose 30 MG; Start 07/27/18 at 09:00 Gabapentin (Neurontin) 400 mg Q8 GTB Last administered on 08/02/18 06:19; Admin Dose 400 MG; Start 07/27/18 at 14:00 Hydralazine HCl (Apresoline) 50 mg Q8 GTB Last administered on 08/02/18 06:20; Admin Dose 50 MG; Start 07/27/18 at 14:00 Isosorbide Dinitrate (Isordil) 10 mg TID GTB Last administered on 08/01/18 21: 30; Admin Dose 10 MG; Start 07/27/18 at 09:00 Metoprolol Tartrate (Lopressor) 50 mg Q8 GTB Last administered on 08/02/18 06:20; Admin Dose 50 MG; Start 07/27/18 at 14:00 Multivitamins (Multivitamin) 30 ml DAILY GTB Last administered on 08/01/18 08:58; Admin Dose 30 ML; Start 07/27/18 at 09:00 Ondansetron HCl (Zofran Tab) 4 mg Q4H PRN GTB NAUSEA AND/OR VOMITING; Start 07/27/18 at 09:00 Senna (Senokot) 1 tab BID GTB Last administered on 08/01/18 21:30; Admin Dose 1 TAB; Start 07/27/18 at 09:00 Tramadol HCl (Ultram) 50 mg Q6H PRN GTB PAIN LEVEL 4-7; Start 07/27/18 at 09:00 Miscellaneous Information 1 ea NOTE XX ; Start 07/27/18 at 09:00 Glucose (Glutose) 15 gm Q15M PRN PO DECREASED GLUCOSE; Start 07/27/18 at 09:00 Glucose (Glutose) 22.5 gm Q15M PRN PO DECREASED GLUCOSE; Start 07/27/18 at 09:00 Dextrose (D50w Syringe) 25 ml Q15M PRN IV DECREASED GLUCOSE; Start 07/27/18 at 09:00 Dextrose (D50w Syringe) 50 ml Q15M PRN IV DECREASED GLUCOSE; Start 07/27/18 at 09:00 Glucagon (Glucagen) 1 mg Q15M PRN IM DECREASED GLUCOSE; Start 07/27/18 at 09:00 Glucose (Glutose) 15 gm Q15M PRN BUCCAL DECREASED GLUCOSE; Start 07/27/18 at 09:00 Insulin Aspart (Novolog Insulin Pen) NOVOLOG *MODERATE* ALGORI... Q6 SC Last administered on 08/02/18at 06:30; Admin Dose 4 UNIT; Start 07/31/18 at 18:00 Prednisone (Prednisone) 10 mg DAILY GTB Last administered on 08/01/18at 08:59; Admin Dose 10 MG; Start 08/01/18 at 09:00 Insulin Glargine (Lantus) 18 units BID SC ; Start 08/02/18 at 09:00 Insulin Human NPH (Humulin N) 20 unit DAILY@0900 SC ; Start 08/02/18 at 09:00 OCTAVIO BOX MD August 02, 2018 08:09
[2018-08-02] MEDS: SENNA TAB GTB SCH ×2 (08:39→22:23)
[2018-08-02] MEDS: FERROUS SULFATE (EC) 325 MG TAB PO SCH (08:39)
[2018-08-02] MEDS: MULTIVITAMINS 30 ML CUP GTB SCH (08:39)
[2018-08-02] MEDS: DULOXETINE 30 MG CAP DR GTB SCH (08:39)
[2018-08-02] MEDS: ASCORBIC ACID 500 MG TAB GTB SCH (08:39)
[2018-08-02] MEDS: predniSONE 10 MG TAB GTB SCH (08:39)
[2018-08-02] MEDS: ISOSORBIDE DINITRATE 10 MG TAB GTB SCH ×3 (08:40→22:23)
[2018-08-02] MEDS: NPH, HUMAN INSULIN ISOPHANE 3ML VIAL SC SCH (08:43)
[2018-08-02] MEDS: INSULIN GLARGINE [LANTus] (100 UNITS/ML) SYG SC SCH ×2 (08:48→22:37)
[2018-08-02] MEDS ORDERED: NPH, HUMAN INSULIN ISOPHANE 3ML VIAL SC SCH (09:00)
--- NOTE | 2018-08-02 11:37 | PN ---
Date/Time of Note Date/Time of Note DATE: 08/02/18 TIME: 11:37 Assessment/Plan VTE Prophylaxis Risk score (from [facility])>0 risk: 3 SCD applied (from [facility] [place]): No SCD contraindicated: other Pharmacological prophylaxis: LMWH Lines/Catheters IV Catheter Type (from [facility]): [place] Urinary Cath still in place: No Assessment/Plan Hospital Course 1) thrombocytopenia - per Hem/Onc - 2) respiratory failure - continue ventilator 3) coronary artery disease - stable at this point 4- DM - Endocrinology follows Hyperglycemia 2/2 to above - Glycemic consult Result Diagram: 08/02/1828 08/02/1828 Results 24hrs Laboratory Tests Test 08/01/18 12:01 08/01/18 17:36 08/01/18 21:33 08/02/18 00:23 Bedside Glucose 151 181 224 H 236 H Test 08/02/18 05:28 08/02/18 06:26 08/02/18 07:58 White Blood Count 5.7 Red Blood Count 2.99 L Hemoglobin 8.1 L Hematocrit 26.1 L Mean Corpuscular Volume 87.3 Mean Corpuscular 27.1 L Hemoglobin Mean Corpuscular 31.0 L Hemoglobin Concent Red Cell Distribution 18.3 H Width Platelet Count 31 L Mean Platelet Volume 13.0 H Immature Granulocytes % 1.100 H Neutrophils % 80.5 H Lymphocytes % 10.7 L Monocytes % 7.0 Eosinophils % 0.5 Basophils % 0.2 Nucleated Red Blood 0.5 H Cells % Immature Granulocytes # 0.060 H Neutrophils # 4.6 Lymphocytes # 0.6 L Monocytes # 0.4 Eosinophils # 0.0 Basophils # 0.0 Nucleated Red Blood 0.0 Cells # Sodium Level 136 Potassium Level 3.9 Chloride Level 93 L Carbon Dioxide Level 37 H Anion Gap 6 Blood Urea Nitrogen 62 H Creatinine 0.80 Est Glomerular Filtrat > 60 Rate mL/min Glucose Level 183 Calcium Level 8.3 L Bedside Glucose 189 192 Subjective 24 Hr Interval Summary Free Text/Dictation Patient doing well on vent via trach Exam/Review of Systems Exam Vitals Vital Signs Date Temp Pulse Resp B/P (MAP) Pulse Ox O2 O2 Flow FiO2 Time Delivery Rate 08/02/18 73 22 100 35 11:05 08/02/18 99.1 124/61 07:58 (82) 08/01/18 Mechanical 15:28 Ventilator Intake and Output 08/01/18 08/01/18 08/02/18 1515:00 23:00 07:00 IntakeIntake Total 1230 ml OutputOutput Total 950 ml BalanceBalance 280 ml Constitutional: well developed Head: normocephalic, atraumatic Neck: supple Respiratory: diminished breath sounds Cardiovascular: regular rate and rhythm Gastrointestinal: soft, non-tender Extremities: normal pulses Results Results 24hrs Laboratory Tests Test 08/01/18 12:01 08/01/18 17:36 08/01/18 21:33 08/02/18 00:23 Bedside Glucose 151 181 224 H 236 H Test 08/02/18 05:28 08/02/18 06:26 08/02/18 07:58 White Blood Count 5.7 Red Blood Count 2.99 L Hemoglobin 8.1 L Hematocrit 26.1 L Mean Corpuscular Volume 87.3 Mean Corpuscular 27.1 L Hemoglobin Mean Corpuscular 31.0 L Hemoglobin Concent Red Cell Distribution 18.3 H Width Platelet Count 31 L Mean Platelet Volume 13.0 H Immature Granulocytes % 1.100 H Neutrophils % 80.5 H Lymphocytes % 10.7 L Monocytes % 7.0 Eosinophils % 0.5 Basophils % 0.2 Nucleated Red Blood 0.5 H Cells % Immature Granulocytes # 0.060 H Neutrophils # 4.6 Lymphocytes # 0.6 L Monocytes # 0.4 Eosinophils # 0.0 Basophils # 0.0 Nucleated Red Blood 0.0 Cells # Sodium Level 136 Potassium Level 3.9 Chloride Level 93 L Carbon Dioxide Level 37 H Anion Gap 6 Blood Urea Nitrogen 62 H Creatinine 0.80 Est Glomerular Filtrat > 60 Rate mL/min Glucose Level 183 Calcium Level 8.3 L Bedside Glucose 189 192 Medications Medication Current Medications IV Flush (NS 3 ml) 3 ml PER PROTOCOL IV ; Start 07/19/18 at 19:30 Ondansetron HCl (Zofran Inj) 4 mg Q6H PRN IV NAUSEA/VOMITING; Start 07/19/18 at 19:30 Morphine Sulfate (morphine) 2 mg Q4H PRN IV .PAIN 8-10 Last administered on 07/30/18at 21:19; Admin Dose 2 MG; Start 07/19/18 at 19:30 Ferrous Sulfate (Ferrous Sulfate (Ec)) 325 mg DAILY PO Last administered on 08/02/18 08:39; Admin Dose 325 MG; Start 07/20/18 at 09:00; Stop 08/19/18 at 08:59 Nitroglycerin (Nitroglycerin (Sl Tab) 0.4 Mg) 1 tab [id number] PRN SL CHEST PAIN; Start 07/19/18 at 19:30 Miscellaneous Information (Pending Santyl Order For Wound Care) This patient pedro... PRN PRN XX WOUND CARE; Start 07/20/18 at 01:30 Lorazepam (Ativan) 0.5 mg Q6 PRN IV AGITATION/ANXIETY Last administered on 07/30/18 05:31; Admin Dose 0.5 MG; Start 07/22/18 at 17:00 Lansoprazole (Prevacid) 30 mg DAILY@06 GTB Last administered on 08/02/18 06:19; Admin Dose 30 MG; Start 07/25/18 at 06:00 Acetaminophen (Tylenol Tab) 650 mg Q6H PRN GTB .PAIN 1-3 OR TEMP Last administered on 08/01/18 09:06; Admin Dose 650 MG; Start 07/27/18 at 09:00 Acetaminophen (Tylenol Tab) 650 mg Q6H PRN GTB MILD TO MODERATE PAIN; Start 07/27/18 at 09:00 Ascorbic Acid (Vitamin C) 500 mg DAILY GTB Last administered on 08/02/18 08:39; Admin Dose 500 MG; Start 07/27/18 at 09:00 Atorvastatin Calcium (Lipitor) 20 mg QHS GTB Last administered on 08/01/18 21:30; Admin Dose 20 MG; Start 07/27/18 at 21:00 Duloxetine HCl (Cymbalta) 30 mg DAILY GTB Last administered on 08/02/18 08:39; Admin Dose 30 MG; Start 07/27/18 at 09:00 Gabapentin (Neurontin) 400 mg Q8 GTB Last administered on 08/02/18 06:19; Admin Dose 400 MG; Start 07/27/18 at 14:00 Hydralazine HCl (Apresoline) 50 mg Q8 GTB Last administered on 08/02/18 06:20; Admin Dose 50 MG; Start 07/27/18 at 14:00 Isosorbide Dinitrate (Isordil) 10 mg TID GTB Last administered on 08/02/18 08:40; Admin Dose 10 MG; Start 07/27/18 at 09:00 Metoprolol Tartrate (Lopressor) 50 mg Q8 GTB Last administered on 08/02/18 06:20; Admin Dose 50 MG; Start 07/27/18 at 14:00 Multivitamins (Multivitamin) 30 ml DAILY GTB Last administered on 08/02/18 08:39; Admin Dose 30 ML; Start 07/27/18 at 09:00 Ondansetron HCl (Zofran Tab) 4 mg Q4H PRN GTB NAUSEA AND/OR VOMITING; Start 07/27/18 at 09:00 Senna (Senokot) 1 tab BID GTB Last administered on 08/02/18 08:39; Admin Dose 1 TAB; Start 07/27/18 at 09:00 Tramadol HCl (Ultram) 50 mg Q6H PRN GTB PAIN LEVEL 4-7; Start 07/27/18 at 09:00 Miscellaneous Information 1 ea NOTE XX ; Start 07/27/18 at 09:00 Glucose (Glutose) 15 gm Q15M PRN PO DECREASED GLUCOSE; Start 07/27/18 at 09:00 Glucose (Glutose) 22.5 gm Q15M PRN PO DECREASED GLUCOSE; Start 07/27/18 at 09:00 Dextrose (D50w Syringe) 25 ml Q15M PRN IV DECREASED GLUCOSE; Start 07/27/18 at 09:00 Dextrose (D50w Syringe) 50 ml Q15M PRN IV DECREASED GLUCOSE; Start 07/27/18 at 09:00 Glucagon (Glucagen) 1 mg Q15M PRN IM DECREASED GLUCOSE; Start 07/27/18 at 09:00 Glucose (Glutose) 15 gm Q15M PRN BUCCAL DECREASED GLUCOSE; Start 07/27/18 at 09:00 Insulin Aspart (Novolog Insulin Pen) NOVOLOG *MODERATE* ALGORI... Q6 SC Last administered on 08/02/18 06:30; Admin Dose 4 UNIT; Start 07/31/18 at 18:00 Prednisone (Prednisone) 10 mg DAILY GTB Last administered on 08/02/18 08:39; Admin Dose 10 MG; Start 08/01/18 at 09:00 Insulin Glargine (Lantus) 18 units BID SC Last administered on 08/02/18at 08:48; Admin Dose 18 UNITS; Start 08/02/18 at 09:00 Insulin Human NPH (Humulin N) 20 unit DAILY@0900 SC Last administered on 08/02/18at 08:43; Admin Dose 20 UNIT; Start 08/02/18 at 09:00 JACKIE SHAVER August 02, 2018 11:37
--- NOTE | 2018-08-02 14:38 | CONS ---
Assessment/Plan Assessment/Plan Hospital Course (Demo Recall) IMPRESSION: 1. Permanent pacemaker with proper function at this time, primarily AV pacing. No signs of dysfunction at this time. 2. History of paroxysmal atrial fibrillation and atrial flutter, had been off anticoagulation due to severe thrombocytopenia, has been started on anticoagulation, which was stopped at this time due to severe thrombocytopenia. 3. Hypertension. 4. Dyslipidemia. 5. History of aortic valve replacement, bioprosthesis in 06/2017. 6. History of coronary artery disease, status post coronary artery bypass graft surgery in 06/2017 using AHUJA to LAD. 7. 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 8. Diabetes mellitus. 9. Dysphagia, status post G-tube. 10. Chronic respiratory failure, status post tracheostomy. 11.Thrombocytopenia-still severely depressed 12. anemia-s/p transfusion of PRBC's Recc: -Tele -Continue BB/hydralazine -Continue isordil -Holding antiplatelet/anticoagulation secondary to severe thrombocytopenia -Continue statin -Follow volume status closely with ongoing but improving increased BUN -Continue steroids/IVIG and follow plt count closely Consultation Date/Type/Reason Admit Date/Time Jul 19, 2018 at 18:40 Initial Consult Date 07/22/18 Type of Consult Cardiology Reason for Consultation CHF Requesting Provider: LES TRENT Date/Time of Note DATE: 08/02/18 TIME: 14:34 Exam/Review of Systems Vital Signs Vitals Vital Signs Date Temp Pulse Resp B/P (MAP) Pulse Ox O2 O2 Flow FiO2 Time Delivery Rate 08/02/18 72 12:01 08/02/18 98.3 14 136/6 (49) 100 11:36 08/02/18 35 11:05 08/01/18 Mechanical 15:28 Ventilator Intake and Output 08/01/18 08/01/18 08/02/18 1414:59 22:59 06:59 IntakeIntake Total 1230 ml 1230 ml OutputOutput Total 400 ml 950 ml BalanceBalance 830 ml 280 ml Exam Exam Review of Systems: CONSTITUTIONAL: No fevers, chills. PULMONARY: trached CARDIOVASCULAR: No chest pain/palpitations GASTROINTESTINAL: No nausea/vomiting. GENITOURINARY: No hematuria/dysuria. MUSCULOSKELETAL: No myagias/arthalgias. PSYCHIATRIC: The patient denies depression. NEUROLOGIC: lethargic Constitutional: other (sleeping) Head: normocephalic ENMT: mucosa pink and moist Neck: supple, jvd (9 cm watert) Respiratory: diminished breath sounds (at bases/B) Cardiovascular: regular rate and rhythm Gastrointestinal: soft, non-tender Musculoskeletal: muscle weakness (generalized) Extremities: other (Bilateral LE amputation) Labs Result Diagram: 08/02/1828 08/02/1828 Results 24hrs Laboratory Tests Test 08/01/18 17:36 08/01/18 21:33 08/02/18 00:23 08/02/18 05:28 Bedside Glucose 181 224 H 236 H White Blood Count 5.7 Red Blood Count 2.99 L Hemoglobin 8.1 L Hematocrit 26.1 L Mean Corpuscular Volume 87.3 Mean Corpuscular 27.1 L Hemoglobin Mean Corpuscular 31.0 L Hemoglobin Concent Red Cell Distribution 18.3 H Width Platelet Count 31 L Mean Platelet Volume 13.0 H Immature Granulocytes % 1.100 H Neutrophils % 80.5 H Lymphocytes % 10.7 L Monocytes % 7.0 Eosinophils % 0.5 Basophils % 0.2 Nucleated Red Blood 0.5 H Cells % Immature Granulocytes # 0.060 H Neutrophils # 4.6 Lymphocytes # 0.6 L Monocytes # 0.4 Eosinophils # 0.0 Basophils # 0.0 Nucleated Red Blood 0.0 Cells # Sodium Level 136 Potassium Level 3.9 Chloride Level 93 L Carbon Dioxide Level 37 H Anion Gap 6 Blood Urea Nitrogen 62 H Creatinine 0.80 Est Glomerular Filtrat > 60 Rate mL/min Glucose Level 183 Calcium Level 8.3 L Test 08/02/18 06:26 08/02/18 07:58 08/02/18 12:07 Bedside Glucose 189 192 175 Medications Medications Current Medications IV Flush (NS 3 ml) 3 ml PER PROTOCOL IV ; Start 07/19/18 at 19:30 Ondansetron HCl (Zofran Inj) 4 mg Q6H PRN IV NAUSEA/VOMITING; Start 07/19/18 at 19:30 Morphine Sulfate (morphine) 2 mg Q4H PRN IV .PAIN 8-10 Last administered on 07/30/18at 21:19; Admin Dose 2 MG; Start 07/19/18 at 19:30 Ferrous Sulfate (Ferrous Sulfate (Ec)) 325 mg DAILY PO Last administered on 08/02/18at 08:39; Admin Dose 325 MG; Start 07/20/18 at 09:00; Stop 08/19/18 at 08:59 Nitroglycerin (Nitroglycerin (Sl Tab) 0.4 Mg) 1 tab [id number] PRN SL CHEST PAIN; Start 07/19/18 at 19:30 Miscellaneous Information (Pending Santyl Order For Wound Care) This patient pedro... PRN PRN XX WOUND CARE; Start 07/20/18 at 01:30 Lorazepam (Ativan) 0.5 mg Q6 PRN IV AGITATION/ANXIETY Last administered on 07/30/18 05:31; Admin Dose 0.5 MG; Start 07/22/18 at 17:00 Lansoprazole (Prevacid) 30 mg DAILY@06 GTB Last administered on 08/02/18 06:19; Admin Dose 30 MG; Start 07/25/18 at 06:00 Acetaminophen (Tylenol Tab) 650 mg Q6H PRN GTB .PAIN 1-3 OR TEMP Last administered on 08/01/18 09:06; Admin Dose 650 MG; Start 07/27/18 at 09:00 Acetaminophen (Tylenol Tab) 650 mg Q6H PRN GTB MILD TO MODERATE PAIN; Start 07/27/18 at 09:00 Ascorbic Acid (Vitamin C) 500 mg DAILY GTB Last administered on 08/02/18 08:39; Admin Dose 500 MG; Start 07/27/18 at 09:00 Atorvastatin Calcium (Lipitor) 20 mg QHS GTB Last administered on 08/01/18 21:30; Admin Dose 20 MG; Start 07/27/18 at 21:00 Duloxetine HCl (Cymbalta) 30 mg DAILY GTB Last administered on 08/02/18 08:39; Admin Dose 30 MG; Start 07/27/18 at 09:00 Gabapentin (Neurontin) 400 mg Q8 GTB Last administered on 08/02/18 13:33; Admin Dose 400 MG; Start 07/27/18 at 14:00 Hydralazine HCl (Apresoline) 50 mg Q8 GTB Last administered on 08/02/18 13:34; Admin Dose 50 MG; Start 07/27/18 at 14:00 Isosorbide Dinitrate (Isordil) 10 mg TID GTB Last administered on 08/02/18 13:34; Admin Dose 10 MG; Start 07/27/18 at 09:00 Metoprolol Tartrate (Lopressor) 50 mg Q8 GTB Last administered on 08/02/18 13:34; Admin Dose 50 MG; Start 07/27/18 at 14:00 Multivitamins (Multivitamin) 30 ml DAILY GTB Last administered on 08/02/18 08:39; Admin Dose 30 ML; Start 07/27/18 at 09:00 Ondansetron HCl (Zofran Tab) 4 mg Q4H PRN GTB NAUSEA AND/OR VOMITING; Start 07/27/18 at 09:00 Senna (Senokot) 1 tab BID GTB Last administered on 08/02/18 08:39; Admin Dose 1 TAB; Start 07/27/18 at 09:00 Tramadol HCl (Ultram) 50 mg Q6H PRN GTB PAIN LEVEL 4-7; Start 07/27/18 at 09:00 Miscellaneous Information 1 ea NOTE XX ; Start 07/27/18 at 09:00 Glucose (Glutose) 15 gm Q15M PRN PO DECREASED GLUCOSE; Start 07/27/18 at 09:00 Glucose (Glutose) 22.5 gm Q15M PRN PO DECREASED GLUCOSE; Start 07/27/18 at 09:00 Dextrose (D50w Syringe) 25 ml Q15M PRN IV DECREASED GLUCOSE; Start 07/27/18 at 09:00 Dextrose (D50w Syringe) 50 ml Q15M PRN IV DECREASED GLUCOSE; Start 07/27/18 at 09:00 Glucagon (Glucagen) 1 mg Q15M PRN IM DECREASED GLUCOSE; Start 07/27/18 at 09:00 Glucose (Glutose) 15 gm Q15M PRN BUCCAL DECREASED GLUCOSE; Start 07/27/18 at 09:00 Insulin Aspart (Novolog Insulin Pen) NOVOLOG *MODERATE* ALGORI... Q6 SC Last administered on 08/02/18 12:10; Admin Dose 2 UNIT; Start 07/31/18 at 18:00 Prednisone (Prednisone) 10 mg DAILY GTB Last administered on 08/02/18 08:39; A dmin Dose 10 MG; Start 08/01/18 at 09:00 Insulin Glargine (Lantus) 18 units BID SC Last administered on 08/02/18at 08:48; Admin Dose 18 UNITS; Start 08/02/18 at 09:00 Insulin Human NPH (Humulin N) 20 unit DAILY@0900 SC Last administered on 08/02/18at 08:43; Admin Dose 20 UNIT; Start 08/02/18 at 09:00 RODGER MIRELES August 02, 2018 14:37
--- NOTE | 2018-08-02 15:33 | CONS ---
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 plt count at 37K, prednisone 80 mg daily (started on Saturday), will taper slowly as plt count allows, decrease to 70 mg -has been given IVIG 40 grams x 2 days -plt count is stable but he is on high doses of steroids, will likely give promacta if plt count doesnt improve. - 04/2018, platelets >200, since dx of ITP has been highest bout 60K, still low but in a safe range -will most likely consider Promacta as it is the easiest to administer and he has had so many complications, he would likely do better at a more stable plt count Patient is seen in collaboration with Dr Martinez Staff. Consultation Date/Type/Reason Admit Date/Time Jul 19, 2018 at 18:40 Initial Consult Date 07/24/18 Type of Consult ONCOLOGY Reason for Consultation THROMBOCYTOPENIA Requesting Provider: LES TRENT Date/Time of Note DATE: 08/02/18 TIME: 14:59 24 HR Interval Summary Free Text/Dictation NAD no bleeding reported from any body orifices no new events reported last night per staff Subjective hx not possible: pt non-verbal Constitutional: requiring O2 Exam/Review of Systems Exam Vitals Vital Signs Date Temp Pulse Resp B/P (MAP) Pulse Ox O2 O2 Flow FiO2 Time Delivery Rate 08/02/18 67 15 100 35 13:20 08/02/18 98.3 136/6 (49) 11:36 08/01/18 Mechanical 15:28 Ventilator Intake and Output 08/01/18 08/01/18 08/02/18 1515:00 23:00 07:00 IntakeIntake Total 1230 ml OutputOutput Total 950 ml BalanceBalance 280 ml Constitutional: well developed, non-verbal Psych: nl mood/affect Eyes: nl lids, nl sclera ENMT: nl external ears & nose Neck: other (trach intact) Respiratory: clear to auscultation, other Cardiovascular: nl pulses, other (s1s2) Gastrointestinal: soft, other (gt intact;) Musculoskeletal: muscle weakness, other Extremities: other (George BKA) Neurological: confused Lymph: nontender Results Result Diagram: 08/02/1852708/02/18527 Results 24hrs Laboratory Tests Test 08/01/18 17:36 08/01/18 21:33 08/02/18 00:23 08/02/18 05:28 Bedside Glucose 181 224 H 236 H White Blood Count 5.7 Red Blood Count 2.99 L Hemoglobin 8.1 L Hematocrit 26.1 L Mean Corpuscular Volume 87.3 Mean Corpuscular 27.1 L Hemoglobin Mean Corpuscular 31.0 L Hemoglobin Concent Red Cell Distribution 18.3 H Width Platelet Count 31 L Mean Platelet Volume 13.0 H Immature Granulocytes % 1.100 H Neutrophils % 80.5 H Lymphocytes % 10.7 L Monocytes % 7.0 Eosinophils % 0.5 Basophils % 0.2 Nucleated Red Blood 0.5 H Cells % Immature Granulocytes # 0.060 H Neutrophils # 4.6 Lymphocytes # 0.6 L Monocytes # 0.4 Eosinophils # 0.0 Basophils # 0.0 Nucleated Red Blood 0.0 Cells # Sodium Level 136 Potassium Level 3.9 Chloride Level 93 L Carbon Dioxide Level 37 H Anion Gap 6 Blood Urea Nitrogen 62 H Creatinine 0.80 Est Glomerular Filtrat > 60 Rate mL/min Glucose Level 183 Calcium Level 8.3 L Test 08/02/18 06:26 08/02/18 07:58 08/02/18 12:07 Bedside Glucose 189 192 175 Medications Medication Current Medications IV Flush (NS 3 ml) 3 ml PER PROTOCOL IV ; Start 07/19/18 at 19:30 Ondansetron HCl (Zofran Inj) 4 mg Q6H PRN IV NAUSEA/VOMITING; Start 07/19/18 at 19:30 Morphine Sulfate (morphine) 2 mg Q4H PRN IV .PAIN 8-10 Last administered on 07/30/18at 21:19; Admin Dose 2 MG; Start 07/19/18 at 19:30 Ferrous Sulfate (Ferrous Sulfate (Ec)) 325 mg DAILY PO Last administered on 08/02/18at 08:39; Admin Dose 325 MG; Start 07/20/18 at 09:00; Stop 08/19/18 at 08:59 Nitroglycerin (Nitroglycerin (Sl Tab) 0.4 Mg) 1 tab [id number] PRN SL CHEST PAIN; Start 07/19/18 at 19:30 [facility] This patient pedro... PRN PRN XX WOUND CARE; Start 07/20/18 at 01:30 Lorazepam (Ativan) 0.5 mg Q6 PRN IV AGITATION/ANXIETY Last administered on 05:31; Admin Dose 0.5 MG; Start 07/22/18 at 17:00 Lansoprazole (Prevacid) 30 mg DAILY@06 GTB Last administered on 08/02/18 06:19; Admin Dose 30 MG; Start 07/25/18 at 06:00 Acetaminophen (Tylenol Tab) 650 mg Q6H PRN GTB .PAIN 1-3 OR TEMP Last administered on 08/01/18 09:06; Admin Dose 650 MG; Start 07/27/18 at 09:00 Acetaminophen (Tylenol Tab) 650 mg Q6H PRN GTB MILD TO MODERATE PAIN; Start 07/27/18 at 09:00 Ascorbic Acid (Vitamin C) 500 mg DAILY GTB Last administered on 08/02/18 08:39; Admin Dose 500 MG; Start 07/27/18 at 09:00 Atorvastatin Calcium (Lipitor) 20 mg QHS GTB Last administered on 08/01/18 21:30; Admin Dose 20 MG; Start 07/27/18 at 21:00 Duloxetine HCl (Cymbalta) 30 mg DAILY GTB Last administered on 08/02/18 08:39; Admin Dose 30 MG; Start 07/27/18 at 09:00 Gabapentin (Neurontin) 400 mg Q8 GTB Last administered on 08/02/18 13:33; Admin Dose 400 MG; Start 07/27/18 at 14:00 Hydralazine HCl (Apresoline) 50 mg Q8 GTB Last administered on 08/02/18 13:34; Admin Dose 50 MG; Start 07/27/18 at 14:00 Isosorbide Dinitrate (Isordil) 10 mg TID GTB Last administered on 08/02/18 13:34; Admin Dose 10 MG; Start 07/27/18 at 09:00 Metoprolol Tartrate (Lopressor) 50 mg Q8 GTB Last administered on 08/02/18at 13:34; Admin Dose 50 MG; Start 07/27/18 at 14:00 Multivitamins (Multivitamin) 30 ml DAILY GTB Last administered on 08/02/18 08:39; Admin Dose 30 ML; Start 07/27/18 at 09:00 Ondansetron HCl (Zofran Tab) 4 mg Q4H PRN GTB NAUSEA AND/OR VOMITING; Start 07/27/18 at 09:00 Senna (Senokot) 1 tab BID GTB Last administered on 08/02/18 08:39; Admin Dose 1 TAB; Start 07/27/18 at 09:00 Tramadol HCl (Ultram) 50 mg Q6H PRN GTB PAIN LEVEL 4-7; Start 07/27/18 at 09:00 Miscellaneous Information 1 ea NOTE XX ; Start 07/27/18 at 09:00 Glucose (Glutose) 15 gm Q15M PRN PO DECREASED GLUCOSE; Start 07/27/18 at 09:00 Glucose (Glutose) 22.5 gm Q15M PRN PO DECREASED GLUCOSE; Start 07/27/18 at 09:00 Dextrose (D50w Syringe) 25 ml Q15M PRN IV DECREASED GLUCOSE; Start 07/27/18 at 09:00 Dextrose (D50w Syringe) 50 ml Q15M PRN IV DECREASED GLUCOSE; Start 07/27/18 at 09:00 Glucagon (Glucagen) 1 mg Q15M PRN IM DECREASED GLUCOSE; Start 07/27/18 at 09:00 Glucose (Glutose) 15 gm Q15M PRN BUCCAL DECREASED GLUCOSE; Start 07/27/18 at 09:00 Insulin Aspart (Novolog Insulin Pen) NOVOLOG *MODERATE* ALGORI... Q6 SC Last administered on 08/02/18at 12:10; Admin Dose 2 UNIT; Start 07/31/18 at 18:00 Prednisone (Prednisone) 10 mg DAILY GTB Last administered on 08/02/18 08:39; Admin Dose 10 MG; Start 08/01/18 at 09:00 Insulin Glargine (Lantus) 18 units BID SC Last administered on 08/02/18 08:48; Admin Dose 18 UNITS; Start 08/02/18 at 09:00 Insulin Human NPH (Humulin N) 20 unit DAILY@0900 SC Last administered on 08/02/18at 08:43; Admin Dose 20 UNIT; Start 08/02/18 at 09:00 LES TRENT August 02, 2018 15:16
--- NOTE | 2018-08-02 17:33 | CONS ---
Consult Date/Type/Reason Admit Date/Time Jul 19, 2018 at 18:40 Initial Consult Date 07/24/18 Type of Consultation: Pulm Requesting Provider: LES TRENT Date/Time of Note DATE: 08/02/18 TIME: 17:32 Subjective No overnight events. Objective Vitals Vital Signs Date Temp Pulse Resp B/P (MAP) Pulse Ox O2 O2 Flow FiO2 Time Delivery Rate 08/02/18 62 16:01 08/02/18 20 100 35 15:10 08/02/18 98.3 136/6 (49) 11:36 08/01/18 Mechanical 15:28 Ventilator Intake and Output 08/01/18 08/01/18 08/02/18 1515:00 23:00 07:00 IntakeIntake Total 1230 ml OutputOutput Total 950 ml BalanceBalance 280 ml Exam NECK: Supple. Trach site is clean and intact. CARDIAC: S1, S2. No added sounds or murmurs. CHEST: Diminished air entry bilaterally. ABDOMEN: Soft, nontender. No guarding or rebound. EXTREMITIES: No cyanosis, clubbing or edema. NEUROLOGIC: Generalized weakness. Results/Medications Result Diagram: 08/02/18 0528 08/02/18 0528 Results 24 hrs Laboratory Tests Test 08/01/18 17:36 08/01/18 21:33 08/02/18 00:23 08/02/18 05:28 Bedside Glucose 181 224 H 236 H White Blood Count 5.7 Red Blood Count 2.99 L Hemoglobin 8.1 L Hematocrit 26.1 L Mean Corpuscular Volume 87.3 Mean Corpuscular 27.1 L Hemoglobin Mean Corpuscular 31.0 L Hemoglobin Concent Red Cell Distribution 18.3 H Width Platelet Count 31 L Mean Platelet Volume 13.0 H Immature Granulocytes % 1.100 H Neutrophils % 80.5 H Lymphocytes % 10.7 L Monocytes % 7.0 Eosinophils % 0.5 Basophils % 0.2 Nucleated Red Blood 0.5 H Cells % Immature Granulocytes # 0.060 H Neutrophils # 4.6 Lymphocytes # 0.6 L Monocytes # 0.4 Eosinophils # 0.0 Basophils # 0.0 Nucleated Red Blood 0.0 Cells # Sodium Level 136 Potassium Level 3.9 Chloride Level 93 L Carbon Dioxide Level 37 H Anion Gap 6 Blood Urea Nitrogen 62 H Creatinine 0.80 Est Glomerular Filtrat > 60 Rate mL/min Glucose Level 183 Calcium Level 8.3 L Test 08/02/18 06:26 08/02/18 07:58 08/02/18 12:07 08/02/18 17:17 Bedside Glucose 189 192 175 143 Home Meds Reported Medications Tramadol HCl (Tramadol HCl) 50 Mg Tablet, 50 MG PO Q6H PRN for PAIN LEVEL 7-10, #120 TAB 06/23/18 Hydralazine Hcl* (Hydralazine Hcl*) 50 Mg Tab, 50 MG PO Q8 for hypertension, #90 TAB 06/23/18 Gabapentin* (Neurontin*) 400 Mg Capsule, 400 MG PO Q8, #90 CAP 06/23/18 Insulin Isophan/Regular (Humulin 70/30) 100 Units/Ml Susp, 18 UNIT SC Q8, EA 06/23/18 Omeprazole* (Omeprazole*) 40 Mg Capsule.dr, 40 MG PO DAILY, #30 CAP 06/23/18 Metoprolol Tartrate* (Lopressor*) 50 Mg Tab, 50 MG PO Q8, #60 TAB 06/23/18 Atorvastatin Calcium* (Atorvastatin Calcium*) 20 Mg Tablet, 20 MG PO QHS, #30 TAB 06/23/18 Ondansetron Hcl* (Ondansetron Hcl*) 4 Mg Tablet, 4 MG PO Q4H PRN for NAUSEA AND OR VOMITING, TAB 11/11/17 Budesonide-Formoterol Fumarate* (Symbicort*) 160-4.5 Hfa.aer.ad, 1 PUFF INHALATION BID, #1 EACH 11/11/17 Sennosides* (Senna Lax*) 8.6 Mg Tablet, 1 TAB PO BID, TAB 11/11/17 Multivitamins* (Theragran*) 1 Tab Tab, 1 TAB PO DAILY, TAB 11/11/17 Isosorbide Dinitrate* (Isosorbide Dinitrate*) 10 Mg Tablet, 10 MG PO TID, TAB 11/11/17 Ascorbic Acid* (Vitamin C*) 500 Mg Capsule.sa, 500 MG PO DAILY, CAP 11/11/17 Pantoprazole* (Protonix*) 40 Mg Tablet.dr, 40 MG PO AC BREAKFAST, TAB 08/07/17 Apixaban* (Eliquis*) 5 Mg Tablet, 5 MG PO BID, TAB 08/07/17 Nitroglycerin* (Nitrostat*) 0.4 Mg Tab.subl, 0.4 MG SL Q5MIN PRN for CHEST PAIN, BOTTLE 05/19/17 Duloxetine Hcl* (Cymbalta*) 30 Mg Capsule.dr, 30 MG PO DAILY, CAP 05/19/17 Acetaminophen* (Acetaminophen*) 650 Mg Tablet, 650 MG PO Q6H PRN for MILD TO MODERATE PAIN, #30 TAB 03/18/17 Alprazolam* (Alprazolam*) 0.25 Mg Tablet, 0.25 MG PO TID PRN for ANXIETY, TAB 03/18/17 Ferrous Sulfate* (Ferrous Sulfate*) 325 Mg Tabec, 325 MG PO DAILY, TAB 03/18/17 Medications Current Medications IV Flush (NS 3 ml) 3 ml PER PROTOCOL IV ; Start 07/19/18 at 19:30 Ondansetron HCl (Zofran Inj) 4 mg Q6H PRN IV NAUSEA/VOMITING; Start 07/19/18 at 19:30 Morphine Sulfate (morphine) 2 mg Q4H PRN IV .PAIN 8-10 Last administered on 07/30/18at 21:19; Admin Dose 2 MG; Start 07/19/18 at 19:30 Ferrous Sulfate (Ferrous Sulfate (Ec)) 325 mg DAILY PO Last administered on 08/02/18at 08:39; Admin Dose 325 MG; Start 07/20/18 at 09:00; Stop 08/19/18 at 08:59 Nitroglycerin (Nitroglycerin (Sl Tab) 0.4 Mg) 1 tab [id number] PRN SL CHEST PAIN; Start 07/19/18 at 19:30 Miscellaneous Information (Pending [facility] Order For Wound Care) This patient pedro... PRN PRN XX WOUND CARE; Start 07/20/18 at 01:30 Lorazepam (Ativan) 0.5 mg Q6 PRN IV AGITATION/ANXIETY Last administered on 07/30/18at 05:31; Admin Dose 0.5 MG; Start 07/22/18 at 17:00 Lansoprazole (Prevacid) 30 mg DAILY@06 GTB Last administered on 08/02/18at 06:19; Admin Dose 30 MG; Start 07/25/18 at 06:00 Acetaminophen (Tylenol Tab) 650 mg Q6H PRN GTB .PAIN 1-3 OR TEMP Last administered on 08/01/18 09:06; Admin Dose 650 MG; Start 07/27/18 at 09:00 Acetaminophen (Tylenol Tab) 650 mg Q6H PRN GTB MILD TO MODERATE PAIN; Start 07/27/18 at 09:00 Ascorbic Acid (Vitamin C) 500 mg DAILY GTB Last administered on 08/02/18 08:39; Admin Dose 500 MG; Start 07/27/18 at 09:00 Atorvastatin Calcium (Lipitor) 20 mg QHS GTB Last administered on 08/01/18 21:30; Admin Dose 20 MG; Start 07/27/18 at 21:00 Duloxetine HCl (Cymbalta) 30 mg DAILY GTB Last administered on 08/02/18 08:39; Admin Dose 30 MG; Start 07/27/18 at 09:00 Gabapentin (Neurontin) 400 mg Q8 GTB Last administered on 08/02/18 13:33; Admin Dose 400 MG; Start 07/27/18 at 14:00 Hydralazine HCl (Apresoline) 50 mg Q8 GTB Last administered on 08/02/18 13:34; Admin Dose 50 MG; Start 07/27/18 at 14:00 Isosorbide Dinitrate (Isordil) 10 mg TID GTB Last administered on 08/02/18 13 :34; Admin Dose 10 MG; Start 07/27/18 at 09:00 Metoprolol Tartrate (Lopressor) 50 mg Q8 GTB Last administered on 08/02/18 13:34; Admin Dose 50 MG; Start 07/27/18 at 14:00 Multivitamins (Multivitamin) 30 ml DAILY GTB Last administered on 08/02/18 08:39; Admin Dose 30 ML; Start 07/27/18 at 09:00 Ondansetron HCl (Zofran Tab) 4 mg Q4H PRN GTB NAUSEA AND/OR VOMITING; Start 07/27/18 at 09:00 Senna (Senokot) 1 tab BID GTB Last administered on 08/02/18 08:39; Admin Dose 1 TAB; Start 07/27/18 at 09:00 Tramadol HCl (Ultram) 50 mg Q6H PRN GTB PAIN LEVEL 4-7; Start 07/27/18 at 09:00 Miscellaneous Information 1 ea NOTE XX ; Start 07/27/18 at 09:00 Glucose (Glutose) 15 gm Q15M PRN PO DECREASED GLUCOSE; Start 07/27/18 at 09:00 Glucose (Glutose) 22.5 gm Q15M PRN PO DECREASED GLUCOSE; Start 07/27/18 at 09:00 Dextrose (D50w Syringe) 25 ml Q15M PRN IV DECREASED GLUCOSE; Start 07/27/18 at 09:00 Dextrose (D50w Syringe) 50 ml Q15M PRN IV DECREASED GLUCOSE; Start 07/27/18 at 09:00 Glucagon (Glucagen) 1 mg Q15M PRN IM DECREASED GLUCOSE; Start 07/27/18 at 09:00 Glucose (Glutose) 15 gm Q15M PRN BUCCAL DECREASED GLUCOSE; Start 07/27/18 at 09:00 Insulin Aspart (Novolog Insulin Pen) NOVOLOG *MODERATE* ALGORI... Q6 SC Last administered on 08/02/18 17:23; Admin Dose 2 UNIT; Start 07/31/18 at 18:00 Prednisone (Prednisone) 10 mg DAILY GTB Last administered on 08/02/18 08:39; Admin Dose 10 MG; Start 08/01/18 at 09:00 Insulin Glargine (Lantus) 18 units BID SC Last administered on 08/02/18 08:48; Admin Dose 18 UNITS; Start 08/02/18 at 09:00 Insulin Human NPH (Humulin N) 20 unit DAILY@0900 SC Last administered on 08/02/18at 08:43; Admin Dose 20 UNIT; Start 08/02/18 at 09:00 Assessment/Plan Assessment/Plan (Daily) IMP: 1. Ventilator-dependent respiratory failure. 2. 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 3. Dysphagia with G-tube. 4. Anemia 5. s/p pacer RECS: 1. Vent support 2. BDs/CPT 3. TF/Free H20 UTE GOODE MD August 02, 2018 17:33
[2018-08-02] MEDS: ATORVASTATIN 20 MG TAB GTB SCH (22:23)
[2018-08-02] MEDS: morphine 2 MG INJ IV PRN (23:49)
[2018-08-03] VITALS (22 sets, daily range): BP systolic 95–149; BP diastolic 48–68; PULSE 56–92; RESP 14–20
[2018-08-03] MEDS: INSULIN ASPART [NOVOLOG] 3 ML PEN SC SCH ×5 (00:12→23:52)
[2018-08-03] MEDS: GABAPENTIN 400 MG CAP GTB SCH ×3 (05:43→21:42)
[2018-08-03] MEDS: LANSOPRAZOLE 30 MG CAP GTB SCH (05:43)
[2018-08-03] MEDS: METOPROLOL 50 MG TAB GTB SCH ×2 (05:44→13:48)
[2018-08-03] MEDS ORDERED: ALTEPLASE (CATHFLO) 2 MG INJ CATHETER PRN (06:30)
--- NOTE | 2018-08-03 06:48 | CONS ---
Assessment/Plan Assessment/Plan Problems: (1) Diabetes mellitus, type 2 Status: Chronic Comment: Improved glycemic control w/ new insulin doses. Will cont. D/c NPH when prednisone d/c'ed. Consultation Date/Type/Reason Admit Date/Time Jul 19, 2018 at 18:40 Initial Consult Date 07/24/18 Type of Consult Endocrinology Reason for Consultation T2DM management Requesting Provider: LES TRENT Date/Time of Note DATE: 08/03/18 TIME: 06:46 24 HR Interval Summary Subjective hx not possible: pt non-verbal Exam/Review of Systems Exam Vitals VS - Last 72 Hours, by Label Date Temp Pulse Resp B/P (MAP) Pulse Ox O2 O2 Flow FiO2 Time Delivery Rate 08/03/18 67 16 93 30 05:05 08/03/18 71 04:00 08/03/18 98.4 66 14 110/53 97 04:00 (72) 08/03/18 69 14 94 30 03:10 08/03/18 77 14 96 30 01:30 08/03/18 98.9 60 16 149/68 96 00:00 (95) 08/03/18 69 00:00 08/02/18 71 18 100 30 23:10 08/02/18 64 14 98 30 21:00 08/02/18 99.2 62 14 113/58 98 20:00 (76) 08/02/18 60 20:00 08/02/18 30 19:45 08/02/18 70 17 100 35 19:25 08/02/18 65 22 98 35 17:15 08/02/18 62 16:01 08/02/18 63 20 100 35 15:10 08/02/18 67 15 100 35 13:20 08/02/18 72 12:01 08/02/18 98.3 72 14 136/6 (49) 100 11:36 08/02/18 73 22 100 35 11:05 08/02/18 62 16 98 35 09:20 08/02/18 65 08:01 08/02/18 99.1 65 20 124/61 99 07:58 (82) 08/02/18 65 14 100 35 07:10 08/02/18 65 14 100 35 07:10 08/02/18 67 15 100 35 04:55 08/02/18 99.1 69 18 129/64 97 04:00 (85) 08/02/18 67 04:00 08/02/18 65 14 97 35 03:07 08/02/18 65 16 100 35 01:02 08/02/18 62 00:00 08/01/18 98.7 65 18 105/55 98 23:55 (72) 08/01/18 64 15 100 35 23:03 08/01/18 30 21:40 08/01/18 67 15 99 35 20:48 08/01/18 68 20:00 08/01/18 98.9 68 18 106/55 99 19:50 (72) 08/01/18 62 14 98 35 19:02 08/01/18 67 16 100 35 16:55 08/01/18 60 16:00 08/01/18 98.5 59 18 107/59 97 [employer] 15:28 (75) l Ventilato r 08/01/18 66 18 100 35 15:22 08/01/18 60 14 100 35 13:20 08/01/18 60 12:00 08/01/18 98.9 66 18 125/62 98 [employer] 11:33 (83) l Ventilato r 08/01/18 98 19 100 35 11:30 08/01/18 99.8 10:29 08/01/18 69 19 100 35 09:47 08/01/18 30 09:15 08/01/18 100.1 09:06 08/01/18 63 18 100 35 08:30 08/01/18 62 08:00 08/01/18 100.5 67 18 111/56 97 [employer] 07:08 (74) l Ventilato r 08/01/18 78 14 100 35 05:38 08/01/18 98.4 63 18 107/54 98 04:16 (71) 08/01/18 66 04:00 08/01/18 75 14 100 35 03:47 08/01/18 69 14 100 35 01:35 08/01/18 98.5 61 18 114/53 99 00:23 (73) 08/01/18 60 00:00 07/31/18 75 14 100 35 23:49 07/31/18 30 21:50 07/31/18 72 14 100 35 21:47 07/31/18 70 20:00 07/31/18 98.0 68 18 134/53 99 19:48 (80) 07/31/18 76 14 100 35 19:45 07/31/18 65 14 98 35 17:43 07/31/18 66 17:02 07/31/18 66 14 100 35 15:55 07/31/18 98.3 75 18 112/61 98 [employer] 15:19 (78) l Ventilato r 07/31/18 71 14:28 07/31/18 76 14 100 35 13:25 07/31/18 73 25 100 35 11:36 07/31/18 98.1 62 16 125/65 99 [employer] 11:05 (85) l Ventilato r 07/31/18 76 15 100 35 09:44 07/31/18 60 08:30 07/31/18 98.0 68 18 134/53 99 07:45 (80) 07/31/18 66 20 100 35 07:45 07/31/18 98.5 60 18 118/57 97 [employer] 07:09 (77) l Ventilato r Vital Signs Date Temp Pulse Resp B/P (MAP) Pulse Ox O2 O2 Flow FiO2 Time Delivery Rate 08/03/18 67 16 93 30 05:05 08/03/18 98.4 110/53 04:00 (72) 08/01/18 Mechanical 15:28 Ventilator Intake and Output 08/02/18 08/02/18 08/03/18 1515:00 23:00 07:00 IntakeIntake Total 1230 ml OutputOutput Total 750 ml BalanceBalance 480 ml Constitutional: non-verbal, frail, obese; No alert Respiratory: clear to auscultation, normal air movement Cardiovascular: regular rate and rhythm; No edema, No murmurs/extra sounds, No rub Gastrointestinal: soft, nl liver, spleen, non-tender, bowel sounds; No mass, No rebound or guarding Musculoskeletal: 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) Extremities: No cyanosis, No clubbing, No edema Neurological: unresponsive Additional Comments Bedside Glucose - 72 Hours Test 07/31/18 08:06 07/31/18 17:30 07/31/18 21:48 08/01/18 00:43 Bedside 194 311 249 249 Glucose mg/dL (70-220) mg/dL (70-220) mg/dL (70-220) mg/dL (70-220) H H H Test 08/01/18 06:42 08/01/18 08:57 08/01/18 12:01 08/01/18 17:36 Bedside 166 152 151 181 Glucose mg/dL (70-220) mg/dL (70-220) mg/dL (70-220) mg/dL (70-220) Test 08/01/18 21:33 08/02/18 00:23 08/02/18 06:26 08/02/18 07:58 Bedside 224 236 189 192 Glucose mg/dL (70-220) mg/dL (70-220) mg/dL (70-220) mg/dL (70-220) H H Test 08/02/18 12:07 08/02/18 17:17 08/02/18 22:27 08/03/18 05:54 Bedside 175 143 135 146 Glucose mg/dL (70-220) mg/dL (70-220) mg/dL (70-220) mg/dL (70-220) Results Result Diagram: 08/02/18 0528 08/02/18 0528 Results 24hrs Laboratory Tests Test 08/02/18 07:58 08/02/18 12:07 08/02/18 17:17 08/02/18 22:27 Bedside Glucose 192 175 143 135 Test 08/03/18 05:54 Bedside Glucose 146 Medications Medication Current Medications IV Flush (NS 3 ml) 3 ml PER PROTOCOL IV ; Start 07/19/18 at 19:30 Ondansetron HCl (Zofran Inj) 4 mg Q6H PRN IV NAUSEA/VOMITING; Start 07/19/18 at 19:30 Morphine Sulfate (morphine) 2 mg Q4H PRN IV .PAIN 8-10 Last administered on 08/02/18at 23:49; Admin Dose 2 MG; Start 07/19/18 at 19:30 Ferrous Sulfate (Ferrous Sulfate (Ec)) 325 mg DAILY PO Last administered on 08/02/18at 08:39; Admin Dose 325 MG; Start 07/20/18 at 09:00; Stop 08/19/18 at 08:59 Nitroglycerin (Nitroglycerin (Sl Tab) 0.4 Mg) 1 tab [id number] PRN SL CHEST PAIN; Start 07/19/18 at 19:30 Miscellaneous Information (Pending [facility] Order For Wound Care) This patient pedro... PRN PRN XX WOUND CARE; Start 07/20/18 at 01:30 Lorazepam (Ativan) 0.5 mg Q6 PRN IV AGITATION/ANXIETY Last administered on 07/30/18 05:31; Admin Dose 0.5 MG; Start 07/22/18 at 17:00 Lansoprazole (Prevacid) 30 mg DAILY@06 GTB Last administered on 08/03/18 05:43; Admin Dose 30 MG; Start 07/25/18 at 06:00 Acetaminophen (Tylenol Tab) 650 mg Q6H PRN GTB .PAIN 1-3 OR TEMP Last administered on 08/01/18 09:06; Admin Dose 650 MG; Start 07/27/18 at 09:00 Acetaminophen (Tylenol Tab) 650 mg Q6H PRN GTB MILD TO MODERATE PAIN; Start 07/27/18 at 09:00 Ascorbic Acid (Vitamin C) 500 mg DAILY GTB Last administered on 08/02/18 08:39; Admin Dose 500 MG; Start 07/27/18 at 09:00 Atorvastatin Calcium (Lipitor) 20 mg QHS GTB Last administered on 08/02/18 22:23; Admin Dose 20 MG; Start 07/27/18 at 21:00 Duloxetine HCl (Cymbalta) 30 mg DAILY GTB Last administered on 08/02/18 08:39; Admin Dose 30 MG; Start 07/27/18 at 09:00 Gabapentin (Neurontin) 400 mg Q8 GTB Last administered on 08/03/18 05:43; Admin Dose 400 MG; Start 07/27/18 at 14:00 Hydralazine HCl (Apresoline) 50 mg Q8 GTB Last administered on 08/03/18 05:43; Admin Dose 50 MG; Start 07/27/18 at 14:00 Isosorbide Dinitrate (Isordil) 10 mg TID GTB Last administered on 08/02/18 22:23; Admin Dose 10 MG; Start 07/27/18 at 09:00 Metoprolol Tartrate (Lopressor) 50 mg Q8 GTB Last administered on 08/03/18 05:44; Admin Dose 50 MG; Start 07/27/18 at 14:00 Multivitamins (Multivitamin) 30 ml DAILY GTB Last administered on 08/02/18 08:39; Admin Dose 30 ML; Start 07/27/18 at 09:00 Ondansetron HCl (Zofran Tab) 4 mg Q4H PRN GTB NAUSEA AND/OR VOMITING; Start 07/27/18 at 09:00 Senna (Senokot) 1 tab BID GTB Last administered on 08/02/18 22:23; Admin Dose 1 TAB; Start 07/27/18 at 09:00 Tramadol HCl (Ultram) 50 mg Q6H PRN GTB PAIN LEVEL 4-7; Start 07/27/18 at 09:00 Miscellaneous Information 1 ea NOTE XX ; Start 07/27/18 at 09:00 Glucose (Glutose) 15 gm Q15M PRN PO DECREASED GLUCOSE; Start 07/27/18 at 09:00 Glucose (Glutose) 22.5 gm Q15M PRN PO DECREASED GLUCOSE; Start 07/27/18 at 09:00 Dextrose (D50w Syringe) 25 ml Q15M PRN IV DECREASED GLUCOSE; Start 07/27/18 at 09:00 Dextrose (D50w Syringe) 50 ml Q15M PRN IV DECREASED GLUCOSE; Start 07/27/18 at 09:00 Glucagon (Glucagen) 1 mg Q15M PRN IM DECREASED GLUCOSE; Start 07/27/18 at 09:00 Glucose (Glutose) 15 gm Q15M PRN BUCCAL DECREASED GLUCOSE; Start 07/27/18 at 09:00 Insulin Aspart (Novolog Insulin Pen) NOVOLOG *MODERATE* ALGORI... Q6 SC Last administered on 08/03/18 05:55; Admin Dose 2 UNIT; Start 07/31/18 at 18:00 Prednisone (Prednisone) 10 mg DAILY GTB Last administered on 08/02/18 08:39; Admin Dose 10 MG; Start 08/01/18 at 09:00 Insulin Glargine (Lantus) 18 units BID SC Last administered on 08/02/18 22:37; Admin Dose 18 UNITS; Start 08/02/18 at 09:00 Insulin Human NPH (Humulin N) 20 unit DAILY@0900 SC Last administered on 08/02/18 08:43; Admin Dose 20 UNIT; Start 08/02/18 at 09:00 Alteplase, Recombinant (Cathflo (Activase)) 2 mg MAY REPEAT X1 PRN CATHETER IF CATHETER REMAINS OCCULUDED; Start 08/03/18 at 06:30 MILKA ROTH MD August 03, 2018 06:48
[2018-08-03] MEDS: DULOXETINE 30 MG CAP DR GTB SCH (08:33)
[2018-08-03] MEDS: predniSONE 10 MG TAB GTB SCH (08:33)
[2018-08-03] MEDS: MULTIVITAMINS 30 ML CUP GTB SCH (08:33)
[2018-08-03] MEDS: ASCORBIC ACID 500 MG TAB GTB SCH (08:33)
[2018-08-03] MEDS: FERROUS SULFATE (EC) 325 MG TAB PO SCH (08:34)
[2018-08-03] MEDS: ISOSORBIDE DINITRATE 10 MG TAB GTB SCH ×3 (08:34→21:00)
[2018-08-03] MEDS: SENNA TAB GTB SCH ×2 (08:34→21:41)
[2018-08-03] MEDS: INSULIN GLARGINE [LANTus] (100 UNITS/ML) SYG SC SCH ×2 (08:40→22:00)
[2018-08-03] MEDS: NPH, HUMAN INSULIN ISOPHANE 3ML VIAL SC SCH (08:41)
--- NOTE | 2018-08-03 11:23 | CONS ---
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 plt count at 37K, prednisone 80 mg daily (started on Saturday), will taper slowly as plt count allows, decrease to 70 mg -has been given IVIG 40 grams x 2 days -plt count is stable but he is on high doses of steroids, will likely give promacta if plt count doesnt improve. - 04/2018, platelets >200, since dx of ITP has been highest bout 60K, still low but in a safe range -will most likely consider Promacta as it is the easiest to administer and he has had so many complications, he would likely do better at a more stable plt count Patient is seen in collaboration with Dr Martinez Dw Staff. Consultation Date/Type/Reason Admit Date/Time Jul 19, 2018 at 18:40 Initial Consult Date 07/24/18 Type of Consult ONCOLOGY Reason for Consultation THROBOCYTOPENIA Requesting Provider: LES TRENT Date/Time of Note DATE: 08/03/18 TIME: 11:17 24 HR Interval Summary Free Text/Dictation NAD afebrile no bleeding reported from any body orifices no new events reported last night per staff Subjective hx not possible: pt non-verbal Constitutional: requiring O2 Exam/Review of Systems Exam Vitals Vital Signs Date Temp Pulse Resp B/P (MAP) Pulse Ox O2 O2 Flow FiO2 Time Delivery Rate 08/03/18 66 14 98 30 09:18 08/03/18 99.0 121/52 07:57 (75) 08/01/18 Mechanical 15:28 Ventilator Intake and Output 08/02/18 08/02/18 08/03/18 1515:00 23:00 07:00 IntakeIntake Total 1230 ml 1000 ml OutputOutput Total 750 ml 600 ml BalanceBalance 480 ml 400 ml Constitutional: non-verbal, frail Psych: nl mood/affect Neck: other (trach intact) Respiratory: clear to auscultation, other Cardiovascular: nl pulses, other (s1s2) Gastrointestinal: soft, ascites, other (GT intact) Musculoskeletal: muscle weakness, other (George BKA) Extremities: normal pulses Neurological: confused Skin: other (decubs) Results Result Diagram: 08/02/1852708/02/18527 Results 24hrs Laboratory Tests Test 08/02/18 12:07 08/02/18 17:17 08/02/18 22:27 08/03/18 05:54 Bedside Glucose 175 143 135 146 Test 08/03/18 08:30 Bedside Glucose 131 Medications Medication Current Medications IV Flush (NS 3 ml) 3 ml PER PROTOCOL IV ; Start 07/19/18 at 19:30 Ondansetron HCl (Zofran Inj) 4 mg Q6H PRN IV NAUSEA/VOMITING; Start 07/19/18 at 19:30 Morphine Sulfate (morphine) 2 mg Q4H PRN IV .PAIN 8-10 Last administered on 08/02/18 23:49; Admin Dose 2 MG; Start 07/19/18 at 19:30 Ferrous Sulfate (Ferrous Sulfate (Ec)) 325 mg DAILY PO Last administered on 08/03/18 08:34; Admin Dose 325 MG; Start 07/20/18 at 09:00; Stop 08/19/18 at 08:59 Nitroglycerin (Nitroglycerin (Sl Tab) 0.4 Mg) 1 tab [id number] PRN SL CHEST PAIN; Start 07/19/18 at 19:30 [facility] This patient pedro... PRN PRN XX WOUND CARE; Start 07/20/18 at 01:30 Lorazepam (Ativan) 0.5 mg Q6 PRN IV AGITATION/ANXIETY Last administered on 07/30/18 05:31; Admin Dose 0.5 MG; Start 07/22/18 at 17:00 Lansoprazole (Prevacid) 30 mg DAILY@06 GTB Last administered on 08/03/18 05:43; Admin Dose 30 MG; Start 07/25/18 at 06:00 Acetaminophen (Tylenol Tab) 650 mg Q6H PRN GTB .PAIN 1-3 OR TEMP Last administered on 08/01/18 09:06; Admin Dose 650 MG; Start 07/27/18 at 09:00 Acetaminophen (Tylenol Tab) 650 mg Q6H PRN GTB MILD TO MODERATE PAIN; Start 07/27/18 at 09:00 Ascorbic Acid (Vitamin C) 500 mg DAILY GTB Last administered on 08/03/18 08:33; Admin Dose 500 MG; Start 07/27/18 at 09:00 Atorvastatin Calcium (Lipitor) 20 mg QHS GTB Last administered on 08/02/18 22:23; Admin Dose 20 MG; Start 07/27/18 at 21:00 Duloxetine HCl (Cymbalta) 30 mg DAILY GTB Last administered on 08/03/18 08:33; Admin Dose 30 MG; Start 07/27/18 at 09:00 Gabapentin (Neurontin) 400 mg Q8 GTB Last administered on 08/03/18 05:43; Admin Dose 400 MG; Start 07/27/18 at 14:00 Hydralazine HCl (Apresoline) 50 mg Q8 GTB Last administered on 08/03/18 05:43; Admin Dose 50 MG; Start 07/27/18 at 14:00 Isosorbide Dinitrate (Isordil) 10 mg TID GTB Last administered on 08/03/18 08:34; Admin Dose 10 MG; Start 07/27/18 at 09:00 Metoprolol Tartrate (Lopressor) 50 mg Q8 GTB Last administered on 08/03/18 05:44; Admin Dose 50 MG; Start 07/27/18 at 14:00 Multivitamins (Multivitamin) 30 ml DAILY GTB Last administered on 08/03/18 08:33; Admin Dose 30 ML; Start 07/27/18 at 09:00 Ondansetron HCl (Zofran Tab) 4 mg Q4H PRN GTB NAUSEA AND/OR VOMITING; Start at 09:00 Senna (Senokot) 1 tab BID GTB Last administered on 08/03/18 08:34; Admin Dose 1 TAB; Start 07/27/18 at 09:00 Tramadol HCl (Ultram) 50 mg Q6H PRN GTB PAIN LEVEL 4-7; Start 07/27/18 at 09:00 Miscellaneous Information 1 ea NOTE XX ; Start 07/27/18 at 09:00 Glucose (Glutose) 15 gm Q15M PRN PO DECREASED GLUCOSE; Start 07/27/18 at 09:00 Glucose (Glutose) 22.5 gm Q15M PRN PO DECREASED GLUCOSE; Start 07/27/18 at 09:00 Dextrose (D50w Syringe) 25 ml Q15M PRN IV DECREASED GLUCOSE; Start 07/27/18 at 09:00 Dextrose (D50w Syringe) 50 ml Q15M PRN IV DECREASED GLUCOSE; Start 07/27/18 at 09:00 Glucagon (Glucagen) 1 mg Q15M PRN IM DECREASED GLUCOSE; Start 07/27/18 at 09:00 Glucose (Glutose) 15 gm Q15M PRN BUCCAL DECREASED GLUCOSE; Start 07/27/18 at 09:00 Insulin Aspart (Novolog Insulin Pen) NOVOLOG *MODERATE* ALGORI... Q6 SC Last administered on 08/03/18at 05:55; Admin Dose 2 UNIT; Start 07/31/18 at 18:00 Prednisone (Prednisone) 10 mg DAILY GTB Last administered on 08/03/18at 08:33; Admin Dose 10 MG; Start 08/01/18 at 09:00 Insulin Glargine (Lantus) 18 units BID SC Last administered on 08/03/18at 08:40; Admin Dose 18 UNITS; Start 08/02/18 at 09:00 Insulin Human NPH (Humulin N) 20 unit DAILY@0900 SC Last administered on 08/03/18at 08:41; Admin Dose 20 UNIT; Start 08/02/18 at 09:00 Alteplase, Recombinant (Cathflo (Activase)) 2 mg MAY REPEAT X1 PRN CATHETER IF CATHETER REMAINS OCCULUDED; Start 08/03/18 at 06:30 LES TRENT August 03, 2018 11:23
--- NOTE | 2018-08-03 12:36 | PN ---
Date/Time of Note Date/Time of Note DATE: 08/03/18 TIME: 12:35 Assessment/Plan VTE Prophylaxis Risk score (from Ns)>0 risk: 2 SCD applied (from Ns): No SCD contraindicated: other Pharmacological prophylaxis: LMWH Lines/Catheters IV Catheter Type (from Nrsg): Mid Line Urinary Cath still in place: No Assessment/Plan Hospital Course 1) thrombocytopenia - per Hem/Onc - 2) respiratory failure - continue ventilator 3) coronary artery disease - stable at this point 4- DM - Endocrinology follows Hyperglycemia 2/2 to above - Glycemic consult Result Diagram: 08/02/1852708/02/18527 Results 24hrs Laboratory Tests Test 08/02/18 17:17 08/02/18 22:27 08/03/18 05:54 08/03/18 08:30 Bedside Glucose 143 135 146 131 Subjective 24 Hr Interval Summary Free Text/Dictation Patient appears stable, continues to be on vent via trach Exam/Review of Systems Exam Vitals Vital Signs Date Temp Pulse Resp B/P (MAP) Pulse Ox O2 O2 Flow FiO2 Time Delivery Rate 08/03/18 74 12:01 08/03/18 14 98 30 11:21 08/03/18 99.0 121/52 07:57 (75) 08/01/18 Mechanical 15:28 Ventilator Intake and Output 08/02/18 08/02/18 08/03/18 1515:00 23:00 07:00 IntakeIntake Total 1230 ml 1000 ml OutputOutput Total 750 ml 600 ml BalanceBalance 480 ml 400 ml Constitutional: well developed Head: normocephalic, atraumatic Neck: supple Respiratory: diminished breath sounds Cardiovascular: regular rate and rhythm Gastrointestinal: soft, non-tender Extremities: normal pulses Results Results 24hrs Laboratory Tests Test 08/02/18 17:17 08/02/18 22:27 08/03/18 05:54 08/03/18 08:30 Bedside Glucose 143 135 146 131 Medications Medication Current Medications IV Flush (NS 3 ml) 3 ml PER PROTOCOL IV ; Start 07/19/18 at 19:30 Ondansetron HCl (Zofran Inj) 4 mg Q6H PRN IV NAUSEA/VOMITING; Start 07/19/18 at 19:30 Morphine Sulfate (morphine) 2 mg Q4H PRN IV .PAIN 8-10 Last administered on 08/02/18 23:49; Admin Dose 2 MG; Start 07/19/18 at 19:30 Ferrous Sulfate (Ferrous Sulfate (Ec)) 325 mg DAILY PO Last administered on 08/03/18 08:34; Admin Dose 325 MG; Start 07/20/18 at 09:00; Stop 08/19/18 at 08:59 Nitroglycerin (Nitroglycerin (Sl Tab) 0.4 Mg) 1 tab [id number] PRN SL CHEST PAIN; Start 07/19/18 at 19:30 Miscellaneous Information (Pending Santyl Order For Wound Care) This patient pedro... PRN PRN XX WOUND CARE; Start 07/20/18 at 01:30 Lorazepam (Ativan) 0.5 mg Q6 PRN IV AGITATION/ANXIETY Last administered on 07/30/18 05:31; Admin Dose 0.5 MG; Start 07/22/18 at 17:00 Lansoprazole (Prevacid) 30 mg DAILY@06 GTB Last administered on 08/03/18 05:43; Admin Dose 30 MG; Start 07/25/18 at 06:00 Acetaminophen (Tylenol Tab) 650 mg Q6H PRN GTB .PAIN 1-3 OR TEMP Last administered on 08/01/18 09:06; Admin Dose 650 MG; Start 07/27/18 at 09:00 Acetaminophen (Tylenol Tab) 650 mg Q6H PRN GTB MILD TO MODERATE PAIN; Start 07/27/18 at 09:00 Ascorbic Acid (Vitamin C) 500 mg DAILY GTB Last administered on 08/03/18 08:33; Admin Dose 500 MG; Start 07/27/18 at 09:00 Atorvastatin Calcium (Lipitor) 20 mg QHS GTB Last administered on 08/02/18 22:23; Admin Dose 20 MG; Start 07/27/18 at 21:00 Duloxetine HCl (Cymbalta) 30 mg DAILY GTB Last administered on 08/03/18 08:33; Admin Dose 30 MG; Start 07/27/18 at 09:00 Gabapentin (Neurontin) 400 mg Q8 GTB Last administered on 08/03/18 05:43; Admin Dose 400 MG; Start 07/27/18 at 14:00 Hydralazine HCl (Apresoline) 50 mg Q8 GTB Last administered on 08/03/18 05:43; Admin Dose 50 MG; Start 07/27/18 at 14:00 Isosorbide Dinitrate (Isordil) 10 mg TID GTB Last administered on 08/03/18 08:34; Admin Dose 10 MG; Start 07/27/18 at 09:00 Metoprolol Tartrate (Lopressor) 50 mg Q8 GTB Last administered on 08/03/18 05:44; Admin Dose 50 MG; Start 07/27/18 at 14:00 Multivitamins (Multivitamin) 30 ml DAILY GTB Last administered on 08/03/18 08:33; Admin Dose 30 ML; Start 07/27/18 at 09:00 Ondansetron HCl (Zofran Tab) 4 mg Q4H PRN GTB NAUSEA AND/OR VOMITING; Start 07/27/18 at 09:00 Senna (Senokot) 1 tab BID GTB Last administered on 08/03/18 08:34; Admin Dose 1 TAB; Start 07/27/18 at 09:00 Tramadol HCl (Ultram) 50 mg Q6H PRN GTB PAIN LEVEL 4-7; Start 07/27/18 at 09:00 Miscellaneous Information 1 ea NOTE XX ; Start 07/27/18 at 09:00 Glucose (Glutose) 15 gm Q15M PRN PO DECREASED GLUCOSE; Start 07/27/18 at 09:00 Glucose (Glutose) 22.5 gm Q15M PRN PO DECREASED GLUCOSE; Start 07/27/18 at 09:00 Dextrose (D50w Syringe) 25 ml Q15M PRN IV DECREASED GLUCOSE; Start 07/27/18 at 09:00 Dextrose (D50w Syringe) 50 ml Q15M PRN IV DECREASED GLUCOSE; Start 07/27/18 at 09:00 Glucagon (Glucagen) 1 mg Q15M PRN IM DECREASED GLUCOSE; Start 07/27/18 at 09:00 Glucose (Glutose) 15 gm Q15M PRN BUCCAL DECREASED GLUCOSE; Start 07/27/18 at 09:00 Insulin Aspart (Novolog Insulin Pen) NOVOLOG *MODERATE* ALGORI... Q6 SC Last administered on 08/03/18 05:55; Admin Dose 2 UNIT; Start 07/31/18 at 18:00 Prednisone (Prednisone) 10 mg DAILY GTB Last administered on 08/03/18 08:33; Admin Dose 10 MG; Start 08/01/18 at 09:00 Insulin Glargine (Lantus) 18 units BID SC Last administered on 08/03/18 08:40; Admin Dose 18 UNITS; Start 08/02/18 at 09:00 Insulin Human NPH (Humulin N) 20 unit DAILY@0900 SC Last administered on 08/03/18 08:41; Admin Dose 20 UNIT; Start 08/02/18 at 09:00 Alteplase, Recombinant (Cathflo (Activase)) 2 mg MAY REPEAT X1 PRN CATHETER IF CATHETER REMAINS OCCULUDED; Start 08/03/18 at 06:30 JACKIE SHAVER August 03, 2018 12:36
--- NOTE | 2018-08-03 13:13 | CONS ---
Consult Date/Type/Reason Admit Date/Time Jul 19, 2018 at 18:40 Initial Consult Date 07/24/18 Type of Consultation: Pulm Requesting Provider: LES TRENT Date/Time of Note DATE: 08/03/18 TIME: 13:12 Subjective No events overnight. Objective Vitals Vital Signs Date Temp Pulse Resp B/P (MAP) Pulse Ox O2 O2 Flow FiO2 Time Delivery Rate 08/03/18 74 12:01 08/03/18 14 98 30 11:21 08/03/18 99.0 121/52 07:57 (75) 08/01/18 Mechanical 15:28 Ventilator Intake and Output 08/02/18 08/02/18 08/03/18 1515:00 23:00 07:00 IntakeIntake Total 1230 ml 1000 ml OutputOutput Total 750 ml 600 ml BalanceBalance 480 ml 400 ml Exam NECK: Supple. Trach site is clean and intact. CARDIAC: S1, S2. No added sounds or murmurs. CHEST: Diminished air entry bilaterally. ABDOMEN: Soft, nontender. No guarding or rebound. EXTREMITIES: No cyanosis, clubbing or edema. NEUROLOGIC: Generalized weakness. Results/Medications Result Diagram: 08/02/18 0528 08/02/18 0528 Results 24 hrs Laboratory Tests Test 08/02/18 17:17 08/02/18 22:27 08/03/18 05:54 08/03/18 08:30 Bedside Glucose 143 135 146 131 Test 08/03/18 12:04 Bedside Glucose 98 Home Meds Reported Medications Tramadol HCl (Tramadol HCl) 50 Mg Tablet, 50 MG PO Q6H PRN for PAIN LEVEL 7-10, #120 TAB 06/23/18 Hydralazine Hcl* (Hydralazine Hcl*) 50 Mg Tab, 50 MG PO Q8 for hypertension, #90 TAB 06/23/18 Gabapentin* (Neurontin*) 400 Mg Capsule, 400 MG PO Q8, #90 CAP 06/23/18 Insulin Isophan/Regular (Humulin 70/30) 100 Units/Ml Susp, 18 UNIT SC Q8, EA 06/23/18 Omeprazole* (Omeprazole*) 40 Mg Capsule.dr, 40 MG PO DAILY, #30 CAP 06/23/18 Metoprolol Tartrate* (Lopressor*) 50 Mg Tab, 50 MG PO Q8, #60 TAB 06/23/18 Atorvastatin Calcium* (Atorvastatin Calcium*) 20 Mg Tablet, 20 MG PO QHS, #30 TAB 06/23/18 Ondansetron Hcl* (Ondansetron Hcl*) 4 Mg Tablet, 4 MG PO Q4H PRN for NAUSEA AND OR VOMITING, TAB 11/11/17 Budesonide-Formoterol Fumarate* (Symbicort*) 160-4.5 Hfa.aer.ad, 1 PUFF INHALATION BID, #1 EACH 11/11/17 Sennosides* (Senna Lax*) 8.6 Mg Tablet, 1 TAB PO BID, TAB 11/11/17 Multivitamins* (Theragran*) 1 Tab Tab, 1 TAB PO DAILY, TAB 11/11/17 Isosorbide Dinitrate* (Isosorbide Dinitrate*) 10 Mg Tablet, 10 MG PO TID, TAB 11/11/17 Ascorbic Acid* (Vitamin C*) 500 Mg Capsule.sa, 500 MG PO DAILY, CAP 11/11/17 Pantoprazole* (Protonix*) 40 Mg Tablet.dr, 40 MG PO AC BREAKFAST, TAB 08/07/17 Apixaban* (Eliquis*) 5 Mg Tablet, 5 MG PO BID, TAB 08/07/17 Nitroglycerin* (Nitrostat*) 0.4 Mg Tab.subl, 0.4 MG SL Q5MIN PRN for CHEST PAIN, BOTTLE 05/19/17 Duloxetine Hcl* (Cymbalta*) 30 Mg Capsule.dr, 30 MG PO DAILY, CAP 05/19/17 Acetaminophen* (Acetaminophen*) 650 Mg Tablet, 650 MG PO Q6H PRN for MILD TO MODERATE PAIN, #30 TAB 03/18/17 Alprazolam* (Alprazolam*) 0.25 Mg Tablet, 0.25 MG PO TID PRN for ANXIETY, TAB 03/18/17 Ferrous Sulfate* (Ferrous Sulfate*) 325 Mg Tabec, 325 MG PO DAILY, TAB 03/18/17 Medications Current Medications IV Flush (NS 3 ml) 3 ml PER PROTOCOL IV ; Start 07/19/18 at 19:30 Ondansetron HCl (Zofran Inj) 4 mg Q6H PRN IV NAUSEA/VOMITING; Start 07/19/18 at 19:30 Morphine Sulfate (morphine) 2 mg Q4H PRN IV .PAIN 8-10 Last administered on 08/02/18 23:49; Admin Dose 2 MG; Start 07/19/18 at 19:30 Ferrous Sulfate (Ferrous Sulfate (Ec)) 325 mg DAILY PO Last administered on 08/03/18 08:34; Admin Dose 325 MG; Start 07/20/18 at 09:00; Stop 08/19/18 at 08:59 Nitroglycerin (Nitroglycerin (Sl Tab) 0.4 Mg) 1 tab [id number] PRN SL CHEST PAIN; Start 07/19/18 at 19:30 Miscellaneous Information (Pending Santyl Order For Wound Care) This patient pedro... PRN PRN XX WOUND CARE; Start 07/20/18 at 01:30 Lorazepam (Ativan) 0.5 mg Q6 PRN IV AGITATION/ANXIETY Last administered on 07/30/18 05:31; Admin Dose 0.5 MG; Start 07/22/18 at 17:00 Lansoprazole (Prevacid) 30 mg DAILY@06 GTB Last administered on 08/03/18 05:43; Admin Dose 30 MG; Start 07/25/18 at 06:00 Acetaminophen (Tylenol Tab) 650 mg Q6H PRN GTB .PAIN 1-3 OR TEMP Last administ ered on 08/01/18 09:06; Admin Dose 650 MG; Start 07/27/18 at 09:00 Acetaminophen (Tylenol Tab) 650 mg Q6H PRN GTB MILD TO MODERATE PAIN; Start 07/27/18 at 09:00 Ascorbic Acid (Vitamin C) 500 mg DAILY GTB Last administered on 08/03/18 08:33; Admin Dose 500 MG; Start 07/27/18 at 09:00 Atorvastatin Calcium (Lipitor) 20 mg QHS GTB Last administered on 08/02/18 22:23; Admin Dose 20 MG; Start 07/27/18 at 21:00 Duloxetine HCl (Cymbalta) 30 mg DAILY GTB Last administered on 08/03/18 08:33; Admin Dose 30 MG; Start 07/27/18 at 09:00 Gabapentin (Neurontin) 400 mg Q8 GTB Last administered on 08/03/18 05:43; Admin Dose 400 MG; Start 07/27/18 at 14:00 Hydralazine HCl (Apresoline) 50 mg Q8 GTB Last administered on 08/03/18at 05:43; Admin Dose 50 MG; Start 07/27/18 at 14:00 Isosorbide Dinitrate (Isordil) 10 mg TID GTB Last administered on 08/03/18 08:34; Admin Dose 10 MG; Start 07/27/18 at 09:00 Metoprolol Tartrate (Lopressor) 50 mg Q8 GTB Last administered on 08/03/18 05:44; Admin Dose 50 MG; Start 07/27/18 at 14:00 Multivitamins (Multivitamin) 30 ml DAILY GTB Last administered on 08/03/18at 0 8:33; Admin Dose 30 ML; Start 07/27/18 at 09:00 Ondansetron HCl (Zofran Tab) 4 mg Q4H PRN GTB NAUSEA AND/OR VOMITING; Start 07/27/18 at 09:00 Senna (Senokot) 1 tab BID GTB Last administered on 08/03/18 08:34; Admin Dose 1 TAB; Start 07/27/18 at 09:00 Tramadol HCl (Ultram) 50 mg Q6H PRN GTB PAIN LEVEL 4-7; Start 07/27/18 at 09:00 Miscellaneous Information 1 ea NOTE XX ; Start 07/27/18 at 09:00 Glucose (Glutose) 15 gm Q15M PRN PO DECREASED GLUCOSE; Start 07/27/18 at 09:00 Glucose (Glutose) 22.5 gm Q15M PRN PO DECREASED GLUCOSE; Start 07/27/18 at 09:00 Dextrose (D50w Syringe) 25 ml Q15M PRN IV DECREASED GLUCOSE; Start 07/27/18 at 09:00 Dextrose (D50w Syringe) 50 ml Q15M PRN IV DECREASED GLUCOSE; Start 07/27/18 at 09:00 Glucagon (Glucagen) 1 mg Q15M PRN IM DECREASED GLUCOSE; Start 07/27/18 at 09:00 Glucose (Glutose) 15 gm Q15M PRN BUCCAL DECREASED GLUCOSE; Start 07/27/18 at 09:00 Insulin Aspart (Novolog Insulin Pen) NOVOLOG *MODERATE* ALGORI... Q6 SC Last administered on 08/03/18at 05:55; Admin Dose 2 UNIT; Start 07/31/18 at 18:00 Prednisone (Prednisone) 10 mg DAILY GTB Last administered on 08/03/18at 08:33; Admin Dose 10 MG; Start 08/01/18 at 09:00 Insulin Glargine (Lantus) 18 units BID SC Last administered on 08/03/18at 08:40; Admin Dose 18 UNITS; Start 08/02/18 at 09:00 Insulin Human NPH (Humulin N) 20 unit DAILY@0900 SC Last administered on 08/03/18at 08:41; Admin Dose 20 UNIT; Start 08/02/18 at 09:00 Alteplase, Recombinant (Cathflo (Activase)) 2 mg MAY REPEAT X1 PRN CATHETER IF CATHETER REMAINS OCCULUDED; Start 08/03/18 at 06:30 Assessment/Plan Assessment/Plan (Daily) IMP: 1. Ventilator-dependent respiratory failure 2. 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 Dysphagia with G-tube 4. Anemia 5. s/p pacer RECS: 1. Vent support 2. BDs/CPT 3. TF/Free H20 UTE GOODE MD August 03, 2018 13:13
--- NOTE | 2018-08-03 15:21 | CONS ---
Assessment/Plan Assessment/Plan Hospital Course (Demo Recall) IMPRESSION: 1. Permanent pacemaker with proper function at this time, primarily AV pacing. No signs of dysfunction at this time. 2. History of paroxysmal atrial fibrillation and atrial flutter, had been off anticoagulation due to severe thrombocytopenia, has been started on anticoagulation, which was stopped at this time due to severe thrombocytopenia.- had recurrence today 3. Hypertension-today with borderline hypotension. 4. Dyslipidemia. 5. History of aortic valve replacement, bioprosthesis in 06/2017. 6. History of coronary artery disease, status post coronary artery bypass graft surgery in 06/2017 using AHUJA to LAD. 7. 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 8. Diabetes mellitus. 9. Dysphagia, status post G-tube. 10. Chronic respiratory failure, status post tracheostomy. 11.Thrombocytopenia-still severely depressed 12. anemia-s/p transfusion of PRBC's Recc: -Tele -Continue BB/hydralazine but will reduce doses given marginal BP -Continue isordil -Holding antiplatelet/anticoagulation secondary to severe thrombocytopenia -Continue statin -Follow volume status closely with ongoing but improving increased BUN slowly -Continue steroids/IVIG and follow plt count closely Consultation Date/Type/Reason Admit Date/Time Jul 19, 2018 at 18:40 Initial Consult Date 07/22/18 Type of Consult Cardiology Reason for Consultation CHF Requesting Provider: LES TRENT Date/Time of Note DATE: 08/03/18 TIME: 15:18 Exam/Review of Systems Vital Signs Vitals Vital Signs Date Temp Pulse Resp B/P (MAP) Pulse Ox O2 O2 Flow FiO2 Time Delivery Rate 08/03/18 58 20 97/48 (64) 13:57 08/03/18 96 30 13:15 08/03/18 99.0 07:57 08/01/18 Mechanical 15:28 Ventilator Intake and Output 08/02/18 08/02/18 08/03/18 1515:00 23:00 07:00 IntakeIntake Total 1230 ml 1000 ml OutputOutput Total 750 ml 600 ml BalanceBalance 480 ml 400 ml Exam Exam Review of Systems: CONSTITUTIONAL: No fevers, chills. PULMONARY: No sob CARDIOVASCULAR: No chest pain/palpitations GASTROINTESTINAL: No nausea/vomiting. GENITOURINARY: No hematuria/dysuria. MUSCULOSKELETAL: No myagias/arthalgias. PSYCHIATRIC: The patient denies depression. NEUROLOGIC: encephalopathic Constitutional: alert Psych: no complaints Head: normocephalic ENMT: mucosa pink and moist Neck: supple, jvd (9 cm water) Respiratory: diminished breath sounds (at bases/B) Cardiovascular: regular rate and rhythm Gastrointestinal: soft, non-tender Musculoskeletal: muscle weakness (generalized) Extremities: other (bvilateral LE amputation) Labs Result Diagram: 08/02/1852708/02/18527 Results 24hrs Laboratory Tests Test 08/02/18 17:17 08/02/18 22:27 08/03/18 05:54 08/03/18 08:30 Bedside Glucose 143 135 146 131 Test 08/03/18 12:04 Bedside Glucose 98 Medications Medications Current Medications IV Flush (NS 3 ml) 3 ml PER PROTOCOL IV ; Start 07/19/18 at 19:30 Ondansetron HCl (Zofran Inj) 4 mg Q6H PRN IV NAUSEA/VOMITING; Start 07/19/18 at 19:30 Morphine Sulfate (morphine) 2 mg Q4H PRN IV .PAIN 8-10 Last administered on 08/02/18at 23:49; Admin Dose 2 MG; Start 07/19/18 at 19:30 Ferrous Sulfate (Ferrous Sulfate (Ec)) 325 mg DAILY PO Last administered on 08/03/18at 08:34; Admin Dose 325 MG; Start 07/20/18 at 09:00; Stop 08/19/18 at 08:59 Nitroglycerin (Nitroglycerin (Sl Tab) 0.4 Mg) 1 tab [id number] PRN SL CHEST PAIN; Start 07/19/18 at 19:30 Miscellaneous Information (Pending Santyl Order For Wound Care) This patient pedro... PRN PRN XX WOUND CARE; Start 07/20/18 at 01:30 Lorazepam (Ativan) 0.5 mg Q6 PRN IV AGITATION/ANXIETY Last administered on 07/30at 05:31; Admin Dose 0.5 MG; Start 07/22/18 at 17:00 Lansoprazole (Prevacid) 30 mg DAILY@06 GTB Last administered on 08/03/18at 05:43; Admin Dose 30 MG; Start 07/25/18 at 06:00 Acetaminophen (Tylenol Tab) 650 mg Q6H PRN GTB .PAIN 1-3 OR TEMP Last administered on 08/01/18 09:06; Admin Dose 650 MG; Start 07/27/18 at 09:00 Acetaminophen (Tylenol Tab) 650 mg Q6H PRN GTB MILD TO MODERATE PAIN; Start 07/27/18 at 09:00 Ascorbic Acid (Vitamin C) 500 mg DAILY GTB Last administered on 08/03/18 08:33; Admin Dose 500 MG; Start 07/27/18 at 09:00 Atorvastatin Calcium (Lipitor) 20 mg QHS GTB Last administered on 08/02/18 22:23; Admin Dose 20 MG; Start 07/27/18 at 21:00 Duloxetine HCl (Cymbalta) 30 mg DAILY GTB Last administered on 08/03/18 08:33; Admin Dose 30 MG; Start 07/27/18 at 09:00 Gabapentin (Neurontin) 400 mg Q8 GTB Last administered on 08/03/18 13:45; Admin Dose 400 MG; Start 07/27/18 at 14:00 Hydralazine HCl (Apresoline) 50 mg Q8 GTB Last administered on 08/03/18 05:43; Admin Dose 50 MG; Start 07/27/18 at 14:00 Isosorbide Dinitrate (Isordil) 10 mg TID GTB Last administered on 08/03/18 08:34; Admin Dose 10 MG; Start 07/27/18 at 09:00 Metoprolol Tartrate (Lopressor) 50 mg Q8 GTB Last administered on 08/03/18 05:44; Admin Dose 50 MG; Start 07/27/18 at 14:00 Multivitamins (Multivitamin) 30 ml DAILY GTB Last administered on 08/03/18 08:33; Admin Dose 30 ML; Start 07/27/18 at 09:00 Ondansetron HCl (Zofran Tab) 4 mg Q4H PRN GTB NAUSEA AND/OR VOMITING; Start 07/27/18 at 09:00 Senna (Senokot) 1 tab BID GTB Last administered on 08/03/18 08:34; Admin Dose 1 TAB; Start 07/27/18 at 09:00 Tramadol HCl (Ultram) 50 mg Q6H PRN GTB PAIN LEVEL 4-7; Start 07/27/18 at 09:00 Miscellaneous Information 1 ea NOTE XX ; Start 07/27/18 at 09:00 Glucose (Glutose) 15 gm Q15M PRN PO DECREASED GLUCOSE; Start 07/27/18 at 09:00 Glucose (Glutose) 22.5 gm Q15M PRN PO DECREASED GLUCOSE; Start 07/27/18 at 09:00 Dextrose (D50w Syringe) 25 ml Q15M PRN IV DECREASED GLUCOSE; Start 07/27/18 at 09:00 Dextrose (D50w Syringe) 50 ml Q15M PRN IV DECREASED GLUCOSE; Start 07/27/18 at 09:00 Glucagon (Glucagen) 1 mg Q15M PRN IM DECREASED GLUCOSE; Start 07/27/18 at 09:00 Glucose (Glutose) 15 gm Q15M PRN BUCCAL DECREASED GLUCOSE; Start 07/27/18 at 09:00 Insulin Aspart (Novolog Insulin Pen) NOVOLOG *MODERATE* ALGORI... Q6 SC Last administered on 08/03/18at 05:55; Admin Dose 2 UNIT; Start 07/31/18 at 18:00 Prednisone (Prednisone) 10 mg DAILY GTB Last administered on 08/03/18 08:33; Admin Dose 10 MG; Start 08/01/18 at 09:00 Insulin Glargine (Lantus) 18 units BID SC Last administered on 08/03/18at 08:40; Admin Dose 18 UNITS; Start 08/02/18 at 09:00 Insulin Human NPH (Humulin N) 20 unit DAILY@0900 SC Last administered on 08/03/18at 08:41; Admin Dose 20 UNIT; Start 08/02/18 at 09:00 Alteplase, Recombinant (Cathflo (Activase)) 2 mg MAY REPEAT X1 PRN CATHETER IF CATHETER REMAINS OCCULUDED; Start 08/03/18 at 06:30 RODGER MIRELES August 03, 2018 15:21
[2018-08-03] MEDS ORDERED: METOPROLOL 5 MG INJ IV PRN (15:30)
[2018-08-03] MEDS: ATORVASTATIN 20 MG TAB GTB SCH (21:41)
[2018-08-03] MEDS: METOPROLOL 25 MG TAB GTB SCH (21:42)
--- NOTE | 2018-08-03 21:51 | CONS ---
Assessment/Plan Assessment/Plan Assessment/Plan (Daily) 1. Uremia with BUN rising to 100, Cr normal 3. ITP 4. severe thrombocytopenia 5. accelerated HTN 6. VDRF s/p Tracheostomy 7. Dysphagia S/p G tube Plan: Continue Hydralazine 50mg PO Q8 hr and MTP 50mg pO Q 8 hr Na 135, BUN/Cr 62/0.78 BP stable - no labs today, d/c prednisone s/p PRBC, Hb 10/30 today will follow up Consultation Date/Type/Reason Admit Date/Time Jul 19, 2018 at 18:40 Initial Consult Date 07/22/18 Type of Consult NEPHROLOGY Requesting Provider: LES TRENT Date/Time of Note DATE: 08/03/18 TIME: 21:49 Exam/Review of Systems Exam Vitals Vital Signs Date Temp Pulse Resp B/P (MAP) Pulse Ox O2 O2 Flow FiO2 Time Delivery Rate 08/03/18 97.8 82 14 95/52 (66) 94 20:09 08/03/18 30 17:23 08/01/18 Mechanical 15:28 Ventilator Intake and Output 08/02/18 08/02/18 08/03/18 1414:59 22:59 06:59 IntakeIntake Total 1230 ml 1000 ml OutputOutput Total 750 ml 600 ml BalanceBalance 480 ml 400 ml Exam Constitutional: alert, awake + tracheostomy Respiratory: clear to auscultation, normal air movement, diminished breath sounds Cardiovascular: regular rate and rhythm, nl pulses Gastrointestinal: soft, non-tender, + g tube in place Musculoskeletal: nl extremities to inspection, muscle weakness, swelling Extremities: normal pulses Neurological: non focal, Results Result Diagram: 08/02/18 0528 08/02/18 0528 Results 24hrs Laboratory Tests Test 08/02/18 22:27 08/03/18 05:54 08/03/18 08:30 08/03/18 12:04 Bedside Glucose 135 146 131 98 Test 08/03/18 17:16 Bedside Glucose 92 Medications Medication Current Medications IV Flush (NS 3 ml) 3 ml PER PROTOCOL IV ; Start 07/19/18 at 19:30 Ondansetron HCl (Zofran Inj) 4 mg Q6H PRN IV NAUSEA/VOMITING; Start 07/19/18 at 19:30 Morphine Sulfate (morphine) 2 mg Q4H PRN IV .PAIN 8-10 Last administered on 08/02/18 23:49; Admin Dose 2 MG; Start 07/19/18 at 19:30 Ferrous Sulfate (Ferrous Sulfate (Ec)) 325 mg DAILY PO Last administered on 08/03/18 08:34; Admin Dose 325 MG; Start 07/20/18 at 09:00; Stop 08/19/18 at 08:59 Nitroglycerin (Nitroglycerin (Sl Tab) 0.4 Mg) 1 tab [id number] PRN SL CHEST PAIN; Start 07/19/18 at 19:30 Miscellaneous Information (Pending Santyl Order For Wound Care) This patient h a... PRN PRN XX WOUND CARE; Start 07/20/18 at 01:30 Lorazepam (Ativan) 0.5 mg Q6 PRN IV AGITATION/ANXIETY Last administered on 07/30/18 05:31; Admin Dose 0.5 MG; Start 07/22/18 at 17:00 Lansoprazole (Prevacid) 30 mg DAILY@06 GTB Last administered on 08/03/18 05:43; Admin Dose 30 MG; Start 07/25/18 at 06:00 Acetaminophen (Tylenol Tab) 650 mg Q6H PRN GTB .PAIN 1-3 OR TEMP Last administered on 08/01/18 09:06; Admin Dose 650 MG; Start 07/27/18 at 09:00 Acetaminophen (Tylenol Tab) 650 mg Q6H PRN GTB MILD TO MODERATE PAIN; Start 07/27/18 at 09:00 Ascorbic Acid (Vitamin C) 500 mg DAILY GTB Last administered on 08/03/18 08:33; Admin Dose 500 MG; Start 07/27/18 at 09:00 Atorvastatin Calcium (Lipitor) 20 mg QHS GTB Last administered on 08/02/18 22:23; Admin Dose 20 MG; Start 07/27/18 at 21:00 Duloxetine HCl (Cymbalta) 30 mg DAILY GTB Last administered on 08/03/18 08:33; Admin Dose 30 MG; Start 07/27/18 at 09:00 Gabapentin (Neurontin) 400 mg Q8 GTB Last administered on 08/03/18 13:45; Admin Dose 400 MG; Start 07/27/18 at 14:00 Isosorbide Dinitrate (Isordil) 10 mg TID GTB Last administered on 08/03/18 08:34; Admin Dose 10 MG; Start 07/27/18 at 09:00 Multivitamins (Multivitamin) 30 ml DAILY GTB Last administered on 08/03/18 08:33; Admin Dose 30 ML; Start 07/27/18 at 09:00 Ondansetron HCl (Zofran Tab) 4 mg Q4H PRN GTB NAUSEA AND/OR VOMITING; Start 07/27/18 at 09:00 Senna (Senokot) 1 tab BID GTB Last administered on 08/03/18 08:34; Admin Dose 1 TAB; Start 07/27/18 at 09:00 Tramadol HCl (Ultram) 50 mg Q6H PRN GTB PAIN LEVEL 4-7; Start 07/27/18 at 09:00 Miscellaneous Information 1 ea NOTE XX ; Start 07/27/18 at 09:00 Glucose (Glutose) 15 gm Q15M PRN PO DECREASED GLUCOSE; Start 07/27/18 at 09:00 Glucose (Glutose) 22.5 gm Q15M PRN PO DECREASED GLUCOSE; Start 07/27/18 at 09 :00 Dextrose (D50w Syringe) 25 ml Q15M PRN IV DECREASED GLUCOSE; Start 07/27/18 at 09:00 Dextrose (D50w Syringe) 50 ml Q15M PRN IV DECREASED GLUCOSE; Start 07/27/18 at 09:00 Glucagon (Glucagen) 1 mg Q15M PRN IM DECREASED GLUCOSE; Start 07/27/18 at 09:00 Glucose (Glutose) 15 gm Q15M PRN BUCCAL DECREASED GLUCOSE; Start 07/27/18 at 09:00 Insulin Aspart (Novolog Insulin Pen) NOVOLOG *MODERATE* ALGORI... Q6 SC Last administered on 08/03/18at 05:55; Admin Dose 2 UNIT; Start 07/31/18 at 18:00 Prednisone (Prednisone) 10 mg DAILY GTB Last administered on 08/03/18 08:33; Admin Dose 10 MG; Start 08/01/18 at 09:00 Insulin Glargine (Lantus) 18 units BID SC Last administered on 08/03/18 08:40; Admin Dose 18 UNITS; Start 08/02/18 at 09:00 Insulin Human NPH (Humulin N) 20 unit DAILY@0900 SC Last administered on 08/03/18at 08:41; Admin Dose 20 UNIT; Start 08/02/18 at 09:00 Alteplase, Recombinant (Cathflo (Activase)) 2 mg MAY REPEAT X1 PRN CATHETER IF CATHETER REMAINS OCCULUDED; Start 08/03/18 at 06:30 Hydralazine HCl (Apresoline) 25 mg Q8 GTB ; Start 08/03/18 at 22:00 Metoprolol Tartrate (Lopressor) 25 mg Q8 GTB ; Start 08/03/18 at 22:00 Metoprolol Tartrate (Lopressor) 5 mg Q4H PRN IV HR>110 Hold SBP<100; Start 08/03/18 at 15:30 OCTAVIO BOX MD August 03, 2018 21:51
[2018-08-04] VITALS (23 sets, daily range): BP systolic 94–113; BP diastolic 45–60; PULSE 70–94; RESP 14–20
[2018-08-04] MEDS: METOPROLOL 25 MG TAB GTB SCH ×2 (05:54→21:00)
[2018-08-04] MEDS: LANSOPRAZOLE 30 MG CAP GTB SCH (05:55)
[2018-08-04] MEDS: GABAPENTIN 400 MG CAP GTB SCH ×3 (05:55→21:24)
[2018-08-04] MEDS: INSULIN ASPART [NOVOLOG] 3 ML PEN SC SCH ×4 (06:35→23:08)
[2018-08-04] MEDS: MULTIVITAMINS 30 ML CUP GTB SCH (09:38)
[2018-08-04] MEDS: DULOXETINE 30 MG CAP DR GTB SCH (09:38)
[2018-08-04] MEDS: ISOSORBIDE DINITRATE 10 MG TAB GTB SCH ×3 (09:39→21:00)
[2018-08-04] MEDS: FERROUS SULFATE (EC) 325 MG TAB PO SCH (09:39)
[2018-08-04] MEDS: SENNA TAB GTB SCH ×2 (09:39→21:14)
[2018-08-04] MEDS: ASCORBIC ACID 500 MG TAB GTB SCH (09:39)
[2018-08-04] MEDS: INSULIN GLARGINE [LANTus] (100 UNITS/ML) SYG SC SCH ×2 (10:05→21:19)
[2018-08-04] MEDS: NPH, HUMAN INSULIN ISOPHANE 3ML VIAL SC SCH (10:06)
--- NOTE | 2018-08-04 11:40 | CONS ---
Assessment/Plan Assessment/Plan Hospital Course (Demo Recall) IMPRESSION: 1. Permanent pacemaker with proper function at this time, primarily AV pacing. No signs of dysfunction at this time. 2. History of paroxysmal atrial fibrillation and atrial flutter, had been off anticoagulation due to severe thrombocytopenia, has been started on anticoagulation, which was stopped at this time due to severe thrombocytopenia.- had recurrence today 3. Hypertension-today with borderline hypotension. 4. Dyslipidemia. 5. History of aortic valve replacement, bioprosthesis in 06/2017. 6. History of coronary artery disease, status post coronary artery bypass graft surgery in 06/2017 using AHUJA to LAD. 7. 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 8. Diabetes mellitus. 9. Dysphagia, status post G-tube. 10. Chronic respiratory failure, status post tracheostomy. 11.Thrombocytopenia-still severely depressed but slowly increasing 12. anemia-s/p transfusion of PRBC's Recc: -Tele -Continue BB/hydralazine but will reduce doses further given marginal BP -Continue isordil -Holding antiplatelet/anticoagulation secondary to severe thrombocytopenia -Continue statin -Follow volume status closely with ongoing but improving increased BUN slowly -Continue steroids/IVIG and follow plt count closely Consultation Date/Type/Reason Admit Date/Time Jul 19, 2018 at 18:40 Initial Consult Date 07/22/18 Type of Consult Cardiology Reason for Consultation AVR/cabg Requesting Provider: LES TRENT Date/Time of Note DATE: 08/04/18 TIME: 11:38 Exam/Review of Systems Vital Signs Vitals Vital Signs Date Temp Pulse Resp B/P (MAP) Pulse Ox O2 O2 Flow FiO2 Time Delivery Rate 08/04/18 99.5 70 20 98/45 (62) 97 11:26 08/04/18 30 07:20 08/01/18 Mechanical 15:28 Ventilator Intake and Output 08/03/18 08/03/18 08/04/18 1414:59 22:59 06:59 IntakeIntake Total 1065 ml OutputOutput Total 300 ml BalanceBalance 765 ml Exam Exam Review of Systems: CONSTITUTIONAL: No fevers, chills. PULMONARY: No sob CARDIOVASCULAR: No chest pain/palpitations GASTROINTESTINAL: No nausea/vomiting. GENITOURINARY: No hematuria/dysuria. MUSCULOSKELETAL: No myagias/arthalgias. PSYCHIATRIC: The patient denies depression. NEUROLOGIC: No weakness Constitutional: alert Psych: no complaints Head: normocephalic ENMT: mucosa pink and moist Neck: supple, jvd (9 cm water), other (trached) Respiratory: diminished breath sounds (at bases/B) Cardiovascular: regular rate and rhythm Gastrointestinal: soft, non-tender Musculoskeletal: muscle tone (normal) Extremities: edema (none) Neurological: lethargic Labs Result Diagram: 08/04/18 0454 08/04/18 0454 Results 24hrs Laboratory Tests Test 08/03/18 12:04 08/03/18 17:16 08/03/18 21:49 08/03/18 23:51 Bedside Glucose 98 92 106 120 Test 08/04/18 04:54 08/04/18 06:02 08/04/18 10:03 White Blood Count 6.1 Red Blood Count 3.09 L Hemoglobin 8.1 L Hematocrit 26.9 L Mean Corpuscular Volume 87.1 Mean Corpuscular 26.2 L Hemoglobin Mean Corpuscular 30.1 L Hemoglobin Concent Red Cell Distribution 18.5 H Width Platelet Count 54 #L Mean Platelet Volume 11.7 H Immature Granulocytes % 0.700 H Neutrophils % 77.5 H Lymphocytes % 15.3 Monocytes % 6.0 Eosinophils % 0.3 Basophils % 0.2 Nucleated Red Blood 0.0 Cells % Immature Granulocytes # 0.040 H Neutrophils # 4.8 Lymphocytes # 0.9 Monocytes # 0.4 Eosinophils # 0.0 Basophils # 0.0 Nucleated Red Blood 0.0 Cells # Sodium Level 136 Potassium Level 3.6 Chloride Level 95 L Carbon Dioxide Level 35 H Anion Gap 6 Blood Urea Nitrogen 68 H Creatinine 0.98 Est Glomerular Filtrat > 60 Rate mL/min Glucose Level 148 Calcium Level 7.6 L Bedside Glucose 167 161 Medications Medications Current Medications IV Flush (NS 3 ml) 3 ml PER PROTOCOL IV ; Start 07/19/18 at 19:30 Ondansetron HCl (Zofran Inj) 4 mg Q6H PRN IV NAUSEA/VOMITING; Start 07/19/18 at 19:30 Morphine Sulfate (morphine) 2 mg Q4H PRN IV .PAIN 8-10 Last administered on 08/02/18at 23:49; Admin Dose 2 MG; Start 07/19/18 at 19:30 Ferrous Sulfate (Ferrous Sulfate (Ec)) 325 mg DAILY PO Last administered on 08/04/18 09:39; Admin Dose 325 MG; Start 07/20/18 at 09:00; Stop 08/19/18 at 08:59 Nitroglycerin (Nitroglycerin (Sl Tab) 0.4 Mg) 1 tab [id number] PRN SL CHEST PAIN; Start 07/19/18 at 19:30 Miscellaneous Information (Pending Santyl Order For Wound Care) This patient pedro... PRN PRN XX WOUND CARE; Start 07/20/18 at 01:30 Lorazepam (Ativan) 0.5 mg Q6 PRN IV AGITATION/ANXIETY Last administered on 07/30/18 05:31; Admin Dose 0.5 MG; Start 07/22/18 at 17:00 Lansoprazole (Prevacid) 30 mg DAILY@06 GTB Last administered on 08/04/18 05:55; Admin Dose 30 MG; Start 07/25/18 at 06:00 Acetaminophen (Tylenol Tab) 650 mg Q6H PRN GTB .PAIN 1-3 OR TEMP Last administered on 08/01/18 09:06; Admin Dose 650 MG; Start 07/27/18 at 09:00 Acetaminophen (Tylenol Tab) 650 mg Q6H PRN GTB MILD TO MODERATE PAIN; Start 07/27/18 at 09:00 Ascorbic Acid (Vitamin C) 500 mg DAILY GTB Last administered on 08/04/18 09:39; Admin Dose 500 MG; Start 07/27/18 at 09:00 Atorvastatin Calcium (Lipitor) 20 mg QHS GTB Last administered on 08/03/18 21:41; Admin Dose 20 MG; Start 07/27/18 at 21:00 Duloxetine HCl (Cymbalta) 30 mg DAILY GTB Last administered on 08/04/18 09:38; Admin Dose 30 MG; Start 07/27/18 at 09:00 Gabapentin (Neurontin) 400 mg Q8 GTB Last administered on 08/04/18 05:55; Admin Dose 400 MG; Start 07/27/18 at 14:00 Isosorbide Dinitrate (Isordil) 10 mg TID GTB Last administered on 08/04/18 09:39; Admin Dose 10 MG; Start 07/27/18 at 09:00 Multivitamins (Multivitamin) 30 ml DAILY GTB Last administered on 08/04/18at 09:38; Admin Dose 30 ML; Start 07/27/18 at 09:00 Ondansetron HCl (Zofran Tab) 4 mg Q4H PRN GTB NAUSEA AND/OR VOMITING; Start 07/27/18 at 09:00 Senna (Senokot) 1 tab BID GTB Last administered on 08/04/18at 09:39; Admin Dose 1 TAB; Start 07/27/18 at 09:00 Tramadol HCl (Ultram) 50 mg Q6H PRN GTB PAIN LEVEL 4-7; Start 07/27/18 at 09:00 Miscellaneous Information 1 ea NOTE XX ; Start 07/27/18 at 09:00 Glucose (Glutose) 15 gm Q15M PRN PO DECREASED GLUCOSE; Start 07/27/18 at 09:00 Glucose (Glutose) 22.5 gm Q15M PRN PO DECREASED GLUCOSE; Start 07/27/18 at 09:00 Dextrose (D50w Syringe) 25 ml Q15M PRN IV DECREASED GLUCOSE; Start 07/27/18 at 09:00 Dextrose (D50w Syringe) 50 ml Q15M PRN IV DECREASED GLUCOSE; Start 07/27/18 at 09:00 Glucagon (Glucagen) 1 mg Q15M PRN IM DECREASED GLUCOSE; Start 07/27/18 at 09:00 Glucose (Glutose) 15 gm Q15M PRN BUCCAL DECREASED GLUCOSE; Start 07/27/18 at 09:00 Insulin Aspart (Novolog Insulin Pen) NOVOLOG *MODERATE* ALGORI... Q6 SC Last administered on 08/04/18at 06:35; Admin Dose 2 UNIT; Start 07/31/18 at 18:00 Insulin Glargine (Lantus) 18 units BID SC Last administered on 08/04/18at 10:05; Admin Dose 18 UNITS; Start 08/02/18 at 09:00 Insulin Human NPH (Humulin N) 20 unit DAILY@0900 SC Last administered on 08/04/18at 10:06; Admin Dose 20 UNIT; Start 08/02/18 at 09:00 Alteplase, Recombinant (Cathflo (Activase)) 2 mg MAY REPEAT X1 PRN CATHETER IF CATHETER REMAINS OCCULUDED; Start 08/03/18 at 06:30 Hydralazine HCl (Apresoline) 25 mg Q8 GTB ; Start 08/03/18 at 22:00 Metoprolol Tartrate (Lopressor) 25 mg Q8 GTB ; Start 08/03/18 at 22:00 Metoprolol Tartrate (Lopressor) 5 mg Q4H PRN IV HR>110 Hold SBP<100; Start 08/03/18 at 15:30 RODGER MIRELES August 04, 2018 11:40
--- NOTE | 2018-08-04 12:15 | CONS ---
Assessment/Plan Assessment/Plan Assessment/Plan (Daily) 1. Uremia with BUN rising to 100, Cr normal 3. ITP 4. severe thrombocytopenia 5. accelerated HTN 6. VDRF s/p Tracheostomy 7. Dysphagia S/p G tube Plan: Continue Hydralazine 50mg PO Q8 hr and MTP 50mg pO Q 8 hr Na 136, BUN/Cr68/0.98 BP stable s/p PRBC, Hb 8/ today will follow up Consultation Date/Type/Reason Admit Date/Time Jul 19, 2018 at 18:40 Initial Consult Date 07/22/18 Type of Consult NEPHROLOGY Requesting Provider: LES TRENT Date/Time of Note DATE: 08/04/18 TIME: 12:15 Exam/Review of Systems Exam Vitals Vital Signs Date Temp Pulse Resp B/P (MAP) Pulse Ox O2 O2 Flow FiO2 Time Delivery Rate 08/04/18 99.5 70 20 98/45 (62) 97 11:26 08/04/18 30 07:20 08/01/18 Mechanical 15:28 Ventilator Intake and Output 08/03/18 08/03/18 08/04/18 1515:00 23:00 07:00 IntakeIntake Total 1065 ml OutputOutput Total 300 ml BalanceBalance 765 ml Results Result Diagram: 08/04/18 0454 08/04/18 0454 Results 24hrs Laboratory Tests Test 08/03/18 17:16 08/03/18 21:49 08/03/18 23:51 08/04/18 04:54 Bedside Glucose 92 106 120 White Blood Count 6.1 Red Blood Count 3.09 L Hemoglobin 8.1 L Hematocrit 26.9 L Mean Corpuscular Volume 87.1 Mean Corpuscular 26.2 L Hemoglobin Mean Corpuscular 30.1 L Hemoglobin Concent Red Cell Distribution 18.5 H Width Platelet Count 54 #L Mean Platelet Volume 11.7 H Immature Granulocytes % 0.700 H Neutrophils % 77.5 H Lymphocytes % 15.3 Monocytes % 6.0 Eosinophils % 0.3 Basophils % 0.2 Nucleated Red Blood 0.0 Cells % Immature Granulocytes # 0.040 H Neutrophils # 4.8 Lymphocytes # 0.9 Monocytes # 0.4 Eosinophils # 0.0 Basophils # 0.0 Nucleated Red Blood 0.0 Cells # Sodium Level 136 Potassium Level 3.6 Chloride Level 95 L Carbon Dioxide Level 35 H Anion Gap 6 Blood Urea Nitrogen 68 H Creatinine 0.98 Est Glomerular Filtrat > 60 Rate mL/min Glucose Level 148 Calcium Level 7.6 L Test 08/04/18 06:02 08/04/18 10:03 Bedside Glucose 167 161 Medications Medication Current Medications IV Flush (NS 3 ml) 3 ml PER PROTOCOL IV ; Start 07/19/18 at 19:30 Ondansetron HCl (Zofran Inj) 4 mg Q6H PRN IV NAUSEA/VOMITING; Start 07/19/18 at 19:30 Morphine Sulfate (morphine) 2 mg Q4H PRN IV .PAIN 8-10 Last administered on 08/02/18 23:49; Admin Dose 2 MG; Start 07/19/18 at 19:30 Ferrous Sulfate (Ferrous Sulfate (Ec)) 325 mg DAILY PO Last administered on 08/04/18 09:39; Admin Dose 325 MG; Start 07/20/18 at 09:00; Stop 08/19/18 at 08:59 Nitroglycerin (Nitroglycerin (Sl Tab) 0.4 Mg) 1 tab [id number] PRN SL CHEST PAIN; Start 07/19/18 at 19:30 Miscellaneous Information (Pending Santyl Order For Wound Care) This patient pedro... PRN PRN XX WOUND CARE; Start 07/20/18 at 01:30 Lorazepam (Ativan) 0.5 mg Q6 PRN IV AGITATION/ANXIETY Last administered on 07/30/18 05:31; Admin Dose 0.5 MG; Start 07/22/18 at 17:00 Lansoprazole (Prevacid) 30 mg DAILY@06 GTB Last administered on 08/04/18 05:55; Admin Dose 30 MG; Start 07/25/18 at 06:00 Acetaminophen (Tylenol Tab) 650 mg Q6H PRN GTB .PAIN 1-3 OR TEMP Last administered on 08/01/18 09:06; Admin Dose 650 MG; Start 07/27/18 at 09:00 Acetaminophen (Tylenol Tab) 650 mg Q6H PRN GTB MILD TO MODERATE PAIN; Start 07/27/18 at 09:00 Ascorbic Acid (Vitamin C) 500 mg DAILY GTB Last administered on 08/04/18 09:39; Admin Dose 500 MG; Start 07/27/18 at 09:00 Atorvastatin Calcium (Lipitor) 20 mg QHS GTB Last administered on 08/03/18at 21:41; Admin Dose 20 MG; Start 07/27/18 at 21:00 Duloxetine HCl (Cymbalta) 30 mg DAILY GTB Last administered on 08/04/18 09:38; Admin Dose 30 MG; Start 07/27/18 at 09:00 Gabapentin (Neurontin) 400 mg Q8 GTB Last administered on 08/04/18at 05:55; Admin Dose 400 MG; Start 07/27/18 at 14:00 Isosorbide Dinitrate (Isordil) 10 mg TID GTB Last administered on 08/04/18 09:39; Admin Dose 10 MG; Start 07/27/18 at 09:00 Multivitamins (Multivitamin) 30 ml DAILY GTB Last administered on 08/04/18 09:38; Admin Dose 30 ML; Start 07/27/18 at 09:00 Ondansetron HCl (Zofran Tab) 4 mg Q4H PRN GTB NAUSEA AND/OR VOMITING; Start 07/27/18 at 09:00 Senna (Senokot) 1 tab BID GTB Last administered on 08/04/18at 09:39; Admin Dose 1 TAB; Start 07/27/18 at 09:00 Tramadol HCl (Ultram) 50 mg Q6H PRN GTB PAIN LEVEL 4-7; Start 07/27/18 at 09:00 Miscellaneous Information 1 ea NOTE XX ; Start 07/27/18 at 09:00 Glucose (Glutose) 15 gm Q15M PRN PO DECREASED GLUCOSE; Start 07/27/18 at 09:00 Glucose (Glutose) 22.5 gm Q15M PRN PO DECREASED GLUCOSE; Start 07/27/18 at 09:00 Dextrose (D50w Syringe) 25 ml Q15M PRN IV DECREASED GLUCOSE; Start 07/27/18 at 09:00 Dextrose (D50w Syringe) 50 ml Q15M PRN IV DECREASED GLUCOSE; Start 07/27/18 at 09:00 Glucagon (Glucagen) 1 mg Q15M PRN IM DECREASED GLUCOSE; Start 07/27/18 at 09:00 Glucose (Glutose) 15 gm Q15M PRN BUCCAL DECREASED GLUCOSE; Start 07/27/18 at 09:00 Insulin Aspart (Novolog Insulin Pen) NOVOLOG *MODERATE* ALGORI... Q6 SC Last administered on 08/04/18at 12:13; Admin Dose 4 UNIT; Start 07/31/18 at 18:00 Insulin Glargine (Lantus) 18 units BID SC Last administered on 08/04/18at 10:05; Admin Dose 18 UNITS; Start 08/02/18 at 09:00 Insulin Human NPH (Humulin N) 20 unit DAILY@0900 SC Last administered on 08/04/18at 10:06; Admin Dose 20 UNIT; Start 08/02/18 at 09:00 Alteplase, Recombinant (Cathflo (Activase)) 2 mg MAY REPEAT X1 PRN CATHETER IF CATHETER REMAINS OCCULUDED; Start 08/03/18 at 06:30 Metoprolol Tartrate (Lopressor) 5 mg Q4H PRN IV HR>110 Hold SBP<100; Start 08/03/18 at 15:30 Hydralazine HCl (Apresoline) 25 mg Q12 GTB ; Start 08/04/18 at 21:00; Status UNV Metoprolol Tartrate (Lopressor) 25 mg Q12 GTB ; Start 08/04/18 at 21:00; Status UNV OCTAVIO BOX MD August 04, 2018 12:15
--- NOTE | 2018-08-04 12:31 | PN ---
Date/Time of Note Date/Time of Note DATE: 08/04/18 TIME: 12:26 Assessment/Plan VTE Prophylaxis Risk score (from Ns)>0 risk: 7 SCD applied (from [facility]): No SCD contraindicated: other (BKA) Pharmacological prophylaxis: NA/contraindicated Pharm contraindication: thrombocytopenia Lines/Catheters IV C[facility]ter Type (from [facility] Mid Line Central line still needed: Yes Urinary Cath still in place: No Assessment/Plan Hospital Course Patient continues on ventilatory support, lethargic but arousable, platelet count is 54,000 today. 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 Pt continued on Prednisone. Dr. Inman is following in hematology consultation. -Anemia, monitor H&H. -VDRF with tracheostomy -Hx of Atrial fibrillation and atrial flutter. Continue metoprolol, unable to tolerate anticoagulation due to severe thrombocytopenia. -Cardiomyopathy with ejection fraction of 40% -Diabetes mellitus. Continue Lantus and NovoLog. 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 -Hx of Stage III sacral decubitus ulcer Further recommendations based on clinical course. Plan of care discussed with Dr. Villatoro. Result Diagram: 08/04/18 0454 08/04/18 0454 Results 24hrs Laboratory Tests Test 08/03/18 17:16 08/03/18 21:49 08/03/18 23:51 08/04/18 04:54 Bedside Glucose 92 106 120 White Blood Count 6.1 Red Blood Count 3.09 L Hemoglobin 8.1 L Hematocrit 26.9 L Mean Corpuscular Volume 87.1 Mean Corpuscular 26.2 L Hemoglobin Mean Corpuscular 30.1 L Hemoglobin Concent Red Cell Distribution 18.5 H Width Platelet Count 54 #L Mean Platelet Volume 11.7 H Immature Granulocytes % 0.700 H Neutrophils % 77.5 H Lymphocytes % 15.3 Monocytes % 6.0 Eosinophils % 0.3 Basophils % 0.2 Nucleated Red Blood 0.0 Cells % Immature Granulocytes # 0.040 H Neutrophils # 4.8 Lymphocytes # 0.9 Monocytes # 0.4 Eosinophils # 0.0 Basophils # 0.0 Nucleated Red Blood 0.0 Cells # Sodium Level 136 Potassium Level 3.6 Chloride Level 95 L Carbon Dioxide Level 35 H Anion Gap 6 Blood Urea Nitrogen 68 H Creatinine 0.98 Est Glomerular Filtrat > 60 Rate mL/min Glucose Level 148 Calcium Level 7.6 L Test 08/04/18 06:02 08/04/18 10:03 08/04/18 12:05 Bedside Glucose 167 161 190 Exam/Review of Systems Exam Vitals Vital Signs Date Temp Pulse Resp B/P (MAP) Pulse Ox O2 O2 Flow FiO2 Time Delivery Rate 08/04/18 99.5 70 20 98/45 (62) 97 11:26 08/04/18 30 11:15 08/01/18 Mechanical 15:28 Ventilator Intake and Output 08/03/18 08/03/18 08/04/18 1515:00 23:00 07:00 IntakeIntake Total 1065 ml OutputOutput Total 300 ml BalanceBalance 765 ml Constitutional: alert, frail Neck: other (trach) Respiratory: diminished breath sounds Cardiovascular: irregular rhythm, other (PPM) Gastrointestinal: soft, non-tender, other (G tube , colostomy) Extremities: other (Bilateral BKA) Neurological: lethargic Skin: other (Sacral ulcer) Results Results 24hrs Laboratory Tests Test 08/03/18 17:16 08/03/18 21:49 08/03/18 23:51 08/04/18 04:54 Bedside Glucose 92 106 120 White Blood Count 6.1 Red Blood Count 3.09 L Hemoglobin 8.1 L Hematocrit 26.9 L Mean Corpuscular Volume 87.1 Mean Corpuscular 26.2 L Hemoglobin Mean Corpuscular 30.1 L Hemoglobin Concent Red Cell Distribution 18.5 H Width Platelet Count 54 #L Mean Platelet Volume 11.7 H Immature Granulocytes % 0.700 H Neutrophils % 77.5 H Lymphocytes % 15.3 Monocytes % 6.0 Eosinophils % 0.3 Basophils % 0.2 Nucleated Red Blood 0.0 Cells % Immature Granulocytes # 0.040 H Neutrophils # 4.8 Lymphocytes # 0.9 Monocytes # 0.4 Eosinophils # 0.0 Basophils # 0.0 Nucleated Red Blood 0.0 Cells # Sodium Level 136 Potassium Level 3.6 Chloride Level 95 L Carbon Dioxide Level 35 H Anion Gap 6 Blood Urea Nitrogen 68 H Creatinine 0.98 Est Glomerular Filtrat > 60 Rate mL/min Glucose Level 148 Calcium Level 7.6 L Test 08/04/18 06:02 08/04/18 10:03 08/04/18 12:05 Bedside Glucose 167 161 190 Medications Medication Current Medications IV Flush (NS 3 ml) 3 ml PER PROTOCOL IV ; Start 07/19/18 at 19:30 Ondansetron HCl (Zofran Inj) 4 mg Q6H PRN IV NAUSEA/VOMITING; Start 07/19/18 at 19:30 Morphine Sulfate (morphine) 2 mg Q4H PRN IV .PAIN 8-10 Last administered on 08/02 23:49; Admin Dose 2 MG; Start 07/19/18 at 19:30 Ferrous Sulfate (Ferrous Sulfate (Ec)) 325 mg DAILY PO Last administered on 08/04/18 09:39; Admin Dose 325 MG; Start 07/20/18 at 09:00; Stop 08/19/18 at 08:59 Nitroglycerin (Nitroglycerin (Sl Tab) 0.4 Mg) 1 tab [id number] PRN SL CHEST PAIN; Start 07/19/18 at 19:30 Miscellaneous Information (Pending [facility] Order For Wound Care) This patient pedro... PRN PRN XX WOUND CARE; Start 07/20/18 at 01:30 Lorazepam (Ativan) 0.5 mg Q6 PRN IV AGITATION/ANXIETY Last administered on 07/30/18 05:31; Admin Dose 0.5 MG; Start 07/22/18 at 17:00 Lansoprazole (Prevacid) 30 mg DAILY@06 GTB Last administered on 08/04/18 05:55; Admin Dose 30 MG; Start 07/25/18 at 06:00 Acetaminophen (Tylenol Tab) 650 mg Q6H PRN GTB .PAIN 1-3 OR TEMP Last administered on 08/01/18 09:06; Admin Dose 650 MG; Start 07/27/18 at 09:00 Acetaminophen (Tylenol Tab) 650 mg Q6H PRN GTB MILD TO MODERATE PAIN; Start 07/27/18 at 09:00 Ascorbic Acid (Vitamin C) 500 mg DAILY GTB Last administered on 08/04/18 09:39; Admin Dose 500 MG; Start 07/27/18 at 09:00 Atorvastatin Calcium (Lipitor) 20 mg QHS GTB Last administered on 08/03/18 21:41; Admin Dose 20 MG; Start 07/27/18 at 21:00 Duloxetine HCl (Cymbalta) 30 mg DAILY GTB Last administered on 08/04/18 09:38; Admin Dose 30 MG; Start 07/27/18 at 09:00 Gabapentin (Neurontin) 400 mg Q8 GTB Last administered on 08/04/18at 05:55; Admin Dose 400 MG; Start 07/27/18 at 14:00 Isosorbide Dinitrate (Isordil) 10 mg TID GTB Last administered on 08/04/18 09:39; Admin Dose 10 MG; Start 07/27/18 at 09:00 Multivitamins (Multivitamin) 30 ml DAILY GTB Last administered on 08/04/18 09:38; Admin Dose 30 ML; Start 07/27/18 at 09:00 Ondansetron HCl (Zofran Tab) 4 mg Q4H PRN GTB NAUSEA AND/OR VOMITING; Start 07/27/18 at 09:00 Senna (Senokot) 1 tab BID GTB Last administered on 08/04/18 09:39; Admin Dose 1 TAB; Start 07/27/18 at 09:00 Tramadol HCl (Ultram) 50 mg Q6H PRN GTB PAIN LEVEL 4-7; Start 07/27/18 at 09:00 Miscellaneous Information 1 ea NOTE XX ; Start 07/27/18 at 09:00 Glucose (Glutose) 15 gm Q15M PRN PO DECREASED GLUCOSE; Start 07/27/18 at 09:00 Glucose (Glutose) 22.5 gm Q15M PRN PO DECREASED GLUCOSE; Start 07/27/18 at 09:00 Dextrose (D50w Syringe) 25 ml Q15M PRN IV DECREASED GLUCOSE; Start 07/27/18 at 09:00 Dextrose (D50w Syringe) 50 ml Q15M PRN IV DECREASED GLUCOSE; Start 07/27/18 at 09:00 Glucagon (Glucagen) 1 mg Q15M PRN IM DECREASED GLUCOSE; Start 07/27/18 at 09:00 Glucose (Glutose) 15 gm Q15M PRN BUCCAL DECREASED GLUCOSE; Start 07/27/18 at 09:00 Insulin Aspart (Novolog Insulin Pen) NOVOLOG *MODERATE* ALGORI... Q6 SC Last administered on 08/04/18at 12:13; Admin Dose 4 UNIT; Start 07/31/18 at 18:00 Insulin Glargine (Lantus) 18 units BID SC Last administered on 08/04/18at 10:05; Admin Dose 18 UNITS; Start 08/02/18 at 09:00 Insulin Human NPH (Humulin N) 20 unit DAILY@0900 SC Last administered on 08/04/18at 10:06; Admin Dose 20 UNIT; Start 08/02/18 at 09:00 Alteplase, Recombinant (Cathflo (Activase)) 2 mg MAY REPEAT X1 PRN CATHETER IF CATHETER REMAINS OCCULUDED; Start 08/03/18 at 06:30 Metoprolol Tartrate (Lopressor) 5 mg Q4H PRN IV HR>110 Hold SBP<100; Start 08/03/18 at 15:30 Hydralazine HCl (Apresoline) 25 mg Q12 GTB ; Start 08/04/18 at 21:00 Metoprolol Tartrate (Lopressor) 25 mg Q12 GTB ; Start 08/04/18 at 21:00 LIDYA DC August 04, 2018 12:31
--- NOTE | 2018-08-04 13:17 | CONS ---
Consult Date/Type/Reason Admit Date/Time Jul 19, 2018 at 18:40 Initial Consult Date 07/22/18 Type of Consult Pulmonary Requesting Provider: LES TRENT Date/Time of Note DATE: 08/04/18 TIME: 13:16 Subjective Patient appears comfortable this morning no respiratory distress Objective Vital Signs Date Temp Pulse Resp B/P (MAP) Pulse Ox O2 O2 Flow FiO2 Time Delivery Rate 08/04/18 99.5 70 20 98/45 (62) 97 11:26 08/04/18 30 11:15 08/01/18 Mechanical 15:28 Ventilator Intake and Output 08/03/18 08/03/18 08/04/18 1515:00 23:00 07:00 IntakeIntake Total 1065 ml OutputOutput Total 300 ml BalanceBalance 765 ml Exam GENERAL: Elderly appearing gentleman on mechanical ventilation via tracheostomy VITAL SIGNS: per chart NECK: Supple. No JVD or lymphadenopathy. CARDIAC EXAM: S1, S2. No added sounds or murmurs. CHEST: Diminished air entry bilaterally ABDOMEN: Soft, nontender. No guarding or rebound. EXTREMITIES: No cyanosis, clubbing or edema. NEUROLOGIC: Generalized weakness. No focal deficits. Vent Setting Ventilator Support Mode: AC Fraction of Inspired Oxygen pe: 30 Positive End Expiratory Pressu: 5.0 Results/Medications Result Diagram: 08/04/18 0454 08/04/18 0454 Results 24 hrs Laboratory Tests Test 08/03/18 17:16 08/03/18 21:49 08/03/18 23:51 08/04/18 04:54 Bedside Glucose 92 106 120 White Blood Count 6.1 Red Blood Count 3.09 L Hemoglobin 8.1 L Hematocrit 26.9 L Mean Corpuscular Volume 87.1 Mean Corpuscular 26.2 L Hemoglobin Mean Corpuscular 30.1 L Hemoglobin Concent Red Cell Distribution 18.5 H Width Platelet Count 54 #L Mean Platelet Volume 11.7 H Immature Granulocytes % 0.700 H Neutrophils % 77.5 H Lymphocytes % 15.3 Monocytes % 6.0 Eosinophils % 0.3 Basophils % 0.2 Nucleated Red Blood 0.0 Cells % Immature Granulocytes # 0.040 H Neutrophils # 4.8 Lymphocytes # 0.9 Monocytes # 0.4 Eosinophils # 0.0 Basophils # 0.0 Nucleated Red Blood 0.0 Cells # Sodium Level 136 Potassium Level 3.6 Chloride Level 95 L Carbon Dioxide Level 35 H Anion Gap 6 Blood Urea Nitrogen 68 H Creatinine 0.98 Est Glomerular Filtrat > 60 Rate mL/min Glucose Level 148 Calcium Level 7.6 L Test 08/04/18 06:02 08/04/18 10:03 08/04/18 12:05 Bedside Glucose 167 161 190 Medications Current Medications IV Flush (NS 3 ml) 3 ml PER PROTOCOL IV ; Start 07/19/18 at 19:30 Ondansetron HCl (Zofran Inj) 4 mg Q6H PRN IV NAUSEA/VOMITING; Start 07/19/18 at 19:30 Morphine Sulfate (morphine) 2 mg Q4H PRN IV .PAIN 8-10 Last administered on 08/02/18at 23:49; Admin Dose 2 MG; Start 07/19/18 at 19:30 Ferrous Sulfate (Ferrous Sulfate (Ec)) 325 mg DAILY PO Last administered on 08/04/18 09:39; Admin Dose 325 MG; Start 07/20/18 at 09:00; Stop 08/19/18 at 08:59 Nitroglycerin (Nitroglycerin (Sl Tab) 0.4 Mg) 1 tab [id number] PRN SL CHEST PAIN; Start 07/19/18 at 19:30 Miscellaneous Information (Pending [facility] Order For Wound Care) This patient pedro... PRN PRN XX WOUND CARE; Start 07/20/18 at 01:30 Lorazepam (Ativan) 0.5 mg Q6 PRN IV AGITATION/ANXIETY Last administered on 07/30/18 05:31; Admin Dose 0.5 MG; Start 07/22/18 at 17:00 Lansoprazole (Prevacid) 30 mg DAILY@06 GTB Last administered on 08/04/18 05:55; Admin Dose 30 MG; Start 07/25/18 at 06:00 Acetaminophen (Tylenol Tab) 650 mg Q6H PRN GTB .PAIN 1-3 OR TEMP Last administered on 08/01/18 09:06; Admin Dose 650 MG; Start 07/27/18 at 09:00 Acetaminophen (Tylenol Tab) 650 mg Q6H PRN GTB MILD TO MODERATE PAIN; Start 07/27/18 at 09:00 Ascorbic Acid (Vitamin C) 500 mg DAILY GTB Last administered on 08/04/18 09:39; Admin Dose 500 MG; Start 07/27/18 at 09:00 Atorvastatin Calcium (Lipitor) 20 mg QHS GTB Last administered on 08/03/18 21:41; Admin Dose 20 MG; Start 07/27/18 at 21:00 Duloxetine HCl (Cymbalta) 30 mg DAILY GTB Last administered on 08/04/18 09:38; Admin Dose 30 MG; Start 07/27/18 at 09:00 Gabapentin (Neurontin) 400 mg Q8 GTB Last administered on 08/04/18 05:55; Admin Dose 400 MG; Start 07/27/18 at 14:00 Isosorbide Dinitrate (Isordil) 10 mg TID GTB Last administered on 08/04/18 09:39; Admin Dose 10 MG; Start 07/27/18 at 09:00 Multivitamins (Multivitamin) 30 ml DAILY GTB Last administered on 08/04/18 09:38; Admin Dose 30 ML; Start 07/27/18 at 09:00 Ondansetron HCl (Zofran Tab) 4 mg Q4H PRN GTB NAUSEA AND/OR VOMITING; Start 07/27/18 at 09:00 Senna (Senokot) 1 tab BID GTB Last administered on 08/04/18 09:39; Admin Dose 1 TAB; Start 07/27/18 at 09:00 Tramadol HCl (Ultram) 50 mg Q6H PRN GTB PAIN LEVEL 4-7; Start 07/27/18 at 09:00 Miscellaneous Information 1 ea NOTE XX ; Start 07/27/18 at 09:00 Glucose (Glutose) 15 gm Q15M PRN PO DECREASED GLUCOSE; Start 07/27/18 at 09:00 Glucose (Glutose) 22.5 gm Q15M PRN PO DECREASED GLUCOSE; Start 07/27/18 at 09:00 Dextrose (D50w Syringe) 25 ml Q15M PRN IV DECREASED GLUCOSE; Start 07/27/18 at 09:00 Dextrose (D50w Syringe) 50 ml Q15M PRN IV DECREASED GLUCOSE; Start 07/27/18 at 09:00 Glucagon (Glucagen) 1 mg Q15M PRN IM DECREASED GLUCOSE; Start 07/27/18 at 09:00 Glucose (Glutose) 15 gm Q15M PRN BUCCAL DECREASED GLUCOSE; Start 07/27/18 at 09:00 Insulin Aspart (Novolog Insulin Pen) NOVOLOG *MODERATE* ALGORI... Q6 SC Last administered on 08/04/18at 12:13; Admin Dose 4 UNIT; Start 07/31/18 at 18:00 Insulin Glargine (Lantus) 18 units BID SC Last administered on 08/04/18at 10:05; Admin Dose 18 UNITS; Start 08/02/18 at 09:00 Insulin Human NPH (Humulin N) 20 unit DAILY@0900 SC Last administered on 08/04/18at 10:06; Admin Dose 20 UNIT; Start 08/02/18 at 09:00 Alteplase, Recombinant (Cathflo (Activase)) 2 mg MAY REPEAT X1 PRN CATHETER IF CATHETER REMAINS OCCULUDED; Start 08/03/18 at 06:30 Metoprolol Tartrate (Lopressor) 5 mg Q4H PRN IV HR>110 Hold SBP<100; Start 08/03/18 at 15:30 Hydralazine HCl (Apresoline) 25 mg Q12 GTB ; Start 08/04/18 at 21:00 Metoprolol Tartrate (Lopressor) 25 mg Q12 GTB ; Start 08/04/18 at 21:00 Assessment/Plan Hospital Course (Demo Recall) IMP: 1. Ventilator-dependent respiratory failure 2. 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 Dysphagia with G-tube 4. Anemia 5. s/p pacer RECS: 1. Vent support 2. BDs/CPT 3. TF/Free H20 Consider [place] versus DC planning [facility] CLEMENTS [facility] August 04, 2018 13:17
--- NOTE | 2018-08-04 13:35 | CONS ---
Assessment/Plan Assessment/Plan Problems: (1) Diabetes mellitus type 2 with complications Status: Chronic Comment: We had reduce the Lantus insulin while the patient is receiving steroid timed NPH. The steroids were held yesterday but the NPH was given today. I am canceling the NPH and will keep an eye on the patient. However with the reduced dosage of the Lantus I believe will be able to not run into t rouble. I have discussed this with the nurse taking care of the patient. Qualifiers: Diabetes mellitus alf insulin use: with alf use Qualified Codes: E11.8 - Type 2 diabetes mellitus with unspecified complications; Z79.4 - halfway (current) use of insulin Consultation Date/Type/Reason Admit Date/Time Jul 19, 2018 at 18:40 Initial Consult Date 07/24/18 Type of Consult Endocrine Reason for Consultation Diabetes mellitus type 2; tube feeding; had been on steroids for thrombocytopenia, prednisone was canceled as of yesterday today was the first day without prednisone. Requesting Provider: LES TRENT Date/Time of Note DATE: 08/04/18 TIME: 13:33 24 HR Interval Summary Free Text/Dictation Patient is unable to speak but it interacts. No new complaints Detailed Summary Endocrine: no complaints Exam/Review of Systems Exam Vitals Vital Signs Date Temp Pulse Resp B/P (MAP) Pulse Ox O2 O2 Flow FiO2 Time Delivery Rate 08/04/18 83 17 98 30 13:14 08/04/18 99.5 98/45 (62) 11:26 08/01/18 Mechanical 15:28 Ventilator Intake and Output 08/03/18 08/03/18 08/04/18 1515:00 23:00 07:00 IntakeIntake Total 1065 ml OutputOutput Total 300 ml BalanceBalance 765 ml Constitutional: alert Respiratory: clear to auscultation, normal air movement Cardiovascular: regular rate and rhythm, nl pulses Results Result Diagram: 08/04/18 0454 08/04/18 0454 Results 24hrs Laboratory Tests Test 08/03/18 17:16 08/03/18 21:49 08/03/18 23:51 08/04/18 04:54 Bedside Glucose 92 106 120 White Blood Count 6.1 Red Blood Count 3.09 L Hemoglobin 8.1 L Hematocrit 26.9 L Mean Corpuscular Volume 87.1 Mean Corpuscular 26.2 L Hemoglobin Mean Corpuscular 30.1 L Hemoglobin Concent Red Cell Distribution 18.5 H Width Platelet Count 54 #L Mean Platelet Volume 11.7 H Immature Granulocytes % 0.700 H Neutrophils % 77.5 H Lymphocytes % 15.3 Monocytes % 6.0 Eosinophils % 0.3 Basophils % 0.2 Nucleated Red Blood 0.0 Cells % Immature Granulocytes # 0.040 H Neutrophils # 4.8 Lymphocytes # 0.9 Monocytes # 0.4 Eosinophils # 0.0 Basophils # 0.0 Nucleated Red Blood 0.0 Cells # Sodium Level 136 Potassium Level 3.6 Chloride Level 95 L Carbon Dioxide Level 35 H Anion Gap 6 Blood Urea Nitrogen 68 H Creatinine 0.98 Est Glomerular Filtrat > 60 Rate mL/min Glucose Level 148 Calcium Level 7.6 L Test 08/04/18 06:02 08/04/18 10:03 08/04/18 12:05 Bedside Glucose 167 161 190 Medications Medication Current Medications IV Flush (NS 3 ml) 3 ml PER PROTOCOL IV ; Start 07/19/18 at 19:30 Ondansetron HCl (Zofran Inj) 4 mg Q6H PRN IV NAUSEA/VOMITING; Start 07/19/18 at 19:30 Morphine Sulfate (morphine) 2 mg Q4H PRN IV .PAIN 8-10 Last administered on 08/02/18at 23:49; Admin Dose 2 MG; Start 07/19/18 at 19:30 Ferrous Sulfate (Ferrous Sulfate (Ec)) 325 mg DAILY PO Last administered on 08/04/18at 09:39; Admin Dose 325 MG; Start 07/20/18 at 09:00; Stop 08/19/18 at 08:59 Nitroglycerin (Nitroglycerin (Sl Tab) 0.4 Mg) 1 tab [id number] PRN SL CHEST PAIN; Start 07/19/18 at 19:30 Miscellaneous Information (Pending [facility] Order For Wound Care) This patient pedro... PRN PRN XX WOUND CARE; Start 07/20/18 at 01:30 Lorazepam (Ativan) 0.5 mg Q6 PRN IV AGITATION/ANXIETY Last administered on 07/30/18at 05:31; Admin Dose 0.5 MG; Start 07/22/18 at 17:00 Lansoprazole (Prevacid) 30 mg DAILY@06 GTB Last administered on 08/04/18 05:55; Admin Dose 30 MG; Start 07/25/18 at 06:00 Acetaminophen (Tylenol Tab) 650 mg Q6H PRN GTB .PAIN 1-3 OR TEMP Last administered on 08/01/18 09:06; Admin Dose 650 MG; Start 07/27/18 at 09:00 Acetaminophen (Tylenol Tab) 650 mg Q6H PRN GTB MILD TO MODERATE PAIN; Start 07/27/18 at 09:00 Ascorbic Acid (Vitamin C) 500 mg DAILY GTB Last administered on 08/04/18 09:39; Admin Dose 500 MG; Start 07/27/18 at 09:00 Atorvastatin Calcium (Lipitor) 20 mg QHS GTB Last administered on 08/03/18 21:41; Admin Dose 20 MG; Start 07/27/18 at 21:00 Duloxetine HCl (Cymbalta) 30 mg DAILY GTB Last administered on 08/04/18 09:38; Admin Dose 30 MG; Start 07/27/18 at 09:00 Gabapentin (Neurontin) 400 mg Q8 GTB Last administered on 08/04/18 05:55; Admin Dose 400 MG; Start 07/27/18 at 14:00 Isosorbide Dinitrate (Isordil) 10 mg TID GTB Last administered on 08/04/18 09:39; Admin Dose 10 MG; Start 07/27/18 at 09:00 Multivitamins (Multivitamin) 30 ml DAILY GTB Last administered on 08/04/18 09:38; Admin Dose 30 ML; Start 07/27/18 at 09:00 Ondansetron HCl (Zofran Tab) 4 mg Q4H PRN GTB NAUSEA AND/OR VOMITING; Start 07/27/18 at 09:00 Senna (Senokot) 1 tab BID GTB Last administered on 08/04/18 09:39; Admin Dose 1 TAB; Start 07/27/18 at 09:00 Tramadol HCl (Ultram) 50 mg Q6H PRN GTB PAIN LEVEL 4-7; Start 07/27/18 at 09:00 Miscellaneous Information 1 ea NOTE XX ; Start 07/27/18 at 09:00 Glucose (Glutose) 15 gm Q15M PRN PO DECREASED GLUCOSE; Start 07/27/18 at 09:00 Glucose (Glutose) 22.5 gm Q15M PRN PO DECREASED GLUCOSE; Start 07/27/18 at 09:00 Dextrose (D50w Syringe) 25 ml Q15M PRN IV DECREASED GLUCOSE; Start 07/27/18 at 09:00 Dextrose (D50w Syringe) 50 ml Q15M PRN IV DECREASED GLUCOSE; Start 07/27/18 at 09:00 Glucagon (Glucagen) 1 mg Q15M PRN IM DECREASED GLUCOSE; Start 07/27/18 at 09:00 Glucose (Glutose) 15 gm Q15M PRN BUCCAL DECREASED GLUCOSE; Start 07/27/18 at 09:00 Insulin Aspart (Novolog Insulin Pen) NOVOLOG *MODERATE* ALGORI... Q6 SC Last administered on 08/04/18at 12:13; Admin Dose 4 UNIT; Start 07/31/18 at 18:00 Insulin Glargine (Lantus) 18 units BID SC Last administered on 08/04/18at 10:05; Admin Dose 18 UNITS; Start 08/02/18 at 09:00 Insulin Human NPH (Humulin N) 20 unit DAILY@0900 SC Last administered on at 10:06; Admin Dose 20 UNIT; Start 08/02/18 at 09:00 Alteplase, Recombinant (Cathflo (Activase)) 2 mg MAY REPEAT X1 PRN CATHETER IF CATHETER REMAINS OCCULUDED; Start 08/03/18 at 06:30 Metoprolol Tartrate (Lopressor) 5 mg Q4H PRN IV HR>110 Hold SBP<100; Start 08/03/18 at 15:30 Hydralazine HCl (Apresoline) 25 mg Q12 GTB ; Start 08/04/18 at 21:00 Metoprolol Tartrate (Lopressor) 25 mg Q12 GTB ; Start 08/04/18 at 21:00 DORIAN ACOSTA MD August 04, 2018 13:35
[2018-08-04] MEDS: ACETAMINOPHEN 325 MG TAB GTB PRN (15:33)
--- NOTE | 2018-08-04 16:38 | CONS ---
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 plt count at 54K today, decrased prednisone to 40 mg daily, will slowly taper as long as plt stabilizes -s/p IVIG 40 grams x 2 days -if he becomes dependent on high doses of steroids or cannot be tapered, may consider rituxan or promacta or nplate Consultation Date/Type/Reason Admit Date/Time Jul 19, 2018 at 18:40 Initial Consult Date 07/22/18 Requesting Provider: LES TRENT Date/Time of Note DATE: 08/04/18 TIME: 16:35 24 HR Interval Summary Free Text/Dictation plt count increased Exam/Review of Systems Exam Vitals Vital Signs Date Temp Pulse Resp B/P (MAP) Pulse Ox O2 O2 Flow FiO2 Time Delivery Rate 08/04/18 102.4 16:27 08/04/18 84 18 98 30 15:36 08/04/18 113/47 15:20 (69) 08/01/18 [place]ica 15:28 l Ventilato r Intake and Output 08/03/18 08/03/18 08/04/18 1515:00 23:00 07:00 IntakeIntake Total 1065 ml OutputOutput Total 300 ml BalanceBalance 765 ml Constitutional: non-verbal, frail Psych: anxiety ENMT: other (trach in place) Musculoskeletal: other (bilateral amputations) Results Result Diagram: 08/04/18 0454 08/04/18 0454 Results 24hrs Laboratory Tests Test 08/03/18 17:16 08/03/18 21:49 08/03/18 23:51 08/04/18 04:54 Bedside Glucose 92 106 120 White Blood Count 6.1 Red Blood Count 3.09 L Hemoglobin 8.1 L Hematocrit 26.9 L Mean Corpuscular Volume 87.1 Mean Corpuscular 26.2 L Hemoglobin Mean Corpuscular 30.1 L Hemoglobin Concent Red Cell Distribution 18.5 H Width Platelet Count 54 #L Mean Platelet Volume 11.7 H Immature Granulocytes % 0.700 H Neutrophils % 77.5 H Lymphocytes % 15.3 Monocytes % 6.0 Eosinophils % 0.3 Basophils % 0.2 Nucleated Red Blood 0.0 Cells % Immature Granulocytes # 0.040 H Neutrophils # 4.8 Lymphocytes # 0.9 Monocytes # 0.4 Eosinophils # 0.0 Basophils # 0.0 Nucleated Red Blood 0.0 Cells # Sodium Level 136 Potassium Level 3.6 Chloride Level 95 L Carbon Dioxide Level 35 H Anion Gap 6 Blood Urea Nitrogen 68 H Creatinine 0.98 Est Glomerular Filtrat > 60 Rate mL/min Glucose Level 148 Calcium Level 7.6 L Test 08/04/18 06:02 08/04/18 10:03 08/04/18 12:05 Bedside Glucose 167 161 190 Medications Medication Current Medications IV Flush (NS 3 ml) 3 ml PER PROTOCOL IV ; Start 07/19/18 at 19:30 Ondansetron HCl (Zofran Inj) 4 mg Q6H PRN IV NAUSEA/VOMITING; Start 07/19/18 at 19:30 Morphine Sulfate (morphine) 2 mg Q4H PRN IV .PAIN 8-10 Last administered on 08/02/18at 23:49; Admin Dose 2 MG; Start 07/19/18 at 19:30 Ferrous Sulfate (Ferrous Sulfate (Ec)) 325 mg DAILY PO Last administered on 08/04/18at 09:39; Admin Dose 325 MG; Start 07/20/18 at 09:00; Stop 08/19/18 at 08:59 Nitroglycerin (Nitroglycerin (Sl Tab) 0.4 Mg) 1 tab [id number] PRN SL CHEST PAIN; Start 07/19/18 at 19:30 Misc[facility] This patient pedro... PRN PRN XX WOUND CARE; Start 07/20/18 at 01:30 Lorazepam (Ativan) 0.5 mg Q6 PRN IV AGITATION/ANXIETY Last administered on 07/30/18at 05:31; Admin Dose 0.5 MG; Start 07/22/18 at 17:00 Lansoprazole (Prevacid) 30 mg DAILY@06 GTB Last administered on 08/04/18at 05:55; Admin Dose 30 MG; Start 07/25/18 at 06:00 Acetaminophen (Tylenol Tab) 650 mg Q6H PRN GTB .PAIN 1-3 OR TEMP Last administered on 08/04/18 15:33; Admin Dose 650 MG; Start 07/27/18 at 09:00 Acetaminophen (Tylenol Tab) 650 mg Q6H PRN GTB MILD TO MODERATE PAIN; Start 07/27/18 at 09:00 Ascorbic Acid (Vitamin C) 500 mg DAILY GTB Last administered on 08/04/18 09:39; Admin Dose 500 MG; Start 07/27/18 at 09:00 Atorvastatin Calcium (Lipitor) 20 mg QHS GTB Last administered on 08/03/18 21:41; Admin Dose 20 MG; Start 07/27/18 at 21:00 Duloxetine HCl (Cymbalta) 30 mg DAILY GTB Last administered on 08/04/18 09:38; Admin Dose 30 MG; Start 07/27/18 at 09:00 Gabapentin (Neurontin) 400 mg Q8 GTB Last administered on 08/04/18 14:10; Admin Dose 400 MG; Start 07/27/18 at 14:00 Isosorbide Dinitrate (Isordil) 10 mg TID GTB Last administered on 08/04/18 15:30; Admin Dose 10 MG; Start 07/27/18 at 09:00 Multivitamins (Multivitamin) 30 ml DAILY GTB Last administered on 08/04/18 09:38; Admin Dose 30 ML; Start 07/27/18 at 09:00 Ondansetron HCl (Zofran Tab) 4 mg Q4H PRN GTB NAUSEA AND/OR VOMITING; Start 07/27/18 at 09:00 Senna (Senokot) 1 tab BID GTB Last administered on 08/04/18 09:39; Admin Dose 1 TAB; Start 07/27/18 at 09:00 Tramadol HCl (Ultram) 50 mg Q6H PRN GTB PAIN LEVEL 4-7; Start 07/27/18 at 09:00 Miscellaneous Information 1 ea NOTE XX ; Start 07/27/18 at 09:00 Glucose (Glutose) 15 gm Q15M PRN PO DECREASED GLUCOSE; Start 07/27/18 at 09:00 Glucose (Glutose) 22.5 gm Q15M PRN PO DECREASED GLUCOSE; Start 07/27/18 at 09:00 Dextrose (D50w Syringe) 25 ml Q15M PRN IV DECREASED GLUCOSE; Start 07/27/18 at 09:00 Dextrose (D50w Syringe) 50 ml Q15M PRN IV DECREASED GLUCOSE; Start 07/27/18 at 09:00 Glucagon (Glucagen) 1 mg Q15M PRN IM DECREASED GLUCOSE; Start 07/27/18 at 09:00 Glucose (Glutose) 15 gm Q15M PRN BUCCAL DECREASED GLUCOSE; Start 07/27/18 at 09:00 Insulin Aspart (Novolog Insulin Pen) NOVOLOG *MODERATE* ALGORI... Q6 SC Last administered on 08/04/18at 12:13; Admin Dose 4 UNIT; Start 07/31/18 at 18:00 Alteplase, Recombinant (Cathflo (Activase)) 2 mg MAY REPEAT X1 PRN CATHETER IF CATHETER REMAINS OCCULUDED; Start 08/03/18 at 06:30 Metoprolol Tartrate (Lopressor) 5 mg Q4H PRN IV HR>110 Hold SBP<100; Start 08/03/18 at 15:30 Hydralazine HCl (Apresoline) 25 mg Q12 GTB ; Start 08/04/18 at 21:00 Metoprolol Tartrate (Lopressor) 25 mg Q12 GTB ; Start 08/04/18 at 21:00 Insulin Glargine (Lantus) 22 units BID SC ; Start 08/04/18 at 21:00 Prednisone (Prednisone) 40 mg DAILY PO ; Start 08/05/18 at 09:00 Insulin Human NPH (Humulin N) 20 unit DAILY@08 SC ; Start 08/05/18 at 08:00 BART MONTOYA August 04, 2018 16:38
[2018-08-04] MEDS ORDERED: VANCOMYCIN IV PER PHARMACY XX SCH (17:30)
--- NOTE | 2018-08-04 18:53 | CONS ---
DATE OF ADMISSION: 07/19/2018 DATE OF CONSULTATION: 08/04/2018 REASON FOR CONSULTATION: Antibiotic management. HISTORY OF PRESENT ILLNESS: Omer Erazo is a 68-year-old male who comes in with thrombocytopenia , respiratory failure and history of coronary artery disease, according to Dr. Fofana. According to Dr Tootie , patient is admitted with tracheal bleeding and low platelet count as evidenced by past respo nse to steroids and bone marrow biopsy consistent with peripheral destruction. Past labs show a posi tive TERESE, negative HIT antibodies, platelet count of 3000. The patient was started on dexamethasone. He was given IVIG. Primary physician is Dr. Samy Inman. He is a 68-year-old male with multiple medical problems including coronary artery disease, respirator y failure, trach with history of ITP. He was noted to respond well to steroids. He was transferred to [place] after regaining his counts. Bone marrow biopsy in 09/2017 showed no obvious pathology but suggestive of peripheral platelet destruction. On his last admission, he had a positive TERESE, positiv e hepatitis C. The patient has had a prolonged hospital course. He has a history of diabetes mellit us. On the , white count was 7.1. On the , patient was seen by Dr. Chong. PAST MEDICAL HISTORY: The patient had a permanent pacemaker placement. He has a history of AV repla cement with bioprosthetic valve. He has a history of coronary bypass graft with AHUJA to LAD, history of tracheostomy and G-tube placement, 02/19/2018, in addition to his colostomy. ALLERGIES: THE PATIENT IS ALLERGIC TO: 1. PENICILLIN. 2. CIPRO. 3. GARLIC. 4. LINAGLIPTIN. 5. MORPHINE. PHYSICAL EXAMINATION: GENERAL: The patient is nonverbal, frail. VITAL SIGNS: Currently, he has a temperature of 102.4. SKIN: Without generalized rash. HEENT: Within normal limits. NECK: Trach site is clean and dry. Neck is supple. LYMPH NODES: None palpable. CHEST: With ventilator-dependent respiratory failure. Decreased breath sounds at the bases. HEART: Atrial fibrillation and flutter. ABDOMEN: Soft, nontender. The patient has a colostomy. No organosplenomegaly or masses. EXTREMITIES: Bilateral BKAs. LABORATORY DATA: Currently, white count 6.1, platelet count 54,000. BUN and creatinine 68/0.98. No cultures are done. IMAGING STUDY: Chest x-ray shows tracheostomy well positioned, left-sided single-lead pacemaker, vas cular stent over the right neck, right mid lung catheter tip overlying the axilla, diffuse airspace o pacities, small bilateral effusions, sternotomy wires, persistent extensive bilateral airspace opacit ies representing pulmonary edema, multifocal pneumonia or ARDS. IMPRESSION AND PLAN: The patient is currently on no antibiotic therapy. I will consider starting th e patient on vancomycin and meropenem. I will dictate my findings to the numerous physicians involve d in this case, including Dr. Minor, Dr. Inman, Dr. Olivares. Dictated By: JUAN ROMANO MD, JD/KRYSTAL Conf#: [id number] DID#: [id number] CC: NOE MINOR MD;*EndCC*
[2018-08-04] MEDS ORDERED: VANCOMYCIN HCL 1.75 GM in SOD CHLORIDE 0.9% 500 ML IVPB SCH (20:00)
[2018-08-04] MEDS: ATORVASTATIN 20 MG TAB GTB SCH (21:14)
[2018-08-04] MEDS: morphine 2 MG INJ IV PRN (22:09)
[2018-08-05] VITALS (24 sets, daily range): BP systolic 94–109; BP diastolic 57–73; PULSE 65–119; RESP 14–23
[2018-08-05] MEDS: MEROPENEM 1 GM/50ML(PMX) 50 ML IVPB SCH ×3 (01:30→20:57)
[2018-08-05] MEDS: ACETAMINOPHEN 325 MG TAB GTB PRN ×2 (01:31→20:57)
[2018-08-05] MEDS: morphine 2 MG INJ IV PRN (04:15)
[2018-08-05] MEDS: GABAPENTIN 400 MG CAP GTB SCH ×3 (04:15→20:57)
[2018-08-05] MEDS: LANSOPRAZOLE 30 MG CAP GTB SCH (04:15)
[2018-08-05] MEDS: INSULIN ASPART [NOVOLOG] 3 ML PEN SC SCH ×3 (06:00→17:33)
[2018-08-05] MEDS ORDERED: NPH, HUMAN INSULIN ISOPHANE 3ML VIAL SC SCH (08:00)
--- NOTE | 2018-08-05 08:47 | CONS ---
Consult Date/Type/Reason Admit Date/Time Jul 19, 2018 at 18:40 Initial Consult Date Type of Consultation: Pulm Requesting Provider: LES TRENT Date/Time of Note DATE: 08/05/18 TIME: 08:44 Subjective NO acute events - pt stable - no CP - tachy now - with fluid overload - valarie Rx accordingly. ROS: No fever, no chills, no nausea, no vomiting, no diarrhea/constipation - per nurse - chronic SOB Objective Vitals Vital Signs Date Temp Pulse Resp B/P (MAP) Pulse Ox O2 O2 Flow FiO2 Time Delivery Rate 08/05/18 98.9 91 20 95/57 (70) 96 07:23 08/05/18 30 05:12 08/01/18 Mechanical 15:28 Ventilator Intake and Output 08/04/18 08/04/18 08/05/18 1515:00 23:00 07:00 IntakeIntake Total 950 ml 1565 ml OutputOutput Total 50 ml 40 ml 70 ml BalanceBalance -50 ml 910 ml 1495 ml Exam General: WN/WD/NAD, AOx comfortbale HEENT: Unicetric/atraumatic/EOMI (does not follow commands) NECK: trach Lymph: no lymphadenopathy HEART: irregular with no S3, II/ systolic murmur at apex LUNGS: Coarse sounds ABD: soft, NT, ND, +BS : Intact Neuro: non focal SKIN: chronic changes EXT: amputated Results/Medications Result Diagram: 08/04/18 0454 08/04/18 0454 Results 24 hrs Laboratory Tests Test 08/04/18 10:03 08/04/18 12:05 08/04/18 17:44 08/04/18 18:20 Bedside Glucose 161 190 131 Urine Color POWER Urine Clarity CLOUDY A Urine pH 9.0 Urine Specific 1.013 [place] Urine Ketones NEGATIVE Urine Nitrite NEGATIVE Urine Bilirubin NEGATIVE Urine Urobilinogen NEGATIVE Urine Leukocyte 3+ H Esterase Urine Microscopic 38 H RBC Urine Microscopic > 182 H WBC Urine Bacteria FEW A Urine Hemoglobin NEGATIVE Urine Glucose NEGATIVE Urine Total Protein 2+ H Test 08/04/18 21:11 08/04/18 23:01 08/05/18 04:59 08/05/18 08:00 Bedside Glucose 107 119 126 Lab Scanned Report BLOOD TRANSFUSION Home Meds Reported Medications Tramadol HCl (Tramadol HCl) 50 Mg Tablet, 50 MG PO Q6H PRN for PAIN LEVEL 7-10, #120 TAB 06/23/18 Hydralazine Hcl* (Hydralazine Hcl*) 50 Mg Tab, 50 MG PO Q8 for hypertension, #90 TAB 06/23/18 Gabapentin* (Neurontin*) 400 Mg Capsule, 400 MG PO Q8, #90 CAP 06/23/18 Insulin Isophan/Regular (Humulin 70/30) 100 Units/Ml Susp, 18 UNIT SC Q8, EA 06/23/18 Omeprazole* (Omeprazole*) 40 Mg Capsule.dr, 40 MG PO DAILY, #30 CAP 06/23/18 Metoprolol Tartrate* (Lopressor*) 50 Mg Tab, 50 MG PO Q8, #60 TAB 06/23/18 Atorvastatin Calcium* (Atorvastatin Calcium*) 20 Mg Tablet, 20 MG PO QHS, #30 TAB 06/23/18 Ondansetron Hcl* (Ondansetron Hcl*) 4 Mg Tablet, 4 MG PO Q4H PRN for NAUSEA AND OR VOMITING, TAB 11/11/17 Budesonide-Formoterol Fumarate* (Symbicort*) 160-4.5 Hfa.aer.ad, 1 PUFF INHALATION BID, #1 EACH 11/11/17 Sennosides* (Senna Lax*) 8.6 Mg Tablet, 1 TAB PO BID, TAB 11/11/17 Multivitamins* (Theragran*) 1 Tab Tab, 1 TAB PO DAILY, TAB 11/11/17 Isosorbide Dinitrate* (Isosorbide Dinitrate*) 10 Mg Tablet, 10 MG PO TID, TAB 11/11/17 Ascorbic Acid* (Vitamin C*) 500 Mg Capsule.sa, 500 MG PO DAILY, CAP 11/11/17 Pantoprazole* (Protonix*) 40 Mg Tablet.dr, 40 MG PO AC BREAKFAST, TAB 08/07/17 Apixaban* (Eliquis*) 5 Mg Tablet, 5 MG PO BID, TAB 08/07/17 Nitroglycerin* (Nitrostat*) 0.4 Mg Tab.subl, 0.4 MG SL Q5MIN PRN for CHEST PAIN, BOTTLE 05/19/17 Duloxetine Hcl* (Cymbalta*) 30 Mg Capsule.dr, 30 MG PO DAILY, CAP 05/19/17 Acetaminophen* (Acetaminophen*) 650 Mg Tablet, 650 MG PO Q6H PRN for MILD TO MODERATE PAIN, #30 TAB 03/18/17 Alprazolam* (Alprazolam*) 0.25 Mg Tablet, 0.25 MG PO TID PRN for ANXIETY, TAB 03/18/17 Ferrous Sulfate* (Ferrous Sulfate*) 325 Mg Tabec, 325 MG PO DAILY, TAB 03/18/17 Medications Current Medications IV Flush (NS 3 ml) 3 ml PER PROTOCOL IV ; Start 07/19/18 at 19:30 Ondansetron HCl (Zofran Inj) 4 mg Q6H PRN IV NAUSEA/VOMITING; Start 07/19/18 at 19:30 Morphine Sulfate (morphine) 2 mg Q4H PRN IV .PAIN 8-10 Last administered on 08/05/18 04:15; Admin Dose 2 MG; Start 07/19/18 at 19:30 Ferrous Sulfate (Ferrous Sulfate (Ec)) 325 mg DAILY PO Last administered on 08/04/18at 09:39; Admin Dose 325 MG; Start 07/20/18 at 09:00; Stop 08/19/18 at 08:59 Nitroglycerin (Nitroglycerin (Sl Tab) 0.4 Mg) 1 tab [id number] PRN SL CHEST PAIN; Start 07/19/18 at 19:30 Miscellaneous Information (Pending [facility] Order For Wound Care) This patient pedro... PRN PRN XX WOUND CARE; Start 07/20/18 at 01:30 Lorazepam (Ativan) 0.5 mg Q6 PRN IV AGITATION/ANXIETY Last administered on 07/30/18 05:31; Admin Dose 0.5 MG; Start 07/22/18 at 17:00 Lansoprazole (Prevacid) 30 mg DAILY@06 GTB Last administered on 08/05/18 04:15; Admin Dose 30 MG; Start 07/25/18 at 06:00 Acetaminophen (Tylenol Tab) 650 mg Q6H PRN GTB .PAIN 1-3 OR TEMP Last administered on 08/05/18 01:31; Admin Dose 650 MG; Start 07/27/18 at 09:00 Acetaminophen (Tylenol Tab) 650 mg Q6H PRN GTB MILD TO MODERATE PAIN; Start 07/27/18 at 09:00 Ascorbic Acid (Vitamin C) 500 mg DAILY GTB Last administered on 08/04/18 09:39; Admin Dose 500 MG; Start 07/27/18 at 09:00 Atorvastatin Calcium (Lipitor) 20 mg QHS GTB Last administered on 08/04/18 21:1 4; Admin Dose 20 MG; Start 07/27/18 at 21:00 Duloxetine HCl (Cymbalta) 30 mg DAILY GTB Last administered on 08/04/18 09:38; Admin Dose 30 MG; Start 07/27/18 at 09:00 Gabapentin (Neurontin) 400 mg Q8 GTB Last administered on 08/05/18 04:15; Admin Dose 400 MG; Start 07/27/18 at 14:00 Isosorbide Dinitrate (Isordil) 10 mg TID GTB Last administered on 08/04/18 15:30; Admin Dose 10 MG; Start 07/27/18 at 09:00 Multivitamins (Multivitamin) 30 ml DAILY GTB Last administered on 08/04/18 09:38; Admin Dose 30 ML; Start 07/27/18 at 09:00 Ondansetron HCl (Zofran Tab) 4 mg Q4H PRN GTB NAUSEA AND/OR VOMITING; Start 07/27/18 at 09:00 Senna (Senokot) 1 tab BID GTB Last administered on 08/04/18 21:14; Admin Dose 1 TAB; Start 07/27/18 at 09:00 Tramadol HCl (Ultram) 50 mg Q6H PRN GTB PAIN LEVEL 4-7; Start 07/27/18 at 09:00 Miscellaneous Information 1 ea NOTE XX ; Start 07/27/18 at 09:00 Glucose (Glutose) 15 gm Q15M PRN PO DECREASED GLUCOSE; Start 07/27/18 at 09:00 Glucose (Glutose) 22.5 gm Q15M PRN PO DECREASED GLUCOSE; Start 07/27/18 at 09:00 Dextrose (D50w Syringe) 25 ml Q15M PRN IV DECREASED GLUCOSE; Start 07/27/18 at 09:00 Dextrose (D50w Syringe) 50 ml Q15M PRN IV DECREASED GLUCOSE; Start 07/27/18 at 09:00 Glucagon (Glucagen) 1 mg Q15M PRN IM DECREASED GLUCOSE; Start 07/27/18 at 09:00 Glucose (Glutose) 15 gm Q15M PRN BUCCAL DECREASED GLUCOSE; Start 07/27/18 at 09:00 Insulin Aspart (Novolog Insulin Pen) NOVOLOG *MODERATE* ALGORI... Q6 SC Last administered on 08/04/18at 12:13; Admin Dose 4 UNIT; Start 07/31/18 at 18:00 Alteplase, Recombinant (Cathflo (Activase)) 2 mg MAY REPEAT X1 PRN CATHETER IF CATHETER REMAINS OCCULUDED; Start 08/03/18 at 06:30 Metoprolol Tartrate (Lopressor) 5 mg Q4H PRN IV HR>110 Hold SBP<100; Start 08/03/18 at 15:30 Hydralazine HCl (Apresoline) 25 mg Q12 GTB ; Start 08/04/18 at 21:00 Metoprolol Tartrate (Lopressor) 25 mg Q12 GTB ; Start 08/04/18 at 21:00 Insulin Glargine (Lantus) 22 units BID SC Last administered on 08/04/18at 21:19; Admin Dose 22 UNITS; Start 08/04/18 at 21:00 Prednisone (Prednisone) 40 mg DAILY PO ; Start 08/05/18 at 09:00 Vancomycin HCl (Vanco Iv Per Pharmacy) VANCOMYCIN PER PHARMACY PER PROTOCOL XX ; Start 08/04/18 at 17:30 Meropenem/Sodium Chloride 50 ml @ 100 mls/hr Q12 IVPB Last administered on 08/05/18at 01:30; Admin Dose 100 MLS/HR; Start 08/04/18 at 21:00 Insulin Human NPH (Humulin N) 20 unit DAILY@0900 SC ; Start 08/05/18 at 09:00 Vancomycin/Sodium Chloride 250 ml @ 125 mls/hr Q72H IVPB ; Start 08/07/18 at 21:00 Assessment/Plan Hospital Course (Demo Recall) 1. Permanent pacemaker with proper function at this time, primarily AV pacing. No signs of dysfunction at this time - tachy now. 2. History of paroxysmal atrial fibrillation and atrial flutter, had been off anticoagulation due to severe thrombocytopenia, has been started on anticoagulation, which was stopped at this time due to severe thrombocytopenia. Off anti-coag now. Plts higher. No active bleeding now - plt improved. NO bleeding now. Now in a. fib - tachy. 3. Hypertension - well controlled. Controlled - will follow clinically. 4. Dyslipidemia. 5. History of aortic valve replacement, bioprosthesis in 06/2017- stable by exam. Stable by exam - unchaged. 6. History of coronary artery disease, status post coronary artery bypass graft surgery in 06/2017 using AHUJA to LAD. On meds. 7. 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 8. Diabetes mellitus. 9. Dysphagia, status post G-tube. On feeds - at goal. 10. Chronic respiratory failure, status post tracheostomy- con;t resp Rx. 11. CHF - add diuretic now. REGINA TOMAS MD August 05, 2018 08:47
[2018-08-05] MEDS: METOPROLOL 25 MG TAB GTB SCH ×2 (09:00→20:56)
[2018-08-05] MEDS: FERROUS SULFATE (EC) 325 MG TAB PO SCH (09:32)
[2018-08-05] MEDS: predniSONE 20 MG TAB PO SCH (09:32)
[2018-08-05] MEDS: ASCORBIC ACID 500 MG TAB GTB SCH (09:32)
[2018-08-05] MEDS: MULTIVITAMINS 30 ML CUP GTB SCH (09:32)
[2018-08-05] MEDS: DULOXETINE 30 MG CAP DR GTB SCH (09:32)
[2018-08-05] MEDS: SENNA TAB GTB SCH ×2 (09:33→20:57)
[2018-08-05] MEDS: ISOSORBIDE DINITRATE 10 MG TAB GTB SCH ×3 (09:33→20:56)
[2018-08-05] MEDS: NPH, HUMAN INSULIN ISOPHANE 3ML VIAL SC SCH (09:41)
[2018-08-05] MEDS: INSULIN GLARGINE [LANTus] (100 UNITS/ML) SYG SC SCH ×2 (09:42→21:17)
--- NOTE | 2018-08-05 12:01 | CONS ---
Assessment/Plan Assessment/Plan Assessment/Plan (Daily) 1. Uremia with BUN rising to 100, Cr normal 3. ITP 4. severe thrombocytopenia 5. accelerated HTN 6. VDRF s/p Tracheostomy 7. Dysphagia S/p G tube Plan: Continue Hydralazine 50mg PO Q8 hr and MTP 50mg pO Q 8 hr Na 136, BUN/Cr68/0.98 BP stable s/p PRBC, Hb 8/ today will follow up Consultation Date/Type/Reason Admit Date/Time Jul 19, 2018 at 18:40 Initial Consult Date 07/22/18 Type of Consult NEPHROLOGY Requesting Provider: LES TRENT Date/Time of Note DATE: 08/05/18 TIME: 12:01 Exam/Review of Systems Exam Vitals Vital Signs Date Temp Pulse Resp B/P (MAP) Pulse Ox O2 O2 Flow FiO2 Time Delivery Rate 08/05/18 99.1 92 20 109/58 93 11:42 (75) 08/05/18 30 11:13 08/01/18 Mechanical 15:28 Ventilator Intake and Output 08/04/18 08/04/18 08/05/18 1414:59 22:59 06:59 IntakeIntake Total 950 ml 1565 ml OutputOutput Total 50 ml 40 ml 70 ml BalanceBalance -50 ml 910 ml 1495 ml Results Result Diagram: 08/04/18 0454 08/04/18 0454 Results 24hrs Laboratory Tests Test 08/04/18 12:05 08/04/18 17:44 08/04/18 18:20 08/04/18 21:11 Bedside Glucose 190 131 107 Urine Color POWER Urine Clarity CLOUDY A Urine pH 9.0 Urine Specific 1.013 [place] Urine Ketones NEGATIVE Urine Nitrite NEGATIVE Urine Bilirubin NEGATIVE Urine Urobilinogen NEGATIVE Urine Leukocyte 3+ H Esterase Urine Microscopic 38 H RBC Urine Microscopic > 182 H WBC Urine Bacteria FEW A Urine Hemoglobin NEGATIVE Urine Glucose NEGATIVE Urine Total Protein 2+ H Test 08/04/18 23:01 08/05/18 04:59 08/05/18 08:00 08/05/18 09:24 Bedside Glucose 119 126 116 Lab Scanned Report BLOOD TRANSFUSION Test 08/05/18 11:41 Bedside Glucose 132 Medications Medication Current Medications IV Flush (NS 3 ml) 3 ml PER PROTOCOL IV ; Start 07/19/18 at 19:30 Ondansetron HCl (Zofran Inj) 4 mg Q6H PRN IV NAUSEA/VOMITING; Start 07/19/18 at 19:30 Morphine Sulfate (morphine) 2 mg Q4H PRN IV .PAIN 8-10 Last administered on 08/05/18 04:15; Admin Dose 2 MG; Start 07/19/18 at 19:30 Ferrous Sulfate (Ferrous Sulfate (Ec)) 325 mg DAILY PO Last administered on 08/05/18 09:32; Admin Dose 325 MG; Start 07/20/18 at 09:00; Stop 08/19/18 at 08:59 Nitroglycerin (Nitroglycerin (Sl Tab) 0.4 Mg) 1 tab [id number] PRN SL CHEST PAIN; Start 07/19/18 at 19:30 Miscellaneous Information (Pending [facility] Order For Wound Care) This patient pedro... PRN PRN XX WOUND CARE; Start 07/20/18 at 01:30 Lorazepam (Ativan) 0.5 mg Q6 PRN IV AGITATION/ANXIETY Last administered on 07/30/18 05:31; Admin Dose 0.5 MG; Start 07/22/18 at 17:00 Lansoprazole (Prevacid) 30 mg DAILY@06 GTB Last administered on 08/05/18 04:15; Admin Dose 30 MG; Start 07/25/18 at 06:00 Acetaminophen (Tylenol Tab) 650 mg Q6H PRN GTB .PAIN 1-3 OR TEMP Last administered on 08/05/18 01:31; Admin Dose 650 MG; Start 07/27/18 at 09:00 Acetaminophen (Tylenol Tab) 650 mg Q6H PRN GTB MILD TO MODERATE PAIN; Start 07/27/18 at 09:00 Ascorbic Acid (Vitamin C) 500 mg DAILY GTB Last administered on 08/05/18 09:32; Admin Dose 500 MG; Start 07/27/18 at 09:00 Atorvastatin Calcium (Lipitor) 20 mg QHS GTB Last administered on 08/04/18 21:14; Admin Dose 20 MG; Start 07/27/18 at 21:00 Duloxetine HCl (Cymbalta) 30 mg DAILY GTB Last administered on 08/05/18 09:32; Admin Dose 30 MG; Start 07/27/18 at 09:00 Gabapentin (Neurontin) 400 mg Q8 GTB Last administered on 08/05/18at 04:15; Admin Dose 400 MG; Start 07/27/18 at 14:00 Isosorbide Dinitrate (Isordil) 10 mg TID GTB Last administered on 08/05/18 09:33; Admin Dose 10 MG; Start 07/27/18 at 09:00 Multivitamins (Multivitamin) 30 ml DAILY GTB Last administered on 08/05/18at 09:32; Admin Dose 30 ML; Start 07/27/18 at 09:00 Ondansetron HCl (Zofran Tab) 4 mg Q4H PRN GTB NAUSEA AND/OR VOMITING; Start 07/27/18 at 09:00 Senna (Senokot) 1 tab BID GTB Last administered on 08/05/18at 09:33; Admin Dose 1 TAB; Start 07/27/18 at 09:00 Tramadol HCl (Ultram) 50 mg Q6H PRN GTB PAIN LEVEL 4-7; Start 07/27/18 at 09:00 Miscellaneous Information 1 ea NOTE XX ; Start 07/27/18 at 09:00 Glucose (Glutose) 15 gm Q15M PRN PO DECREASED GLUCOSE; Start 07/27/18 at 09:00 Glucose (Glutose) 22.5 gm Q15M PRN PO DECREASED GLUCOSE; Start 07/27/18 at 09:00 Dextrose (D50w Syringe) 25 ml Q15M PRN IV DECREASED GLUCOSE; Start 07/27/18 at 09:00 Dextrose (D50w Syringe) 50 ml Q15M PRN IV DECREASED GLUCOSE; Start 07/27/18 at 09:00 Glucagon (Glucagen) 1 mg Q15M PRN IM DECREASED GLUCOSE; Start 07/27/18 at 09:00 Glucose (Glutose) 15 gm Q15M PRN BUCCAL DECREASED GLUCOSE; Start 07/27/18 at 09:00 Insulin Aspart (Novolog Insulin Pen) NOVOLOG *MODERATE* ALGORI... Q6 SC Last administered on 08/04/18at 12:13; Admin Dose 4 UNIT; Start 07/31/18 at 18:00 Alteplase, Recombinant (Cathflo (Activase)) 2 mg MAY REPEAT X1 PRN CATHETER IF CATHETER REMAINS OCCULUDED; Start 08/03/18 at 06:30 Metoprolol Tartrate (Lopressor) 5 mg Q4H PRN IV HR>110 Hold SBP<100; Start 08/03/18 at 15:30 Hydralazine HCl (Apresoline) 25 mg Q12 GTB ; Start 08/04/18 at 21:00 Metoprolol Tartrate (Lopressor) 25 mg Q12 GTB ; Start 08/04/18 at 21:00 Insulin Glargine (Lantus) 22 units BID SC Last administered on 08/05/18at 09:42; Admin Dose 22 UNITS; Start 08/04/18 at 21:00 Prednisone (Prednisone) 40 mg DAILY PO Last administered on 08/05/18at 09:32; Admin Dose 40 MG; Start 08/05/18 at 09:00 Vancomycin HCl (Vanco Iv Per Pharmacy) VANCOMYCIN PER PHARMACY PER PROTOCOL XX ; Start 08/04/18 at 17:30 Meropenem/Sodium Chloride 50 ml @ 100 mls/hr Q12 IVPB Last administered on 08/05/18at 09:30; Admin Dose 100 MLS/HR; Start 08/04/18 at 21:00 Insulin Human NPH (Humulin N) 20 unit DAILY@0900 SC Last administered on 08/05/18at 09:41; Admin Dose 20 UNIT; Start 08/05/18 at 09:00 Vancomycin/Sodium Chloride 250 ml @ 125 mls/hr Q72H IVPB ; Start 08/07/18 at 21:00 Furosemide (Lasix) 20 mg BID DIURETICS IV ; Start 08/05/18 at 18:00 OCTAVIO BOX MD August 05, 2018 12:01
--- NOTE | 2018-08-05 13:11 | CONS ---
Assessment/Plan Assessment/Plan Problems: (1) Diabetes mellitus, type 2 Status: Chronic Comment: Sugar control is doing well especially with using the NPH simultaneously with the steroids and then the long-acting insulin with the tube feedings. Continue for now. Qualifiers: Diabetes mellitus terminal block assembler insulin use: with terminal block assembler use Diabetes mellitus complication status: with other specified complication Qualified Codes: E11.69 - Type 2 diabetes mellitus with other specified complication; Z79.4 - MCC (current) use of insulin Consultation Date/Type/Reason Admit Date/Time Jul 19, 2018 at 18:40 Initial Consult Date 07/24/18 Type of Consult Endocrine Reason for Consultation Diabetes mellitus type II being treated with steroids Requesting Provider: LES TRENT Date/Time of Note DATE: 08/05/18 TIME: 13:10 24 HR Interval Summary Free Text/Dictation Patient was resumed on prednisone after missing prednisone yesterday. Exam/Review of Systems Exam Vitals Vital Signs Date Temp Pulse Resp B/P (MAP) Pulse Ox O2 O2 Flow FiO2 Time Delivery Rate 08/05/18 99.1 92 20 109/58 93 11:42 (75) 08/05/18 30 11:13 08/01/18 Mechanical 15:28 Ventilator Intake and Output 08/04/18 08/04/18 08/05/18 1515:00 23:00 07:00 IntakeIntake Total 950 ml 1565 ml OutputOutput Total 50 ml 40 ml 70 ml BalanceBalance -50 ml 910 ml 1495 ml Exam No change in exam Results Result Diagram: 08/04/18 0454 08/04/18 0454 Results 24hrs Laboratory Tests Test 08/04/18 17:44 08/04/18 18:20 08/04/18 21:11 08/04/18 23:01 Bedside Glucose 131 107 119 Urine Color POWER Urine Clarity CLOUDY A Urine pH 9.0 Urine Specific 1.013 [place] Urine Ketones NEGATIVE Urine Nitrite NEGATIVE Urine Bilirubin NEGATIVE Urine Urobilinogen NEGATIVE Urine Leukocyte 3+ H Esterase Urine Microscopic 38 H RBC Urine Microscopic > 182 H WBC Urine Bacteria FEW A Urine Hemoglobin NEGATIVE Urine Glucose NEGATIVE Urine Total Protein 2+ H Test 08/05/18 04:59 08/05/18 08:00 08/05/18 09:24 08/05/18 11:41 Bedside Glucose 126 116 132 Lab Scanned Report BLOOD TRANSFUSION Medications Medication Current Medications IV Flush (NS 3 ml) 3 ml PER PROTOCOL IV ; Start 07/19/18 at 19:30 Ondansetron HCl (Zofran Inj) 4 mg Q6H PRN IV NAUSEA/VOMITING; Start 07/19/18 at 19:30 Morphine Sulfate (morphine) 2 mg Q4H PRN IV .PAIN 8-10 Last administered on 08/05/18 04:15; Admin Dose 2 MG; Start 07/19/18 at 19:30 Ferrous Sulfate (Ferrous Sulfate (Ec)) 325 mg DAILY PO Last administered on 08/05/18 09:32; Admin Dose 325 MG; Start 07/20/18 at 09:00; Stop 08/19/18 at 08:59 Nitroglycerin (Nitroglycerin (Sl Tab) 0.4 Mg) 1 tab [id number] PRN SL CHEST PAIN; Start 07/19/18 at 19:30 Miscellaneous Information (Pending Santyl Order For Wound Care) This patient pedro... PRN PRN XX WOUND CARE; Start 07/20/18 at 01:30 Lorazepam (Ativan) 0.5 mg Q6 PRN IV AGITATION/ANXIETY Last administered on 07/30/18 05:31; Admin Dose 0.5 MG; Start 07/22/18 at 17:00 Lansoprazole (Prevacid) 30 mg DAILY@06 GTB Last administered on 08/05/18 04:15; Admin Dose 30 MG; Start 07/25/18 at 06:00 Acetaminophen (Tylenol Tab) 650 mg Q6H PRN GTB .PAIN 1-3 OR TEMP Last administered on 08/05/18 01:31; Admin Dose 650 MG; Start 07/27/18 at 09:00 Acetaminophen (Tylenol Tab) 650 mg Q6H PRN GTB MILD TO MODERATE PAIN; Start 07/27/18 at 09:00 Ascorbic Acid (Vitamin C) 500 mg DAILY GTB Last administered on 08/05/18 09:32; Admin Dose 500 MG; Start 07/27/18 at 09:00 Atorvastatin Calcium (Lipitor) 20 mg QHS GTB Last administered on 08/04/18 21:14; Admin Dose 20 MG; Start 07/27/18 at 21:00 Duloxetine HCl (Cymbalta) 30 mg DAILY GTB Last administered on 08/05/18 09:32; Admin Dose 30 MG; Start 07/27/18 at 09:00 Gabapentin (Neurontin) 400 mg Q8 GTB Last administered on 08/05/18at 04:15; Admin Dose 400 MG; Start 07/27/18 at 14:00 Isosorbide Dinitrate (Isordil) 10 mg TID GTB Last administered on 08/05/18 09:33; Admin Dose 10 MG; Start 07/27/18 at 09:00 Multivitamins (Multivitamin) 30 ml DAILY GTB Last administered on 08/05/18 09:32; Admin Dose 30 ML; Start 07/27/18 at 09:00 Ondansetron HCl (Zofran Tab) 4 mg Q4H PRN GTB NAUSEA AND/OR VOMITING; Start 07/27/18 at 09:00 Senna (Senokot) 1 tab BID GTB Last administered on 08/05/18 09:33; Admin Dose 1 TAB; Start 07/27/18 at 09:00 Tramadol HCl (Ultram) 50 mg Q6H PRN GTB PAIN LEVEL 4-7; Start 07/27/18 at 09:00 Miscellaneous Information 1 ea NOTE XX ; Start 07/27/18 at 09:00 Glucose (Glutose) 15 gm Q15M PRN PO DECREASED GLUCOSE; Start 07/27/18 at 09:00 Glucose (Glutose) 22.5 gm Q15M PRN PO DECREASED GLUCOSE; Start 07/27/18 at 09:00 Dextrose (D50w Syringe) 25 ml Q15M PRN IV DECREASED GLUCOSE; Start 07/27/18 at 09:00 Dextrose (D50w Syringe) 50 ml Q15M PRN IV DECREASED GLUCOSE; Start 07/27/18 at 09:00 Glucagon (Glucagen) 1 mg Q15M PRN IM DECREASED GLUCOSE; Start 07/27/18 at 09:00 Glucose (Glutose) 15 gm Q15M PRN BUCCAL DECREASED GLUCOSE; Start 07/27/18 at 09:00 Insulin Aspart (Novolog Insulin Pen) NOVOLOG *MODERATE* ALGORI... Q6 SC Last administered on 08/04/18at 12:13; Admin Dose 4 UNIT; Start 07/31/18 at 18:00 Alteplase, Recombinant (Cathflo (Activase)) 2 mg MAY REPEAT X1 PRN CATHETER IF CATHETER REMAINS OCCULUDED; Start 08/03/18 at 06:30 Metoprolol Tartrate (Lopressor) 5 mg Q4H PRN IV HR>110 Hold SBP<100; Start 08/03/18 at 15:30 Hydralazine HCl (Apresoline) 25 mg Q12 GTB ; Start 08/04/18 at 21:00 Metoprolol Tartrate (Lopressor) 25 mg Q12 GTB ; Start 08/04/18 at 21:00 Insulin Glargine (Lantus) 22 units BID SC Last administered on 08/05/18at 09:42; Admin Dose 22 UNITS; Start 08/04/18 at 21:00 Prednisone (Prednisone) 40 mg DAILY PO Last administered on 08/05/18at 09:32; Admin Dose 40 MG; Start 08/05/18 at 09:00 Vancomycin HCl (Vanco Iv Per Pharmacy) VANCOMYCIN PER PHARMACY PER PROTOCOL XX ; Start 08/04/18 at 17:30 Meropenem/Sodium Chloride 50 ml @ 100 mls/hr Q12 IVPB Last administered on 08/05/18at 09:30; Admin Dose 100 MLS/HR; Start 08/04/18 at 21:00 Insulin Human NPH (Humulin N) 20 unit DAILY@0900 SC Last administered on at 09:41; Admin Dose 20 UNIT; Start 08/05/18 at 09:00 Vancomycin/Sodium Chloride 250 ml @ 125 mls/hr Q72H IVPB ; Start 08/07/18 at 21:00 Furosemide (Lasix) 20 mg BID DIURETICS IV ; Start 08/05/18 at 18:00 DORIAN ACOSTA MD August 05, 2018 13:11
--- NOTE | 2018-08-05 13:31 | CONS ---
Assessment/Plan Assessment/Plan Hospital Course (Demo Recall) #ITP -platelets ok, > 50K today -diagnosed during the last admission, he had response to steroids and bone marrow bx consistent with peripheral destruction -past labs reveal + TERESE, negative HIT ab -given his platelet count of only 3K , he was started on Dexamethasone 40mg IV x 4 days to be followed by a slow prednisone steroid taper, as dex completed transitioned to Prednisone 1mg/kg daily with slow taper. continue steroid taper -has been given IVIG 40 grams x 2 days -if patient does not respond will need to consider a course of Rituxan therapy, or other tx such as promacta or n plate Consultation Date/Type/Reason Admit Date/Time Jul 19, 2018 at 18:40 Initial Consult Date 07/24/18 Type of Consult hematology Reason for Consultation thrombocytopenia Requesting Provider: LES TRENT Date/Time of Note DATE: 08/05/18 TIME: 13:29 24 HR Interval Summary Free Text/Dictation no acute overnight events. no bleeding. platelets are rising Exam/Review of Systems Exam Vitals Vital Signs Date Temp Pulse Resp B/P (MAP) Pulse Ox O2 O2 Flow FiO2 Time Delivery Rate 08/05/18 99.1 92 20 109/58 93 11:42 (75) 08/05/18 30 11:13 08/01/18 Mechanical 15:28 Ventilator Intake and Output 08/04/18 08/04/18 08/05/18 1515:00 23:00 07:00 IntakeIntake Total 950 ml 1565 ml OutputOutput Total 50 ml 40 ml 70 ml BalanceBalance -50 ml 910 ml 1495 ml Constitutional: non-verbal Psych: confusion Head: normocephalic Eyes: nl conjunctiva Neck: other (trach) Respiratory: clear to auscultation Cardiovascular: regular rate and rhythm Gastrointestinal: soft Musculoskeletal: nl extremities to inspection Extremities: normal pulses Results Result Diagram: 08/04/18 0454 08/04/18 0454 Results 24hrs Laboratory Tests Test 08/04/18 17:44 08/04/18 18:20 08/04/18 21:11 08/04/18 23:01 Bedside Glucose 131 107 119 Urine Color POWER Urine Clarity CLOUDY A Urine pH 9.0 Urine Specific 1.013 [place] Urine Ketones NEGATIVE Urine Nitrite NEGATIVE Urine Bilirubin NEGATIVE Urine Urobilinogen NEGATIVE Urine Leukocyte 3+ H Esterase Urine Microscopic 38 H RBC Urine Microscopic > 182 H WBC Urine Bacteria FEW A Urine Hemoglobin NEGATIVE Urine Glucose NEGATIVE Urine Total Protein 2+ H Test 08/05/18 04:59 08/05/18 08:00 08/05/18 09:24 08/05/18 11:41 Bedside Glucose 126 116 132 Lab Scanned Report BLOOD TRANSFUSION Medications Medication Current Medications IV Flush (NS 3 ml) 3 ml PER PROTOCOL IV ; Start 07/19/18 at 19:30 Ondansetron HCl (Zofran Inj) 4 mg Q6H PRN IV NAUSEA/VOMITING; Start 07/19/18 at 19:30 Morphine Sulfate (morphine) 2 mg Q4H PRN IV .PAIN 8-10 Last administered on 08/05/18 04:15; Admin Dose 2 MG; Start 07/19/18 at 19:30 Ferrous Sulfate (Ferrous Sulfate (Ec)) 325 mg DAILY PO Last administered on 08/05/18 09:32; Admin Dose 325 MG; Start 07/20/18 at 09:00; Stop 08/19/18 at 08:59 Nitroglycerin (Nitroglycerin (Sl Tab) 0.4 Mg) 1 tab [id number] PRN SL CHEST PAIN; Start 07/19/18 at 19:30 Miscellaneous Information (Pending [facility] Order For Wound Care) This patient pedro... PRN PRN XX WOUND CARE; Start 07/20/18 at 01:30 Lorazepam (Ativan) 0.5 mg Q6 PRN IV AGITATION/ANXIETY Last administered on 07/30/18 05:31; Admin Dose 0.5 MG; Start 07/22/18 at 17:00 Lansoprazole (Prevacid) 30 mg DAILY@06 GTB Last administered on 08/05/18 04:15; Admin Dose 30 MG; Start 07/25/18 at 06:00 Acetaminophen (Tylenol Tab) 650 mg Q6H PRN GTB .PAIN 1-3 OR TEMP Last administered on 08/05/18 01:31; Admin Dose 650 MG; Start 07/27/18 at 09:00 Acetaminophen (Tylenol Tab) 650 mg Q6H PRN GTB MILD TO MODERATE PAIN; Start 07/27/18 at 09:00 Ascorbic Acid (Vitamin C) 500 mg DAILY GTB Last administered on 08/05/18 09:32; Admin Dose 500 MG; Start 07/27/18 at 09:00 Atorvastatin Calcium (Lipitor) 20 mg QHS GTB Last administered on 08/04/18 21:14; Admin Dose 20 MG; Start 07/27/18 at 21:00 Duloxetine HCl (Cymbalta) 30 mg DAILY GTB Last administered on 08/05/18 09:32; Admin Dose 30 MG; Start 07/27/18 at 09:00 Gabapentin (Neurontin) 400 mg Q8 GTB Last administered on 08/05/18 04:15; Admin Dose 400 MG; Start 07/27/18 at 14:00 Isosorbide Dinitrate (Isordil) 10 mg TID GTB Last administered on 08/05/18 09:33; Admin Dose 10 MG; Start 07/27/18 at 09:00 Multivitamins (Multivitamin) 30 ml DAILY GTB Last administered on 08/05/18 09:32; Admin Dose 30 ML; Start 07/27/18 at 09:00 Ondansetron HCl (Zofran Tab) 4 mg Q4H PRN GTB NAUSEA AND/OR VOMITING; Start 07/27/18 at 09:00 Senna (Senokot) 1 tab BID GTB Last administered on 08/05/18 09:33; Admin Dose 1 TAB; Start 07/27/18 at 09:00 Tramadol HCl (Ultram) 50 mg Q6H PRN GTB PAIN LEVEL 4-7; Start 07/27/18 at 09:00 Miscellaneous Information 1 ea NOTE XX ; Start 07/27/18 at 09:00 Glucose (Glutose) 15 gm Q15M PRN PO DECREASED GLUCOSE; Start 07/27/18 at 09:00 Glucose (Glutose) 22.5 gm Q15M PRN PO DECREASED GLUCOSE; Start 07/27/18 at 09:00 Dextrose (D50w Syringe) 25 ml Q15M PRN IV DECREASED GLUCOSE; Start 07/27/18 at 09:00 Dextrose (D50w Syringe) 50 ml Q15M PRN IV DECREASED GLUCOSE; Start 07/27/18 at 09:00 Glucagon (Glucagen) 1 mg Q15M PRN IM DECREASED GLUCOSE; Start 07/27/18 at 09:00 Glucose (Glutose) 15 gm Q15M PRN BUCCAL DECREASED GLUCOSE; Start 07/27/18 at 09:00 Insulin Aspart (Novolog Insulin Pen) NOVOLOG *MODERATE* ALGORI... Q6 SC Last administered on 08/04/18at 12:13; Admin Dose 4 UNIT; Start 07/31/18 at 18:00 Alteplase, Recombinant (Cathflo (Activase)) 2 mg MAY REPEAT X1 PRN CATHETER IF CATHETER REMAINS OCCULUDED; Start 08/03/18 at 06:30 Metoprolol Tartrate (Lopressor) 5 mg Q4H PRN IV HR>110 Hold SBP<100; Start 08/03/18 at 15:30 Hydralazine HCl (Apresoline) 25 mg Q12 GTB ; Start 08/04/18 at 21:00 Metoprolol Tartrate (Lopressor) 25 mg Q12 GTB ; Start 08/04/18 at 21:00 Insulin Glargine (Lantus) 22 units BID SC Last administered on 08/05/18at 09:42; Admin Dose 22 UNITS; Start 08/04/18 at 21:00 Prednisone (Prednisone) 40 mg DAILY PO Last administered on 08/05/18at 09:32; Admin Dose 40 MG; Start 08/05/18 at 09:00 Vancomycin HCl (Vanco Iv Per Pharmacy) VANCOMYCIN PER PHARMACY PER PROTOCOL XX ; Start 08/04/18 at 17:30 Meropenem/Sodium Chloride 50 ml @ 100 mls/hr Q12 IVPB Last administered on 08/05/18at 09:30; Admin Dose 100 MLS/HR; Start 08/04/18 at 21:00 Insulin Human NPH (Humulin N) 20 unit DAILY@0900 SC Last administered on 08/05/18at 09:41; Admin Dose 20 UNIT; Start 08/05/18 at 09:00 Vancomycin/Sodium Chloride 250 ml @ 125 mls/hr Q72H IVPB ; Start 08/07/18 at 21:00 Furosemide (Lasix) 20 mg BID DIURETICS IV ; Start 08/05/18 at 18:00 DANIELA RAPP M.D. August 05, 2018 13:31
--- NOTE | 2018-08-05 14:00 | CONS ---
Consult Date/Type/Reason Admit Date/Time Jul 19, 2018 at 18:40 Initial Consult Date 07/22/18 Type of Consult Pulmonary Requesting Provider: LES TRENT Date/Time of Note DATE: 08/05/18 TIME: 13:59 Subjective Patient stable on mechanical ventilation this morning. Objective Vital Signs Date Temp Pulse Resp B/P (MAP) Pulse Ox O2 O2 Flow FiO2 Time Delivery Rate 08/05/18 93 23 100 30 13:25 08/05/18 99.1 109/58 11:42 (75) 08/01/18 Mechanical 15:28 Ventilator Intake and Output 08/04/18 08/04/18 08/05/18 1515:00 23:00 07:00 IntakeIntake Total 950 ml 1565 ml OutputOutput Total 50 ml 40 ml 70 ml BalanceBalance -50 ml 910 ml 1495 ml Exam GENERAL: Elderly appearing gentleman on mechanical ventilation via tracheostomy VITAL SIGNS: per chart NECK: Supple. No JVD or lymphadenopathy. CARDIAC EXAM: S1, S2. No added sounds or murmurs. CHEST: Diminished air entry bilaterally ABDOMEN: Soft, nontender. No guarding or rebound. EXTREMITIES: No cyanosis, clubbing or edema. NEUROLOGIC: Generalized weakness. No focal deficits. Vent Setting Ventilator Support Mode: AC Fraction of Inspired Oxygen pe: 30 Positive End Expiratory Pressu: 6.0 Results/Medications Result Diagram: 08/04/18 0454 08/04/18 0454 Results 24 hrs Laboratory Tests Test 08/04/18 17:44 08/04/18 18:20 08/04/18 21:11 08/04/18 23:01 Bedside Glucose 131 107 119 Urine Color POWER Urine Clarity CLOUDY A Urine pH 9.0 Urine Specific 1.013 [place] Urine Ketones NEGATIVE Urine Nitrite NEGATIVE Urine Bilirubin NEGATIVE Urine Urobilinogen NEGATIVE Urine Leukocyte 3+ H Esterase Urine Microscopic 38 H RBC Urine Microscopic > 182 H WBC Urine Bacteria FEW A Urine Hemoglobin NEGATIVE Urine Glucose NEGATIVE Urine Total Protein 2+ H Test 08/05/18 04:59 08/05/18 08:00 08/05/18 09:24 08/05/18 11:41 Bedside Glucose 126 116 132 Lab Scanned Report BLOOD TRANSFUSION Medications Current Medications IV Flush (NS 3 ml) 3 ml PER PROTOCOL IV ; Start 07/19/18 at 19:30 Ondansetron HCl (Zofran Inj) 4 mg Q6H PRN IV NAUSEA/VOMITING; Start 07/19/18 at 19:30 Morphine Sulfate (morphine) 2 mg Q4H PRN IV .PAIN 8-10 Last administered on 08/05/18 04:15; Admin Dose 2 MG; Start 07/19/18 at 19:30 Ferrous Sulfate (Ferrous Sulfate (Ec)) 325 mg DAILY PO Last administered on 08/05/18 09:32; Admin Dose 325 MG; Start 07/20/18 at 09:00; Stop 08/19/18 at 08:59 Nitroglycerin (Nitroglycerin (Sl Tab) 0.4 Mg) 1 tab [id number] PRN SL CHEST PAIN; Start 07/19/18 at 19:30 Miscellaneous Information (Pending Santyl Order For Wound Care) This patient pedro... PRN PRN XX WOUND CARE; Start 07/20/18 at 01:30 Lorazepam (Ativan) 0.5 mg Q6 PRN IV AGITATION/ANXIETY Last administered on 07/30/18 05:31; Admin Dose 0.5 MG; Start 07/22/18 at 17:00 Lansoprazole (Prevacid) 30 mg DAILY@06 GTB Last administered on 08/05/18 04:15; Admin Dose 30 MG; Start 07/25/18 at 06:00 Acetaminophen (Tylenol Tab) 650 mg Q6H PRN GTB .PAIN 1-3 OR TEMP Last administered on 08/05/18 01:31; Admin Dose 650 MG; Start 07/27/18 at 09:00 Acetaminophen (Tylenol Tab) 650 mg Q6H PRN GTB MILD TO MODERATE PAIN; Start 07/27/18 at 09:00 Ascorbic Acid (Vitamin C) 500 mg DAILY GTB Last administered on 08/05/18 09:32; Admin Dose 500 MG; Start 07/27/18 at 09:00 Atorvastatin Calcium (Lipitor) 20 mg QHS GTB Last administered on 08/04/18 21:14; Admin Dose 20 MG; Start 07/27/18 at 21:00 Duloxetine HCl (Cymbalta) 30 mg DAILY GTB Last administered on 08/05/18 09:32; Admin Dose 30 MG; Start 07/27/18 at 09:00 Gabapentin (Neurontin) 400 mg Q8 GTB Last administered on 08/05/18 13:30; Admin Dose 400 MG; Start 07/27/18 at 14:00 Isosorbide Dinitrate (Isordil) 10 mg TID GTB Last administered on 08/05/18at 13:30; Admin Dose 10 MG; Start 07/27/18 at 09:00 Multivitamins (Multivitamin) 30 ml DAILY GTB Last administered on 08/05/18at 09:32; Admin Dose 30 ML; Start 07/27/18 at 09:00 Ondansetron HCl (Zofran Tab) 4 mg Q4H PRN GTB NAUSEA AND/OR VOMITING; Start 07/27/18 at 09:00 Senna (Senokot) 1 tab BID GTB Last administered on 08/05/18at 09:33; Admin Dose 1 TAB; Start 07/27/18 at 09:00 Tramadol HCl (Ultram) 50 mg Q6H PRN GTB PAIN LEVEL 4-7; Start 07/27/18 at 09:00 Miscellaneous Information 1 ea NOTE XX ; Start 07/27/18 at 09:00 Glucose (Glutose) 15 gm Q15M PRN PO DECREASED GLUCOSE; Start 07/27/18 at 09:00 Glucose (Glutose) 22.5 gm Q15M PRN PO DECREASED GLUCOSE; Start 07/27/18 at 09:00 Dextrose (D50w Syringe) 25 ml Q15M PRN IV DECREASED GLUCOSE; Start 07/27/18 at 09:00 Dextrose (D50w Syringe) 50 ml Q15M PRN IV DECREASED GLUCOSE; Start 07/27/18 at 09:00 Glucagon (Glucagen) 1 mg Q15M PRN IM DECREASED GLUCOSE; Start 07/27/18 at 09:00 Glucose (Glutose) 15 gm Q15M PRN BUCCAL DECREASED GLUCOSE; Start 07/27/18 at 09:00 Insulin Aspart (Novolog Insulin Pen) NOVOLOG *MODERATE* ALGORI... Q6 SC Last administered on 08/04/18at 12:13; Admin Dose 4 UNIT; Start 07/31/18 at 18:00 Alteplase, Recombinant (Cathflo (Activase)) 2 mg MAY REPEAT X1 PRN CATHETER IF CATHETER REMAINS OCCULUDED; Start 08/03/18 at 06:30 Metoprolol Tartrate (Lopressor) 5 mg Q4H PRN IV HR>110 Hold SBP<100; Start 08/03/18 at 15:30 Hydralazine HCl (Apresoline) 25 mg Q12 GTB ; Start 08/04/18 at 21:00 Metoprolol Tartrate (Lopressor) 25 mg Q12 GTB ; Start 08/04/18 at 21:00 Insulin Glargine (Lantus) 22 units BID SC Last administered on 08/05/18at 09:42; Admin Dose 22 UNITS; Start 08/04/18 at 21:00 Prednisone (Prednisone) 40 mg DAILY PO Last administered on 08/05/18at 09:32; Admin Dose 40 MG; Start 08/05/18 at 09:00 Vancomycin HCl (Vanco Iv Per Pharmacy) VANCOMYCIN PER PHARMACY PER PROTOCOL XX ; Start 08/04/18 at 17:30 Meropenem/Sodium Chloride 50 ml @ 100 mls/hr Q12 IVPB Last administered on 08/05/18at 09:30; Admin Dose 100 MLS/HR; Start 08/04/18 at 21:00 Insulin Human NPH (Humulin N) 20 unit DAILY@0900 SC Last administered on 08/05/18at 09:41; Admin Dose 20 UNIT; Start 08/05/18 at 09:00 Vancomycin/Sodium Chloride 250 ml @ 125 mls/hr Q72H IVPB ; Start 08/07/18 at 21:00 Furosemide (Lasix) 20 mg BID DIURETICS IV ; Start 08/05/18 at 18:00 Assessment/Plan Hospital Course (Demo Recall) IMP: 1. Ventilator-dependent respiratory failure 2. 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 Dysphagia with G-tube 4. Anemia 5. s/p pacer RECS: 1. Vent support 2. BDs/CPT 3. TF/Free H20 Consider [place] versus DC planning AMOS CLEMENTS MD, [facility] August 05, 2018 14:00
--- NOTE | 2018-08-05 14:17 | CONS ---
Assessment/Plan Assessment/Plan Hospital Course (Demo Recall) Patient is noncommunicative in no distress he is afebrile T-max last night 102.4. WBC 6.1 yesterday no labs this morning Indwelling: Trach pack colostomy right upper extremity PICC line, unknown time of placement Chest x-ray 2 days ago revealed persistent extensive bilateral airspace opacit ies Antimicrobials: Vancomycin, meropenem Allergy: Penicillin Cipro Physical examination: This is a morbidly obese well-developed chronically ill- appearing elderly man who is lethargic in no distress. Head atraumatic normocephalic neck is supple chest rise symmetrical breath sounds diminished ba ses. Heart: S1-S2. Abdomen obese soft bowel sounds hypoactive. Extremities with bilateral edema, bilateral left below-knee amputation Assessment: 1. New onset of fevers possibly nosocomial sepsis, rule out infected PICC line 2. Chronic respiratory failure and dysphagia 3. Anemia and thrombocytopenia 4. History of MRSA bacteremia 5. History of urinary tract infection 6. Coronary artery disease status post CABG and permanent pacemaker placement 7. Morbid obesity Plan: Patient is stable, on appropriate antibiotic regimen, pending blood cultures, consider discontinue PICC line, consider urine culture and sent stool for C. difficile Consultation Date/Type/Reason Admit Date/Time Jul 19, 2018 at 18:40 Initial Consult Date 07/24/18 Type of Consult id Requesting Provider: LES TRENT Date/Time of Note DATE: 08/05/18 TIME: 14:17 Exam/Review of Systems Exam Vitals Vital Signs Date Temp Pulse Resp B/P (MAP) Pulse Ox O2 O2 Flow FiO2 Time Delivery Rate 08/05/18 93 23 100 30 13:25 08/05/18 99.1 109/58 11:42 (75) 08/01/18 Mechanical 15:28 Ventilator Intake and Output 08/04/18 08/04/18 08/05/18 1515:00 23:00 07:00 IntakeIntake Total 950 ml 1565 ml OutputOutput Total 50 ml 40 ml 70 ml BalanceBalance -50 ml 910 ml 1495 ml Results Result Diagram: 08/04/18 0454 08/04/18 0454 Results 24hrs Laboratory Tests Test 08/04/18 17:44 08/04/18 18:20 08/04/18 21:11 08/04/18 23:01 Bedside Glucose 131 107 119 Urine Color POWER Urine Clarity CLOUDY A Urine pH 9.0 Urine Specific 1.013 [place] Urine Ketones NEGATIVE Urine Nitrite NEGATIVE Urine Bilirubin NEGATIVE Urine Urobilinogen NEGATIVE Urine Leukocyte 3+ H Esterase Urine Microscopic 38 H RBC Urine Microscopic > 182 H WBC Urine Bacteria FEW A Urine Hemoglobin NEGATIVE Urine Glucose NEGATIVE Urine Total Protein 2+ H Test 08/05/18 04:59 08/05/18 08:00 08/05/18 09:24 08/05/18 11:41 Bedside Glucose 126 116 132 Lab Scanned Report BLOOD TRANSFUSION Medications Medication Current Medications IV Flush (NS 3 ml) 3 ml PER PROTOCOL IV ; Start 07/19/18 at 19:30 Ondansetron HCl (Zofran Inj) 4 mg Q6H PRN IV NAUSEA/VOMITING; Start 07/19/18 at 19:30 Morphine Sulfate (morphine) 2 mg Q4H PRN IV .PAIN 8-10 Last administered on 08/05/18 04:15; Admin Dose 2 MG; Start 07/19/18 at 19:30 Ferrous Sulfate (Ferrous Sulfate (Ec)) 325 mg DAILY PO Last administered on 08/05/18 09:32; Admin Dose 325 MG; Start 07/20/18 at 09:00; Stop 08/19/18 at 08:59 Nitroglycerin (Nitroglycerin (Sl Tab) 0.4 Mg) 1 tab [id number] PRN SL CHEST PAIN; Start 07/19/18 at 19:30 Miscellaneous Information (Pending Santyl Order For Wound Care) This patient pedro... PRN PRN XX WOUND CARE; Start 07/20/18 at 01:30 Lorazepam (Ativan) 0.5 mg Q6 PRN IV AGITATION/ANXIETY Last administered on 07/30/18 05:31; Admin Dose 0.5 MG; Start 07/22/18 at 17:00 Lansoprazole (Prevacid) 30 mg DAILY@06 GTB Last administered on 08/05/18 04:15; Admin Dose 30 MG; Start 07/25/18 at 06:00 Acetaminophen (Tylenol Tab) 650 mg Q6H PRN GTB .PAIN 1-3 OR TEMP Last administered on 08/05/18 01:31; Admin Dose 650 MG; Start 07/27/18 at 09:00 Acetaminophen (Tylenol Tab) 650 mg Q6H PRN GTB MILD TO MODERATE PAIN; Start 07/27/18 at 09:00 Ascorbic Acid (Vitamin C) 500 mg DAILY GTB Last administered on 08/05/18 09:32; Admin Dose 500 MG; Start 07/27/18 at 09:00 Atorvastatin Calcium (Lipitor) 20 mg QHS GTB Last administered on 08/04/18 21:14; Admin Dose 20 MG; Start 07/27/18 at 21:00 Duloxetine HCl (Cymbalta) 30 mg DAILY GTB Last administered on 08/05/18 09:32; Admin Dose 30 MG; Start 07/27/18 at 09:00 Gabapentin (Neurontin) 400 mg Q8 GTB Last administered on 08/05/18 13:30; Admin Dose 400 MG; Start 07/27/18 at 14:00 Isosorbide Dinitrate (Isordil) 10 mg TID GTB Last administered on 08/05/18 13:30; Admin Dose 10 MG; Start 07/27/18 at 09:00 Multivitamins (Multivitamin) 30 ml DAILY GTB Last administered on 08/05/18 09:32; Admin Dose 30 ML; Start 07/27/18 at 09:00 Ondansetron HCl (Zofran Tab) 4 mg Q4H PRN GTB NAUSEA AND/OR VOMITING; Start 07/27/18 at 09:00 Senna (Senokot) 1 tab BID GTB Last administered on 08/05/18 09:33; Admin Dose 1 TAB; Start 07/27/18 at 09:00 Tramadol HCl (Ultram) 50 mg Q6H PRN GTB PAIN LEVEL 4-7; Start 07/27/18 at 09:00 Miscellaneous Information 1 ea NOTE XX ; Start 07/27/18 at 09:00 Glucose (Glutose) 15 gm Q15M PRN PO DECREASED GLUCOSE; Start 07/27/18 at 09:00 Glucose (Glutose) 22.5 gm Q15M PRN PO DECREASED GLUCOSE; Start 07/27/18 at 09:00 Dextrose (D50w Syringe) 25 ml Q15M PRN IV DECREASED GLUCOSE; Start 07/27/18 at 09:00 Dextrose (D50w Syringe) 50 ml Q15M PRN IV DECREASED GLUCOSE; Start 07/27/18 at 09:00 Glucagon (Glucagen) 1 mg Q15M PRN IM DECREASED GLUCOSE; Start 07/27/18 at 09:00 Glucose (Glutose) 15 gm Q15M PRN BUCCAL DECREASED GLUCOSE; Start 07/27/18 at 09:00 Insulin Aspart (Novolog Insulin Pen) NOVOLOG *MODERATE* ALGORI... Q6 SC Last administered on 08/04/18at 12:13; Admin Dose 4 UNIT; Start 07/31/18 at 18:00 Alteplase, Recombinant (Cathflo (Activase)) 2 mg MAY REPEAT X1 PRN CATHETER IF CATHETER REMAINS OCCULUDED; Start 08/03/18 at 06:30 Metoprolol Tartrate (Lopressor) 5 mg Q4H PRN IV HR>110 Hold SBP<100; Start 08/03/18 at 15:30 Hydralazine HCl (Apresoline) 25 mg Q12 GTB ; Start 08/04/18 at 21:00 Metoprolol Tartrate (Lopressor) 25 mg Q12 GTB ; Start 08/04/18 at 21:00 Insulin Glargine (Lantus) 22 units BID SC Last administered on 08/05/18at 09:42; Admin Dose 22 UNITS; Start 08/04/18 at 21:00 Prednisone (Prednisone) 40 mg DAILY PO Last administered on 08/05/18at 09:32; Admin Dose 40 MG; Start 08/05/18 at 09:00 Vancomycin HCl (Vanco Iv Per Pharmacy) VANCOMYCIN PER PHARMACY PER PROTOCOL XX ; Start 08/04/18 at 17:30 Meropenem/Sodium Chloride 50 ml @ 100 mls/hr Q12 IVPB Last administered on 08/05/18at 09:30; Admin Dose 100 MLS/HR; Start 08/04/18 at 21:00 Insulin Human NPH (Humulin N) 20 unit DAILY@0900 SC Last administered on 08/05/18at 09:41; Admin Dose 20 UNIT; Start 08/05/18 at 09:00 Vancomycin/Sodium Chloride 250 ml @ 125 mls/hr Q72H IVPB ; Start 08/07/18 at 21:00 Furosemide (Lasix) 20 mg BID DIURETICS IV ; Start 08/05/18 at 18:00 FRANNIE RAMOS NP August 05, 2018 14:17
[2018-08-05] MEDS: FUROSEMIDE 20 MG INJ IV SCH (17:38)
--- NOTE | 2018-08-05 18:41 | PN ---
Date/Time of Note Date/Time of Note DATE: 08/05/18 TIME: 18:39 Assessment/Plan VTE Prophylaxis Risk score (from Ns)>0 risk: 9 SCD applied (from [facility]): No SCD contraindicated: bilateral amputee Pharmacological prophylaxis: LMWH Lines/Catheters IV C[facility]ter Type ([facility] Mid Line Urinary Cath still in place: No Assessment/Plan Hospital Course Patient spiked fever today, Dr. Wong is asked to see patient in infection disease consultation will obtain chest x-ray and cultures. Patient is started on Vanco and meropenem. 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 Pt continued on Prednisone. Dr. Inman is following in hematology consultation. -Anemia, monitor H&H. -VDRF with tracheostomy -Hx of Atrial fibrillation and atrial flutter. Continue metoprolol, unable to tolerate anticoagulation due to severe thrombocytopenia. -Cardiomyopathy with ejection fraction of 40% -Diabetes mellitus. Continue Lantus and NovoLog. 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 -Hx of Stage III sacral decubitus ulcer Further recommendations based on clinical course. Plan of care discussed with Dr. Villatoro. Result Diagram: 08/04/18 0454 08/04/18 0454 Results 24hrs Laboratory Tests Test 08/04/18 21:11 08/04/18 23:01 08/05/18 04:59 08/05/18 08:00 Bedside Glucose 107 119 126 Lab Scanned Report BLOOD TRANSFUSION Test 08/05/18 09:24 08/05/18 11:41 08/05/18 17:29 Bedside Glucose 116 132 203 Exam/Review of Systems Exam Vitals Vital Signs Date Temp Pulse Resp B/P (MAP) Pulse Ox O2 O2 Flow FiO2 Time Delivery Rate 08/05/18 108 14 96 30 17:18 08/05/18 98.3 94/58 (70) 15:05 08/01/18 Mechanical 15:28 Ventilator Intake and Output 08/04/18 08/04/18 08/05/18 1515:00 23:00 07:00 IntakeIntake Total 950 ml 1565 ml OutputOutput Total 50 ml 40 ml 70 ml BalanceBalance -50 ml 910 ml 1495 ml Exam Constitutional: alert, frail Neck: other (trach) Respiratory: diminished breath sounds Cardiovascular: irregular rhythm, other (PPM) Gastrointestinal: soft, non-tender, other (G tube , colostomy) Extremities: other (Bilateral BKA) Neurological: lethargic Skin: other (Sacral ulcer) Results Results 24hrs Laboratory Tests Test 08/04/18 21:11 08/04/18 23:01 08/05/18 04:59 08/05/18 08:00 Bedside Glucose 107 119 126 Lab Scanned Report BLOOD TRANSFUSION Test 08/05/18 09:24 08/05/18 11:41 08/05/18 17:29 Bedside Glucose 116 132 203 Medications Medication Current Medications IV Flush (NS 3 ml) 3 ml PER PROTOCOL IV ; Start 07/19/18 at 19:30 Ondansetron HCl (Zofran Inj) 4 mg Q6H PRN IV NAUSEA/VOMITING; Start 07/19/18 at 19:30 Morphine Sulfate (morphine) 2 mg Q4H PRN IV .PAIN 8-10 Last administered on 08/05/18at 04:15; Admin Dose 2 MG; Start 07/19/18 at 19:30 Ferrous Sulfate (Ferrous Sulfate (Ec)) 325 mg DAILY PO Last administered on 08/05/18at 09:32; Admin Dose 325 MG; Start 07/20/18 at 09:00; Stop 08/19/18 at 08:59 Nitroglycerin (Nitroglycerin (Sl Tab) 0.4 Mg) 1 tab [id number] PRN SL CHEST PAIN; Start 07/19/18 at 19:30 Miscellaneous Information (Pending Santyl Order For Wound Care) This patient pedro... PRN PRN XX WOUND CARE; Start 07/20/18 at 01:30 Lorazepam (Ativan) 0.5 mg Q6 PRN IV AGITATION/ANXIETY Last administered on 07/30/18at 05:31; Admin Dose 0.5 MG; Start 07/22/18 at 17:00 Lansoprazole (Prevacid) 30 mg DAILY@06 GTB Last administered on 08/05/18at 04:15; Admin Dose 30 MG; Start 07/25/18 at 06:00 Acetaminophen (Tylenol Tab) 650 mg Q6H PRN GTB .PAIN 1-3 OR TEMP Last administered on 08/05/18 01:31; Admin Dose 650 MG; Start 07/27/18 at 09:00 Acetaminophen (Tylenol Tab) 650 mg Q6H PRN GTB MILD TO MODERATE PAIN; Start 07/27/18 at 09:00 Ascorbic Acid (Vitamin C) 500 mg DAILY GTB Last administered on 08/05/18 09:32; Admin Dose 500 MG; Start 07/27/18 at 09:00 Atorvastatin Calcium (Lipitor) 20 mg QHS GTB Last administered on 08/04/18 21:14; Admin Dose 20 MG; Start 07/27/18 at 21:00 Duloxetine HCl (Cymbalta) 30 mg DAILY GTB Last administered on 08/05/18 09:32; Admin Dose 30 MG; Start 07/27/18 at 09:00 Gabapentin (Neurontin) 400 mg Q8 GTB Last administered on 08/05/18 13:30; Admin Dose 400 MG; Start 07/27/18 at 14:00 Isosorbide Dinitrate (Isordil) 10 mg TID GTB Last administered on 08/05/18 13:30; Admin Dose 10 MG; Start 07/27/18 at 09:00 Multivitamins (Multivitamin) 30 ml DAILY GTB Last administered on 08/05/18 09:32; Admin Dose 30 ML; Start 07/27/18 at 09:00 Ondansetron HCl (Zofran Tab) 4 mg Q4H PRN GTB NAUSEA AND/OR VOMITING; Start 07/27/18 at 09:00 Senna (Senokot) 1 tab BID GTB Last administered on 08/05/18 09:33; Admin Dose 1 TAB; Start 07/27/18 at 09:00 Tramadol HCl (Ultram) 50 mg Q6H PRN GTB PAIN LEVEL 4-7; Start 07/27/18 at 09:00 Miscellaneous Information 1 ea NOTE XX ; Start 07/27/18 at 09:00 Glucose (Glutose) 15 gm Q15M PRN PO DECREASED GLUCOSE; Start 07/27/18 at 09:00 Glucose (Glutose) 22.5 gm Q15M PRN PO DECREASED GLUCOSE; Start 07/27/18 at 09:00 Dextrose (D50w Syringe) 25 ml Q15M PRN IV DECREASED GLUCOSE; Start 07/27/18 at 09:00 Dextrose (D50w Syringe) 50 ml Q15M PRN IV DECREASED GLUCOSE; Start 07/27/18 at 09:00 Glucagon (Glucagen) 1 mg Q15M PRN IM DECREASED GLUCOSE; Start 07/27/18 at 09:00 Glucose (Glutose) 15 gm Q15M PRN BUCCAL DECREASED GLUCOSE; Start 07/27/18 at 09:00 Insulin Aspart (Novolog Insulin Pen) NOVOLOG *MODERATE* ALGORI... Q6 SC Last administered on 08/05/18at 17:33; Admin Dose 4 UNIT; Start 07/31/18 at 18:00 Alteplase, Recombinant (Cathflo (Activase)) 2 mg MAY REPEAT X1 PRN CATHETER IF CATHETER REMAINS OCCULUDED; Start 08/03/18 at 06:30 Metoprolol Tartrate (Lopressor) 5 mg Q4H PRN IV HR>110 Hold SBP<100; Start 08/03/18 at 15:30 Hydralazine HCl (Apresoline) 25 mg Q12 GTB ; Start 08/04/18 at 21:00 Metoprolol Tartrate (Lopressor) 25 mg Q12 GTB ; Start 08/04/18 at 21:00 Insulin Glargine (Lantus) 22 units BID SC Last administered on 08/05/18at 09:42; Admin Dose 22 UNITS; Start 08/04/18 at 21:00 Prednisone (Prednisone) 40 mg DAILY PO Last administered on 08/05/18at 09:32; Admin Dose 40 MG; Start 08/05/18 at 09:00 Vancomycin HCl (Vanco Iv Per Pharmacy) VANCOMYCIN PER PHARMACY PER PROTOCOL XX ; Start 08/04/18 at 17:30 Meropenem/Sodium Chloride 50 ml @ 100 mls/hr Q12 IVPB Last administered on 08/05/18at 09:30; Admin Dose 100 MLS/HR; Start 08/04/18 at 21:00 Insulin Human NPH (Humulin N) 20 unit DAILY@0900 SC Last administered on 08/05/18at 09:41; Admin Dose 20 UNIT; Start 08/05/18 at 09:00 Vancomycin/Sodium Chloride 250 ml @ 125 mls/hr Q72H IVPB ; Start 08/07/18 at 21:00 Furosemide (Lasix) 20 mg BID DIURETICS IV Last administered on 08/05/18at 17:38; Admin Dose 20 MG; Start 08/05/18 at 18:00 LIDYA DC August 05, 2018 18:41
[2018-08-05] MEDS: ATORVASTATIN 20 MG TAB GTB SCH (20:57)
[2018-08-05] MEDS ORDERED: VANCOMYCIN HCL 1.25 GM in SOD CHLORIDE 0.9% 250 ML IVPB SCH (22:00)
[2018-08-06] VITALS (21 sets, daily range): BP systolic 97–121; BP diastolic 59–94; PULSE 60–131; RESP 14–20
[2018-08-06] MEDS: morphine 2 MG INJ IV PRN (04:26)
[2018-08-06] MEDS: GABAPENTIN 400 MG CAP GTB SCH ×3 (04:26→21:35)
[2018-08-06] MEDS: LANSOPRAZOLE 30 MG CAP GTB SCH (04:26)
[2018-08-06] MEDS: FUROSEMIDE 20 MG INJ IV SCH ×2 (04:27→17:40)
[2018-08-06] MEDS: INSULIN ASPART [NOVOLOG] 3 ML PEN SC SCH ×4 (05:43→17:38)
[2018-08-06] MEDS: MULTIVITAMINS 30 ML CUP GTB SCH (09:02)
[2018-08-06] MEDS: MEROPENEM 1 GM/50ML(PMX) 50 ML IVPB SCH ×2 (09:04→20:08)
[2018-08-06] MEDS: ASCORBIC ACID 500 MG TAB GTB SCH (09:05)
[2018-08-06] MEDS: FERROUS SULFATE (EC) 325 MG TAB PO SCH (09:05)
[2018-08-06] MEDS: DULOXETINE 30 MG CAP DR GTB SCH (09:05)
[2018-08-06] MEDS: SENNA TAB GTB SCH ×2 (09:05→20:08)
--- NOTE | 2018-08-06 09:05 | CONS ---
Assessment/Plan Assessment/Plan Assessment/Plan (Daily) 1. Uremia with BUN rising to 100, Cr normal 3. ITP 4. severe thrombocytopenia 5. accelerated HTN 6. VDRF s/p Tracheostomy 7. Dysphagia S/p G tube Plan: Continue Hydralazine 50mg PO Q8 hr and MTP 50mg pO Q 8 hr Na 136, BUN/Cr68/0.98 BP stable s/p PRBC, Hb 8/ today will follow up Consultation Date/Type/Reason Admit Date/Time Jul 19, 2018 at 18:40 Initial Consult Date 07/22/18 Type of Consult NEPHROLOGY Requesting Provider: LES TRENT Date/Time of Note DATE: 08/06/18 TIME: 09:05 Exam/Review of Systems Exam Vitals Vital Signs Date Temp Pulse Resp B/P (MAP) Pulse Ox O2 O2 Flow FiO2 Time Delivery Rate 08/06/18 131 08:12 08/06/18 98.0 20 97/65 (76) 97 07:40 08/06/18 30 05:46 Intake and Output 08/05/18 08/05/18 08/06/18 1515:00 23:00 07:00 IntakeIntake Total 1100 ml 1015 ml OutputOutput Total 50 ml BalanceBalance 1050 ml 1015 ml Results Result Diagram: 08/06/18 0515 08/06/18 0515 Results 24hrs Laboratory Tests Test 08/05/18 09:24 08/05/18 11:41 08/05/18 17:29 08/05/18 20:54 Bedside Glucose 116 132 203 254 H Test 08/05/18 23:52 08/06/18 05:15 08/06/18 05:35 Bedside Glucose 288 H 292 H White Blood Count 6.6 Red Blood Count 3.03 L Hemoglobin 8.1 L Hematocrit 26.7 L Mean Corpuscular Volume 88.1 Mean Corpuscular 26.7 L Hemoglobin Mean Corpuscular 30.3 L Hemoglobin Concent Red Cell Distribution 17.9 H Width Platelet Count 74 #L Mean Platelet Volume 12.8 H Immature Granulocytes % 0.900 H Neutrophils % 82.8 H Lymphocytes % 11.4 L Monocytes % 4.6 Eosinophils % 0.0 Basophils % 0.3 Nucleated Red Blood 0.3 H Cells % Immature Granulocytes # 0.060 H Neutrophils # 5.4 Lymphocytes # 0.8 Monocytes # 0.3 Eosinophils # 0.0 Basophils # 0.0 Nucleated Red Blood 0.0 Cells # Sodium Level 134 L Potassium Level 4.4 Chloride Level 95 L Carbon Dioxide Level 34 H Anion Gap 5 Blood Urea Nitrogen 83 H Creatinine 0.92 Est Glomerular Filtrat > 60 Rate mL/min Glucose Level 296 H Calcium Level 7.5 L Medications Medication Current Medications IV Flush (NS 3 ml) 3 ml PER PROTOCOL IV ; Start 07/19/18 at 19:30 Ondansetron HCl (Zofran Inj) 4 mg Q6H PRN IV NAUSEA/VOMITING; Start 07/19/18 at 19:30 Morphine Sulfate (morphine) 2 mg Q4H PRN IV .PAIN 8-10 Last administered on 08/06/18 04:26; Admin Dose 2 MG; Start 07/19/18 at 19:30 Ferrous Sulfate (Ferrous Sulfate (Ec)) 325 mg DAILY PO Last administered on 08/05/18 09:32; Admin Dose 325 MG; Start 07/20/18 at 09:00; Stop 08/19/18 at 08:59 Nitroglycerin (Nitroglycerin (Sl Tab) 0.4 Mg) 1 tab [id number] PRN SL CHEST PAIN; Start 07/19/18 at 19:30 Miscellaneous Information (Pending [facility] Order For Wound Care) This patient pedro... PRN PRN XX WOUND CARE; Start 07/20/18 at 01:30 Lorazepam (Ativan) 0.5 mg Q6 PRN IV AGITATION/ANXIETY Last administered on 07/30/18 05:31; Admin Dose 0.5 MG; Start 07/22/18 at 17:00 Lansoprazole (Prevacid) 30 mg DAILY@06 GTB Last administered on 08/06/18 04:26; Admin Dose 30 MG; Start 07/25/18 at 06:00 Acetaminophen (Tylenol Tab) 650 mg Q6H PRN GTB .PAIN 1-3 OR TEMP Last administered on 08/05/18 20:57; Admin Dose 650 MG; Start 07/27/18 at 09:00 Acetaminophen (Tylenol Tab) 650 mg Q6H PRN GTB MILD TO MODERATE PAIN; Start 07/27/18 at 09:00 Ascorbic Acid (Vitamin C) 500 mg DAILY GTB Last administered on 08/05/18 09:32; Admin Dose 500 MG; Start 07/27/18 at 09:00 Atorvastatin Calcium (Lipitor) 20 mg QHS GTB Last administered on 08/05/18 20:57; Admin Dose 20 MG; Start 07/27/18 at 21:00 Duloxetine HCl (Cymbalta) 30 mg DAILY GTB Last administered on 08/05/18 09:32; Admin Dose 30 MG; Start 07/27/18 at 09:00 Gabapentin (Neurontin) 400 mg Q8 GTB Last administered on 08/06/18 04:26; Admin Dose 400 MG; Start 07/27/18 at 14:00 Isosorbide Dinitrate (Isordil) 10 mg TID GTB Last administered on 08/05/18 13: 30; Admin Dose 10 MG; Start 07/27/18 at 09:00 Multivitamins (Multivitamin) 30 ml DAILY GTB Last administered on 08/05/18 09:32; Admin Dose 30 ML; Start 07/27/18 at 09:00 Ondansetron HCl (Zofran Tab) 4 mg Q4H PRN GTB NAUSEA AND/OR VOMITING; Start 07/27/18 at 09:00 Senna (Senokot) 1 tab BID GTB Last administered on 08/05/18 20:57; Admin Dose 1 TAB; Start 07/27/18 at 09:00 Tramadol HCl (Ultram) 50 mg Q6H PRN GTB PAIN LEVEL 4-7; Start 07/27/18 at 09:00 Miscellaneous Information 1 ea NOTE XX ; Start 07/27/18 at 09:00 Glucose (Glutose) 15 gm Q15M PRN PO DECREASED GLUCOSE; Start 07/27/18 at 09:00 Glucose (Glutose) 22.5 gm Q15M PRN PO DECREASED GLUCOSE; Start 07/27/18 at 09:00 Dextrose (D50w Syringe) 25 ml Q15M PRN IV DECREASED GLUCOSE; Start 07/27/18 at 09:00 Dextrose (D50w Syringe) 50 ml Q15M PRN IV DECREASED GLUCOSE; Start 07/27/18 at 09:00 Glucagon (Glucagen) 1 mg Q15M PRN IM DECREASED GLUCOSE; Start 07/27/18 at 09:00 Glucose (Glutose) 15 gm Q15M PRN BUCCAL DECREASED GLUCOSE; Start 07/27/18 at 09:00 Insulin Aspart (Novolog Insulin Pen) NOVOLOG *MODERATE* ALGORI... Q6 SC Last a dministered on 08/06/18at 05:43; Admin Dose 8 UNIT; Start 07/31/18 at 18:00 Alteplase, Recombinant (Cathflo (Activase)) 2 mg MAY REPEAT X1 PRN CATHETER IF CATHETER REMAINS OCCULUDED; Start 08/03/18 at 06:30 Metoprolol Tartrate (Lopressor) 5 mg Q4H PRN IV HR>110 Hold SBP<100; Start 08/03/18 at 15:30 Hydralazine HCl (Apresoline) 25 mg Q12 GTB ; Start 08/04/18 at 21:00 Metoprolol Tartrate (Lopressor) 25 mg Q12 GTB ; Start 08/04/18 at 21:00 Insulin Glargine (Lantus) 22 units BID SC Last administered on 08/05/18at 21:17; Admin Dose 22 UNITS; Start 08/04/18 at 21:00 Prednisone (Prednisone) 40 mg DAILY PO Last administered on 08/05/18at 09:32; Admin Dose 40 MG; Start 08/05/18 at 09:00 Vancomycin HCl (Vanco Iv Per Pharmacy) VANCOMYCIN PER PHARMACY PER PROTOCOL XX ; Start 08/04/18 at 17:30 Meropenem/Sodium Chloride 50 ml @ 100 mls/hr Q12 IVPB Last administered on 08/05/18at 20:57; Admin Dose 100 MLS/HR; Start 08/04/18 at 21:00 Insulin Human NPH (Humulin N) 20 unit DAILY@0900 SC Last administered on 08/05/18 at 09:41; Admin Dose 20 UNIT; Start 08/05/18 at 09:00 Vancomycin/Sodium Chloride 250 ml @ 125 mls/hr Q72H IVPB ; Start 08/07/18 at 21:00 Furosemide (Lasix) 20 mg BID DIURETICS IV Last administered on 08/06/18at 04:27; Admin Dose 20 MG; Start 08/05/18 at 18:00 OCTAVIO BOX MD August 06, 2018 09:05
[2018-08-06] MEDS: predniSONE 20 MG TAB PO SCH (09:06)
[2018-08-06] MEDS: METOPROLOL 25 MG TAB GTB SCH ×2 (09:06→20:15)
[2018-08-06] MEDS: ISOSORBIDE DINITRATE 10 MG TAB GTB SCH ×3 (09:06→20:08)
[2018-08-06] MEDS: NPH, HUMAN INSULIN ISOPHANE 3ML VIAL SC SCH (09:08)
[2018-08-06] MEDS: INSULIN GLARGINE [LANTus] (100 UNITS/ML) SYG SC SCH (10:10)
--- NOTE | 2018-08-06 13:26 | CONS ---
Assessment/Plan Assessment/Plan Problems: (1) Diabetes mellitus, type 2 Status: Chronic Comment: Sugars have risen with the usage of the prednisone at 40 mg a day. Is receiving NPH insulin at the time of that which is helping to blunt the hyperglycemic response. Continue with current treatment. 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 Diabetes mellitus complication status: with other specified complication Qualified Codes: E11.69 - Type 2 diabetes mellitus with other specified complication; Z79.4 - exterminator termite (current) use of insulin Consultation Date/Type/Reason Admit Date/Time Jul 19, 2018 at 18:40 Initial Consult Date 07/24/18 Type of Consult Endocrine Reason for Consultation Diabetes mellitus type 2 with intolerance to DPP 4 inhibitors to pancreatitis, therefore also intolerant of GLP-1 drugs, now with hyperglycemia due to steroids being given for ITP Requesting Provider: LES TRENT Date/Time of Note DATE: 08/06/18 TIME: 13:25 24 HR Interval Summary Constitutional: no complaints Detailed Summary Endocrine: no complaints Exam/Review of Systems Exam Vitals Vital Signs Date Temp Pulse Resp B/P (MAP) Pulse Ox O2 O2 Flow FiO2 Time Delivery Rate 08/06/18 98 12:15 08/06/18 98.3 20 119/59 95 11:26 (79) 08/06/18 30 10:26 Intake and Output 08/05/18 08/05/18 08/06/18 1515:00 23:00 07:00 IntakeIntake Total 1100 ml 1015 ml OutputOutput Total 50 ml BalanceBalance 1050 ml 1015 ml Exam No change in exam Results Result Diagram: 08/06/18 0515 08/06/18 0515 Results 24hrs Laboratory Tests Test 08/05/18 17:29 08/05/18 20:54 08/05/18 23:52 08/06/18 05:15 Bedside Glucose 203 254 H 288 H White Blood Count 6.6 Red Blood Count 3.03 L Hemoglobin 8.1 L Hematocrit 26.7 L Mean Corpuscular Volume 88.1 Mean Corpuscular 26.7 L Hemoglobin Mean Corpuscular 30.3 L Hemoglobin Concent Red Cell Distribution 17.9 H Width Platelet Count 74 #L Mean Platelet Volume 12.8 H Immature Granulocytes % 0.900 H Neutrophils % 82.8 H Lymphocytes % 11.4 L Monocytes % 4.6 Eosinophils % 0.0 Basophils % 0.3 Nucleated Red Blood 0.3 H Cells % Immature Granulocytes # 0.060 H Neutrophils # 5.4 Lymphocytes # 0.8 Monocytes # 0.3 Eosinophils # 0.0 Basophils # 0.0 Nucleated Red Blood 0.0 Cells # Sodium Level 134 L Potassium Level 4.4 Chloride Level 95 L Carbon Dioxide Level 34 H Anion Gap 5 Blood Urea Nitrogen 83 H Creatinine 0.92 Est Glomerular Filtrat > 60 Rate mL/min Glucose Level 296 H Calcium Level 7.5 L Test 08/06/18 05:35 08/06/18 09:03 08/06/18 11:42 Bedside Glucose 292 H 309 H 346 H Medications Medication Current Medications IV Flush (NS 3 ml) 3 ml PER PROTOCOL IV ; Start 07/19/18 at 19:30 Ondansetron HCl (Zofran Inj) 4 mg Q6H PRN IV NAUSEA/VOMITING; Start 07/19/18 at 19:30 Morphine Sulfate (morphine) 2 mg Q4H PRN IV .PAIN 8-10 Last administered on 08/06/18 04:26; Admin Dose 2 MG; Start 07/19/18 at 19:30 Ferrous Sulfate (Ferrous Sulfate (Ec)) 325 mg DAILY PO Last administered on 08/06/18 09:05; Admin Dose 325 MG; Start 07/20/18 at 09:00; Stop 08/19/18 at 08:59 Nitroglycerin (Nitroglycerin (Sl Tab) 0.4 Mg) 1 tab [id number] PRN SL CHEST PAIN; Start 07/19/18 at 19:30 Miscellaneous Information (Pending [facility] Order For Wound Care) This patient pedro... PRN PRN XX WOUND CARE; Start 07/20/18 at 01:30 Lorazepam (Ativan) 0.5 mg Q6 PRN IV AGITATION/ANXIETY Last administered on 07/30/18 05:31; Admin Dose 0.5 MG; Start 07/22/18 at 17:00 Lansoprazole (Prevacid) 30 mg DAILY@06 GTB Last administered on 08/06/18 04:26; Admin Dose 30 MG; Start 07/25/18 at 06:00 Acetaminophen (Tylenol Tab) 650 mg Q6H PRN GTB .PAIN 1-3 OR TEMP Last administered on 08/05/18 20:57; Admin Dose 650 MG; Start 07/27/18 at 09:00 Acetaminophen (Tylenol Tab) 650 mg Q6H PRN GTB MILD TO MODERATE PAIN; Start 07/27/18 at 09:00 Ascorbic Acid (Vitamin C) 500 mg DAILY GTB Last administered on 08/06/18 09:05; Admin Dose 500 MG; Start 07/27/18 at 09:00 Atorvastatin Calcium (Lipitor) 20 mg QHS GTB Last administered on 08/05/18 20:57; Admin Dose 20 MG; Start 07/27/18 at 21:00 Duloxetine HCl (Cymbalta) 30 mg DAILY GTB Last administered on 08/06/18 09:05; Admin Dose 30 MG; Start 07/27/18 at 09:00 Gabapentin (Neurontin) 400 mg Q8 GTB Last administered on 08/06/18 13:17; Admin Dose 400 MG; Start 07/27/18 at 14:00 Isosorbide Dinitrate (Isordil) 10 mg TID GTB Last administered on 08/06/18 13:17; Admin Dose 10 MG; Start 07/27/18 at 09:00 Multivitamins (Multivitamin) 30 ml DAILY GTB Last administered on 08/06/18 09:02; Admin Dose 30 ML; Start 07/27/18 at 09:00 Ondansetron HCl (Zofran Tab) 4 mg Q4H PRN GTB NAUSEA AND/OR VOMITING; Start 07/27/18 at 09:00 Senna (Senokot) 1 tab BID GTB Last administered on 08/06/18 09:05; Admin Dose 1 TAB; Start 07/27/18 at 09:00 Tramadol HCl (Ultram) 50 mg Q6H PRN GTB PAIN LEVEL 4-7; Start 07/27/18 at 09:00 Miscellaneous Information 1 ea NOTE XX ; Start 07/27/18 at 09:00 Glucose (Glutose) 15 gm Q15M PRN PO DECREASED GLUCOSE; Start 07/27/18 at 09:00 Glucose (Glutose) 22.5 gm Q15M PRN PO DECREASED GLUCOSE; Start 07/27/18 at 09:00 Dextrose (D50w Syringe) 25 ml Q15M PRN IV DECREASED GLUCOSE; Start 07/27/18 at 09:00 Dextrose (D50w Syringe) 50 ml Q15M PRN IV DECREASED GLUCOSE; Start 07/27/18 at 09:00 Glucagon (Glucagen) 1 mg Q15M PRN IM DECREASED GLUCOSE; Start 07/27/18 at 09:00 Glucose (Glutose) 15 gm Q15M PRN BUCCAL DECREASED GLUCOSE; Start 07/27/18 at 09:00 Insulin Aspart (Novolog Insulin Pen) NOVOLOG *MODERATE* ALGORI... Q6 SC Last administered on 08/06/18at 11:49; Admin Dose 10 UNIT; Start 07/31/18 at 18:00 Alteplase, Recombinant (Cathflo (Activase)) 2 mg MAY REPEAT X1 PRN CATHETER IF CATHETER REMAINS OCCULUDED; Start 08/03/18 at 06:30 Metoprolol Tartrate (Lopressor) 5 mg Q4H PRN IV HR>110 Hold SBP<100; Start 08/03/18 at 15:30 Hydralazine HCl (Apresoline) 25 mg Q12 GTB Last administered on 08/06/18at 09:05; Admin Dose 25 MG; Start 08/04/18 at 21:00 Metoprolol Tartrate (Lopressor) 25 mg Q12 GTB Last administered on 08/06/18 09:06; Admin Dose 25 MG; Start 08/04/18 at 21:00 Insulin Glargine (Lantus) 22 units BID SC Last administered on 08/06/18 10:10; Admin Dose 22 UNITS; Start 08/04/18 at 21:00 Prednisone (Prednisone) 40 mg DAILY PO Last administered on 08/06/18 09:06; Admin Dose 40 MG; Start 08/05/18 at 09:00 Vancomycin HCl (Vanco Iv Per Pharmacy) VANCOMYCIN PER PHARMACY PER PROTOCOL XX ; Start 08/04/18 at 17:30 Meropenem/Sodium Chloride 50 ml @ 100 mls/hr Q12 IVPB Last administered on 08/06/18 09:04; Admin Dose 100 MLS/HR; Start 08/04/18 at 21:00 Insulin Human NPH (Humulin N) 20 unit DAILY@0900 SC Last administered on 08/06/18 09:08; Admin Dose 20 UNIT; Start 08/05/18 at 09:00 Vancomycin/Sodium Chloride 250 ml @ 125 mls/hr Q72H IVPB ; Start 08/07/18 at 21:00 Furosemide (Lasix) 20 mg BID DIURETICS IV Last administered on 08/06/18at 04:27; Admin Dose 20 MG; Start 08/05/18 at 18:00 DORIAN ACOSTA MD August 06, 2018 13:26
--- NOTE | 2018-08-06 14:07 | CONS ---
Assessment/Plan Assessment/Plan Hospital Course (Demo Recall) No acute changes patient is lying comfortably in bed no fevers overnight WBC today 6.6 neutrophils 82.8 BUN 83 creatinine 0.92. Blood cultures remain negative. Indwelling's: Trach PEG RUE PICC Chest x-ray 2 days ago revealed persistent extensive bilateral airspace opacities Antimicrobials: Vancomycin, meropenem Allergy: Penicillin Cipro Physical examination: This is a morbidly obese well-developed chronically ill- appearing elderly man who is lethargic in no distress. Head atraumatic normocephalic neck is supple chest rise symmetrical breath sounds diminished bases. Heart: S1-S2. Abdomen obese soft bowel sounds hypoactive. Extremities with bilateral edema, bilateral left below-knee amputation Assessment: 1. New onset of fevers possibly nosocomial sepsis, rule out infected PICC line 2. Chronic respiratory failure and dysphagia 3. Anemia and thrombocytopenia 4. History of MRSA bacteremia 5. History of urinary tract infection 6. Coronary artery disease status post CABG and permanent pacemaker placement 7. Morbid obesity Plan: Patient is stable, fevers resolved, he is on appropriate antibiotic regimen, blood cultures negative, stool for C. difficile was counseled per infectious control recommendations Consultation Date/Type/Reason Admit Date/Time Jul 19, 2018 at 18:40 Initial Consult Date 07/24/18 Type of Consult id Requesting Provider: LES TRENT Date/Time of Note DATE: 08/06/18 TIME: 14:06 Exam/Review of Systems Exam Vitals Vital Signs Date Temp Pulse Resp B/P (MAP) Pulse Ox O2 O2 Flow FiO2 Time Delivery Rate 08/06/18 98 12:15 08/06/18 98.3 20 119/59 95 11:26 (79) 08/06/18 30 10:26 Intake and Output 08/05/18 08/05/18 08/06/18 1414:59 22:59 06:59 IntakeIntake Total 1100 ml 1015 ml OutputOutput Total 50 ml BalanceBalance 1050 ml 1015 ml Results Result Diagram: 08/06/18 0515 08/06/18 0515 Results 24hrs Laboratory Tests Test 08/05/18 17:29 08/05/18 20:54 08/05/18 23:52 08/06/18 05:15 Bedside Glucose 203 254 H 288 H White Blood Count 6.6 Red Blood Count 3.03 L Hemoglobin 8.1 L Hematocrit 26.7 L Mean Corpuscular Volume 88.1 Mean Corpuscular 26.7 L Hemoglobin Mean Corpuscular 30.3 L Hemoglobin Concent Red Cell Distribution 17.9 H Width Platelet Count 74 #L Mean Platelet Volume 12.8 H Immature Granulocytes % 0.900 H Neutrophils % 82.8 H Lymphocytes % 11.4 L Monocytes % 4.6 Eosinophils % 0.0 Basophils % 0.3 Nucleated Red Blood 0.3 H Cells % Immature Granulocytes # 0.060 H Neutrophils # 5.4 Lymphocytes # 0.8 Monocytes # 0.3 Eosinophils # 0.0 Basophils # 0.0 Nucleated Red Blood 0.0 Cells # Sodium Level 134 L Potassium Level 4.4 Chloride Level 95 L Carbon Dioxide Level 34 H Anion Gap 5 Blood Urea Nitrogen 83 H Creatinine 0.92 Est Glomerular Filtrat > 60 Rate mL/min Glucose Level 296 H Calcium Level 7.5 L Test 08/06/18 05:35 08/06/18 09:03 08/06/18 11:42 Bedside Glucose 292 H 309 H 346 H Medications Medication Current Medications IV Flush (NS 3 ml) 3 ml PER PROTOCOL IV ; Start 07/19/18 at 19:30 Ondansetron HCl (Zofran Inj) 4 mg Q6H PRN IV NAUSEA/VOMITING; Start 07/19/18 at 19:30 Morphine Sulfate (morphine) 2 mg Q4H PRN IV .PAIN 8-10 Last administered on 08/06/18at 04:26; Admin Dose 2 MG; Start 07/19/18 at 19:30 Ferrous Sulfate (Ferrous Sulfate (Ec)) 325 mg DAILY PO Last administered on 08/06/18at 09:05; Admin Dose 325 MG; Start 07/20/18 at 09:00; Stop 08/19/18 at 08:59 Nitroglycerin (Nitroglycerin (Sl Tab) 0.4 Mg) 1 tab [id number] PRN SL CHEST PAIN; Start 07/19/18 at 19:30 Miscellaneous Information (Pending Santyl Order For Wound Care) This patient pedro... PRN PRN XX WOUND CARE; Start 07/20/18 at 01:30 Lorazepam (Ativan) 0.5 mg Q6 PRN IV AGITATION/ANXIETY Last administered on 07/30/18at 05:31; Admin Dose 0.5 MG; Start 07/22/18 at 17:00 Lansoprazole (Prevacid) 30 mg DAILY@06 GTB Last administered on 08/06/18 04:26; Admin Dose 30 MG; Start 07/25/18 at 06:00 Acetaminophen (Tylenol Tab) 650 mg Q6H PRN GTB .PAIN 1-3 OR TEMP Last administered on 08/05/18 20:57; Admin Dose 650 MG; Start 07/27/18 at 09:00 Acetaminophen (Tylenol Tab) 650 mg Q6H PRN GTB MILD TO MODERATE PAIN; Start 07/27/18 at 09:00 Ascorbic Acid (Vitamin C) 500 mg DAILY GTB Last administered on 08/06/18 09:05; Admin Dose 500 MG; Start 07/27/18 at 09:00 Atorvastatin Calcium (Lipitor) 20 mg QHS GTB Last administered on 08/05/18 20:57; Admin Dose 20 MG; Start 07/27/18 at 21:00 Duloxetine HCl (Cymbalta) 30 mg DAILY GTB Last administered on 08/06/18 09:05; Admin Dose 30 MG; Start 07/27/18 at 09:00 Gabapentin (Neurontin) 400 mg Q8 GTB Last administered on 08/06/18 13:17; Admin Dose 400 MG; Start 07/27/18 at 14:00 Isosorbide Dinitrate (Isordil) 10 mg TID GTB Last administered on 08/06/18 13:17; Admin Dose 10 MG; Start 07/27/18 at 09:00 Multivitamins (Multivitamin) 30 ml DAILY GTB Last administered on 08/06/18 09:02; Admin Dose 30 ML; Start 07/27/18 at 09:00 Ondansetron HCl (Zofran Tab) 4 mg Q4H PRN GTB NAUSEA AND/OR VOMITING; Start 07/27/18 at 09:00 Senna (Senokot) 1 tab BID GTB Last administered on 08/06/18 09:05; Admin Dose 1 TAB; Start 07/27/18 at 09:00 Tramadol HCl (Ultram) 50 mg Q6H PRN GTB PAIN LEVEL 4-7; Start 07/27/18 at 09:00 Miscellaneous Information 1 ea NOTE XX ; Start 07/27/18 at 09:00 Glucose (Glutose) 15 gm Q15M PRN PO DECREASED GLUCOSE; Start 07/27/18 at 09:00 Glucose (Glutose) 22.5 gm Q15M PRN PO DECREASED GLUCOSE; Start 07/27/18 at 09:00 Dextrose (D50w Syringe) 25 ml Q15M PRN IV DECREASED GLUCOSE; Start 07/27/18 at 09:00 Dextrose (D50w Syringe) 50 ml Q15M PRN IV DECREASED GLUCOSE; Start 07/27/18 at 09:00 Glucagon (Glucagen) 1 mg Q15M PRN IM DECREASED GLUCOSE; Start 07/27/18 at 09:00 Glucose (Glutose) 15 gm Q15M PRN BUCCAL DECREASED GLUCOSE; Start 07/27/18 at 09:00 Insulin Aspart (Novolog Insulin Pen) NOVOLOG *MODERATE* ALGORI... Q6 SC Last administered on 08/06/18at 11:49; Admin Dose 10 UNIT; Start 07/31/18 at 18:00 Alteplase, Recombinant (Cathflo (Activase)) 2 mg MAY REPEAT X1 PRN CATHETER IF CATHETER REMAINS OCCULUDED; Start 08/03/18 at 06:30 Metoprolol Tartrate (Lopressor) 5 mg Q4H PRN IV HR>110 Hold SBP<100; Start 08/03/18 at 15:30 Hydralazine HCl (Apresoline) 25 mg Q12 GTB Last administered on 08/06/18at 09:05; Admin Dose 25 MG; Start 08/04/18 at 21:00 Metoprolol Tartrate (Lopressor) 25 mg Q12 GTB Last administered on 08/06/18at 09:06; Admin Dose 25 MG; Start 08/04/18 at 21:00 Prednisone (Prednisone) 40 mg DAILY PO Last administered on 08/06/18at 09:06; Admin Dose 40 MG; Start 08/05/18 at 09:00 Vancomycin HCl (Vanco Iv Per Pharmacy) VANCOMYCIN PER PHARMACY PER PROTOCOL XX ; Start 08/04/18 at 17:30 Meropenem/Sodium Chloride 50 ml @ 100 mls/hr Q12 IVPB Last administered on 08/06/18at 09:04; Admin Dose 100 MLS/HR; Start 08/04/18 at 21:00 Vancomycin/Sodium Chloride 250 ml @ 125 mls/hr Q72H IVPB ; Start 08/07/18 at 21:00 Furosemide (Lasix) 20 mg BID DIURETICS IV Last administered on 08/06/18at 04:27; Admin Dose 20 MG; Start 08/05/18 at 18:00 Insulin Glargine (Lantus) 25 units BID SC ; Start 08/06/18 at 21:00 Insulin Human NPH (Humulin N) 24 unit DAILY@0900 SC ; Start 08/07/18 at 09:00 FRANNIE RAMOS NP August 06, 2018 14:07
--- NOTE | 2018-08-06 14:25 | PN ---
Date/Time of Note Date/Time of Note DATE: 08/06/18 TIME: 14:21 Assessment/Plan VTE Prophylaxis Risk score (from [facility]0 risk: 10 SCD applied (from [facility]): No SCD contraindicated: bilateral amputee Pharmacological prophylaxis: NA/contraindicated Pharm contraindication: thrombocytopenia Lines/Catheters [facility]from [facility] Mid Line Central line still needed: Yes Urinary Cath still in place: No Assessment/Plan Hospital Course Patient continues on ventilatory support, lethargic but easily arousable, no fever, atrial fibrillation at controlled rate, platelets count is 74,000, hyperglycemia. Assessment/Plan -Fever, continue antibiotics per ID. Dr. Wong following in infection disease consultation. 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 Pt continued on Prednisone. Dr. Inman is following in hematology consultation. -Anemia, monitor H&H. -VDRF with tracheostomy -Hx of Atrial fibrillation and atrial flutter. Continue metoprolol, unable to tolerate anticoagulation due to severe thrombocytopenia. -Cardiomyopathy with ejection fraction of 40% -Diabetes mellitus. Continue Lantus and NovoLog. 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 -Hx of Stage III sacral decubitus ulcer Further recommendations based on clinical course. Plan of care discussed with Dr. Villatoro. Result Diagram: 08/06/18 0515 08/06/18 0515 Results 24hrs Laboratory Tests Test 08/05/18 17:29 08/05/18 20:54 08/05/18 23:52 08/06/18 05:15 Bedside Glucose 203 254 H 288 H White Blood Count 6.6 Red Blood Count 3.03 L Hemoglobin 8.1 L Hematocrit 26.7 L Mean Corpuscular Volume 88.1 Mean Corpuscular 26.7 L Hemoglobin Mean Corpuscular 30.3 L Hemoglobin Concent Red Cell Distribution 17.9 H Width Platelet Count 74 #L Mean Platelet Volume 12.8 H Immature Granulocytes % 0.900 H Neutrophils % 82.8 H Lymphocytes % 11.4 L Monocytes % 4.6 Eosinophils % 0.0 Basophils % 0.3 Nucleated Red Blood 0.3 H Cells % Immature Granulocytes # 0.060 H Neutrophils # 5.4 Lymphocytes # 0.8 Monocytes # 0.3 Eosinophils # 0.0 Basophils # 0.0 Nucleated Red Blood 0.0 Cells # Sodium Level 134 L Potassium Level 4.4 Chloride Level 95 L Carbon Dioxide Level 34 H Anion Gap 5 Blood Urea Nitrogen 83 H Creatinine 0.92 Est Glomerular Filtrat > 60 Rate mL/min Glucose Level 296 H Calcium Level 7.5 L Test 08/06/18 05:35 08/06/18 09:03 08/06/18 11:42 Bedside Glucose 292 H 309 H 346 H Exam/Review of Systems Exam Vitals Vital Signs Date Temp Pulse Resp B/P (MAP) Pulse Ox O2 O2 Flow FiO2 Time Delivery Rate 08/06/18 98 12:15 08/06/18 98.3 20 119/59 95 11:26 (79) 08/06/18 30 10:26 Intake and Output 08/05/18 08/05/18 08/06/18 1414:59 22:59 06:59 IntakeIntake Total 1100 ml 1015 ml OutputOutput Total 50 ml BalanceBalance 1050 ml 1015 ml Exam Constitutional: alert, frail Neck: other (trach) Respiratory: diminished breath sounds Cardiovascular: irregular rhythm, other (PPM) Gastrointestinal: soft, non-tender, other (G tube , colostomy) Extremities: other (Bilateral BKA) Neurological: lethargic Skin: other (Sacral ulcer) Results Results 24hrs Laboratory Tests Test 08/05/18 17:29 08/05/18 20:54 08/05/18 23:52 08/06/18 05:15 Bedside Glucose 203 254 H 288 H White Blood Count 6.6 Red Blood Count 3.03 L Hemoglobin 8.1 L Hematocrit 26.7 L Mean Corpuscular Volume 88.1 Mean Corpuscular 26.7 L Hemoglobin Mean Corpuscular 30.3 L Hemoglobin Concent Red Cell Distribution 17.9 H Width Platelet Count 74 #L Mean Platelet Volume 12.8 H Immature Granulocytes % 0.900 H Neutrophils % 82.8 H Lymphocytes % 11.4 L Monocytes % 4.6 Eosinophils % 0.0 Basophils % 0.3 Nucleated Red Blood 0.3 H Cells % Immature Granulocytes # 0.060 H Neutrophils # 5.4 Lymphocytes # 0.8 Monocytes # 0.3 Eosinophils # 0.0 Basophils # 0.0 Nucleated Red Blood 0.0 Cells # Sodium Level 134 L Potassium Level 4.4 Chloride Level 95 L Carbon Dioxide Level 34 H Anion Gap 5 Blood Urea Nitrogen 83 H Creatinine 0.92 Est Glomerular Filtrat > 60 Rate mL/min Glucose Level 296 H Calcium Level 7.5 L Test 08/06/18 05:35 08/06/18 09:03 08/06/18 11:42 Bedside Glucose 292 H 309 H 346 H Medications Medication Current Medications IV Flush (NS 3 ml) 3 ml PER PROTOCOL IV ; Start 07/19/18 at 19:30 Ondansetron HCl (Zofran Inj) 4 mg Q6H PRN IV NAUSEA/VOMITING; Start 07/19/18 at 19:30 Morphine Sulfate (morphine) 2 mg Q4H PRN IV .PAIN 8-10 Last administered on 08/06/18 04:26; Admin Dose 2 MG; Start 07/19/18 at 19:30 Ferrous Sulfate (Ferrous Sulfate (Ec)) 325 mg DAILY PO Last administered on 08/06/18 09:05; Admin Dose 325 MG; Start 07/20/18 at 09:00; Stop 08/19/18 at 08:59 Nitroglycerin (Nitroglycerin (Sl Tab) 0.4 Mg) 1 tab [id number] PRN SL CHEST PAIN; Start 07/19/18 at 19:30 Miscellaneous Information (Pending [facility]yl Order For Wound Care) This patient pedro... PRN PRN XX WOUND CARE; Start 07/20/18 at 01:30 Lorazepam (Ativan) 0.5 mg Q6 PRN IV AGITATION/ANXIETY Last administered on 07/30/18 05:31; Admin Dose 0.5 MG; Start 07/22/18 at 17:00 Lansoprazole (Prevacid) 30 mg DAILY@06 GTB Last administered on 08/06/18 04:26; Admin Dose 30 MG; Start 07/25/18 at 06:00 Acetaminophen (Tylenol Tab) 650 mg Q6H PRN GTB .PAIN 1-3 OR TEMP Last administered on 08/05/18 20:57; Admin Dose 650 MG; Start 07/27/18 at 09:00 Acetaminophen (Tylenol Tab) 650 mg Q6H PRN GTB MILD TO MODERATE PAIN; Start 07/27/18 at 09:00 Ascorbic Acid (Vitamin C) 500 mg DAILY GTB Last administered on 08/06/18 09:05; Admin Dose 500 MG; Start 07/27/18 at 09:00 Atorvastatin Calcium (Lipitor) 20 mg QHS GTB Last administered on 08/05/18 20:57; Admin Dose 20 MG; Start 07/27/18 at 21:00 Duloxetine HCl (Cymbalta) 30 mg DAILY GTB Last administered on 08/06/18 09:05; Admin Dose 30 MG; Start 07/27/18 at 09:00 Gabapentin (Neurontin) 400 mg Q8 GTB Last administered on 08/06/18 13:17; Admin Dose 400 MG; Start 07/27/18 at 14:00 Isosorbide Dinitrate (Isordil) 10 mg TID GTB Last administered on 08/06/18 13:17; Admin Dose 10 MG; Start 07/27/18 at 09:00 Multivitamins (Multivitamin) 30 ml DAILY GTB Last administered on 08/06/18 09:02; Admin Dose 30 ML; Start 07/27/18 at 09:00 Ondansetron HCl (Zofran Tab) 4 mg Q4H PRN GTB NAUSEA AND/OR VOMITING; Start 07/27/18 at 09:00 Senna (Senokot) 1 tab BID GTB Last administered on 08/06/18 09:05; Admin Dose 1 TAB; Start 07/27/18 at 09:00 Tramadol HCl (Ultram) 50 mg Q6H PRN GTB PAIN LEVEL 4-7; Start 07/27/18 at 09:00 Miscellaneous Information 1 ea NOTE XX ; Start 07/27/18 at 09:00 Glucose (Glutose) 15 gm Q15M PRN PO DECREASED GLUCOSE; Start 07/27/18 at 09:00 Glucose (Glutose) 22.5 gm Q15M PRN PO DECREASED GLUCOSE; Start 07/27/18 at 09:00 Dextrose (D50w Syringe) 25 ml Q15M PRN IV DECREASED GLUCOSE; Start 07/27/18 at 09:00 Dextrose (D50w Syringe) 50 ml Q15M PRN IV DECREASED GLUCOSE; Start 07/27/18 at 09:00 Glucagon (Glucagen) 1 mg Q15M PRN IM DECREASED GLUCOSE; Start 07/27/18 at 09:00 Glucose (Glutose) 15 gm Q15M PRN BUCCAL DECREASED GLUCOSE; Start 07/27/18 at 09:00 Insulin Aspart (Novolog Insulin Pen) NOVOLOG *MODERATE* ALGORI... Q6 SC Last administered on 08/06/18at 11:49; Admin Dose 10 UNIT; Start 07/31/18 at 18:00 Alteplase, Recombinant (Cathflo (Activase)) 2 mg MAY REPEAT X1 PRN CATHETER IF CATHETER REMAINS OCCULUDED; Start 08/03/18 at 06:30 Metoprolol Tartrate (Lopressor) 5 mg Q4H PRN IV HR>110 Hold SBP<100; Start 08/03/18 at 15:30 Hydralazine HCl (Apresoline) 25 mg Q12 GTB Last administered on 08/06/18at 09:05; Admin Dose 25 MG; Start 08/04/18 at 21:00 Metoprolol Tartrate (Lopressor) 25 mg Q12 GTB Last administered on 08/06/18at 09:06; Admin Dose 25 MG; Start 08/04/18 at 21:00 Prednisone (Prednisone) 40 mg DAILY PO Last administered on 08/06/18 09:06; Admin Dose 40 MG; Start 08/05/18 at 09:00 Vancomycin HCl (Vanco Iv Per Pharmacy) VANCOMYCIN PER PHARMACY PER PROTOCOL XX ; Start 08/04/18 at 17:30 Meropenem/Sodium Chloride 50 ml @ 100 mls/hr Q12 IVPB Last administered on 08/06/18at 09:04; Admin Dose 100 MLS/HR; Start 08/04/18 at 21:00 Vancomycin/Sodium Chloride 250 ml @ 125 mls/hr Q72H IVPB ; Start 08/07/18 at 21:00 Furosemide (Lasix) 20 mg BID DIURETICS IV Last administered on 08/06/18 04:27; Admin Dose 20 MG; Start 08/05/18 at 18:00 Insulin Glargine (Lantus) 25 units BID SC ; Start 08/06/18 at 21:00 Insulin Human NPH (Humulin N) 24 unit DAILY@0900 SC ; Start 08/07/18 at 09:00 LIDYA DC August 06, 2018 14:25
--- NOTE | 2018-08-06 14:46 | CONS ---
Assessment/Plan Assessment/Plan Hospital Course (Demo Recall) #ITP -platelets ok, > 70K today -diagnosed during the last admission, he had response to steroids and bone marrow bx consistent with peripheral destruction -past labs reveal + TERESE, negative HIT ab -continue prednisone steroid taper. currently on prednisone 20mg -he is s/p IVIG 40 grams x 2 days and Decadron burst. -if patient does not respond will need to consider a course of Rituxan therapy, or other tx such as promacta or n plate Consultation Date/Type/Reason Admit Date/Time Jul 19, 2018 at 18:40 Initial Consult Date 07/24/18 Type of Consult hematology Reason for Consultation ITP Requesting Provider: LES TRENT Date/Time of Note DATE: 08/06/18 TIME: 14:43 24 HR Interval Summary Free Text/Dictation no bleeding . platelets continue to rise Exam/Review of Systems Exam Vitals Vital Signs Date Temp Pulse Resp B/P (MAP) Pulse Ox O2 O2 Flow FiO2 Time Delivery Rate 08/06/18 98 12:15 08/06/18 98.3 20 119/59 95 11:26 (79) 08/06/18 30 10:26 Intake and Output 08/05/18 08/05/18 08/06/18 1515:00 23:00 07:00 IntakeIntake Total 1100 ml 1015 ml OutputOutput Total 50 ml BalanceBalance 1050 ml 1015 ml Psych: confusion, depression Eyes: nl conjunctiva ENMT: nl external ears & nose Neck: other (trach in place) Respiratory: clear to auscultation Cardiovascular: regular rate and rhythm Gastrointestinal: soft Musculoskeletal: nl extremities to inspection Extremities: normal pulses Results Result Diagram: 08/06/18 0515 08/06/18 0515 Results 24hrs Laboratory Tests Test 08/05/18 17:29 08/05/18 20:54 08/05/18 23:52 08/06/18 05:15 Bedside Glucose 203 254 H 288 H White Blood Count 6.6 Red Blood Count 3.03 L Hemoglobin 8.1 L Hematocrit 26.7 L Mean Corpuscular Volume 88.1 Mean Corpuscular 26.7 L Hemoglobin Mean Corpuscular 30.3 L Hemoglobin Concent Red Cell Distribution 17.9 H Width Platelet Count 74 #L Mean Platelet Volume 12.8 H Immature Granulocytes % 0.900 H Neutrophils % 82.8 H Lymphocytes % 11.4 L Monocytes % 4.6 Eosinophils % 0.0 Basophils % 0.3 Nucleated Red Blood 0.3 H Cells % Immature Granulocytes # 0.060 H Neutrophils # 5.4 Lymphocytes # 0.8 Monocytes # 0.3 Eosinophils # 0.0 Basophils # 0.0 Nucleated Red Blood 0.0 Cells # Sodium Level 134 L Potassium Level 4.4 Chloride Level 95 L Carbon Dioxide Level 34 H Anion Gap 5 Blood Urea Nitrogen 83 H Creatinine 0.92 Est Glomerular Filtrat > 60 Rate mL/min Glucose Level 296 H Calcium Level 7.5 L Test 08/06/18 05:35 08/06/18 09:03 08/06/18 11:42 Bedside Glucose 292 H 309 H 346 H Medications Medication Current Medications IV Flush (NS 3 ml) 3 ml PER PROTOCOL IV ; Start 07/19/18 at 19:30 Ondansetron HCl (Zofran Inj) 4 mg Q6H PRN IV NAUSEA/VOMITING; Start 07/19/18 at 19:30 Morphine Sulfate (morphine) 2 mg Q4H PRN IV .PAIN 8-10 Last administered on 08/06/18at 04:26; Admin Dose 2 MG; Start 07/19/18 at 19:30 Ferrous Sulfate (Ferrous Sulfate (Ec)) 325 mg DAILY PO Last administered on 08/06/18at 09:05; Admin Dose 325 MG; Start 07/20/18 at 09:00; Stop 08/19/18 at 08:59 Nitroglycerin (Nitroglycerin (Sl Tab) 0.4 Mg) 1 tab [id number] PRN SL CHEST PAIN; Start 07/19/18 at 19:30 Miscellaneous Information [facility] This patient pedro... PRN PRN XX WOUND CARE; Start 07/20/18 at 01:30 Lorazepam (Ativan) 0.5 mg Q6 PRN IV AGITATION/ANXIETY Last administered on 07/30/18at 05:31; Admin Dose 0.5 MG; Start 07/22/18 at 17:00 Lansoprazole (Prevacid) 30 mg DAILY@06 GTB Last administered on 08/06/18 04:26; Admin Dose 30 MG; Start 07/25/18 at 06:00 Acetaminophen (Tylenol Tab) 650 mg Q6H PRN GTB .PAIN 1-3 OR TEMP Last administered on 08/05/18 20:57; Admin Dose 650 MG; Start 07/27/18 at 09:00 Acetaminophen (Tylenol Tab) 650 mg Q6H PRN GTB MILD TO MODERATE PAIN; Start 07/27/18 at 09:00 Ascorbic Acid (Vitamin C) 500 mg DAILY GTB Last administered on 08/06/18 09:05; Admin Dose 500 MG; Start 07/27/18 at 09:00 Atorvastatin Calcium (Lipitor) 20 mg QHS GTB Last administered on 08/05/18 20:57; Admin Dose 20 MG; Start 07/27/18 at 21:00 Duloxetine HCl (Cymbalta) 30 mg DAILY GTB Last administered on 08/06/18 09:05; Admin Dose 30 MG; Start 07/27/18 at 09:00 Gabapentin (Neurontin) 400 mg Q8 GTB Last administered on 08/06/18 13:17; Admin Dose 400 MG; Start 07/27/18 at 14:00 Isosorbide Dinitrate (Isordil) 10 mg TID GTB Last administered on 08/06/18 13:17; Admin Dose 10 MG; Start 07/27/18 at 09:00 Multivitamins (Multivitamin) 30 ml DAILY GTB Last administered on 08/06/18 0 9:02; Admin Dose 30 ML; Start 07/27/18 at 09:00 Ondansetron HCl (Zofran Tab) 4 mg Q4H PRN GTB NAUSEA AND/OR VOMITING; Start 07/27/18 at 09:00 Senna (Senokot) 1 tab BID GTB Last administered on 08/06/18 09:05; Admin Dose 1 TAB; Start 07/27/18 at 09:00 Tramadol HCl (Ultram) 50 mg Q6H PRN GTB PAIN LEVEL 4-7; Start 07/27/18 at 09:00 Miscellaneous Information 1 ea NOTE XX ; Start 07/27/18 at 09:00 Glucose (Glutose) 15 gm Q15M PRN PO DECREASED GLUCOSE; Start 07/27/18 at 09:00 Glucose (Glutose) 22.5 gm Q15M PRN PO DECREASED GLUCOSE; Start 07/27/18 at 09:00 Dextrose (D50w Syringe) 25 ml Q15M PRN IV DECREASED GLUCOSE; Start 07/27/18 at 09:00 Dextrose (D50w Syringe) 50 ml Q15M PRN IV DECREASED GLUCOSE; Start 07/27/18 at 09:00 Glucagon (Glucagen) 1 mg Q15M PRN IM DECREASED GLUCOSE; Start 07/27/18 at 09:00 Glucose (Glutose) 15 gm Q15M PRN BUCCAL DECREASED GLUCOSE; Start 07/27/18 at 09:00 Insulin Aspart (Novolog Insulin Pen) NOVOLOG *MODERATE* ALGORI... Q6 SC Last administered on 08/06/18at 11:49; Admin Dose 10 UNIT; Start 07/31/18 at 18:00 Alteplase, Recombinant (Cathflo (Activase)) 2 mg MAY REPEAT X1 PRN CATHETER IF CATHETER REMAINS OCCULUDED; Start 08/03/18 at 06:30 Metoprolol Tartrate (Lopressor) 5 mg Q4H PRN IV HR>110 Hold SBP<100; Start 08/03/18 at 15:30 Hydralazine HCl (Apresoline) 25 mg Q12 GTB Last administered on 08/06/18at 09:05; Admin Dose 25 MG; Start 08/04/18 at 21:00 Metoprolol Tartrate (Lopressor) 25 mg Q12 GTB Last administered on 08/06/18at 09:06; Admin Dose 25 MG; Start 08/04/18 at 21:00 Prednisone (Prednisone) 40 mg DAILY PO Last administered on 08/06/18at 09:06; Ad min Dose 40 MG; Start 08/05/18 at 09:00 Vancomycin HCl (Vanco Iv Per Pharmacy) VANCOMYCIN PER PHARMACY PER PROTOCOL XX ; Start 08/04/18 at 17:30 Meropenem/Sodium Chloride 50 ml @ 100 mls/hr Q12 IVPB Last administered on 08/06/18at 09:04; Admin Dose 100 MLS/HR; Start 08/04/18 at 21:00 Vancomycin/Sodium Chloride 250 ml @ 125 mls/hr Q72H IVPB ; Start 08/07/18 at 21:00 Furosemide (Lasix) 20 mg BID DIURETICS IV Last administered on 08/06/18at 04:27; Admin Dose 20 MG; Start 08/05/18 at 18:00 Insulin Glargine (Lantus) 25 units BID SC ; Start 08/06/18 at 21:00 Insulin Human NPH (Humulin N) 24 unit DAILY@0900 SC ; Start 08/07/18 at 09:00 DANIELA RAPP M.D. August 06, 2018 14:46
[2018-08-06] MEDS: ATORVASTATIN 20 MG TAB GTB SCH (20:09)
[2018-08-06] MEDS ORDERED: INSULIN GLARGINE [LANTus] (100 UNITS/ML) SYG SC SCH (21:00)
[2018-08-07] MEDS ORDERED: NPH, HUMAN INSULIN ISOPHANE 3ML VIAL SC SCH (09:00)
[2018-08-07] MEDS ORDERED: VANCOMYCIN 750 MG (PMX) 250 ML IVPB SCH (21:00)
--- NOTE | 2018-08-09 22:35 | DS ---
Date/Time of Note Date/Time of Note DATE: 08/09/18 TIME: 22:32 Discharge Summary Admission/Discharge Info Admit Date/Time Jul 19, 2018 at 18:40 Discharge Date/Time August 06, 2018 at 22:42 Patient Condition: Stable Hx of Present Illness Patient with coronary artery disease, s/p bilateral below knee amputation, respiratory failure was previously at [facility] but then transferred to [facility] for care of his respiratory failure. Patient was noted to have worsening thrombocytopenia and so is transferred back for further treatment of his thrombocytopenia. Patient is asymptomatic at this time. Hospital Course Patient transferred to [facility]. Assessment/Plan -Fever, continue antibiotics per ID,f/up on cx. Dr. Wong following in infection disease consultation. 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 Pt continued on Prednisone. Dr. Inman is following in hematology consultation. -Anemia, monitor H&H. -VDRF with tracheostomy -Hx of Atrial fibrillation and atrial flutter. Continue metoprolol, unable to tolerate anticoagulation due to severe thrombocytopenia. -Cardiomyopathy with ejection fraction of 40% -Diabetes mellitus. Continue Lantus and NovoLog. 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 -Hx of Stage III sacral decubitus ulcer Plan of care discussed with Dr. Villatoro. Home Meds Reported Medications Tramadol HCl (Tramadol HCl) 50 Mg Tablet, 50 MG PO Q6H PRN for PAIN LEVEL 7-10, #120 TAB 06/23/18 Hydralazine Hcl* (Hydralazine Hcl*) 50 Mg Tab, 50 MG PO Q8 for hypertension, #90 TAB 06/23/18 Gabapentin* (Neurontin*) 400 Mg Capsule, 400 MG PO Q8, #90 CAP 06/23/18 Insulin Isophan/Regular (Humulin 70/30) 100 Units/Ml Susp, 18 UNIT SC Q8, EA 06/23/18 Omeprazole* (Omeprazole*) 40 Mg Capsule., 40 MG PO DAILY, #30 CAP 06/23/18 Metoprolol Tartrate* (Lopressor*) 50 Mg Tab, 50 MG PO Q8, #60 TAB 06/23/18 Atorvastatin Calcium* (Atorvastatin Calcium*) 20 Mg Tablet, 20 MG PO QHS, #30 TAB 06/23/18 Ondansetron Hcl* (Ondansetron Hcl*) 4 Mg Tablet, 4 MG PO Q4H PRN for NAUSEA AND OR VOMITING, TAB 11/11/17 Budesonide-Formoterol Fumarate* (Symbicort*) 160-4.5 Hfa.aer.ad, 1 PUFF INHALATION BID, #1 EACH 11/11/17 Sennosides* (Senna Lax*) 8.6 Mg Tablet, 1 TAB PO BID, TAB 11/11/17 Multivitamins* (Theragran*) 1 Tab Tab, 1 TAB PO DAILY, TAB 11/11/17 Isosorbide Dinitrate* (Isosorbide Dinitrate*) 10 Mg Tablet, 10 MG PO TID, TAB 11/11/17 Ascorbic Acid* (Vitamin C*) 500 Mg Capsule.sa, 500 MG PO DAILY, CAP 11/11/17 Pantoprazole* (Protonix*) 40 Mg Tablet.dr, 40 MG PO AC BREAKFAST, TAB 08/07/17 Apixaban* (Eliquis*) 5 Mg Tablet, 5 MG PO BID, TAB 08/07/17 Nitroglycerin* (Nitrostat*) 0.4 Mg Tab.subl, 0.4 MG SL Q5MIN PRN for CHEST PAIN, BOTTLE 05/19/17 Duloxetine Hcl* (Cymbalta*) 30 Mg Capsule.dr, 30 MG PO DAILY, CAP 05/19/17 Acetaminophen* (Acetaminophen*) 650 Mg Tablet, 650 MG PO Q6H PRN for MILD TO MODERATE PAIN, #30 TAB 03/18/17 Alprazolam* (Alprazolam*) 0.25 Mg Tablet, 0.25 MG PO TID PRN for ANXIETY, TAB 03/18/17 Ferrous Sulfate* (Ferrous Sulfate*) 325 Mg Tabec, 325 MG PO DAILY, TAB 03/18/17 Primary Care Provider Roberto Villatoro MD Time spent on discharge: > 30 minutes LIDYA DC August 09, 2018 22:35
== END 2018-08-06 22:42 | disposition short-term general hospital (02) | DRG 813 ==
LOC: 6WM 18:40
PROVIDERS: ADMIT Internal Medicine; ATTEND Internal Medicine
PROC: 5A1955Z Respiratory Ventilation, Greater than 96 Consecutive Hours (ICD-10-PCS; principal; 2018-07-19)
PROC: 30233N1 Transfusion of Nonautologous Red Blood Cells into Peripheral Vein, Percutaneous Approach (ICD-10-PCS; 2018-08-01)
DX: D69.3 Immune thrombocytopenic purpura (principal); E87.3 Alkalosis; I48.92 Unspecified atrial flutter; Z99.11 Dependence on respirator [ventilator] status; J90 Pleural effusion, not elsewhere classified; Z68.42 Body mass index [BMI] 45.0-49.9, adult; I42.9 Cardiomyopathy, unspecified; J96.10 Chronic respiratory failure, unspecified whether with hypoxia or hypercapnia; I25.10 Atherosclerotic heart disease of native coronary artery without angina pectoris; R13.10 Dysphagia, unspecified; I48.0 Paroxysmal atrial fibrillation; E78.00 Pure hypercholesterolemia, unspecified; I10 Essential (primary) hypertension; Z95.0 Presence of cardiac pacemaker; E78.5 Hyperlipidemia, unspecified; D64.9 Anemia, unspecified; E87.5 Hyperkalemia; E66.01 Morbid (severe) obesity due to excess calories; F32.9 Major depressive disorder, single episode, unspecified; Z89.512 Acquired absence of left leg below knee; Z89.511 Acquired absence of right leg below knee; Z95.1 Presence of aortocoronary bypass graft; Z93.0 Tracheostomy status; Z93.1 Gastrostomy status; Z95.3 Presence of xenogenic heart valve; Z93.3 Colostomy status; Z79.4 Long term (current) use of insulin; E11.65 Type 2 diabetes mellitus with hyperglycemia; R50.9 Fever, unspecified
CPT/HCPCS: 36430; 36600; 70450; 71045; 80048; 80053; 81001; 82803; 82962; 83036; 83735; 84100; 85025; 85610; 85730; 86850; 86900; 86901; 86920; 87075; 92526; 92610; 93970; 94002; 94003; A4310; J1100; J1200; J1459; J1815; J1940; J2060; J2185; J2270; J3370; J7030; J7040; J7050; J7512; P9016

== ENCOUNTER 2018-10-28 18:09 | Inpatient (IN) | payer MEDICARE, MEDICAID ==
[~2018-10-28] VITALS: Ht 144.8 cm; Wt 86.4 kg
--- NOTE | 2018-10-28 19:45 | ERD ---
ER Documentation Chief Complaint Chief Complaint BIB PRIVATE AMBULANCE FROM [facility]; C/O ABNORMAL LABS HPI 68-year-old male trach and vent dependent with a history of CAD, CKD, CHF with pacemaker brought in by ambulance from his alf facility per the request of his primary care doctor, Dr. Villatoro, for abnormal labs. Patient is unable to provide a history as he has chronic encephalopathy. Reportedly his BUN was 128 on labs done yesterday and creatinine was 3.5. ROS Unable to obtain due to chronic encephalopathy Medications Home Meds Reported Medications Tramadol HCl (Tramadol HCl) 50 Mg Tablet, 50 MG PO Q6H PRN for PAIN LEVEL 7-10, #120 TAB 06/23/18 Hydralazine Hcl* (Hydralazine Hcl*) 50 Mg Tab, 50 MG PO Q8 for hypertension, #90 TAB 06/23/18 Gabapentin* (Neurontin*) 400 Mg Capsule, 400 MG PO Q8, #90 CAP 06/23/18 Insulin Isophan/Regular (Humulin 70/30) 100 Units/Ml Susp, 18 UNIT SC Q8, EA 06/23/18 Omeprazole* (Omeprazole*) 40 Mg Capsule.dr, 40 MG PO DAILY, #30 CAP 06/23/18 Metoprolol Tartrate* (Lopressor*) 50 Mg Tab, 50 MG PO Q8, #60 TAB 06/23/18 Atorvastatin Calcium* (Atorvastatin Calcium*) 20 Mg Tablet, 20 MG PO QHS, #30 TA B 06/23/18 Ondansetron Hcl* (Ondansetron Hcl*) 4 Mg Tablet, 4 MG PO Q4H PRN for NAUSEA AND OR VOMITING, TAB 11/11/17 Budesonide-Formoterol Fumarate* (Symbicort*) 160-4.5 Hfa.aer.ad, 1 PUFF INHALATION BID, #1 EACH 11/11/17 Sennosides* (Senna Lax*) 8.6 Mg Tablet, 1 TAB PO BID, TAB 11/11/17 Multivitamins* (Theragran*) 1 Tab Tab, 1 TAB PO DAILY, TAB 11/11/17 Isosorbide Dinitrate* (Isosorbide Dinitrate*) 10 Mg Tablet, 10 MG PO TID, TAB 11/11/17 Ascorbic Acid* (Vitamin C*) 500 Mg Capsule.sa, 500 MG PO DAILY, CAP 11/11/17 Pantoprazole* (Protonix*) 40 Mg Tablet.dr, 40 MG PO AC BREAKFAST, TAB 08/07/17 Apixaban* (Eliquis*) 5 Mg Tablet, 5 MG PO BID, TAB 08/07/17 Nitroglycerin* (Nitrostat*) 0.4 Mg Tab.subl, 0.4 MG SL Q5MIN PRN for CHEST PAIN, BOTTLE 05/19/17 Duloxetine Hcl* (Cymbalta*) 30 Mg Capsule.dr, 30 MG PO DAILY, CAP 05/19/17 Acetaminophen* (Acetaminophen*) 650 Mg Tablet, 650 MG PO Q6H PRN for MILD TO MODERATE PAIN, #30 TAB 03/18/17 Alprazolam* (Alprazolam*) 0.25 Mg Tablet, 0.25 MG PO TID PRN for ANXIETY, TAB 03/18/17 Ferrous Sulfate* (Ferrous Sulfate*) 325 Mg Tabec, 325 MG PO DAILY, TAB 03/18/17 Allergies Allergies: Coded Allergies: ciprofloxacin (Verified Allergy, Mild, ITCHINESS, RASH , 07/30/18) Penicillins (Verified Allergy, Unknown, 07/30/18) garlic (Verified Allergy, Unknown, 07/30/18) STOMACH UPSET linagliptin (Verified Allergy, Unknown, pancreatitis, 07/30/18) morphine (Verified Allergy, Unknown, 07/30/18) povidone-iodine (Verified Allergy, Unknown, RASH, 07/30/18) soap (Verified Allergy, Unknown, RASH, 07/30/18) PMhx/Soc Medical and Surgical Hx: Unable to obtain History of Surgery: Yes (Bilateral below the knee amputations, tracheostomy, pacemaker, gastrostomy) Anesthesia Reaction: No Hx Neurological Disorder: Yes ( spina bifida, seizure disorder, CVA) Hx Respiratory Disorders: Yes Hx Cardiac Disorders: Yes (CAD, CHF, hypertension) Hx Psychiatric Problems: No Hx Miscellaneous Medical Probl: Yes (Diabetes) Hx Alcohol Use: No Hx Substance Use: No Hx Tobacco Use: No Smoking Status: Never smoker FmHx Unable to obtain Physical Exam Vitals Vital Signs Date Temp Pulse Resp B/P (MAP) Pulse Ox O2 O2 Flow FiO2 Time Delivery Rate 10/28/18 60 16 108/61 94 Mechanical 19:31 (77) Ventilator 10/28/18 99.1 60 14 111/61 95 19:00 (78) 10/28/18 72 17 97 35 18:27 Physical Exam INITIAL VITAL SIGNS: Reviewed by me GENERAL: Patient is lying on gurney, sleeping, chronically ill-appearing HEAD: Normocephalic EYES: Lids, lashes, and conjunctiva clear. ENT: Mucous membranes dry NECK: Trach in place, on vent RESPIRATORY: Rhonchi bilaterally CV: Regular rate and rhythm. No murmurs, No rubs or gallops. ABDOMEN: Place. Soft, non-distended No guarding. No rebound. No pulsatile mass. Bowel sounds normal. BACK: Non-tender. No CVA tenderness. EXTREMITIES: Bilateral BKA. Peripheral edema in bilateral upper extremities 1+. SKIN: Warm and dry. Decreased turgor. No obvious rash, petechiae or purpura. NEUROLOGIC: Sleeping, not responsive to painful stimuli. Result Diagram: 10/28/18190410/28/181904 Results 24 hrs Laboratory Tests Test 10/28/18 19:05 10/28/18 19:10 White Blood Count 13.4 10^3/ul Red Blood Count 2.94 10^6/ul Hemoglobin 7.5 g/dl Hematocrit 24.6 % Mean Corpuscular Volume 83.7 fl Mean Corpuscular Hemoglobin 25.5 pg Mean Corpuscular Hemoglobin Concent 30.5 g/dl Red Cell Distribution Width 17.9 % Platelet Count 186 10^3/UL Mean Platelet Volume 10.9 fl Immature Granulocytes % 0.800 % Neutrophils % 89.7 % Lymphocytes % 4.0 % Monocytes % 5.2 % Eosinophils % 0.2 % Basophils % 0.1 % Nucleated Red Blood Cells % 0.0 /100WBC Immature Granulocytes # 0.110 10^3/ul Neutrophils # 12.0 10^3/ul Lymphocytes # 0.5 10^3/ul Monocytes # 0.7 10^3/ul Eosinophils # 0.0 10^3/ul Basophils # 0.0 10^3/ul Nucleated Red Blood Cells # 0.0 10^3/ul Sodium Level 121 mmol/L Potassium Level 3.6 mmol/L Chloride Level 76 mmol/L Carbon Dioxide Level 33 mmol/L Anion Gap 12 Blood Urea Nitrogen 135 mg/dl Creatinine 3.91 mg/dl Est Glomerular Filtrat Rate mL/min 15 mL/min Glucose Level 189 mg/dl Calcium Level 7.8 mg/dl Urine Color POWER Urine Clarity TURBID Urine pH 5.0 Urine Specific [place] 1.020 Urine Ketones NEGATIVE mg/dL Urine Nitrite NEGATIVE mg/dL Urine Bilirubin NEGATIVE mg/dL Urine Urobilinogen NEGATIVE mg/dL Urine Leukocyte Esterase 2+ Alina/ul Urine Microscopic RBC 17 /HPF Urine Microscopic WBC > 182 /HPF Urine Squamous Epithelial Cells MODERATE /HPF Urine Bacteria MODERATE /HPF Urine Mucus FEW /HPF Urine Hemoglobin 1+ mg/dL Urine Glucose NEGATIVE mg/dL Urine Total Protein 2+ mg/dl Current Medications Medications Dose Sig/Swathi Start Time Status Last (Trade) Ordered Route PRN Stop Time Admin Dose Reason Admin Ondansetron 4 mg ER BRIDGE 10/28/18 HCl (Zofran PRN IV 20:00 Inj) NAUSEA/VOMITI 10/29/18 19:59 NG 650 mg ER BRIDGE 10/28/18 Acetaminophen PRN PO 20:00 (Tylenol .MILD PAIN 10/29/18 19:59 Tab) 1-3 OR TEMP Cefepime HCl 50 ml @ ONCE ONCE 10/28/18 100 mls/hr IVPB 20:30 10/28/18 20:59 Procedures/MDM EMERGENT LABS AND DIAGNOSTIC STUDIES: Lab Results above were reviewed and interpreted by me. CBC: Leukocytosis, unclear etiology. Chronic anemia. BMP: Hyponatremia, hypochloremia, elevated BUN and creatinine, consistent with acute on chronic renal failure. UA: evidence of infection 12-lead EKG was interpreted by Callie Carbajal MD: V paced at [address] or T wave changes suggestive of acute ischemia or STEMI. Initial Nursing notes reviewed. Previous Medical Records requested via the Electronic Health Record. EMERGENCY DEPARTMENT COURSE / MEDICAL DECISION MAKING: Patient is presenting with worsening renal insufficiency and uremia. Vitals are stable. He does have evidence of UTI for which antibiotics have been given. No evidence of sepsis at this time. Blood cultures have been collected. IV fluids started. Discussed with admitting doctor and he agreed to admission to telemetry. Critical Care Time: 35 minutes Treatments/Evaluations: Close monitoring and treatment of unstable vital signs, cardiorespiratory, and neurologic status, while maintaining tight balance of fluid, respiratory, and cardiac interventions. This time includes discussing the case with the patient and the patients family. This time does not include all procedures stated elsewhere in this record. This time also includes reviewing old records, labs and radiological studies. This time includes examining and re-examining the patient. Additionally, this time also includes arranging care with admitting and consulting physicians. Accepting Care Team: Current data and ongoing care discussed. Time: Time of admission Primary Provider: Dr. Liberty Fofana Departure Diagnosis: Primary Impression: Acute kidney injury superimposed on chronic kidney disease Additional Impressions: Uremia Hyponatremia UTI (urinary tract infection) Urinary tract infection type: catheter-associated UTI Indwelling urinary catheter type: indwelling urethral catheter Encounter type: initial encounter Qualified Codes: T83.511A - Infection and inflammatory reaction due to indwelling urethral catheter, initial encounter; N39.0 - Urinary tract infection, site not specified Condition: Serious FRANCISCA CARBAJAL MD Oct 28, 2018 19:45
[2018-10-28] MEDS ORDERED: ONDANSETRON 4 MG INJ IV PRN ×2 (20:00→20:30)
[2018-10-28] MEDS ORDERED: ACETAMINOPHEN 325 MG TAB PO PRN ×2 (20:00→20:30)
[2018-10-28] MEDS ORDERED: ONDANSETRON 4 MG TAB PO PRN (20:30)
[2018-10-28] MEDS ORDERED: traMADol 50 MG TAB PO PRN (20:30)
[2018-10-28] MEDS ORDERED: morphine 2 MG INJ IV PRN (20:30)
[2018-10-28] MEDS ORDERED: ALPRAZOLAM 0.25 MG TAB PO PRN (20:30)
[2018-10-28] MEDS ORDERED: NACL 0.9% 3 ML SYG IV SCH (20:30)
[2018-10-28] MEDS ORDERED: CEFEPIME 2GM/50 ML (PMX) 50 ML IVPB ONE (20:30)
[2018-10-28] MEDS ORDERED: NITROGLYCERIN (SL) 0.4 MG TAB SL PRN (20:30)
[2018-10-28] MEDS ORDERED: FAMOTIDINE 20 MG INJ IV SCH (21:00)
[2018-10-29] VITALS (17 sets, daily range): BP systolic 97–112; BP diastolic 42–62; PULSE 59–68; RESP 14–22; Ht 144.8 cm; Wt 86.4 kg
[2018-10-29] MEDS: ISOSORBIDE DINITRATE 10 MG TAB PO SCH ×4 (04:34→21:00)
[2018-10-29] MEDS: GABAPENTIN 400 MG CAP PO SCH ×4 (04:35→21:24)
[2018-10-29] MEDS: ATORVASTATIN 20 MG TAB PO SCH ×2 (04:35→21:23)
[2018-10-29] MEDS: SENNA TAB PO SCH ×3 (04:36→21:23)
[2018-10-29] MEDS: METOPROLOL 50 MG TAB PO SCH ×4 (04:36→22:00)
[2018-10-29] MEDS ORDERED: ASCORBIC ACID 500 MG TAB PO SCH (09:00)
[2018-10-29] MEDS ORDERED: MULTIVITAMINS THERAPEUTIC TAB PO SCH (09:00)
[2018-10-29] MEDS: DULOXETINE 30 MG CAP DR PO SCH (09:06)
[2018-10-29] MEDS: FERROUS SULFATE (EC) 325 MG TAB PO SCH (09:06)
[2018-10-29] MEDS: PANTOPRAZOLE (EC) 40 MG TAB PO SCH (09:07)
--- NOTE | 2018-10-29 10:07 | HP ---
Date/Time of Note Date/Time of Note DATE: 10/29/18 TIME: 10:05 Assessment/Plan VTE Prophylaxis Risk score (from Ns)>0 risk: 6 SCD applied (from Ns): Yes Pharmacological prophylaxis: LMWH Lines/Catheters IV [facility]ter [facility] (from [facility]): Peripheral IV Urinary Cath still in place: Yes Reason Cath still needed: skin wounds contaminated by urine Assessment/Plan Hospital Course 1) Worsening renal failure - consult nephrology 2) respiratory failure - on trach, is stable 3) coronary artery disease - no evidence of acute exacerbation Result Diagram: 10/29/1831 10/29/1831 Results 24hrs Laboratory Tests Test 10/28/18 19:05 10/28/18 19:10 10/29/18 06:31 10/29/18 07:41 White Blood Count 13.4 #H 12.1 H Red Blood Count 2.94 L 2.98 L Hemoglobin 7.5 L 7.7 L Hematocrit 24.6 L 25.0 L Mean Corpuscular 83.7 83.9 Volume Mean Corpuscular 25.5 L 25.8 L Hemoglobin Mean Corpuscular 30.5 L 30.8 L Hemoglobin Concent Red Cell 17.9 H 17.7 H Distribution Width Platelet Count 186 # 185 Mean Platelet Volume 10.9 H 11.5 H Immature 0.800 H 0.900 H Granulocytes % Neutrophils % 89.7 H 84.5 H Lymphocytes % 4.0 L 5.8 L Monocytes % 5.2 7.8 Eosinophils % 0.2 0.8 Basophils % 0.1 0.2 Nucleated Red Blood 0.0 0.2 H Cells % Immature 0.110 H 0.110 H Granulocytes # Neutrophils # 12.0 H 10.2 H Lymphocytes # 0.5 L 0.7 L Monocytes # 0.7 1.0 H Eosinophils # 0.0 0.1 Basophils # 0.0 0.0 Nucleated Red Blood 0.0 0.0 Cells # Sodium Level 121 L 121 L Potassium Level 3.6 3.7 Chloride Level 76 L 80 L Carbon Dioxide Level 33 H 29 Anion Gap 12 12 Blood Urea Nitrogen 135 H 143 H Creatinine 3.91 H 3.70 H Est Glomerular 15 L 17 L Filtrat Rate mL/min Glucose Level 189 114 # Calcium Level 7.8 L 7.5 L Urine Color POWER Urine Clarity TURBID A Urine pH 5.0 Urine Specific 1.020 [place] Urine Ketones NEGATIVE Urine Nitrite NEGATIVE Urine Bilirubin NEGATIVE Urine Urobilinogen NEGATIVE Urine Leukocyte 2+ H Esterase Urine Microscopic 17 H RBC Urine Microscopic > 182 H WBC Urine Squamous MODERATE Epithelial Cells Urine Bacteria MODERATE Urine Mucus FEW A Urine Hemoglobin 1+ H Urine Glucose NEGATIVE Urine Total Protein 2+ H Hemoglobin A1c 6.5 H Total Bilirubin 0.3 Direct Bilirubin 0.00 Indirect Bilirubin 0.3 Aspartate Amino 97 H Transf (AST/SGOT) Alanine 50 Aminotransferase (AL T/SGPT) Alkaline Phosphatase 148 H Total Protein 8.1 Albumin 2.8 L Globulin 5.30 H Albumin/Globulin 0.52 Ratio Bedside Glucose 145 HPI/ROS Admit Date/Time Admit Date/Time Oct 28, 2018 at 19:52 Hx of Present Illness Patient with diabetes, bilateral below knee amputations, respiratory failure comes from subacute because labs show elevating BUN/Cr. Patient was transferred to the ER and admitted for further evaluation and treatment for renal failure. PMH/Family/Social Past Medical History Respirator failure Medical History: coronary artery disease, diabetes Medications Current Medications Ondansetron HCl (Zofran Inj) 4 mg ER BRIDGE PRN IV NAUSEA/VOMITING; Start 10/28/18 at 20:00; Stop 10/29/18 at 19:59 IV Flush (NS 3 ml) 3 ml PER PROTOCOL IV ; Start 10/28/18 at 20:30 Ondansetron HCl (Zofran Inj) 4 mg Q6H PRN IV NAUSEA/VOMITING; Start 10/28/18 at 20:30 Acetaminophen (Tylenol Tab) 650 mg Q6H PRN PO .PAIN 1-3 OR TEMP; Start 10/28/18 at 20:30 Morphine Sulfate (morphine) 2 mg Q4H PRN IV .PAIN 7-10; Start 10/28/18 at 20:30 Enoxaparin Sodium (Lovenox) 30 mg DAILY SC ; Start 10/29/18 at 09:00 Alprazolam (Xanax) 0.25 mg TID PRN PO ANXIETY; Start 10/28/18 at 20:30 Ascorbic Acid (Vitamin C) 500 mg DAILY PO Last administered on 10/29/18at 09:07; Admin Dose 500 MG; Start 10/29/18 at 09:00 Atorvastatin Calcium (Lipitor) 20 mg QHS PO Last administered on 10/29/18 04:35; Admin Dose 20 MG; Start 10/28/18 at 21:00 Duloxetine HCl (Cymbalta) 30 mg DAILY PO Last administered on 10/29/18 09:06; Admin Dose 30 MG; Start 10/29/18 at 09:00 Ferrous Sulfate (Ferrous Sulfate (Ec)) 325 mg DAILY PO Last administered on 10/29/18 09:06; Admin Dose 325 MG; Start 10/29/18 at 09:00 Gabapentin (Neurontin) 400 mg Q8 PO Last administered on 10/29/18 04:35; Admin Dose 400 MG; Start 10/28/18 at 22:00 Hydralazine HCl (Apresoline) 50 mg Q8 PO Last administered on 10/29/18 04:34; Admin Dose 50 MG; Start 10/28/18 at 22:00 Isosorbide Dinitrate (Isordil) 10 mg TID PO Last administered on 10/29/18 09:08; Admin Dose 10 MG; Start 10/28/18 at 21:00 Metoprolol Tartrate (Lopressor) 50 mg Q8 PO Last administered on 10/29/18 04:36; Admin Dose 50 MG; Start 10/28/18 at 22:00 Multivitamins Therapeutic (Theragran) 1 tab DAILY PO Last administered on 10/29/18 09:08; Admin Dose 1 TAB; Start 10/29/18 at 09:00 Nitroglycerin (Nitroglycerin (Sl Tab) 0.4 Mg) 1 tab [id number] PRN SL CHEST PAIN; Start 10/28/18 at 20:30 Ondansetron HCl (Zofran Tab) 4 mg Q4H PRN PO NAUSEA AND/OR VOMITING; Start 10/28/18 at 20:30 Pantoprazole (Protonix Tab) 40 mg AC BREAKFAST PO Last administered on 10/29/18 09:07; Admin Dose 40 MG; Start 10/29/18 at 07:00 Senna (Senokot) 1 tab BID PO Last administered on 10/29/18 09:07; Admin Dose 1 TAB; Start 10/28/18 at 21:00 Tramadol HCl (Ultram) 50 mg Q6H PRN PO PAIN LEVEL 7-10; Start 10/28/18 at 20:30 Coded Allergies: ciprofloxacin (Verified Allergy, Mild, ITCHINESS, RASH , 07/30/18) Penicillins (Verified Allergy, Unknown, 07/30/18) garlic (Verified Allergy, Unknown, 07/30/18) STOMACH UPSET linagliptin (Verified Allergy, Unknown, pancreatitis, 07/30/18) morphine (Verified Allergy, Unknown, 07/30/18) povidone-iodine (Verified Allergy, Unknown, RASH, 07/30/18) soap (Verified Allergy, Unknown, RASH, 07/30/18) Past Surgical History Past Surgical Hx: coronary bypass surgery, other Family History Significant Family History: diabetes, hypertension Social History Smoking Status: Never smoker Exam/Review of Systems Vital Signs Vitals Vital Signs Date Temp Pulse Resp B/P (MAP) Pulse Ox O2 O2 Flow FiO2 Time Delivery Rate 10/29/18 60 14 98 30 06:00 10/29/18 97.8 112/58 04:12 (76) 10/29/18 Mechanical 01:25 Ventilator Exam Constitutional: well developed Head: normocephalic, atraumatic Neck: supple Respiratory: diminished breath sounds Cardiovascular: regular rate and rhythm Gastrointestinal: soft, non-tender Extremities: normal pulses JACKIE SHAVER Oct 29, 2018 10:07
[2018-10-29] MEDS: ENOXAPARIN 30 MG/0.3 ML SYG SC SCH (10:10)
--- NOTE | 2018-10-29 10:10 | CONS ---
Assessment/Plan Assessment/Plan Assessment/Plan (Daily) 1. CR on CKD with BUN 135 on admission 3. Severe Hyponatremia 3. H/o HTN 6. VDRF s/p Tracheostomy 7. Dysphagia S/p G tube 8. H/o CAD s/p CABG 9. H/O HL Plan: BP runs on low side, Decreas dose of MTP to 25 mg BID, hydralazine to 25 mg pO BID with holding parameters IV abx cefepime, renally dose all abx Dietary consult to get TF renal friendly IV albumin 25% 100ml Q 8 hr x 6 doses Thanks for consultation, I will continue to follow up Consultation Date/Type/Reason Admit Date/Time Oct 28, 2018 at 19:52 Date of Consultation: Oct 29, 2018 Type of Consult NEPHROLOGY Reason for Consultation Acute on chronic renal failure,Hyperkalemia Requesting Provider: JACKIE SHAVER Date/Time of Note DATE: 10/29/18 TIME: 10:10 Past Medical History Medical History: coronary artery disease, diabetes, high cholesterol, hypertension Home Meds Reported Medications Tramadol HCl (Tramadol HCl) 50 Mg Tablet, 50 MG PO Q6H PRN for PAIN LEVEL 7-10, #120 TAB 06/23/18 Hydralazine Hcl* (Hydralazine Hcl*) 50 Mg Tab, 50 MG PO Q8 for hypertension, #90 TAB 06/23/18 Gabapentin* (Neurontin*) 400 Mg Capsule, 400 MG PO Q8, #90 CAP 06/23/18 Insulin Isophan/Regular (Humulin 70/30) 100 Units/Ml Susp, 18 UNIT SC Q8, EA 06/23/18 Omeprazole* (Omeprazole*) 40 Mg Capsule.dr, 40 MG PO DAILY, #30 CAP 06/23/18 Metoprolol Tartrate* (Lopressor*) 50 Mg Tab, 50 MG PO Q8, #60 TAB 06/23/18 Atorvastatin Calcium* (Atorvastatin Calcium*) 20 Mg Tablet, 20 MG PO QHS, #30 TAB 06/23/18 Ondansetron Hcl* (Ondansetron Hcl*) 4 Mg Tablet, 4 MG PO Q4H PRN for NAUSEA AND OR VOMITING, TAB 11/11/17 Budesonide-Formoterol Fumarate* (Symbicort*) 160-4.5 Hfa.aer.ad, 1 PUFF INHALATION BID, #1 EACH 11/11/17 Sennosides* (Senna Lax*) 8.6 Mg Tablet, 1 TAB PO BID, TAB 11/11/17 Multivitamins* (Theragran*) 1 Tab Tab, 1 TAB PO DAILY, TAB 11/11/17 Isosorbide Dinitrate* (Isosorbide Dinitrate*) 10 Mg Tablet, 10 MG PO TID, TAB 11/11/17 Ascorbic Acid* (Vitamin C*) 500 Mg Capsule.sa, 500 MG PO DAILY, CAP 11/11/17 Pantoprazole* (Protonix*) 40 Mg Tablet.dr, 40 MG PO AC BREAKFAST, TAB 08/07/17 Apixaban* (Eliquis*) 5 Mg Tablet, 5 MG PO BID, TAB 08/07/17 Nitroglycerin* (Nitrostat*) 0.4 Mg Tab.subl, 0.4 MG SL Q5MIN PRN for CHEST PAIN, BOTTLE 05/19/17 Duloxetine Hcl* (Cymbalta*) 30 Mg Capsule.dr, 30 MG PO DAILY, CAP 05/19/17 Acetaminophen* (Acetaminophen*) 650 Mg Tablet, 650 MG PO Q6H PRN for MILD TO MODERATE PAIN, #30 TAB 03/18/17 Alprazolam* (Alprazolam*) 0.25 Mg Tablet, 0.25 MG PO TID PRN for ANXIETY, TAB 03/18/17 Ferrous Sulfate* (Ferrous Sulfate*) 325 Mg Tabec, 325 MG PO DAILY, TAB 03/18/17 Medications Current Medications Ondansetron HCl (Zofran Inj) 4 mg ER BRIDGE PRN IV NAUSEA/VOMITING; Start 10/28/18 at 20:00; Stop 10/29/18 at 19:59 IV Flush (NS 3 ml) 3 ml PER PROTOCOL IV ; Start 10/28/18 at 20:30 Ondansetron HCl (Zofran Inj) 4 mg Q6H PRN IV NAUSEA/VOMITING; Start 10/28/18 at 20:30 Acetaminophen (Tylenol Tab) 650 mg Q6H PRN PO .PAIN 1-3 OR TEMP; Start 10/28/18 at 20:30 Morphine Sulfate (morphine) 2 mg Q4H PRN IV .PAIN 7-10; Start 10/28/18 at 20:30 Enoxaparin Sodium (Lovenox) 30 mg DAILY SC ; Start 10/29/18 at 09:00 Alprazolam (Xanax) 0.25 mg TID PRN PO ANXIETY; Start 10/28/18 at 20:30 Ascorbic Acid (Vitamin C) 500 mg DAILY PO Last administered on 10/29/18 09:07; Admin Dose 500 MG; Start 10/29/18 at 09:00 Atorvastatin Calcium (Lipitor) 20 mg QHS PO Last administered on 10/29/18 04:35; Admin Dose 20 MG; Start 10/28/18 at 21:00 Duloxetine HCl (Cymbalta) 30 mg DAILY PO Last administered on 10/29/18 09:06; Admin Dose 30 MG; Start 10/29/18 at 09:00 Ferrous Sulfate (Ferrous Sulfate (Ec)) 325 mg DAILY PO Last administered on 10/29/18 09:06; Admin Dose 325 MG; Start 10/29/18 at 09:00 Gabapentin (Neurontin) 400 mg Q8 PO Last administered on 10/29/18 04:35; Admin Dose 400 MG; Start 10/28/18 at 22:00 Hydralazine HCl (Apresoline) 50 mg Q8 PO Last administered on 10/29/18 04:34; Admin Dose 50 MG; Start 10/28/18 at 22:00 Isosorbide Dinitrate (Isordil) 10 mg TID PO Last administered on 10/29/18 09:08; Admin Dose 10 MG; Start 10/28/18 at 21:00 Metoprolol Tartrate (Lopressor) 50 mg Q8 PO Last administered on 10/29/18 04:36; Admin Dose 50 MG; Start 10/28/18 at 22:00 Multivitamins Therapeutic (Theragran) 1 tab DAILY PO Last administered on 10/29/18 09:08; Admin Dose 1 TAB; Start 10/29/18 at 09:00 Nitroglycerin (Nitroglycerin (Sl Tab) 0.4 Mg) 1 tab [id number] PRN SL CHEST PAIN; Start 10/28/18 at 20:30 Ondansetron HCl (Zofran Tab) 4 mg Q4H PRN PO NAUSEA AND/OR VOMITING; Start 10/28/18 at 20:30 Pantoprazole (Protonix Tab) 40 mg AC BREAKFAST PO Last administered on 10/29/18at 09:07; Admin Dose 40 MG; Start 10/29/18 at 07:00 Senna (Senokot) 1 tab BID PO Last administered on 10/29/18at 09:07; Admin Dose 1 TAB; Start 10/28/18 at 21:00 Tramadol HCl (Ultram) 50 mg Q6H PRN PO PAIN LEVEL 7-10; Start 10/28/18 at 20:30 Allergies: Coded Allergies: ciprofloxacin (Verified Allergy, Mild, ITCHINESS, RASH , 07/30/18) Penicillins (Verified Allergy, Unknown, 07/30/18) garlic (Verified Allergy, Unknown, 07/30/18) STOMACH UPSET linagliptin (Verified Allergy, Unknown, pancreatitis, 07/30/18) morphine (Verified Allergy, Unknown, 07/30/18) povidone-iodine (Verified Allergy, Unknown, RASH, 07/30/18) soap (Verified Allergy, Unknown, RASH, 07/30/18) Past Surgical History Past Surgical Hx: coronary bypass surgery, other Social History Smoking Status: Never smoker Exam/Review of Systems Exam Vitals Vital Signs Date Temp Pulse Resp B/P (MAP) Pulse Ox O2 O2 Flow FiO2 Time Delivery Rate 10/29/18 60 14 98 30 06:00 10/29/18 97.8 112/58 04:12 (76) 10/29/18 Mechanical 01:25 Ventilator Exam Constitutional: alert, awake + tracheostomy Respiratory: clear to auscultation, normal air movement, diminished breath sounds Cardiovascular: regular rate and rhythm, nl pulses Gastrointestinal: soft, non-tender, + g tube in place Musculoskeletal: nl extremities to inspection, muscle weakness, swelling Extremities: normal pulses Neurological: non focal, Results Result Diagram: 10/29/1831 10/29/18 0631 Results 24hrs Laboratory Tests Test 10/28/18 19:05 10/28/18 19:10 10/29/18 06:31 10/29/18 07:41 White Blood Count 13.4 #H 12.1 H Red Blood Count 2.94 L 2.98 L Hemoglobin 7.5 L 7.7 L Hematocrit 24.6 L 25.0 L Mean Corpuscular 83.7 83.9 Volume Mean Corpuscular 25.5 L 25.8 L Hemoglobin Mean Corpuscular 30.5 L 30.8 L Hemoglobin Concent Red Cell 17.9 H 17.7 H Distribution Width Platelet Count 186 # 185 Mean Platelet Volume 10.9 H 11.5 H Immature 0.800 H 0.900 H Granulocytes % Neutrophils % 89.7 H 84.5 H Lymphocytes % 4.0 L 5.8 L Monocytes % 5.2 7.8 Eosinophils % 0.2 0.8 Basophils % 0.1 0.2 Nucleated Red Blood 0.0 0.2 H Cells % Immature 0.110 H 0.110 H Granulocytes # Neutrophils # 12.0 H 10.2 H Lymphocytes # 0.5 L 0.7 L Monocytes # 0.7 1.0 H Eosinophils # 0.0 0.1 Basophils # 0.0 0.0 Nucleated Red Blood 0.0 0.0 Cells # Sodium Level 121 L 121 L Potassium Level 3.6 3.7 Chloride Level 76 L 80 L Carbon Dioxide Level 33 H 29 Anion Gap 12 12 Blood Urea Nitrogen 135 H 143 H Creatinine 3.91 H 3.70 H Est Glomerular 15 L 17 L Filtrat Rate mL/min Glucose Level 189 114 # Calcium Level 7.8 L 7.5 L Urine Color POWER Urine Clarity TURBID A Urine pH 5.0 Urine Specific 1.020 [place] Urine Ketones NEGATIVE Urine Nitrite NEGATIVE Urine Bilirubin NEGATIVE Urine Urobilinogen NEGATIVE Urine Leukocyte 2+ H Esterase Urine Microscopic 17 H RBC Urine Microscopic > 182 H WBC Urine Squamous MODERATE Epithelial Cells Urine Bacteria MODERATE Urine Mucus FEW A Urine Hemoglobin 1+ H Urine Glucose NEGATIVE Urine Total Protein 2+ H Hemoglobin A1c 6.5 H Total Bilirubin 0.3 Direct Bilirubin 0.00 Indirect Bilirubin 0.3 Aspartate Amino 97 H Transf (AST/SGOT) Alanine 50 Aminotransferase (AL T/SGPT) Alkaline Phosphatase 148 H Total Protein 8.1 Albumin 2.8 L Globulin 5.30 H Albumin/Globulin 0.52 Ratio Bedside Glucose 145 Medications Medication Current Medications Ondansetron HCl (Zofran Inj) 4 mg ER BRIDGE PRN IV NAUSEA/VOMITING; Start at 20:00; Stop 10/29/18 at 19:59 IV Flush (NS 3 ml) 3 ml PER PROTOCOL IV ; Start 10/28/18 at 20:30 Ondansetron HCl (Zofran Inj) 4 mg Q6H PRN IV NAUSEA/VOMITING; Start 10/28/18 at 20:30 Acetaminophen (Tylenol Tab) 650 mg Q6H PRN PO .PAIN 1-3 OR TEMP; Start 10/28/18 at 20:30 Morphine Sulfate (morphine) 2 mg Q4H PRN IV .PAIN 7-10; Start 10/28/18 at 20:30 Enoxaparin Sodium (Lovenox) 30 mg DAILY SC ; Start 10/29/18 at 09:00 Alprazolam (Xanax) 0.25 mg TID PRN PO ANXIETY; Start 10/28/18 at 20:30 Ascorbic Acid (Vitamin C) 500 mg DAILY PO Last administered on 10/29/18 09:07; Admin Dose 500 MG; Start 10/29/18 at 09:00 Atorvastatin Calcium (Lipitor) 20 mg QHS PO Last administered on 10/29/18at 04:35; Admin Dose 20 MG; Start 10/28/18 at 21:00 Duloxetine HCl (Cymbalta) 30 mg DAILY PO Last administered on 10/29/18 09:06; Admin Dose 30 MG; Start 10/29/18 at 09:00 Ferrous Sulfate (Ferrous Sulfate (Ec)) 325 mg DAILY PO Last administered on 10/29/18 09:06; Admin Dose 325 MG; Start 10/29/18 at 09:00 Gabapentin (Neurontin) 400 mg Q8 PO Last administered on 10/29/18 04:35; Admin Dose 400 MG; Start 10/28/18 at 22:00 Hydralazine HCl (Apresoline) 50 mg Q8 PO Last administered on 10/29/18 04:34; Admin Dose 50 MG; Start 10/28/18 at 22:00 Isosorbide Dinitrate (Isordil) 10 mg TID PO Last administered on 10/29/18 09:08; Admin Dose 10 MG; Start 10/28/18 at 21:00 Metoprolol Tartrate (Lopressor) 50 mg Q8 PO Last administered on 10/29/18 04:36; Admin Dose 50 MG; Start 10/28/18 at 22:00 Multivitamins Therapeutic (Theragran) 1 tab DAILY PO Last administered on 10/29/18at 09:08; Admin Dose 1 TAB; Start 10/29/18 at 09:00 Nitroglycerin (Nitroglycerin (Sl Tab) 0.4 Mg) 1 tab [id number] PRN SL CHEST PAIN; Start 10/28/18 at 20:30 Ondansetron HCl (Zofran Tab) 4 mg Q4H PRN PO NAUSEA AND/OR VOMITING; Start 10/28/18 at 20:30 Pantoprazole (Protonix Tab) 40 mg AC BREAKFAST PO Last administered on 10/29/18at 09:07; Admin Dose 40 MG; Start 10/29/18 at 07:00 Senna (Senokot) 1 tab BID PO Last administered on 10/29/18at 09:07; Admin Dose 1 TAB; Start 10/28/18 at 21:00 Tramadol HCl (Ultram) 50 mg Q6H PRN PO PAIN LEVEL 7-10; Start 10/28/18 at 20:30 OCTAVIO BOX MD Oct 29, 2018 10:10
[2018-10-29] MEDS: ALBUMIN HUMAN 25% 100 ML IV SCH ×2 (11:11→17:56)
[2018-10-29] MEDS ORDERED: GLUCAGON 1 MG INJ IM PRN (12:00)
[2018-10-29] MEDS ORDERED: GLUCOSE GEL 15 GRAM TUBE BUCCAL PRN (12:00)
[2018-10-29] MEDS ORDERED: DEXTROSE 50% 50 ML SYRINGE IV PRN ×2 (12:00)
[2018-10-29] MEDS ORDERED: GLUCOSE GEL 15 GRAM TUBE PO PRN ×2 (12:00)
[2018-10-29] MEDS: INSULIN ASPART [NOVOLOG] 3 ML PEN SC SCH ×3 (13:00→21:43)
[2018-10-29] MEDS: CEFEPIME HCL 0.5 GM in SOD CHLORIDE 0.9% 50 ML IVPB SCH (19:30)
[2018-10-29] MEDS ORDERED: CEFEPIME HCL IVPB SCH (19:30)
[2018-10-29] MEDS ORDERED: SOD CHLORIDE 0.9% IVPB SCH (19:30)
[2018-10-29] MEDS: BALSAM PERU/CASTOR OIL 60 GM TUBE TOP SCH (21:23)
[2018-10-29] MEDS: NYSTATIN 15 GM CR TOP SCH (21:24)
[2018-10-30] VITALS (19 sets, daily range): BP systolic 93–106; BP diastolic 45–58; PULSE 59–62; RESP 14–22
[2018-10-30] MEDS: ACETAMINOPHEN 325 MG TAB PO PRN ×2 (01:26→09:58)
[2018-10-30] MEDS: INSULIN ASPART [NOVOLOG] 3 ML PEN SC SCH ×6 (01:36→21:32)
[2018-10-30] MEDS: ALBUMIN HUMAN 25% 100 ML IV SCH ×3 (02:36→18:13)
[2018-10-30] MEDS: GABAPENTIN 400 MG CAP PO SCH ×3 (05:41→22:13)
[2018-10-30] MEDS: PANTOPRAZOLE (EC) 40 MG TAB PO SCH (06:47)
[2018-10-30] MEDS: METOPROLOL 50 MG TAB PO SCH ×2 (09:00→21:00)
[2018-10-30] MEDS: DULOXETINE 30 MG CAP DR PO SCH (09:57)
[2018-10-30] MEDS: MULTIVIT/CA CARB/B CMPLX/FA TAB GTB SCH (09:58)
[2018-10-30] MEDS: FERROUS SULFATE (EC) 325 MG TAB PO SCH (09:58)
[2018-10-30] MEDS: SENNA TAB PO SCH ×2 (09:58→21:20)
[2018-10-30] MEDS: ISOSORBIDE DINITRATE 10 MG TAB PO SCH ×3 (09:59→21:00)
[2018-10-30] MEDS: BALSAM PERU/CASTOR OIL 60 GM TUBE TOP SCH ×2 (09:59→21:22)
[2018-10-30] MEDS: NYSTATIN 15 GM CR TOP SCH ×2 (10:00→21:22)
[2018-10-30] MEDS: ENOXAPARIN 30 MG/0.3 ML SYG SC SCH (10:03)
[2018-10-30] MEDS ORDERED: CEFEPIME HCL 0.5 GM in SOD CHLORIDE 0.9% 50 ML IVPB SCH ×2 (11:00→20:00)
--- NOTE | 2018-10-30 12:56 | CONS ---
Assessment/Plan Assessment/Plan Assessment/Plan (Daily) 1. CR on CKD with BUN 135 on admission 3. Severe Hyponatremia 3. H/o HTN 6. VDRF s/p Tracheostomy 7. Dysphagia S/p G tube 8. H/o CAD s/p CABG 9. H/O HL Plan: Pt did not respond to IV albumin, BUN/cr rising, urine output dropped to 0 ml- Discussed with pt sister dustin- Explained her about pt clinical condition and poor prognosis, She agreed for DNR, but requested us to check with pt aonther siter in [place] no plan for HD as per Discussion with sister Dustin Monitor electrolytes and Replace as needed will follow up Consultation Date/Type/Reason Admit Date/Time Oct 28, 2018 at 19:52 Initial Consult Date 10/29/18 Type of Consult NEPHROLOGY Requesting Provider: JACKIE SHAVER Date/Time of Note DATE: 10/30/18 TIME: 12:56 Exam/Review of Systems Exam Vitals Vital Signs Date Temp Pulse Resp B/P (MAP) Pulse Ox O2 O2 Flow FiO2 Time Delivery Rate 10/30/18 98.2 62 102/58 96 Mechanical 12:23 (73) Ventilator Trach Collar 10/30/18 22 11:10 10/30/18 30 08:17 Intake and Output 10/29/18 10/29/18 10/30/18 1515:00 23:00 07:00 IntakeIntake Total 100 ml 144 ml 485 ml OutputOutput Total 400 ml 100 ml BalanceBalance 100 ml -256 ml 385 ml Results Result Diagram: 10/30/18 0632 10/30/18 0632 Results 24hrs Laboratory Tests Test 10/29/18 16:00 10/29/18 16:47 10/29/18 21:29 10/30/18 01:15 Urine Eosinophils % 0.0 Urine Random Sodium < 13 L Urine Total Protein 101.0 H Bedside Glucose 139 235 H 272 H Test 10/30/18 05:39 10/30/18 06:32 10/30/18 08:56 10/30/18 12:27 Bedside Glucose 350 H 396 H 376 H White Blood Count 16.0 #H Red Blood Count 2.94 L Hemoglobin 7.6 L Hematocrit 24.6 L Mean Corpuscular 83.7 Volume Mean Corpuscular 25.9 L Hemoglobin Mean Corpuscular 30.9 L Hemoglobin Concent Red Cell Distribution 18.1 H Width Platelet Count 163 Mean Platelet Volume 11.2 H Immature Granulocytes 2.400 H % Neutrophils % 84.7 H Lymphocytes % 5.5 L Monocytes % 6.3 Eosinophils % 0.8 Basophils % 0.3 Nucleated Red Blood 0.0 Cells % Immature Granulocytes 0.380 H # Neutrophils # 13.5 H Lymphocytes # 0.9 Monocytes # 1.0 H Eosinophils # 0.1 Basophils # 0.0 Nucleated Red Blood 0.0 Cells # Sodium Level 122 L Potassium Level 3.4 L Chloride Level 78 L Carbon Dioxide Level 25 Anion Gap 19 #H Blood Urea Nitrogen 143 H Creatinine 4.49 H Est Glomerular 13 L Filtrat Rate mL/min Glucose Level 276 #H Uric Acid 16.1 H Calcium Level 8.1 L Creatine Kinase 230 H Medications Medication Current Medications IV Flush (NS 3 ml) 3 ml PER PROTOCOL IV ; Start 10/28/18 at 20:30 Ondansetron HCl (Zofran Inj) 4 mg Q6H PRN IV NAUSEA/VOMITING; Start 10/28/18 at 20:30 Acetaminophen (Tylenol Tab) 650 mg Q6H PRN PO .PAIN 1-3 OR TEMP Last administered on 10/30/18at 09:58; Admin Dose 650 MG; Start 10/28/18 at 20:30 Morphine Sulfate (morphine) 2 mg Q4H PRN IV .PAIN 7-10; Start 10/28/18 at 20:30 Enoxaparin Sodium (Lovenox) 30 mg DAILY SC Last administered on 10/30/18at 10:03; Admin Dose 30 MG; Start 10/29/18 at 09:00 Alprazolam (Xanax) 0.25 mg TID PRN PO ANXIETY; Start 10/28/18 at 20:30 Atorvastatin Calcium (Lipitor) 20 mg QHS PO Last administered on 10/29/18at 21:23; Admin Dose 20 MG; Start 10/28/18 at 21:00 Duloxetine HCl (Cymbalta) 30 mg DAILY PO Last administered on 10/30/18at 09:57; Admin Dose 30 MG; Start 10/29/18 at 09:00 Ferrous Sulfate (Ferrous Sulfate (Ec)) 325 mg DAILY PO Last administered on 10/30/18at 09:58; Admin Dose 325 MG; Start 10/29/18 at 09:00 Gabapentin (Neurontin) 400 mg Q8 PO Last administered on 10/30/18at 05:41; Admin Dose 400 MG; Start 10/28/18 at 22:00 Isosorbide Dinitrate (Isordil) 10 mg TID PO Last administered on 10/30/18at 09:59; Admin Dose 10 MG; Start 10/28/18 at 21:00 Nitroglycerin (Nitroglycerin (Sl Tab) 0.4 Mg) 1 tab [id number] PRN SL CHEST PAIN; Start 10/28/18 at 20:30 Ondansetron HCl (Zofran Tab) 4 mg Q4H PRN PO NAUSEA AND/OR VOMITING; Start 10/28/18 at 20:30 Pantoprazole (Protonix Tab) 40 mg AC BREAKFAST PO Last administered on 10/30/18at 06:47; Admin Dose 40 MG; Start 10/29/18 at 07:00 Senna (Senokot) 1 tab BID PO Last administered on 10/30/18at 09:58; Admin Dose 1 TAB; Start 10/28/18 at 21:00 Tramadol HCl (Ultram) 50 mg Q6H PRN PO PAIN LEVEL 7-10; Start 10/28/18 at 20:30 Albumin Human 100 ml @ 100 mls/hr Q8H IV Last administered on 10/30/18at 10:01; Admin Dose 100 MLS/HR; Start 10/29/18 at 10:30; Stop 10/31/18 at 03:29 Insulin Aspart (Novolog Insulin Pen) NOVOLOG *MILD* ALGORI... Q4 SC Last administered on 10/30/18at 12:33; Admin Dose 7 UNIT; Start 10/29/18 at 13:00 Miscellaneous Information 1 ea NOTE XX ; Start 10/29/18 at 12:00 Glucose (Glutose) 15 gm Q15M PRN PO DECREASED GLUCOSE; Start 10/29/18 at 12:00 Glucose (Glutose) 22.5 gm Q15M PRN PO DECREASED GLUCOSE; Start 10/29/18 at 12:00 Dextrose (D50w Syringe) 25 ml Q15M PRN IV DECREASED GLUCOSE; Start 10/29/18 at 12:00 Dextrose (D50w Syringe) 50 ml Q15M PRN IV DECREASED GLUCOSE; Start 10/29/18 at 12:00 Glucagon (Glucagen) 1 mg Q15M PRN IM DECREASED GLUCOSE; Start 10/29/18 at 12:00 Glucose (Glutose) 15 gm Q15M PRN BUCCAL DECREASED GLUCOSE; Start 10/29/18 at 12:00 Multivit/Ca Carb/ B Cmplx/FA/Prenat (Inna-Belinda) 1 tab DAILY GTB Last administered on 10/30/18at 09:58; Admin Dose 1 TAB; Start 10/30/18 at 09:00 Nystatin (Nystatin Cr) 1 applic BID TOP Last administered on 10/30/18at 10:00; Admin Dose 1 APPLIC; Start 10/29/18 at 21:00 Hydralazine HCl (Apresoline) 25 mg BID PO ; Start 10/30/18 at 09:00 Metoprolol Tartrate (Lopressor) 25 mg BID PO ; Start 10/30/18 at 09:00 Cefepime HCl 0.5 gm/Sodium Chloride 50 ml @ 100 mls/hr Q24H IVPB ; Start 10/30/18 at 20:00 OCTAVIO BOX MD Oct 30, 2018 12:56
--- NOTE | 2018-10-30 14:37 | PN ---
Date/Time of Note Date/Time of Note DATE: 10/30/18 TIME: 14:36 Assessment/Plan VTE Prophylaxis [place] [facility] risk: 7 SCD applied ([place] [facility] No SCD contraindicated: other Pharmacological prophylaxis: LMWH Lines/Catheters IV Catheter Type (from [facility]): [place] Urinary Cath still in place: Yes Reason Cath still needed: skin wounds contaminated by urine Assessment/Plan Hospital Course 1) Worsening renal failure - consult nephrology 2) respiratory failure - on trach, is stable 3) coronary artery disease - no evidence of acute exacerbation Result Diagram: 10/30/18 0632 10/30/18 0632 Results 24hrs Laboratory Tests Test 10/29/18 16:00 10/29/18 16:47 10/29/18 21:29 10/30/18 01:15 Urine Eosinophils % 0.0 Urine Random Sodium < 13 L Urine Total Protein 101.0 H Bedside Glucose 139 235 H 272 H Test 10/30/18 05:39 10/30/18 06:32 10/30/18 08:56 10/30/18 12:27 Bedside Glucose 350 H 396 H 376 H White Blood Count 16.0 #H Red Blood Count 2.94 L Hemoglobin 7.6 L Hematocrit 24.6 L Mean Corpuscular 83.7 Volume Mean Corpuscular 25.9 L Hemoglobin Mean Corpuscular 30.9 L Hemoglobin Concent Red Cell Distribution 18.1 H Width Platelet Count 163 Mean Platelet Volume 11.2 H Immature Granulocytes 2.400 H % Neutrophils % 84.7 H Lymphocytes % 5.5 L Monocytes % 6.3 Eosinophils % 0.8 Basophils % 0.3 Nucleated Red Blood 0.0 Cells % Immature Granulocytes 0.380 H # Neutrophils # 13.5 H Lymphocytes # 0.9 Monocytes # 1.0 H Eosinophils # 0.1 Basophils # 0.0 Nucleated Red Blood 0.0 Cells # Sodium Level 122 L Potassium Level 3.4 L Chloride Level 78 L Carbon Dioxide Level 25 Anion Gap 19 #H Blood Urea Nitrogen 143 H Creatinine 4.49 H Est Glomerular 13 L Filtrat Rate mL/min Glucose Level 276 #H Uric Acid 16.1 H Calcium Level 8.1 L Creatine Kinase 230 H Subjective 24 Hr Interval Summary Free Text/Dictation Patient remain sedated Exam/Review of Systems Exam Vitals Vital Signs Date Temp Pulse Resp B/P (MAP) Pulse Ox O2 O2 Flow FiO2 Time Delivery Rate 10/30/18 60 17 95 30 13:04 10/30/18 Mechanical 13:04 Ventilator 10/30/18 98.2 102/58 12:23 (73) Intake and Output 10/29/18 10/29/18 10/30/18 1515:00 23:00 07:00 IntakeIntake Total 100 ml 144 ml 485 ml OutputOutput Total 400 ml 100 ml BalanceBalance 100 ml -256 ml 385 ml Constitutional: well developed Head: normocephalic, atraumatic Neck: supple Respiratory: diminished breath sounds Cardiovascular: regular rate and rhythm Gastrointestinal: soft, non-tender Extremities: normal pulses Results Results 24hrs Laboratory Tests Test 10/29/18 16:00 10/29/18 16:47 10/29/18 21:29 10/30/18 01:15 Urine Eosinophils % 0.0 Urine Random Sodium < 13 L Urine Total Protein 101.0 H Bedside Glucose 139 235 H 272 H Test 10/30/18 05:39 10/30/18 06:32 10/30/18 08:56 10/30/18 12:27 Bedside Glucose 350 H 396 H 376 H White Blood Count 16.0 #H Red Blood Count 2.94 L Hemoglobin 7.6 L Hematocrit 24.6 L Mean Corpuscular 83.7 Volume Mean Corpuscular 25.9 L Hemoglobin Mean Corpuscular 30.9 L Hemoglobin Concent Red Cell Distribution 18.1 H Width Platelet Count 163 Mean Platelet Volume 11.2 H Immature Granulocytes 2.400 H % Neutrophils % 84.7 H Lymphocytes % 5.5 L Monocytes % 6.3 Eosinophils % 0.8 Basophils % 0.3 Nucleated Red Blood 0.0 Cells % Immature Granulocytes 0.380 H # Neutrophils # 13.5 H Lymphocytes # 0.9 Monocytes # 1.0 H Eosinophils # 0.1 Basophils # 0.0 Nucleated Red Blood 0.0 Cells # Sodium Level 122 L Potassium Level 3.4 L Chloride Level 78 L Carbon Dioxide Level 25 Anion Gap 19 #H Blood Urea Nitrogen 143 H Creatinine 4.49 H Est Glomerular 13 L Filtrat Rate mL/min Glucose Level 276 #H Uric Acid 16.1 H Calcium Level 8.1 L Creatine Kinase 230 H Medications Medication Current Medications IV Flush (NS 3 ml) 3 ml PER PROTOCOL IV ; Start 10/28/18 at 20:30 Ondansetron HCl (Zofran Inj) 4 mg Q6H PRN IV NAUSEA/VOMITING; Start 10/28/18 at 20:30 Acetaminophen (Tylenol Tab) 650 mg Q6H PRN PO .PAIN 1-3 OR TEMP Last administered on 10/30/18 09:58; Admin Dose 650 MG; Start 10/28/18 at 20:30 Morphine Sulfate (morphine) 2 mg Q4H PRN IV .PAIN 7-10; Start 10/28/18 at 20:30 Enoxaparin Sodium (Lovenox) 30 mg DAILY SC Last administered on 10/30/18at 10:03; Admin Dose 30 MG; Start 10/29/18 at 09:00 Alprazolam (Xanax) 0.25 mg TID PRN PO ANXIETY; Start 10/28/18 at 20:30 Atorvastatin Calcium (Lipitor) 20 mg QHS PO Last administered on 10/29/18at 21:23; Admin Dose 20 MG; Start 10/28/18 at 21:00 Duloxetine HCl (Cymbalta) 30 mg DAILY PO Last administered on 10/30/18 09:57; Admin Dose 30 MG; Start 10/29/18 at 09:00 Ferrous Sulfate (Ferrous Sulfate (Ec)) 325 mg DAILY PO Last administered on 10/30/18 09:58; Admin Dose 325 MG; Start 10/29/18 at 09:00 Gabapentin (Neurontin) 400 mg Q8 PO Last administered on 10/30/18 13:30; Admin Dose 400 MG; Start 10/28/18 at 22:00 Isosorbide Dinitrate (Isordil) 10 mg TID PO Last administered on 10/30/18at 13:30; Admin Dose 10 MG; Start 10/28/18 at 21:00 Nitroglycerin (Nitroglycerin (Sl Tab) 0.4 Mg) 1 tab [id number] PRN SL CHEST PAIN; Start 10/28/18 at 20:30 Ondansetron HCl (Zofran Tab) 4 mg Q4H PRN PO NAUSEA AND/OR VOMITING; Start 10/28/18 at 20:30 Pantoprazole (Protonix Tab) 40 mg AC BREAKFAST PO Last administered on 10/30/18at 06:47; Admin Dose 40 MG; Start 10/29/18 at 07:00 Senna (Senokot) 1 tab BID PO Last administered on 10/30/18at 09:58; Admin Dose 1 TAB; Start 10/28/18 at 21:00 Tramadol HCl (Ultram) 50 mg Q6H PRN PO PAIN LEVEL 7-10; Start 10/28/18 at 20:30 Albumin Human 100 ml @ 100 mls/hr Q8H IV Last administered on 10/30/18at 10:01; Admin Dose 100 MLS/HR; Start 10/29/18 at 10:30; Stop 10/31/18 at 03:29 Insulin Aspart (Novolog Insulin Pen) NOVOLOG *MILD* ALGORI... Q4 SC Last administered on 10/30/18at 12:33; Admin Dose 7 UNIT; Start 10/29/18 at 13:00 Miscellaneous Information 1 ea NOTE XX ; Start 10/29/18 at 12:00 Glucose (Glutose) 15 gm Q15M PRN PO DECREASED GLUCOSE; Start 10/29/18 at 12:00 Glucose (Glutose) 22.5 gm Q15M PRN PO DECREASED GLUCOSE; Start 10/29/18 at 12:00 Dextrose (D50w Syringe) 25 ml Q15M PRN IV DECREASED GLUCOSE; Start 10/29/18 at 12:00 Dextrose (D50w Syringe) 50 ml Q15M PRN IV DECREASED GLUCOSE; Start 10/29/18 at 12:00 Glucagon (Glucagen) 1 mg Q15M PRN IM DECREASED GLUCOSE; Start 10/29/18 at 12:00 Glucose (Glutose) 15 gm Q15M PRN BUCCAL DECREASED GLUCOSE; Start 10/29/18 at 12:00 Multivit/Ca Carb/ B Cmplx/FA/Prenat (Inna-Belinda) 1 tab DAILY GTB Last administered on 10/30/18at 09:58; Admin Dose 1 TAB; Start 10/30/18 at 09:00 Nystatin (Nystatin Cr) 1 applic BID TOP Last administered on 10/30/18at 10:00; Admin Dose 1 APPLIC; Start 10/29/18 at 21:00 Hydralazine HCl (Apresoline) 25 mg BID PO ; Start 10/30/18 at 09:00 Metoprolol Tartrate (Lopressor) 25 mg BID PO ; Start 10/30/18 at 09:00 Cefepime HCl 0.5 gm/Sodium Chloride 50 ml @ 100 mls/hr Q24H IVPB ; Start 10/30/18 at 20:00 JACKIE SHAVER Oct 30, 2018 14:37
[2018-10-30] MEDS: ATORVASTATIN 20 MG TAB PO SCH (21:20)
[2018-10-30] MEDS: INSULIN GLARGINE [LANTus] (100 UNITS/ML) SYG SC SCH (21:32)
[2018-10-31] VITALS (19 sets, daily range): BP systolic 89–114; BP diastolic 42–54; PULSE 57–60; RESP 15–20
[2018-10-31] MEDS: INSULIN ASPART [NOVOLOG] 3 ML PEN SC SCH ×6 (01:09→21:09)
[2018-10-31] MEDS: ACCU-CHEK XX SCH (02:00)
[2018-10-31] MEDS: ALBUMIN HUMAN 25% 100 ML IV SCH (02:27)
[2018-10-31] MEDS ORDERED: INSULIN ASPART [NOVOLOG] 3 ML PEN SC ONE (03:10)
--- NOTE | 2018-10-31 03:49 | CONS ---
DATE OF ADMISSION: 10/28/2018 DATE OF CONSULTATION: 10/30/2018 TYPE OF CONSULTATION: Infectious Disease. REASON FOR CONSULTATION: Antibiotic management. HISTORY OF PRESENT ILLNESS: Omer Erazo is a 68-year-old male who is well known to us from [facility] admissions. His problems include: 1. Ventilator-dependent respiratory failure. 2. Status post tracheostomy. 3. Coronary artery disease. 4. Chronic renal failure. 5. CHF. 6. Pacemaker. The patient was brought in by ambulance for abnormal lab results. He also has chronic encephalopathy . His BUN was reported to be 128, creatinine 3.5. PAST MEDICAL HISTORY: Includes bilateral [id number] amputations. The patient also has a gastros nate tube. He has a history of spina bifida, seizure disorders and CVA. Also, history of hypertensi on and diabetes. PAST MEDICAL HISTORY: As outlined. FAMILY HISTORY: Noncontributory. SOCIAL HISTORY: He obviously does not smoke, drink or abuse drugs. ALLERGIES: 1. PENICILLIN. 2. CIPRO. 3. GARLIC. 4. HE ALSO HAS STOMACH UPSET WITH A NUMBER OF MEDICATIONS INCLUDING MORPHINE. PHYSICAL EXAMINATION: VITAL SIGNS: Stable. SKIN: Without generalized rash. GENERAL: The patient is a chronically ill-appearing male. He has a trach, PEG. SKIN: Without generalized rash. HEENT: Within normal limits. NECK: Supple. LYMPH NODES: None palpable. Tracheostomy in place. CHEST: Rhonchi bilaterally with decreased breath sounds at the bases. HEART: Without murmur or gallop. ABDOMEN: Soft, nontender, nondistended, without organosplenomegaly or masses. EXTREMITIES: Without cyanosis ____. The patient has bilateral BKAs. He has peripheral edema in renae ateral upper extremities, 1+. RECTAL AND GENITAL: Deferred. NEUROLOGIC: The patient has chronic encephalopathy. ANCILLARY LABORATORY DATA: On admission, his white count was 13.4, H and H of 7.5 and 24.6, platelet count 186,000. BUN/creatinine 135/3.91. His CO2 was 33, consistent with alkalosis. Sodium was 121 , so he is hyponatremic. Potassium 3.6, chloride 76. He has 90% neutrophils on admission. His urin e showed 2+ leukocyte esterase, greater than 182 white cells per high-power field, consistent with a urinary tract infection. The patient was started on cefepime. The patient has worsening renal insuf ficiency and uremia. Blood cultures were done. HOSPITAL COURSE: The patient had gram-negative rods in his urine. Blood cultures were negative. Ab dominal ultrasound, contracted gallbladder with multiple calcified stones, mild to moderate gallbladd er wall thickening, no evidence of pericholecystic fluid. He has mild splenomegaly. His chest x-ray showed slightly improved pulmonary edema. The patient was seen by Dr. Eriberto Herbert for renal failu re. IMPRESSION AND PLAN: The patient was admitted with a urinary tract infection. Today, his white coun t is 16,000. It seems to me that this patient should be in hospice care in view of all of his proble ms, and I would doubt that he is a candidate for dialysis, but that is up to the family and the conse rvator. For now, we will continue the cefepime. I will dictate my findings to Dr. Villatoro and Dr. Shaver. Dictated By: JUAN ROMANO MD, JD/KRYSTAL Conf#: [id number] DID#: [id number] CC: JACKIE SHAVER MD;*EndCC*
[2018-10-31] MEDS ORDERED: ACCU-CHEK XX ONE (05:30)
[2018-10-31] MEDS: PANTOPRAZOLE (EC) 40 MG TAB PO SCH (06:40)
[2018-10-31] MEDS: GABAPENTIN 400 MG CAP PO SCH ×3 (06:40→21:05)
[2018-10-31] MEDS: ISOSORBIDE DINITRATE 10 MG TAB PO SCH ×3 (09:00→20:48)
[2018-10-31] MEDS: METOPROLOL 50 MG TAB PO SCH ×2 (09:00→20:49)
[2018-10-31] MEDS: DULOXETINE 30 MG CAP DR PO SCH (09:25)
[2018-10-31] MEDS: MULTIVIT/CA CARB/B CMPLX/FA TAB GTB SCH (09:25)
[2018-10-31] MEDS: FERROUS SULFATE (EC) 325 MG TAB PO SCH (09:25)
[2018-10-31] MEDS: ACETAMINOPHEN 325 MG TAB PO PRN (09:25)
[2018-10-31] MEDS: SENNA TAB PO SCH ×2 (09:26→21:05)
[2018-10-31] MEDS: BALSAM PERU/CASTOR OIL 60 GM TUBE TOP SCH ×2 (09:27→21:05)
[2018-10-31] MEDS: NYSTATIN 15 GM CR TOP SCH ×2 (09:27→21:05)
[2018-10-31] MEDS: ENOXAPARIN 30 MG/0.3 ML SYG SC SCH (09:32)
--- NOTE | 2018-10-31 11:35 | CONS ---
Assessment/Plan Assessment/Plan Assessment/Plan (Daily) 1. CR on CKD with BUN 135 on admission 3. Severe Hyponatremia 3. H/o HTN 6. VDRF s/p Tracheostomy 7. Dysphagia S/p G tube 8. H/o CAD s/p CABG 9. H/O HL Plan: BUN/Cr 150/4.75, Na 121, K 3.1-pt becomes anuric Pt did not respond to IV albumin, BUN/cr rising, Discussed with pt sister dustin and siter Kalani in [place]- Explained her about pt clinical condition and poor prog nosis, They both agreed for DNR, no plan for Dialysis, no ICU transfer, no Agressive care and agree to have palliative care consult Consult ordered for palliative care consult will follow up Consultation Date/Type/Reason Admit Date/Time Oct 28, 2018 at 19:52 Initial Consult Date 10/29/18 Type of Consult NEPHROLOGY Requesting Provider: JACKIE SHAVER Date/Time of Note DATE: 10/31/18 TIME: 11:35 24 HR Interval Summary Free Text/Dictation BUN/Cr 150/4.75, Na 121, K 3.1-pt becomes anuric Exam/Review of Systems Exam Vitals Vital Signs Date Temp Pulse Resp B/P (MAP) Pulse Ox O2 O2 Flow FiO2 Time Delivery Rate 10/31/18 99.9 60 18 93/46 (62) 99 11:03 10/31/18 35 07:53 10/31/18 Mechanical 07:45 Ventilator Intake and Output 10/30/18 10/30/18 10/31/18 1515:00 23:00 07:00 IntakeIntake Total 100 ml 820 ml 100 ml OutputOutput Total 200 ml 100 ml BalanceBalance 100 ml 620 ml 0 ml Exam Constitutional: alert, awake + tracheostomy Respiratory: clear to auscultation, normal air movement, diminished breath sounds Cardiovascular: regular rate and rhythm, nl pulses Gastrointestinal: soft, non-tender, + g tube in place Musculoskeletal: nl extremities to inspection, muscle weakness, swelling Extremities: normal pulses Neurological: non focal, Results Result Diagram: 10/31/18 0607 10/31/18 0607 Results 24hrs Laboratory Tests Test 10/30/18 12:27 10/30/18 18:03 10/30/18 21:15 10/31/18 01:03 Bedside Glucose 376 H 322 H 319 H 315 H Test 10/31/18 02:21 10/31/18 03:17 10/31/18 05:26 10/31/18 06:07 Bedside Glucose 325 H 319 H 308 H White Blood Count 12.1 #H Red Blood Count 2.50 L Hemoglobin 6.6 *L Hematocrit 20.8 L Mean Corpuscular Volume 83.2 Mean Corpuscular 26.4 L Hemoglobin Mean Corpuscular 31.7 L Hemoglobin Concent Red Cell Distribution 17.9 H Width Platelet Count 153 Mean Platelet Volume 11.4 H Immature Granulocytes % 1.700 H Neutrophils % 83.2 H Segmented Neutrophils 87 H % (Manual) Band Neutrophils % 4 (Manual) Lymphocytes % 6.3 L Lymphocytes % (Manual) 3 L Reactive Lymphocytes 2 H % (Manual) Monocytes % 7.0 Monocytes % (Manual) 3 Eosinophils % 1.6 Eosinophils % (Manual) 1 Basophils % 0.2 Nucleated Red Blood 0.0 Cells % Immature Granulocytes # 0.210 H Neutrophils # 10.1 H Neutrophils # (Manual) 10.6 H Band Neutrophils # 0.4 Lymphocytes (Manual) 0.3 L Lymphocytes # 0.8 Reactive Lymphocytes # 0.2 H Monocytes # 0.9 Monocytes # (Manual) 0.3 Eosinophils # 0.2 Basophils # 0.0 Nucleated Red Blood 0.0 Cells # Pathologist YES Review (Hematology) Platelet Estimate NORMAL Giant Platelets 1 H Polychromasia 2+ Poikilocytosis 1+ Anisocytosis 1+ Microcytosis 1+ Spherocytes 1+ Ovalocytes 1+ Prothrombin Time 17.7 H Prothrombin Time Ratio 1.4 INR International 1.45 Normalized Ratio Activated 39.5 H Partial Thromboplast Time Sodium Level 121 L Potassium Level 3.1 L Chloride Level 78 L Carbon Dioxide Level 26 Anion Gap 17 H Blood Urea Nitrogen 150 H Creatinine 4.75 H Est Glomerular Filtrat 12 L Rate mL/min Glucose Level 245 H Calcium Level 8.2 L Magnesium Level 3.7 H Total Bilirubin 0.3 Direct Bilirubin 0.00 Indirect Bilirubin 0.3 Aspartate Amino 104 H Transf (AST/SGOT) Alanine 83 H Aminotransferase (ALT/SG PT) Alkaline Phosphatase 198 H Total Protein 7.0 # Albumin 3.3 Globulin 3.70 H Albumin/Globulin Ratio 0.89 Test 10/31/18 09:35 Bedside Glucose 272 H Medications Medication Current Medications IV Flush (NS 3 ml) 3 ml PER PROTOCOL IV ; Start 10/28/18 at 20:30 Ondansetron HCl (Zofran Inj) 4 mg Q6H PRN IV NAUSEA/VOMITING; Start 10/28/18 at 20:30 Acetaminophen (Tylenol Tab) 650 mg Q6H PRN PO .PAIN 1-3 OR TEMP Last administered on 10/31/18 09:25; Admin Dose 650 MG; Start 10/28/18 at 20:30 Morphine Sulfate (morphine) 2 mg Q4H PRN IV .PAIN 7-10; Start 10/28/18 at 20:30 Enoxaparin Sodium (Lovenox) 30 mg DAILY SC Last administered on 10/31/18 09:32; Admin Dose 30 MG; Start 10/29/18 at 09:00 Alprazolam (Xanax) 0.25 mg TID PRN PO ANXIETY; Start 10/28/18 at 20:30 Atorvastatin Calcium (Lipitor) 20 mg QHS PO Last administered on 10/30/18at 21:20; Admin Dose 20 MG; Start 10/28/18 at 21:00 Duloxetine HCl (Cymbalta) 30 mg DAILY PO Last administered on 10/31/18 09:25; Admin Dose 30 MG; Start 10/29/18 at 09:00 Ferrous Sulfate (Ferrous Sulfate (Ec)) 325 mg DAILY PO Last administered on 10/31/18 09:25; Admin Dose 325 MG; Start 10/29/18 at 09:00 Gabapentin (Neurontin) 400 mg Q8 PO Last administered on 10/31/18 06:40; Admin Dose 400 MG; Start 10/28/18 at 22:00 Isosorbide Dinitrate (Isordil) 10 mg TID PO Last administered on 10/30/18 13:30; Admin Dose 10 MG; Start 10/28/18 at 21:00 Nitroglycerin (Nitroglycerin (Sl Tab) 0.4 Mg) 1 tab [id number] PRN SL CHEST PAIN; Start 10/28/18 at 20:30 Ondansetron HCl (Zofran Tab) 4 mg Q4H PRN PO NAUSEA AND/OR VOMITING; Start 10/28/18 at 20:30 Pantoprazole (Protonix Tab) 40 mg AC BREAKFAST PO Last administered on 8/2/19at 06:40; Admin Dose 40 MG; Start 10/29/18 at 07:00 Senna (Senokot) 1 tab BID PO Last administered on 10/31/18at 09:26; Admin Dose 1 TAB; Start 10/28/18 at 21:00 Tramadol HCl (Ultram) 50 mg Q6H PRN PO PAIN LEVEL 7-10; Start 10/28/18 at 20:30 Miscellaneous Information 1 ea NOTE XX ; Start 10/29/18 at 12:00 Glucose (Glutose) 15 gm Q15M PRN PO DECREASED GLUCOSE; Start 10/29/18 at 12:00 Glucose (Glutose) 22.5 gm Q15M PRN PO DECREASED GLUCOSE; Start 10/29/18 at 12:00 Dextrose (D50w Syringe) 25 ml Q15M PRN IV DECREASED GLUCOSE; Start 10/29/18 at 12:00 Dextrose (D50w Syringe) 50 ml Q15M PRN IV DECREASED GLUCOSE; Start 10/29/18 at 12:00 Glucagon (Glucagen) 1 mg Q15M PRN IM DECREASED GLUCOSE; Start 10/29/18 at 12:00 Glucose (Glutose) 15 gm Q15M PRN BUCCAL DECREASED GLUCOSE; Start 10/29/18 at 12:00 Multivit/Ca Carb/ B Cmplx/FA/Prenat (Inna-Belinda) 1 tab DAILY GTB Last administ ered on 10/31/18at 09:25; Admin Dose 1 TAB; Start 10/30/18 at 09:00 Nystatin (Nystatin Cr) 1 applic BID TOP Last administered on 10/31/18at 09:27; Admin Dose 1 APPLIC; Start 10/29/18 at 21:00 Hydralazine HCl (Apresoline) 25 mg BID PO ; Start 10/30/18 at 09:00 Metoprolol Tartrate (Lopressor) 25 mg BID PO ; Start 10/30/18 at 09:00 Cefepime HCl 0.5 gm/Sodium Chloride 50 ml @ 100 mls/hr Q24H IVPB Last adm inistered on 10/30/18at 21:16; Admin Dose 100 MLS/HR; Start 10/30/18 at 20:00 Diagnostic Test (Pha) (Accu-Chek) 1 ea 02 XX ; Start 10/31/18 at 02:00 Insulin Glargine (Lantus) 5 units DAILY@2000 SC Last administered on 10/30/18at 21:32; Admin Dose 5 UNITS; Start 10/30/18 at 20:00 Insulin Aspart (Novolog Insulin Pen) NOVOLOG *MODERATE* ALGORI... Q4 SC Last administered on 10/31/18at 09:47; Admin Dose 8 UNIT; Start 10/30/18 at 17:00 OCTAVIO BOX MD Oct 31, 2018 11:35
[2018-10-31] MEDS: MEROPENEM 500MG/50 ML (PMX) 50 ML IVPB SCH ×2 (13:20→21:12)
--- NOTE | 2018-10-31 13:26 | CONS ---
Assessment/Plan Assessment/Plan Assessment/Plan (Daily) History of end-stage chronic kidney disease History of hemodialysis History of fluid and electrolyte abnormalities Ventilator dependent respiratory failure status post tracheoscopy Status post coronary artery bypass graft Chronic encephalopathy Bilateral below-knee amputations History of spina bifida history of seizure disorder History of CVA Hypertension Type 2 diabetes Long discussion with patient's daughter prior to that time Dr. Herbert spoke with both daughters who agreed to hospice care. I explained the patient is suffering with end-stage renal disease underlying infectious process and that he is actively dying. I agreed that patient is at end-of-life and that hospice care would be the most compassionate option at this point. I have made the referral to hospice care through social work service follow-up will be done with in-house general inpatient care. Consultation Date/Type/Reason Admit Date/Time Oct 28, 2018 at 19:52 Date/Time of Note DATE: 10/31/18 TIME: 13:24 Hx of Present Illness This is a very debilitated 68-year-old gentleman with end-stage renal failure who was at prior admissions to [facility] who was brought back to [facility] with abnormal lab results. Patient has a history of end-stage renal disease and ventilator dependent respiratory failure present at this time with a BUN of 120 and a creatinine of 3.5. Patient has had a stroke in the past and chronically encephalopathic unable to give any history whatsoever also has a history of coronary heart disease congestive heart failure. Patient is chronically pegged and trached with a pacemaker also. He has been seen by infectious disease diagnosed with a urinary tract infection but is also made a recommendation for conservative hospice care. I am asked to see patient and evaluate for palliative hospice care services. cannot participate Past Medical History Medical History: congestive heart failure, coronary artery disease, diabetes, high cholesterol, hypertension Home Meds Reported Medications Tramadol HCl (Tramadol HCl) 50 Mg Tablet, 50 MG PO Q6H PRN for PAIN LEVEL 7-10, #120 TAB 06/23/18 Hydralazine Hcl* (Hydralazine Hcl*) 50 Mg Tab, 50 MG PO Q8 for hypertension, #90 TAB 06/23/18 Gabapentin* (Neurontin*) 400 Mg Capsule, 400 MG PO Q8, #90 CAP 06/23/18 Insulin Isophan/Regular (Humulin 70/30) 100 Units/Ml Susp, 18 UNIT SC Q8, EA 06/23/18 Omeprazole* (Omeprazole*) 40 Mg Capsule.dr, 40 MG PO DAILY, #30 CAP 06/23/18 Metoprolol Tartrate* (Lopressor*) 50 Mg Tab, 50 MG PO Q8, #60 TAB 06/23/18 Atorvastatin Calcium* (Atorvastatin Calcium*) 20 Mg Tablet, 20 MG PO QHS, #30 TAB 06/23/18 Ondansetron Hcl* (Ondansetron Hcl*) 4 Mg Tablet, 4 MG PO Q4H PRN for NAUSEA AND OR VOMITING, TAB 11/11/17 Budesonide-Formoterol Fumarate* (Symbicort*) 160-4.5 Hfa.aer.ad, 1 PUFF INHALATION BID, #1 EACH 11/11/17 Sennosides* (Senna Lax*) 8.6 Mg Tablet, 1 TAB PO BID, TAB 11/11/17 Multivitamins* (Theragran*) 1 Tab Tab, 1 TAB PO DAILY, TAB 11/11/17 Isosorbide Dinitrate* (Isosorbide Dinitrate*) 10 Mg Tablet, 10 MG PO TID, TAB 11/11/17 Ascorbic Acid* (Vitamin C*) 500 Mg Capsule.sa, 500 MG PO DAILY, CAP 11/11/17 Pantoprazole* (Protonix*) 40 Mg Tablet.dr, 40 MG PO AC BREAKFAST, TAB 08/07/17 Apixaban* (Eliquis*) 5 Mg Tablet, 5 MG PO BID, TAB 08/07/17 Nitroglycerin* (Nitrostat*) 0.4 Mg Tab.subl, 0.4 MG SL Q5MIN PRN for CHEST PAIN, BOTTLE 05/19/17 Duloxetine Hcl* (Cymbalta*) 30 Mg Capsule.dr, 30 MG PO DAILY, CAP 05/19/17 Acetaminophen* (Acetaminophen*) 650 Mg Tablet, 650 MG PO Q6H PRN for MILD TO MODERATE PAIN, #30 TAB 03/18/17 Alprazolam* (Alprazolam*) 0.25 Mg Tablet, 0.25 MG PO TID PRN for ANXIETY, TAB 03/18/17 Ferrous Sulfate* (Ferrous Sulfate*) 325 Mg Tabec, 325 MG PO DAILY, TAB 03/18/17 Medications Current Medications IV Flush (NS 3 ml) 3 ml PER PROTOCOL IV ; Start 10/28/18 at 20:30 Ondansetron HCl (Zofran Inj) 4 mg Q6H PRN IV NAUSEA/VOMITING; Start 10/28/18 at 20:30 Acetaminophen (Tylenol Tab) 650 mg Q6H PRN PO .PAIN 1-3 OR TEMP Last administered on 10/31/18 09:25; Admin Dose 650 MG; Start 10/28/18 at 20:30 Morphine Sulfate (morphine) 2 mg Q4H PRN IV .PAIN 7-10; Start 10/28/18 at 20:30 Enoxaparin Sodium (Lovenox) 30 mg DAILY SC Last administered on 10/31/18 09:32; Admin Dose 30 MG; Start 10/29/18 at 09:00 Alprazolam (Xanax) 0.25 mg TID PRN PO ANXIETY; Start 10/28/18 at 20:30 Atorvastatin Calcium (Lipitor) 20 mg QHS PO Last administered on 10/30/18at 21:20; Admin Dose 20 MG; Start 10/28/18 at 21:00 Duloxetine HCl (Cymbalta) 30 mg DAILY PO Last administered on 10/31/18 09:25; Admin Dose 30 MG; Start 10/29/18 at 09:00 Ferrous Sulfate (Ferrous Sulfate (Ec)) 325 mg DAILY PO Last administered on 10/31/18 09:25; Admin Dose 325 MG; Start 10/29/18 at 09:00 Gabapentin (Neurontin) 400 mg Q8 PO Last administered on 10/31/18 06:40; Admin Dose 400 MG; Start 10/28/18 at 22:00 Isosorbide Dinitrate (Isordil) 10 mg TID PO Last administered on 10/30/18 13:30; Admin Dose 10 MG; Start 10/28/18 at 21:00 Nitroglycerin (Nitroglycerin (Sl Tab) 0.4 Mg) 1 tab [id number] PRN SL CHEST PAIN; Start 10/28/18 at 20:30 Ondansetron HCl (Zofran Tab) 4 mg Q4H PRN PO NAUSEA AND/OR VOMITING; Start 10/28/18 at 20:30 Pantoprazole (Protonix Tab) 40 mg AC BREAKFAST PO Last administered on 8/ 2/19at 06:40; Admin Dose 40 MG; Start 10/29/18 at 07:00 Senna (Senokot) 1 tab BID PO Last administered on 10/31/18at 09:26; Admin Dose 1 TAB; Start 10/28/18 at 21:00 Tramadol HCl (Ultram) 50 mg Q6H PRN PO PAIN LEVEL 7-10; Start 10/28/18 at 20:30 Miscellaneous Information 1 ea NOTE XX ; Start 10/29/18 at 12:00 Glucose (Glutose) 15 gm Q15M PRN PO DECREASED GLUCOSE; Start 10/29/18 at 12:00 Glucose (Glutose) 22.5 gm Q15M PRN PO DECREASED GLUCOSE; Start 10/29/18 at 12:00 Dextrose (D50w Syringe) 25 ml Q15M PRN IV DECREASED GLUCOSE; Start 10/29/18 at 12:00 Dextrose (D50w Syringe) 50 ml Q15M PRN IV DECREASED GLUCOSE; Start 10/29/18 at 12:00 Glucagon (Glucagen) 1 mg Q15M PRN IM DECREASED GLUCOSE; Start 10/29/18 at 12:00 Glucose (Glutose) 15 gm Q15M PRN BUCCAL DECREASED GLUCOSE; Start 10/29/18 at 12:00 Multivit/Ca Carb/ B Cmplx/FA/Prenat (Inna-Belinda) 1 tab DAILY GTB Last administered on 10/31/18at 09:25; Admin Dose 1 TAB; Start 10/30/18 at 09:00 Nystatin (Nystatin Cr) 1 applic BID TOP Last administered on 10/31/18at 09:27; Admin Dose 1 APPLIC; Start 10/29/18 at 21:00 Hydralazine HCl (Apresoline) 25 mg BID PO ; Start 10/30/18 at 09:00 Metoprolol Tartrate (Lopressor) 25 mg BID PO ; Start 10/30/18 at 09:00 Diagnostic Test (Pha) (Accu-Chek) 1 ea 02 XX ; Start 10/31/18 at 02:00 Insulin Glargine (Lantus) 5 units DAILY@2000 SC Last administered on 10/30/18at 21:32; Admin Dose 5 UNITS; Start 10/30/18 at 20:00 Insulin Aspart (Novolog Insulin Pen) NOVOLOG *MODERATE* ALGORI... Q4 SC Last administered on 10/31/18at 09:47; Admin Dose 8 UNIT; Start 10/30/18 at 17:00 Meropenem/Sodium Chloride 50 ml @ 100 mls/hr Q12 IVPB ; Start 10/31/18 at 12:30 Mupirocin (Bactroban) 1 applic BID TOP ; Start 10/31/18 at 21:00 Allergies: Coded Allergies: ciprofloxacin (Verified Allergy, Mild, ITCHINESS, RASH , 07/30/18) Penicillins (Verified Allergy, Unknown, 07/30/18) garlic (Verified Allergy, Unknown, 07/30/18) STOMACH UPSET linagliptin (Verified Allergy, Unknown, pancreatitis, 07/30/18) morphine (Verified Allergy, Unknown, 07/30/18) povidone-iodine (Verified Allergy, Unknown, RASH, 07/30/18) soap (Verified Allergy, Unknown, RASH, 07/30/18) Past Surgical History Past Surgical Hx: coronary bypass surgery, other Social History Smoking Status: Never smoker Exam/Review of Systems Exam Vitals Vital Signs Date Temp Pulse Resp B/P (MAP) Pulse Ox O2 O2 Flow FiO2 Time Delivery Rate 10/31/18 Mechanical 12:08 Ventilator 10/31/18 99.9 60 18 93/46 (62) 99 11:03 10/31/18 35 07:53 Intake and Output 10/30/18 10/30/18 10/31/18 1515:00 23:00 07:00 IntakeIntake Total 100 ml 820 ml 100 ml OutputOutput Total 200 ml 100 ml BalanceBalance 100 ml 620 ml 0 ml Constitutional: non-verbal, distress, frail ENMT: nl external ears & nose, nl lips & teeth, nl nasal mucosa & septum Respiratory: congested cough, crackles/rales, diminished breath sounds, intercostal retraction, labored breathing Cardiovascular: regular rate and rhythm Gastrointestinal: bowel sounds Neurological: unresponsive Results Result Diagram: 10/31/18 0607 10/31/18 0607 Results 24hrs Laboratory Tests Test 10/30/18 18:03 10/30/18 21:15 10/31/18 01:03 10/31/18 02:21 Bedside Glucose 322 H 319 H 315 H 325 H Test 10/31/18 03:17 10/31/18 05:26 10/31/18 06:07 10/31/18 09:35 Bedside Glucose 319 H 308 H 272 H White Blood Count 12.1 #H Red Blood Count 2.50 L Hemoglobin 6.6 *L Hematocrit 20.8 L Mean Corpuscular Volume 83.2 Mean Corpuscular 26.4 L Hemoglobin Mean Corpuscular 31.7 L Hemoglobin Concent Red Cell Distribution 17.9 H Width Platelet Count 153 Mean Platelet Volume 11.4 H Immature Granulocytes % 1.700 H Neutrophils % 83.2 H Segmented Neutrophils 87 H % (Manual) Band Neutrophils % 4 (Manual) Lymphocytes % 6.3 L Lymphocytes % (Manual) 3 L Reactive Lymphocytes 2 H % (Manual) Monocytes % 7.0 Monocytes % (Manual) 3 Eosinophils % 1.6 Eosinophils % (Manual) 1 Basophils % 0.2 Nucleated Red Blood 0.0 Cells % Immature Granulocytes # 0.210 H Neutrophils # 10.1 H Neutrophils # (Manual) 10.6 H Band Neutrophils # 0.4 Lymphocytes (Manual) 0.3 L Lymphocytes # 0.8 Reactive Lymphocytes # 0.2 H Monocytes # 0.9 Monocytes # (Manual) 0.3 Eosinophils # 0.2 Basophils # 0.0 Nucleated Red Blood 0.0 Cells # Pathologist YES Review (Hematology) Platelet Estimate NORMAL Giant Platelets 1 H Polychromasia 2+ Poikilocytosis 1+ Anisocytosis 1+ Microcytosis 1+ Spherocytes 1+ Ovalocytes 1+ Prothrombin Time 17.7 H Prothrombin Time Ratio 1.4 INR International 1.45 Normalized Ratio Activated 39.5 H Partial Thromboplast Time Sodium Level 121 L Potassium Level 3.1 L Chloride Level 78 L Carbon Dioxide Level 26 Anion Gap 17 H Blood Urea Nitrogen 150 H Creatinine 4.75 H Est Glomerular Filtrat 12 L Rate mL/min Glucose Level 245 H Calcium Level 8.2 L Magnesium Level 3.7 H Total Bilirubin 0.3 Direct Bilirubin 0.00 Indirect Bilirubin 0.3 Aspartate Amino 104 H Transf (AST/SGOT) Alanine 83 H Aminotransferase (ALT/SG PT) Alkaline Phosphatase 198 H Total Protein 7.0 # Albumin 3.3 Globulin 3.70 H Albumin/Globulin Ratio 0.89 Medications Medication Current Medications IV Flush (NS 3 ml) 3 ml PER PROTOCOL IV ; Start 10/28/18 at 20:30 Ondansetron HCl (Zofran Inj) 4 mg Q6H PRN IV NAUSEA/VOMITING; Start 10/28/18 at 20:30 Acetaminophen (Tylenol Tab) 650 mg Q6H PRN PO .PAIN 1-3 OR TEMP Last administered on 10/31/18 09:25; Admin Dose 650 MG; Start 10/28/18 at 20:30 Morphine Sulfate (morphine) 2 mg Q4H PRN IV .PAIN 7-10; Start 10/28/18 at 20:30 Enoxaparin Sodium (Lovenox) 30 mg DAILY SC Last administered on 10/31/18 09:32; Admin Dose 30 MG; Start 10/29/18 at 09:00 Alprazolam (Xanax) 0.25 mg TID PRN PO ANXIETY; Start 10/28/18 at 20:30 Atorvastatin Calcium (Lipitor) 20 mg QHS PO Last administered on 10/30/18 21:20; Admin Dose 20 MG; Start 10/28/18 at 21:00 Duloxetine HCl (Cymbalta) 30 mg DAILY PO Last administered on 10/31/18 09:25; Admin Dose 30 MG; Start 10/29/18 at 09:00 Ferrous Sulfate (Ferrous Sulfate (Ec)) 325 mg DAILY PO Last administered on 10/31/18 09:25; Admin Dose 325 MG; Start 10/29/18 at 09:00 Gabapentin (Neurontin) 400 mg Q8 PO Last administered on 10/31/18 06:40; Admin Dose 400 MG; Start 10/28/18 at 22:00 Isosorbide Dinitrate (Isordil) 10 mg TID PO Last administered on 10/30/18 13:30; Admin Dose 10 MG; Start 10/28/18 at 21:00 Nitroglycerin (Nitroglycerin (Sl Tab) 0.4 Mg) 1 tab [id number] PRN SL CHEST PAIN; Start 10/28/18 at 20:30 Ondansetron HCl (Zofran Tab) 4 mg Q4H PRN PO NAUSEA AND/OR VOMITING; Start 10/28/18 at 20:30 Pantoprazole (Protonix Tab) 40 mg AC BREAKFAST PO Last administered on 10/31/18 06:40; Admin Dose 40 MG; Start 10/29/18 at 07:00 Senna (Senokot) 1 tab BID PO Last administered on 8/2/19at 09:26; Admin Dose 1 TAB; Start 10/28/18 at 21:00 Tramadol HCl (Ultram) 50 mg Q6H PRN PO PAIN LEVEL 7-10; Start 10/28/18 at 20:30 Miscellaneous Information 1 ea NOTE XX ; Start 10/29/18 at 12:00 Glucose (Glutose) 15 gm Q15M PRN PO DECREASED GLUCOSE; Start 10/29/18 at 12:00 Glucose (Glutose) 22.5 gm Q15M PRN PO DECREASED GLUCOSE; Start 10/29/18 at 12:0 0 Dextrose (D50w Syringe) 25 ml Q15M PRN IV DECREASED GLUCOSE; Start 10/29/18 at 12:00 Dextrose (D50w Syringe) 50 ml Q15M PRN IV DECREASED GLUCOSE; Start 10/29/18 at 12:00 Glucagon (Glucagen) 1 mg Q15M PRN IM DECREASED GLUCOSE; Start 10/29/18 at 12:00 Glucose (Glutose) 15 gm Q15M PRN BUCCAL DECREASED GLUCOSE; Start 10/29/18 at 12:00 Multivit/Ca Carb/ B Cmplx/FA/Prenat (Inna-Belinda) 1 tab DAILY GTB Last administered on 10/31/18at 09:25; Admin Dose 1 TAB; Start 10/30/18 at 09:00 Nystatin (Nystatin Cr) 1 applic BID TOP Last administered on 10/31/18at 09:27; Admin Dose 1 APPLIC; Start 10/29/18 at 21:00 Hydralazine HCl (Apresoline) 25 mg BID PO ; Start 10/30/18 at 09:00 Metoprolol Tartrate (Lopressor) 25 mg BID PO ; Start 10/30/18 at 09:00 Diagnostic Test (Pha) (Accu-Chek) 1 ea 02 XX ; Start 10/31/18 at 02:00 Insulin Glargine (Lantus) 5 units DAILY@2000 SC Last administered on 10/30/18at 21:32; Admin Dose 5 UNITS; Start 10/30/18 at 20:00 Insulin Aspart (Novolog Insulin Pen) NOVOLOG *MODERATE* ALGORI... Q4 SC Last administered on 10/31/18at 09:47; Admin Dose 8 UNIT; Start 8/1/19 at 17:00 Meropenem/Sodium Chloride 50 ml @ 100 mls/hr Q12 IVPB ; Start 10/31/18 at 12:30 Mupirocin (Bactroban) 1 applic BID TOP ; Start 10/31/18 at 21:00 WILTON LERNER Oct 31, 2018 13:26
--- NOTE | 2018-10-31 14:32 | PN ---
Date/Time of Note Date/Time of Note DATE: 10/31/18 TIME: 14:31 Assessment/Plan VTE Prophylaxis Risk score (from [facility])>0 risk: 7 SCD applied (from [facility]): No SCD contraindicated: other Pharmacological prophylaxis: LMWH Lines/Catheters IV Catheter Type [facility]from [facility] [place] Urinary Cath still in place: Yes Reason Cath still needed: skin wounds contaminated by urine Assessment/Plan Hospital Course 1) Worsening renal failure - family opted against hemodialysis - patient is DNR 2) respiratory failure - on trach, is stable 3) coronary artery disease - no evidence of acute exacerbation Result Diagram: 10/31/18 0607 10/31/18 0607 Results 24hrs Laboratory Tests Test 10/30/18 18:03 10/30/18 21:15 10/31/18 01:03 10/31/18 02:21 Bedside Glucose 322 H 319 H 315 H 325 H Test 10/31/18 03:17 10/31/18 05:26 10/31/18 06:07 10/31/18 09:35 Bedside Glucose 319 H 308 H 272 H White Blood Count 12.1 #H Red Blood Count 2.50 L Hemoglobin 6.6 *L Hematocrit 20.8 L Mean Corpuscular Volume 83.2 Mean Corpuscular 26.4 L Hemoglobin Mean Corpuscular 31.7 L Hemoglobin Concent Red Cell Distribution 17.9 H Width Platelet Count 153 Mean Platelet Volume 11.4 H Immature Granulocytes % 1.700 H Neutrophils % 83.2 H Segmented Neutrophils 87 H % (Manual) Band Neutrophils % 4 (Manual) Lymphocytes % 6.3 L Lymphocytes % (Manual) 3 L Reactive Lymphocytes 2 H % (Manual) Monocytes % 7.0 Monocytes % (Manual) 3 Eosinophils % 1.6 Eosinophils % (Manual) 1 Basophils % 0.2 Nucleated Red Blood 0.0 Cells % Immature Granulocytes # 0.210 H Neutrophils # 10.1 H Neutrophils # (Manual) 10.6 H Band Neutrophils # 0.4 Lymphocytes (Manual) 0.3 L Lymphocytes # 0.8 Reactive Lymphocytes # 0.2 H Monocytes # 0.9 Monocytes # (Manual) 0.3 Eosinophils # 0.2 Basophils # 0.0 Nucleated Red Blood 0.0 Cells # Pathologist YES Review (Hematology) Platelet Estimate NORMAL Giant Platelets 1 H Polychromasia 2+ Poikilocytosis 1+ Anisocytosis 1+ Microcytosis 1+ Spherocytes 1+ Ovalocytes 1+ Prothrombin Time 17.7 H Prothrombin Time Ratio 1.4 INR International 1.45 Normalized Ratio Activated 39.5 H Partial Thromboplast Time Sodium Level 121 L Potassium Level 3.1 L Chloride Level 78 L Carbon Dioxide Level 26 Anion Gap 17 H Blood Urea Nitrogen 150 H Creatinine 4.75 H Est Glomerular Filtrat 12 L Rate mL/min Glucose Level 245 H Calcium Level 8.2 L Magnesium Level 3.7 H Total Bilirubin 0.3 Direct Bilirubin 0.00 Indirect Bilirubin 0.3 Aspartate Amino 104 H Transf (AST/SGOT) Alanine 83 H Aminotransferase (ALT/SG PT) Alkaline Phosphatase 198 H Total Protein 7.0 # Albumin 3.3 Globulin 3.70 H Albumin/Globulin Ratio 0.89 Test 10/31/18 13:09 Bedside Glucose 307 H Subjective 24 Hr Interval Summary Free Text/Dictation Patient remain unresponsive, family (2 sisters) states that the patient would not want to be placed on hemodialysis Exam/Review of Systems Exam Vitals Vital Signs Date Temp Pulse Resp B/P (MAP) Pulse Ox O2 O2 Flow FiO2 Time Delivery Rate 10/31/18 Mechanical 12:08 Ventilator 10/31/18 99.9 60 18 93/46 (62) 99 11:03 10/31/18 35 07:53 Intake and Output 10/30/18 10/30/18 10/31/18 1515:00 23:00 07:00 IntakeIntake Total 100 ml 820 ml 100 ml OutputOutput Total 200 ml 100 ml BalanceBalance 100 ml 620 ml 0 ml Constitutional: well developed Head: normocephalic, atraumatic Neck: supple Respiratory: diminished breath sounds Cardiovascular: regular rate and rhythm Gastrointestinal: soft, non-tender Extremities: normal pulses Results Results 24hrs Laboratory Tests Test 10/30/18 18:03 10/30/18 21:15 10/31/18 01:03 10/31/18 02:21 Bedside Glucose 322 H 319 H 315 H 325 H Test 10/31/18 03:17 10/31/18 05:26 10/31/18 06:07 10/31/18 09:35 Bedside Glucose 319 H 308 H 272 H White Blood Count 12.1 #H Red Blood Count 2.50 L Hemoglobin 6.6 *L Hematocrit 20.8 L Mean Corpuscular Volume 83.2 Mean Corpuscular 26.4 L Hemoglobin Mean Corpuscular 31.7 L Hemoglobin Concent Red Cell Distribution 17.9 H Width Platelet Count 153 Mean Platelet Volume 11.4 H Immature Granulocytes % 1.700 H Neutrophils % 83.2 H Segmented Neutrophils 87 H % (Manual) Band Neutrophils % 4 (Manual) Lymphocytes % 6.3 L Lymphocytes % (Manual) 3 L Reactive Lymphocytes 2 H % (Manual) Monocytes % 7.0 Monocytes % (Manual) 3 Eosinophils % 1.6 Eosinophils % (Manual) 1 Basophils % 0.2 Nucleated Red Blood 0.0 Cells % Immature Granulocytes # 0.210 H Neutrophils # 10.1 H Neutrophils # (Manual) 10.6 H Band Neutrophils # 0.4 Lymphocytes (Manual) 0.3 L Lymphocytes # 0.8 Reactive Lymphocytes # 0.2 H Monocytes # 0.9 Monocytes # (Manual) 0.3 Eosinophils # 0.2 Basophils # 0.0 Nucleated Red Blood 0.0 Cells # Pathologist YES Review (Hematology) Platelet Estimate NORMAL Giant Platelets 1 H Polychromasia 2+ Poikilocytosis 1+ Anisocytosis 1+ Microcytosis 1+ Spherocytes 1+ Ovalocytes 1+ Prothrombin Time 17.7 H Prothrombin Time Ratio 1.4 INR International 1.45 Normalized Ratio Activated 39.5 H Partial Thromboplast Time Sodium Level 121 L Potassium Level 3.1 L Chloride Level 78 L Carbon Dioxide Level 26 Anion Gap 17 H Blood Urea Nitrogen 150 H Creatinine 4.75 H Est Glomerular Filtrat 12 L Rate mL/min Glucose Level 245 H Calcium Level 8.2 L Magnesium Level 3.7 H Total Bilirubin 0.3 Direct Bilirubin 0.00 Indirect Bilirubin 0.3 Aspartate Amino 104 H Transf (AST/SGOT) Alanine 83 H Aminotransferase (ALT/SG PT) Alkaline Phosphatase 198 H Total Protein 7.0 # Albumin 3.3 Globulin 3.70 H Albumin/Globulin Ratio 0.89 Test 10/31/18 13:09 Bedside Glucose 307 H Medications Medication Current Medications IV Flush (NS 3 ml) 3 ml PER PROTOCOL IV ; Start 10/28/18 at 20:30 Ondansetron HCl (Zofran Inj) 4 mg Q6H PRN IV NAUSEA/VOMITING; Start 10/28/18 at 20:30 Acetaminophen (Tylenol Tab) 650 mg Q6H PRN PO .PAIN 1-3 OR TEMP Last administered on 10/31/18at 09:25; Admin Dose 650 MG; Start 10/28/18 at 20:30 Morphine Sulfate (morphine) 2 mg Q4H PRN IV .PAIN 7-10; Start 10/28/18 at 20:30 Enoxaparin Sodium (Lovenox) 30 mg DAILY SC Last administered on 10/31/18 09:32; Admin Dose 30 MG; Start 10/29/18 at 09:00 Alprazolam (Xanax) 0.25 mg TID PRN PO ANXIETY; Start 10/28/18 at 20:30 Atorvastatin Calcium (Lipitor) 20 mg QHS PO Last administered on 10/30/18 21:20; Admin Dose 20 MG; Start 10/28/18 at 21:00 Duloxetine HCl (Cymbalta) 30 mg DAILY PO Last administered on 10/31/18 09:25; Admin Dose 30 MG; Start 10/29/18 at 09:00 Ferrous Sulfate (Ferrous Sulfate (Ec)) 325 mg DAILY PO Last administered on 10/31/18 09:25; Admin Dose 325 MG; Start 10/29/18 at 09:00 Gabapentin (Neurontin) 400 mg Q8 PO Last administered on 10/31/18 06:40; Admin Dose 400 MG; Start 10/28/18 at 22:00 Isosorbide Dinitrate (Isordil) 10 mg TID PO Last administered on 10/30/18 13:30; Admin Dose 10 MG; Start 10/28/18 at 21:00 Nitroglycerin (Nitroglycerin (Sl Tab) 0.4 Mg) 1 tab [id number] PRN SL CHEST PAIN; Start 10/28/18 at 20:30 Ondansetron HCl (Zofran Tab) 4 mg Q4H PRN PO NAUSEA AND/OR VOMITING; Start 10/28/18 at 20:30 Pantoprazole (Protonix Tab) 40 mg AC BREAKFAST PO Last administered on 10/31/18 06:40; Admin Dose 40 MG; Start 10/29/18 at 07:00 Senna (Senokot) 1 tab BID PO Last administered on 10/31/18 09:26; Admin Dose 1 TAB; Start 10/28/18 at 21:00 Tramadol HCl (Ultram) 50 mg Q6H PRN PO PAIN LEVEL 7-10; Start 10/28/18 at 20:30 Miscellaneous Information 1 ea NOTE XX ; Start 10/29/18 at 12:00 Glucose (Glutose) 15 gm Q15M PRN PO DECREASED GLUCOSE; Start 10/29/18 at 12:00 Glucose (Glutose) 22.5 gm Q15M PRN PO DECREASED GLUCOSE; Start 10/29/18 at 12:00 Dextrose (D50w Syringe) 25 ml Q15M PRN IV DECREASED GLUCOSE; Start 10/29/18 at 12:00 Dextrose (D50w Syringe) 50 ml Q15M PRN IV DECREASED GLUCOSE; Start 10/29/18 at 12:00 Glucagon (Glucagen) 1 mg Q15M PRN IM DECREASED GLUCOSE; Start 10/29/18 at 12:00 Glucose (Glutose) 15 gm Q15M PRN BUCCAL DECREASED GLUCOSE; Start 10/29/18 at 12:00 Multivit/Ca Carb/ B Cmplx/FA/Prenat (Inna-Belinda) 1 tab DAILY GTB Last administered on 10/31/18at 09:25; Admin Dose 1 TAB; Start 10/30/18 at 09:00 Nystatin (Nystatin Cr) 1 applic BID TOP Last administered on 10/31/18at 09:27; Admin Dose 1 APPLIC; Start 10/29/18 at 21:00 Hydralazine HCl (Apresoline) 25 mg BID PO ; Start 10/30/18 at 09:00 Metoprolol Tartrate (Lopressor) 25 mg BID PO ; Start 10/30/18 at 09:00 Diagnostic Test (Pha) (Accu-Chek) 1 ea 02 XX ; Start 10/31/18 at 02:00 Insulin Glargine (Lantus) 5 units DAILY@2000 SC Last administered on 10/30/18at 21:32; Admin Dose 5 UNITS; Start 10/30/18 at 20:00 Insulin Aspart (Novolog Insulin Pen) NOVOLOG *MODERATE* ALGORI... Q4 SC Last administered on 10/31/18at 13:25; Admin Dose 10 UNIT; Start 10/30/18 at 17:00 Meropenem/Sodium Chloride 50 ml @ 100 mls/hr Q12 IVPB Last administered on 10/31/18at 13:20; Admin Dose 100 MLS/HR; Start 10/31/18 at 12:30 Mupirocin (Bactroban) 1 applic BID TOP ; Start 10/31/18 at 21:00 JACKIE SHAVER Oct 31, 2018 14:32
--- NOTE | 2018-10-31 16:11 | CONS ---
Assessment/Plan Assessment/Plan Hospital Course (Demo Recall) Patient is noncommunicative looks comfortable in no distress. Still with low- grade fevers T-max 99.8 last night. WBC 12.1 H&H 6.6 and 20.8 platelets 153 neutrophils 83.2 BUN 150 creatinine 4.75 Chest x-ray this morning revealed moderate right and small left pleural effusion right perihilar and lung base consolidation left lung base consolidation increased interstitial markings Indwelling: Trach PEG Cox Microbiology: Urine culture growing E. coli ESBL blood culture growing gram-negative rods MRSA came back positive Antimicrobials: Meropenem ALL: PCN, Cipro Physical examination: This is an obese chronically ill-appearing elderly man who is in no distress. Head atraumatic normocephalic neck is supple tracheostomy present chest rise symmetrical breath sounds diminished bases heart S1-S2 abdomen soft bowel sounds present extremities with bilateral below-knee amputation Assessment: 1. Sepsis with gram-negative adele bacteremia, present on admission 2. E. coli ESBL UTI 3. Acute on chronic kidney disease 4. Chronic respiratory failure, possible pneumonia 5. CHF 6. Diabetes 7. Peripheral arterial disease status post bilateral below-knee amputation 8. Atrial fibrillation 9. Status post permanent pacemaker and bioprosthetic valve replacement 10. History of CABG 11. MRSA colonization Plan: Patient is on appropriate antibiotic regimen we will repeat blood cultures follow nephrology and pulmonary recommendations Consultation Date/Type/Reason Admit Date/Time Oct 28, 2018 at 19:52 Initial Consult Date 10/29/18 Type of Consult id Requesting Provider: JACKIE SHAVER Date/Time of Note DATE: 10/31/18 TIME: 16:10 Exam/Review of Systems Exam Vitals Vital Signs Date Temp Pulse Resp B/P (MAP) Pulse Ox O2 O2 Flow FiO2 Time Delivery Rate 10/31/18 98.0 57 19 89/44 (59) 98 15:39 10/31/18 Mechanical 12:08 Ventilator 10/31/18 35 07:53 Intake and Output 10/30/18 10/30/18 10/31/18 1515:00 23:00 07:00 IntakeIntake Total 100 ml 820 ml 100 ml OutputOutput Total 200 ml 100 ml BalanceBalance 100 ml 620 ml 0 ml Results Result Diagram: 10/31/18 0607 10/31/18 0607 Results 24hrs Laboratory Tests Test 10/30/18 18:03 10/30/18 21:15 10/31/18 01:03 10/31/18 02:21 Bedside Glucose 322 H 319 H 315 H 325 H Test 10/31/18 03:17 10/31/18 05:26 10/31/18 06:07 10/31/18 09:35 Bedside Glucose 319 H 308 H 272 H White Blood Count 12.1 #H Red Blood Count 2.50 L Hemoglobin 6.6 *L Hematocrit 20.8 L Mean Corpuscular Volume 83.2 Mean Corpuscular 26.4 L Hemoglobin Mean Corpuscular 31.7 L Hemoglobin Concent Red Cell Distribution 17.9 H Width Platelet Count 153 Mean Platelet Volume 11.4 H Immature Granulocytes % 1.700 H Neutrophils % 83.2 H Segmented Neutrophils 87 H % (Manual) Band Neutrophils % 4 (Manual) Lymphocytes % 6.3 L Lymphocytes % (Manual) 3 L Reactive Lymphocytes 2 H % (Manual) Monocytes % 7.0 Monocytes % (Manual) 3 Eosinophils % 1.6 Eosinophils % (Manual) 1 Basophils % 0.2 Nucleated Red Blood 0.0 Cells % Immature Granulocytes # 0.210 H Neutrophils # 10.1 H Neutrophils # (Manual) 10.6 H Band Neutrophils # 0.4 Lymphocytes (Manual) 0.3 L Lymphocytes # 0.8 Reactive Lymphocytes # 0.2 H Monocytes # 0.9 Monocytes # (Manual) 0.3 Eosinophils # 0.2 Basophils # 0.0 Nucleated Red Blood 0.0 Cells # Pathologist YES Review (Hematology) Platelet Estimate NORMAL Giant Platelets 1 H Polychromasia 2+ Poikilocytosis 1+ Anisocytosis 1+ Microcytosis 1+ Spherocytes 1+ Ovalocytes 1+ Prothrombin Time 17.7 H Prothrombin Time Ratio 1.4 INR International 1.45 Normalized Ratio Activated 39.5 H Partial Thromboplast Time Sodium Level 121 L Potassium Level 3.1 L Chloride Level 78 L Carbon Dioxide Level 26 Anion Gap 17 H Blood Urea Nitrogen 150 H Creatinine 4.75 H Est Glomerular Filtrat 12 L Rate mL/min Glucose Level 245 H Calcium Level 8.2 L Magnesium Level 3.7 H Total Bilirubin 0.3 Direct Bilirubin 0.00 Indirect Bilirubin 0.3 Aspartate Amino 104 H Transf (AST/SGOT) Alanine 83 H Aminotransferase (ALT/SG PT) Alkaline Phosphatase 198 H Total Protein 7.0 # Albumin 3.3 Globulin 3.70 H Albumin/Globulin Ratio 0.89 Test 10/31/18 13:09 Bedside Glucose 307 H Medications Medication Current Medications IV Flush (NS 3 ml) 3 ml PER PROTOCOL IV ; Start 10/28/18 at 20:30 Ondansetron HCl (Zofran Inj) 4 mg Q6H PRN IV NAUSEA/VOMITING; Start 10/28/18 at 20:30 Acetaminophen (Tylenol Tab) 650 mg Q6H PRN PO .PAIN 1-3 OR TEMP Last administered on 10/31/18 09:25; Admin Dose 650 MG; Start 10/28/18 at 20:30 Morphine Sulfate (morphine) 2 mg Q4H PRN IV .PAIN 7-10; Start 10/28/18 at 20:30 Enoxaparin Sodium (Lovenox) 30 mg DAILY SC Last administered on 10/31/18 09:32; Admin Dose 30 MG; Start 10/29/18 at 09:00 Alprazolam (Xanax) 0.25 mg TID PRN PO ANXIETY; Start 10/28/18 at 20:30 Atorvastatin Calcium (Lipitor) 20 mg QHS PO Last administered on 10/30/18 21:2 0; Admin Dose 20 MG; Start 10/28/18 at 21:00 Duloxetine HCl (Cymbalta) 30 mg DAILY PO Last administered on 10/31/18 09:25; Admin Dose 30 MG; Start 10/29/18 at 09:00 Ferrous Sulfate (Ferrous Sulfate (Ec)) 325 mg DAILY PO Last administered on 10/31/18 09:25; Admin Dose 325 MG; Start 10/29/18 at 09:00 Gabapentin (Neurontin) 400 mg Q8 PO Last administered on 10/31/18 06:40; Admin Dose 400 MG; Start 10/28/18 at 22:00 Isosorbide Dinitrate (Isordil) 10 mg TID PO Last administered on 10/30/18 13:30; Admin Dose 10 MG; Start 10/28/18 at 21:00 Nitroglycerin (Nitroglycerin (Sl Tab) 0.4 Mg) 1 tab [id number] PRN SL CHEST PAIN; Start 10/28/18 at 20:30 Ondansetron HCl (Zofran Tab) 4 mg Q4H PRN PO NAUSEA AND/OR VOMITING; Start 10/28/18 at 20:30 Pantoprazole (Protonix Tab) 40 mg AC BREAKFAST PO Last administered on 10/31/18at 06:40; Admin Dose 40 MG; Start 10/29/18 at 07:00 Senna (Senokot) 1 tab BID PO Last administered on 10/31/18at 09:26; Admin Dose 1 TAB; Start 10/28/18 at 21:00 Tramadol HCl (Ultram) 50 mg Q6H PRN PO PAIN LEVEL 7-10; Start 10/28/18 at 20:30 Miscellaneous Information 1 ea NOTE XX ; Start 10/29/18 at 12:00 Glucose (Glutose) 15 gm Q15M PRN PO DECREASED GLUCOSE; Start 10/29/18 at 12:00 Glucose (Glutose) 22.5 gm Q15M PRN PO DECREASED GLUCOSE; Start 10/29/18 at 12:00 Dextrose (D50w Syringe) 25 ml Q15M PRN IV DECREASED GLUCOSE; Start 10/29/18 at 12:00 Dextrose (D50w Syringe) 50 ml Q15M PRN IV DECREASED GLUCOSE; Start 10/29/18 at 12:00 Glucagon (Glucagen) 1 mg Q15M PRN IM DECREASED GLUCOSE; Start 10/29/18 at 12:00 Glucose (Glutose) 15 gm Q15M PRN BUCCAL DECREASED GLUCOSE; Start 10/29/18 at 12:00 Multivit/Ca Carb/ B Cmplx/FA/Prenat (Inna-Belinda) 1 tab DAILY GTB Last adm inistered on 10/31/18at 09:25; Admin Dose 1 TAB; Start 10/30/18 at 09:00 Nystatin (Nystatin Cr) 1 applic BID TOP Last administered on 10/31/18at 09:27; Admin Dose 1 APPLIC; Start 10/29/18 at 21:00 Hydralazine HCl (Apresoline) 25 mg BID PO ; Start 10/30/18 at 09:00 Metoprolol Tartrate (Lopressor) 25 mg BID PO ; Start 10/30/18 at 09:00 Diagnostic Test (Pha) (Accu-Chek) 1 ea 02 XX ; Start 10/31/18 at 02:00 Insulin Glargine (Lantus) 5 units DAILY@2000 SC Last administered on 10/30/18at 21:32; Admin Dose 5 UNITS; Start 10/30/18 at 20:00 Insulin Aspart (Novolog Insulin Pen) NOVOLOG *MODERATE* ALGORI... Q4 SC Last administered on 10/31/18at 13:25; Admin Dose 10 UNIT; Start 10/30/18 at 17:00 Meropenem/Sodium Chloride 50 ml @ 100 mls/hr Q12 IVPB Last administered on 10/31/18at 13:20; Admin Dose 100 MLS/HR; Start 10/31/18 at 12:30 Mupirocin (Bactroban) 1 applic BID TOP ; Start 10/31/18 at 21:00 FRANNIE HURTADO NP Oct 31, 2018 16:11
[2018-10-31] MEDS: ATORVASTATIN 20 MG TAB PO SCH (21:05)
[2018-10-31] MEDS: MUPIROCIN 2% 22 GM OINT TOP SCH (21:05)
[2018-10-31] MEDS: INSULIN GLARGINE [LANTus] (100 UNITS/ML) SYG SC SCH (21:32)
[2018-11-01] VITALS (17 sets, daily range): BP systolic 84–108; BP diastolic 41–55; PULSE 60; RESP 15–22
[2018-11-01] MEDS: INSULIN ASPART [NOVOLOG] 3 ML PEN SC SCH ×6 (00:58→21:02)
[2018-11-01] MEDS: ACCU-CHEK XX SCH (01:00)
[2018-11-01] MEDS: GABAPENTIN 400 MG CAP PO SCH ×3 (05:06→21:04)
[2018-11-01] MEDS: LANSOPRAZOLE 30 MG CAP GTB SCH (06:58)
[2018-11-01] MEDS: ISOSORBIDE DINITRATE 10 MG TAB PO SCH ×3 (08:35→21:00)
[2018-11-01] MEDS: METOPROLOL 50 MG TAB PO SCH ×2 (08:35→21:00)
[2018-11-01] MEDS: DULOXETINE 30 MG CAP DR PO SCH (08:36)
[2018-11-01] MEDS: FERROUS SULFATE (EC) 325 MG TAB PO SCH (08:46)
[2018-11-01] MEDS: MULTIVIT/CA CARB/B CMPLX/FA TAB GTB SCH (08:46)
[2018-11-01] MEDS: SENNA TAB PO SCH ×2 (08:46→21:01)
[2018-11-01] MEDS: MEROPENEM 500MG/50 ML (PMX) 50 ML IVPB SCH ×2 (08:47→20:59)
[2018-11-01] MEDS: MUPIROCIN 2% 22 GM OINT TOP SCH ×2 (08:51→21:03)
[2018-11-01] MEDS: BALSAM PERU/CASTOR OIL 60 GM TUBE TOP SCH ×2 (08:52→21:04)
[2018-11-01] MEDS: NYSTATIN 15 GM CR TOP SCH ×2 (08:52→21:04)
[2018-11-01] MEDS: ENOXAPARIN 30 MG/0.3 ML SYG SC SCH (09:08)
--- NOTE | 2018-11-01 11:54 | PN ---
Date/Time of Note Date/Time of Note DATE: 11/01/18 TIME: 11:53 Assessment/Plan VTE Prophylaxis Risk [place] [facility] [place] risk: 4 SCD applied (from [facility] [place] No SCD contraindicated: other Pharmacological prophylaxis: LMWH Lines/Catheters IV Catheter Type (from [facility] [place] Urinary Cath still in place: Yes Reason Cath still needed: skin wounds contaminated by urine Assessment/Plan Hospital Course 1) Worsening renal failure - family opted against hemodialysis - patient is DNR 2) respiratory failure - on trach, is stable 3) coronary artery disease - no evidence of acute exacerbation Result Diagram: 10/31/18 0607 10/31/18 0607 Results 24hrs Laboratory Tests Test 10/31/18 13:09 10/31/18 17:13 10/31/18 21:03 11/01/18 00:51 Bedside Glucose 307 H 278 H 222 H 232 H Test 11/01/18 05:05 11/01/18 08:45 Bedside Glucose 231 H 232 H Subjective 24 Hr Interval Summary Free Text/Dictation Patient is not responsive, on vent Exam/Review of Systems Exam Vitals Vital Signs Date Temp Pulse Resp B/P (MAP) Pulse Ox O2 O2 Flow FiO2 Time Delivery Rate 11/01/18 112 16 95 35 11:45 11/01/18 99.1 108/55 Trach 11:37 (72) Collar Intake and Output 10/31/18 10/31/18 11/01/18 1515:00 23:00 07:00 IntakeIntake Total 435 ml 720 ml 660 ml OutputOutput Total 200 ml 100 ml 190 ml BalanceBalance 235 ml 620 ml 470 ml Constitutional: well developed Head: normocephalic, atraumatic Neck: supple Respiratory: diminished breath sounds Cardiovascular: regular rate and rhythm Gastrointestinal: soft, non-tender Extremities: normal pulses Results Results 24hrs Laboratory Tests Test 10/31/18 13:09 10/31/18 17:13 10/31/18 21:03 11/01/18 00:51 Bedside Glucose 307 H 278 H 222 H 232 H Test 11/01/18 05:05 11/01/18 08:45 Bedside Glucose 231 H 232 H Medications Medication Current Medications IV Flush (NS 3 ml) 3 ml PER PROTOCOL IV ; Start 10/28/18 at 20:30 Ondansetron HCl (Zofran Inj) 4 mg Q6H PRN IV NAUSEA/VOMITING; Start 10/28/18 at 20:30 Acetaminophen (Tylenol Tab) 650 mg Q6H PRN PO .PAIN 1-3 OR TEMP Last administered on 10/31/18 09:25; Admin Dose 650 MG; Start 10/28/18 at 20:30 Morphine Sulfate (morphine) 2 mg Q4H PRN IV .PAIN 7-10; Start 10/28/18 at 20:30 Enoxaparin Sodium (Lovenox) 30 mg DAILY SC Last administered on 11/01/18 09:08; Admin Dose 30 MG; Start 10/29/18 at 09:00 Alprazolam (Xanax) 0.25 mg TID PRN PO ANXIETY; Start 10/28/18 at 20:30 Atorvastatin Calcium (Lipitor) 20 mg QHS PO Last administered on 10/31/18 21:05; Admin Dose 20 MG; Start 10/28/18 at 21:00 Duloxetine HCl (Cymbalta) 30 mg DAILY PO Last administered on 10/31/18 09:25; Admin Dose 30 MG; Start 10/29/18 at 09:00 Ferrous Sulfate (Ferrous Sulfate (Ec)) 325 mg DAILY PO Last administered on 11/01/18 08:46; Admin Dose 325 MG; Start 10/29/18 at 09:00 Gabapentin (Neurontin) 400 mg Q8 PO Last administered on 11/01/18 05:06; Admin Dose 400 MG; Start 10/28/18 at 22:00 Isosorbide Dinitrate (Isordil) 10 mg TID PO Last administered on 10/30/18 13:30; Admin Dose 10 MG; Start 10/28/18 at 21:00 Nitroglycerin (Nitroglycerin (Sl Tab) 0.4 Mg) 1 tab [id number] PRN SL CHEST PAIN; Start 10/28/18 at 20:30 Ondansetron HCl (Zofran Tab) 4 mg Q4H PRN PO NAUSEA AND/OR VOMITING; Start 10/28/18 at 20:30 Senna (Senokot) 1 tab BID PO Last administered on 11/01/18 08:46; Admin Dose 1 TAB; Start 10/28/18 at 21:00 Tramadol HCl (Ultram) 50 mg Q6H PRN PO PAIN LEVEL 7-10; Start 10/28/18 at 20:30 Miscellaneous Information 1 ea NOTE XX ; Start 10/29/18 at 12:00 Glucose (Glutose) 15 gm Q15M PRN PO DECREASED GLUCOSE; Start 10/29/18 at 12:00 Glucose (Glutose) 22.5 gm Q15M PRN PO DECREASED GLUCOSE; Start 10/29/18 at 12:00 Dextrose (D50w Syringe) 25 ml Q15M PRN IV DECREASED GLUCOSE; Start 10/29/18 at 12:00 Dextrose (D50w Syringe) 50 ml Q15M PRN IV DECREASED GLUCOSE; Start 10/29/18 at 12:00 Glucagon (Glucagen) 1 mg Q15M PRN IM DECREASED GLUCOSE; Start 10/29/18 at 12:00 Glucose (Glutose) 15 gm Q15M PRN BUCCAL DECREASED GLUCOSE; Start 10/29/18 at 12:00 Multivit/Ca Carb/ B Cmplx/FA/Prenat (Inna-Belinda) 1 tab DAILY GTB Last administered on 11/01/18at 08:46; Admin Dose 1 TAB; Start 10/30/18 at 09:00 Nystatin (Nystatin Cr) 1 applic BID TOP Last administered on 11/01/18at 08:52; Admin Dose 1 APPLIC; Start 10/29/18 at 21:00 Hydralazine HCl (Apresoline) 25 mg BID PO ; Start 10/30/18 at 09:00 Metoprolol Tartrate (Lopressor) 25 mg BID PO ; Start 10/30/18 at 09:00 Diagnostic Test (Pha) (Accu-Chek) 1 ea 02 XX ; Start 10/31/18 at 02:00 Insulin Glargine (Lantus) 5 units DAILY@2000 SC Last administered on 10/31/18at 21:32; Admin Dose 5 UNITS; Start 10/30/18 at 20:00 Insulin Aspart (Novolog Insulin Pen) NOVOLOG *MODERATE* ALGORI... Q4 SC Last administered on 11/01/18at 09:08; Admin Dose 6 UNIT; Start 10/30/18 at 17:00 Meropenem/Sodium Chloride 50 ml @ 100 mls/hr Q12 IVPB Last administered on 11/01/18at 08:47; Admin Dose 100 MLS/HR; Start 10/31/18 at 12:30 Mupirocin (Bactroban) 1 applic BID TOP Last administered on 11/01/18at 08:51; Admin Dose 1 APPLIC; Start 10/31/18 at 21:00 Lansoprazole (Prevacid) 30 mg DAILY@06 GTB Last administered on 11/01/18at 06:58; Admin Dose 30 MG; Start 11/01/18 at 06:30 JACKIE SHAVER Nov 01, 2018 11:54
--- NOTE | 2018-11-01 15:02 | CONS ---
Assessment/Plan Assessment/Plan Hospital Course (Demo Recall) ID PROGRESS NOTE CURRENT ABX: DAY # Merrem 10/31/18 0607 10/31/18 0607 24H INTERVAL SUMMARY * Low grade TMAx 99.5, vss, patient is somnolent, looks comfortable on the Vent RADIOLOGY/IMAGING/PROCEDURES * 10/31/18 CXR: There is a moderate right and small left pleural effusion. There is right perihilar and lung base consolidation. There is left lung base consolidation. There are increased interstitial markings.Follow-up to resolution to exclude underlying neoplasm. MICRO * 10/31/18 BCx (-) 48H * 10/29/18 (+)MRSA Nares * 10/29/18 BCX (+) 1/2 bottles = GNR ACBA BLOOD CULTURE Final BCULT GRAM BOTTLE 1 Gram negative rods . seen on gram stain of the broth Organism 1 ACINETOBACTER BAUMANNII A.BAUMANNI A.BAUMANNI M.I.C. RX M.I.C. RX --------- --- --------- --- AMIKACIN R CEFEPIME 32 R CEFTAZIDIME 16 I CIPROFLOXACIN >=4 R GENTAMICIN >=16 R LEVOFLOXACIN >=8 R MEROPENEM 1.5 S TOBRAMYCIN >=16 R TRIMETHOPRIM/SULFAMETHOXAZOLE >=320 R PIPERACILLIN/TAZOBACTAM 16 S * 10/28/18 URINE CX: URINE CULTURE Final Organism 1 ESCHERICHIA COLI (ESBL) COLONY COUNT >100,000 CFU/ml . MULTI DRUG RESISTANT ORGANISM PHYSICAL EXAMINATION: GENERAL: Afebrile, VSS - non-communicative, chronically ill on the Vent HEENT: AT, NC, anicteric = NECK: Supple, Trach midline CHEST: Equal chest rise bilaterally = rales HEART: Pulse RRR ABDOMEN: Soft / ND : FC intact, clear yellow urine EXTREMITIES: BLEXT BKA = stumps intact without infx + BUEXT edema = fluid overloaded SKIN: No rash, no diaphoresis ID ASSESSMENT 68 yo M admit with: 1. Sepsis with gram-negative adele bacteremia, present on admission 2. E. coli ESBL UTI 3. Acute on chronic kidney disease 4. Chronic respiratory failure, possible pneumonia * Trached 02/19/18 5. CHF 6. Diabetes 7. PAD => Hx of BLEXT BKA = stumps healed, no evidence infx 8. 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 History of CABG * ASHD w/hx of CABG (AHUJA>LAD) + AoV Replacement June 2017 (+)MRSA Nares-> Bactroban ABX ALLERGIES: NKDA INVASIVES: PIV LUEXT, Trach, Peg, FC CURRENT ABX: DAY # Merrem ID RECOMMENDATIONS/PLAN: 1. ==>Continue Merrem -- 10 day course 2. Bactroban to bilateral nares . Consultation Date/Type/Reason Admit Date/Time Oct 28, 2018 at 19:52 Initial Consult Date 10/29/18 Requesting Provider: JACKIE SHAVER Date/Time of Note DATE: 11/01/18 TIME: 14:51 Exam/Review of Systems Exam Vitals Vital Signs Date Temp Pulse Resp B/P (MAP) Pulse Ox O2 O2 Flow FiO2 Time Delivery Rate 11/01/18 112 16 95 35 11:45 11/01/18 99.1 108/55 Trach 11:37 (72) Collar Intake and Output 10/31/18 10/31/18 11/01/18 1515:00 23:00 07:00 IntakeIntake Total 435 ml 720 ml 660 ml OutputOutput Total 200 ml 100 ml 190 ml BalanceBalance 235 ml 620 ml 470 ml Results Result Diagram: 10/31/18 0607 10/31/18 0607 Results 24hrs Laboratory Tests Test 10/31/18 17:13 10/31/18 21:03 11/01/18 00:51 11/01/18 05:05 Bedside Glucose 278 H 222 H 232 H 231 H Test 11/01/18 08:45 11/01/18 11:43 Bedside Glucose 232 H 239 H Medications Medication Current Medications IV Flush (NS 3 ml) 3 ml PER PROTOCOL IV ; Start 10/28/18 at 20:30 Ondansetron HCl (Zofran Inj) 4 mg Q6H PRN IV NAUSEA/VOMITING; Start 10/28/18 at 20:30 Acetaminophen (Tylenol Tab) 650 mg Q6H PRN PO .PAIN 1-3 OR TEMP Last administered on 10/31/18at 09:25; Admin Dose 650 MG; Start 10/28/18 at 20:30 Morphine Sulfate (morphine) 2 mg Q4H PRN IV .PAIN 7-10; Start 10/28/18 at 20:30 Enoxaparin Sodium (Lovenox) 30 mg DAILY SC Last administered on 11/01/18at 09:08; Admin Dose 30 MG; Start 10/29/18 at 09:00 Alprazolam (Xanax) 0.25 mg TID PRN PO ANXIETY; Start 10/28/18 at 20:30 Atorvastatin Calcium (Lipitor) 20 mg QHS PO Last administered on 10/31/18at 21:05; Admin Dose 20 MG; Start 10/28/18 at 21:00 Duloxetine HCl (Cymbalta) 30 mg DAILY PO Last administered on 10/31/18 09:25; Admin Dose 30 MG; Start 10/29/18 at 09:00 Ferrous Sulfate (Ferrous Sulfate (Ec)) 325 mg DAILY PO Last administered on 11/01/18at 08:46; Admin Dose 325 MG; Start 10/29/18 at 09:00 Gabapentin (Neurontin) 400 mg Q8 PO Last administered on 11/01/18at 05:06; Admin Dose 400 MG; Start 10/28/18 at 22:00 Isosorbide Dinitrate (Isordil) 10 mg TID PO Last administered on 10/30/18at 13:30; Admin Dose 10 MG; Start 10/28/18 at 21:00 Nitroglycerin (Nitroglycerin (Sl Tab) 0.4 Mg) 1 tab [id number] PRN SL CHEST PAIN; Start 10/28/18 at 20:30 Ondansetron HCl (Zofran Tab) 4 mg Q4H PRN PO NAUSEA AND/OR VOMITING; Start 10/28/18 at 20:30 Senna (Senokot) 1 tab BID PO Last administered on 11/01/18 08:46; Admin Dose 1 TAB; Start 10/28/18 at 21:00 Tramadol HCl (Ultram) 50 mg Q6H PRN PO PAIN LEVEL 7-10; Start 10/28/18 at 20:30 Miscellaneous Information 1 ea NOTE XX ; Start 10/29/18 at 12:00 Glucose (Glutose) 15 gm Q15M PRN PO DECREASED GLUCOSE; Start 10/29/18 at 12:00 Glucose (Glutose) 22.5 gm Q15M PRN PO DECREASED GLUCOSE; Start 10/29/18 at 12:00 Dextrose (D50w Syringe) 25 ml Q15M PRN IV DECREASED GLUCOSE; Start 10/29/18 at 12:00 Dextrose (D50w Syringe) 50 ml Q15M PRN IV DECREASED GLUCOSE; Start 10/29/18 at 12:00 Glucagon (Glucagen) 1 mg Q15M PRN IM DECREASED GLUCOSE; Start 10/29/18 at 12:00 Glucose (Glutose) 15 gm Q15M PRN BUCCAL DECREASED GLUCOSE; Start 10/29/18 at 12:00 Multivit/Ca Carb/ B Cmplx/FA/Prenat (Inna-Belinda) 1 tab DAILY GTB Last administered on 11/01/18at 08:46; Admin Dose 1 TAB; Start 10/30/18 at 09:00 Nystatin (Nystatin Cr) 1 applic BID TOP Last administered on 11/01/18at 08:52; Admin Dose 1 APPLIC; Start 10/29/18 at 21:00 Hydralazine HCl (Apresoline) 25 mg BID PO ; Start 10/30/18 at 09:00 Metoprolol Tartrate (Lopressor) 25 mg BID PO ; Start 10/30/18 at 09:00 Diagnostic Test (Pha) (Accu-Chek) 1 ea 02 XX ; Start 10/31/18 at 02:00 Insulin Glargine (Lantus) 5 units DAILY@2000 SC Last administered on 10/31/18at 21:32; Admin Dose 5 UNITS; Start 10/30/18 at 20:00 Insulin Aspart (Novolog Insulin Pen) NOVOLOG *MODERATE* ALGORI... Q4 SC Last administered on 11/01/18at 12:05; Admin Dose 6 UNIT; Start 10/30/18 at 17:00 Meropenem/Sodium Chloride 50 ml @ 100 mls/hr Q12 IVPB Last administered on 11/01/18at 08:47; Admin Dose 100 MLS/HR; Start 10/31/18 at 12:30 Mupirocin (Bactroban) 1 applic BID TOP Last administered on 11/01/18at 08:51; Admin Dose 1 APPLIC; Start 10/31/18 at 21:00 Lansoprazole (Prevacid) 30 mg DAILY@06 GTB Last administered on 11/01/18at 06:58; Admin Dose 30 MG; Start 11/01/18 at 06:30 JAVI SALINAS NP Nov 01, 2018 15:02
--- NOTE | 2018-11-01 16:02 | CONS ---
Assessment/Plan Assessment/Plan Assessment/Plan (Daily) # Anemia Hgb 6.6 - Anemia panel - plan for comfort care; so labs got cancelled - palliative care follows # Acute kidney injury superimposed on chronic kidney disease; with BUN 135 on admission - nephrology follows # Uremia - nephrology follows # Severe Hyponatremia - IVF; Nephro follows # Urinary tract infection - ID follows # H/o HTN - per PMD # VDRF s/p Tracheostomy - per pulmonary # Dysphagia S/p G tube # H/o CAD s/p CABG # H/O HL Given as patient clinical condition; he has poor prognosis, Family agreed for DNR, no plan for Dialysis, no ICU transfer, no Aggressive care and agree to have palliative care consult. Last Hgb 6.6, no transfusion was given Patient seen in collaboration with Dr Martinez. Consultation Date/Type/Reason Admit Date/Time Oct 28, 2018 at 19:52 Date of Consultation: Nov 01, 2018 Type of Consult HEM/ONC Reason for Consultation ANEMIA Requesting Provider: NOE MINOR MD Date/Time of Note DATE: 11/01/18 TIME: 1340 HPI Mr Douglas is a 68-year-old male; a SNF resident with trach and vent dependent with a history of CAD, CKD, CHF with pacemaker,ITP, Severe Thrombocytopenia PLT- 3K, Anemia was brought from his senior care facility per the request of his primary care doctor, Dr. Minor, for abnormal labs. Patient is unable to provide a history2/2 chronic encephalopathy. Reportedly his Hgb 7.5, BUN 128 and creatinine 3.5. Hem/Onc consulted for his Anemia. His last Hgb 6.6 ; no transfusion given. ROS Unable to obtain due to chronic encephalopathy Subjective hx not possible: pt non-verbal Constitutional: requiring IVF, requiring O2 Past Medical History PMhx/Soc Medical and Surgical Hx: Unable to obtain History of Surgery: Yes (Bilateral below the knee amputations, tracheostomy, pacemaker, gastrostomy) Anesthesia Reaction: No Hx Neurological Disorder: Yes ( spina bifida, seizure disorder, CVA) Hx Respiratory Disorders: Yes Hx Cardiac Disorders: Yes (CAD, CHF, hypertension) Hx Psychiatric Problems: No Hx Miscellaneous Medical Probl: Yes (Diabetes) Hx Alcohol Use: No Hx Substance Use: No Hx Tobacco Use: No Smoking Status: Never smoker FmHx Unable to obtain Medical History: congestive heart failure, coronary artery disease, diabetes, high cholesterol, hypertension Home Meds Reported Medications Tramadol HCl (Tramadol HCl) 50 Mg Tablet, 50 MG PO Q6H PRN for PAIN LEVEL 7-10, #120 TAB 06/23/18 Hydralazine Hcl* (Hydralazine Hcl*) 50 Mg Tab, 50 MG PO Q8 for hypertension, #90 TAB 06/23/18 Gabapentin* (Neurontin*) 400 Mg Capsule, 400 MG PO Q8, #90 CAP 06/23/18 Insulin Isophan/Regular (Humulin 70/30) 100 Units/Ml Susp, 18 UNIT SC Q8, EA 06/23/18 Omeprazole* (Omeprazole*) 40 Mg Capsule.dr, 40 MG PO DAILY, #30 CAP 06/23/18 Metoprolol Tartrate* (Lopressor*) 50 Mg Tab, 50 MG PO Q8, #60 TAB 06/23/18 Atorvastatin Calcium* (Atorvastatin Calcium*) 20 Mg Tablet, 20 MG PO QHS, #30 TAB 06/23/18 Ondansetron Hcl* (Ondansetron Hcl*) 4 Mg Tablet, 4 MG PO Q4H PRN for NAUSEA AND OR VOMITING, TAB 11/11/17 Budesonide-Formoterol Fumarate* (Symbicort*) 160-4.5 Hfa.aer.ad, 1 PUFF INH ALATION BID, #1 EACH 11/11/17 Sennosides* (Senna Lax*) 8.6 Mg Tablet, 1 TAB PO BID, TAB 11/11/17 Multivitamins* (Theragran*) 1 Tab Tab, 1 TAB PO DAILY, TAB 11/11/17 Isosorbide Dinitrate* (Isosorbide Dinitrate*) 10 Mg Tablet, 10 MG PO TID, TAB 11/11/17 Ascorbic Acid* (Vitamin C*) 500 Mg Capsule.sa, 500 MG PO DAILY, CAP 11/11/17 Pantoprazole* (Protonix*) 40 Mg Tablet.dr, 40 MG PO AC BREAKFAST, TAB 08/07/17 Apixaban* (Eliquis*) 5 Mg Tablet, 5 MG PO BID, TAB 08/07/17 Nitroglycerin* (Nitrostat*) 0.4 Mg Tab.subl, 0.4 MG SL Q5MIN PRN for CHEST PAIN, BOTTLE 05/19/17 Duloxetine Hcl* (Cymbalta*) 30 Mg Capsule.dr, 30 MG PO DAILY, CAP 05/19/17 Acetaminophen* (Acetaminophen*) 650 Mg Tablet, 650 MG PO Q6H PRN for MILD TO MODERATE PAIN, #30 TAB 03/18/17 Alprazolam* (Alprazolam*) 0.25 Mg Tablet, 0.25 MG PO TID PRN for ANXIETY, TAB 03/18/17 Ferrous Sulfate* (Ferrous Sulfate*) 325 Mg Tabec, 325 MG PO DAILY, TAB 03/18/17 Medications Current Medications IV Flush (NS 3 ml) 3 ml PER PROTOCOL IV ; Start 10/28/18 at 20:30 Ondansetron HCl (Zofran Inj) 4 mg Q6H PRN IV NAUSEA/VOMITING; Start 10/28/18 at 20:30 Acetaminophen (Tylenol Tab) 650 mg Q6H PRN PO .PAIN 1-3 OR TEMP Last administered on 10/31/18 09:25; Admin Dose 650 MG; Start 10/28/18 at 20:30 Morphine Sulfate (morphine) 2 mg Q4H PRN IV .PAIN 7-10; Start 10/28/18 at 20:30 Enoxaparin Sodium (Lovenox) 30 mg DAILY SC Last administered on 11/01/18at 09:08; Admin Dose 30 MG; Start 10/29/18 at 09:00 Alprazolam (Xanax) 0.25 mg TID PRN PO ANXIETY; Start 10/28/18 at 20:30 Atorvastatin Calcium (Lipitor) 20 mg QHS PO Last administered on 10/31/18at 21:05; Admin Dose 20 MG; Start 10/28/18 at 21:00 Duloxetine HCl (Cymbalta) 30 mg DAILY PO Last administered on 10/31/18 09:25; Admin Dose 30 MG; Start 10/29/18 at 09:00 Ferrous Sulfate (Ferrous Sulfate (Ec)) 325 mg DAILY PO Last administered on 11/01/18at 08:46; Admin Dose 325 MG; Start 10/29/18 at 09:00 Gabapentin (Neurontin) 400 mg Q8 PO Last administered on 11/01/18 05:06; Admin Dose 400 MG; Start 10/28/18 at 22:00 Isosorbide Dinitrate (Isordil) 10 mg TID PO Last administered on 10/30/18at 13:30; Admin Dose 10 MG; Start 10/28/18 at 21:00 Nitroglycerin (Nitroglycerin (Sl Tab) 0.4 Mg) 1 tab [id number] PRN SL CHEST PAIN; Start 10/28/18 at 20:30 Ondansetron HCl (Zofran Tab) 4 mg Q4H PRN PO NAUSEA AND/OR VOMITING; Start 10/28/18 at 20:30 Senna (Senokot) 1 tab BID PO Last administered on 11/01/18at 08:46; Admin Dose 1 TAB; Start 10/28/18 at 21:00 Tramadol HCl (Ultram) 50 mg Q6H PRN PO PAIN LEVEL 7-10; Start 10/28/18 at 20:30 Miscellaneous Information 1 ea NOTE XX ; Start 10/29/18 at 12:00 Glucose (Glutose) 15 gm Q15M PRN PO DECREASED GLUCOSE; Start 10/29/18 at 12:00 Glucose (Glutose) 22.5 gm Q15M PRN PO DECREASED GLUCOSE; Start 10/29/18 at 12:00 Dextrose (D50w Syringe) 25 ml Q15M PRN IV DECREASED GLUCOSE; Start 10/29/18 at 12:00 Dextrose (D50w Syringe) 50 ml Q15M PRN IV DECREASED GLUCOSE; Start 10/29/18 at 12:00 Glucagon (Glucagen) 1 mg Q15M PRN IM DECREASED GLUCOSE; Start 10/29/18 at 12:00 Glucose (Glutose) 15 gm Q15M PRN BUCCAL DECREASED GLUCOSE; Start 10/29/18 at 12:00 Multivit/Ca Carb/ B Cmplx/FA/Prenat (Inna-Belinda) 1 tab DAILY GTB Last administered on 11/01/18at 08:46; Admin Dose 1 TAB; Start 10/30/18 at 09:00 Nystatin (Nystatin Cr) 1 applic BID TOP Last administered on 11/01/18at 08:52; Admin Dose 1 APPLIC; Start 10/29/18 at 21:00 Hydralazine HCl (Apresoline) 25 mg BID PO ; Start 10/30/18 at 09:00 Metoprolol Tartrate (Lopressor) 25 mg BID PO ; Start 10/30/18 at 09:00 Diagnostic Test (Pha) (Accu-Chek) 1 ea 02 XX ; Start 10/31/18 at 02:00 Insulin Glargine (Lantus) 5 units DAILY@2000 SC Last administered on 10/31/18at 21:32; Admin Dose 5 UNITS; Start 10/30/18 at 20:00 Insulin Aspart (Novolog Insulin Pen) NOVOLOG *MODERATE* ALGORI... Q4 SC Last administered on 11/01/18at 12:05; Admin Dose 6 UNIT; Start 10/30/18 at 17:00 Meropenem/Sodium Chloride 50 ml @ 100 mls/hr Q12 IVPB Last administered on 11/01/18at 08:47; Admin Dose 100 MLS/HR; Start 10/31/18 at 12:30 Mupirocin (Bactroban) 1 applic BID TOP Last administered on 11/01/18at 08:51; Admin Dose 1 APPLIC; Start 10/31/18 at 21:00 Lansoprazole (Prevacid) 30 mg DAILY@06 GTB Last administered on 11/01/18at 06:58; Admin Dose 30 MG; Start 11/01/18 at 06:30 Allergies: Coded Allergies: ciprofloxacin (Verified Allergy, Mild, ITCHINESS, RASH , 07/30/18) Penicillins (Verified Allergy, Unknown, 07/30/18) garlic (Verified Allergy, Unknown, 07/30/18) STOMACH UPSET linagliptin (Verified Allergy, Unknown, pancreatitis, 07/30/18) morphine (Verified Allergy, Unknown, 07/30/18) povidone-iodine (Verified Allergy, Unknown, RASH, 07/30/18) soap (Verified Allergy, Unknown, RASH, 07/30/18) Past Surgical History Past Surgical Hx: coronary bypass surgery, other Social History Smoking Status: Never smoker Exam/Review of Systems Exam Vitals Vital Signs Date Temp Pulse Resp B/P (MAP) Pulse Ox O2 O2 Flow FiO2 Time Delivery Rate 11/01/18 61 15 95 35 15:43 11/01/18 99.0 96/48 (64) Trach 15:42 Collar Intake and Output 10/31/18 10/31/18 11/01/18 1515:00 23:00 07:00 IntakeIntake Total 435 ml 720 ml 660 ml OutputOutput Total 200 ml 100 ml 190 ml BalanceBalance 235 ml 620 ml 470 ml Constitutional: non-verbal, frail Psych: nl mood/affect Eyes: nl lids, nl sclera ENMT: nl external ears & nose Neck: other (trach intact) Respiratory: crackles/rales, diminished breath sounds Cardiovascular: nl pulses, other (s1s2) Gastrointestinal: soft, other (gt intact) Musculoskeletal: muscle weakness, other (George BKA) Extremities: edema Neurological: unresponsive Skin: other (decubs) Results Result Diagram: 10/31/18 0607 10/31/18606 Results 24hrs Laboratory Tests Test 10/31/18 17:13 10/31/18 21:03 11/01/18 00:51 11/01/18 05:05 Bedside Glucose 278 H 222 H 232 H 231 H Test 11/01/18 08:45 11/01/18 11:43 Bedside Glucose 232 H 239 H Medications Medication Current Medications IV Flush (NS 3 ml) 3 ml PER PROTOCOL IV ; Start 10/28/18 at 20:30 Ondansetron HCl (Zofran Inj) 4 mg Q6H PRN IV NAUSEA/VOMITING; Start 10/28/18 at 20:30 Acetaminophen (Tylenol Tab) 650 mg Q6H PRN PO .PAIN 1-3 OR TEMP Last administered on 10/31/18at 09:25; Admin Dose 650 MG; Start 10/28/18 at 20:30 Morphine Sulfate (morphine) 2 mg Q4H PRN IV .PAIN 7-10; Start 10/28/18 at 20:30 Enoxaparin Sodium (Lovenox) 30 mg DAILY SC Last administered on 11/01/18at 09:08; Admin Dose 30 MG; Start 10/29/18 at 09:00 Alprazolam (Xanax) 0.25 mg TID PRN PO ANXIETY; Start 10/28/18 at 20:30 Atorvastatin Calcium (Lipitor) 20 mg QHS PO Last administered on 10/31/18at 21:05; Admin Dose 20 MG; Start 10/28/18 at 21:00 Duloxetine HCl (Cymbalta) 30 mg DAILY PO Last administered on 10/31/18at 09:25; Admin Dose 30 MG; Start 10/29/18 at 09:00 Ferrous Sulfate (Ferrous Sulfate (Ec)) 325 mg DAILY PO Last administered on 11/01/18at 08:46; Admin Dose 325 MG; Start 10/29/18 at 09:00 Gabapentin (Neurontin) 400 mg Q8 PO Last administered on 11/01/18at 05:06; Admin Dose 400 MG; Start 10/28/18 at 22:00 Isosorbide Dinitrate (Isordil) 10 mg TID PO Last administered on 10/30/18at 13:30; Admin Dose 10 MG; Start 10/28/18 at 21:00 Nitroglycerin (Nitroglycerin (Sl Tab) 0.4 Mg) 1 tab [id number] PRN SL CHEST PAIN; Start 10/28/18 at 20:30 Ondansetron HCl (Zofran Tab) 4 mg Q4H PRN PO NAUSEA AND/OR VOMITING; Start 10/28/18 at 20:30 Senna (Senokot) 1 tab BID PO Last administered on 11/01/18at 08:46; Admin Dose 1 TAB; Start 10/28/18 at 21:00 Tramadol HCl (Ultram) 50 mg Q6H PRN PO PAIN LEVEL 7-10; Start 10/28/18 at 20:30 Miscellaneous Information 1 ea NOTE XX ; Start 10/29/18 at 12:00 Glucose (Glutose) 15 gm Q15M PRN PO DECREASED GLUCOSE; Start 10/29/18 at 12:00 Glucose (Glutose) 22.5 gm Q15M PRN PO DECREASED GLUCOSE; Start 10/29/18 at 12:00 Dextrose (D50w Syringe) 25 ml Q15M PRN IV DECREASED GLUCOSE; Start 10/29/18 at 12:00 Dextrose (D50w Syringe) 50 ml Q15M PRN IV DECREASED GLUCOSE; Start 10/29/18 at 12:00 Glucagon (Glucagen) 1 mg Q15M PRN IM DECREASED GLUCOSE; Start 10/29/18 at 12:00 Glucose (Glutose) 15 gm Q15M PRN BUCCAL DECREASED GLUCOSE; Start 10/29/18 at 12:00 Multivit/Ca Carb/ B Cmplx/FA/Prenat (Inna-Belinda) 1 tab DAILY GTB Last administered on 11/01/18at 08:46; Admin Dose 1 TAB; Start 10/30/18 at 09:00 Nystatin (Nystatin Cr) 1 applic BID TOP Last administered on 11/01/18 08:52; Admin Dose 1 APPLIC; Start 10/29/18 at 21:00 Hydralazine HCl (Apresoline) 25 mg BID PO ; Start 10/30/18 at 09:00 Metoprolol Tartrate (Lopressor) 25 mg BID PO ; Start 10/30/18 at 09:00 Diagnostic Test (Pha) (Accu-Chek) 1 ea 02 XX ; Start 10/31/18 at 02:00 Insulin Glargine (Lantus) 5 units DAILY@2000 SC Last administered on 10/31/18at 21:32; Admin Dose 5 UNITS; Start 10/30/18 at 20:00 Insulin Aspart (Novolog Insulin Pen) NOVOLOG *MODERATE* ALGORI... Q4 SC Last administered on 11/01/18at 12:05; Admin Dose 6 UNIT; Start 10/30/18 at 17:00 Meropenem/Sodium Chloride 50 ml @ 100 mls/hr Q12 IVPB Last administered on 11/01/18at 08:47; Admin Dose 100 MLS/HR; Start 10/31/18 at 12:30 Mupirocin (Bactroban) 1 applic BID TOP Last administered on 11/01/18 08:51; Admin Dose 1 APPLIC; Start 10/31/18 at 21:00 Lansoprazole (Prevacid) 30 mg DAILY@06 GTB Last administered on 11/01/18at 06:58; Admin Dose 30 MG; Start 11/01/18 at 06:30 LES TRENT Nov 01, 2018 16:02
--- NOTE | 2018-11-01 17:25 | CONS ---
Assessment/Plan Assessment/Plan Assessment/Plan (Daily) 1. CR on CKD with BUN 135 on admission 3. Severe Hyponatremia 3. H/o HTN 6. VDRF s/p Tracheostomy 7. Dysphagia S/p G tube 8. H/o CAD s/p CABG 9. H/O HL Plan: Pt did not respond to IV albumin, BUN/cr rising, Discussed with pt sister dustin and siter Kalani in [place]- Explained her about pt clinical condition and poor prognosis, They both agreed for DNR, no plan for Dialysis, no ICU transfer,plan for comfort care as per family awaitin morphine gtt Consultation Date/Type/Reason Admit Date/Time Oct 28, 2018 at 19:52 Initial Consult Date 10/29/18 Type of Consult NEPHROLOGY Requesting Provider: JACKIE SHAVER Date/Time of Note DATE: 11/01/18 TIME: 17:25 Exam/Review of Systems Exam Vitals Vital Signs Date Temp Pulse Resp B/P (MAP) Pulse Ox O2 O2 Flow FiO2 Time Delivery Rate 11/01/18 61 15 95 35 15:43 11/01/18 99.0 96/48 (64) Trach 15:42 Collar Intake and Output 10/31/18 10/31/18 11/01/18 1515:00 23:00 07:00 IntakeIntake Total 435 ml 720 ml 660 ml OutputOutput Total 200 ml 100 ml 190 ml BalanceBalance 235 ml 620 ml 470 ml Results Result Diagram: 10/31/18 0607 10/31/18 0607 Results 24hrs Laboratory Tests Test 10/31/18 21:03 11/01/18 00:51 11/01/18 05:05 11/01/18 08:45 Bedside Glucose 222 H 232 H 231 H 232 H Test 11/01/18 11:43 11/01/18 17:08 Bedside Glucose 239 H 246 H Medications Medication Current Medications IV Flush (NS 3 ml) 3 ml PER PROTOCOL IV ; Start 10/28/18 at 20:30 Ondansetron HCl (Zofran Inj) 4 mg Q6H PRN IV NAUSEA/VOMITING; Start 10/28/18 at 20:30 Acetaminophen (Tylenol Tab) 650 mg Q6H PRN PO .PAIN 1-3 OR TEMP Last administered on 10/31/18at 09:25; Admin Dose 650 MG; Start 10/28/18 at 20:30 Morphine Sulfate (morphine) 2 mg Q4H PRN IV .PAIN 7-10; Start 10/28/18 at 20:30 Enoxaparin Sodium (Lovenox) 30 mg DAILY SC Last administered on 11/01/18at 09:08; Admin Dose 30 MG; Start 10/29/18 at 09:00 Alprazolam (Xanax) 0.25 mg TID PRN PO ANXIETY; Start 10/28/18 at 20:30 Atorvastatin Calcium (Lipitor) 20 mg QHS PO Last administered on 10/31/18at 21:05; Admin Dose 20 MG; Start 10/28/18 at 21:00 Duloxetine HCl (Cymbalta) 30 mg DAILY PO Last administered on 10/31/18at 09:25; Admin Dose 30 MG; Start 10/29/18 at 09:00 Ferrous Sulfate (Ferrous Sulfate (Ec)) 325 mg DAILY PO Last administered on 11/01/18at 08:46; Admin Dose 325 MG; Start 10/29/18 at 09:00 Gabapentin (Neurontin) 400 mg Q8 PO Last administered on 11/01/18at 05:06; Admin Dose 400 MG; Start 10/28/18 at 22:00 Isosorbide Dinitrate (Isordil) 10 mg TID PO Last administered on 10/30/18at 13:30; Admin Dose 10 MG; Start 10/28/18 at 21:00 Nitroglycerin (Nitroglycerin (Sl Tab) 0.4 Mg) 1 tab [id number] PRN SL CHEST PAIN; Start 10/28/18 at 20:30 Ondansetron HCl (Zofran Tab) 4 mg Q4H PRN PO NAUSEA AND/OR VOMITING; Start 10/28/18 at 20:30 Senna (Senokot) 1 tab BID PO Last administered on 11/01/18at 08:46; Admin Dose 1 TAB; Start 10/28/18 at 21:00 Tramadol HCl (Ultram) 50 mg Q6H PRN PO PAIN LEVEL 7-10; Start 10/28/18 at 20:30 Miscellaneous Information 1 ea NOTE XX ; Start 10/29/18 at 12:00 Glucose (Glutose) 15 gm Q15M PRN PO DECREASED GLUCOSE; Start 10/29/18 at 12:00 Glucose (Glutose) 22.5 gm Q15M PRN PO DECREASED GLUCOSE; Start 10/29/18 at 12:00 Dextrose (D50w Syringe) 25 ml Q15M PRN IV DECREASED GLUCOSE; Start 10/29/18 at 12:00 Dextrose (D50w Syringe) 50 ml Q15M PRN IV DECREASED GLUCOSE; Start 10/29/18 at 12:00 Glucagon (Glucagen) 1 mg Q15M PRN IM DECREASED GLUCOSE; Start 10/29/18 at 12:00 Glucose (Glutose) 15 gm Q15M PRN BUCCAL DECREASED GLUCOSE; Start 10/29/18 at 12:00 Multivit/Ca Carb/ B Cmplx/FA/Prenat (Inna-Belinda) 1 tab DAILY GTB Last administered on 11/01/18at 08:46; Admin Dose 1 TAB; Start 10/30/18 at 09:00 Nystatin (Nystatin Cr) 1 applic BID TOP Last administered on 11/01/18at 08:52; Admin Dose 1 APPLIC; Start 10/29/18 at 21:00 Hydralazine HCl (Apresoline) 25 mg BID PO ; Start 10/30/18 at 09:00 Metoprolol Tartrate (Lopressor) 25 mg BID PO ; Start 10/30/18 at 09:00 Diagnostic Test (Pha) (Accu-Chek) 1 ea 02 XX ; Start 10/31/18 at 02:00 Insulin Glargine (Lantus) 5 units DAILY@2000 SC Last administered on 10/31/18at 21:32; Admin Dose 5 UNITS; Start 10/30/18 at 20:00 Insulin Aspart (Novolog Insulin Pen) NOVOLOG *MODERATE* ALGORI... Q4 SC Last administered on 11/01/18at 17:13; Admin Dose 6 UNIT; Start 10/30/18 at 17:00 Meropenem/Sodium Chloride 50 ml @ 100 mls/hr Q12 IVPB Last administered on 11/01/18at 08:47; Admin Dose 100 MLS/HR; Start 10/31/18 at 12:30 Mupirocin (Bactroban) 1 applic BID TOP Last administered on 11/01/18at 08:51; Admin Dose 1 APPLIC; Start 10/31/18 at 21:00 Lansoprazole (Prevacid) 30 mg DAILY@06 GTB Last administered on 11/01/18at 06:58; Admin Dose 30 MG; Start 11/01/18 at 06:30 OCTAVIO BOX MD Nov 01, 2018 17:25
[2018-11-01] MEDS: INSULIN GLARGINE [LANTus] (100 UNITS/ML) SYG SC SCH (20:57)
[2018-11-01] MEDS: ATORVASTATIN 20 MG TAB PO SCH (21:01)
[2018-11-02] VITALS (15 sets, daily range): BP systolic 91–121; BP diastolic 38–60; PULSE 60–65; RESP 14–20
[2018-11-02] MEDS: INSULIN ASPART [NOVOLOG] 3 ML PEN SC SCH ×4 (01:59→12:54)
[2018-11-02] MEDS: ACCU-CHEK XX SCH (01:59)
[2018-11-02] MEDS: LANSOPRAZOLE 30 MG CAP GTB SCH (05:34)
[2018-11-02] MEDS: GABAPENTIN 400 MG CAP PO SCH ×2 (05:34→14:00)
[2018-11-02] MEDS: MEROPENEM 500MG/50 ML (PMX) 50 ML IVPB SCH (08:20)
[2018-11-02] MEDS: FERROUS SULFATE (EC) 325 MG TAB PO SCH (08:21)
[2018-11-02] MEDS: MULTIVIT/CA CARB/B CMPLX/FA TAB GTB SCH (08:21)
--- NOTE | 2018-11-02 08:24 | CONS ---
Assessment/Plan Assessment/Plan Assessment/Plan (Daily) 1. CR on CKD with BUN 135 on admission 3. Severe Hyponatremia 3. H/o HTN 6. VDRF s/p Tracheostomy 7. Dysphagia S/p G tube 8. H/o CAD s/p CABG 9. H/O HL Plan: Pt did not respond to IV albumin, BUN/cr rising, Discussed with pt sister dustin and siter Kalani in [place]- Explained her about pt clinical condition and poor prognosis, They both agreed for DNR, no plan for Dialysis, no ICU transfer,plan for comfort care as per family on morphine gtt call us if any questions Consultation Date/Type/Reason Admit Date/Time Oct 28, 2018 at 19:52 Initial Consult Date 10/29/18 Type of Consult NEPHROLOGY Requesting Provider: JACKIE SHAVER Date/Time of Note DATE: 11/02/18 TIME: 08:24 Exam/Review of Systems Exam Vitals Vital Signs Date Temp Pulse Resp B/P (MAP) Pulse Ox O2 O2 Flow FiO2 Time Delivery Rate 11/02/18 60 17 93 35 04:45 11/02/18 98.5 121/60 Mechanical 04:00 (80) Ventilator Intake and Output 11/01/18 11/01/18 11/02/18 1515:00 23:00 07:00 IntakeIntake Total 50 ml 630 ml OutputOutput Total 1100 ml 50 ml BalanceBalance -1050 ml 580 ml Results Result Diagram: 10/31/18 0607 10/31/18 0607 Results 24hrs Laboratory Tests Test 11/01/18 08:45 11/01/18 11:43 11/01/18 17:08 11/01/18 20:54 Bedside Glucose 232 H 239 H 246 H 238 H Test 11/02/18 01:55 11/02/18 05:38 Bedside Glucose 245 H 214 Medications Medication Current Medications IV Flush (NS 3 ml) 3 ml PER PROTOCOL IV ; Start 10/28/18 at 20:30 Ondansetron HCl (Zofran Inj) 4 mg Q6H PRN IV NAUSEA/VOMITING; Start 10/28/18 at 20:30 Acetaminophen (Tylenol Tab) 650 mg Q6H PRN PO .PAIN 1-3 OR TEMP Last administered on 10/31/18at 09:25; Admin Dose 650 MG; Start 10/28/18 at 20:30 Morphine Sulfate (morphine) 2 mg Q4H PRN IV .PAIN 7-10; Start 10/28/18 at 20:30 Enoxaparin Sodium (Lovenox) 30 mg DAILY SC Last administered on 11/01/18at 09:08; Admin Dose 30 MG; Start 10/29/18 at 09:00 Alprazolam (Xanax) 0.25 mg TID PRN PO ANXIETY; Start 10/28/18 at 20:30 Atorvastatin Calcium (Lipitor) 20 mg QHS PO Last administered on 11/01/18at 21:01; Admin Dose 20 MG; Start 10/28/18 at 21:00 Duloxetine HCl (Cymbalta) 30 mg DAILY PO Last administered on 10/31/18at 09:25; Admin Dose 30 MG; Start 10/29/18 at 09:00 Ferrous Sulfate (Ferrous Sulfate (Ec)) 325 mg DAILY PO Last administered on 11/01/18at 08:46; Admin Dose 325 MG; Start 10/29/18 at 09:00 Gabapentin (Neurontin) 400 mg Q8 PO Last administered on 11/02/18at 05:34; Admin Dose 400 MG; Start 10/28/18 at 22:00 Isosorbide Dinitrate (Isordil) 10 mg TID PO Last administered on 10/30/18at 13:30; Admin Dose 10 MG; Start 10/28/18 at 21:00 Nitroglycerin (Nitroglycerin (Sl Tab) 0.4 Mg) 1 tab [id number] PRN SL CHEST PAIN; Start 10/28/18 at 20:30 Ondansetron HCl (Zofran Tab) 4 mg Q4H PRN PO NAUSEA AND/OR VOMITING; Start 10/28/18 at 20:30 Senna (Senokot) 1 tab BID PO Last administered on 11/01/18at 21:01; Admin Dose 1 TAB; Start 10/28/18 at 21:00 Tramadol HCl (Ultram) 50 mg Q6H PRN PO PAIN LEVEL 7-10; Start 10/28/18 at 20:30 Miscellaneous Information 1 ea NOTE XX ; Start 10/29/18 at 12:00 Glucose (Glutose) 15 gm Q15M PRN PO DECREASED GLUCOSE; Start 10/29/18 at 12:00 Glucose (Glutose) 22.5 gm Q15M PRN PO DECREASED GLUCOSE; Start 10/29/18 at 12:00 Dextrose (D50w Syringe) 25 ml Q15M PRN IV DECREASED GLUCOSE; Start 10/29/18 at 12:00 Dextrose (D50w Syringe) 50 ml Q15M PRN IV DECREASED GLUCOSE; Start 10/29/18 at 12:00 Glucagon (Glucagen) 1 mg Q15M PRN IM DECREASED GLUCOSE; Start 10/29/18 at 12:00 Glucose (Glutose) 15 gm Q15M PRN BUCCAL DECREASED GLUCOSE; Start 10/29/18 at 12:00 Multivit/Ca Carb/ B Cmplx/FA/Prenat (Inna-Belinda) 1 tab DAILY GTB Last administered on 11/01/18at 08:46; Admin Dose 1 TAB; Start 10/30/18 at 09:00 Nystatin (Nystatin Cr) 1 applic BID TOP Last administered on 11/01/18at 21:04; Admin Dose 1 APPLIC; Start 10/29/18 at 21:00 Hydralazine HCl (Apresoline) 25 mg BID PO ; Start 10/30/18 at 09:00 Metoprolol Tartrate (Lopressor) 25 mg BID PO ; Start 10/30/18 at 09:00 Diagnostic Test (Pha) (Accu-Chek) 1 ea 02 XX Last administered on 11/02/18at 01:59; Admin Dose 1 EA; Start 10/31/18 at 02:00 Insulin Glargine (Lantus) 5 units DAILY@2000 SC Last administered on 11/01/18 20:57; Admin Dose 5 UNITS; Start 10/30/18 at 20:00 Insulin Aspart (Novolog Insulin Pen) NOVOLOG *MODERATE* ALGORI... Q4 SC Last administered on 11/02/18 05:47; Admin Dose 4 UNIT; Start 10/30/18 at 17:00 Meropenem/Sodium Chloride 50 ml @ 100 mls/hr Q12 IVPB Last administered on 11/01/18 20:59; Admin Dose 100 MLS/HR; Start 10/31/18 at 12:30 Mupirocin (Bactroban) 1 applic BID TOP Last administered on 11/01/18at 21:03; Admin Dose 1 APPLIC; Start 10/31/18 at 21:00 Lansoprazole (Prevacid) 30 mg DAILY@06 GTB Last administered on 11/02/18at 05:34; Admin Dose 30 MG; Start 11/01/18 at 06:30 OCTAVIO BOX MD Nov 02, 2018 08:24
[2018-11-02] MEDS: METOPROLOL 50 MG TAB PO SCH (08:25)
[2018-11-02] MEDS: DULOXETINE 30 MG CAP DR PO SCH (08:25)
[2018-11-02] MEDS: ISOSORBIDE DINITRATE 10 MG TAB PO SCH ×2 (08:25→12:47)
[2018-11-02] MEDS: SENNA TAB PO SCH ×2 (08:26→20:35)
[2018-11-02] MEDS: BALSAM PERU/CASTOR OIL 60 GM TUBE TOP SCH (08:27)
[2018-11-02] MEDS: NYSTATIN 15 GM CR TOP SCH (08:27)
[2018-11-02] MEDS: MUPIROCIN 2% 22 GM OINT TOP SCH (08:28)
[2018-11-02] MEDS: ENOXAPARIN 30 MG/0.3 ML SYG SC SCH (08:42)
--- NOTE | 2018-11-02 10:04 | PN ---
Date/Time of Note Date/Time of Note DATE: 11/02/18 TIME: 10:03 Assessment/Plan VTE Prophylaxis Risk score (from Ns)>0 risk: 5 SCD applied (from Ns): No SCD contraindicated: other Pharmacological prophylaxis: LMWH Lines/Catheters IV [facility] Type [facility] [place] [facility] Urinary Cath still in place: Yes Reason Cath still needed: skin wounds contaminated by urine Assessment/Plan Hospital Course 1) Worsening renal failure - family opted against hemodialysis - patient is DNR 2) respiratory failure - on trach, is stable 3) coronary artery disease - no evidence of acute exacerbation Result Diagram: 10/31/18 0607 10/31/18 0607 Results 24hrs Laboratory Tests Test 11/01/18 11:43 11/01/18 17:08 11/01/18 20:54 11/02/18 01:55 Bedside Glucose 239 H 246 H 238 H 245 H Test 11/02/18 05:38 11/02/18 08:31 Bedside Glucose 214 215 Subjective 24 Hr Interval Summary Free Text/Dictation Patient is comfort care, hospice per family wishes Exam/Review of Systems Exam Vitals Vital Signs Date Temp Pulse Resp B/P (MAP) Pulse Ox O2 O2 Flow FiO2 Time Delivery Rate 11/02/18 60 17 93 35 04:45 11/02/18 98.5 121/60 Mechanical 04:00 (80) Ventilator Intake and Output 11/01/18 11/01/18 11/02/18 1515:00 23:00 07:00 IntakeIntake Total 50 ml 630 ml OutputOutput Total 1100 ml 50 ml BalanceBalance -1050 ml 580 ml Constitutional: well developed Head: normocephalic, atraumatic Neck: supple Respiratory: diminished breath sounds Cardiovascular: regular rate and rhythm Gastrointestinal: soft, non-tender Extremities: normal pulses Results Results 24hrs Laboratory Tests Test 11/01/18 11:43 11/01/18 17:08 11/01/18 20:54 11/02/18 01:55 Bedside Glucose 239 H 246 H 238 H 245 H Test 11/02/18 05:38 11/02/18 08:31 Bedside Glucose 214 215 Medications Medication Current Medications IV Flush (NS 3 ml) 3 ml PER PROTOCOL IV ; Start 10/28/18 at 20:30 Ondansetron HCl (Zofran Inj) 4 mg Q6H PRN IV NAUSEA/VOMITING; Start 10/28/18 at 20:30 Acetaminophen (Tylenol Tab) 650 mg Q6H PRN PO .PAIN 1-3 OR TEMP Last administered on 10/31/18 09:25; Admin Dose 650 MG; Start 10/28/18 at 20:30 Morphine Sulfate (morphine) 2 mg Q4H PRN IV .PAIN 7-10; Start 10/28/18 at 20:30 Enoxaparin Sodium (Lovenox) 30 mg DAILY SC Last administered on 11/02/18 08:42; Admin Dose 30 MG; Start 10/29/18 at 09:00 Alprazolam (Xanax) 0.25 mg TID PRN PO ANXIETY; Start 10/28/18 at 20:30 Atorvastatin Calcium (Lipitor) 20 mg QHS PO Last administered on 11/01/18 21:01; Admin Dose 20 MG; Start 10/28/18 at 21:00 Duloxetine HCl (Cymbalta) 30 mg DAILY PO Last administered on 10/31/18 09:25; Admin Dose 30 MG; Start 10/29/18 at 09:00 Ferrous Sulfate (Ferrous Sulfate (Ec)) 325 mg DAILY PO Last administered on 08:21; Admin Dose 325 MG; Start 10/29/18 at 09:00 Gabapentin (Neurontin) 400 mg Q8 PO Last administered on 11/02/18 05:34; Admin Dose 400 MG; Start 10/28/18 at 22:00 Isosorbide Dinitrate (Isordil) 10 mg TID PO Last administered on 10/30/18 13:30; Admin Dose 10 MG; Start 10/28/18 at 21:00 Nitroglycerin (Nitroglycerin (Sl Tab) 0.4 Mg) 1 tab [id number] PRN SL CHEST PAIN; Start 10/28/18 at 20:30 Ondansetron HCl (Zofran Tab) 4 mg Q4H PRN PO NAUSEA AND/OR VOMITING; Start 10/28/18 at 20:30 Senna (Senokot) 1 tab BID PO Last administered on 11/01/18 21:01; Admin Dose 1 TAB; Start 10/28/18 at 21:00 Tramadol HCl (Ultram) 50 mg Q6H PRN PO PAIN LEVEL 7-10; Start 10/28/18 at 20:30 Miscellaneous Information 1 ea NOTE XX ; Start 10/29/18 at 12:00 Glucose (Glutose) 15 gm Q15M PRN PO DECREASED GLUCOSE; Start 10/29/18 at 12:00 Glucose (Glutose) 22.5 gm Q15M PRN PO DECREASED GLUCOSE; Start 10/29/18 at 12:00 Dextrose (D50w Syringe) 25 ml Q15M PRN IV DECREASED GLUCOSE; Start 10/29/18 at 12:00 Dextrose (D50w Syringe) 50 ml Q15M PRN IV DECREASED GLUCOSE; Start 10/29/18 at 12:00 Glucagon (Glucagen) 1 mg Q15M PRN IM DECREASED GLUCOSE; Start 10/29/18 at 12:00 Glucose (Glutose) 15 gm Q15M PRN BUCCAL DECREASED GLUCOSE; Start 10/29/18 at 12:00 Multivit/Ca Carb/ B Cmplx/FA/Prenat (Inna-Belinda) 1 tab DAILY GTB Last administered on 11/02/18at 08:21; Admin Dose 1 TAB; Start 10/30/18 at 09:00 Nystatin (Nystatin Cr) 1 applic BID TOP Last administered on 11/02/18 08:27; Admin Dose 1 APPLIC; Start 10/29/18 at 21:00 Hydralazine HCl (Apresoline) 25 mg BID PO ; Start 10/30/18 at 09:00 Metoprolol Tartrate (Lopressor) 25 mg BID PO ; Start 10/30/18 at 09:00 Diagnostic Test (Pha) (Accu-Chek) 1 ea 02 XX Last administered on 11/02/18at 01:59; Admin Dose 1 EA; Start 10/31/18 at 02:00 Insulin Glargine (Lantus) 5 units DAILY@2000 SC Last administered on 11/01/18at 20:57; Admin Dose 5 UNITS; Start 10/30/18 at 20:00 Insulin Aspart (Novolog Insulin Pen) NOVOLOG *MODERATE* ALGORI... Q4 SC Last administered on 11/02/18 08:42; Admin Dose 4 UNIT; Start 10/30/18 at 17:00 Meropenem/Sodium Chloride 50 ml @ 100 mls/hr Q12 IVPB Last administered on 8/4/19at 08:20; Admin Dose 100 MLS/HR; Start 10/31/18 at 12:30 Mupirocin (Bactroban) 1 applic BID TOP Last administered on 11/02/18at 08:28; Admin Dose 1 APPLIC; Start 10/31/18 at 21:00 Lansoprazole (Prevacid) 30 mg DAILY@06 GTB Last administered on 11/02/18at 05:34; Admin Dose 30 MG; Start 11/01/18 at 06:30 JACKIE SHAVER Nov 02, 2018 10:04
--- NOTE | 2018-11-02 15:26 | CONS ---
Assessment/Plan Assessment/Plan Assessment/Plan (Daily) # Anemia Hgb 6.6 - plan for comfort care- [facility] follows - palliative care follows # Acute kidney injury superimposed on chronic kidney disease; with BUN 135 on admission - nephrology follows # Uremia - nephrology follows # Severe Hyponatremia - IVF; Nephro follows # Urinary tract infection - ID follows # H/o HTN - per PMD # VDRF s/p Tracheostomy - per pulmonary # Dysphagia S/p G tube # H/o CAD s/p CABG # H/O HL Given as patient clinical condition; he has poor prognosis, Family agreed for DNR, no plan for Dialysis, no ICU transfer, no Aggressive care and agree to have palliative care consult. Last Hgb 6.6, no transfusion was given Patient family/sister is talking to [facility] for comfort care. Patient seen in collaboration with Dr Martinez Consultation Date/Type/Reason Admit Date/Time Oct 28, 2018 at 19:52 Initial Consult Date 10/29/18 Type of Consult HEM /ONC Reason for Consultation ANEMIA Requesting Provider: JACKIE SHAVER Date/Time of Note DATE: 11/02/18 TIME: 15:15 24 HR Interval Summary Free Text/Dictation no events overnight no bleeding reported Subjective hx not possible: pt non-verbal Constitutional: requiring IVF, requiring O2 Exam/Review of Systems Exam Vitals Vital Signs Date Temp Pulse Resp B/P (MAP) Pulse Ox O2 O2 Flow FiO2 Time Delivery Rate 11/02/18 98.9 60 16 94/48 (63) 94 Trach 11:40 Collar 11/02/18 35 11:17 Intake and Output 11/01/18 11/01/18 11/02/18 1515:00 23:00 07:00 IntakeIntake Total 50 ml 630 ml OutputOutput Total 1100 ml 50 ml BalanceBalance -1050 ml 580 ml Constitutional: non-verbal, frail Psych: nl mood/affect ENMT: nl external ears & nose Neck: other (trach intact) Respiratory: diminished breath sounds Cardiovascular: nl pulses, other Gastrointestinal: soft, other (gt intact; ostomy intact) Musculoskeletal: muscle weakness, other Neurological: lethargic Results Result Diagram: 10/31/18 0607 10/31/18 0607 Results 24hrs Laboratory Tests Test 11/01/18 17:08 11/01/18 20:54 11/02/18 01:55 11/02/18 05:38 Bedside Glucose 246 H 238 H 245 H 214 Test 11/02/18 08:31 11/02/18 12:48 Bedside Glucose 215 218 Medications Medication Current Medications IV Flush (NS 3 ml) 3 ml PER PROTOCOL IV ; Start 10/28/18 at 20:30 Ondansetron HCl (Zofran Inj) 4 mg Q6H PRN IV NAUSEA/VOMITING; Start 10/28/18 at 20:30 Acetaminophen (Tylenol Tab) 650 mg Q6H PRN PO .PAIN 1-3 OR TEMP Last administered on 10/31/18 09:25; Admin Dose 650 MG; Start 10/28/18 at 20:30 Morphine Sulfate (morphine) 2 mg Q4H PRN IV .PAIN 7-10; Start 10/28/18 at 20:30 Enoxaparin Sodium (Lovenox) 30 mg DAILY SC Last administered on 11/02/18at 08:42; Admin Dose 30 MG; Start 10/29/18 at 09:00 Alprazolam (Xanax) 0.25 mg TID PRN PO ANXIETY; Start 10/28/18 at 20:30 Atorvastatin Calcium (Lipitor) 20 mg QHS PO Last administered on 11/01/18 21:01; Admin Dose 20 MG; Start 10/28/18 at 21:00 Duloxetine HCl (Cymbalta) 30 mg DAILY PO Last administered on 10/31/18 09:25; Admin Dose 30 MG; Start 10/29/18 at 09:00 Ferrous Sulfate (Ferrous Sulfate (Ec)) 325 mg DAILY PO Last administered on 11/02/18 08:21; Admin Dose 325 MG; Start 10/29/18 at 09:00 Gabapentin (Neurontin) 400 mg Q8 PO Last administered on 11/02/18 05:34; Admin Dose 400 MG; Start 10/28/18 at 22:00 Isosorbide Dinitrate (Isordil) 10 mg TID PO Last administered on 10/30/18 13:30; Admin Dose 10 MG; Start 10/28/18 at 21:00 Nitroglycerin (Nitroglycerin (Sl Tab) 0.4 Mg) 1 tab [id number] PRN SL CHEST PAIN; Start 10/28/18 at 20:30 Ondansetron HCl (Zofran Tab) 4 mg Q4H PRN PO NAUSEA AND/OR VOMITING; Start 10/28/18 at 20:30 Senna (Senokot) 1 tab BID PO Last administered on 11/01/18at 21:01; Admin Dose 1 TAB; Start 10/28/18 at 21:00 Tramadol HCl (Ultram) 50 mg Q6H PRN PO PAIN LEVEL 7-10; Start 10/28/18 at 20:30 Miscellaneous Information 1 ea NOTE XX ; Start 10/29/18 at 12:00 Glucose (Glutose) 15 gm Q15M PRN PO DECREASED GLUCOSE; Start 10/29/18 at 12:00 Glucose (Glutose) 22.5 gm Q15M PRN PO DECREASED GLUCOSE; Start 10/29/18 at 12:00 Dextrose (D50w Syringe) 25 ml Q15M PRN IV DECREASED GLUCOSE; Start 10/29/18 at 12:00 Dextrose (D50w Syringe) 50 ml Q15M PRN IV DECREASED GLUCOSE; Start 10/29/18 at 12:00 Glucagon (Glucagen) 1 mg Q15M PRN IM DECREASED GLUCOSE; Start 10/29/18 at 12:00 Glucose (Glutose) 15 gm Q15M PRN BUCCAL DECREASED GLUCOSE; Start 10/29/18 at 12:00 Multivit/Ca Carb/ B Cmplx/FA/Prenat (Inna-Belinda) 1 tab DAILY GTB Last administered on 11/02/18at 08:21; Admin Dose 1 TAB; Start 10/30/18 at 09:00 Nystatin (Nystatin Cr) 1 applic BID TOP Last administered on 11/02/18at 08:27; Admin Dose 1 APPLIC; Start 10/29/18 at 21:00 Hydralazine HCl (Apresoline) 25 mg BID PO ; Start 10/30/18 at 09:00 Metoprolol Tartrate (Lopressor) 25 mg BID PO ; Start 10/30/18 at 09:00 Diagnostic Test (Pha) (Accu-Chek) 1 ea 02 XX Last administered on 11/02/18at 01:59; Admin Dose 1 EA; Start 10/31/18 at 02:00 Insulin Glargine (Lantus) 5 units DAILY@2000 SC Last administered on 11/01/18at 20:57; Admin Dose 5 UNITS; Start 10/30/18 at 20:00 Insulin Aspart (Novolog Insulin Pen) NOVOLOG *MODERATE* ALGORI... Q4 SC Last administered on 11/02/18at 12:54; Admin Dose 4 UNIT; Start 10/30/18 at 17:00 Meropenem/Sodium Chloride 50 ml @ 100 mls/hr Q12 IVPB Last administered on 08:20; Admin Dose 100 MLS/HR; Start 10/31/18 at 12:30 Mupirocin (Bactroban) 1 applic BID TOP Last administered on 11/02/18at 08:28; Admin Dose 1 APPLIC; Start 10/31/18 at 21:00 Lansoprazole (Prevacid) 30 mg DAILY@06 GTB Last administered on 11/02/18at 05:34; Admin Dose 30 MG; Start 11/01/18 at 06:30 LES TRENT Nov 02, 2018 15:25
[2018-11-02] MEDS ORDERED: HYDROmorphONE 50 MG in DEXTROSE 5% 50 ML IV SCH (16:00)
[2018-11-02] MEDS ORDERED: DIMETHICONE STICK TOP PRN (16:00)
[2018-11-02] MEDS ORDERED: ACETAMINOPHEN 325 MG TAB PO PRN (16:00)
[2018-11-02] MEDS ORDERED: LORAZEPAM 2 MG INJ IV PRN (16:00)
[2018-11-02] MEDS ORDERED: ATROPINE 1% 5 ML OPH SL PRN (16:00)
[2018-11-02] MEDS ORDERED: ARTIFICIAL TEARS 15 ML OPH BOTH EYES PRN (16:00)
[2018-11-02] MEDS ORDERED: ONDANSETRON 4 MG INJ IV PRN (16:00)
--- NOTE | 2018-11-02 20:15 | CONS ---
Assessment/Plan Assessment/Plan Hospital Course (Demo Recall) ID PROGRESS NOTE CURRENT ABX: DAY # Merrem 24H INTERVAL SUMMARY * CLINICALLY STATUS QUO * Low grade TMAx 99.9, vss, patient is somnolent, looks comfortable on the Vent RADIOLOGY/IMAGING/PROCEDURES * 10/31/18 CXR: There is a moderate right and small left pleural effusion. There is right perihilar and lung base consolidation. There is left lung base consolidation. There are increased interstitial markings.Follow-up to resolution to exclude underlying neoplasm. MICRO * 10/31/18 BCx (-) 48H * 10/29/18 (+)MRSA Nares * 10/29/18 BCX (+) 1/2 bottles = GNR ACBA BLOOD CULTURE Final BCULT GRAM BOTTLE 1 Gram negative rods . seen on gram stain of the broth Organism 1 ACINETOBACTER BAUMANNII A.BAUMANNI A.BAUMANNI M.I.C. RX M.I.C. RX --------- --- --------- --- AMIKACIN R CEFEPIME 32 R CEFTAZIDIME 16 I CIPROFLOXACIN >=4 R GENTAMICIN >=16 R LEVOFLOXACIN >=8 R MEROPENEM 1.5 S TOBRAMYCIN >=16 R TRIMETHOPRIM/SULFAMETHOXAZOLE >=320 R PIPERACILLIN/TAZOBACTAM 16 S * 10/28/18 URINE CX: URINE CULTURE Final Organism 1 ESCHERICHIA COLI (ESBL) COLONY COUNT >100,000 CFU/ml . MULTI DRUG RESISTANT ORGANISM PHYSICAL EXAMINATION: GENERAL: Afebrile, VSS - non-communicative, chronically ill on the Vent HEENT: AT, NC, anicteric = NECK: Supple, Trach midline CHEST: Equal chest rise bilaterally = rales HEART: Pulse RRR ABDOMEN: Soft / ND : FC intact, clear yellow urine EXTREMITIES: BLEXT BKA = stumps intact without infx + BUEXT edema = fluid overloaded SKIN: No rash, no diaphoresis ID ASSESSMENT 68 yo M admit with: 1. Sepsis with gram-negative adele bacteremia, present on admission 2. E. coli ESBL UTI 3. Acute on chronic kidney disease 4. Chronic respiratory failure, possible pneumonia * Trached 02/19/18 5. CHF 6. Diabetes 7. PAD => Hx of BLEXT BKA = stumps healed, no evidence infx 8. 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 History of CABG * ASHD w/hx of CABG (AHUJA>LAD) + AoV Replacement June 2017 (+)MRSA Nares-> Bactroban ABX ALLERGIES: NKDA INVASIVES: PIV LUEXT, Trach, Peg, FC CURRENT ABX: DAY # Merrem ID RECOMMENDATIONS/PLAN: 1. ==>Continue Merrem -- 10 day course 2. Bactroban to bilateral nares . Consultation Date/Type/Reason Admit Date/Time Oct 28, 2018 at 19:52 Initial Consult Date 10/29/18 Requesting Provider: JACKIE SHAVER Date/Time of Note DATE: 11/02/18 TIME: 20:14 Exam/Review of Systems Exam Vitals Vital Signs Date Temp Pulse Resp B/P (MAP) Pulse Ox O2 O2 Flow FiO2 Time Delivery Rate 11/02/18 98.8 60 14 93/46 (62) 98 Mechanical 19:52 Ventilator 11/02/18 35 17:22 Intake and Output 11/01/18 11/01/18 11/02/18 1515:00 23:00 07:00 IntakeIntake Total 50 ml 630 ml OutputOutput Total 1100 ml 50 ml BalanceBalance -1050 ml 580 ml Results Result Diagram: 10/31/18 0607 10/31/18 0607 Results 24hrs Laboratory Tests Test 11/01/18 20:54 11/02/18 01:55 11/02/18 05:38 11/02/18 08:31 Bedside Glucose 238 H 245 H 214 215 Test 11/02/18 12:48 Bedside Glucose 218 Medications Medication Current Medications Ondansetron HCl (Zofran Inj) 4 mg Q6H PRN IV NAUSEA/VOMITING; Start 10/28/18 at 20:30 Alprazolam (Xanax) 0.25 mg TID PRN PO ANXIETY; Start 10/28/18 at 20:30 Ondansetron HCl (Zofran Tab) 4 mg Q4H PRN PO NAUSEA AND/OR VOMITING; Start 10/28/18 at 20:30 Senna (Senokot) 1 tab BID PO Last administered on 11/01/18at 21:01; Admin Dose 1 TAB; Start 10/28/18 at 21:00 Miscellaneous Information 1 ea NOTE XX ; Start 10/29/18 at 12:00 Hydromorphone HCl 50 mg/Dextrose 55 ml @ 0 mls/hr TITRATE IV ; Start 11/02/18 at 16:00 Acetaminophen (Tylenol Tab) 650 mg Q4H PRN PO MILD DISCOMFORT OR TEMP>99.5F; Start 11/02/18 at 16:00 Lorazepam (Ativan) 1 mg Q2 PRN IV ANXIETY/SEIZURES; Start 11/02/18 at 16:00 Ondansetron HCl (Zofran Inj) 4 mg Q6H PRN IV NAUSEA AND/OR VOMITING; Start 11/02/18 at 16:00 Atropine Sulfate (Atropine 1% Oph) 2 drop Q4H PRN SL TERMINAL CONGESTION; Start 11/02/18 at 16:00 Eye Lubricant (Artificial Tears Oph) 2 drop EACH SHIFT PRN BOTH EYES DRY EYES; Start 11/02/18 at 16:00 Dimethicone (Blistex Lip [place]) 1 applic EACH SHIFT PRN TOP DRY LIP(S); Start 11/02/18 at 16:00 JAVI SALINAS NP Nov 02, 2018 20:15
--- NOTE | 2018-11-03 15:33 | DES ---
Date/Time of Note Date/Time of Note DATE: 11/03/18 TIME: 15:32 Discharge/ Summary Admission/Discharge Info Admit Date/Time Oct 28, 2018 at 19:52 Date/Time 11/02/18 22:20 Final Diagnosis 1) renal failure 2) respiratory failure 3) coronary artery disease Preliminary Cause of renal failure Admit History Patient with diabetes, bilateral below knee amputations, respiratory failure comes from subacute because labs show elevating BUN/Cr. Patient was transferred to the ER and admitted for further evaluation and treatment for renal failure. Hospital Course Patient with diabetes, bilateral below knee amputations, respiratory failure comes from subacute because labs show elevating BUN/Cr. Patient was transferred to the ER and admitted for further evaluation and treatment for renal failure. Upon discussion with family, they declared that the patient would not want to be on hemodialysis and so patient was made DNR and placed on comfort care. After several days, patient was extubated and he shortly. 1) Worsening renal failure - family opted against hemodialysis - patient is DNR 2) respiratory failure - on trach, is stable 3) coronary artery disease - no evidence of acute exacerbation JACKIE SHAVER Nov 03, 2018 15:33
== END 2018-11-02 21:11 | disposition expired | DRG 870 ==
LOC: E/R 18:09 → TEL 19:52
PROVIDERS: ADMIT Internal Medicine; ATTEND Internal Medicine
PROC: 5A1955Z Respiratory Ventilation, Greater than 96 Consecutive Hours (ICD-10-PCS; principal; 2018-10-28)
DX: A41.51 Sepsis due to Escherichia coli [E. coli] (principal); N18.6 End stage renal disease; N17.9 Acute kidney failure, unspecified; E87.1 Hypo-osmolality and hyponatremia; N39.0 Urinary tract infection, site not specified; I13.2 Hypertensive heart and chronic kidney disease with heart failure and with stage 5 chronic kidney disease, or end stage renal disease; G93.49 Other encephalopathy; J96.10 Chronic respiratory failure, unspecified whether with hypoxia or hypercapnia; I48.92 Unspecified atrial flutter; Z99.11 Dependence on respirator [ventilator] status; Z66 Do not resuscitate; I25.10 Atherosclerotic heart disease of native coronary artery without angina pectoris; I50.9 Heart failure, unspecified; G40.909 Epilepsy, unspecified, not intractable, without status epilepticus; R13.10 Dysphagia, unspecified; E78.5 Hyperlipidemia, unspecified; E11.51 Type 2 diabetes mellitus with diabetic peripheral angiopathy without gangrene; D64.9 Anemia, unspecified; D69.6 Thrombocytopenia, unspecified; I48.91 Unspecified atrial fibrillation; Z93.0 Tracheostomy status; Z93.1 Gastrostomy status; Z95.0 Presence of cardiac pacemaker; Z89.512 Acquired absence of left leg below knee; Z89.511 Acquired absence of right leg below knee; Z95.1 Presence of aortocoronary bypass graft; Z95.3 Presence of xenogenic heart valve; Z22.322 Carrier or suspected carrier of Methicillin resistant Staphylococcus aureus; Z79.4 Long term (current) use of insulin; Z88.0 Allergy status to penicillin
CPT/HCPCS: 36415; 71045; 76700; 80048; 80053; 81001; 81003; 82550; 82962; 83036; 83735; 84300; 84560; 85025; 85610; 85730; 87081; 87086; 89190; 93005; 94002; 94003; J0692; J1650; J1815; J2185; P9047